=== PATIENT | male | born 1955 | race Caucasian/White ===

== ENCOUNTER 2020-12-15 20:08 | Emergency (ER) | payer BC, SELFPAY ==
[2020-12-15 20:13] VITALS: BP 179/89; PULSE 121; RESP 16; TEMP 36.8; O2SAT 97
--- NOTE | 2020-12-15 20:16 | ECG_ITS ---
Measurements Intervals [place] Rate: 120 P: 57 MD: 135 QRS: -11 QRSD: 93 T: 60 QT: 310 QTc: 440 Interpretive Statements SINUS TACHYCARDIA BORDERLINE ST ABNORMALITY- LATERAL LEADS BASELINE ARTIFACT- I, II, III, AVR, AVL,A VF, V1, V5-V6 ABNORMAL ECG Electronically Signed On 12-16-2020 8:20:40 [employer] by Nilson Jerez D.O.
--- NOTE | 2020-12-15 20:45 | ED.RECABL ---
HPI - Recheck/Abnormal Lab/Rx General Chief Complaint: Recheck/Abnormal Lab/Rx Stated Complaint: confusion and elevated BS Time Seen by Provider: 12/15/20 20:22 Source: patient Mode of arrival: ambulatory Limitations: no limitations History of Present Illness HPI narrative: A 65-year-old male was brought into the emergency department with his family member who expressed concern because they state that he has been acting odd and that his sugars have been high. Patient had an episode earlier today where he lost continence of his bowels and was somewhat altered. His sugars were checked and they were found to be high at that time. Ambulance was called. Patient states now laying in the bed he feels back to his normal self. Related Data Home Medications Medication Instructions Recorded Confirmed No Home Medications 12/16/20 12/16/20 Allergies Allergy/AdvReac Type Severity Reaction Status Date / Time No Known Allergies Allergy Verified 12/16/20 01:44 Review of Systems Review of Systems: Narrative: CONSTITUTIONAL: Denies fever, chills, or sweats. EYES: Denies visual changes, redness, or discharge. ENT: Denies rhinorrhea, congestion, sore throat, or otalgia. CARDIOVASCULAR: Denies chest pain, palpitations, or edema. RESPIRATORY: Denies cough or dyspnea. GASTROINTESTINAL: Denies abdominal pain, nausea, vomiting, or diarrhea. GENITOURINARY: Denies dysuria or hematuria. SKIN: Denies rash or itching. MUSCULOSKELETAL: Denies back pain, joint pain, or myalgia. NEUROLOGIC: Denies headache, numbness, dizziness, or weakness. PSYCHIATRIC: Denies anxiety or depression. Exam Narrative: Exam Narrative: GENERAL: Well-appearing, well-nourished, and in no acute distress. HEAD: Normocephalic, atraumatic. EYES: PERRLA and EOMI. ENT: Nares clear, no rhinorrhea or epistaxis. Mucous membranes moist. Oropharynx without tonsillar hypertrophy exudate or other lesions. Bilateral TMs pearly goldstein nonbulging NECK: Supple. No adenopathy or masses. No carotid bruits or JVD CHEST: Clear to auscultation. No respiratory distress. No wheezes rales or rhonchi HEART: Regular rate and rhythm. No murmur heard. Normal peripheral pulses. ABDOMEN: Soft, nontender, nondistended, normal active bowel sounds. EXTREMITIES: Normal range of motion. No edema. SKIN: Warm, dry, no rash. NEURO: No focal deficits. Alert and oriented x3. PSYCH: Normal mood and affect. Course Reevaluation(s) Reevaluation #1: Patient has been resting at this time. No further complaints. Patient's blood sugars have been on the decline. Time: 01:47 Vital Signs Vital signs: Vital Signs Temperature 36.8 C 12/15/20 20:13 Pulse Rate 121 H 12/15/20 20:13 Respiratory Rate 16 12/15/20 20:13 Blood Pressure 179/89 H 12/15/20 20:13 Pulse Oximetry 97 12/15/20 20:13 Temperature 36.8 C 12/15/20 20:13 Pulse Rate 101 H 12/16/20 01:30 Respiratory Rate 25 H 12/16/20 01:30 Blood Pressure 114/72 12/16/20 01:30 Pulse Oximetry 98 12/16/20 01:30 MDM - Recheck/Abnormal Lab/Rx MDM Narrative Medical decision making narrative: A 65-year-old male presents to the emergency department today with complaints of some confusion and elevated blood sugar. On my exam patient was alert appropriate and acting within reason. He was answering all questions correctly. Patient stated that he just felt unwell. Work-up ensued and showed that he had an elevated blood sugar, hyponatremia. When corrected his hyponatremia was only slightly below normal. Patient was given IV fluids and insulin. His sugars did decrease. Patient will need to follow-up with a primary care physician to get on a diabetic regimen. There is no signs of DKA at this time. Feel the patient may be discharged to follow-up with a PCP. Medical Records Attestation: I reviewed the patient's medical records. Lab Data Attestation: I reviewed the patient's lab results. Result diagrams: 12/15/20 21:16 12/15/20
[2020-12-15 21:00] VITALS: BP 103/58; PULSE 106; RESP 28; O2SAT 98
[2020-12-15 21:23] LABS: Basophils Absolute Auto 0.1 K/mm3 (0.0-0.1); Basophils Percent Auto 0.6 % (0.2-1.2); Eosinophils Percent Auto 0.1 % (0-4.4); Hematocrit 39.4 % (42.0-52.0); Hemoglobin 13.8 g/dL (14.0-18.0); Immature Granulocyte Absolute 0.11 K/mm3 (0.00-0.031); Immature Granulocyte Percent A 0.7 % (0-0.5); Lymphocytes Absolute Auto 0.98 K/mm3 (0.9-3.2); Lymphocytes Percent Auto 6.3 % (18.3-44.2); Mean Corpuscular Volume 88.5 fl (80-100); Mean Platelet Volume 8.4 fl (7.4-10.4); Monocytes Absolute Auto 1.1 K/mm3 (0.1-0.6); Monocytes Percent Auto 7.3 % (2.6-8.5); Neutrophils Absolute Auto 13.2 K/mm3 (1.3-6.7); Platelet Count Result 307 k/mm3 (150-375); Red Blood Count 4.45 M/mm3 (4.6-6.20); Red Cell Distribution Width 11.9 % (11.5-14.5); White Blood Count 15.6 K/mm3 (4.5-10.0)
[2020-12-15 21:28] LABS: Add Urine Microscopic? YES; Appearance Urine Clear (Clear); Bilirubin Urine Negative (Negative); Blood Urine 2+ (Negative); Color Urine Straw (Yellow); Glucose Urine UA 3+ mg/dL (Negative); Ketones Urine 2+ mg/dL (Negative); Leukocyte Esterase Ur Negative LEU/UL (Negative); Nitrate Urine Negative (Negative); Protein Urine 2+ mg/dL (Negative); Specific Grav Ur 1.028 (1.001-1.035); Urobilinogen Urine Negative mg/dL (<2.0); WBC Urine 0-3 /hpf
[2020-12-15 21:34] LABS: Alanine Aminotransferase 10 U/L (4-50); Albumin Level 3.5 g/dL (3.5-5.1); Alkaline Phosphatase 163 U/L (38-126); Anion Gap 9 mmol/L (8-16); Aspartate Amino Transferase 20 U/L (17-59); Bilirubin,Total 0.6 mg/dL (0.2-1.3); Blood Urea Nitrogen 10 mg/dL (9-20); Calcium 8.5 mg/dL (8.4-10.2); Carbon Dioxide 25 mmol/L (22-30); Chloride 92 mmol/L (98-107); Estimated CRCL calculation 80 ml/min; Estimated Glomerular Filt Rate > 60; Glucose 386 mg/dL (75-110); Lipase 23 U/L (23-300); Magnesium 1.8 mg/dL (1.6-2.3); Phosphorus 2.4 mg/dL (2.5-4.5); Potassium 3.6 mmol/L (3.4-5.0); Sodium 126 mmol/L (137-145)
[2020-12-15 21:38] LABS: Beta-Hydroxybutyrate/Acetoacetate 4.28 mmol/L (0.02-0.27)
[2020-12-15 21:41] LABS: Glucose Point of Care 387 (65-105)
[2020-12-15] MEDS: LACTATED RINGERS 1,000 ML 999 ML IV CONT (22:45)
[2020-12-15 23:00] VITALS: BP 123/76; PULSE 105; RESP 32; O2SAT 96
[2020-12-15 23:13] LABS: Fractional Inspired Oxygen 21 %; HCO3 VBG 21.4 mEq/l (24.0-30.0); PCO2 VBG 33.5 mmHg (42.0-48.0); pH VBG 7.424 (7.300-7.400)
[2020-12-15 23:15] LABS: Device ROOM AIR
[2020-12-15] MEDS: INSULIN HUMAN REGULAR (*BKC) 100 UNITS/ML SUB-Q (23:33)
[2020-12-16 00:15] LABS: Glucose Point of Care 359 (65-105)
[2020-12-16] MEDS: INSULIN HUMAN REGULAR (*BKC) 100 UNITS/ML IV PUSH (00:18)
[2020-12-16] MEDS: LACTATED RINGERS 1,000 ML 999 ML IV CONT (00:18)
[2020-12-16 01:30] VITALS: BP 114/72; PULSE 101; RESP 25; O2SAT 98
[2020-12-16 01:49] LABS: Glucose Point of Care 228 (65-105)
[2020-12-17 17:34] LABS: SARS-CoV-2 RNA PCR Negative
== END 2020-12-16 02:18 | disposition home or self-care (01) ==
PROVIDERS: Emergency Provider Emergency Medicine
DX: E11.65 Type 2 diabetes mellitus with hyperglycemia (principal); Z20.822 Contact with and (suspected) exposure to COVID-19
CPT/HCPCS: 36415; 80053; 81001; 82010; 82803; 82948; 83690; 83735; 83930; 84100; 85025; 93005; 96361; 96374; 99284; C9803; J1815; J7120; U0003; U0005

== ENCOUNTER → 2021-08-20 03:13 | Outpatient (CLI) | payer BC, MEDICAID, SELFPAY ==
[2021-08-20 19:13] LABS: SARS-CoV-2 RNA PCR Negative
== END ==
PROVIDERS: Visit Provider Internal Medicine Gastroenterology
DX: Z20.822 Contact with and (suspected) exposure to COVID-19 (principal)
CPT/HCPCS: C9803; U0003; U0005

== ENCOUNTER 2021-08-23 00:50 | Day surgery (SDC) | payer BC, MEDICAID, SELFPAY ==
[2021-08-08 12:59] VITALS: BMI 28.3
--- NOTE | 2021-08-22 13:56 | PM.HPGS ---
History of Present Illness History of Present Illness Consent: Risks, benefits, and alternatives have been discussed and questions answered. Patient agrees to proceed with procedure. Chief complaint: diarrhea Narrative: Sukhdev Lowery III is a 66 year old male was had a change in bowel habits. he has been suffering from diarrhea for the past couple of years. Stopping metformin did not help. Review of Systems Review of Systems: All systems reviewed & are unremarkable except as noted in HPI and below PMFSH Past Medical History Medical History Diabetes Diarrhea HTN (hypertension) IBS (irritable bowel syndrome) Social History Social History Smoking status: Never smoker Alcohol intake: never Substance use: never Living arrangements: with family Spiritual care concerns: No Meds Home Medications and Allergies Home Medications Medication Instructions Recorded Confirmed Type cyclobenzaprine 10 mg tablet 10 mg PO .as needed PRN tablet 08/05/21 08/23/21 History gabapentin 300 mg capsule 300 mg PO HS cap 08/05/21 08/23/21 History insulin aspart U-100 100 unit/mL 8 unit SUBCUT TID ml 08/05/21 08/23/21 History (3 mL) subcutaneous pen insulin detemir U-100 100 unit/mL 24 unit SUBCUT QPM ml 08/05/21 08/23/21 History (3 mL) subcutaneous pen lisinopril 20 mg tablet 20 mg PO DAILY 08/05/21 08/23/21 History metoprolol tartrate 50 mg tablet 25 mg PO BID tablet 08/05/21 08/23/21 History Allergies Allergy/AdvReac Type Severity Reaction Status Date / Time No Known Allergies Allergy Verified 08/23/21 10:18 Exam Resp: Auscultation: clear to auscultation bilaterally Cardio: Rate: regular rate Rhythm: regular rhythm GI: GI Palp: Yes Soft to palpation and No Tenderness to palpation present (GI) Assessment and Plan Assessment and plan (1) Diarrhea: Code(s): R19.7 - Diarrhea, unspecified Status: Acute Assessment and Plan: Colonoscopy with possible biopsy or polypectomy or cautery or injection of substances.
[2021-08-23 10:07] LABS: Glucose Point of Care 192 mg/dl (65-105)
[2021-08-23 10:20] VITALS: BP 102/64; PULSE 67; RESP 14; TEMP 35.7; O2SAT 97
[2021-08-23] MEDS: LACTATED RINGERS 1,000 ML 150 ML IV CONT (10:27)
--- NOTE | 2021-08-23 10:36 | WPDANESEPPF ---
Anes - Initial Pre Proc Eval Procedure: Operation Date: 08/23/21 11:00 Proposed Procedures p Colonoscopy - Cm Wilks MD Date/Time: 08/23/21 10:36 Surgeon: Cm Wilks MD Pre Op Diagnosis: diarrhea Patient Data Age: 66 Gender: M Height: 1.7 m Weight: 81.8 kg Last Vital Signs Temp 96.3 F L 08/23/21 10:20 Pulse 67 08/23/21 10:20 Resp 14 08/23/21 10:20 BP 102/64 08/23/21 10:20 Pulse Ox 97 08/23/21 10:20 Allergies Allergy/AdvReac Type Severity Reaction Status Date / Time No Known Allergies Allergy Verified 08/23/21 10:18 Home Medications Medication Instructions Recorded Confirmed Type cyclobenzaprine 10 mg tablet 10 mg PO .as needed PRN tablet 08/05/21 08/23/21 History gabapentin 300 mg capsule 300 mg PO HS cap 08/05/21 08/23/21 History insulin aspart U-100 100 unit/mL 8 unit SUBCUT TID ml 08/05/21 08/23/21 History (3 mL) subcutaneous pen insulin detemir U-100 100 unit/mL 24 unit SUBCUT QPM ml 08/05/21 08/23/21 History (3 mL) subcutaneous pen lisinopril 20 mg tablet 20 mg PO DAILY 08/05/21 08/23/21 History metoprolol tartrate 50 mg tablet 25 mg PO BID tablet 08/05/21 08/23/21 History Laboratory Tests 08/23/21 10:03 POC Capillary Glucose 192 mg/dl H mg/dl (65-105) Patient hx anesthesia problems: none Family hx anesthesia problems: none Results Review: All pre-operative results and documents have been reviewed as part of the pre-operative evaluation. [facility] Past Medical History Medical History (Updated 08/05/21 @ 12:11 by TESSA Brink) Diabetes Diarrhea HTN (hypertension) IBS (irritable bowel syndrome) Social History Social History Smoking status: Never smoker Alcohol intake: never Substance use: never Living arrangements: with family Spiritual care concerns: No Anes - Eval Final PreProcedure Day of Procedure 08/23/21 10:36 Patient weight: normal Heart: regular rate and rhythm Lungs: clear to auscultation Airway: Mallampati scale class II Neurological: alert and oriented Last oral intake: >/= 8 hours ASA classification: II Emergent: no Anesthetic plan: proceed Anesthesia type and monitoring: general GIVS and standard monitoring Results Review: All pre-operative results and documents have been reviewed as part of the pre-operative evaluation. Informed Consent: The patient's anesthetic plan and its attendant risks and benefits were discussed with the patient/family/POA. Questions were solicited and answers provided to the satisfaction of the patient/family/POA.
[2021-08-23 11:19] VITALS: BP 81/52; PULSE 75; RESP 21; O2SAT 98
[2021-08-23 11:29] VITALS: BP 82/53; PULSE 77; RESP 19; O2SAT 98
[2021-08-23 11:38] VITALS: BP 102/75; PULSE 80; RESP 26; O2SAT 80
== END 2021-08-23 11:53 | disposition home or self-care (01) ==
PROVIDERS: PCP Family Medicine; Visit Provider Internal Medicine Gastroenterology
PROC: 0DJD8ZZ Inspection of Lower Intestinal Tract, Via Natural or Artificial Opening Endoscopic (ICD-10-PCS; CPT 45378; principal; 2021-08-23 11:00)
DX: Z12.11 Encounter for screening for malignant neoplasm of colon (principal); D12.2 Benign neoplasm of ascending colon; D12.4 Benign neoplasm of descending colon; D12.5 Benign neoplasm of sigmoid colon; K63.5 Polyp of colon; R19.7 Diarrhea, unspecified; Z79.4 Long term (current) use of insulin; E11.9 Type 2 diabetes mellitus without complications; I10 Essential (primary) hypertension; K58.9 Irritable bowel syndrome, unspecified
CPT/HCPCS: 45380; 45385; 82948; 88305; J2704; J7120

== ENCOUNTER 2022-03-27 10:27 | Outpatient (CLI) | payer BC, MEDICAID, SELFPAY ==
--- NOTE | ~2022-03-27 | XR_ITS ---
EXAMINATION: XR chest 2V DATE: 03/27/2022 11:06 INDICATION: Dyspnea. Cough and congestion. Midsternal chest pain. TECHNIQUE: frontal and lateral views of the chest were obtained. COMPARISON: None FINDINGS: Opacities in the bilateral mid and lower lung zones which could represent pneumonia, mild pulmonary e alba, atelectasis or some combination thereof. Likely small bilateral pleural effusions with blunting at the bilateral posterior sulci and costophrenic angles. The cardiomediastinal silhouette is normal . Mild thoracic spondylosis. T12 compression fracture with 40% anterior vertebral body height loss. A dditional minimal anterior wedging at T8 and T9. IMPRESSION: 1. Opacities in the bilateral mid and lower lung zones which could represent pneumonia, pulmonary laura ma, atelectasis or some combination thereof. 2. Small bilateral pleural effusions. Reviewed, dictated and finalized at location A. IMPRESSION: 1. Opacities in the bilateral mid and lower lung zones which could represent pn eumonia, pulmonary edema, atelectasis or some combination thereof. 2. Small bilateral pleural effusions.
[2022-03-27 10:59] LABS: Basophils Absolute Auto 0.07 K/mm3 (0.00-0.10); Eosinophils Absolute Auto 0.05 K/mm3 (0.02-0.50); Eosinophils Percent Auto 0.7 % (1.0-6.0); Hematocrit 36.5 % (40.0-54.0); Hemoglobin 12.5 g/dL (14.0-18.0); Immature Granulocyte Absolute 0.01 K/mm3 (0.00-0.00); Immature Granulocyte Percent A 0.1 % (0.0-0.0); Lymphocytes Absolute Auto 1.48 K/mm3 (1.10-4.50); Lymphocytes Percent Auto 21.2 % (18.0-42.0); Mean Corpuscular HGB Conc 34.2 g/dL (32.0-36.0); Mean Corpuscular Hemoglobin 30.4 pg (27.0-31.0); Mean Corpuscular Volume 88.8 fL (78.0-102.0); Mean Platelet Volume 9.2 fl (8.7-11.0); Monocytes Absolute Auto 0.49 K/mm3 (0.10-0.90); Neutrophils Absolute Auto 4.9 K/mm3 (1.7-7.2); Platelet Count Result 196 K/mm3 (150-420); Red Blood Count 4.11 M/mm3 (4.70-6.10); Red Cell Distribution Width 13.3 % (11.6-14.4)
[2022-03-27 11:14] LABS: Hemoglobin A1C 4.8 % (<5.7)
[2022-03-27 11:27] LABS: Alanine Aminotransferase 19 U/L (16-63); Albumin Level 1.7 g/dL (3.4-5.0); Alkaline Phosphatase 76 U/L (46-116); Anion Gap 3 mmol/L (8-16); Aspartate Amino Transferase 45 U/L (15-37); Bilirubin,Total 0.3 mg/dL (0.00-1.00); Blood Urea Nitrogen 28 mg/dL (7-18); Carbon Dioxide 29 mmol/L (21-32); Chloride 108 mmol/L (98-108); Estimated Glomerular Filt Rate 58; Glucose 73 mg/dL (70-99); NT Pro B Type Natriuretic Pept 4802 pg/mL (0-125); Osmolality Calculated 294 mOsm/kg (285-295); Potassium 3.6 mmol/L (3.5-5.1); Sodium 140 mmol/L (136-145); Total Protein 5.6 g/dL (6.4-8.2)
[2022-03-27 13:06] LABS: Creatinine Urine 88.79 mg/dL (40-278); MALB Creatinine Ratio 450.5 mg/g (0-30); Microalbumin Urine Random > 400.0 mg/L
[2022-03-31 12:48] LABS: Vitamin D 25 Hydroxy 6 ng/mL (30-100)
== END 2022-03-27 10:28 | disposition home or self-care (01) ==
LOC: CHSLAB 10:36
PROVIDERS: PCP Family Medicine
DX: R06.00 Dyspnea, unspecified (principal); E11.8 Type 2 diabetes mellitus with unspecified complications; N18.9 Chronic kidney disease, unspecified; R80.9 Proteinuria, unspecified
CPT/HCPCS: 36415; 71046; 80053; 82043; 82306; 83036; 83880; 84550; 85025

== ENCOUNTER 2022-03-29 08:25 | Outpatient (CLI) | payer BC, MEDICAID, SELFPAY ==
[2022-03-29 08:41] LABS: Basophils Absolute Auto 0.06 K/mm3 (0.00-0.10); Basophils Percent Auto 1.1 % (0.0-1.0); Eosinophils Absolute Auto 0.16 K/mm3 (0.02-0.50); Eosinophils Percent Auto 3.1 % (1.0-6.0); Hematocrit 33.9 % (40.0-54.0); Hemoglobin 11.4 g/dL (14.0-18.0); Immature Granulocyte Absolute 0.01 K/mm3 (0.00-0.00); Immature Granulocyte Percent A 0.2 % (0.0-0.0); Lymphocytes Percent Auto 38.3 % (18.0-42.0); Mean Corpuscular HGB Conc 33.6 g/dL (32.0-36.0); Mean Corpuscular Hemoglobin 30.1 pg (27.0-31.0); Mean Corpuscular Volume 89.4 fL (78.0-102.0); Mean Platelet Volume 8.4 fl (8.7-11.0); Monocytes Absolute Auto 0.36 K/mm3 (0.10-0.90); Monocytes Percent Auto 6.9 % (2.0-11.0); Neutrophils Absolute Auto 2.6 K/mm3 (1.7-7.2); Neutrophils Percent Auto 50.4 % (50.0-70.0); Platelet Count Result 209 K/mm3 (150-420); Red Blood Count 3.79 M/mm3 (4.70-6.10); Red Cell Distribution Width 13.3 % (11.6-14.4); White Blood Count 5.2 K/mm3 (4.8-10.8)
[2022-03-29 09:06] LABS: Alanine Aminotransferase 25 U/L (16-63); Albumin Level 1.6 g/dL (3.4-5.0); Alkaline Phosphatase 71 U/L (46-116); Anion Gap 5 mmol/L (8-16); Aspartate Amino Transferase 50 U/L (15-37); Bilirubin,Total 0.1 mg/dL (0.00-1.00); Blood Urea Nitrogen 34 mg/dL (7-18); Calcium 7.8 mg/dL (8.5-10.1); Carbon Dioxide 29 mmol/L (21-32); Chloride 106 mmol/L (98-108); Estimated Glomerular Filt Rate 56; Glucose 67 mg/dL (70-99); NT Pro B Type Natriuretic Pept 2634 pg/mL (0-125); Osmolality Calculated 295 mOsm/kg (285-295); Potassium 3.5 mmol/L (3.5-5.1); Sodium 140 mmol/L (136-145); Total Protein 5.3 g/dL (6.4-8.2)
== END 2022-03-29 08:26 | disposition home or self-care (01) ==
LOC: CHSLAB 08:28
PROVIDERS: PCP Family Medicine; Visit Provider Family Medicine
DX: I50.9 Heart failure, unspecified (principal)
CPT/HCPCS: 36415; 80053; 83880; 85025

== ENCOUNTER 2022-03-31 13:30 | Outpatient (CLI) | payer BC, MEDICAID, SELFPAY ==
--- NOTE | 2022-03-31 14:24 | ECHO_ITS ---
Patient Info Name: Sukhdev Lowery Age: 66 years : 1955 Gender: Male Ht: 68 in Wt: 210 lbs BSA: 2.17 m2 HR: 72 bpm BP: 191 / 75 mmHg Technical Quality: Good Exam Date: 03/31/2022 1:30 PM Exam Location: [facility] Patient Status: Outpatient Admit Date: 03/31/2022 Staff Ordering Physician: Adryan Galarza MD Art Supervisor: Will Martin, MARIBELL, RT Attending Provider: Adryan Galarza MD Referring Physician: Geovanni GONZALES; Exam Type: CA echo doppler color flow Study Info Indications I50.9 - Heart failure, unspecified Complete two-dimensional, color flow and Doppler transthoracic echocardiogram is performed. Strain analysis performed. Summary 1. Complete two-dimensional, color flow and Doppler transthoracic echocardiogram is performed. 2. Left ventricular chamber dimension is normal. 3. Left ventricular systolic function is normal, estimated at 55-60%. 4. There is moderately increased left ventricular wall thickness. 5. The left ventricular diastolic function is grade I diastolic dysfunction. 6. E/e' 18 is elevated. 7. Global longitudinal strain is mildly abnormal at -16.8%. 8. Left atrial chamber dimension is mildly enlarged. 9. There is moderate aortic valve sclerosis. 10. There is mild aortic valve stenosis with a peak velocity of 146 cm/s, mean gradient of 4 mmHg, and aortic valve area of 1.9 cm2. 11. The mitral valve has mildly calcified annulus. 12. There is mild mitral valve regurgitation. 13. There is trace tricuspid valve regurgitation. 14. Moderate pulmonary hypertension, estimated pulmonary arterial systolic pressure is 53 mmHg. Left Ventricle E/e' 18 is elevated. Global longitudinal strain is mildly abnormal at -16.8%. Left ventricular chamber dimension is normal. Left ventricular systolic function is normal, estimated at 55-60%. There is moderately increased left ventricular wall thickness. The left ventricular diastolic function is grade I diastolic dysfunction. Right Ventricle Right ventricular systolic function is normal and with normal TAPSE 2.7 cm. Right ventricular chamber dimension is normal. Left Atria Left atrial chamber dimension is mildly enlarged. Right Atria Right atrial chamber dimension is normal. Aortic Valve The aortic valve is trileaflet. There is moderate aortic valve sclerosis. There is mild aortic valve stenosis with a peak velocity of 146 cm/s, mean gradient of 4 mmHg, and aortic valve area of 1.9 cm2. There is no aortic valve regurgitation. Pulmonic Valve There is no pulmonic regurgitation. Mitral Valve The mitral valve has mildly calcified annulus. There is no mitral valve stenosis. There is mild mitral valve regurgitation. Tricuspid Valve There is trace tricuspid valve regurgitation. Moderate pulmonary hypertension, estimated pulmonary arterial systolic pressure is 53 mmHg. Pericardium/Pleural There is no pericardial effusion. Inferior Vena Cava Normal inferior vena cava with >50% collapse upon inspiration consistent with normal right atrial pressure, 5 mmHg. Aorta The aortic root size at the sinus of Valsalva is normal. Left Ventricular Outflow Tract Name Value Normal LVOT 2D LVOT Diameter 2.0 cm
== END 2022-03-31 13:31 | disposition home or self-care (01) ==
LOC: CHSIMG 13:32
PROVIDERS: PCP Family Medicine; Visit Provider Family Medicine
DX: I50.9 Heart failure, unspecified (principal)
CPT/HCPCS: 93306

== ENCOUNTER 2022-10-29 13:15 | Outpatient (CLI) | payer BC, MEDICAID, SELFPAY ==
[2022-10-29 13:51] LABS: Alanine Aminotransferase 18 U/L (16-63); Albumin Level 3.1 g/dL (3.4-5.0); Alkaline Phosphatase 91 U/L (46-116); Anion Gap 9 mmol/L (8-16); Aspartate Amino Transferase 17 U/L (15-37); Bilirubin,Total 0.1 mg/dL (0.00-1.00); Blood Urea Nitrogen 74 mg/dL (7-18); Calcium 8.2 mg/dL (8.5-10.1); Carbon Dioxide 20 mmol/L (21-32); Chloride 108 mmol/L (98-108); Estimated Glomerular Filt Rate 25; Glucose 132 mg/dL (70-99); Osmolality Calculated 307 mOsm/kg (285-295); Potassium 5.9 mmol/L (3.5-5.1); Sodium 137 mmol/L (136-145); Total Protein 6.5 g/dL (6.4-8.2)
== END 2022-10-29 13:16 | disposition home or self-care (01) ==
LOC: CHSLAB 13:18
PROVIDERS: PCP Family Medicine; Visit Provider Family Medicine
DX: E11.8 Type 2 diabetes mellitus with unspecified complications (principal)
CPT/HCPCS: 36415; 80053

== ENCOUNTER 2022-11-01 09:10 | Outpatient (CLI) | payer MEDICARE, BC, MEDICAID, SELFPAY ==
[2022-11-01 09:48] LABS: Anion Gap 13 mmol/L (8-16); Blood Urea Nitrogen 59 mg/dL (7-18); Calcium 7.9 mg/dL (8.5-10.1); Carbon Dioxide 18 mmol/L (21-32); Chloride 111 mmol/L (98-108); Estimated Glomerular Filt Rate 23; Glucose 152 mg/dL (70-99); Osmolality Calculated 313 mOsm/kg (285-295); Potassium 4.6 mmol/L (3.5-5.1); Sodium 142 mmol/L (136-145)
== END 2022-11-01 09:11 | disposition home or self-care (01) ==
PROVIDERS: PCP Family Medicine
DX: E87.5 Hyperkalemia (principal)
CPT/HCPCS: 36415; 80048

== ENCOUNTER 2022-11-05 09:34 | Outpatient (CLI) | payer BC, MEDICAID, SELFPAY ==
[2022-11-05 10:31] LABS: Anion Gap 10 mmol/L (8-16); Blood Urea Nitrogen 85 mg/dL (7-18); Carbon Dioxide 24 mmol/L (21-32); Chloride 108 mmol/L (98-108); Estimated Glomerular Filt Rate 21; Glucose 172 mg/dL (70-99); Osmolality Calculated 323 mOsm/kg (285-295); Potassium 3.3 mmol/L (3.5-5.1); Sodium 142 mmol/L (136-145)
== END 2022-11-05 09:35 | disposition home or self-care (01) ==
PROVIDERS: PCP Family Medicine
DX: E87.5 Hyperkalemia (principal)
CPT/HCPCS: 36415; 80048

== ENCOUNTER 2022-11-27 08:59 | Outpatient (CLI) | payer BC, MEDICAID, SELFPAY ==
[2022-11-27 09:53] LABS: Creatinine Urine 35.64 mg/dL (40-278)
[2022-11-27 09:59] LABS: MALB Creatinine Ratio 1122.3 mg/g (0-30); Microalbumin Urine Random > 400.0 mg/L
[2022-11-27 10:32] LABS: Anion Gap 9 mmol/L (8-16); Blood Urea Nitrogen 79 mg/dL (7-18); Calcium 8.3 mg/dL (8.5-10.1); Carbon Dioxide 28 mmol/L (21-32); Chloride 101 mmol/L (98-108); Estimated Glomerular Filt Rate 27; Glucose 176 mg/dL (70-99); Osmolality Calculated 313 mOsm/kg (285-295); Potassium 2.8 mmol/L (3.5-5.1); Sodium 138 mmol/L (136-145); Uric Acid 8.5 mg/dL (3.5-7.2)
== END 2022-11-27 09:00 | disposition home or self-care (01) ==
LOC: CHSLAB 09:04
PROVIDERS: PCP Family Medicine
DX: N18.4 Chronic kidney disease, stage 4 (severe) (principal)
CPT/HCPCS: 36415; 80048; 82043; 84550

== ENCOUNTER 2022-12-15 09:09 | Outpatient (CLI) | payer BC, MEDICAID, SELFPAY ==
[2022-12-15 10:01] LABS: Anion Gap 9 mmol/L (8-16); Blood Urea Nitrogen 66 mg/dL (7-18); Carbon Dioxide 27 mmol/L (21-32); Chloride 105 mmol/L (98-108); Estimated Glomerular Filt Rate 36; Glucose 186 mg/dL (70-99); Magnesium 2.1 mg/dL (1.8-2.4); Osmolality Calculated 316 mOsm/kg (285-295); Potassium 3.2 mmol/L (3.5-5.1); Sodium 141 mmol/L (136-145)
[2022-12-18 21:00] LABS: Cortisol Random 22.8 mcg/dL (***)
== END 2022-12-15 09:10 | disposition home or self-care (01) ==
LOC: CHSLAB 09:15
PROVIDERS: PCP Family Medicine
DX: N18.4 Chronic kidney disease, stage 4 (severe) (principal)
CPT/HCPCS: 36415; 80048; 82533; 83735

== ENCOUNTER 2023-01-27 09:00 | Outpatient (CLI) | payer MEDICARE, MEDICAID, SELFPAY ==
[2023-01-27 09:38] LABS: Appearance Urine Clear (Clear); Bilirubin Urine Negative (Negative); Blood Urine 2+ (Negative); Color Urine Light Yellow (Yellow); Glucose Urine UA Trace (Negative); Ketones Urine Negative (Negative); Leukocyte Esterase Ur Negative (Negative); Nitrate Urine Negative (Negative); Protein Urine 3+ (Negative); Urobilinogen Urine 0.2 mg/dL (0.2-1.0)
[2023-01-27 09:55] LABS: Add Urine Microscopic? YES; Bacteria Urine Trace /hpf; WBC Urine None seen /hpf (0-3)
[2023-01-27 10:13] LABS: Creatinine Urine 33.58 mg/dL (40-278)
[2023-01-27 10:14] LABS: MALB Creatinine Ratio 1191.1 mg/g (0-30); Microalbumin Urine Random > 400.0 mg/L; Total Protein Urine Random > 250.0 mg/dL (0.0-11.9)
[2023-01-27 10:24] LABS: Anion Gap 9 mmol/L (8-16); Blood Urea Nitrogen 54 mg/dL (7-18); Carbon Dioxide 26 mmol/L (21-32); Chloride 111 mmol/L (98-108); Estimated Glomerular Filt Rate 35; Glucose 114 mg/dL (70-99); Magnesium 1.9 mg/dL (1.8-2.4); Osmolality Calculated 317 mOsm/kg (285-295); Potassium 3.4 mmol/L (3.5-5.1); Sodium 146 mmol/L (136-145); Uric Acid 6.3 mg/dL (3.5-7.2)
[2023-01-30 05:33] LABS: Anti Nuclear Antibody Pattern Nuclear, Speckled
[2023-01-30 21:05] LABS: Albumin 2.8 g/dL (3.8-4.8); Alpha 1 Globulin 0.3 g/dL (0.2-0.3); Alpha 2 Globulin 0.6 g/dL (0.5-0.9); Beta 1 Globulin 0.3 g/dL (0.4-0.6); Gamma Globulin 0.9 g/dL (0.8-1.7); Protein, Total 5.1 g/dL (6.1-8.1)
[2023-01-30 21:43] LABS: Kappa\\Lambda Light Chains 2.57 (0.26-1.65); Lambda Light Chain 46.8 mg/L (5.7-26.3)
== END 2023-01-27 09:01 | disposition home or self-care (01) ==
LOC: CHSLAB 09:04
PROVIDERS: PCP Family Medicine
DX: N18.4 Chronic kidney disease, stage 4 (severe) (principal); R80.9 Proteinuria, unspecified
CPT/HCPCS: 36415; 80048; 81001; 81050; 82043; 83735; 83883; 84155; 84156; 84165; 84550; 86038; 86039; 86334

== ENCOUNTER 2023-02-10 08:45 | Outpatient (CLI) | payer MEDICARE, SELFPAY ==
[2023-02-10 09:31] LABS: Anion Gap 7 mmol/L (8-16); Blood Urea Nitrogen 60 mg/dL (7-18); Carbon Dioxide 30 mmol/L (21-32); Chloride 112 mmol/L (98-108); Estimated Glomerular Filt Rate 32; Glucose 160 mg/dL (70-99); Magnesium 2.1 mg/dL (1.8-2.4); Osmolality Calculated 327 mOsm/kg (285-295); Potassium 3.3 mmol/L (3.5-5.1); Sodium 149 mmol/L (136-145)
[2023-02-13 04:16] LABS: Cortisol Random 19.2 mcg/dL (***)
== END 2023-02-10 08:46 | disposition home or self-care (01) ==
LOC: CHSLAB 08:49
PROVIDERS: PCP Family Medicine
DX: N18.4 Chronic kidney disease, stage 4 (severe) (principal)
CPT/HCPCS: 36415; 80048; 82533; 83735

== ENCOUNTER 2023-03-23 08:58 | Outpatient (CLI) | payer MEDICARE, SELFPAY ==
[2023-03-23 09:42] LABS: Creatinine Urine 62.38 mg/dL (40-278)
[2023-03-23 09:44] LABS: Anion Gap 9 mmol/L (8-16); Blood Urea Nitrogen 80 mg/dL (7-18); Carbon Dioxide 24 mmol/L (21-32); Chloride 111 mmol/L (98-108); Estimated Glomerular Filt Rate 23; Glucose 136 mg/dL (70-99); Magnesium 2.1 mg/dL (1.8-2.4); Osmolality Calculated 324 mOsm/kg (285-295); Potassium 4.1 mmol/L (3.5-5.1); Sodium 144 mmol/L (136-145)
[2023-03-23 10:13] LABS: MALB Creatinine Ratio 641.2 mg/g (0-30); Microalbumin Urine Random > 400.0 mg/L; Total Protein Urine Random > 250.0 mg/dL (0.0-11.9)
== END 2023-03-23 08:59 | disposition home or self-care (01) ==
LOC: CHSLAB 09:02
PROVIDERS: PCP Family Medicine
DX: N18.4 Chronic kidney disease, stage 4 (severe) (principal)
CPT/HCPCS: 36415; 80048; 81050; 82043; 83735; 84156

== ENCOUNTER 2023-05-21 08:45 | Outpatient (CLI) | payer MEDICARE, MEDICAID, SELFPAY ==
[2023-05-21 09:26] LABS: Hemoglobin 10.6 g/dL (12.4-15.3); Mean Corpuscular HGB Conc 34.2 g/dL (32.0-36.0); Mean Corpuscular Hemoglobin 30.5 pg (27.0-31.0); Mean Corpuscular Volume 89.3 fL (78.0-102.0); Mean Platelet Volume 9.3 fl (8.7-11.0); Platelet Count Result 159 K/mm3 (150-420); Red Blood Count 3.47 M/mm3 (4.70-6.10); Red Cell Distribution Width 13.1 % (11.6-14.4)
[2023-05-21 09:58] LABS: Creatinine Urine 35.92 mg/dL (40-278)
[2023-05-21 10:01] LABS: Anion Gap 8 mmol/L (8-16); Blood Urea Nitrogen 56 mg/dL (7-18); Calcium 8.1 mg/dL (8.5-10.1); Carbon Dioxide 23 mmol/L (21-32); Chloride 111 mmol/L (98-108); Estimated Glomerular Filt Rate 29; Glucose 116 mg/dL (70-99); Osmolality Calculated 310 mOsm/kg (285-295); Potassium 4.2 mmol/L (3.5-5.1); Sodium 142 mmol/L (136-145)
[2023-05-21 10:54] LABS: MALB Creatinine Ratio 1113.5 mg/g (0-30); Ur Ttl Prot Creatinine Ratio 6.96 mg/mg (0-0.20)
[2023-05-21 10:55] LABS: Microalbumin Urine Random > 400.0 mg/L; Total Protein Urine Random > 250.0 mg/dL (0.0-11.9)
[2023-05-23 17:22] LABS: Complement Total CH50 >60 U/mL (31-60)
[2023-05-23 21:34] LABS: Kappa\\Lambda Light Chains 2.51 (0.26-1.65); Lambda Light Chain 55.7 mg/L (5.7-26.3)
[2023-05-23 22:29] LABS: Albumin 2.4 g/dL (3.8-4.8); Alpha 1 Globulin 0.3 g/dL (0.2-0.3); Alpha 2 Globulin 0.7 g/dL (0.5-0.9); Beta 1 Globulin 0.3 g/dL (0.4-0.6); Protein, Total 4.9 g/dL (6.1-8.1)
[2023-05-24 07:50] LABS: Vitamin D 25 Hydroxy 42 ng/mL (30-100)
[2023-05-25 05:26] LABS: Anti Nuclear Antibody Pattern Nuclear, Speckled
[2023-05-27 21:47] LABS: ANCA Screen Negative (Negative)
== END 2023-05-21 08:46 | disposition home or self-care (01) ==
LOC: CHSLAB 08:51
PROVIDERS: PCP Family Medicine
DX: R80.9 Proteinuria, unspecified (principal); N18.4 Chronic kidney disease, stage 4 (severe)
CPT/HCPCS: 36415; 80048; 82043; 82306; 82570; 83883; 84155; 84156; 84165; 85027; 86036; 86038; 86039; 86162; 86225; 86334

== ENCOUNTER 2023-12-16 10:55 | Outpatient (CLI) | payer MEDICARE, MEDICAID, SELFPAY ==
[2023-12-16] MEDS: EPOETIN ALFA-EPBX 10,000 UNITS/ML VIAL 10000 UNITS SUB-Q (11:21)
[2023-12-16 12:43] VITALS: BP 168/69; PULSE 68; RESP 16; TEMP 36.4; O2SAT 97; BMI 25.2
--- NOTE | 2023-12-16 12:44 | PC.NURSE ---
Patient was here for Retacrit injection. Education given to patient and dtr. All concerns voiced answered. Retacrit injection administered. SEE MAR. Tolerated well. Will return 12/30/23 at 1100 for next injection. Safe exit of hospital per ambulatory with dtr.
== END 2023-12-16 10:56 | disposition home or self-care (01) ==
PROVIDERS: PCP Family Medicine
DX: N18.4 Chronic kidney disease, stage 4 (severe) (principal); D63.1 Anemia in chronic kidney disease
CPT/HCPCS: 96372; Q5106

== ENCOUNTER 2023-12-30 10:53 | Outpatient (CLI) | payer MEDICARE, MEDICAID, SELFPAY ==
[2023-12-30 11:07] VITALS: BP 161/74; PULSE 75; RESP 14; TEMP 36.6; O2SAT 100; BMI 25.2
[2023-12-30] MEDS: EPOETIN ALFA-EPBX 10,000 UNITS/ML VIAL 10000 UNITS SUB-Q (11:13)
--- NOTE | 2023-12-30 11:20 | PC.NURSE ---
Patient here for Retacrit injection. Education given 2 weeks ago- went over again. No concerns voiced. Retacrit injection administered. SEE MAR. Tolerated well. Will return 01/13/24 at 1100 for next injection. Safe exit of hospital with family member per ambulatory.
== END 2023-12-30 11:20 | disposition home or self-care (01) ==
LOC: CHSTREATRM 10:59
PROVIDERS: PCP Family Medicine
DX: N18.4 Chronic kidney disease, stage 4 (severe) (principal); D63.1 Anemia in chronic kidney disease
CPT/HCPCS: 96372; Q5106

== ENCOUNTER 2024-01-13 11:01 | Outpatient (CLI) | payer MEDICARE, MEDICAID, SELFPAY ==
--- NOTE | 2024-01-13 11:26 | PC.NURSE ---
Pt escorted to room with daughter. Voices no complaints at this time.
[2024-01-13 11:27] VITALS: BMI 25.5
[2024-01-13 11:29] VITALS: BP 159/71; PULSE 71; RESP 16; TEMP 36.2; O2SAT 100
[2024-01-13] MEDS: EPOETIN ALFA-EPBX 10,000 UNITS/ML VIAL 10000 UNITS IV PUSH (11:34)
--- NOTE | 2024-01-13 11:37 | PC.NURSE ---
Pt left at 1138 with daughter walking with cane without difficulty.
--- NOTE | 2024-01-21 09:32 | PC.NURSE ---
Patient had an SQ injection and left without difficulty
== END 2024-01-13 11:02 | disposition home or self-care (01) ==
LOC: CHSTREATRM 11:06
PROVIDERS: PCP Family Medicine
DX: N18.4 Chronic kidney disease, stage 4 (severe) (principal); D63.1 Anemia in chronic kidney disease
CPT/HCPCS: 96372; Q5106

== ENCOUNTER 2024-01-27 10:49 | Outpatient (CLI) | payer MEDICARE, SELFPAY ==
[2024-01-27] MEDS: EPOETIN ALFA-EPBX 10,000 UNITS/ML VIAL 10000 UNITS IV PUSH (11:21)
[2024-01-27 11:25] VITALS: PULSE 76; RESP 16; TEMP 35.9; O2SAT 98; BMI 25.2
== END 2024-01-27 10:50 | disposition home or self-care (01) ==
LOC: CHSTREATRM 10:56
PROVIDERS: PCP Family Medicine
DX: N18.4 Chronic kidney disease, stage 4 (severe) (principal); D63.1 Anemia in chronic kidney disease
CPT/HCPCS: 96372; Q5106

== ENCOUNTER 2024-02-10 19:12 | Emergency (ER) | payer MEDICARE, SELFPAY ==
[2024-02-10] VITALS (15 sets, daily range): BP systolic 103–132; BP diastolic 51–62; PULSE 66–76; RESP 16–25; TEMP 36.4; O2SAT 95–99
--- NOTE | ~2024-02-10 | XR_ITS ---
EXAMINATION: XR chest 1V portable Exam Date/Time: 02/10/2024 21:00 CDT HISTORY: shortness of breath Comparison: 03/27/2022. RESULT: Lines, tubes, and devices: None. Lungs and pleura: Clear. Cardiomediastinal silhouette: Stable. Calcified nodes. Other: No acute osseous or upper abdominal finding. IMPRESSION: No acute cardiopulmonary process. Reviewed, dictated and finalized at location K.
--- NOTE | ~2024-02-10 | CT_ITS ---
EXAMINATION: CT brain wo con DATE: 02/10/2024 21:28 INDICATION: altered mental status . TECHNIQUE: Computed tomography (CT) of the head was performed without intravenous contrast. The mA wa s adjusted according to patient size. Iterative reconstruction technique was employed. The dose-lengt h product was 605.33 mGy-cm. COMPARISON: None. FINDINGS: No acute intracranial hemorrhage or extra-axial fluid collection. No hydrocephalus, mass, or herniation. No acute ischemic infarct. Unremarkable dural venous sinus attenuation. No acute osseous abnormality. The aerated spaces are clear. Status post right mastoidectomy, with debris in the surgical bed. 1.7 cm calcified mass projecting of f the left aspect of the midline falx, possible meningioma. Mild atrophy and chronic white matter brielle nge. Atherosclerotic intracranial calcification. Bilateral lens replacements. IMPRESSION: No acute intracranial process. Status post right mastoidectomy with debris in the surgical bed which may represent impacted cerumen. Correlate for findings of ear drainage. 1.7 cm presumed meningioma at the midline falx. Reviewed, dictated and finalized at location K. IMPRESSION: No acute intracranial process. Status post right mastoidectomy with debris in the surgical bed which may repre sent impacted cerumen. Correlate for findings of ear drainage. 1.7 cm presumed meningioma at the midline falx.
--- NOTE | 2024-02-10 19:38 | ED.SEIZURE ---
HPI - Seizure General Chief Complaint: Seizure Stated Complaint: possible seizure Time Seen by Provider: 02/10/24 19:35 Source: patient Mode of arrival: ambulatory Limitations: no limitations History of Present Illness HPI Narrative: 68-year-old male with hypertension, diabetes mellitus, PVD status post right BKA, chronic diarrhea/ IBS, CKD, anemia requiring recurrent transfusions, is brought into the ER by EMS -- transient unresponsiveness. The patient has been sleeping all day. Today the patient was noted to have a blank stare with the eyeballs rolling backwards. no seizure activity was noted. No incontinence was noted. Subsequently the patient was noted to be disoriented. The patient denied any headache or focal neuro deficits. -- Decreased oral intake with 1 episode of vomiting. -- Decreasing urine output over the past few weeks. No fever or chills. Had nausea and 1 episode of vomiting. No abdominal pain. Chronic diarrhea. No chest pain or shortness of breath EMS noted blood sugar to be 112. MD complaint: possible seizure Onset (ago): hour(s) ( 2 hours ago) Trauma: No Seizure History: No Place: home Possible Precipitating Event: none Associated symptoms: denies other symptoms Treatments prior to arrival: none Related Data Home Medications Medication Instructions Recorded Confirmed ferrous sulfate 324 mg (65 mg 324 mg PO DAILY 12/16/23 02/10/24 iron) tablet,delayed release tamsulosin 0.4 mg capsule 0.4 mg PO DAILY 12/16/23 02/10/24 amlodipine 5 mg tablet 5 mg PO DAILY 02/10/24 02/10/24 ergocalciferol (vitamin D2) 1,250 1,250 mcg PO WEEKLY 02/10/24 02/10/24 mcg (50,000 unit) capsule Allergies Allergy/AdvReac Type Severity Reaction Status Date / Time No Known Allergies Allergy Verified 01/13/22 10:05 Review of Systems Review of Systems: All systems reviewed & are unremarkable except as noted in HPI and below Constitutional: Constitutional: Reports as per HPI, Reports no additional constitutional complaints and Reports weakness Eyes: Eyes: Reports as per HPI and Reports no additional eye complaints ENT: Reports system reviewed and no additional complaints, except as documented, Reports as per HPI and Reports nasal congestion Cardiovascular: Cardiovascular: Reports as per HPI and Reports no additional cardiovascular complaints Respiratory: Respiratory: Reports as per HPI and Reports no additional respiratory complaints Gastrointestinal: Gastrointestinal: Reports as per HPI, Reports no additional gastrointestinal complaints, Reports diarrhea and Reports vomiting Genitourinary: Genitourinary: Reports no additional male genitourinary complaints and Reports as per HPI Musculoskeletal: Musculoskeletal: Reports no additional musculoskeletal complaints and Reports as per HPI Integumentary/Breasts: Skin/Breast: Reports system reviewed and no additional complaints, except as docu and Reports as per HPI Neurologic: Reports system reviewed and no additional complaints, except as documented and Reports as per HPI Psychiatric: Psychiatric: Reports no additional psychiatric complaints and Reports as per HPI Endocrine: Endocrine: Reports no additional endocrine complaints and Reports as per HPI Hematologic/Lymphatic: Hematologic/Lymphatic: Reports no additional hematologic/lymphatic complaints and Reports as per HPI Allergic/Immunologic: Allergic/Immunologic: Reports no additional allergic/immunologic complaints and Reports as per HPI PMF Past Medical History Medical History (Updated 02/10/24 @ 22:17 by Dirk Olivares MD) CKD (chronic kidney disease) Diabetes Diarrhea HTN (hypertension) IBS (irritable bowel syndrome) Overweight (BMI 25.0-29.9) Social History Social History Alcohol intake: never Substance use: never Living arrangements: with family Spiritual care concerns: No Exam Narrative: patient is afebrile an
--- NOTE | 2024-02-10 20:12 | ECG_ITS ---
Measurements Intervals [place] Rate: 68 P: 50 [place]: 176 QRS: -13 QRSD: 102 T: 51 QT: 407 QTc: 434 Interpretive Statements SINUS RHYTHM BASELINE ARTIFACT- I, II, III, AVR, AVL NORMAL ECG COMPARED TO ECG 12/15/2020 20:15:05 SINUS RHYTHM NOW PRESENT Electronically Signed On 02-11-2024 6:33:14 CDT by Nilson Jerez D.O.
[2024-02-10 20:26] LABS: Basophils Absolute Auto 0.08 K/mm3 (0.00-0.10); Basophils Percent Auto 0.9 % (0.0-1.0); Eosinophils Absolute Auto 0.25 K/mm3 (0.02-0.50); Eosinophils Percent Auto 2.9 % (1.0-6.0); Hematocrit 33.1 % (37.0-46.0); Hemoglobin 10.6 g/dL (12.4-15.3); Immature Granulocyte Absolute 0.01 K/mm3 (0.00-0.00); Immature Granulocyte Percent A 0.1 % (0.0-0.0); Lymphocytes Absolute Auto 4.65 K/mm3 (1.10-4.50); Lymphocytes Percent Auto 54.2 % (18.0-42.0); Mean Corpuscular Hemoglobin 31.2 pg (27.0-31.0); Mean Corpuscular Volume 97.4 fL (78.0-102.0); Mean Platelet Volume 9.5 fl (8.7-11.0); Monocytes Percent Auto 3.5 % (2.0-11.0); Neutrophils Absolute Auto 3.29 K/mm3 (1.70-7.20); Neutrophils Percent Auto 38.4 % (50.0-70.0); Platelet Count Result 132 K/mm3 (150-420); Red Cell Distribution Width 15.4 % (11.6-14.4); White Blood Count 8.6 K/mm3 (4.8-10.8)
[2024-02-10 20:40] LABS: INR 0.9; Partial Thromboplastin Time 25.4 Sec (23.9-30.70); Prothrombin Time 9.9 Seconds (9.50-12.1)
[2024-02-10 20:46] LABS: Lactic Acid Reflex 0.4 mmol/L (0.4-2.0)
[2024-02-10 20:53] LABS: Alanine Aminotransferase 18 U/L (16-63); Albumin Level 2.4 g/dL (3.4-5.0); Alkaline Phosphatase 43 U/L (46-116); Anion Gap 18 mmol/L (4-12); Aspartate Amino Transferase 13 U/L (15-37); Bilirubin,Total 0.2 mg/dL (0.00-1.00); Blood Urea Nitrogen 129 mg/dL (7-18); Calcium 7.4 mg/dL (8.5-10.1); Carbon Dioxide 10 mmol/L (21-32); Chloride 112 mmol/L (98-108); Estimated CRCL calculation 11 ml/min; Estimated Glomerular Filt Rate 10; Glucose 91 mg/dL (70-99); Magnesium 2.5 mg/dL (1.8-2.4); Osmolality Calculated 331 mOsm/kg (285-295); Potassium 4.6 mmol/L (3.5-5.1); Sodium 140 mmol/L (136-145); Total Protein 5.2 g/dL (6.4-8.2)
[2024-02-10 20:58] LABS: Troponin I 27.7 ng/L (0.00-60.4); Uric Acid 5.7 mg/dL (3.5-7.2)
[2024-02-10 20:59] LABS: Thyroid Stimulating Hormone 3.42 uIU/mL (0.36-3.74)
[2024-02-10 21:03] LABS: Influenza A QL RT-PCR Negative (Negative); Influenza B QL RT-PCR Negative (Negative); RSV RNA, RT-PCR Negative (Negative); SARS-CoV-2 RNA PCR Negative (Negative)
--- NOTE | 2024-02-10 21:50 | PC.NURSE ---
Pt sitting upright in bed, POC for transfer to nephrology discussed c pt. Pt not wanting to be transferred and wanting to go home when ERP Dr Bose discussed transfer tx c pt. Dr Bose stated to pt he would have to sign AMA.
--- NOTE | 2024-02-10 22:10 | PC.NURSE ---
This RN explained to pt and family about signing AMA to nephrology tx. 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 After much explanation to pt and his family, they have decided to go ahead and transfer to a facility that has nephology for further care and tx. Pts. VSS and monitor shows NSR. Will try for transfer per pt and family wishes to [facility] in [place].
[2024-02-10] MEDS: SODIUM CHLORIDE 0.9% IV 500 ML 999 ML IV CONT ×2 (22:18→23:17)
--- NOTE | 2024-02-10 22:54 | PC.NURSE ---
Pt resting, family at bedside. Pt wanting food to eat, states he hasn't had anything all day. Meal tray given.
--- NOTE | 2024-02-10 23:13 | PC.NURSE ---
Pt given food tray and water to drink, pt ate 1005 of meal tray
[2024-02-11 00:01] VITALS: BP 127/59; PULSE 72; RESP 19; O2SAT 99
[2024-02-11] MEDS: SODIUM BICARBONATE 8.4% 50 MEQ/50 ML SYRINGE 100 MEQ IV PUSH (00:15)
[2024-02-11 00:38] VITALS: BP 152/79; PULSE 73; RESP 18; TEMP 36.5; O2SAT 100
--- NOTE | 2024-02-11 00:40 | PC.NURSE ---
Pt assisted by w/c to BR. Pt was able to urinate and had 650ml urine output. Sent to lab per order. Pt assisted back to bed, has no c/o. VSS, monitor shows NSR. Awaiting call back from [facility] for bed placement. Lights dimmed, call mendez at pt side, continuing to monitor.
[2024-02-11 00:44] LABS: Appearance Urine Sl Cloudy (Clear); Bilirubin Urine Negative (Negative); Blood Urine 1+ (Negative); Color Urine Light Yellow (Yellow); Glucose Urine UA Trace (Negative); Ketones Urine Negative (Negative); Leukocyte Esterase Ur Negative LEU/UL (Negative); Nitrate Urine Negative (Negative); Protein Urine 2+ (Negative); Urobilinogen Urine 0.2 mg/dL (0.2-1.0)
[2024-02-11 00:51] LABS: Add Urine Microscopic? YES; Amorphous Sediment Urine Moderate; Bacteria Urine 1+ /hpf; RBC Urine 0-2 /hpf (0-2); Squamous Epithelial Cell Urine Rare /hpf (Few); WBC Urine 0-3 /hpf (0-3)
[2024-02-11 01:48] VITALS: BP 151/77; PULSE 74; RESP 18; TEMP 36.6; O2SAT 99
[2024-02-11 02:16] VITALS: BP 136/72; PULSE 77; RESP 20; O2SAT 99
== END 2024-02-11 02:16 | disposition short-term general hospital (02) ==
PROVIDERS: Emergency Provider Internal Medicine Critical Care Medicine; PCP Family Medicine
DX: E87.20 Acidosis, unspecified (principal); I12.0 Hypertensive chronic kidney disease with stage 5 chronic kidney disease or end stage renal disease; E11.22 Type 2 diabetes mellitus with diabetic chronic kidney disease; N18.5 Chronic kidney disease, stage 5; R41.82 Altered mental status, unspecified; Z20.822 Contact with and (suspected) exposure to COVID-19
CPT/HCPCS: 36415; 70450; 71045; 80053; 81001; 83605; 83735; 84443; 84484; 84550; 85025; 85610; 85730; 87637; 93005; 96360; 96361; 99285; J7040

== ENCOUNTER 2024-03-22 12:18 | Outpatient (CLI) | payer MEDICARE, SELFPAY ==
--- NOTE | ~2024-03-22 | XR_ITS ---
Clinical Indication: Hypertension PA and lateral views of the chest: Comparison: 02/10/2024 Findings: Right-sided central venous line is unchanged. Stable calcified right hilar lymph nodes. The lungs are clear, without evidence of focal consolidation or pleural effusion. Cardiomediastinal esme houette is within normal limits. Bones and soft tissues are unremarkable. Impression: No acute abnormalities. Stable support line. Reviewed, dictated and finalized at location M. Impression: No acute abnormalities. Stable support line.
== END 2024-03-22 12:19 | disposition home or self-care (01) ==
LOC: CHSIMG 12:20
PROVIDERS: PCP Family Medicine; Visit Provider Family Medicine
DX: I10 Essential (primary) hypertension (principal)
CPT/HCPCS: 71046

== ENCOUNTER 2024-03-30 08:58 | Outpatient (CLI) | payer MEDICARE, SELFPAY ==
--- NOTE | ~2024-03-30 | NM_ITS ---
EXAMINATION: NM delma stress w perfusion DATE: 03/30/2024 11:02 INDICATION: Other forms of dyspnea TECHNIQUE: Rest images were obtained following intravenous administration of 10.3 mCi Tc99m tetrofosm in (Myoview). The patient was infused intravenously with Lexiscan (Regadenoson). Then, 33 mCi Tc99m t etrofosmin (Myoview) was administered intravenously, and stress images were obtained. Data was recons tructed into short axis and horizontal and vertical long axis SPECT images. Gated SPECT images were a lso obtained. COMPARISON: None. FINDINGS: There is no definite reversible or fixed perfusion abnormality to suggest ischemia or infar ction. There is normal left ventricular chamber size, wall motion and ejection fraction. Left ventr icular ejection fraction measures >70%. IMPRESSION: 1. Normal myocardial perfusion at rest and during stress. 2. Left ventricular ejection fraction measuring >70%. Reviewed, dictated and finalized at location A.
--- NOTE | 2024-03-30 09:12 | EST_ITS ---
Patient Info Name: Sukhdev Lowery Age: 68 years : 1955 Gender: Male Ht: 67 in Wt: 150 lbs BSA: 1.80 m2 HR: 79 bpm BP: 172 / 79 mmHg Heart Rhythm: Sinus Rhythm Exam Date: 03/30/2024 10:01 AM Exam Location: Echo Lab Patient Status: Outpatient Admit Date: 03/30/2024 Staff Ordering Physician: Nilson Jerez DO Attending Provider: Nilson Jerez DO Exercise Technologist: Arleen Lunsford CT Exercise Physician: Nilson Jerez DO Exam Type: CA stress delma w NM Study Info Indications Z01.810 - Encounter for preprocedural cardiovascular examination A regadenoson stress test was performed. Summary 1. 1. Negative lexiscan stress test for ischemic ST changes by ECG criteria. 2. 2. Baseline hypertension. 3. 3. Nuclear scan to follow and will be reported separately. Please correlate with it. 4. 4. Patient informed of the above results. Protocol: Lexiscan Stress ECG Details Stage: REST Duration (min): 2 min : 22 sec HR (bpm): 78 SBP (mmHg): --- DBP (mmHg): --- Stage: REST Duration (min): 11 min : 54 sec HR (bpm): 79 SBP (mmHg): --- DBP (mmHg): --- Stage: STAGE 1 Duration (min): 0 min : 59 sec HR (bpm): 83 SBP (mmHg): 169 DBP (mmHg): 75 Stage: RECOVERY Duration (min): 1 min : 0 sec HR (bpm): 84 SBP (mmHg): 169 DBP (mmHg): 75 Stage: RECOVERY Duration (min): 2 min : 0 sec HR (bpm): 83 SBP (mmHg): 169 DBP (mmHg): 75 Stage: RECOVERY Duration (min): 3 min : 0 sec HR (bpm): 81 SBP (mmHg): 169 DBP (mmHg): 75 Stage: RECOVERY Duration (min): 3 min : 13 sec HR (bpm): 80 SBP (mmHg): 120 DBP (mmHg): 45 Rest HR: 79 bpm Peak HR: 84 bpm Rest Sys BP: 169 mmHg Peak Sys BP: 120 mmHg Max Pred HR: 154 bpm % Max Pred HR: 55 % Target HR: 131 bpm Max RPP: 10,080 bpm*mmHg Termination Reason: Completed protocol Cardiac Symptoms: Shortness of breath Total Time: 1 min : 0 sec Rest Gonzales BP: 75 mmHg Peak Gonzales BP: 45 mmHg Total Dose: 0.4 mg Resting ECG Sinus rhythm, cannot r/o septal infarct, age indeterminate. Stress ECG No ST changes. Arrhythmias None. Report Signatures
== END 2024-03-30 08:59 | disposition home or self-care (01) ==
PROVIDERS: PCP Family Medicine; Visit Provider Internal Medicine Cardiovascular Disease
DX: R06.09 Other forms of dyspnea (principal)
CPT/HCPCS: 78452; 93017; A9502; J2785

== ENCOUNTER 2024-04-26 13:57 | Outpatient (CLI) | payer MEDICARE, SELFPAY ==
--- NOTE | 2024-04-26 14:09 | ECHO_ITS ---
Patient Info Name: Sukhdev Lowery Age: 68 years : 1955 Gender: Male Ht: 67 in Wt: 155 lbs BSA: 1.83 m2 HR: 79 bpm BP: 128 / 67 mmHg Technical Quality: Fair Exam Date: 04/26/2024 2:18 PM Exam Location: Echo Lab Patient Status: Outpatient Admit Date: 04/26/2024 Staff Ordering Physician: Nilson Jerez DO Industrial Technology Education Teacher: Sixto Modi RDCS Attending Provider: Nilson Jerez DO Referring Physician: Solitario IRWIN; Exam Type: CA echo doppler color flow Study Info Indications R06.09 - Other forms of dyspnea Complete two-dimensional, color flow and Doppler transthoracic echocardiogram is performed. Summary 1. Complete two-dimensional, color flow and Doppler transthoracic echocardiogram is performed. 2. Left ventricular chamber dimension is normal. 3. Left ventricular systolic function is normal, estimated at 65-70%. 4. There is mild concentric increased left ventricular wall thickness. 5. The left ventricular diastolic function is grade I diastolic dysfunction. 6. E/e' 20 is elevated. 7. Left atrial chamber dimension is mildly enlarged. 8. There is moderate aortic valve sclerosis. 9. The mitral valve has mildly calcified annulus. 10. There is trace mitral valve regurgitation. 11. There is mild tricuspid valve regurgitation. 12. No pulmonary hypertension, estimated pulmonary arterial systolic pressure is 32 mmHg. 13. There is trivial pericardial effusion. Left Ventricle E/e' 20 is elevated. Left ventricular chamber dimension is normal. Left ventricular systolic function is normal, estimated at 65-70%. There is mild concentric increased left ventricular wall thickness. The left ventricular diastolic function is grade I diastolic dysfunction. Right Ventricle Right ventricular systolic function is normal and with normal TAPSE 2.9 cm. Right ventricular chamber dimension is normal. Left Atria Left atrial chamber dimension is mildly enlarged. Right Atria Right atrial chamber dimension is normal. Aortic Valve The aortic valve is trileaflet. There is moderate aortic valve sclerosis. There is no aortic valve stenosis. There is no aortic valve regurgitation. Pulmonic Valve There is no pulmonic regurgitation. Mitral Valve The mitral valve has mildly calcified annulus. There is no mitral valve stenosis. There is trace mitral valve regurgitation. Tricuspid Valve There is mild tricuspid valve regurgitation. No pulmonary hypertension, estimated pulmonary arterial systolic pressure is 32 mmHg. Pericardium/Pleural There is trivial pericardial effusion. Inferior Vena Cava Normal inferior vena cava with >50% collapse upon inspiration consistent with normal right atrial pressure, 5 mmHg. Aorta The aortic root size at the sinus of Valsalva is normal. Left Ventricular Outflow Tract Name Value Normal LVOT 2D LVOT Diameter 2.0 cm LVOT Doppler LVOT Peak Gradient 6 mmHg LVOT Mean Gradient 2 mmHg LVOT VTI 20 cm LVOT VTI/AV VTI Ratio 0.6 LVOT Stroke Volume 63 ml LVOT CO 4.8 l/min LVOT CI
== END 2024-04-26 13:58 | disposition home or self-care (01) ==
PROVIDERS: PCP Family Medicine; Visit Provider Internal Medicine Cardiovascular Disease
DX: R06.09 Other forms of dyspnea (principal); I36.1 Nonrheumatic tricuspid (valve) insufficiency
CPT/HCPCS: 93306

== ENCOUNTER 2024-05-14 15:50 | Emergency (ER) | payer MEDICARE, SELFPAY ==
[2024-05-14] VITALS (15 sets, daily range): BP systolic 105–139; BP diastolic 54–75; PULSE 72–101; RESP 16–22; TEMP 37–37.9; O2SAT 87–98
--- NOTE | ~2024-05-14 | XR_ITS ---
EXAMINATION: XR chest 1V portable DATE: 05/14/2024 16:38 INDICATION: Shortness of breath. TECHNIQUE: A single frontal view of the chest was obtained. COMPARISON: Chest 2 views 03/22/2024 FINDINGS: There is a diffuse interstitial pattern in the lungs. There are airspace opacities in the p erihilar regions. There is a small right pleural effusion. No pneumothorax. The heart size is normal. Calcified right hilar lymph nodes are consistent with old granulomatous disease. A right internal ju gular central venous catheter is seen with tip in the right atrium. IMPRESSION: 1. Diffuse lung disease, likely moderate pulmonary edema. 2. Small right pleural effusion. Reviewed, dictated and finalized at location E.
--- NOTE | 2024-05-14 16:12 | ED.GENADULT ---
HPI - General Adult General Chief complaint: Nausea/Vomiting/Diarrhea Stated complaint: nausea and headache Time Seen by Provider: 05/14/24 16:05 History of Present Illness HPI narrative: 68-year-old male patient with known history of diabetes mellitus and currently on hemodialysis because of renal insufficiency is brought into the ER by the family with complaints of patient feeling fatigued and nausea and also generalized weakness. No vomiting is reported by the patient or the family. The patient states that he is a little short of breath as well. denies any chest pain. He also complains about sinus congestion which she has had off and on for a long time. He does complain about feeling cold but has denied any chills. He is not aware of any fever. Patient does have dry cough. He is complaining mostly about feeling sleepy. Per daughter the patient did not tolerate his dialysis fully yesterday and they had to give some saline to keep his blood pressure up. Patient also has right below-knee amputation with a prosthesis. Related Data Home Medications Medication Instructions Recorded Confirmed ferrous sulfate 324 mg (65 mg 324 mg PO DAILY 12/16/23 05/14/24 iron) tablet,delayed release tamsulosin 0.4 mg capsule 0.4 mg PO DAILY 12/16/23 05/14/24 amlodipine 5 mg tablet 10 mg PO DAILY 02/10/24 05/14/24 ergocalciferol (vitamin D2) 1,250 1,250 mcg PO WEEKLY 02/10/24 05/14/24 mcg (50,000 unit) capsule aspirin 81 mg tablet 81 mg PO DAILY 05/14/24 05/14/24 Allergies Allergy/AdvReac Type Severity Reaction Status Date / Time No Known Allergies Allergy Verified 05/14/24 16:01 Review of Systems Review of Systems: All systems reviewed & are unremarkable except as noted in HPI and below PMFSH Past Medical History Medical History CKD (chronic kidney disease) Diabetes Diarrhea HTN (hypertension) IBS (irritable bowel syndrome) Overweight (BMI 25.0-29.9) Social History Social History Smoking status: Never smoker Alcohol intake: never Substance use: never Living arrangements: with family Spiritual care concerns: No Exam Narrative: 68-year-old male patient appears chronically ill and older than his stated age. He is not in any acute distress. Vital signs are noted to be positive for a temperature of 37.9? with a heart rate of 101 beats per minute and 22 respirations per minute. Blood pressure is 139/75 and O2 sat on room air is 87-89%. HEENT: normocephalic. Pupils are midsize equal and reactive to light. Patient does have conjunctival pallor noted. No sinus tenderness. Ear nose throat appeared to be normal. Oral mucous membranes are pink and moist. Neck is supple and there is no JVD. Chest wall is nontender. Patient has a Vas-Cath in the right upper chest area. Breath sounds are audible bilaterally and is associated with some fine rales throughout the lung zendejas. No retractions are noted. Heart tones are regular and rapid. Abdomen is soft and nontender. Extremities are atraumatic and patient has AV fistula in the left upper arm near the elbow with good bruit on auscultation. Right lower extremity is prosthetic. Left lower extremity shows no evidence of pedal edema. Skin is warm and dry and skin turgor is normal. Neurologic exam is grossly normal. Patient has a very flat affect and appears somewhat depressed. He does however have a good eye contact. He engages in conversation without any difficulty. Course Course Emergency Course: patient's ER course has been benign. He has remained stable. His oxygen saturation did improve with supplemental oxygen. Patient and his family are all aware of the workup and the transfer to [facility]. Consultations Consultation #1: Dr Parada hydrometer tester Date: 05/14/24 Time: 19:03 Consultation #2: Dr Barry, Hospitalist Date:
--- NOTE | 2024-05-14 16:24 | ECG_ITS ---
Test Date: 2024-05-14 16:52:08 Measurements Intervals E[place] Rate: 96 P: 53 WI: 149 QRS: -28 QRSD: 106 T: 78 QT: 343 QTc: 434 Interpretive Statements SINUS RHYTHM POSSIBLE LEFT ATRIAL ENLARGEMENT CANNOT R/O SEPTAL INFARCT, AGE INDETERMINATE ABNORMAL ECG No previous ECG available for comparison Electronically Signed On 05-16-2024 06:11:16 CDT by Nilson Jerez D.O.
[2024-05-14] MEDS: ACETAMINOPHEN 500 MG TABLET 1000 MG PO (16:51)
[2024-05-14 17:30] LABS: Bilirubin Urine 1+ (Negative); Blood Urine 2+ (Negative); Color Urine Brown (Yellow); Glucose Urine UA 1+ (Negative); Ketones Urine Negative (Negative); Leukocyte Esterase Ur Trace LEU/UL (Negative); Nitrate Urine Negative (Negative); Protein Urine 3+ (Negative); Specific Grav Ur 1.025 (1.010-1.020); Urobilinogen Urine 0.2 mg/dL (0.2-1.0)
[2024-05-14 17:47] LABS: Add Urine Microscopic? YES; Appearance Urine Cloudy (Clear); Squamous Epithelial Cell Urine Few /hpf (Few)
[2024-05-14 17:48] LABS: Amorphous Sediment Urine Moderate; Bacteria Urine 4+ /hpf; SARS-CoV-2 RNA PCR Negative (Negative)
[2024-05-14 17:50] LABS: Influenza A QL RT-PCR Negative (Negative); Influenza B QL RT-PCR Negative (Negative); RSV RNA, RT-PCR Negative (Negative)
[2024-05-14] MEDS: FUROSEMIDE INJ 40 MG/4 ML VIAL IV PUSH (17:55)
[2024-05-14 18:10] LABS: Basophils Absolute Auto 0.04 K/mm3 (0.00-0.10); Basophils Percent Auto 0.6 % (0.0-1.0); Eosinophils Absolute Auto 0.05 K/mm3 (0.02-0.50); Eosinophils Percent Auto 0.7 % (1.0-6.0); Hematocrit 21.9 % (37.0-46.0); Hemoglobin 7.6 g/dL (12.4-15.3); Immature Granulocyte Absolute 0.03 K/mm3 (0.00-0.00); Immature Granulocyte Percent A 0.4 % (0.0-0.0); Lymphocytes Percent Auto 20.6 % (18.0-42.0); Mean Corpuscular HGB Conc 34.7 g/dL (32-36); Mean Corpuscular Hemoglobin 31.8 pg (27.0-31.0); Mean Corpuscular Volume 91.6 fL (78.0-102.0); Mean Platelet Volume 9.5 fl (8.7-11.0); Monocytes Absolute Auto 0.63 K/mm3 (0.10-0.90); Monocytes Percent Auto 8.7 % (2.0-11.0); Neutrophils Absolute Auto 5.02 K/mm3 (1.70-7.20); Platelet Count Result 110 K/mm3 (150-420); Red Blood Count 2.39 M/mm3 (4.70-6.10); Red Cell Distribution Width 13.5 % (11.6-14.4); White Blood Count 7.3 K/mm3 (4.8-10.8)
[2024-05-14 18:27] LABS: Lactic Acid Reflex 0.7 mmol/L (0.4-2.0)
[2024-05-14 18:37] LABS: Alanine Aminotransferase 6 U/L (16-63); Albumin Level 2.5 g/dL (3.4-5.0); Alkaline Phosphatase 65 U/L (46-116); Anion Gap 10 mmol/L (4-12); Aspartate Amino Transferase < 10 U/L (15-37); Bilirubin,Total 0.3 mg/dL (0.00-1.00); Blood Urea Nitrogen 67 mg/dL (7-18); CRP 9.5 mg/dL (0.0-0.9); Calcium 7.8 mg/dL (8.5-10.1); Carbon Dioxide 28 mmol/L (21-32); Chloride 98 mmol/L (98-108); Creatine Kinase 40 U/L (39-308); Estimated CRCL calculation 13 ml/min; Estimated Glomerular Filt Rate 12; Glucose 211 mg/dL (70-99); Osmolality Calculated 307 mOsm/kg (285-295); Potassium 3.2 mmol/L (3.5-5.1); Sodium 136 mmol/L (136-145); Total Protein 5.9 g/dL (6.4-8.2)
[2024-05-14 18:39] LABS: Creatine Kinase MB < 0.50 ng/mL (0.00-5.00)
[2024-05-14 18:40] LABS: Troponin I 330.7 ng/L (0.00-60.4)
[2024-05-14 19:34] LABS: NT Pro B Type Natriuretic Pept > 35000 pg/mL (0-125)
--- NOTE | 2024-05-14 19:46 | PC.NURSE ---
Pt sitting up bedside watching TV and eating sandwich given. Updated family on POC for transfer to [place]. Family phone # received to call pts daughter when he leaves for [place].
--- NOTE | 2024-05-14 20:13 | PC.NURSE ---
Pt resting and watching TV, VSS, paperword signed for transfer, awaiting call back from [place] for bed assignement.
--- NOTE | 2024-05-14 20:41 | PC.NURSE ---
Call back from Anitha hinton [place]. Pt will go to Rm [id number]
--- NOTE | 2024-05-14 21:19 | PC.NURSE ---
Pt ambulated to BR steadily w/ SBA and nurse to BR down hallway, Pt had small BM and ambulated back to bed, Report given to Anali hinton [place]. Call placed for transfer w/ [facility].
--- NOTE | 2024-05-17 12:29 | PC.NURSE ---
FINAL URINE CULTURE RESULTS: NO GROWTH
--- NOTE | 2024-05-21 13:27 | PC.NURSE ---
Final blood culture results, no growth after 5 days, no further action or treatment needed.
== END 2024-05-14 21:32 | disposition short-term general hospital (02) ==
PROVIDERS: Emergency Provider Emergency Medicine; PCP Family Medicine
DX: I12.0 Hypertensive chronic kidney disease with stage 5 chronic kidney disease or end stage renal disease (principal); N18.6 End stage renal disease; D63.1 Anemia in chronic kidney disease; E11.22 Type 2 diabetes mellitus with diabetic chronic kidney disease; J81.1 Chronic pulmonary edema; Z99.2 Dependence on renal dialysis; Z79.82 Long term (current) use of aspirin; Z79.899 Other long term (current) drug therapy; Z20.822 Contact with and (suspected) exposure to COVID-19
CPT/HCPCS: 36415; 71045; 80053; 81001; 82550; 82553; 83605; 83880; 84484; 85025; 86140; 87040; 87086; 87637; 93005; 96374; 99285; J1940

== ENCOUNTER 2024-05-14 23:20 | Inpatient (IN) | payer MEDICARE, MEDICAID, SELFPAY ==
--- NOTE | ~2024-05-14 | XR_ITS ---
EXAMINATION: XR chest 1V portable DATE: 05/16/2024 15:54 INDICATION: Congestive heart failure. TECHNIQUE: A single frontal view of the chest was obtained. COMPARISON: Chest single view 05/14/2024 FINDINGS: There are airspace opacities in the perihilar regions. No pleural effusion or pneumothorax. The heart size is normal. Calcified right hilar lymph nodes are consistent with old granulomatous di sease. A right internal jugular central venous catheter is seen with tip in the right atrium. IMPRESSION: 1. Airspace opacities in the perihilar regions with interval improvement, consistent with mild pulmon mally edema. Reviewed, dictated and finalized at location A. IMPRESSION: 1. Airspace opacities in the perihilar regions with interval improvement, consi stent with mild pulmonary edema.
[2024-05-14 22:10] VITALS: BP 127/62; PULSE 89; RESP 18; TEMP 36.3; O2SAT 95
[2024-05-14 22:24] VITALS: PULSE 87
[2024-05-14 22:38] VITALS: PULSE 89; RESP 18; O2SAT 95
[2024-05-14 22:40] VITALS: BMI 24.8
--- NOTE | 2024-05-14 23:18 | PM.IMHP ---
H&P: HPI History of Present Illness Date/Time: 05/14/24 23:18 Chief Complaint: sob Narrative: THIS IS A 68-YEAR-OLD MALE WITH PAST MEDICAL HISTORY SIGNIFICANT FOR END-STAGE RENAL DISEASE ON HEMODIALYSIS, HYPERTENSION, IRRITABLE BOWEL SYNDROME. PATIENT PRESENTS A DIRECT ADMISSION FROM A STONE DONE EMERGENCY ROOM DUE TO PULMONARY EDEMA, EARLIER AT HOME PATIENT WAS FOUND TO HAVE A LOW BLOOD PRESSURE AND LOW OXYGEN SATURATION ON HOME EQUIPMENT. PATIENT HAS HAD DIALYSIS DONE HOWEVER TREATMENT WAS CUT SHORT AFTER PATIENT HAD EPISODE OF HYPOTENSION. PATIENT STATES THAT HE IS NOT FEELING WELL HOWEVER DENIES ANY COMPLAINT STATES THAT IS AT THE HOSPITAL BECAUSE OF HIS FAMILY MEMBERS MADE HIM COME TO THE HOSPITAL. DENIES ANY SPUTUM PRODUCTION, DENIES FEVERS RIGORS OR CHILLS HOWEVER PATIENT WAS FOUND TO HAVE A TEMPERATURE OF 100? F .PRELIMINARY WORKUP WAS SIGNIFICANT FOR A CHEST X-RAY SHOWED DIFFUSE LUNG DISEASE WITH MODERATE PULMONARY EDEMA. PATIENT IS BEEN ADMITTED FOR FURTHER EVALUATION MANAGEMENT AND TREATMENT. EXAMINATION: XR chest 1V portable DATE: 05/14/2024 16:38 INDICATION: Shortness of breath. TECHNIQUE: A single frontal view of the chest was obtained. COMPARISON: Chest 2 views 03/22/2024 FINDINGS: There is a diffuse interstitial pattern in the lungs. There are airspace opacities in the perihilar regions. There is a small right pleural effusion. No pneumothorax. The heart size is normal. Calcified right hilar lymph nodes are consistent with old granulomatous disease. A right internal jugular central venous catheter is seen with tip in the right atrium. IMPRESSION: 1. Diffuse lung disease, likely moderate pulmonary edema. 2. Small right pleural effusion. Review of Systems Review of Systems: COUGH, OBVIOUSLY AM HERE AM NOT DOING WELL. [facility] Past Medical History Medical History CKD (chronic kidney disease) Diabetes Diarrhea HTN (hypertension) IBS (irritable bowel syndrome) Overweight (BMI 25.0-29.9) Social History Social History Smoking status: Never smoker Second hand tobacco smoke exposure: No Alcohol intake: never Substance use: never Substance use type: does not use Do You Feel Safe in your Home?: Yes Lack of Transportation: No Lack of Food: Never True Current Housing: I Have Housing Concerned About Future Housing: No Difficulty Paying Gas/Electric Bills: No Difficulty Paying for Meds: No Currently Unemployed: No Education: High School Diploma/GED Difficulty w/ Childcare or Family Care: No Living arrangements: with family Spiritual care concerns: No Meds Home Medications and Allergies Home Medications Medication Instructions Recorded Confirmed Type ferrous sulfate 324 mg (65 mg 324 mg PO DAILY 12/16/23 05/14/24 History iron) tablet,delayed release tamsulosin 0.4 mg capsule 0.4 mg PO DAILY 12/16/23 05/14/24 History amlodipine 5 mg tablet 10 mg PO DAILY 02/10/24 05/14/24 History ergocalciferol (vitamin D2) 1,250 1,250 mcg PO WEEKLY 02/10/24 05/14/24 History mcg (50,000 unit) capsule aspirin 81 mg tablet 81 mg PO DAILY 05/14/24 05/14/24 History Allergies Allergy/AdvReac Type Severity Reaction Status Date / Time No Known Allergies Allergy Verified 05/14/24 22:49 Vital Signs Vital Signs - 24 hr 05/14/24 22:40 Temperature 97.3 F L Pulse Rate 89 Respiratory Rate 18 Blood Pressure 127/62 Pulse Oximetry 95 Exam Narrative: laying in bed Const: General: cooperative, comfortable, no acute distress, well developed, alert, awake, ill appearing chronically and average body habitus Nutritional Appearance: average body habitus Orientation/consciousness: patient oriented x3 HENMT: Head: normal to inspection, normocephalic and atraumatic Ears: hearing grossly normal bilaterally Face/Nose/Sinus: normal facial exam Face and sinus: n
--- NOTE | 2024-05-14 23:28 | ADMGEN ---
This patient, Sukhdev Lowery III, was admitted to IMU Room 214-01 on 05/14/24 at 2208 as a direct admit from [facility]. Patient/family oriented to hospital policies and general routines including ID bracelet, bed and alarms, visiting hours, pain management, procedures, bathroom and other care routines, personal items, smoking policy, room service/diet, and visiting hours. Information on how to activate the Rapid Response Team has been discussed. Patient/Family are encouraged to report perceived risks to care and to ask questions if they do not understand what they are told or what they should do.
--- NOTE | 2024-05-14 23:43 | PC.NURSE ---
Spoke with Dr Reyes; clarified that patient is IMU status.
[2024-05-15] VITALS (37 sets, daily range): BP systolic 118–141; BP diastolic 54–70; PULSE 70–95; RESP 16–18; TEMP 0–37.2; O2SAT 84–100
[2024-05-15 01:34] LABS: MRSA (PCR) NOT DETECTED (NOT DETECTE)
[2024-05-15 04:36] LABS: Basophils Absolute Auto 0.1 K/mm3 (0.0-0.1); Basophils Percent Auto 0.8 % (0.2-1.2); Eosinophils Absolute Auto 0.2 K/mm3 (0-0.3); Eosinophils Percent Auto 2.1 % (0-4.4); Hematocrit 22.6 % (42.0-52.0); Hemoglobin 7.3 g/dL (14.0-18.0); Immature Granulocyte Absolute 0.03 K/mm3 (0.00-0.031); Immature Granulocyte Percent A 0.4 % (0-0.5); Lymphocytes Absolute Auto 1.81 K/mm3 (0.9-3.2); Lymphocytes Percent Auto 22.7 % (18.3-44.2); Mean Corpuscular HGB Conc 32.3 g/dl (32-36); Mean Corpuscular Hemoglobin 30.5 pg (26-34); Mean Corpuscular Volume 94.6 fl (80-100); Mean Platelet Volume 9.7 fl (7.4-10.4); Monocytes Absolute Auto 0.6 K/mm3 (0.1-0.6); Monocytes Percent Auto 7.4 % (2.6-8.5); Neutrophils Absolute Auto 5.3 K/mm3 (1.3-6.7); Neutrophils Percent Auto 66.6 % (45.5-73.1); Platelet Count Result 108 k/mm3 (150-375); Red Blood Count 2.39 M/mm3 (4.6-6.20); Red Cell Distribution Width 13.4 % (11.5-14.5)
[2024-05-15 04:48] LABS: Alanine Aminotransferase 12 U/L (6-50); Albumin Level 3.3 g/dL (3.5-5.1); Alkaline Phosphatase 73 U/L (38-126); Anion Gap 8 mmol/L (4-12); Aspartate Amino Transferase 18 U/L (17-59); Bilirubin,Total 0.5 mg/dL (0.2-1.3); Blood Urea Nitrogen 77 mg/dL (9-20); Calcium 8.2 mg/dL (8.4-10.2); Carbon Dioxide 28 mmol/L (22-30); Chloride 100 mmol/L (98-107); Estimated CRCL calculation 11 ml/min; Estimated Glomerular Filt Rate 10; Glucose 201 mg/dL (65-110); Magnesium 2.3 mg/dL (1.6-2.3); Phosphorus 3.5 mg/dL (2.5-4.5); Potassium 3.2 mmol/L (3.4-5.0); Sodium 136 mmol/L (137-145)
[2024-05-15 05:51] LABS: Hepatitis B Surface Antigen Negative (Negative)
[2024-05-15 05:54] LABS: Folic Acid 12.5 ng/mL (2.76->20)
[2024-05-15 06:07] LABS: Hepatitis B Surface Anti Res Positive
--- NOTE | 2024-05-15 07:10 | P.PNIM_ITS ---
Progress Note: A&P Assessment and Plan (1) Acute respiratory failure with hypoxia: Code(s): J96.01 - Acute respiratory failure with hypoxia Status: Acute Assessment and Plan: 05/15/24: * Initially meeting SIRS criteria with HR of 101 and RR 22. Temp 100.3, Lactate 0.7, SPO2 88% on room air, patient started on 2L NC * likely due to fluid overload, patient is ESRD on HD however he had an interrupted HD session Thursday due to hypotension * Chest x-ray shown diffuse lung disease, moderate pulmonary edema, small right pleural effusion. * Plan for HD today * Continue to wean O2 to keep sat greater than 92% (2) Elevated troponin: Code(s): R79.89 - Other specified abnormal findings of blood chemistry Status: Acute Assessment and Plan: 05/15/24: * Initial troponin 330.7, CK-MB less than 0.5 * Possible demand ischemia * Repeat troponin I was 0.823 * EKG shown sinus rhythm with borderline left axis deviation, rate 83, QTC 444 * Echo reviewed from 04/26/2024 which showed normal LV systolic function with an estimated EF of 65-70%, grade 1 diastolic dysfunction, moderate aortic valve sclerosis * Patient had nuclear med Lexiscan stress test on 03/30/2024 which showed normal myocardial perfusion at rest and during stress * Cardiology consulted (3) ESRD on hemodialysis: Code(s): N18.6 - End stage renal disease; Z99.2 - Dependence on renal dialysis Status: Acute Assessment and Plan: 05/15/24: * ESRD on HD, last session was Thursday which was interrupted due to hypotension and had to receive IVF. * Nephrology consult * Patient had dialysis today with 4 L removal * Plan for dialysis again tomorrow which is his regularly scheduled HD session * Patient has dialysis Thursday and is a patient of Dr. Christian damon * Anuric * Continue tamsulosin * Initial BUN 67, creatinine 5.0 * Today BUN 77, creatinine 5.9, EGFR 10, potassium 3.2 (4) Abnormal finding on urinalysis: Code(s): R82.90 - Unspecified abnormal findings in urine Status: Acute Assessment and Plan: 05/15/24: * UA showing when urine specific gravity of 1.025, 3+ urine protein, 1+ urine glucose, 2+ urine blood, 1+ urine bili, trace leukocyte, urine WBC 10-15, 4+ bacteria. * Blood and urine cultures were obtained and are pending (5) Anemia in ESRD (end-stage renal disease): Code(s): N18.6 - End stage renal disease; D63.1 - Anemia in chronic kidney disease Status: Acute Assessment and Plan: 05/15/24: * likely secondary to ESRD, anemia of chronic disease * Nephrology following * Hgb 7.3, Hct 22.6 * Continue ferrous sulfate * Vitamin B12 501, folate 12.5 ferritin 345 (6) HTN (hypertension): Code(s): I10 - Essential (primary) hypertension Status: Chronic Assessment and Plan: 05/15/24: * Blood pressure ranging 109/62 to 127/62 * Amlodipine on hold due to issues with hypotension (7) Diabetes: Code(s): E11.9 - Type 2 diabetes mellitus without complications Status: Acute Assessment and Plan: 05/15/24: * Blood sugars ranging 201-211 * Last hemoglobin A1c 4.8 on 03/27/22, will repeat today * currently on a renal dialysis diet * Accu-Cheks AC and HS * Low-dose sliding scale insulin ordered * Hypoglycemic protocol in place Time Spent With Patient Time with patient: Greater than 35 minutes Subjective Date/time seen: 05/15/24 07:10 Interval history: This is a 68 year old male who presented to the hospital on 05/14/24 with complaints of fatigue, shortness of breath, sinu
--- NOTE | 2024-05-15 07:10 | PM.IMPN ---
Progress Note: A&P Assessment and Plan (1) Acute respiratory failure with hypoxia: Code(s): J96.01 - Acute respiratory failure with hypoxia Status: Acute Assessment and Plan: 05/15/24: Initially meeting SIRS criteria with HR of 101 and RR 22. Temp 100.3, Lactate 0.7, SPO2 88% on room air, patient started on 2L NC likely due to fluid overload, patient is ESRD on HD however he had an interrupted HD session Thursday due to hypotension Chest x-ray shown diffuse lung disease, moderate pulmonary edema, small right pleural effusion. Plan for HD today Continue to wean O2 to keep sat greater than 92% (2) Elevated troponin: Code(s): R79.89 - Other specified abnormal findings of blood chemistry Status: Acute Assessment and Plan: 05/15/24: Initial troponin 330.7, CK-MB less than 0.5 Possible demand ischemia Repeat troponin I was 0.823 EKG shown sinus rhythm with borderline left axis deviation, rate 83, QTC 444 Echo reviewed from 04/26/2024 which showed normal LV systolic function with an estimated EF of 65-70%, grade 1 diastolic dysfunction, moderate aortic valve sclerosis Patient had nuclear med Lexiscan stress test on 03/30/2024 which showed normal myocardial perfusion at rest and during stress Cardiology consulted (3) ESRD on hemodialysis: Code(s): N18.6 - End stage renal disease; Z99.2 - Dependence on renal dialysis Status: Acute Assessment and Plan: 05/15/24: ESRD on HD, last session was Thursday which was interrupted due to hypotension and had to receive IVF. Nephrology consult Patient had dialysis today with 4 L removal Plan for dialysis again tomorrow which is his regularly scheduled HD session Patient has dialysis Thursday and is a patient of Dr. Ivis Buck Continue tamsulosin Initial BUN 67, creatinine 5.0 Today BUN 77, creatinine 5.9, EGFR 10, potassium 3.2 (4) Abnormal finding on urinalysis: Code(s): R82.90 - Unspecified abnormal findings in urine Status: Acute Assessment and Plan: 05/15/24: UA showing when urine specific gravity of 1.025, 3+ urine protein, 1+ urine glucose, 2+ urine blood, 1+ urine bili, trace leukocyte, urine WBC 10-15, 4+ bacteria. Blood and urine cultures were obtained and are pending (5) Anemia in ESRD (end-stage renal disease): Code(s): N18.6 - End stage renal disease; D63.1 - Anemia in chronic kidney disease Status: Acute Assessment and Plan: 05/15/24: likely secondary to ESRD, anemia of chronic disease Nephrology following Hgb 7.3, Hct 22.6 Continue ferrous sulfate Vitamin B12 501, folate 12.5 ferritin 345 (6) HTN (hypertension): Code(s): I10 - Essential (primary) hypertension Status: Chronic Assessment and Plan: 05/15/24: Blood pressure ranging 109/62 to 127/62 Amlodipine on hold due to issues with hypotension (7) Diabetes: Code(s): E11.9 - Type 2 diabetes mellitus without complications Status: Acute Assessment and Plan: 05/15/24: Blood sugars ranging 201-211 Last hemoglobin A1c 4.8 on 03/27/22, will repeat today currently on a renal dialysis diet Accu-Cheks AC and HS Low-dose sliding scale insulin ordered Hypoglycemic protocol in place Time Spent With Patient Time with patient: Greater than 35 minutes Subjective Date/time seen: 05/15/24 07:10 Interval history: This is a 68 year old male who presented to the hospital on 05/14/24 with complaints of fatigue, shortness of breath, sinus congestion nausea, and headache. Patient is on hemodialysis and most recent HD session was on Thursday however he did not tolerate it very well and they had to give him IVF to keep his blood pressure up. Work up in the hospital includes a chest x-ray that shown diffuse lung disease, moderate pulmonary edema and small right pleural effusion. Initial labs revealed hemoglobin of 7.6, platelet count 110, potassium 3.2, BUN 67, creatinine 5.0, EGF
--- NOTE | 2024-05-15 08:25 | ECG_ITS ---
Test Date: 2024-05-15 08:58:37 Measurements Intervals [place] Rate: 83 P: 65 TX: 155 QRS: -24 QRSD: 110 T: 63 QT: 377 QTc: 444 Interpretive Statements SINUS RHYTHM POSSIBLE LEFT ATRIAL ENLARGEMENT [-0.1mV P WAVE IN V1/V2] BORDERLINE LEFT AXIS DEVIATION [QRS AXIS < -20] Compared to ECG 05/14/2024 16:52:08 No significant changes Electronically Signed On 05-15-2024 16:16:06 CDT by Tomasz Limon M.D.
[2024-05-15 08:57] LABS: Iron < 10 ug/dL (49-181)
[2024-05-15 09:08] LABS: Percent Iron Saturation < 5 % (20-50)
--- NOTE | 2024-05-15 09:10 | PC.NURSE ---
pt taken up to dialysis, no s/sx of distress, pt c/o lack of sleep last night and general feeling of tiredness today
[2024-05-15 09:11] LABS: Troponin I 0.823 ng/mL (0.000-0.034)
[2024-05-15] MEDS: EPOETIN ALFA 20,000 UNITS/ML VIAL 20000 UNITS IV PUSH (09:59)
--- NOTE | 2024-05-15 12:20 | PM.CNNEP ---
Assessment and Plan Assessment and plan (1) End stage renal disease: Code(s): N18.6 - End stage renal disease Status: Chronic Assessment and Plan: currently in-training for home hemodialysis last treatment was on 05/13/24 that treatment was complicated by hypotension leading to diminished/decreased fluid removal further complicated by administration of IVFs/normal saline due to low BP DUF (dry ltrafiltration) for further fluid removal today plan HD tomorrow (2) Acute respiratory failure with hypoxia: Code(s): J96.01 - Acute respiratory failure with hypoxia Status: Acute Assessment and Plan: noted hypoxia on presentation to OSH emergency room presumed to be secondary to volume overload/pulmonary edema CXR with diffuse lung disease + moderated pulmonary edema and small right pleural effusion push fluid removal as tolerated by hemodynamics wean off oxygen as tolerated (3) Elevated troponin: Code(s): R79.89 - Other specified abnormal findings of blood chemistry Status: Acute Assessment and Plan: as noted in ER no EKG changes consistent with ischemia related to ESRD status (?) Cardiology consulted (4) Anemia: Code(s): D64.9 - Anemia, unspecified Status: Acute Assessment and Plan: low H/H noted on admission Epogen with HD iron studies demonstrate iron deficiency as well dose with IV iron with dialysis follow trend of H/H PRBC transfusion per protocol (5) Urinary tract infection: Code(s): N39.0 - Urinary tract infection, site not specified Status: Acute Assessment and Plan: admission UA highly suggestive follow culture data antibiotics on hold (6) HTN (hypertension): Code(s): I10 - Essential (primary) hypertension Status: Chronic Assessment and Plan: reasonable control at this time holding amlodipine given issues with hypotension with dialysis follow trend of hemodynamics (7) Diabetes: Code(s): E11.9 - Type 2 diabetes mellitus without complications Status: Acute Assessment and Plan: presumed etiology of ESRD status follow accu-checks glycemic control per hospitalists I will continue follow the patient with you while remains hospitalized and make further recommendations as deemed necessary. Thank you for allowing me to participate in the care of this patient. History of Present Illness Reason for Consult Consult date: 05/15/24 Reason for consult: end stage renal disease Chief Complaint Chief complaint: ESRD on HD, hypotension History of Present Illness Narrative: The patient is a 68-year-old male with a past medical history as outlined below who was directly admitted to [facility] from [facility] emergency room after presenting there for fatigue, nausea, and generalized weakness. Along with the above symptoms, he also reported some mild shortness of breath as well. He denies any overt chest pain and his major complaint in the emergency room was that of sinus congestion which she has had on and off for a protracted period of time. He did admit to some feelings of coldness but denied any overt chills. Other associated symptoms include a dry cough and feeling sleepy. His family did report that he did not tolerate his last dialysis treatment on Thursday very well with issues related to intermittent hypotension requiring IV fluid boluses to maintain his systolic BP. His dialysis treatment was ended early and even after this, he still felt somewhat dizzy and report just not feeling well in general. Workup and evaluation at [facility] ER demonstrated a low-grade temperature a 100.1? in association with hypoxia of 80% on room air. His oxygen saturations improved with application of supplemental oxygen. Routine blood test demonstrated a normal white blood cell count with associated anemia
--- NOTE | 2024-05-15 12:20 | P.CONNP_ITS ---
Assessment and Plan Assessment and plan (1) End stage renal disease: Code(s): N18.6 - End stage renal disease Status: Chronic Assessment and Plan: * currently in-training for home hemodialysis * last treatment was on 05/13/24 * that treatment was complicated by hypotension leading to diminished/decreased fluid removal * further complicated by administration of IVFs/normal saline due to low BP * DUF (dry ltrafiltration) for further fluid removal today * plan HD tomorrow (2) Acute respiratory failure with hypoxia: Code(s): J96.01 - Acute respiratory failure with hypoxia Status: Acute Assessment and Plan: * noted hypoxia on presentation to OSH emergency room * presumed to be secondary to volume overload/pulmonary edema * CXR with diffuse lung disease + moderated pulmonary edema and small right pleural effusion * push fluid removal as tolerated by hemodynamics * wean off oxygen as tolerated (3) Elevated troponin: Code(s): R79.89 - Other specified abnormal findings of blood chemistry Status: Acute Assessment and Plan: * as noted in ER * no EKG changes consistent with ischemia * related to ESRD status (?) * Cardiology consulted (4) Anemia: Code(s): D64.9 - Anemia, unspecified Status: Acute Assessment and Plan: * low H/H noted on admission * Epogen with HD * iron studies demonstrate iron deficiency as well * dose with IV iron with dialysis * follow trend of H/H * PRBC transfusion per protocol (5) Urinary tract infection: Code(s): N39.0 - Urinary tract infection, site not specified Status: Acute Assessment and Plan: * admission UA highly suggestive * follow culture data * antibiotics on hold (6) HTN (hypertension): Code(s): I10 - Essential (primary) hypertension Status: Chronic Assessment and Plan: * reasonable control at this time * holding amlodipine given issues with hypotension with dialysis * follow trend of hemodynamics (7) Diabetes: Code(s): E11.9 - Type 2 diabetes mellitus without complications Status: Acute Assessment and Plan: * presumed etiology of ESRD status * follow accu-checks * glycemic control per hospitalists I will continue follow the patient with you while remains hospitalized and make further recommendations as deemed necessary. Thank you for allowing me to participate in the care of this patient. History of Present Illness Reason for Consult Consult date: 05/15/24 Reason for consult: end stage renal disease Chief Complaint Chief complaint: ESRD on HD, hypotension History of Present Illness Narrative: The patient is a 68-year-old male with a past medical history as outlined below who was directly admitted to [facility] from [facility] emergency room after presenting there for fatigue, nausea, and generalized weakness. Along with the above symptoms, he also reported some mild shortness of breath as well. He denies any overt chest pain and his major complaint in the emergency room was that of sinus congestion which she has had on and off for a protracted period of time. He did admit to some feelings of coldness but denied any overt chills. Other associated symptoms include a dry cough and feeling sleepy. His family did report that he did not tolerate his last dialysis treatment on Thursday very well with issues related to intermittent hypotension requiring IV fluid boluses to maintain his systolic BP. His dialysis
[2024-05-15] MEDS: HEPARIN SODIUM 1,000 UNITS/ML VIAL 4000 UNITS (12:40)
--- NOTE | 2024-05-15 13:21 | PC.NURSE ---
1310 pt returned to floor from dialysis
[2024-05-15] MEDS: ASPIRIN 81 MG ENTERIC TABLET PO (13:29)
[2024-05-15] MEDS: TAMSULOSIN HCL 0.4 MG CAPSULE PO (13:29)
[2024-05-15] MEDS: FERROUS SULFATE 325 MG TABLET DR BY MOUTH (13:30)
--- NOTE | 2024-05-15 13:58 | PC.NURSE ---
pt sat up at bedside, had episode of dizzyness, bp checked while laying and sitting, o2 remains stable at 96 on room air, pt reports no further itching at dialysis cath site
--- NOTE | 2024-05-15 14:30 | PC.NURSE ---
pt 02 drops to 87% when sleeping, 02 reapplied at 2L per rn pacu
[2024-05-15 15:20] LABS: Glucose Point of Care 173 mg/dl (65-105)
--- NOTE | 2024-05-15 15:48 | PM.CNCAR ---
Assessment and Plan Assessment and plan (1) Elevated troponin: Code(s): R79.89 - Other specified abnormal findings of blood chemistry Status: Acute Plan Sepsis Intermittent Hypotension probably related to sepsis End-stage renal disease on hemodialysis Elevated troponin likely type 2 NSTEMI in the setting of end-stage renal disease and possible sepsis Hypertension control Plan Echocardiogram to evaluate cardiac function and rule out pericardial effusion Decrease blood pressure medicines accept mild degree of hypertension Decrease amlodipine to 5 mg daily History of Present Illness History of Present Illness Consult date/time: 05/15/24 15:48 Reason For Visit: ESRD on HD, hypotension Narrative: 68-year-old male patient with history of end-stage renal disease presents to the hospital because of symptoms of feeling dizzy fatigue shortness of breath inability to complete dialysis sessions because of intermittent hypertension. He has transient terms of losing consciousness specially when standing up or sitting up. Patient also complaining of headache moderate to severe diffuse across the scalp. He is feeling very weak and has been using wheelchair recently. He was found to have low-grade fever on presentation Review of Systems Review of Systems: All systems reviewed & are unremarkable except as noted in HPI and below PMFSH Past Medical History Medical History (Updated 05/15/24 @ 14:21 by Alexis Langston MD) Anemia Diabetes Diarrhea End stage renal disease HTN (hypertension) IBS (irritable bowel syndrome) Overweight (BMI 25.0-29.9) PVD (peripheral vascular disease) Urinary retention Surgical History Surgical History (Updated 05/15/24 @ 14:05 by Alexis Langston MD) S/P arteriovenous (AV) fistula creation S/P dialysis catheter insertion Status post below knee amputation of right lower extremity Family History Family History Father Congestive heart failure Mother Cancer Social History Social History Smoking status: Never smoker Second hand tobacco smoke exposure: No Alcohol intake: never Substance use: never Substance use type: does not use Do You Feel Safe in your Home?: Yes Lack of Transportation: No Lack of Food: Never True Current Housing: I Have Housing Concerned About Future Housing: No Difficulty Paying Gas/Electric Bills: No Difficulty Paying for Meds: No Currently Unemployed: No Education: High School Diploma/GED Difficulty w/ Childcare or Family Care: No Living arrangements: with family Spiritual care concerns: No Meds Home Medications and Allergies Home Medications Medication Instructions Recorded Confirmed Type ferrous sulfate 324 mg (65 mg 324 mg PO DAILY 12/16/23 05/14/24 History iron) tablet,delayed release tamsulosin 0.4 mg capsule 0.4 mg PO DAILY 12/16/23 05/14/24 History amlodipine 5 mg tablet 10 mg PO DAILY 02/10/24 05/14/24 History ergocalciferol (vitamin D2) 1,250 1,250 mcg PO WEEKLY 02/10/24 05/14/24 History mcg (50,000 unit) capsule aspirin 81 mg tablet 81 mg PO DAILY 05/14/24 05/14/24 History Allergies Allergy/AdvReac Type Severity Reaction Status Date / Time No Known Allergies Allergy Verified 05/14/24 22:49 Vital Signs Vital Signs - 24 hr 05/14/24 22:10 05/15/24 00:24 05/15/24 05:21 Temperature 36.3 C L 36.3 C L 36.3 C L Pulse Rate 89 89 83 Respiratory Rate 18 18 18 Blood Pressure 127/62 130/60 125/68 Pulse Oximetry 95 92 95 Oxygen Delivery Oxygen Flow Rate 05/15/24 08:00 05/14/24 22:38 05/15/24 00:00 Temperature 37.2 C Pulse Rate 82 89 89 Respiratory Rate 18 18 18 Blood Pressure 127/62 Pulse Oximetry 95 95 91 Oxygen Delivery Room Air Room Air Oxygen Flow Rate 05/15/24 00:30 05/15/24 02:00 05/15/24 02:30 Temperature Pulse Rate 91 90 84 Respirato
[2024-05-15 16:43] LABS: Glucose Point of Care 249 mg/dl (65-105)
[2024-05-15] MEDS: INSULIN ASPART (*BKC) 100 UNITS/ML SUB-Q ×2 (16:51→21:06)
--- NOTE | 2024-05-15 18:44 | PC.NURSE ---
Educational packet on Heart Failure given to pt
[2024-05-15 20:54] LABS: Glucose Point of Care 259 mg/dl (65-105)
[2024-05-16] VITALS (30 sets, daily range): BP systolic 122–145; BP diastolic 59–83; PULSE 65–80; RESP 16–22; TEMP 36–37.1; O2SAT 10–100
--- NOTE | 2024-05-16 | ECHO_ITS ---
Patient Info Name: Sukhdev Lowery Age: 68 years : 1955 Gender: Male Ht: 68 in Wt: 163 lbs BSA: 1.89 m2 HR: 73 bpm BP: 130 / 70 mmHg Heart Rhythm: Sinus Rhythm Technical Quality: Good Exam Date: 05/16/2024 2:50 PM Exam Location: Echo Lab Patient Status: Outpatient Admit Date: 05/14/2024 Staff Ordering Physician: Nilson Jerez DO Natural Resource Economist: Ruth Salvador RDCS Attending Provider: Marilou Sena APRN Referring Physician: Solitario IRWIN; Exam Type: CA echo limited w contrast Study Info Indications - elevated troponin Limited two-dimensional transthoracic echocardiogram is performed with contrast. Summary 1. Limited echocardiogram. 2. Definity contrast administered improved wall motion interpretation. 3. Left ventricular chamber dimension is normal. 4. Left ventricular systolic function is normal, estimated at 65-70%. 5. There is mild concentric increased left ventricular wall thickness. 6. The left ventricular diastolic function is grade II diastolic dysfunction. 7. E/e' 18 is elevated. Left Ventricle E/e' 18 is elevated. Definity contrast administered improved wall motion interpretation. Left ventricular chamber dimension is normal. Left ventricular systolic function is normal, estimated at 65-70%. There is mild concentric increased left ventricular wall thickness. The left ventricular diastolic function is grade II diastolic dysfunction. Limited echocardiogram. Mitral Valve Name Value Normal MV Doppler MV Decel Caroline 532 cm/s2 MV PHT 65 ms MV Area (PHT) 3.4 cm2 4.0-5.0 MV Diastolic Function MV E Peak Velocity 119 cm/s MV A Peak Velocity 120 cm/s MV E/A 1.0 MV Decel Time 225 ms MV Annular TDI MV E/e' (Septal) 17.6 <=8.0 MV E/e' (Lateral) 20.2 <=8.0 MV E/e' (Average) 18.9 Ventricles Name Value Normal LV Fractional Shortening/Ejection Fraction 2D/MM LV Diastolic Volume (4C MOD) 108 ml LV EF (4C MOD) 65 % LV Diastolic Volume (2C MOD) 105 ml LV EF (2C MOD) 67 % LV Diastolic Volume (BP MOD) 106 ml 62-150 LV Diastolic Volume Index (BP MOD) 56 ml/m2 34-74 LV Systolic Volume (BP MOD) 38 ml 21-61 LV Systolic Volume Index (BP MOD) 20 ml/m2 11-31 LV EF (BP MOD) 64 % 52-72 LV Diastolic Length (4C) 8.5 cm LV Systolic Length (4C) 6.7 cm LV Stroke Volume (4C MOD) 70 ml Report Signatures 1
[2024-05-16 06:32] LABS: Basophils Absolute Auto 0.1 K/mm3 (0.0-0.1); Basophils Percent Auto 1.3 % (0.2-1.2); Eosinophils Absolute Auto 0.4 K/mm3 (0-0.3); Eosinophils Percent Auto 6.1 % (0-4.4); Hemoglobin 7.9 g/dL (14.0-18.0); Immature Granulocyte Absolute 0.01 K/mm3 (0.00-0.031); Immature Granulocyte Percent A 0.1 % (0-0.5); Lymphocytes Absolute Auto 2.29 K/mm3 (0.9-3.2); Lymphocytes Percent Auto 31.9 % (18.3-44.2); Mean Corpuscular HGB Conc 32.9 g/dl (32-36); Mean Corpuscular Volume 94.1 fl (80-100); Mean Platelet Volume 10.5 fl (7.4-10.4); Monocytes Absolute Auto 0.4 K/mm3 (0.1-0.6); Neutrophils Absolute Auto 3.9 K/mm3 (1.3-6.7); Neutrophils Percent Auto 54.6 % (45.5-73.1); Platelet Count Result 139 k/mm3 (150-375); Red Blood Count 2.55 M/mm3 (4.6-6.20); Red Cell Distribution Width 13.4 % (11.5-14.5); White Blood Count 7.2 K/mm3 (4.5-10.0)
[2024-05-16 06:55] LABS: Alanine Aminotransferase 10 U/L (6-50); Albumin Level 3.3 g/dL (3.5-5.1); Alkaline Phosphatase 72 U/L (38-126); Anion Gap 10 mmol/L (4-12); Aspartate Amino Transferase 14 U/L (17-59); Bilirubin,Total 0.5 mg/dL (0.2-1.3); Blood Urea Nitrogen 89 mg/dL (9-20); Calcium 8.1 mg/dL (8.4-10.2); Carbon Dioxide 26 mmol/L (22-30); Chloride 100 mmol/L (98-107); Estimated CRCL calculation 8 ml/min; Estimated Glomerular Filt Rate 7; Glucose 148 mg/dL (65-110); Phosphorus 5.5 mg/dL (2.5-4.5); Potassium 3.2 mmol/L (3.4-5.0); Sodium 136 mmol/L (137-145)
--- NOTE | 2024-05-16 07:49 | PM.CNCAR ---
Assessment and Plan Assessment and plan (1) Elevated troponin: Code(s): R79.89 - Other specified abnormal findings of blood chemistry Status: Acute Assessment and Plan: Check troponin. If downtrending, likely due to volume overload from missing HD. 03/30/24 Lexiscan myoview: Negative. (2) ESRD on hemodialysis: Code(s): N18.6 - End stage renal disease; Z99.2 - Dependence on renal dialysis Status: Acute (3) HTN (hypertension): Code(s): I10 - Essential (primary) hypertension Status: Chronic Assessment and Plan: Stable. Stop Amlodipine and restart at lower dose if needed. Monitor BP. (4) Diastolic dysfunction: Code(s): I51.89 - Other ill-defined heart diseases Status: Acute Assessment and Plan: 04/26/24 Echo: EFF 65-70%, mild LVH, grade I diastolic dysfunction (E/e' 20), trace MR, mild TR. Volume status regulared by HD. History of Present Illness History of Present Illness Consult date/time: 05/16/24 07:49 Reason For Visit: ESRD on HD, hypotension Narrative: 68 yr old man who is my regular cardiology patient and a patient of Dr. Galarza presents to hospital with sob. He has a history of DM, hypertension, ESRD on HD, right BKA from DM. He went to dialysis last week but could not complete it as his BP got too low. Subsequently he felt more sob. No chest pains. Denies chest pain, orthopnea, PND, edema, dizziness, palpitations. Two months ago he became unresponsive and sent to [facility]. He was there for a couple of weeks as he needed dialysis from acute renal failure. He has no energy, feels weak and only walks around the house. Cardiovascular Procedures Echo/MUGA:: 03/31/22 Echo: EF 55-60%, mod LVH, grade I diastolic dysfunction (E/e' 18), mild LAE, mild (BUBBA 1.9 cm2), mild MR, trace TR, RVSP 53 mmHg. Electrophysiology:: 02/10/24 EKG: Sinus rhythm. Review of Systems Review of Systems: All systems reviewed & are unremarkable except as noted in HPI and below Constitutional: Constitutional: Reports as per HPI, Denies chills, Reports fatigue and Reports fever(s) Cardiovascular: Cardiovascular: Reports as per HPI, Denies chest pain and Denies irregular heart rhythm Respiratory: Respiratory: Reports as per HPI and Reports dyspnea Gastrointestinal: Gastrointestinal: Reports as per HPI and Denies abdominal pain Genitourinary: Genitourinary: Reports as per HPI and Denies dysuria Musculoskeletal: Musculoskeletal: Reports as per HPI Neurologic: Reports as per HPI, Reports dizziness and Denies syncope [facility] Past Medical History Medical History (Updated 05/16/24 @ 07:52 by Nilson Jerez DO) Anemia Diabetes Diarrhea End stage renal disease HTN (hypertension) IBS (irritable bowel syndrome) Overweight (BMI 25.0-29.9) PVD (peripheral vascular disease) Urinary retention Surgical History Surgical History (Updated 05/15/24 @ 14:05 by Alexis Langston MD) S/P arteriovenous (AV) fistula creation S/P dialysis catheter insertion Status post below knee amputation of right lower extremity Family History Family History Father Congestive heart failure Mother Cancer Social History Social History Smoking status: Never smoker Second hand tobacco smoke exposure: No Alcohol intake: never Substance use: never Substance use type: does not use Do You Feel Safe in your Home?: Yes Lack of Transportation: No Lack of Food: Never True Current Housing: I Have Housing Concerned About Future Housing: No Difficulty Paying Gas/Electric Bills: No Difficulty Paying for Meds: No Currently Unemployed: No Education: High School Diploma/GED Difficulty w/ Childcare or Family Care: No Living arrangements: with family Spiritual care concerns: No Meds Home Medications and Allergies Home Medications Medication
[2024-05-16 08:48] LABS: Glucose Point of Care 153 mg/dl (65-105)
[2024-05-16] MEDS: ALBUMIN HUMAN 25% 12.5 GM/50ML 50 ML IVPB ×2 (09:04→09:31)
[2024-05-16 09:16] LABS: Troponin I 0.685 ng/mL (0.000-0.034)
[2024-05-16] MEDS: EPOETIN ALFA-EPBX 10,000 UNITS/ML VIAL 10000 UNITS IV PUSH (09:32)
--- NOTE | 2024-05-16 09:55 | P.PNNP_ITS ---
Progress Note: A&P Assessment and Plan (1) End stage renal disease: Code(s): N18.6 - End stage renal disease Status: Chronic Assessment and Plan: * currently in-training for home hemodialysis * last outpatient treatment was on 05/13/24 * that treatment was complicated by hypotension leading to diminished /decreased fluid removal * further complicated by administration of IVFs/normal saline due to low BP * DUF (dry ltrafiltration) on 05/15/24 * HD today * follow electrolytes, volume status, and clearance (2) Acute respiratory failure with hypoxia: Code(s): J96.01 - Acute respiratory failure with hypoxia Status: Acute Assessment and Plan: * noted hypoxia on presentation to OSH emergency room * presumed to be secondary to volume overload/pulmonary edema * CXR with diffuse lung disease + moderated pulmonary edema and small right pleural effusion * push fluid removal as tolerated via HD/DUF by hemodynamics * wean off oxygen as tolerated (3) Elevated troponin: Code(s): R79.89 - Other specified abnormal findings of blood chemistry Status: Acute Assessment and Plan: * as noted in ER * no EKG changes consistent with ischemia * Cardiology following * recent Echo results noted (4) Anemia: Code(s): D64.9 - Anemia, unspecified Status: Acute Assessment and Plan: * low H/H noted on admission * Epogen with HD * iron studies demonstrate iron deficiency as well * dose with IV iron with dialysis * follow trend of H/H * PRBC transfusion per protocol (5) Urinary tract infection: Code(s): N39.0 - Urinary tract infection, site not specified Status: Acute Assessment and Plan: * admission UA highly suggestive * follow culture data * antibiotics on hold (6) HTN (hypertension): Code(s): I10 - Essential (primary) hypertension Status: Chronic Assessment and Plan: * reasonable control at this time * holding amlodipine given issues with hypotension with dialysis * follow trend of hemodynamics (7) Diabetes: Code(s): E11.9 - Type 2 diabetes mellitus without complications Status: Acute Assessment and Plan: * presumed etiology of ESRD status * follow accu-checks * glycemic control per hospitalists Will continue to follow. Subjective Date/time seen: 05/16/24 09:55 Interval history: Follow-up for end stage renal disease on hemodialysis. Tolerated DUF treatment yesterday with about 3L fluid removal and tolerating dialysis treatment at the time of my visit (seen on HD at 9:45AM); stable hemodynamics noted but no apparent respiratory distress voiced; still on supplemental oxygen by nasal cannula; no issues/events overnight or earlier this morning. Exam Narrative: General: WD/WN male in NAD Heart: normal S1 and S2; no rub Lungs: coarse and decreased at bases Abdomen: soft, nontender, nondistended, positive bowel sounds Extremities: no cyanosis or clubbing; no edema; s/p right BKA Skin: warm and dry Objective Data Vital Signs Vital Signs: Vital Signs Temp Pulse Resp BP Pulse Ox O2 Del Method O2 Flow Rate 05/16/24 09:45 74 127/66 05/16/24 09:30 77 132/66 05/16/24 09:15 75 122/63 05/16/24 09:00 76 125/63 05/16/24 08:48 80 132/67
--- NOTE | 2024-05-16 09:55 | PM.PNNEP ---
Progress Note: A&P Assessment and Plan (1) End stage renal disease: Code(s): N18.6 - End stage renal disease Status: Chronic Assessment and Plan: currently in-training for home hemodialysis last outpatient treatment was on 05/13/24 that treatment was complicated by hypotension leading to diminished/decreased fluid removal further complicated by administration of IVFs/normal saline due to low BP DUF (dry ltrafiltration) on 05/15/24 HD today follow electrolytes, volume status, and clearance (2) Acute respiratory failure with hypoxia: Code(s): J96.01 - Acute respiratory failure with hypoxia Status: Acute Assessment and Plan: noted hypoxia on presentation to OSH emergency room presumed to be secondary to volume overload/pulmonary edema CXR with diffuse lung disease + moderated pulmonary edema and small right pleural effusion push fluid removal as tolerated via HD/DUF by hemodynamics wean off oxygen as tolerated (3) Elevated troponin: Code(s): R79.89 - Other specified abnormal findings of blood chemistry Status: Acute Assessment and Plan: as noted in ER no EKG changes consistent with ischemia Cardiology following recent Echo results noted (4) Anemia: Code(s): D64.9 - Anemia, unspecified Status: Acute Assessment and Plan: low H/H noted on admission Epogen with HD iron studies demonstrate iron deficiency as well dose with IV iron with dialysis follow trend of H/H PRBC transfusion per protocol (5) Urinary tract infection: Code(s): N39.0 - Urinary tract infection, site not specified Status: Acute Assessment and Plan: admission UA highly suggestive follow culture data antibiotics on hold (6) HTN (hypertension): Code(s): I10 - Essential (primary) hypertension Status: Chronic Assessment and Plan: reasonable control at this time holding amlodipine given issues with hypotension with dialysis follow trend of hemodynamics (7) Diabetes: Code(s): E11.9 - Type 2 diabetes mellitus without complications Status: Acute Assessment and Plan: presumed etiology of ESRD status follow accu-checks glycemic control per hospitalists Will continue to follow. Subjective Date/time seen: 05/16/24 09:55 Interval history: Follow-up for end stage renal disease on hemodialysis. Tolerated DUF treatment yesterday with about 3L fluid removal and tolerating dialysis treatment at the time of my visit (seen on HD at 9:45AM); stable hemodynamics noted but no apparent respiratory distress voiced; still on supplemental oxygen by nasal cannula; no issues/events overnight or earlier this morning. Exam Narrative: General: WD/WN male in NAD Heart: normal S1 and S2; no rub Lungs: coarse and decreased at bases Abdomen: soft, nontender, nondistended, positive bowel sounds Extremities: no cyanosis or clubbing; no edema; s/p right BKA Skin: warm and dry Objective Data Vital Signs Vital Signs: Vital Signs Temp Pulse Resp BP Pulse Ox O2 Del Method O2 Flow Rate 05/16/24 09:45 74 127/66 05/16/24 09:30 77 132/66 05/16/24 09:15 75 122/63 05/16/24 09:00 76 125/63 05/16/24 08:48 80 132/67 05/16/24 08:34 97.7 F 79 17 128/62 97 05/16/24 08:34 2 05/16/24 08:00 96.8 F L 79 18 132/59 L 93 05/16/24 06:00 75 05/16/24 04:00 72 05/16/24 05:00 98.2 F 70 20 132/64 95 05/16/24 04:00 93 Nasal Cannula 2 05/16/24 02:00 77 05/16/24 00:00 79 05/16/24 00:00 91 Nasal Cannula 1 05/15/24 23:51 98.2 F 79 18 118/58 L 94 05/15/24 22:00 80 05/15/24 20:00 90 Nasal Cannula 1 05/15/24 20:00 80 05/15/24 20:59 98.2 F 78 18 122/54 L 92 05/15/24 18:00 80 05/15/24 16:00 79 05/15/24 16:00 98.4 F 80 18 131
[2024-05-16] MEDS: IRON SUCROSE COMPLEX 200 MG in SODIUM CHLORIDE 0.9% IV 100 ML 220 MG IVPB (10:11)
[2024-05-16] MEDS: TAMSULOSIN HCL 0.4 MG CAPSULE PO (12:53)
[2024-05-16] MEDS: FERROUS SULFATE 325 MG TABLET DR BY MOUTH (12:53)
[2024-05-16] MEDS: ASPIRIN 81 MG ENTERIC TABLET PO (12:53)
[2024-05-16] MEDS: ACETAMINOPHEN 325 MG TABLET 650 MG PO ×3 (12:53→21:25)
[2024-05-16 14:18] LABS: Glucose Point of Care 183 mg/dl (65-105)
[2024-05-16] MEDS: PERFLUTREN LIPID MICROSPHERES 1.5 ML VIAL DILUTED TO 10 ML TOTAL VOLUME IV PUSH (15:02)
--- NOTE | 2024-05-16 16:05 | P.PNIM_ITS ---
Progress Note: A&P Assessment and Plan (1) Acute respiratory failure with hypoxia: Code(s): J96.01 - Acute respiratory failure with hypoxia Status: Acute Assessment and Plan: 05/15/24: * Initially meeting SIRS criteria with HR of 101 and RR 22. Temp 100.3, Lactate 0.7, SPO2 88% on room air, patient started on 2L NC * likely due to fluid overload, patient is ESRD on HD however he had an interrupted HD session Thursday due to hypotension * Chest x-ray shown diffuse lung disease, moderate pulmonary edema, small right pleural effusion. * Plan for HD today * Continue to wean O2 to keep sat greater than 92% 05/16/24: * Currently on 3 L nasal cannula * Continue to wean O2 to keep the sat greater than 92% * Plan for the DUF again today per Nephrology (2) Elevated troponin: Code(s): R79.89 - Other specified abnormal findings of blood chemistry Status: Acute Assessment and Plan: 05/15/24: * Initial troponin 330.7, CK-MB less than 0.5 * Possible demand ischemia * Repeat troponin I was 0.823 * EKG shown sinus rhythm with borderline left axis deviation, rate 83, QTC 444 * Echo reviewed from 04/26/2024 which showed normal LV systolic function with an estimated EF of 65-70%, grade 1 diastolic dysfunction, moderate aortic valve sclerosis * Patient had nuclear med Lexiscan stress test on 03/30/2024 which showed normal myocardial perfusion at rest and during stress * Cardiology consulted 05/16/24: * Plan for echo today * Cardiology following (3) ESRD on hemodialysis: Code(s): N18.6 - End stage renal disease; Z99.2 - Dependence on renal dialysis Status: Acute Assessment and Plan: 05/15/24: * ESRD on HD, last session was Thursday which was interrupted due to hypotension and had to receive IVF. * Nephrology consult * Patient had dialysis today with 4 L removal * Plan for dialysis again tomorrow which is his regularly scheduled HD session * Patient has dialysis Thursday and is a patient of Dr. Langston * Anuric * Continue tamsulosin * Initial BUN 67, creatinine 5.0 * Today BUN 77, creatinine 5.9, EGFR 10, potassium 3.2 05/16/24: * DUF again today with 2 L fluid removal * Nephrology following * Creatinine 7.8, EGFR 7 (4) Abnormal finding on urinalysis: Code(s): R82.90 - Unspecified abnormal findings in urine Status: Acute Assessment and Plan: 05/15/24: * UA showing when urine specific gravity of 1.025, 3+ urine protein, 1+ urine glucose, 2+ urine blood, 1+ urine bili, trace leukocyte, urine WBC 10-15, 4+ bacteria. * Blood and urine cultures were obtained and are pending 05/16/24: * Blood cultures are showing no growth to date on preliminary reads (5) Anemia in ESRD (end-stage renal disease): Code(s): N18.6 - End stage renal disease; D63.1 - Anemia in chronic kidney disease Status: Inactive Assessment and Plan: 05/15/24: * likely secondary to ESRD, anemia of chronic disease * Nephrology following * Hgb 7.3, Hct 22.6 * Continue ferrous sulfate * Vitamin B12 501, folate 12.5 ferritin 345 05/16/24: * Hemoglobin 7.9 (6) HTN (hypertension): Code(s): I10 - Essential (primary) hypertension Status: Chronic Assessment and Plan: 05/15/24: * Blood pressure ranging 109/62 to 127/62 * Amlodipine on hold due to issues with hypotension 05/16/24: * Blood pressures ranging 131/59 to 143/83 * Will await results of echo before restarting his home meds (7) Diabetes: Code(s): E11.9 - Type 2 diabetes mellitus without compl
--- NOTE | 2024-05-16 16:05 | PM.IMPN ---
Progress Note: A&P Assessment and Plan (1) Acute respiratory failure with hypoxia: Code(s): J96.01 - Acute respiratory failure with hypoxia Status: Acute Assessment and Plan: 05/15/24: Initially meeting SIRS criteria with HR of 101 and RR 22. Temp 100.3, Lactate 0.7, SPO2 88% on room air, patient started on 2L NC likely due to fluid overload, patient is ESRD on HD however he had an interrupted HD session Thursday due to hypotension Chest x-ray shown diffuse lung disease, moderate pulmonary edema, small right pleural effusion. Plan for HD today Continue to wean O2 to keep sat greater than 92% 05/16/24: Currently on 3 L nasal cannula Continue to wean O2 to keep the sat greater than 92% Plan for the DUF again today per Nephrology (2) Elevated troponin: Code(s): R79.89 - Other specified abnormal findings of blood chemistry Status: Acute Assessment and Plan: 05/15/24: Initial troponin 330.7, CK-MB less than 0.5 Possible demand ischemia Repeat troponin I was 0.823 EKG shown sinus rhythm with borderline left axis deviation, rate 83, QTC 444 Echo reviewed from 04/26/2024 which showed normal LV systolic function with an estimated EF of 65-70%, grade 1 diastolic dysfunction, moderate aortic valve sclerosis Patient had nuclear med Lexiscan stress test on 03/30/2024 which showed normal myocardial perfusion at rest and during stress Cardiology consulted 05/16/24: Plan for echo today Cardiology following (3) ESRD on hemodialysis: Code(s): N18.6 - End stage renal disease; Z99.2 - Dependence on renal dialysis Status: Acute Assessment and Plan: 05/15/24: ESRD on HD, last session was Thursday which was interrupted due to hypotension and had to receive IVF. Nephrology consult Patient had dialysis today with 4 L removal Plan for dialysis again tomorrow which is his regularly scheduled HD session Patient has dialysis Thursday and is a patient of Dr. Ivis Buck Continue tamsulosin Initial BUN 67, creatinine 5.0 Today BUN 77, creatinine 5.9, EGFR 10, potassium 3.2 05/16/24: DUF again today with 2 L fluid removal Nephrology following Creatinine 7.8, EGFR 7 (4) Abnormal finding on urinalysis: Code(s): R82.90 - Unspecified abnormal findings in urine Status: Acute Assessment and Plan: 05/15/24: UA showing when urine specific gravity of 1.025, 3+ urine protein, 1+ urine glucose, 2+ urine blood, 1+ urine bili, trace leukocyte, urine WBC 10-15, 4+ bacteria. Blood and urine cultures were obtained and are pending 05/16/24: Blood cultures are showing no growth to date on preliminary reads (5) Anemia in ESRD (end-stage renal disease): Code(s): N18.6 - End stage renal disease; D63.1 - Anemia in chronic kidney disease Status: Inactive Assessment and Plan: 05/15/24: likely secondary to ESRD, anemia of chronic disease Nephrology following Hgb 7.3, Hct 22.6 Continue ferrous sulfate Vitamin B12 501, folate 12.5 ferritin 345 05/16/24: Hemoglobin 7.9 (6) HTN (hypertension): Code(s): I10 - Essential (primary) hypertension Status: Chronic Assessment and Plan: 05/15/24: Blood pressure ranging 109/62 to 127/62 Amlodipine on hold due to issues with hypotension 05/16/24: Blood pressures ranging 131/59 to 143/83 Will await results of echo before restarting his home meds (7) Diabetes: Code(s): E11.9 - Type 2 diabetes mellitus without complications Status: Acute Assessment and Plan: 05/15/24: Blood sugars ranging 201-211 Last hemoglobin A1c 4.8 on 03/27/22, will repeat today currently on a renal dialysis diet Accu-Cheks AC and HS Low-dose sliding scale insulin ordered Hypoglycemic protocol in place 05/16/24: No change to current treatment plan Time Spent With Patient Time with patient: 25 - 35 minutes Subjective Date/time seen: 05/16/24 16:05 Interval history: 05/15
--- NOTE | 2024-05-16 16:24 | IVDEFINITY ---
Prior to administration of IV Definity the patient was educated on the risks and benefits of the imaging enhancing agent including potential adverse side effects. The patient verbalized understanding. Allergies were verified. No exclusion criteria were identified and at least one of the following inclusion criteria were met: 1) physician request, 2) patient technically difficult to image (per the [place] [employer] guidelines of two or more segments not discernable within the apical view), or 3) questionable left ventricular function. ?
[2024-05-16 16:28] LABS: Glucose Point of Care 208 mg/dl (65-105)
[2024-05-16] MEDS: INSULIN ASPART (*BKC) 100 UNITS/ML SUB-Q (17:04)
[2024-05-16 19:58] LABS: Glucose Point of Care 206 mg/dl (65-105)
[2024-05-17] VITALS (11 sets, daily range): BP systolic 124–148; BP diastolic 54–73; PULSE 64–82; RESP 17–18; TEMP 36.3–36.8; O2SAT 98–100
[2024-05-17 07:44] LABS: Glucose Point of Care 148 mg/dl (65-105)
--- NOTE | 2024-05-17 07:47 | PM.PNCARD ---
Progress Note: A&P Assessment and Plan (1) Elevated troponin: Code(s): R79.89 - Other specified abnormal findings of blood chemistry Status: Acute Assessment and Plan: Troponin is downtrending, likely due to volume overload from missing HD. 03/30/24 Lexiscan myoview: Negative. 05/16/24 Limited echo: EF 65-70%, mild LVH, grade II diastolic dysfunction (E/e' 18). No further cardiac workup is needed. Have him f/u with me in 2 weeks. (2) ESRD on hemodialysis: Code(s): N18.6 - End stage renal disease; Z99.2 - Dependence on renal dialysis Status: Acute (3) HTN (hypertension): Code(s): I10 - Essential (primary) hypertension Status: Chronic Assessment and Plan: Stable. Stopped Amlodipine and restart at lower dose if needed. Monitor BP. (4) Diastolic dysfunction: Code(s): I51.89 - Other ill-defined heart diseases Status: Acute Assessment and Plan: 04/26/24 Echo: EFF 65-70%, mild LVH, grade I diastolic dysfunction (E/e' 20), trace MR, mild TR. Volume status regulated by HD. Subjective Date/time seen: 05/17/24 07:47 Interval history: Denies chest pain or sob. Exam Const: General: cooperative, healthy appearing and comfortable Orientation/consciousness: oriented to person, oriented to place and oriented to time Resp: Auscultation: clear to auscultation bilaterally, no crackles, no rales, no rhonchi and no wheezes Other: Coarse breath sounds bilaterally Cardio: Rate: regular rate Rhythm: regular rhythm Heart sounds: no murmurs Neuro: General: oriented to person, oriented to place and oriented to time Extrem: Left lower extremity: no edema Other: Right BKA Objective Data Vital Signs Vital Signs: Vital Signs - 24 hr 05/16/24 08:00 05/16/24 08:34 05/16/24 08:34 Temperature 96.8 F L 97.7 F Pulse Rate 79 79 Respiratory Rate 18 17 Blood Pressure 132/59 L 128/62 Pulse Oximetry 93 97 Oxygen Delivery Oxygen Flow Rate 2 Fraction of Inspired Oxygen 0 05/16/24 08:48 05/16/24 09:00 05/16/24 09:15 Temperature Pulse Rate 80 76 75 Respiratory Rate Blood Pressure 132/67 125/63 122/63 Pulse Oximetry Oxygen Delivery Oxygen Flow Rate Fraction of Inspired Oxygen 05/16/24 09:30 05/16/24 09:45 05/16/24 10:00 Temperature Pulse Rate 77 74 74 Respiratory Rate Blood Pressure 132/66 127/66 130/65 Pulse Oximetry Oxygen Delivery Oxygen Flow Rate Fraction of Inspired Oxygen 05/16/24 10:15 05/16/24 10:30 05/16/24 08:00 Temperature Pulse Rate 75 75 78 Respiratory Rate Blood Pressure 134/71 136/68 Pulse Oximetry Oxygen Delivery Oxygen Flow Rate Fraction of Inspired Oxygen 05/16/24 10:00 05/16/24 08:00 05/16/24 10:48 Temperature Pulse Rate 75 75 Respiratory Rate Blood Pressure 131/67 Pulse Oximetry 97 Oxygen Delivery Nasal Cannula Oxygen Flow Rate 2 Fraction of Inspired Oxygen 05/16/24 11:00 05/16/24 11:15 05/16/24 12:00 Temperature Pulse Rate 74 73 Respiratory Rate Blood Pressure 139/74 130/70 Pulse Oximetry 97 Oxygen Delivery Nasal Cannula Oxygen Flow Rate 2 Fraction of Inspired Oxygen 05/16/24 12:00 05/16/24 11:30 05/16/24 12:29 Temperature 98.2 F Pulse Rate 75 73 76 Respiratory Rate 16 Blood Pressure 130/68 143/69 H Pulse Oximetry 98 Oxygen Delivery Oxygen Flow Rate Fraction of Inspired Oxygen 05/16/24 11:45 05/16/24 12:00 05/16/24 12:18 Temperature Pulse Rate 73 73 73 Respiratory Rate Blood Pressure 141/73 H 143/83 H 145/73 H Pulse Oximetry Oxygen Delivery Oxygen Flow Rate Fraction of Inspired Oxygen 05/16/24 13:30 05/16/24 14:00 05/16/24 16:00 Temperature 97.9 F 97.7 F Pulse Rate 76 70 72 Respiratory Rate 18 22 H Blood Pressure 131/59 L 140/65 Pulse Oximetry 10 L 95 Oxygen Delivery Oxygen Flow Rate Fraction of Inspired Oxygen
[2024-05-17 08:16] LABS: Basophils Absolute Auto 0.1 K/mm3 (0.0-0.1); Basophils Percent Auto 1.9 % (0.2-1.2); Eosinophils Absolute Auto 0.4 K/mm3 (0-0.3); Hematocrit 24.6 % (42.0-52.0); Hemoglobin 8.3 g/dL (14.0-18.0); Immature Granulocyte Absolute 0.01 K/mm3 (0.00-0.031); Immature Granulocyte Percent A 0.2 % (0-0.5); Lymphocytes Absolute Auto 1.67 K/mm3 (0.9-3.2); Lymphocytes Percent Auto 31.1 % (18.3-44.2); Mean Corpuscular HGB Conc 33.7 g/dl (32-36); Mean Corpuscular Hemoglobin 31.3 pg (26-34); Mean Corpuscular Volume 92.8 fl (80-100); Mean Platelet Volume 10.1 fl (7.4-10.4); Monocytes Absolute Auto 0.4 K/mm3 (0.1-0.6); Monocytes Percent Auto 7.8 % (2.6-8.5); Neutrophils Absolute Auto 2.7 K/mm3 (1.3-6.7); Platelet Count Result 153 k/mm3 (150-375); Red Blood Count 2.65 M/mm3 (4.6-6.20); Red Cell Distribution Width 13.5 % (11.5-14.5); White Blood Count 5.4 K/mm3 (4.5-10.0)
[2024-05-17] MEDS: TAMSULOSIN HCL 0.4 MG CAPSULE PO (08:25)
[2024-05-17] MEDS: ASPIRIN 81 MG ENTERIC TABLET PO (08:25)
[2024-05-17] MEDS: FERROUS SULFATE 325 MG TABLET DR BY MOUTH (08:26)
[2024-05-17 08:32] LABS: Albumin Level 3.6 g/dL (3.5-5.1); Anion Gap 11 mmol/L (4-12); Blood Urea Nitrogen 42 mg/dL (9-20); Calcium 8.6 mg/dL (8.4-10.2); Carbon Dioxide 22 mmol/L (22-30); Chloride 104 mmol/L (98-107); Estimated CRCL calculation 15 ml/min; Estimated Glomerular Filt Rate 14; Glucose 213 mg/dL (65-110); Phosphorus 3.9 mg/dL (2.5-4.5); Potassium 3.7 mmol/L (3.4-5.0); Sodium 137 mmol/L (137-145)
--- NOTE | 2024-05-17 10:05 | P.PNNP_ITS ---
Progress Note: A&P Assessment and Plan (1) End stage renal disease: Code(s): N18.6 - End stage renal disease Status: Chronic Assessment and Plan: * currently in-training for home hemodialysis * last outpatient treatment was on 05/13/24 * that treatment was complicated by hypotension leading to diminished /decreased fluid removal * further complicated by administration of IVFs/normal saline due to low BP * DUF (dry ltrafiltration) on 05/15/24 * HD yesterday - plan next HD treatment tomorrow (here versus as an outpatient) * follow electrolytes, volume status, and clearance (2) Acute respiratory failure with hypoxia: Code(s): J96.01 - Acute respiratory failure with hypoxia Status: Acute Assessment and Plan: * clinically better * noted hypoxia on presentation to OSH emergency room * presumed to be secondary to volume overload/pulmonary edema * admission CXR with diffuse lung disease + moderated pulmonary edema and small right pleural effusion * continue to push fluid removal as tolerated via HD/DUF by hemodynamics * wean off oxygen as tolerated (3) Elevated troponin: Code(s): R79.89 - Other specified abnormal findings of blood chemistry Status: Acute Assessment and Plan: * as noted in ER * no EKG changes consistent with ischemia * Cardiology following * recent Echo results noted (4) Anemia: Code(s): D64.9 - Anemia, unspecified Status: Acute Assessment and Plan: * low H/H noted on admission * Epogen with HD * iron studies demonstrate iron deficiency as well * dose with IV iron with dialysis * follow trend of H/H * PRBC transfusion per protocol (5) Urinary tract infection: Code(s): N39.0 - Urinary tract infection, site not specified Status: Acute Assessment and Plan: * admission UA highly suggestive * follow culture data * antibiotics on hold (6) HTN (hypertension): Code(s): I10 - Essential (primary) hypertension Status: Chronic Assessment and Plan: * reasonable control at this time * holding amlodipine given issues with hypotension with dialysis * follow trend of hemodynamics (7) Diabetes: Code(s): E11.9 - Type 2 diabetes mellitus without complications Status: Acute Assessment and Plan: * presumed etiology of ESRD status * follow accu-checks * glycemic control per hospitalists Not opposed to discharge from renal perspective if otherwise medically stable. Will continue to follow. Subjective Date/time seen: 05/17/24 10:05 Interval history: Follow-up for end stage renal disease on hemodialysis. Tolerated dialysis treatment yesterday without any issues or problems; breathing/respiratory status better (although still on supplemental oxygen at the time of my visit); no apparent distress noted; no issues/events overnight or earlier this morning; asking about discharge today. Exam Narrative: General: WD/WN male in NAD Heart: normal S1 and S2; no rub Lungs: clear anteriolry but decreased at bases Abdomen: soft, nontender, nondistended, positive bowel sounds Extremities: no cyanosis or clubbing; no edema; s/p right BKA Skin: warm and intact Objective Data Vital Signs Vital Signs: Vital Signs Temp Pulse Resp BP Pulse Ox O2 Del Method O2 Flow Rate 05/17/24 10:00 81 0
--- NOTE | 2024-05-17 10:05 | PM.PNNEP ---
Progress Note: A&P Assessment and Plan (1) End stage renal disease: Code(s): N18.6 - End stage renal disease Status: Chronic Assessment and Plan: currently in-training for home hemodialysis last outpatient treatment was on 05/13/24 that treatment was complicated by hypotension leading to diminished/decreased fluid removal further complicated by administration of IVFs/normal saline due to low BP DUF (dry ltrafiltration) on 05/15/24 HD yesterday - plan next HD treatment tomorrow (here versus as an outpatient) follow electrolytes, volume status, and clearance (2) Acute respiratory failure with hypoxia: Code(s): J96.01 - Acute respiratory failure with hypoxia Status: Acute Assessment and Plan: clinically better noted hypoxia on presentation to OSH emergency room presumed to be secondary to volume overload/pulmonary edema admission CXR with diffuse lung disease + moderated pulmonary edema and small right pleural effusion continue to push fluid removal as tolerated via HD/DUF by hemodynamics wean off oxygen as tolerated (3) Elevated troponin: Code(s): R79.89 - Other specified abnormal findings of blood chemistry Status: Acute Assessment and Plan: as noted in ER no EKG changes consistent with ischemia Cardiology following recent Echo results noted (4) Anemia: Code(s): D64.9 - Anemia, unspecified Status: Acute Assessment and Plan: low H/H noted on admission Epogen with HD iron studies demonstrate iron deficiency as well dose with IV iron with dialysis follow trend of H/H PRBC transfusion per protocol (5) Urinary tract infection: Code(s): N39.0 - Urinary tract infection, site not specified Status: Acute Assessment and Plan: admission UA highly suggestive follow culture data antibiotics on hold (6) HTN (hypertension): Code(s): I10 - Essential (primary) hypertension Status: Chronic Assessment and Plan: reasonable control at this time holding amlodipine given issues with hypotension with dialysis follow trend of hemodynamics (7) Diabetes: Code(s): E11.9 - Type 2 diabetes mellitus without complications Status: Acute Assessment and Plan: presumed etiology of ESRD status follow accu-checks glycemic control per hospitalists Not opposed to discharge from renal perspective if otherwise medically stable. Will continue to follow. Subjective Date/time seen: 05/17/24 10:05 Interval history: Follow-up for end stage renal disease on hemodialysis. Tolerated dialysis treatment yesterday without any issues or problems; breathing/respiratory status better (although still on supplemental oxygen at the time of my visit); no apparent distress noted; no issues/events overnight or earlier this morning; asking about discharge today. Exam Narrative: General: WD/WN male in NAD Heart: normal S1 and S2; no rub Lungs: clear anteriolry but decreased at bases Abdomen: soft, nontender, nondistended, positive bowel sounds Extremities: no cyanosis or clubbing; no edema; s/p right BKA Skin: warm and intact Objective Data Vital Signs Vital Signs: Vital Signs Temp Pulse Resp BP Pulse Ox O2 Del Method O2 Flow Rate 05/17/24 10:00 81 05/17/24 08:00 78 05/17/24 07:41 97.4 F L 72 18 148/54 H 100 05/17/24 06:00 64 05/17/24 04:00 65 05/17/24 05:07 98.2 F 65 18 128/59 L 99 05/17/24 04:00 98 Nasal Cannula 2 05/17/24 02:00 66 05/17/24 00:00 64 05/17/24 00:25 98.2 F 70 18 124/62 100 05/17/24 00:00 99 Nasal Cannula 2 05/16/24 22:00 65 05/16/24 20:00 69 05/16/24 20:00 99 Nasal Cannula 2 05/16/24 20:22 98.2 F 70 18 124/62 100 05/16/24 18:00 72 05/16/24 16:00 71 05/16/24 16:00 95 Nasal Cannula 2
[2024-05-17 11:28] LABS: Glucose Point of Care 277 mg/dl (65-105)
--- NOTE | 2024-05-17 12:17 | PM.DS ---
DS: Admitting Diagnosis Discharge Date 05/17/24 Admitting Diagnosis Pulmonary edema End-stage renal disease on hemodialysis Anemia in end-stage renal disease Hypertension DS: Discharge Diagnosis Discharge Diagnosis (1) Acute respiratory failure with hypoxia: Code(s): J96.01 - Acute respiratory failure with hypoxia Status: Acute (2) Elevated troponin: Code(s): R79.89 - Other specified abnormal findings of blood chemistry Status: Acute (3) ESRD on hemodialysis: Code(s): N18.6 - End stage renal disease; Z99.2 - Dependence on renal dialysis Status: Acute (4) Abnormal finding on urinalysis: Code(s): R82.90 - Unspecified abnormal findings in urine Status: Acute (5) Anemia in ESRD (end-stage renal disease): Code(s): N18.6 - End stage renal disease; D63.1 - Anemia in chronic kidney disease Status: Inactive (6) HTN (hypertension): Code(s): I10 - Essential (primary) hypertension Status: Chronic (7) Diabetes: Code(s): E11.9 - Type 2 diabetes mellitus without complications Status: Acute DS: Summary Hospital Course Reason for hospitalization: Pulmonary edema End-stage renal disease on hemodialysis Anemia in end-stage renal disease Hypertension Hospital Course: This is a 68 year old male who presented to the hospital on 05/14/24 with complaints of fatigue, shortness of breath, sinus congestion nausea, and headache. Patient is on hemodialysis and most recent HD session was on Thursday however he did not tolerate it very well and they had to give him IVF to keep his blood pressure up. Work up in the hospital includes a chest x-ray that shown diffuse lung disease, moderate pulmonary edema and small right pleural effusion. Initial labs revealed hemoglobin of 7.6, platelet count 110, potassium 3.2, BUN 67, creatinine 5.0, EGFR 12, troponin 334.7, C reactive protein 9.5, proBNP 35,000. UA was obtained which shown 1.025 urine specific gravity, 3+ urine protein, 1+ urine glucose, 2+ urine blood, 1+ urine bili, trace leukocytes, 10-15 urine wbc's, 4+ bacteria. MRSA was negative. Respiratory panel was negative for influenza a and B, RSV, COVID. Hepatitis be antigen negative, hepatitis-B antibody positive. Blood and urine cultures were obtained and pending. Nephrology consulted. Patient had hemodialysis session on 05/15/2024 with 4 L fluid removal. He had a repeat session on 05/16/2024 and had 2 L fluid removal. He was weaned off of his oxygen and is now stable for discharge home. He will need to follow up with Cardiology in 2 weeks and resume his normal hemodialysis session per Dr. robbins. Final diagnosis: Acute respiratory failure with hypoxia, Pulmonary edema, end-stage renal disease, congestive heart failure with preserved ejection fraction Status at Discharge Cognitive/behavioral status at discharge: Alert oriented x3 Functional status at discharge: wheelchair bound Overall status at discharge: patient is progressing back to baseline Time Spent with Patient Time attestation: Total time spent providing and/or coordinating discharge services: Time spent: Greater than 30 minutes Exam Narrative: General: Chronically ill appearing Cardiac: Normal S1 and S2. No murmur, gallops or friction rubs Respiratory: Lungs clear to auscultation, no adventitious lung sounds, currently on 3 L nasal cannula Gastrointestinal: soft, non-distended, non-tender, normoactive bowel sounds. : voiding without difficulty. Extremities: right BKA Neuro: Alert and oriented x4 DS: Data Data Completed and Pending Completed studies during hospitalization: Chest x-ray Ultrasound echo with contrast Pending studies at discharge: Blood cultures Labs on day of discharge: Labs from last 24 hours 05/17/24 05/17/24 05/17/24 11:25 08:05 07:37 WBC 5.4 RBC 2.65 L Hgb 8.3 L Hct 24.6 L MCV 92.8 MCH 31.3 MCHC 33.7 RDW 13.5 Plt Count 153 MPV
[2024-05-17] MEDS: INSULIN ASPART (*BKC) 100 UNITS/ML SUB-Q (12:43)
== END 2024-05-17 14:00 | disposition home or self-care (01) | DRG 291 ==
PROVIDERS: Internal Medicine Cardiovascular Disease; Internal Medicine Nephrology; Admitting Provider Internal Medicine; PCP Family Medicine; Visit Provider Nurse Practitioner Acute Care
DX: I13.2 Hypertensive heart and chronic kidney disease with heart failure and with stage 5 chronic kidney disease, or end stage renal disease (principal); J96.01 Acute respiratory failure with hypoxia; N18.6 End stage renal disease; J81.1 Chronic pulmonary edema; N39.0 Urinary tract infection, site not specified; I50.30 Unspecified diastolic (congestive) heart failure; D63.1 Anemia in chronic kidney disease; E11.51 Type 2 diabetes mellitus with diabetic peripheral angiopathy without gangrene; E11.22 Type 2 diabetes mellitus with diabetic chronic kidney disease; K58.9 Irritable bowel syndrome, unspecified; R79.89 Other specified abnormal findings of blood chemistry; Z99.2 Dependence on renal dialysis; Z79.82 Long term (current) use of aspirin; Z89.511 Acquired absence of right leg below knee
CPT/HCPCS: 36415; 71045; 80053; 80069; 82607; 82728; 82746; 82948; 83036; 83540; 83550; 83735; 84100; 84484; 85025; 86706; 87040; 87340; 87641; 93005; 93308; 96374; 96375; 96376; A9270; C8924; G0257; G0378; G0379; J1644; J1756; J1815; J7030; P9047; Q4081; Q5105; Q9957

== ENCOUNTER 2024-05-23 14:27 | Emergency (ER) | payer MEDICARE, MEDICAID, SELFPAY ==
[2024-05-23] VITALS (9 sets, daily range): BP systolic 173–203; BP diastolic 61–148; PULSE 73–79; RESP 11–28; TEMP 36.6–36.7; O2SAT 97–100
--- NOTE | ~2024-05-23 | CT_ITS ---
EXAMINATION: CT brain wo con DATE: 05/23/2024 21:29 INDICATION: Headache. TECHNIQUE: Computed tomography (CT) of the head was performed without intravenous contrast. The mA wa s adjusted according to patient size. Iterative reconstruction technique was employed. The dose-lengt h product was 605.33 mGy-cm. COMPARISON: Head CT 02/10/2024 FINDINGS: There is a 1.6 x 0.9 x 2.0 cm calcified extra-axial mass medial to the left parietal lobe, consistent with a meningioma. There is no acute ischemic infarct or intracranial hemorrhage. The vent ricles are normal in size. There is mild mucosal thickening in the ethmoid sinuses. There are changes of right mastoidectomy. IMPRESSION: 1. 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 Reviewed, dictated and finalized at location E.
--- NOTE | ~2024-05-23 | XR_ITS ---
EXAMINATION: XR chest 1V portable DATE: 05/23/2024 19:55 INDICATION: Infection. TECHNIQUE: A single frontal view of the chest was obtained. COMPARISON: Chest single view 05/16/2024 FINDINGS: There is no pneumonia, pleural effusion, or pneumothorax. The heart size is normal. Calcifi ed right hilar lymph nodes are consistent with old granulomatous disease. A right internal jugular ce ntral venous catheter is seen with tip in the right atrium. IMPRESSION: 1. No acute cardiopulmonary disease. Reviewed, dictated and finalized at location E.
[2024-05-23 19:27] LABS: Glucose Point of Care 137 mg/dl (65-105)
--- NOTE | 2024-05-23 19:41 | ED.EYEPROB ---
HPI - Eye Problem General Chief complaint: Eye Problems Stated complaint: R eye pain Time Seen by Provider: 05/23/24 19:32 History of Present Illness HPI Narrative: Patient is a 68-year-old male who presents to the emergency department this evening complaining of a red right eye and an elevated blood pressure. Family was bedside states the patient was at dialysis today and then started to complain that his right eye was hurting and his blood pressure was found to be really high 200 systolic. Family members stated that the patient is no longer on blood pressure medications and that he was taking a problem because he was doing well and his blood pressure was actually dropping during dialysis. Patient's blood pressure is usually around 120 systolic and today for some reason it has been ranging between 170-200 systolic. Patient states that he took some Tylenol for his right eye pain and states that it helped. He denies any chest pain or shortness of breath. Denies any fevers or chills. Denies any additional symptoms or concerns. Related Data Home Medications Medication Instructions Recorded Confirmed ferrous sulfate 324 mg (65 mg 324 mg PO DAILY 12/16/23 05/14/24 iron) tablet,delayed release tamsulosin 0.4 mg capsule 0.4 mg PO DAILY 12/16/23 05/14/24 amlodipine 5 mg tablet 10 mg PO DAILY 02/10/24 05/14/24 ergocalciferol (vitamin D2) 1,250 1,250 mcg PO WEEKLY 02/10/24 05/14/24 mcg (50,000 unit) capsule aspirin 81 mg tablet 81 mg PO DAILY 05/14/24 05/14/24 Allergies Allergy/AdvReac Type Severity Reaction Status Date / Time No Known Allergies Allergy Verified 05/23/24 19:25 Review of Systems Review of Systems: All systems are reviewed and are negative unless stated otherwise in the HPI. [facility] Past Medical History Medical History Anemia Diabetes Diarrhea End stage renal disease HTN (hypertension) IBS (irritable bowel syndrome) Overweight (BMI 25.0-29.9) PVD (peripheral vascular disease) Urinary retention Surgical History Surgical History S/P arteriovenous (AV) fistula creation S/P dialysis catheter insertion Status post below knee amputation of right lower extremity Family History Family History Father Congestive heart failure Mother Cancer Social History Social History Smoking status: Never smoker Second hand tobacco smoke exposure: No Alcohol intake: never Substance use: never Substance use type: does not use Do You Feel Safe in your Home?: Yes Lack of Transportation: No Lack of Food: Never True Current Housing: I Have Housing Concerned About Future Housing: No Difficulty Paying Gas/Electric Bills: No Difficulty Paying for Meds: No Currently Unemployed: No Education: High School Diploma/GED Difficulty w/ Childcare or Family Care: No Living arrangements: with family Spiritual care concerns: No Exam Narrative: General: Alert, awake, afebrile, in no acute distress. HEENT: PERRL, no rhinorrhea, no post nasal drip, oropharynx clear, conjunctival injection the right eye. Cardiovascular: Regular rate and rhythm, no murmurs, rubs or gallops, no peripheral edema. Respiratory: Clear to auscultation bilaterally, no tachypnea, no wheezing, no rhonchi, no rubs, no respiratory distress. Abdomen: Soft, nontender, nondistended, no rebound, no guarding, no peritoneal signs. Musculoskeletal: No joint swelling or deformity, normal muscle tone. Skin: No rashes or petechia, no signs of infection. Neurological: Alert and oriented to person, place, and time. Follows all commands. No focal deficits, speech is clear and fluent. Course Vital Signs Vital signs: Vital Signs Temperature 97.8 F 05/23/24 14:48 Pulse Rate 73 05/23/24 14:48 Respirat
[2024-05-23 20:37] LABS: Basophils Absolute Auto 0.1 K/mm3 (0.0-0.1); Basophils Percent Auto 1.3 % (0.2-1.2); Eosinophils Absolute Auto 0.3 K/mm3 (0-0.3); Hematocrit 25.9 % (42.0-52.0); Hemoglobin 8.6 g/dL (14.0-18.0); Immature Granulocyte Absolute 0.02 K/mm3 (0.00-0.031); Immature Granulocyte Percent A 0.3 % (0-0.5); Lymphocytes Absolute Auto 2.54 K/mm3 (0.9-3.2); Lymphocytes Percent Auto 36.7 % (18.3-44.2); Mean Corpuscular HGB Conc 33.2 g/dl (32-36); Mean Corpuscular Hemoglobin 30.7 pg (26-34); Mean Corpuscular Volume 92.5 fl (80-100); Mean Platelet Volume 8.7 fl (7.4-10.4); Monocytes Absolute Auto 0.4 K/mm3 (0.1-0.6); Monocytes Percent Auto 5.5 % (2.6-8.5); Neutrophils Absolute Auto 3.6 K/mm3 (1.3-6.7); Neutrophils Percent Auto 52.2 % (45.5-73.1); Platelet Count Result 211 k/mm3 (150-375); Red Cell Distribution Width 13.9 % (11.5-14.5); White Blood Count 6.9 K/mm3 (4.5-10.0)
[2024-05-23 20:55] LABS: Magnesium 2.2 mg/dL (1.6-2.3)
[2024-05-23 20:56] LABS: Alanine Aminotransferase 10 U/L (6-50); Albumin Level 3.7 g/dL (3.5-5.1); Alkaline Phosphatase 85 U/L (38-126); Anion Gap 10 mmol/L (4-12); Aspartate Amino Transferase 18 U/L (17-59); Bilirubin,Total 0.5 mg/dL (0.2-1.3); Blood Urea Nitrogen 63 mg/dL (9-20); Calcium 8.5 mg/dL (8.4-10.2); Carbon Dioxide 30 mmol/L (22-30); Chloride 100 mmol/L (98-107); Estimated CRCL calculation 17 ml/min; Estimated Glomerular Filt Rate 16; Glucose 124 mg/dL (65-110); Potassium 3.5 mmol/L (3.4-5.0); Sodium 140 mmol/L (137-145)
[2024-05-23 21:18] LABS: Appearance Urine Clear (Clear); Bacteria Urine None Seen /hpf; Bilirubin Urine Negative (Negative); Blood Urine 1+ (Negative); Color Urine Yellow (Yellow); Glucose Urine UA 1+ mg/dL (Negative); Ketones Urine Negative (Negative); Leukocyte Esterase Ur Negative LEU/UL (Negative); Nitrate Urine Negative (Negative); Non Pathogenic Casts 0-2; Protein Urine 4+ mg/dL (Negative); Specific Grav Ur 1.018 (1.001-1.035); Squamous Epithelial Cell Urine None Seen /hpf (Few); Urobilinogen Urine 0.2 mg/dL (<2.0)
[2024-05-23 21:20] LABS: Add Urine Microscopic? YES
[2024-05-23] MEDS: LABETALOL HCL INJ 100 MG/20 ML VIAL 20 MG IV PUSH (21:42)
[2024-05-23] MEDS: LABETALOL HCL INJ 100 MG/20 ML VIAL 40 MG IV PUSH (22:31)
[2024-05-23] MEDS: ACETAMINOPHEN 325 MG TABLET 650 MG PO (22:45)
[2024-05-23] MEDS: OFLOXACIN 0.3% OPHTH SOLN 5 ML BTL 2 DROP RIGHT EYE (22:49)
== END 2024-05-23 23:20 | disposition home or self-care (01) ==
PROVIDERS: Emergency Provider Emergency Medicine; PCP Family Medicine
DX: R51.9 Headache, unspecified (principal); S05.01XA Injury of conjunctiva and corneal abrasion without foreign body, right eye, initial encounter; D32.9 Benign neoplasm of meninges, unspecified; I16.0 Hypertensive urgency; I12.0 Hypertensive chronic kidney disease with stage 5 chronic kidney disease or end stage renal disease; N18.6 End stage renal disease; Z99.2 Dependence on renal dialysis; E11.9 Type 2 diabetes mellitus without complications; X58.XXXA Exposure to other specified factors, initial encounter
CPT/HCPCS: 36415; 70450; 71045; 80053; 81001; 82948; 83735; 85025; 87086; 87088; 96374; 96376; 99284; A9270

== ENCOUNTER 2025-03-03 15:20 | Inpatient (IN) | payer MEDICARE, MEDICAID, SELFPAY ==
[2025-03-03] VITALS (8 sets, daily range): BP systolic 111–135; BP diastolic 63–92; PULSE 65–140; RESP 16; TEMP 36.2–36.3; O2SAT 98–100
--- NOTE | ~2025-03-03 | XR_ITS ---
XR chest 1V portable Ordering provider: Alexis Langston MD History: 69 years Male with . new onset Afib . Comparison: May 23, 2024 FINDINGS: MEDIASTINUM: The cardiac silhouette is not enlarged. Right hilar calcified lymph nodes. LUNGS: No infiltrates, effusions or pneumothorax. Focal opacity seen in the right upper lobe most lik toribio scarring. 3 months follow-up advised to exclude evolving nodule. OTHER: No free air under the diaphragm. IMPRESSION: No acute cardiopulmonary pathology. Reviewed, dictated and finalized at location A.
--- OUTSIDE RECORDS SUMMARY | 2025-03-03 15:23 | XMS_ITS | Encounter Summary ---
Author Organization [facility] Address [facility] [place] [address] Care Team Providers Care Hat Cleaner Name Role Phone Adryan Galarza MD Primary Care Provider [phone] Encounter Details Date Type Department Care Team (Late st Contact Info) Description 02/18/2024 Hospital Follow-up Call [facility] Unit [address] [place] [address] Mica Null RN Social History Tobacco Use Types Packs/Day Years Used Date Smoking Tobacco: Never Smokeless Tobacco: Never Alcohol Use Standard Drinks/Week Comments Not Currently 0 (1 standard drink = 0.6 oz pur e alcohol) [facility] Utilities Answer Date Recorded In the past 12 months has e [employer], gas, oil, or water [employer] threatened to shut off services in your home? No 02/11/2024 Humiliation, Afraid, Rape, and Kick questionnair e Answer Date Recorded Within the last year, have y ou been afraid of your partner or ex-partner? No 02/11/2024 Within the last year, have y ou been humiliated or emotionally abused in other ways by your partner or ex-partner? No Within the last year, have y ou been kicked, hit, slapped, or otherwise physically hurt by your partner or ex-partner? No 02/11/2024 Within the last year, have y ou been raped or forced to have any kind of sexual activity by your partner or ex-partner? No 02/11/2024 Social Connection and Isolation Panel [NHANES] A nswer Date Recorded In a typical week, how many times do you talk on the phone with family, friends, or neighbors? Once a week 02/11/2024 How often do you get togethe r with friends or relatives? Once a week 02/11/2024 How often do you attend orthodox or quaker serv ices? Patient declined 02/11/2024 Do you belong to any clubs o r organizations such as orthodox groups, unions, fraternal or athletic groups, or school groups? Patient declined 02/11/2024 How often do you attend meet ings of the clubs or organizations you belong to? Patient declined 02/11/2024 Are you , , di vorced, , never , or living with a partner? 02/11/2024 AUDIT-C Answer Date Recorded Q1: How often do you have a drink containing alcohol? Never 02/11/2024 Q2: How many drinks containi ng alcohol do you have on a typical day when you are drinking? Patient does not drink Q3: How often do you have si x or more drinks on one occasion? Never 02/11/2024 Overall Financial Resource Strain (CARDIA) Answe r Date Recorded How hard is it for you to pa y for the very basics like food, housing, medical care, and heating? Not very hard 02/11/2024 PHQ-2 Answer Date Recorded Patient Health Questionnaire-2 Score 0 02/02/2024 [facility] - Occupational Stress Questionnaire Answer Date Recorded Do you feel stress - tense, restless, nervous, or anxious, or unable to sleep at night because your mind is troubled all the time - these days? Only a little 02/11/2024 Exercise Vital Sign Answer Date Recorde d On average, how many days pe r week do you engage in moderate to strenuous exercise (like a brisk walk)? 0 days 02/11/2024 On average, how many minutes do you engage in exercise at this level? 0 min 02/11/2024 Hunger Vital Sign Answer Date Recorded Within the past 12 months, y ou worried that your food would run out before you got the money to buy more. Never true 02/11/20 24 Within the past 12 months, t he food you bought just didn't last and you didn't have money to get more. Never true 02/11/2024 PRAPARE - Transportation Answer Date Re corded In the past 12 months, has l ack of transportation kept you from medical appointments or from getting medications? No 01/15 In the past 12 months, has l ack of transportation kept you from meetings, work, or from getting things needed for daily living? No 02/11/2024 Housing Stability Vital Sign Answer Seth e Recorded In the last 12 months, was t here a time when you were not able to pay the mortgage or rent on time? No 02/11/2024 In the last 12 months, how many places have you lived? 1 02/11/2024 In the last 12 months, was t here a time when you did not have a steady place to sleep or slept in a halfway (including now)? No 02/11/2024 Sex and Gender Information Value Date Recorded Sex Assigned at Not on file Legal Sex Male 10:46 PM PHYSICAL THER Gender Identity Not on file Sexual Orientation Not on file documented as of this encounter Functional Status * Are you deaf or do you have serious difficulty hearing Answer Date of Assessment Author Status Yes 02/11/2024 4:00 AM Carmelita Centeno RN Active * Are you blind or do you have serious difficulty seeing, even when wearing glasses? Answer Date of Assessment Author Status No 02/11/2024 4:00 AM Carmelita Centeno RN Active * Do you have serious difficulty walking or climbing stairs? Answer Date of Assessment Author Status Yes 02/11/2024 4:00 AM Carmelita Centeno RN Active * Do you have difficulty dressing or bathing? Answer Date of Assessment Author Status No 02/11/2024 4:00 AM Carmelita Centeno RN Active * Because of a physical, mental, or emotional condition, do you have difficulty doing errands alone such as visiting a doctor's office or shopping? Answer Date of Assessment Author Status Yes 02/11/2024 4:00 AM Carmelita Centeno RN Active documented as of this encounter Mental Status * Because of a physical, mental, or emotional condition, do you have serious difficulty concentrating, remembering, or making decisions? Answer Entry Date Author Status Yes 02/11/2024 4:00 AM CDT Pabiona, Inessa, RN Active documented in this encounter Plan of Treatment Not on file documented as of this encounter Goals Goal Patient Goal Type Associated Problems Recent Progress Patient-Stated? Author Safety Patient/family will have appropriate support at home upon discharge Lifestyle Zenaida Berrios RN documented as of this encounter Visit Diagnoses Not on filedocumented in this encounter Additional Health Concerns Assessment Noted Time PHQ-9 Depression Total Score: 0 12/02/19 23 10:36 AM PHYSICAL THER documented as of this encounter Care Teams Hat Cleaner Relationship Specialty Start Date End Date Adryan Galarza MD PCP - General FAMILY PRACTICE 12/02/21 documented as of this encounter
--- OUTSIDE RECORDS SUMMARY | 2025-03-03 15:23 | XMS_ITS | Clinical Summary ---
Author Organization [place] [address] [facility] Address [address] [place] [address] Care Team Providers Care Legal Billing Clerk Name Role Phone No, Physician Primary Care Provider [phone] Allergies No known active allergies Medications blood glucose strip-disp meter kit Use as directed. 1 kit 12/21/19 21 Active blood glucose diagnostic (glucose blood) strip Use as directed up to four times a day. 100 each 1 12/21/19 21 Active lancets misc Use as directed up to 4 times a day. 100 each 1 12/21/19 21 Active mupirocin (BACTROBAN) 2 % ointment Apply topically daily 22 g 01/09/20 21 Active Additional Information Patient not taking.Reported on 12/16/2022 acetaminophen 500 mg capsule Take 2 capsules (1,000 mg total) by mouth every 6 (six) hours as needed for pain 30 tablet 01/09/20 21 Active cyclobenzaprin e (FLEXERIL) 10 mg tablet Take 1 tablet (10 mg total) by mouth 3 (three) times a day 01/09/20 21 Active Additional Information Patient taking differently:10 mg oralAs needed, Informant: Self, Reported on 04/07/2023 gabapentin (NEURONTIN) 300 mg capsule Take 1 capsule (300 mg total) by mouth nightly 30 capsule 11 01/09/20 21 Active ibuprofen (ADVIL,MOTRIN) 600 mg tablet Take 1 tablet (600 mg total) by mouth 3 (three) times a day as needed for pain 01/09/20 21 Active insulin glargine (LANTUS) 100 unit/mL injectionIndic ations:Diabete s Mellitus Inject 19 Units under the skin nightly 10 mL 01/09/20 21 Active insulin lispro (HumaLOG, ADMELOG) 100 unit/mL injectionIndic ations:Diabete s Mellitus Inject 6 Units under the skin 3 (three) times a day with meals 10 mL 01/09/20 21 Active Additional Information Patient taking differently: 8 Unitssubcutaneous 3 times daily with meals,8 during the day and 24 units during the night pt stated changes were made by primary physician 02/15/2021, Indications: Diabetes Mellitus, Reported on 03/04/2022 multivit minerals-iron- FA-calcium (THERA-M) 9 mg iron-400 mcg tablet Take 1 tablet by mouth daily 01/09/20 21 Active Additional Information Patient not taking.Reported on 12/16/2022 lisinopriL (PRINIVIL,ZEST RIL) 20 mg tablet 04/26/20 21 Active metoprolol tartrate (LOPRESSOR) 50 mg immediate release tablet 1 tablet (50 mg total) 2 (two) times a day Take 1/2 tab BID 04/26/20 21 Active insulin aspart (NovoLOG) 100 unit/mL (3 mL) pen for injection ADMINISTER 8 UNITS UNDER THE SKIN THREE TIMES DAILY BEFORE MEALS 04/22/20 21 Active loperamide (IMODIUM) 2 mg capsule Take 1 capsule (2 mg total) by mouth daily 02/06/20 22 Active Active Problems Problem Noted Date Diagnosed Date Type 2 diabetes mellitus with right diabetic ervin t infection 12/20/2020 Overview (12/20/2020): Added automatically from request for surgery [id number] Non-pressure chronic ulcer o f other part of right foot with other specified severity 12/20/2020 Overview (12/20/2020): Added automatically from request for surgery [id number] Type 2 diabetes mellitus with foot ulcer (CODE) 12/20/2020 Overview (12/20/2020): Added automatically from request for surgery [id number] Diabetic polyneuropathy asso ciated with type 2 diabetes mellitus 12/20/2020 Overview (12/20/2020): Added automatically from request for surgery [id number] Gangrene of foot 12/20/2020 Overview (12/26/2020): Added automatically from request for surgery [id number] Assessment & Plan (01/16/2021 8:31 AM ALUM OPERATOR): - Pt has completed 2 weeks of Ceftriaxone IV from date of R BKA surgery (12/27/20), wounds healing well, no indication of ongoing infection or need for further abx at this time. - Discussed with patient the rational for treatment, culture results, risk of recurrent infection, signs/symptoms of recurrent infection, and to contact ID clinic with any questions or concerns. - Reiterated importance of keeping follow-up with other members of the treatment team and following their recommendations. 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 (CMS/HCC) Impaired functional mobility, balance, gait, and endurance Phantom limb syndrome (CMS/HCC) Amputation stump pain Diabetic foot Surgical History Surgery Date Site/Laterality Comments WRIST SURGERY Left TOE AMPUTATION 12/21/2020 Right Medical History Medical History Date Comments Diabetes mellitus (HCC) Type 2 diabetes mellitus (HCC) Neuropathy Incontinence of urine Incontinence of bowel Social History Tobacco Use Types Packs/Day Years Used Date Smoking Tobacco: Never Smokeless Tobacco: Never Tobacco Cessation:Counseling Given: Not Answered Alcohol Use Standard Drinks/Week Comments Never 0 (1 standard drink = 0.6 oz pur e alcohol) AUDIT-C Answer Date Recorded Q1: How often do you have a drink containing alc ohol? Never 12/21/2020 Average Number of Drinks Not on file 021 Frequency of Binge Drinking Not on file 03/2021 Sex and Gender Information Value Date Recorded Sex Assigned at Not on file Legal Sex Male 5:28 PM ALUM OPERATOR Gender Identity Not on file Sexual Orientation Not on file Obstetrics History Last Filed Vital Signs Vital Sign Reading Time Taken Comments Blood Pressure 145/73 04/07/2023 2:54 PM CDT Pulse 80 04/07/2023 2:54 PM CDT Temperature 36.7 C (98.1 F) 03/04/2022 3:14 PM CDT Respiratory Rate 18 04/07/2023 2:54 PM CDT Oxygen Saturation 97% 01/09/2021 6:05 AM ALUM OPERATOR Inhaled Oxygen Concentration - - Weight 70.5 kg (155 lb 6.4 oz) 04/07/2023 2:54 P M CDT Height 170.2 cm (5' 7 ) 01/09/2023 2:26 PM ALUM OPERATOR Body Mass Index 24.34 01/09/2023 2:26 PM ALUM OPERATOR Plan of Treatment Health Maintenance Due Date Last Done Comments Albumin Creatinine Ratio, Urine 1955 Colon Cancer Screening-Colonoscopy 1957 Depression Screening 1957 Hepatitis C Screening 1957 Prostate Cancer Screening-PSA 1957 eGFR 1957 Dilated Eye Exam 1957 Foot Exam 1957 Hepatitis B Screening 1975 Zoster Vaccine (1 of 2) 2007 Pneumococcal vaccine 65+ (2 of 2 - PCV) 02/14/2015 0 02/14/2014 DTaP/Tdap/Td Vaccine (2 - Td or Tdap) 11/16/201811/2008 Hemoglobin A1C 06/19/2021 12/20/2020, 12/20/2020 Lipid Panel 12/20/2021 12/20/2020, 12/20/2020 Abdominal Aortic Aneurysm (AAA) Screen 2022 Well Visit 65+ 2022 Fall Risk Assessment 04/07/2024 04/07/2023, 01/09/20 21 Influenza Vaccine (Season Ended) 2025 Medical Devices Implanted Type Area Lab Specialist Device Identifier Shelf Expiration Date Model / Serial / Lot Hardware Left: Wrist Procedures Procedure Name Priority Date/Time Associated Diagnosis Comments HEMOGLOBIN A1C STAT 12/20/2020 2:29 PM ALUM OPERATOR LIPID PANEL STAT 12/20/2020 2:[address] ABDOMEN PELVIS WO CONTRAST Routine 08/11/2013 12:00 AM CDT from Last 3 Months or Most Recently Relevant to Health Maintenance Results * (ABNORMAL) Hemoglobin A1c (12/20/2020 2:29 PM ALUM OPERATOR) Hgb A1C 11.9(H) 4.0 - 5.6 % [facility] Estimated Average Glucose 295 mg/dL [facility] Comment: The ADA recommends reporting an estimated Average Glucose (eAG) with all Hemoglobin A1c results using the equation derived from a study of 507 normal and diabetic adults. Minority populations were underrepresented and children were not included. (Diabetes Care 31:5479-5596, 2008). The eAG is not equivalent to a fasting glucose. Blood specimen (specimen) 12/20/2020 2:29 PM ALUM OPERATOR 12/20/2020 2:52 PM ALUM OPERATOR us Gabino Rodriguez MD LAB BLOOD ORDERABLES Final Re sult [facility] [place] [address] * (ABNORMAL) Lipid panel (12/20/2020 2:29 PM ALUM OPERATOR) Cholesterol 73 30 - 199 mg/dL [facility] Comment: Interpretive Data Ages < or = 19 years Acceptable: <170 mg/dL Borderline high: 170-199 mg/dL High: >or= 200 mg/dL Ages > or = 20 years Desirable: <200 mg/dL Borderline high: 200-239 mg/dL High: >or= 240 mg/dL Literature References: 1. Expert Panel on Integrated Guidelines for Cardiovascular Health and Risk Reduction in Children and Adolescents. Pediatrics 2011;128:S213 2. NCEP Expert Panel. Circulation 2004;110:227 Current Interpretive Data was last revised on 2018. Triglycerides 72 <=149 mg/dL [facility] Comment: Interpretive Data Ages < or = 9 years Acceptable: <75 mg/dL Borderline high: 75-99 mg/dL High: >or= 100 mg/dL Ages 10 to 20 years Acceptable: <90 mg/dL Borderline high: 90-129 mg/dL High: >or= 130 mg/dL Ages > or = 20 years Desirable: <150 mg/dL Borderline high: 150-199 mg/dL High: 200-499 mg/dL Very high: >or= 499 mg/dL Literature References: 1. Expert Panel on Integrated Guidelines for Cardiovascular Health and Risk Reduction in Children and Adolescents. Pediatrics 2011;128:S213 2. NCEP Expert Panel. Circulation 2004;110:227 Current Interpretive Data was last revised on 2018. HDL 25(L) >=40 mg/dL [facility] Comment: Interpretive Data Ages < or = 19 years Acceptable: >45 mg/dL Borderline low: 40-45 mg/dL Low: <40 mg/dL Ages > or = 20 years Desirable: >or= 60 mg/dL Low: <40 mg/dL Literature References: 1. Expert Panel on Integrated Guidelines for Cardiovascular Health and Risk Reduction in Children and Adolescents. Pediatrics 2011;128:S213 2. NCEP Expert Panel. Circulation 2004;110:227 Current Interpretive Data was last revised on 2018. LDL, calculated 34 <=129 mg/dL [facility] Comment: Interpretive Data Ages < or = 19 years Acceptable: <110 mg/dL Borderline high: 110-129 mg/dL High: >or= 130 mg/dL Ages > or = 20 years Optimal: <100 mg/dL Near optimal: 100-129 mg/dL Borderline high: 130-159 mg/dL High: >160 mg/dL Literature References: 1. Expert Panel on Integrated Guidelines for Cardiovascular Health and Risk Reduction in Children and Adolescents. Pediatrics 2011;128:S213 2. NCEP Expert Panel. Circulation 2004;110:227 Current Interpretive Data was last revised on 2018. Non-HDL Cholesterol 48 mg/dL [facility] Comment: Interpretive Data Ages < or = 19 years Acceptable: <120 mg/dL Borderline high: 120-144 mg/dL High: >145 mg/dL Ages > or = 20 years When triglycerides are >200 mg/dL, Non-HDL cholesterol is a secondary target of therapy with treatment goals that are 30 mg/dL greater than the LDL cholesterol target. Literature References: 1. Expert Panel on Integrated Guidelines for Cardiovascular Health and Risk Reduction in Children and Adolescents. Pediatrics 2011;128:S213 2. NCEP Expert Panel. Circulation 2004;110:227 Current Interpretive Data was last revised on 2018. Chol/HDL ratio 3 [facility] Blood specimen (specimen) 12/20/2020 2:29 PM ALUM OPERATOR 12/20/2020 2:49 PM ALUM OPERATOR us Gabino Rodriguez MD LAB BLOOD ORDERABLES Edited R esult - Final [facility] Department [place] [address] * CT Abdomen Pelvis WO Contrast (08/11/2013 12:00 AM CDT) Anatomical Region Laterality Modality Body N/A Computed Tomogra phy 08/11/2013 Impressions 08/11/2013 8:05 PM CDT 1. No acute inflammatory change of the abdomen or pelvis. No bowel obstruction or inflammatory change of bowel. 2. No nephrolithiasis or hydronephrosis. 3. Diverticuli are seen in the sigmoid colon and descending colon. No acute diverticulitis. 4. Small fat containing inguinal hernia defect on the right. 5. Again seen is wedging of the T12 vertebral body and moderate multilevel degenerative change of the lower thoracic spine and L5-S1 minimally more prominent than the older exam. 6. No definite etiology of left flank pain by CT. THIS IS AN ELECTRONICALLY VERIFIED REPORT 08/11/2013 8:01 PM: Jose Antonio Cody M.D. Jose Antonio Cody M.D. MJ:yoshi 08:01 PM 08:01 PM [facility] [EOD] Narrative 08/11/2013 8:05 PM CDT EXAMINATION: CT abdomen and pelvis without IV contrast HISTORY: Left flank pain COMPARISON: 08/04/2005 TECHNIQUE: CT images of the abdomen and pelvis were obtained without IV contrast. FINDINGS: Limited view through the base of lungs demonstrates no infiltrate or effusion. Given limitations without IV contrast, the liver demonstrates no suspicious lesion. Gallbladder, pancreas, adrenal glands and kidneys are unremarkable. No nephrolithiasis, hydronephrosis or ureteral stone. Granulomas change of the spleen is seen. Abdominal aorta demonstrates no aneurysmal dilatation. No adenopathy by size criteria. There is no inflammatory change of bowel. No obstruction. Diverticuli are seen in the descending colon and more prominently of the sigmoid colon. No diverticulitis. Pelvic structures demonstrate no free fluid or inflammatory change. Bladder appears normal. Fat extends through the right inguinal hernia defect. No herniation of bowel. Mild thickening of the rectum unchanged from the 2005 exam. This may reflect nondistention with contrast or more chronic inflammatory change. Again, no change from 2005 implies benign finding. Osseous structures demonstrate wedging of 80 12 vertebral body. This is minimally more prominent on the older exam. Moderate degenerate endplate changes seen in the visualized lower thoracic spine. Moderate degenerative change L5-S1. Procedure Note Provider, MD Doc - 04/02/2021 EXAMINATION: CT abdomen and pelvis without IV contrast HISTORY: Left flank pain COMPARISON: 08/04/2005 TECHNIQUE: CT images of the abdomen and pelvis were obtained without IV contrast. FINDINGS: Limited view through the base of lungs demonstrates noinfiltrate or effusion. Given limitations without IV contrast, the liverdemonstrates no suspicious lesion. Gallbladder, pancreas, adrenal glands and kidneys are unremarkable. No nephrolithiasis, hydronephrosis or ureteral stone. Granulomas change of the spleen is seen. Abdominal aorta demonstrates no aneurysmal dilatation. No adenopathy by size criteria. There is no inflammatory change of bowel. No obstruction. Diverticuli are seen in the descending colon and more prominently of the sigmoid colon. No diverticulitis. Pelvic structures demonstrate no free fluid or inflammatory change.Bladder appears normal. Fat extends through the right inguinal hernia defect. No herniation of bowel. Mild thickening of the rectum unchanged from [id number] exam. This may reflect nondistention with contrast or more chronic inflammatory change. Again, no change from 2005 implies benign finding. Osseous structures demonstrate wedging of 80 12 vertebral body. This is minimally more prominent on the older exam. Moderate degenerate endplate changes seen in the visualized lower thoracic spine. Moderatedegenerative change L5-S1. IMPRESSION: 1. No acute inflammatory change of the abdomen or pelvis. No bowel obstruction or inflammatory change of bowel. 2. No nephrolithiasis or hydronephrosis. 3. Diverticuli are seen in the sigmoid colon and descending colon. Noacute diverticulitis. 4. Small fat containing inguinal hernia defect on the right. 5. Again seen is wedging of the T12 vertebral body and moderate multilevel degenerative change of the lower thoracic spine and L5-S1 minimally more prominent than the older exam. 6. No definite etiology of left flank pain by CT. THIS IS AN ELECTRONICALLY VERIFIED REPORT 08/11/2013 8:01 PM: Jose Antonio Cody M.D. Jose Antonio Cody M.D. MJ:yoshi 08:01 PM 08:01 PM [facility] [EOD] us Historical Provider MD PALM CT PROCEDURES Final R esult from Last 3 Months or Most Recently Relevant to Health Maintenance Insurance [facility] MEDICARE [facility] MEDICARE CHOICE PRF PPO PR [place] ACCESS CHOICE PR MEDICARE IDPA BL CHOICE PRF PPO PR Advance Directives For more information, please contact: [phone] Documents on File Type Date Recorded Patient Measurement Technician Expl anation ADVANCE DIRECTIVE 02/17/2021 8:14 PM Power of Steel Molder-Medical ADVANCE DIRECTIVE 01/08/2021 1:22 AM Power of Steel Molder-Medical ADVANCE DIRECTIVE 01/08/2021 1:21 AM Power of Steel Molder-Financial/Medical * Full Code (Latest Code Status on File) Date Activated Date Inactivated Comments 12/20/2020 11:43 PM 01/09/2021 3:30 PM Care Teams Legal Billing Clerk Relationship Specialty Start Date End Date No, Physician PCP - General 01/09/21
--- OUTSIDE RECORDS SUMMARY | 2025-03-03 15:23 | XMS_ITS | Clinical Summary ---
Author Organization [facility] Address [address] [place] [address] Care Team Providers Care Labor Representative Name Role Phone Adryan Galarza MD Primary Care Provider [phone] Allergies No known active allergies Medications Blood Gluc Meter Disp-Strips (SIDEKICK) Device see administration instructions. 1 Active cyclobenzaprin e 10 MG tablet Take 1 tablet (10 mg total) by mouth 3 (three) times daily as needed. 1 Active Glucose Blood ([employer] BLOOD GLUCOSE TEST) test strip 1 Active metoprolol tartrate (LOPRESSOR) 50 MG tablet Take 1 tablet (50 mg total) by mouth once. Now taking a whole tab mg 2 Active tamsulosin (FLOMAX) 0.4 MG Cap Take 1 capsule (0.4 mg total) by mouth daily. 30 capsule 1 2 Active ferrous sulfate EC 324 (65 Fe) MG tabletIndicati ons:Anemia TAKE 1 TABLET BY MOUTH WITH BREAKFAST 30 tablet 6 3 Active aspirin EC (ECOTRIN) 81 MG tabletIndicati ons:CKD (chronic kidney disease) stage 5, GFR less than 15 ml/min ([facility]/HCC HHS/HCC) Take 1 tablet (81 mg total) by mouth daily. 4 Active epoetin charlie-epbx (RETACRIT) 31462 Units/mL injectionIndic ations:Anemia in stage 4 chronic kidney disease (CMS/HCC HHS/HCC) Inject 1 mL (10,000 Units total) into the skin every 28 days. 4 mL 4 4 Active vitamin D2, ergocalciferol , (DRISDOL) 1.25 mg capsuleIndicat ions:Vitamin D deficiency take 1 capsule by mouth once weekly 12 capsule 3 4 Active Active Problems Problem Noted Date Diagnosed Date Acute on chronic renal failure 02/11/2024 Urinary retention 12/02/2022 Hyperkalemia 10/30/2022 Acute renal failure (ARF) 10/17/2022 Albuminuria 02/17/2022 CKD (chronic kidney disease) stage 4, GFR 15-29 ml/min ([facility]) 12/02/2021 Primary hypertension 12/02/2021 Type 2 diabetes mellitus wit h diabetic nephropathy, with long-term current use of insulin ([facility]) 12/02/2021 Family History Medical History Relation Comments Diabetes Maternal Grandmother Cancer Mother Diabetes Paternal Grandmother Relation Status Comments Maternal Grandmother Mother Paternal Grandmother Social History Tobacco Use Types Packs/Day Years Used Date Smoking Tobacco: Never Smokeless Tobacco: Never Tobacco Cessation:Counseling Given: No Alcohol Use Standard Drinks/Week Comments Not Currently 0 (1 standard drink = 0.6 oz pur e alcohol) [facility] [employer] Answer Date Recorded In the past 12 months has e [employer], gas, oil, or water [employer] threatened to shut off services in your [...] week 02/11/2024 How often do you attend uatsdin or baptist serv ices? Patient declined 02/11/2024 Do you belong to any clubs o r organizations such as uatsdin groups, unions, fraternal or athletic groups, or [...] Recorded Patient Health Questionnaire-2 Score 0 02/02/2024 [facility] of Occupat ional [facility] - Occupational Stress Questionnaire Answer Date Recorded [...] place to sleep or slept in a intermediate (including now)? No 02/11/2024 Sex and Gender Information Value Date Recorded Sex Assigned at Not on file Legal Sex Male 10:46 PM PLANE CAPTAIN Gender Identity Not on file Sexual Orientation Not on file Last Filed Vital Signs Vital Sign Reading Time Taken Comments Blood Pressure 185/64 02/16/2024 12:06 PM CDT Pulse 76 02/16/2024 12:06 PM CDT Temperature 36.9 C (98.4 F) 02/16/2024 12:06 PM CDT Respiratory Rate 19 02/16/2024 12:06 PM CDT Oxygen Saturation 98% 02/16/2024 12:06 PM CDT Inhaled Oxygen Concentration - - Weight 71.7 kg (158 lb 1.1 oz) 02/15/2024 6:20 A M CDT Height 170 cm (5' 6.93 ) 02/11/2024 3:39 AM CDT Body Mass Index 24.81 02/11/2024 3:39 AM CDT Plan of Treatment Health Maintenance Due Date Last Done Comments Colorectal Cancer Screening Colonoscopy (10 Years) 1957 Lipid Panel 1957 Pneumococcal Vaccine: 50+ Years (1 of 2 - PCV) 1963 Diabetes: Retinopathy Eye Exam 1975 Hepatitis C 1975 DTaP, Tdap and Td Vaccines (1 - Tdap) 1976 Zoster Vaccines (1 of 2) 2007 RSV Immunization or 60+ Years (1 - Risk 60-74 years 1-dose series) 2017 Annual Medicare Wellness Visit 2022 Hemoglobin A1C 05/23/2024 11/23/2023, 03/16, 11/02/2021, Additional history exists COVID-19 Vaccine ( season) 2024 PHQ-2 (Physician [place]) 11/16/2024 02/02/2024 Meningococcal B Vaccine Aged Out No l onger eligible based on patient's age to complete this topic Meningococcal Vaccine Aged Out No jerry audra eligible based on patient's age to complete this topic RSV Immunizations Under 20 Months Aged Out No longer eligible based on patient's age to complete this topic Goals Goal Patient Goal Type Associated Problems Recent Progress Patient-Stated? Author Safety Patient/family will have appropriate support at home upon discharge Lifestyle Zenaida Berrios RN Procedures Procedure Name Priority Date/Time Associated Diagnosis Comments HEMOGLOBIN, GLYCOSYLATED Routine 11/23/2023 8:[address] CAPTAIN from Last 3 Months or Most Recently Relevant to Health Maintenance Results * HEMOGLOBIN, GLYCOSYLATED (11/23/2023 8:[address] CAPTAIN) HGB A1C 5.5 <5.7 % of total Hgb [facility] Comment: For the purpose of screening for the presence of diabetes: <5.7% Consistent with the absence of diabetes 5.7-6.4% Consistent with increased risk for diabetes (prediabetes) > or =6.5% Consistent with diabetes This assay result is consistent with a decreased risk of diabetes. Currently, no consensus exists regarding use of hemoglobin A1c for diagnosis of diabetes in children. According to [place] Diabetes Association (ADA) guidelines, hemoglobin A1c <7.0% represents optimal control in non- diabetic patients. Different metrics may apply to specific patient populations. Standards of Medical Care in Diabetes(ADA). HbA1c performed on [employer] platform. 11/23/2023 8:[address] CAPTAIN 11/23/2023 8:[address] CAPTAIN Narrative Resulting Agency Comment Performing Organization Information: Site ID: BI Name: [facility] Address: [address] [place] [address] [id number] Director: Azeb Ortiz MD us Radhames Cardenas MD LABORATORY Final Result [facility] [address] [place] [address], from Last 3 Months or Most Recently Relevant to Health Maintenance Insurance MEDICAID MEDICARE MEDICAID Advance Directives * Full Code (Latest Code Status on File) Date Activated Date Inactivated Comments 02/11/2024 4:45 AM 02/16/2024 3:45 PM * Full Code Date Activated Date Inactivated Comments 10/17/2022 4:39 PM 10/22/2022 6:32 PM Care Teams Labor Representative Relationship Specialty Start Date End Date Adryan Galarza MD PCP - General FAMILY PRACTICE 12/02/21
--- OUTSIDE RECORDS SUMMARY | 2025-03-03 15:23 | XMS_ITS ---
Author Organization [facility] Care Team Providers Care Hospital Insurance Representative Name Role Phone Adryan Galarza Unavailable Unavailable Allergies and adverse reactions No Known Allergies Care Team Name Role Address Phone Organization Dates Adryan Galarza PCP [address] [place], [address], [place] (Office): : : : [facility] 01/09/2021 - 01/15/2021 Immunizations Immunization Status Vaccine Details Vaccine Code CodeSystem Date Notes Influenza cancelled Influenza, high-dose, split virus, quadrivalent, injectable, preservative free 197 CVX created date: 01/11/2021 consent date: 01/11/2021 Hepatitis B cancelled hepatitis B vaccine, adult dosage 43 CVX created date: 01/11/2021 consent date: 01/11/2021 TB 1 Step Mantoux (PPD) completed tuberculin skin test; unspecified formulation lotNumber: [id number] expiry: 06/12/2022 Mfg: [email or web address] Given Left Forearm 98 CVX created date: 01/10/2021 consent date: 01/09/2021 administer ed date: 01/09/2021 Prevnar 13 cancelled pneumococcal conjugate vaccine, 13 valent 133 CVX created date: 01/11/2021 consent date: 01/11/2021 Pneumococcal polysaccharide vaccine (PPSV23) cancelled pneumococcal polysaccharide vaccine, 23 valent 33 CVX created date: 01/11/2021 consent date: 01/11/2021 Shingrix 1 cancelled zoster vaccine recombinant 187 CVX created date: 01/11/2021 consent date: 01/11/2021 Shingrix 2 cancelled zoster vaccine recombinant 187 CVX created date: 01/11/2021 consent date: 01/11/2021 COVID Pre-Vaccine Consent cancelled created date: 01/11/2021 consent date: 01/11/2021 Mental Status Section Date Assessment Total Score Description 01/14/2021 CAM 0 No delirium ind icated 01/14/2021 BIMS 12 moderate cognit britney impairment CAM 0 No delirium ind icated PHQ-9 06 mild depression Problems Problem # Description Date of onset Resolved Date Code CodeSystem Concern Status 1 ACQUIRED ABSENCE OF RIGHT LEG BELOW KNEE 01/10/[address] active 2 DIFFICULTY IN WALKING, NOT ELSEWHERE CLASSIFIED 01/10/[address] active 3 MUSCLE WASTING AND ATROPHY, NOT ELSEWHERE CLASSIFIED, UNSPECIFIED SITE 01/09/[address] active 4 NEED FOR ASSISTANCE WITH PERSONAL CARE 01/09/[address] active 5 NON-PRESSURE CHRONIC ULCER OF LEFT ANKLE WITH UNSPECIFIED SEVERITY 01/09/[address] active 6 SPINAL STENOSIS, THORACIC REGION 01/09/[address] active 7 TYPE 2 DIABETES MELLITUS WITH DIABETIC POLYNEUROPATHY 01/09/[address] active 8 TYPE 2 DIABETES MELLITUS WITH FOOT ULCER 01/09/[address] active Reason for Referral No Reasons for Referral Entered Social History Social History Observation Description Start Date End Date Code Code System Current Smoking Status Tobacco smoking consumption unknown 582442272 SNOMED CT Sex Assigned At Male 1955 32468-4 [facility] Vital Signs Code Code System Vitals Name Values and Units Timing Information 8310-5 [facility] Body Temperature Value=97.7 Units= F 01/15/2021 12555-4 [facility] O2 % BldC Oximetry Value=95.0 Units= % 01/15/2021 8462-4 [facility] Blood Pressure-Diastolic Value=75 Un its=mmHg 01/14/2021 8480-6 [facility] Blood Pressure-Systolic Pgmwk=887 Un its=mmHg 01/14/2021 8867-4 [facility] Heart rate Value=66.0 Units=/min 11/2020 9279-1 [facility] Respiratory Rate Value=18.0 Units=/m in 01/14/2021 2339-0 [facility] Blood Sugar Lvmzr=201.0 Units=mg/dL 01/14/2021 38772-6 [facility] Weight Yqwfo=043.0 Units=Lbs 8302-2 [facility] Height Value=67.0 Units=Inches 01/09/2021
--- OUTSIDE RECORDS SUMMARY | 2025-03-03 15:23 | XMS_ITS | Referral Summary ---
Author Organization [facility] [address] [facility] Address [address] [place] [address] Care Team Providers Care Medical Imaging Technologist Name Role Phone No, Physician Primary Care Provider [phone] Allergies No known active allergies Medications blood [...] (12/20/2020): Added automatically from request for surgery [id number] Non-pressure chronic ulcer o f other part of right foot with other specified severity 12/20/2020 Overview (12/20/2020): Added automatically from request for surgery [id number] Type 2 diabetes mellitus with foot ulcer (CODE) 12/20/2020 Overview (12/20/2020): Added automatically from request for surgery [id number] Diabetic polyneuropathy asso ciated with type 2 diabetes mellitus 12/20/2020 Overview (12/20/2020): Added automatically from request for surgery [id number] Gangrene of foot 12/20/2020 Overview (12/26/2020): Added automatically from request for surgery [id number] Assessment & Plan (01/16/2021 8:31 AM FOOD CLERK): - Pt has completed 2 weeks of [...] syndrome (CMS/HCC) Amputation stump pain Diabetic foot Social History Tobacco Use Types Packs/Day Years [...] on file Legal Sex Male 5:28 PM FOOD CLERK Gender Identity Not on file Sexual Orientation Not on file Last Filed Vital Signs Vital Sign Reading Time Taken Comments Blood Pressure 145/73 04/07/2023 2:54 PM CDT Pulse 80 04/07/2023 2:54 PM CDT Temperature 36.7 C (98.1 F) 03/04/2022 3:14 PM CDT Respiratory Rate 18 04/07/2023 2:54 PM CDT Oxygen Saturation 97% 01/09/2021 6:05 AM FOOD CLERK Inhaled Oxygen Concentration - - Weight 70.5 kg (155 lb 6.4 oz) 04/07/2023 2:54 P M CDT Height 170.2 cm (5' 7 ) 01/09/2023 2:26 PM FOOD CLERK Body Mass Index 24.34 01/09/2023 2:26 PM FOOD CLERK Plan of Treatment Not on file Medical Devices Implanted Type Area Recruiting Assistant Device Identifier Shelf Expiration Date Model / Serial / Lot Hardware Left: Wrist Procedures Procedure Name Priority Date/Time Associated Diagnosis Comments HEMOGLOBIN A1C STAT 12/20/2020 2:29 PM FOOD CLERK LIPID PANEL STAT 12/20/2020 2:[address] ABDOMEN PELVIS WO CONTRAST Routine 08/11/2013 12:00 AM CDT from Last 3 Months or Most Recently Relevant to Health Maintenance Results * (ABNORMAL) Hemoglobin A1c (12/20/2020 2:29 PM FOOD CLERK) Hgb A1C 11.9(H) 4.0 - 5.6 % [facility] Estimated Average Glucose 295 mg/dL [facility] Comment: The ADA recommends reporting an estimated Average Glucose (eAG) with all Hemoglobin A1c results using the equation derived from a study of 507 normal and diabetic adults. Minority populations were underrepresented and children were not included. (Diabetes Care 31:4530-4006, 2008). The eAG is not equivalent to a fasting glucose. Blood specimen (specimen) 12/20/2020 2:29 PM FOOD CLERK 12/20/2020 2:52 PM FOOD CLERK us Gabino Rodriguez MD LAB BLOOD ORDERABLES Final Re sult [facility] [place] [address] * (ABNORMAL) Lipid panel (12/20/2020 2:29 PM FOOD CLERK) Cholesterol 73 30 - 199 mg/dL [facility] Comment: Interpretive Data Ages < or = [...] revised on 2018. Triglycerides 72 <=149 mg/dL [facility] Comment: Interpretive Data Ages < or = [...] revised on 2018. HDL 25(L) >=40 mg/dL [facility] Comment: Interpretive Data Ages < or = 19 years Acceptable: >45 mg/dL Borderline low: 40-45 mg/dL Low: <40 mg/dL Ages > or = 20 years Desirable: >or= 60 mg/dL Low: <40 mg/dL Literature References: 1. Expert Panel on Integrated Guidelines for Cardiovascular Health and Risk Reduction in Children and Adolescents. Pediatrics 2011;128:S213 2. NCEP Expert Panel. Circulation 2003;110:227 Current Interpretive Data was last revised on 2018. LDL, calculated 34 <=129 mg/dL [facility] Comment: Interpretive Data Ages < or = [...] revised on 2018. Non-HDL Cholesterol 48 mg/dL [facility] Comment: Interpretive Data Ages < or = [...] last revised on 2018. Chol/HDL ratio 3 [facility] Blood specimen (specimen) 12/20/2020 2:29 PM FOOD CLERK 12/20/2020 2:49 PM FOOD CLERK us Gabino Rodriguez MD LAB BLOOD ORDERABLES Edited R esult - Final [facility] [place] [address] * CT Abdomen Pelvis WO Contrast (08/11/2013 [...] Cody M.D. MJ:yoshi 08:01 PM 08:01 PM [facility] [EOD] Narrative 08/11/2013 8:05 PM CDT EXAMINATION: [...] Mild thickening of the rectum unchanged from [id number] exam. This may reflect nondistention with contrast [...] Cody M.D. MJ:yoshi 08:01 PM 08:01 PM [facility] [EOD] us Historical Provider MD PALM CT PROCEDURES Final R esult from Last 3 Months or Most Recently Relevant to Health Maintenance Insurance IDPA MEDICARE [facility] MEDICARE BL CHOICE PRF PPO [place] BLUE ACCESS CHOICE [place] MEDICARE IDPA BL CHOICE PRF PPO [place] Advance Directives For more information, please contact: [phone] Documents on File Type Date Recorded Patient Director Of Customer Service Expl anation ADVANCE DIRECTIVE 02/17/2021 8:14 PM Power of Wet Sander-Medical ADVANCE DIRECTIVE 01/08/2021 1:22 AM Power of Wet Sander-Medical ADVANCE DIRECTIVE 01/08/2021 1:21 AM Power of Wet Sander-Financial/Medical * Full Code (Latest Code Status on File) Date Activated Date Inactivated Comments 12/20/2020 11:43 PM 01/09/2021 3:30 PM Care Teams Medical Imaging Technologist Relationship Specialty Start Date End Date No, Physician PCP - General 01/09/21
--- OUTSIDE RECORDS SUMMARY | 2025-03-03 15:23 | XMS_ITS | Encounter Summary ---
Author Organization [facility] Address [address] [place] [address] Care Team Providers Care Windsurfing Instructor Name Role Phone Adryan Galarza MD Primary Care Provider [phone] Encounter Details Date Type Department Care Team (Late st Contact Info) Description 04/23/2019 Abstract [facility] CONVERSION [address] [place] [address] , Generic Conversion, Social History Tobacco Use Types Packs/Day Years Used Date Smoking Tobacco: Never Assessed Sex and Gender Information Value Date Recorded Sex Assigned at Not on file Legal Sex Male 10:46 PM TDP DISPLAYS ANALYST Gender Identity Not on file Sexual Orientation Not on file documented as of this encounter Plan of Treatment Not on file documented as of this encounter Visit Diagnoses Not on filedocumented in this encounter Care Teams Windsurfing Instructor Relationship Specialty Start Date End Date Adryan Galarza MD PCP - General FAMILY PRACTICE 12/02/21 documented as of this encounter
--- NOTE | 2025-03-03 15:30 | ECG_ITS ---
Test Date: 2025-03-03 15:36:03 Measurements Intervals [place] Rate: 157 P: 0 [place]: 0 QRS: -19 QRSD: 97 T: 75 QT: 280 QTc: 454 Interpretive Statements ATRIAL FIBRILLATION WITH RAPID VENTRICULAR RESPONSE DELAYED PRECORDIAL R/S TRANSITION BASELINE ARTIFACT- I, III, AVR, AVL, AVF ABNORMAL ECG Compared to ECG 05/15/2024 08:58:37 Sinus rhythm no longer present Electronically Signed On 03-03-2025 15:51:03 CDT by Nilson Jerez D.O.
[2025-03-03] MEDS: dilTIAZem HCl INJ 25 MG/5 ML VIAL 10 MG IV PUSH ×2 (16:00→16:32)
[2025-03-03 16:05] LABS: Basophils Percent Auto 0.5 % (0.2-1.2); Eosinophils Percent Auto 0.4 % (0-4.4); Hematocrit 31.5 % (42.0-52.0); Hemoglobin 10.6 g/dL (14.0-18.0); Immature Granulocyte Absolute 0.02 K/mm3 (0.00-0.031); Immature Granulocyte Percent A 0.2 % (0-0.5); Lymphocytes Absolute Auto 3.44 K/mm3 (0.9-3.2); Lymphocytes Percent Auto 41.2 % (18.3-44.2); Mean Corpuscular HGB Conc 33.7 g/dl (32-36); Mean Corpuscular Hemoglobin 31.5 pg (26-34); Mean Corpuscular Volume 93.8 fl (80-100); Mean Platelet Volume 9.3 fl (7.4-10.4); Monocytes Absolute Auto 0.5 K/mm3 (0.1-0.6); Monocytes Percent Auto 5.8 % (2.6-8.5); Neutrophils Absolute Auto 4.3 K/mm3 (1.3-6.7); Neutrophils Percent Auto 51.9 % (45.5-73.1); Platelet Count Result 138 k/mm3 (150-375); Red Blood Count 3.36 M/mm3 (4.6-6.20); Red Cell Distribution Width 13.6 % (11.5-14.5); White Blood Count 8.3 K/mm3 (4.5-10.0)
--- OUTSIDE RECORDS SUMMARY | 2025-03-03 16:19 | XMS_ITS | Encounter Summary ---
Author Organization [facility] Address [address] [place] [address] Care Team Providers Care Spinner Concrete Pipe Name Role Phone Adryan Galarza MD Primary Care Provider Encounter Details Date Type Department Care Team (Late st Contact Info) Description 04/23/2019 Abstract [facility] CONVERSION [address] [place] [address] , Generic Conversion, Social History Tobacco Use Types Packs/Day Years Used Date Smoking Tobacco: Never Assessed Sex and Gender Information Value Date Recorded Sex Assigned at Not on file Legal Sex Male 10:46 PM HOSPICE REGISTERED NURSE Gender Identity Not on file Sexual Orientation Not on file documented as of this encounter Plan of Treatment Not on file documented as of this encounter Visit Diagnoses Not on filedocumented in this encounter Care Teams Spinner Concrete Pipe Relationship Specialty Start Date End Date Adryan Galarza MD PCP - General FAMILY PRACTICE 12/02/21 documented as of this encounter
--- OUTSIDE RECORDS SUMMARY | 2025-03-03 16:19 | XMS_ITS ---
Author Organization [facility] Care Team Providers Care Information Services Vice President Name Role Phone Adryan Galarza Unavailable Unavailable Allergies and adverse reactions No Known Allergies Care Team Name Role Address Phone Organization Dates Adryan Galarza PCP [address] [place], [address], [place] (Office[place] : : : [facility] 01/09/2021 - 01/15/2021 Immunizations Immunization Status Vaccine Details Vaccine Code CodeSystem Date Notes Influenza cancelled Influenza, high-dose, split virus, quadrivalent, injectable, preservative free 197 CVX created date: 01/11/2021 consent date: 01/11/2021 Hepatitis B cancelled hepatitis B vaccine, adult dosage 43 CVX created date: 01/11/2021 consent date: 01/11/2021 TB 1 Step Mantoux (PPD) completed tuberculin skin test; unspecified formulation lotNumber: [id number] expiry: 06/12/2022 Mfg: [email or web address] Given Left Forearm [...] OF RIGHT LEG BELOW KNEE 01/10/[address] active 2 DIFFICULTY IN WALKING, NOT ELSEWHERE CLASSIFIED 01/10/[address] active 3 MUSCLE WASTING AND ATROPHY, NOT ELSEWHERE CLASSIFIED, UNSPECIFIED SITE 01/09/[address] active 4 NEED FOR ASSISTANCE WITH PERSONAL CARE 01/09/[address] active 5 NON-PRESSURE CHRONIC ULCER OF LEFT ANKLE WITH UNSPECIFIED SEVERITY 01/09/[address] active 6 SPINAL STENOSIS, THORACIC REGION 01/09/[address] active 7 TYPE 2 DIABETES MELLITUS WITH DIABETIC POLYNEUROPATHY 01/09/[address] active 8 TYPE 2 DIABETES MELLITUS WITH FOOT ULCER 01/09/[address] active Reason for Referral No Reasons for Referral Entered Social History Social History Observation Description Start Date End Date Code Code System Current Smoking Status Tobacco smoking consumption unknown 795506946 SNOMED CT Sex Assigned At Male 1955 34355-9 [facility] Vital Signs Code Code System Vitals Name Values and Units Timing Information 8310-5 [facility] Body Temperature Value=97.7 Units= F 01/15/2021 04747-6 [facility] O2 % BldC Oximetry Value=95.0 Units= % 01/15/2021 8462-4 [facility] Blood Pressure-Diastolic Value=75 Un its=mmHg 01/14/2021 8480-6 [facility] Blood Pressure-Systolic Kjxbw=457 Un its=mmHg 01/14/2021 8867-4 [facility] Heart rate Value=66.0 Units=/min 11/2020 9279-1 [facility] Respiratory Rate Value=18.0 Units=/m in 01/14/2021 2339-0 [facility] Blood Sugar Tcxct=869.0 Units=mg/dL 01/14/2021 55513-4 [facility] Weight Zqhqx=785.0 Units=Lbs 8302-2 [facility] Height Value=67.0 Units=Inches 01/09/2021
--- OUTSIDE RECORDS SUMMARY | 2025-03-03 16:19 | XMS_ITS | Referral Summary ---
Author Organization [facility] [address] [facility] Address [address] [place] [address] Care Team Providers Care Diet Aid Name Role Phone No, Physician Primary Care Provider [phone] Allergies No known active allergies Medications blood [...] (12/20/2020): Added automatically from request for surgery [id number] Non-pressure chronic ulcer o f other part of right foot with other specified severity 12/20/2020 Overview (12/20/2020): Added automatically from request for surgery [id number] Type 2 diabetes mellitus with foot ulcer (CODE) 12/20/2020 Overview (12/20/2020): Added automatically from request for surgery [id number] Diabetic polyneuropathy asso ciated with type 2 diabetes mellitus 12/20/2020 Overview (12/20/2020): Added automatically from request for surgery [id number] Gangrene of foot 12/20/2020 Overview (12/26/2020): Added automatically from request for surgery [id number] Assessment & Plan (01/16/2021 8:31 AM SIMPLEX PRINTER INSTALLER): - Pt has completed 2 weeks of [...] on file Legal Sex Male 5:28 PM SIMPLEX PRINTER INSTALLER Gender Identity Not on file Sexual Orientation Not on file Last Filed Vital Signs Vital Sign Reading Time Taken Comments Blood Pressure 145/73 04/07/2023 2:54 PM CDT Pulse 80 04/07/2023 2:54 PM CDT Temperature 36.7 C (98.1 F) 03/04/2022 3:14 PM CDT Respiratory Rate 18 04/07/2023 2:54 PM CDT Oxygen Saturation 97% 01/09/2021 6:05 AM SIMPLEX PRINTER INSTALLER Inhaled Oxygen Concentration - - Weight 70.5 kg (155 lb 6.4 oz) 04/07/2023 2:54 P M CDT Height 170.2 cm (5' 7 ) 01/09/2023 2:26 PM SIMPLEX PRINTER INSTALLER Body Mass Index 24.34 01/09/2023 2:26 PM SIMPLEX PRINTER INSTALLER Plan of Treatment Not on file Medical Devices Implanted Type Area Stopper Maker Device Identifier Shelf Expiration Date Model / Serial / Lot Hardware Left: Wrist Procedures Procedure Name Priority Date/Time Associated Diagnosis Comments HEMOGLOBIN A1C STAT 12/20/2020 2:29 PM SIMPLEX PRINTER INSTALLER LIPID PANEL STAT 12/20/2020 2:[address] ABDOMEN PELVIS WO CONTRAST Routine 08/11/2013 12:00 AM CDT from Last 3 Months or Most Recently Relevant to Health Maintenance Results * (ABNORMAL) Hemoglobin A1c (12/20/2020 2:29 PM SIMPLEX PRINTER INSTALLER) Hgb A1C 11.9(H) 4.0 - 5.6 % [facility] Estimated Average Glucose 295 mg/dL [facility] Comment: The ADA recommends reporting an estimated Average Glucose (eAG) with all Hemoglobin A1c results using the equation derived from a study of 507 normal and diabetic adults. Minority populations were underrepresented and children were not included. (Diabetes Care 31:4766-8614, 2008). The eAG is not equivalent to a fasting glucose. Blood specimen (specimen) 12/20/2020 2:29 PM SIMPLEX PRINTER INSTALLER 12/20/2020 2:52 PM SIMPLEX PRINTER INSTALLER us Gabino Rodriguez MD LAB BLOOD ORDERABLES Final Re sult [facility] Department [place] [address] * (ABNORMAL) Lipid panel (12/20/2020 2:29 PM SIMPLEX PRINTER INSTALLER) Cholesterol 73 30 - 199 mg/dL [facility] Comment: Interpretive Data Ages < or [...] revised on 2018. Triglycerides 72 <=149 mg/dL [facility] Comment: Interpretive Data Ages < [...] revised on 2018. HDL 25(L) >=40 mg/dL [facility] Comment: Interpretive Data Ages < [...] on 2018. LDL, calculated 34 <=129 mg/dL [facility] Comment: Interpretive Data Ages < [...] revised on 2018. Non-HDL Cholesterol 48 mg/dL [facility] Comment: Interpretive Data Ages < [...] last revised on 2018. Chol/HDL ratio 3 [facility] Blood specimen (specimen) 12/20/2020 2:29 PM SIMPLEX PRINTER INSTALLER 12/20/2020 2:49 PM SIMPLEX PRINTER INSTALLER us Gabino Rodriguez MD LAB BLOOD ORDERABLES Edited R esult - Final [facility] Department [place] [address] * CT Abdomen Pelvis WO Contrast (08/11/2013 [...] Cody M.D. MJ:yoshi 08:01 PM 08:01 PM [facility] [EOD] Narrative 08/11/2013 8:05 PM CDT [...] Mild thickening of the rectum unchanged from [id number] exam. This may reflect nondistention with contrast [...] Relevant to Health Maintenance Insurance IDPA MEDICARE [facility] MEDICARE BL CHOICE PRF PPO [place] BLUE ACCESS CHOICE [place] MEDICARE ID[place] BL CHOICE PRF PPO [place] Advance Directives For more information, please contact: [phone] Documents on File Type Date Recorded Patient Fulling Mill Operator Expl anation ADVANCE DIRECTIVE 02/17/2021 8:14 PM Power of Supervisory Aide-Medical ADVANCE DIRECTIVE 01/08/2021 1:22 AM Power of Supervisory Aide-Medical ADVANCE DIRECTIVE 01/08/2021 1:21 AM Power of Supervisory Aide-Financial/Medical * Full Code (Latest Code Status on File) Date Activated Date Inactivated Comments 12/20/2020 11:43 PM 01/09/2021 3:30 PM Care Teams Diet Aid Relationship Specialty Start Date End Date No, Physician PCP - General 01/09/21
--- OUTSIDE RECORDS SUMMARY | 2025-03-03 16:19 | XMS_ITS | Clinical Summary ---
Author Organization [facility] Address [address] [place] [address] Care Team Providers Care Nylon Mender Name Role Phone Adryan Galarza MD Primary Care Provider [phone] Allergies No known active allergies Medications Blood [...] stage 5, GFR less than 15 ml/min ([facility]/HCC HHS/HCC) Take 1 tablet (81 mg total) by mouth daily. 4 Active epoetin charlie-epbx (RETACRIT) 87910 Units/mL injectionIndic ations:Anemia in stage 4 chronic [...] kidney disease) stage 4, GFR 15-29 ml/min ([facility]) 12/02/2021 Primary hypertension 12/02/2021 Type 2 diabetes mellitus wit h diabetic nephropathy, with long-term current use of insulin ([facility]) 12/02/2021 Family History Medical History Relation Comments Diabetes Maternal Grandmother Cancer Mother Diabetes Paternal Grandmother Relation Status Comments Maternal Grandmother Mother Paternal Grandmother Social History Tobacco Use Types Packs/Day Years Used Date Smoking Tobacco: Never Smokeless Tobacco: Never Tobacco Cessation:Counseling Given: No Alcohol Use Standard Drinks/Week Comments Not Currently 0 (1 standard drink = 0.6 oz pur e alcohol) [facility] [employer] TV[employer] Answer Date Recorded In the past 12 months has e [employer], gas, oil, or water [employer] threatened to shut off services in your [...] week 02/11/2024 How often do you attend holiness or muslim serv ices? Patient declined 02/11/2024 Do you belong to any clubs o r organizations such as holiness groups, unions, fraternal or athletic groups, or [...] Recorded Patient Health Questionnaire-2 Score 0 02/02/2024 [facility] - Occupational Stress Questionnaire Answer Date [...] place to sleep or slept in a snf (including now)? No 02/11/2024 Sex and Gender Information Value Date Recorded Sex Assigned at Not on file Legal Sex Male 10:46 PM BRINE PURIFIER Gender Identity Not on file Sexual Orientation [...] COVID-19 Vaccine ( season) 2024 PHQ-2 (Physician [place]) 11/16/2024 02/02/2024 Meningococcal B Vaccine Aged Out [...] Comments HEMOGLOBIN, GLYCOSYLATED Routine 11/23/2023 8:59 AM BRINE PURIFIER from Last 3 Months or Most Recently Relevant to Health Maintenance Results * HEMOGLOBIN, GLYCOSYLATED (11/23/2023 8:59 AM BRINE PURIFIER) HGB A1C 5.5 <5.7 % of total Hgb [facility] Comment: For the purpose of screening for the presence of diabetes: <5.7% Consistent with the absence of diabetes 5.7-6.4% Consistent with increased risk for diabetes (prediabetes) > or =6.5% Consistent with diabetes This assay result is consistent with a decreased risk of diabetes. Currently, no consensus exists regarding use of hemoglobin A1c for diagnosis of diabetes in children. According to [place] Diabetes Association (ADA) guidelines, hemoglobin A1c <7.0% represents optimal control in non- diabetic patients. Different metrics may apply to specific patient populations. Standards of Medical Care in Diabetes(ADA). HbA1c performed on Infin[employer] platform. 11/23/2023 8:59 AM BRINE PURIFIER 11/23/2023 8:59 AM BRINE PURIFIER Narrative Resulting Agency Comment Performing Organization Information: Site ID: BI Name: [facility] Address: [address] [address] [id number] Director: Azeb Ortiz MD us Radhames Cardenas MD LABORATORY Final Result [facility] [id number] [place] [address], from Last 3 Months or Most Recently Relevant to Health Maintenance Insurance MEDICAID MEDICARE MEDICAID Advance Directives * Full Code (Latest Code Status on File) Date Activated Date Inactivated Comments 02/11/2024 4:45 AM 02/16/2024 3:45 PM * Full Code Date Activated Date Inactivated Comments 10/17/2022 4:39 PM 10/22/2022 6:32 PM Care Teams Nylon Mender Relationship Specialty Start Date End Date Adryan Galarza MD PCP - General FAMILY PRACTICE 12/02/21
--- OUTSIDE RECORDS SUMMARY | 2025-03-03 16:19 | XMS_ITS | Clinical Summary ---
Author Organization [place] [id number] [facility] Address [address] [place] [address] Care Team Providers Care Promotions Intern Name Role Phone No, Physician Primary Care Provider [phone] Allergies No known active allergies Medications blood [...] (12/20/2020): Added automatically from request for surgery [id number] Non-pressure chronic ulcer o f other part of right foot with other specified severity 12/20/2020 Overview (12/20/2020): Added automatically from request for surgery [id number] Type 2 diabetes mellitus with foot ulcer (CODE) 12/20/2020 Overview (12/20/2020): Added automatically from request for surgery [id number] Diabetic polyneuropathy asso ciated with type 2 diabetes mellitus 12/20/2020 Overview (12/20/2020): Added automatically from request for surgery [id number] Gangrene of foot 12/20/2020 Overview (12/26/2020): Added automatically from request for surgery [id number] Assessment & Plan (01/16/2021 8:31 AM PRIZE COORDINATOR): - Pt has completed 2 weeks of [...] on file Legal Sex Male 5:28 PM PRIZE COORDINATOR Gender Identity Not on file Sexual Orientation Not on file Obstetrics History Last Filed Vital Signs Vital Sign Reading Time Taken Comments Blood Pressure 145/73 04/07/2023 2:54 PM CDT Pulse 80 04/07/2023 2:54 PM CDT Temperature 36.7 C (98.1 F) 03/04/2022 3:14 PM CDT Respiratory Rate 18 04/07/2023 2:54 PM CDT Oxygen Saturation 97% 01/09/2021 6:05 AM PRIZE COORDINATOR Inhaled Oxygen Concentration - - Weight 70.5 kg (155 lb 6.4 oz) 04/07/2023 2:54 P M CDT Height 170.2 cm (5' 7 ) 01/09/2023 2:26 PM PRIZE COORDINATOR Body Mass Index 24.34 01/09/2023 2:26 PM PRIZE COORDINATOR Plan of Treatment Health Maintenance Due Date [...] Ended) 2025 Medical Devices Implanted Type Area Training Program Manager Device Identifier Shelf Expiration Date Model / Serial / Lot Hardware Left: Wrist Procedures Procedure Name Priority Date/Time Associated Diagnosis Comments HEMOGLOBIN A1C STAT 12/20/2020 2:29 PM PRIZE COORDINATOR LIPID PANEL STAT 12/20/2020 2:[address] ABDOMEN PELVIS WO CONTRAST Routine 08/11/2013 12:00 AM CDT from Last 3 Months or Most Recently Relevant to Health Maintenance Results * (ABNORMAL) Hemoglobin A1c (12/20/2020 2:29 PM PRIZE COORDINATOR) Hgb A1C 11.9(H) 4.0 - 5.6 % [facility] Estimated Average Glucose 295 mg/dL [facility] Comment: The ADA recommends reporting an estimated Average Glucose (eAG) with all Hemoglobin A1c results using the equation derived from a study of 507 normal and diabetic adults. Minority populations were underrepresented and children were not included. (Diabetes Care 31:4236-7352, 2008). The eAG is not equivalent to a fasting glucose. Blood specimen (specimen) 12/20/2020 2:29 PM PRIZE COORDINATOR 12/20/2020 2:52 PM PRIZE COORDINATOR us Gabino Rodriguez MD LAB BLOOD ORDERABLES Final Re sult [facility] [place] [address] * (ABNORMAL) Lipid panel (12/20/2020 2:29 PM PRIZE COORDINATOR) Cholesterol 73 30 - 199 mg/dL [facility] Comment: Interpretive Data Ages < or = [...] revised on 2018. Triglycerides 72 <=149 mg/dL [facility] Comment: Interpretive Data Ages < or = [...] revised on 2018. HDL 25(L) >=40 mg/dL [facility] Comment: Interpretive Data Ages < or = [...] on 2018. LDL, calculated 34 <=129 mg/dL [facility] Comment: Interpretive Data Ages < or = [...] revised on 2018. Non-HDL Cholesterol 48 mg/dL [facility] Comment: Interpretive Data Ages < or = [...] last revised on 2018. Chol/HDL ratio 3 [facility] Blood specimen (specimen) 12/20/2020 2:29 PM PRIZE COORDINATOR 12/20/2020 2:49 PM PRIZE COORDINATOR us Gabino Rodriguez MD LAB BLOOD ORDERABLES Edited R esult - Final [facility] [place] [address] * CT Abdomen Pelvis WO Contrast (08/11/2013 [...] PM: Jose Antonio Cody M.D. Jose Antonio Cdoy M.D. MJ:yoshi 08:01 PM 08:01 PM [facility] [EOD] Narrative 08/11/2013 8:05 PM CDT EXAMINATION: [...] Mild thickening of the rectum unchanged from [id number] exam. This may reflect nondistention with contrast [...] Cody M.D. MJ:yoshi 08:01 PM 08:01 PM [facility] [EOD] us Historical Provider MD PALM CT PROCEDURES Final R esult from Last 3 Months or Most Recently Relevant to Health Maintenance Insurance [facility] MEDICARE [facility] MEDICARE CHOICE [place] * Guarantor: Sukhdev Lowery Account Type Relation to Patient Date of Phone Billing Address Personal/Family Self 1955 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
--- OUTSIDE RECORDS SUMMARY | 2025-03-03 16:19 | XMS_ITS | Encounter Summary ---
Author Organization [facility] Address [facility] [place] [address] Care Team Providers Care Quality Improvement Coordinator Name Role Phone Adryan Galarza MD Primary Care Provider [phone] Encounter Details Date Type Department Care Team (Late st Contact Info) Description 02/18/2024 Hospital Follow-up Call [facility] Cardiovascular Care Unit [address] [place] [address] Mica Null RN Social History Tobacco Use Types Packs/Day Years Used Date Smoking Tobacco: Never Smokeless Tobacco: Never Alcohol Use Standard Drinks/Week Comments Not Currently 0 (1 standard drink = 0.6 oz pur e alcohol) [facility] Utilities Answer Date Recorded In the past 12 months has e [employer], gas, oil, or water [employer] threatened to shut off services in your [...] week 02/11/2024 How often do you attend advent or uatsdin serv ices? Patient declined 02/11/2024 Do you belong to any clubs o r organizations such as advent groups, unions, fraternal or athletic groups, or [...] Recorded Patient Health Questionnaire-2 Score 0 02/02/2024 [facility] - Occupational [...] place to sleep or slept in a fpc (including now)? No 02/11/2024 Sex and Gender Information Value Date Recorded Sex Assigned at Not on file Legal Sex Male 10:46 PM EVALUATION MANAGER Gender Identity Not on file Sexual Orientation [...] Total Score: 0 12/02/19 23 10:36 AM EVALUATION MANAGER documented as of this encounter Care Teams Quality Improvement Coordinator Relationship Specialty Start Date End Date Adryan Galarza MD PCP - General FAMILY PRACTICE 12/02/21 documented as of this encounter
[2025-03-03 16:20] LABS: Alanine Aminotransferase 14 U/L (6-50); Albumin Level 3.8 g/dL (3.5-5.1); Alkaline Phosphatase 83 U/L (38-126); Anion Gap 8 mmol/L (4-12); Aspartate Amino Transferase 19 U/L (17-59); Bilirubin,Total 0.3 mg/dL (0.2-1.3); Blood Urea Nitrogen 40 mg/dL (9-20); Calcium 8.4 mg/dL (8.4-10.2); Carbon Dioxide 32 mmol/L (22-30); Chloride 90 mmol/L (98-107); Estimated CRCL calculation 18 ml/min; Estimated Glomerular Filt Rate 18; Glucose 305 mg/dL (65-110); Potassium 3.6 mmol/L (3.4-5.0); Prothrombin Time 13.1 Seconds (11.1-14.7); Sodium 130 mmol/L (137-145)
[2025-03-03] MEDS: dilTIAZem 100 MG/100 ML 100 MG/100 ML BAG IV CONT (16:53)
--- NOTE | 2025-03-03 17:25 | ED_ITS ---
HPI - General Adult General Chief complaint: Recheck/Abnormal Lab/Rx Stated complaint: tachycardia, hypotension Time Seen by Provider: 03/03/25 15:52 Source: patient and family Mode of arrival: ambulatory Limitations: no limitations History of Present Illness HPI narrative: 69-year-old with a history of hypertension, ESRD on hemodialysis here with a complaint of having fast heartbeat for past few hours. Patient states that he had dialysis earlier this afternoon. He denies any chest pain or chest discomfort. He denies any fever or chills no history of nausea vomiting Onset (ago): hour(s) (3) Radiation: non-radiation Severity: moderate Pain Consistency: constant Relieving factors: none Exacerbating factors: none Associated symptoms: denies other symptoms Related Data Home Medications ?Medication ?Instructions ?Recorded ?Confirmed ?Last Taken ?Type ferrous sulfate 324 mg (65 mg 324 mg PO DAILY 12/16/23 01/05/25 05/14/24 09:00 History iron) tablet,delayed release tamsulosin 0.4 mg capsule 0.4 mg PO DAILY 12/16/23 01/05/25 05/14/24 09:00 History amlodipine 5 mg tablet 10 mg PO DAILY 02/10/24 01/05/25 05/14/24 09:00 History ergocalciferol (vitamin D2) 1,250 1,250 mcg PO WEEKLY 02/10/24 01/05/25 05/14/24 09:00 History mcg (50,000 unit) capsule Allergies Allergy/AdvReac Type Severity Reaction Status Date / Time No Known Allergies Allergy Verified 03/03/25 15:21 Review of Systems 2 Review of Systems: All systems reviewed & are unremarkable except as noted in HPI and below Constitutional: Constitutional: Reports no additional constitutional complaints Eyes: Eyes: Reports no additional eye complaints ENT: Reports system reviewed and no additional complaints, except as documented Cardiovascular: Cardiovascular: Reports as per HPI Respiratory: Respiratory: Reports no additional respiratory complaints Gastrointestinal: Gastrointestinal: Reports no additional gastrointestinal complaints Musculoskeletal: Musculoskeletal: Reports no additional musculoskeletal complaints [facility] Past Medical History Medical History PVD (peripheral vascular disease) Anemia End stage renal disease Urinary retention Overweight (BMI 25.0-29.9) Diarrhea HTN (hypertension) IBS (irritable bowel syndrome) Diabetes Surgical History Surgical History Status post below knee amputation of right lower extremity S/P dialysis catheter insertion S/P arteriovenous (AV) fistula creation Family History Family History Father Congestive heart failure Mother Cancer Social History Social History Smoking status: Never smoker Second hand tobacco smoke exposure: No Alcohol intake: never Substance use: never Substance use type: does not use Do You Feel Safe in your Home?: Yes Lack of Transportation: No Lack of Food: Never True Current Housing: I Have Housing Concerned About Future Housing: No Difficulty Paying Gas/Electric Bills: No Difficulty Paying for Meds: No Currently Unemployed: No Education: High School Diploma/GED Difficulty w/ Childcare or Family Care: No Living arrangements: with family Spiritual care concerns: No Exam 2 Narrative: GENERAL: Well-appearing, well-nourished, and in no acute distress. HEAD: Normocephalic, atraumatic. EYES: PERRLA and EOMI. ENT: Nares clear, no rhinorrhea or epistaxis. Mucous membranes moist. NECK: Supple. CHEST: Clear to auscultation. No respiratory distress. HEART: Tachycardic ABDOMEN: Soft, nontender, nondistended, normal active bowel sounds. EXTREMITIES: Normal range of motion. No edema. SKIN: Warm, dry, no rash. NEURO: No focal deficits. Alert and oriented x3. PSYCH: Normal mood and affect. Course Course Emergency Course: Notified patient and the family about his EKG findings. His heart rate is variable between 160-130 he was given 20 mg of IV Cardizem and was started on the drip. I did review the lab work with the healthcare risk control consultant and the hospitalist and healthcare risk control consultant patient agreeable with admission. Vital Signs Vital signs: Vital Signs Temperature 36.2 C L 03/03/25 15:26 Pulse Rate 140 H 03/03/25 15:26 Respiratory Rate 16 03/03/25 15:26 Blood Pressure 128/82 03/03/25 15:26 Pulse Oximetry 98 03/03/25 15:26 Temperature 36.2 C L 03/03/25 15:26 Pulse Rate 116 H 03/03/25 16:53 Respiratory Rate 16 03/03/25 15:26 Blood Pressure 111/68 03/03/25 16:53 Pulse Oximetry 98 03/03/25 15:26 Medical Decision Making Differential Diagnosis Differential Diagnosis: Electrolyte imbalance, sinus tachycardia, atrial fibrillation, SVT Vital Signs Vital Signs: Vital Signs Temperature 36.2 C L 03/03/25 15:26 Pulse Rate 140 H 03/03/25 15:26 Respiratory Rate 16 03/03/25 15:26 Blood Pressure 128/82 03/03/25 15:26 Pulse Oximetry 98 03/03/25 15:26 Temperature 36.2 C L 03/03/25 15:26 Pulse Rate 116 H 03/03/25 16:53 Respiratory Rate 16 03/03/25 15:26 Blood Pressure 111/68 03/03/25 16:53 Pulse Oximetry 98 03/03/25 15:26 Lab Data Lab results reviewed: Yes I reviewed the patient's lab results. 03/03/25 16:01 03/03/25 16:01 Labs: Lab Results 03/03/25 Range/Units 16:01 WBC 8.3 (4.5-10.0) K/mm3 RBC 3.36 L (4.6-6.20) M/mm3 Hgb 10.6 L (14.0-18.0) g/dL Hct 31.5 L (42.0-52.0) % MCV 93.8 (80-100) fl MCH 31.5 (26-34) pg MCHC 33.7 (32-36) g/dl RDW 13.6 (11.5-14.5) % Plt Count 138 L (150-375) k/mm3 MPV 9.3 (7.4-10.4) fl Immature Gran % (Auto) 0.2 (0-0.5) % Neut % (Auto) 51.9 (45.5-73.1) % Lymph % (Auto) 41.2 (18.3-44.2) % Tyrrell % (Auto) 5.8 (2.6-8.5) % Eos % (Auto) 0.4 (0-4.4) % Baso % (Auto) 0.5 (0.2-1.2) % Lymph # (Auto) 3.44 H (0.9-3.2) K/mm3 Tyrrell # (Auto) 0.5 (0.1-0.6) K/mm3 Eos # (Auto) 0.0 (0-0.3) K/mm3 Baso # (Auto) 0.0 (0.0-0.1) K/mm3 Abs Immat Gran (auto) 0.02 (0.00-0.031) K/mm3 Absolute Neuts (auto) 4.3 (1.3-6.7) K/mm3 Absolute Nucleated RBC 0.000 (0.0-0.012) K/mm3 Nucleated RBC % 0.0 (0.0-0.2) % PT 13.1 (11.1-14.7) Seconds INR 1.0 Sodium 130 L (137-145) mmol/L Potassium 3.6 (3.4-5.0) mmol/L Chloride 90 L (98-107) mmol/L Carbon Dioxide 32 H (22-30) mmol/L Anion Gap 8 (4-12) mmol/L BUN 40 H D (9-20) mg/dL Creatinine 3.39 H (0.7-1.3) mg/dL Estim Creat Clear Calc 18 ml/min Estimated GFR 18 L (59 - ) Glucose 305 H (65-110) mg/dL Calcium 8.4 (8.4-10.2) mg/dL Total Bilirubin 0.3 (0.2-1.3) mg/dL AST 19 (17-59) U/L ALT 14 (6-50) U/L Alkaline Phosphatase 83 (38-126) U/L Troponin I 0.130 H* (0.000-0.034) ng/mL Total Protein 7.0 (6.3-8.2) g/dL Albumin 3.8 (3.5-5.1) g/dL ECG Data EKG #1: ECG completion date: 03/03/25 ECG completion time: 15:36 EKG Interpretation: tachycardia (157), atrial fibrillation, no ectopy, no ST changes, other and no acute changes Critical Care Time Critical Care Time Critical Care Time: Yes Total Critical Care Time: 45 Discharge Plan Discharge Clinical Impression: Atrial fibrillation with RVR Patient Disposition: Still a Patient Condition: Stable Patient Language: Khmer Prescriptions: No Action tamsulosin 0.4 mg Capsule 0.4 mg PO DAILY ferrous sulfate 324 mg (65 mg iron) Tablet,Delayed Release (Dr/Ec) 324 mg PO DAILY amlodipine 5 mg tablet 10 mg PO DAILY ergocalciferol (vitamin D2) 1,250 mcg (50,000 unit) capsule 1,250 mcg PO WEEKLY Rx Instructions: Pt takes on Saturdays. Follow-up/Referrals: Adryan Galarza MD [Primary Care Provider] - Time of Disposition: 17:25
--- NOTE | 2025-03-03 18:35 | P.HP_ITS ---
H&P: HPI History of Present Illness Date/Time: 03/03/25 18:35 Chief Complaint: Tachycardia Narrative: 69-year-old past medical history of PVD, end-stage renal disease with dialysis, hypertension diabetes and IBS presents the hospital with tachycardia. He was at dialysis today and felt fine afterwards he had tachycardia and hypertension presented to the emergency room. Patient states that he is fine and judgment see dinner. HPI gathered from family members. Patient does home hemodialysis with family member that has been trained. Per family members the patient was recently started on binders about 2 days ago and has had copious diarrhea since then. Today after his hemodialysis session he was hypotensive and tachycardic so family brought him in. Patient's AV fistula is free of erythema positive bru it and thrill. Patient has a right [id number]-czg-hdee amputation, no wounds present. Patient denies fever chills, nausea or vomiting. In the ED patient has hemoglobin of 10.6 baseline being around 8.6, sodium of 130, chloride of 90, BUN of 40, creatinine of 3.39 which is around baseline, glucose at 3:05 a.m., troponin of 0.130 which is above baseline. Patient's EKG showed atrial fibrillation with RVR rate of 157 he was given diltiazem x2 and started on a drip. Review of Systems Review of Systems: 12 systems were reviewed and are negativ e except for as per HPI. FOR[facility]LY [facility], [facility] Past Medical History Medical History PVD (peripheral vascular disease) Anemia End stage renal disease Urinary retention Overweight (BMI 25.0-29.9) Diarrhea HTN (hypertension) IBS (irritable bowel syndrome) Diabetes Surgical History Surgical History Status post below knee amputation of right lower extremity S/P dialysis catheter insertion S/P arteriovenous (AV) fistula creation Family History Family History Father Congestive heart failure Mother Cancer Social History Social History Smoking status: Never smoker Second hand tobacco smoke exposure: No Alcohol intake: never Substance use: never Substance use type: does not use Do You Feel Safe in your Home?: Yes Lack of Transportation: No Lack of Food: Never True Current Housing: I Have Housing Concerned About Future Housing: No Difficulty Paying Gas/Electric Bills: No Difficulty Paying for Meds: No Currently Unemployed: No Education: Decline to Answer Difficulty w/ Childcare or Family Care: No Living arrangements: with family Spiritual care concerns: No Meds Home Medications and Allergies Home Medications ?Medication ?Instructions ?Recorded ?Confirmed ?Type ferrous sulfate 324 mg (65 mg 324 mg PO DAILY 12/16/23 03/03/25 History iron) tablet,delayed release tamsulosin 0.4 mg capsule 0.4 mg PO DAILY 12/16/23 03/03/25 History amlodipine 5 mg tablet 10 mg PO DAILY 02/10/24 03/03/25 History ergocalciferol (vitamin D2) 1,250 1,250 mcg PO WEEKLY 02/10/24 03/03/25 History mcg (50,000 unit) capsule Allergies Allergy/AdvReac Type Severity Reaction Status Date / Time No Known Allergies Allergy Verified 03/03/25 15:21 Vital Signs Vital Signs - 24 hr 03/03/25 15:26 03/03/25 16:53 03/03/25 18:26 Temperature 97.1 F L Pulse Rate 140 H 116 H 119 H Respiratory Rate 16 Blood Pressure 128/82 111/68 135/92 H Pulse Oximetry 98 Exam Narrative: General: well appearing, appears stated age. HEENT: normocephalic, atraumatic. Mucous membranes moist. EOMI, PERRLA, bilateral sclera anicteric, no conjunctival injection. Neck supple without JVD, lymphadenopathy, or bruit. Respiratory: clear to ascultation bilaterally. No rales/rhonic/wheezes. Cardiovascular: Regular rate and rhythm, normal S1-S2 upon ascultation. No murmurs, rubs, or clicks. PMI is nondisplaced, capillary refill less than 3 second. Abdomen: Soft, round, no pulsatile masses, nondistended and nontender. No rebound, no guarding. No CVA tenderness, no hepatosplenomegaly. Bowel sounds present to all four quadrants. No high pitch or tinkling sounds, resonant to percussion. Extremities: No cyanosis, clubbing, or edema present. Pulses are palpable 2/2. Active ROM to all four extremities. Left upper arm AV fistula positive bruit and thrill no erythema or induration, right gevuo-lcr-ibph amputation no wounds present Neuro: Alert and orientated x 4. PERRLA. Cranial nerves 2-12 intact without focal deficit. Skin: Warm, dry, and intact, without rash, erythema, or lesion. Psych: pleasant, cooperative, normal speech, normal affect, no hallucinations, no dysarthia H&P: Results Labs Labs: Short CBC 03/03/25 Range/Units 16:01 WBC 8.3 (4.5-10.0) K/mm3 Hgb 10.6 L (14.0-18.0) g/dL Hct 31.5 L (42.0-52.0) % Plt Count 138 L (150-375) k/mm3 BMP 03/03/25 16:01 Sodium 130 L Potassium 3.6 Chloride 90 L Carbon Dioxide 32 H BUN 40 H D Creatinine 3.39 H Glucose 305 H Calcium 8.4 Cardiac Enzymes 03/03/25 Range/Units 16:01 Troponin I 0.130 H* (0.000-0.034) ng/mL Liver Function 03/03/25 Range/Units 16:01 Total Bilirubin 0.3 (0.2-1.3) mg/dL AST 19 (17-59) U/L ALT 14 (6-50) U/L Alkaline Phosphatase 83 (38-126) U/L Albumin 3.8 (3.5-5.1) g/dL Assessment and Plan Assessment and plan (1) Atrial fibrillation with RVR: Code(s): I48.91 - Unspecified atrial fibrillation Status: Acute Assessment and Plan: Could be due to severe dehydration after diarrhea and dialysis Cardiology consult Admit to IMU Diltiazem drip converted to p.o. metoprolol per Cardiology (2) ESRD on hemodialysis: Code(s): N18.6 - End stage renal disease; Z99.2 - Dependence on renal dialysis Status: Acute Assessment and Plan: Nephrology consulted Received dialysis on Thursday Patient was recently started on binders, family states that it is causing severe diarrhea and they do not want to take them. 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 truck driver (5) HTN (hypertension): Code(s): I10 - Essential (primary) hypertension Status: Chronic Assessment and Plan: Holding antihypertensive secondary to diarrhea and hypotension Plan C diff sample ordered Quality VTE Prophylaxis VTE prophylaxis: mechanical ordered Hospitalist MIPS Advance Care Plan I have confirmed that the patient's Advanced Care Plan is present, code status is documented, or surrogate decision maker is listed in patient medical record.: Yes Medication Reconciliation I have utilized all available resources to obtain, update and review the patients current medications (includes all prescriptions, OTC, herbals, cannabis, and nutritional supplements).: Yes
[2025-03-03 19:52] LABS: Glucose Point of Care 188 mg/dl (65-105)
--- NOTE | 2025-03-03 19:56 | ECG_ITS ---
Test Date: 2025-03-03 21:12:10 Measurements Intervals Pana Rate: 64 P: 52 MI: 193 QRS: -25 QRSD: 94 T: 22 QT: 419 QTc: 435 Interpretive Statements SINUS RHYTHM POSSIBLE LEFT ATRIAL ENLARGEMENT DELAYED PRECORDIAL R/S TRANSITION BASELINE ARTIFACT- I, II, III, AVR, AVL, AVF, V1-V6 BORDERLINE ECG Compared to ECG 03/03/2025 15:36:03 Atrial fibrillation no longer present Electronically Signed On 03-04-2025 07:08:02 CDT by Nilson Jerez D.O.
--- NOTE | 2025-03-03 20:05 | PM.CNCAR ---
Assessment and Plan Assessment and plan (1) PAF (paroxysmal atrial fibrillation): Code(s): I48.0 - Paroxysmal atrial fibrillation Status: Acute Assessment and Plan: He is back in sinus rhythm. [id number] 3. Start Metoprolol Tartate 25 mg BID to maintain sinus rhythm. If recurrences then consider Amiodarone. Discuss anticoagulation but given ESRD cannot go with DOAC, and given significant anemia, concern for bleeding and worsening anemia. Will discuss going on aspirin 325 mg daily instead. Obtain echo. (2) HTN (hypertension): Code(s): I10 - Essential (primary) hypertension Status: Chronic Assessment and Plan: Stable. (3) Diabetes: Code(s): E11.9 - Type 2 diabetes mellitus without complications Status: Acute (4) ESRD on hemodialysis: Code(s): N18.6 - End stage renal disease; Z99.2 - Dependence on renal dialysis Status: Acute History of Present Illness History of Present Illness Consult date/time: 03/03/25 20:05 Reason For Visit: Atrial Fib With RVR Narrative: 69 yr old man who is my regular cardiology patient and a patient of Dr. Galarza presents to ER with sob. 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 His and daughter are at bedside. His daughter helps him with doing dialysis at home when she noted irregular fast HR up to 145 bpm and some sob. Patient reports having headaches at that time and mild headache now. No longer having sob. He has no energy, feels weak and only walks around the house. He does not sleep well, sleeps all the time but did not want a sleep study. Denies chest pain, orthopnea, PND, edema, dizziness, palpitations. Cardiovascular Procedures Echo/MUGA:: 04/26/24 Echo: EF 65-70%, mild LVH, grade I diastolic dysfunction (E/e' 20), trace MR, mild TR. 03/31/22 Echo: EF 55-60%, mod LVH, grade I diastolic dysfunction (E/e' 18), mild LAE, mild (BUBBA 1.9 cm2), mild MR, trace TR, RVSP 53 mmHg. Electrophysiology:: 02/10/24 EKG: Sinus rhythm. Stress Tests:: 03/30/24 Lexiscan myoview: Negative. Review of Systems Constitutional: Constitutional: Reports as per HPI, Denies chills, Reports fatigue and Denies fever(s) Cardiovascular: Cardiovascular: Reports as per HPI and Denies chest pain Respiratory: Respiratory: Reports as per HPI and Reports dyspnea Gastrointestinal: Gastrointestinal: Reports as per HPI and Denies abdominal pain Genitourinary: Genitourinary: Reports as per HPI and Denies dysuria Musculoskeletal: Musculoskeletal: Reports as per HPI Neurologic: Reports as per HPI, Denies dizziness and Denies syncope [facility] Past Medical History Medical History PVD (peripheral vascular disease) Anemia End stage renal disease Urinary retention Overweight (BMI 25.0-29.9) Diarrhea HTN (hypertension) IBS (irritable bowel syndrome) Diabetes Surgical History Surgical History Status post below knee amputation of right lower extremity S/P dialysis catheter insertion S/P arteriovenous (AV) fistula creation Family History Family History Father Congestive heart failure Mother Cancer Social History Social History Smoking status: Never smoker Second hand tobacco smoke exposure: No Alcohol intake: never Substance use: never Substance use type: does not use Do You Feel Safe in your Home?: Yes Lack of Transportation: No Lack of Food: Never True Current Housing: I Have Housing Concerned About Future Housing: No Difficulty Paying Gas/Electric Bills: No Difficulty Paying for Meds: No Currently Unemployed: No Education: High School Diploma/GED Difficulty w/ Childcare or Family Care: No Living arrangements: with family Spiritual care concerns: No Meds Home Medications and Allergies Home Medications ?Medication ?Instructions ?Recorded ?Confirmed ?Type ferrous sulfate 324 mg (65 mg 324 mg PO DAILY 12/16/23 01/05/25 History iron) tablet,delayed release tamsulosin 0.4 mg capsule 0.4 mg PO DAILY 12/16/23 01/05/25 History amlodipine 5 mg tablet 10 mg PO DAILY 02/10/24 01/05/25 History ergocalciferol (vitamin D2) 1,250 1,250 mcg PO WEEKLY 02/10/24 01/05/25 History mcg (50,000 unit) capsule Allergies Allergy/AdvReac Type Severity Reaction Status Date / Time No Known Allergies Allergy Verified 03/03/25 15:21 Vital Signs Vital Signs - 24 hr 03/03/25 15:26 03/03/25 16:53 03/03/25 18:26 Temperature 97.1 F L Pulse Rate 140 H 116 H 119 H Respiratory Rate 16 Blood Pressure 128/82 111/68 135/92 H Pulse Oximetry 98 03/03/25 19:53 03/03/25 20:01 Temperature 97.3 F L Pulse Rate 67 65 Respiratory Rate 16 Blood Pressure 129/63 Pulse Oximetry 100 Exam Const: General: cooperative, healthy appearing and comfortable Resp: Auscultation: clear to auscultation bilaterally, no crackles, no rales, no rhonchi and no wheezes Cardio: Rate: regular rate Rhythm: regular rhythm Heart sounds: no murmurs Peripheral pulses: dorsalis pedis present Other: right BKA GI: GI Palp: No abdominal tenderness and Yes Soft to palpation Neuro: General: oriented to person, oriented to place and oriented to time Extrem: Left lower extremity: no edema Results Labs and Meds 03/03/25 16:01 03/03/25 16:01 Lab results: Cardiac Enzymes 03/03/25 Range/Units 16:01 AST 19 (17-59) U/L Troponin I 0.130 H* (0.000-0.034) ng/mL Coagulation 03/03/25 Range/Units 16:01 PT 13.1 (11.1-14.7) Seconds CBC 03/03/25 Range/Units 16:01 WBC 8.3 (4.5-10.0) K/mm3 RBC 3.36 L (4.6-6.20) M/mm3 Hgb 10.6 L (14.0-18.0) g/dL Hct 31.5 L (42.0-52.0) % Plt Count 138 L (150-375) k/mm3 Lymph # (Auto) 3.44 H (0.9-3.2) K/mm3 [place] # (Auto) 0.5 (0.1-0.6) K/mm3 Eos # (Auto) 0.0 (0-0.3) K/mm3 Baso # (Auto) 0.0 (0.0-0.1) K/mm3 Comprehensive Metabolic Panel 03/03/25 Range/Units 16:01 Sodium 130 L (137-145) mmol/L Potassium 3.6 (3.4-5.0) mmol/L Chloride 90 L (98-107) mmol/L Carbon Dioxide 32 H (22-30) mmol/L BUN 40 H D (9-20) mg/dL Creatinine 3.39 H (0.7-1.3) mg/dL Glucose 305 H (65-110) mg/dL Calcium 8.4 (8.4-10.2) mg/dL AST 19 (17-59) U/L ALT 14 (6-50) U/L Alkaline Phosphatase 83 (38-126) U/L Total Protein 7.0 (6.3-8.2) g/dL Albumin 3.8 (3.5-5.1) g/dL Intake and Output 03/03/25 03/03/25 03/03/25 07:59 15:59 23:59 Intake Total 23.6 Balance 23.6 Intake: IV 23.6 dilTIAZem 100 MG/100 ML 100 mg 23.6 In 100 ml @ 5 MG/HR 5 mls/hr IV CONT .Q20H STA Rx#:[id number] Patient Weight 03/03/25 23:59 Weight 76 kg
[2025-03-03] MEDS: METOPROLOL TARTRATE 25 MG TABLET PO (20:48)
[2025-03-03 20:56] LABS: Troponin I 0.248 ng/mL (0.000-0.034)
[2025-03-04] VITALS (16 sets, daily range): BP systolic 121–173; BP diastolic 51–75; PULSE 65–86; RESP 16–18; TEMP 36.3–37.1; O2SAT 97–100
[2025-03-04 00:04] LABS: Troponin I 0.295 ng/mL (0.000-0.034)
[2025-03-04 04:24] LABS: Basophils Absolute Auto 0.1 K/mm3 (0.0-0.1); Basophils Percent Auto 0.5 % (0.2-1.2); Eosinophils Absolute Auto 0.1 K/mm3 (0-0.3); Eosinophils Percent Auto 1.3 % (0-4.4); Hematocrit 27.7 % (42.0-52.0); Hemoglobin 9.3 g/dL (14.0-18.0); Immature Granulocyte Absolute 0.01 K/mm3 (0.00-0.031); Immature Granulocyte Percent A 0.1 % (0-0.5); Lymphocytes Absolute Auto 6.47 K/mm3 (0.9-3.2); Lymphocytes Percent Auto 64.5 % (18.3-44.2); Mean Corpuscular HGB Conc 33.6 g/dl (32-36); Mean Corpuscular Hemoglobin 31.8 pg (26-34); Mean Corpuscular Volume 94.9 fl (80-100); Mean Platelet Volume 9.5 fl (7.4-10.4); Monocytes Absolute Auto 0.7 K/mm3 (0.1-0.6); Monocytes Percent Auto 6.5 % (2.6-8.5); Neutrophils Absolute Auto 2.7 K/mm3 (1.3-6.7); Neutrophils Percent Auto 27.1 % (45.5-73.1); Platelet Count Result 130 k/mm3 (150-375); Red Blood Count 2.92 M/mm3 (4.6-6.20); Red Cell Distribution Width 13.6 % (11.5-14.5)
[2025-03-04 04:32] LABS: Anion Gap 10 mmol/L (4-12); Blood Urea Nitrogen 55 mg/dL (9-20); Calcium 8.3 mg/dL (8.4-10.2); Carbon Dioxide 30 mmol/L (22-30); Chloride 93 mmol/L (98-107); Estimated CRCL calculation 13 ml/min; Estimated Glomerular Filt Rate 12; Glucose 106 mg/dL (65-110); Potassium 3.5 mmol/L (3.4-5.0); Sodium 133 mmol/L (137-145)
[2025-03-04 04:43] LABS: Hemoglobin A1C 5.9 % (<5.7)
[2025-03-04 05:01] LABS: Hepatitis B Surface Antigen Negative (Negative)
[2025-03-04 05:25] LABS: Hepatitis B Surface Anti Res Positive
--- NOTE | 2025-03-04 06:00 | ECHO_ITS ---
Patient Info Name: Sukhdev Lowery Age: 69 years : 1955 Gender: Male Ht: 67 in Wt: 167 lbs BSA: 1.91 m2 HR: 75 bpm BP: 136 / 56 mmHg Heart Rhythm: Sinus Rhythm Technical Quality: Fair Exam Date: 03/04/2025 11:17 AM Exam Location: Echo Lab Patient Status: Inpatient Admit Date: 03/03/2025 Staff Ordering Physician: Hever Putnam MD Cell[employer]ane Bath Mixer: Anjana Lantigua RDCS Attending Provider: Kinjal Ledesma MD Exam Type: CA echo doppler color flow Study Info Indications - Afib Complete two-dimensional, color flow and Doppler transthoracic echocardiogram is performed. Summary 1. Complete two-dimensional, color flow and Doppler transthoracic echocardiogram is performed. 2. Left ventricular chamber dimension is normal. 3. Left ventricular systolic function is normal, estimated at 60-65%. 4. There is mild concentric increased left ventricular wall thickness. 5. The left ventricular diastolic function is grade I diastolic dysfunction. 6. E/e' 26 is elevated. 7. Left atrial chamber dimension is severely enlarged. 8. Right atrial chamber dimension is mildly enlarged. 9. There is moderate aortic valve sclerosis. 10. There is mild aortic valve stenosis with a peak velocity of 199 cm/s, mean gradient of 7 mmHg, and aortic valve area of 1.9 cm2. 11. The mitral valve has moderately calcified annulus. 12. There is mild mitral valve regurgitation. 13. No pulmonary hypertension, estimated pulmonary arterial systolic pressure is 26 mmHg. Left Ventricle E/e' 26 is elevated. Left ventricular chamber dimension is normal. Left ventricular systolic function is normal, estimated at 60-65%. There is mild concentric increased left ventricular wall thickness. The left ventricular diastolic function is grade I diastolic dysfunction. Right Ventricle Right ventricular systolic function is normal and with normal TAPSE 2.4 cm. Right ventricular chamber dimension is normal. Left Atria Left atrial chamber dimension is severely enlarged. Right Atria Right atrial chamber dimension is mildly enlarged. Aortic Valve The aortic valve is trileaflet. There is moderate aortic valve sclerosis. There is mild aortic valve stenosis with a peak velocity of 199 cm/s, mean gradient of 7 mmHg, and aortic valve area of 1.9 cm2. There is no aortic valve regurgitation. Pulmonic Valve There is no pulmonic regurgitation. Mitral Valve The mitral valve has moderately calcified annulus. There is no mitral valve stenosis. There is mild mitral valve regurgitation. Tricuspid Valve There is no tricuspid valve regurgitation. No pulmonary hypertension, estimated pulmonary arterial systolic pressure is 26 mmHg. Pericardium/Pleural There is no pericardial effusion. Inferior Vena Cava Normal inferior vena cava with >50% collapse upon inspiration consistent with normal right atrial pressure, 5 mmHg. Aorta The aortic root size at the sinus of Valsalva is normal. Left Ventricular Outflow Tract Name Value Normal LVOT 2D LVOT Diameter 2.0 cm LVOT Doppler LVOT Peak Gradient 5 mmHg LVOT Mean Gradient 3 mmHg LVOT VTI 29 cm LVOT VTI/AV VTI Ratio 0.6 LVOT Stroke Volume 91 ml LVOT CO 6.2 l/min LVOT CI 3.3 l/min/m2 Pulmonic Valve Name Value Normal RVOT Doppler RVOT Peak Gradient 2 mmHg PV Doppler PV Peak Gradient 3 mmHg Mitral Valve Name Value Normal MV Doppler MV Decel [place] 425 cm/s2 MV PHT 81 ms MV Area (PHT) 2.7 cm2 4.0-5.0 MV Diastolic Function MV E Peak Velocity 119 cm/s MV A Peak Velocity 127 cm/s MV E/A 0.9 MV Decel Time 280 ms MV Annular TDI MV E/e' (Septal) 27.9 <=8.0 MV E/e' (Lateral) 24.8 <=8.0 MV E/e' (Average) 26.4 Tricuspid Valve Name Value Normal TV Regurgitation Doppler TR Peak Velocity 230 cm/s TR Peak Gradient 21 mmHg Estimated PAP/RSVP RA Pressure 5 mmHg <=5 PA Systolic Pressure 26 mmHg <36 RV Systolic Pressure 26 mmHg <36 Aortic Valve Name Value Normal AV Doppler AV Peak Velocity 199 cm/s AV Peak Gradient 16 mmHg AV Mean Gradient 7 mmHg AV VTI 48 cm AV Area (Cont Eq VTI) 1.9 cm2 >=3.0 AV Area (Cont Eq Farhad) 1.8 cm2 AV Regurgitation 2D LVOT Area 3.1 cm2 Ventricles Name Value Normal LV Dimensions 2D/MM IVS Diastolic Thickness (2D) 1.3 cm 0.6-1.0 LVID Diastole (2D) 4.2 cm 4.2-5.8 LVIW Diastolic Thickness (2D) 1.3 cm 0.6-1.0 LVID Systole (2D) 2.6 cm 2.5-4.0 LVOT Diameter 2.0 cm LV Mass (2D Cubed) 195.52 g 88.00-224.00 LV Mass Index (2D Cubed) 103 g/m2 49-115 Relative Wall Thickness (2D) 0.61 LV Fractional Shortening/Ejection Fraction 2D/MM LV Fractional Shortening (2D) 39 % 25-43 LV EF (2D Teichmonroez) 70 % 52-72 LV Diastolic Volume (4C MOD) 138 ml LV EF (4C MOD) 61 % LV Diastolic Volume (2C MOD) 142 ml LV EF (2C MOD) 67 % LV Diastolic Volume (BP MOD) 144 ml 62-150 LV Diastolic Volume Index (BP MOD) 76 ml/m2 34-74 LV Systolic Volume (BP MOD) 54 ml 21-61 LV Systolic Volume Index (BP MOD) 28 ml/m2 11-31 LV EF (BP MOD) 62 % 52-72 LV Diastolic Length (4C) 8.4 cm LV Systolic Length (4C) 7.2 cm LV Stroke Volume (4C MOD) 84 ml Atria Name Value Normal LA Dimensions LA Volume (4C A-L) 108 ml LA Volume (BP A-L) 103 ml RA Dimensions RA Area (4C) 19.7 cm2 <=18.0 Report Signatures
--- NOTE | 2025-03-04 07:56 | P.PNCA_ITS ---
Progress Note: A&P Assessment and Plan (1) PAF (paroxysmal atrial fibrillation): Code(s): I48.0 - Paroxysmal atrial fibrillation Status: Acute Assessment and Plan: He is back in sinus rhythm. [id number] 3. Started Metoprolol Tartate 25 mg BID to maintain sinus rhythm. If recurrences then consider Amiodarone. Discuss anticoagulation but given ESRD cannot go with DOAC, and given significant anemia, concern for bleeding and worsening anemia. Discussed going on aspirin 325 mg daily instead. Obtain echo. (2) HTN (hypertension): Code(s): I10 - Essential (primary) hypertension Status: Chronic Assessment and Plan: Stable. (3) Diabetes: Code(s): E11.9 - Type 2 diabetes mellitus without complications Status: Acute (4) ESRD on hemodialysis: Code(s): N18.6 - End stage renal disease; Z99.2 - Dependence on renal dialysis Status: Acute (5) Elevated troponin: Code(s): R79.89 - Other specified abnormal findings of blood chemistry Status: Acute Assessment and Plan: Probably related to rapid atrial fib in setting of CKD on HD. Check echo for wall motion abnormalities. Subjective Date/time seen: 03/04/25 07:56 Interval history: Denies chest pain or sob or headaches this morning. Exam Const: General: cooperative, healthy appearing and comfortable Orientation/consciousness: oriented to person, oriented to place and oriented to time Resp: Auscultation: clear to auscultation bilaterally, no crackles, no rales, no rhonchi and no wheezes Cardio: Rate: regular rate Rhythm: regular rhythm Heart sounds: no murmurs Peripheral pulses: dorsalis pedis present Other: right BKA Neuro: General: oriented to person, oriented to place and oriented to time Extrem: Left lower extremity: no edema Objective Data Vital Signs Vital Signs: Vital Signs - 24 hr 03/03/25 15:26 03/03/25 16:53 03/03/25 18:26 Temperature 97.1 F L Pulse Rate 140 H 116 H 119 H Respiratory Rate 16 Blood Pressure 128/82 111/68 135/92 H Pulse Oximetry 98 Oxygen Delivery 03/03/25 19:53 03/03/25 20:00 03/03/25 20:00 Temperature 97.3 F L Pulse Rate 67 65 Respiratory Rate 16 Blood Pressure 129/63 Pulse Oximetry 100 Oxygen Delivery Room Air 03/03/25 20:01 03/03/25 20:48 03/03/25 22:00 Temperature Pulse Rate 65 69 65 Respiratory Rate Blood Pressure Pulse Oximetry Oxygen Delivery 03/04/25 00:00 03/04/25 00:00 03/04/25 00:00 Temperature 98.5 F Pulse Rate 73 73 Respiratory Rate 16 Blood Pressure 121/51 L Pulse Oximetry 99 Oxygen Delivery Room Air 03/04/25 02:00 03/04/25 04:00 03/04/25 04:00 Temperature Pulse Rate 70 69 Respiratory Rate Blood Pressure Pulse Oximetry Oxygen Delivery Room Air 03/04/25 04:00 03/04/25 05:47 Temperature 97.3 F L Pulse Rate 73 73 Respiratory Rate 16 Blood Pressure 135/56 L Pulse Oximetry 100 Oxygen Delivery Intake/Output Intake/Output: Intake & Output 03/01/25 03/02/25 03/03/25 03/04/25 23:59 23:59 23:59 23:59 Intake Total 383.6 450 Balance 383.6 450 Meds/Results Medications: Active Medications Generic Name Dose Route Start Last Admin Trade Name Freq PRN Reason Stop Dose Admin Acetaminophen 650 mg 03/03/25 17:33 Acetaminophen 325 Mg Tablet PO Q4H PRN Mild Pain (1-3) or Fever Aspirin 325 mg 03/04/25 09:00 Aspirin 325 Mg Enteric Tablet PO QAM [facility] Dextrose 12.5 gm 03/03/25 19:01 Dextrose 50% 25 Gm/50 Ml Syringe IV PUSH PRN PRN Hypoglycemia Protocol Glucagon 1 mg 03/03/25 19:01 Glucagon For Inj 1 Mg Vial IM PRN PRN Hypoglycemia Protocol Glucose 15 gm 03/03/25 19:01 Glucose Oral Gel 15 Gm Of Glucse In 37.5 Gm Tube PO PRN PRN Hypoglycemia Protocol Dextrose 1,000 mls @ 100 mls/hr 03/03/25 19:01 Dextrose 5% 1,000 Ml IVPB PRN PRN Hypoglycemia Protocol Insulin Aspart 2 - 5 units 03/04/25 08:00 Insulin Aspart (*Bkc) 100 Units/Ml SUB-Q TIDWM [facility] Protocol Insulin Aspart 1 - 2 units 03/03/25 21:00 03/03/25 19:51 Insulin Aspart (*Bkc) 100 Units/Ml SUB-Q Not Given HS [facility] Protocol Metoprolol Tartrate 25 mg 04/18/25 21:00 03/03/25 20:48 Metoprolol Tartrate 25 Mg Tablet PO 25 mg Q12HR [facility] Administration Ondansetron HCl 4 mg 03/03/25 17:33 Ondansetron Inj 4 Mg/2 Ml Vial IV PUSH Q4H PRN Nausea Perflutren Lipid Microsphere 0 ml 03/03/25 17:33 Perflutren Lipid Microspheres 1.5 Ml Vial Diluted To 10 Ml Total Volume IV PUSH 03/06/25 17:36 ONCE PRN adequate visualization Protocol Tamsulosin HCl 0.4 mg 03/04/25 09:00 Tamsulosin Hcl 0.4 Mg Capsule PO DAILY [facility] Radiology Results: ITS Impressions Chest X-Ray 03/03/25 22:41 IMPRESSION: No acute cardiopulmonary pathology. Labs Labs: Laboratory Results - last 24 hr 03/03/25 03/03/25 03/03/25 16:01 19:49 20:24 WBC 8.3 RBC 3.36 L Hgb 10.6 L Hct 31.5 L MCV 93.8 MCH 31.5 MCHC 33.7 RDW 13.6 Plt Count 138 L MPV 9.3 Immature Gran % (Auto) 0.2 Neut % (Auto) 51.9 Lymph % (Auto) 41.2 [place] % (Auto) 5.8 Eos % (Auto) 0.4 Baso % (Auto) 0.5 Lymph # (Auto) 3.44 H [place] # (Auto) 0.5 Eos # (Auto) 0.0 Baso # (Auto) 0.0 Abs Immat Gran (auto) 0.02 Absolute Neuts (auto) 4.3 Absolute Nucleated RBC 0.000 Nucleated RBC % 0.0 PT 13.1 INR 1.0 Sodium 130 L Potassium 3.6 Chloride 90 L Carbon Dioxide 32 H Anion Gap 8 BUN 40 H D Creatinine 3.39 H Estim Creat Clear Calc 18 Estimated GFR 18 L Glucose 305 H POC Capillary Glucose 188 H Hemoglobin A1c Calcium 8.4 Total Bilirubin 0.3 AST 19 ALT 14 Alkaline Phosphatase 83 Troponin I 0.130 H* 0.248 H* D Total Protein 7.0 Albumin 3.8 Hep Bs Antigen Hep Bs Antibody 03/03/25 03/04/25 23:30 03:41 WBC 10.0 RBC 2.92 L Hgb 9.3 L Hct 27.7 L MCV 94.9 MCH 31.8 MCHC 33.6 RDW 13.6 Plt Count 130 L MPV 9.5 Immature Gran % (Auto) 0.1 Neut % (Auto) 27.1 L Lymph % (Auto) 64.5 H [place] % (Auto) 6.5 Eos % (Auto) 1.3 Baso % (Auto) 0.5 Lymph # (Auto) 6.47 H [place] # (Auto) 0.7 H Eos # (Auto) 0.1 Baso # (Auto) 0.1 Abs Immat Gran (auto) 0.01 Absolute Neuts (auto) 2.7 Absolute Nucleated RBC 0.000 Nucleated RBC % 0.0 PT INR Sodium 133 L Potassium 3.5 Chloride 93 L Carbon Dioxide 30 Anion Gap 10 BUN 55 H D Creatinine 5.02 H Estim Creat Clear Calc 13 Estimated GFR 12 L Glucose 106 POC Capillary Glucose Hemoglobin A1c 5.9 H Calcium 8.3 L Total Bilirubin AST ALT Alkaline Phosphatase Troponin I 0.295 H* Total Protein Albumin Hep Bs Antigen Negative Hep Bs Antibody Positive
[2025-03-04 07:57] LABS: Glucose Point of Care 147 mg/dl (65-105)
[2025-03-04] MEDS: ACETAMINOPHEN 325 MG TABLET 650 MG PO ×2 (09:01→17:00)
[2025-03-04] MEDS: METOPROLOL TARTRATE 25 MG TABLET PO ×2 (09:01→20:13)
[2025-03-04] MEDS: ASPIRIN 325 MG ENTERIC TABLET PO (09:01)
[2025-03-04] MEDS: TAMSULOSIN HCL 0.4 MG CAPSULE PO (09:01)
--- NOTE | 2025-03-04 11:15 | P.CONNP_ITS ---
Assessment and Plan Assessment and plan (1) End stage renal disease: Code(s): N18.6 - End stage renal disease Status: Chronic Assessment and Plan: * normally does home hemodialysis 4x/week * last treatment was on 03/03/25 * electrolytes, volume status, and clearance acceptable * plan next HD treatment on Thursday if he remains hospitalized (2) Atrial fibrillation with RVR: Code(s): I48.91 - Unspecified atrial fibrillation Status: Acute Assessment and Plan: * back in normal sinus rhythm * transitioned to oral metoprolol for rate control strategy * anticoagulation(?) - on aspirin * follow-up on Echo * Cardiology following (3) Anemia: Code(s): D64.9 - Anemia, unspecified Status: Acute Assessment and Plan: * due to ESRD * getting ALEX with HD * follow trend of H/H (4) HTN (hypertension): Code(s): I10 - Essential (primary) hypertension Status: Chronic Assessment and Plan: * reasonable control at this time * use of metoprolol likely assisting with better control * may not need amlodipine anymore... * follow trend of hemodynamics (5) Diabetes: Code(s): E11.9 - Type 2 diabetes mellitus without complications Status: Acute Assessment and Plan: * follow accu-checks * appears diet control as an outpatinet * glycemic control per hospitalists I will continue follow the patient with you while remains hospitalized and make further recommendations as deemed necessary. Thank you for allowing me to participate in the care of this patient. L History of Present Illness Reason for Consult Consult date: 03/04/25 Reason for consult: end stage renal disease Chief Complaint Chief complaint: Atrial Fib With RVR History of Present Illness Narrative: The patient is a 68-year-old male with a past medical history as outlined below who presented to [facility] ER due to tachycardia. The patient completed his home hemodialysis treatment earlier on the day of admission but it was noted towards the end of his treatment and following the treatment, that he had persistent tachycardia with heart rates as high as 130 to 140s per his daughter, who assists him with his home hemodialysis treatments. His tachycardia was associated with relative hypotension in the systolic 80s to 90s as well. At the end of his home hemodialysis treatment, he did receive a fluid bolus as there was concerns that volume depletion/ dehydration may be the cause of his low blood pressure and associated tachycardia. His blood pressure improved following the IV fluid bolus but his tachycardia persisted. The only other new symptom the patient reports is some diarrhea which started about 1-2 days ago after initiation of binder therapy for his hyperphosphatemia. He otherwise denies any other acute complaints with regard to chest pain, nausea, vomiting, abdominal pain, fevers, chills, or abdominal pain although he does report some on and off issues with headaches as well as the aforementioned diarrhea. Given the persistence of his tachycardia, his family brought him into the emergency room for further assessment. Workup and evaluation emergency room demonstrated the patient to be hemodynamically stable but tachycardic with heart rate in the 150s to 160s. Routine blood test demonstrated a CBC that was unremarkable aside from chronic anemia with a hemoglobin 10.6 and a chemistry panel that was consistent with his known history of end-stage renal disease without any critical electrolyte abnormalities. His initial troponin was mildly elevated but his EKG demonstrated evidence of atrial fibrillation with RVR. He was initiated on diltiazem IV push and then initiated on a drip and he apparently converted to normal sinus rhythm with these interventions. However, given this appears to be new onset atrial fibrillation, he was admitted to the hospital for further evaluation therapy. Since his admission, he has maintained his normal sinus rhythm and he was seen by Cardiology yesterday afternoon who transitioned him from the initial diltiazem drip to oral metoprolol for rate control with ongoing discussion regarding the possibility of anticoagulation in the context of his known chronic anemia. Renal consultation was requested due to his end-stage renal disease. The patient was previously dialyzing at [facility] 3 times a week. However, about a year ago, he and his family decided they would like to try home hemodialysis as a treatment modality for his end-stage renal disease. He was successfully trained and with the assistance of his daughter, he has been doing fairly well with his home hemodialysis treatments. He performed his last home hemodialysis treatment yesterday it was noted throughout the treatment that he was quite tachycardic. As far as the patient is aware, he did not feel palpitations, dizziness, or lightheadedness but he did have some issues and problems with hypotension that appeared to resolve after his treatment ended and after receiving fluid bolus at the end of his home hemodialysis treatment. Nevertheless, his tachycardia persisted and was recommended by home hemodialysis nurse who his daughter contacted to take him to the ER for further evaluation given its persistence. It was unclear at that time if his tachycardia was a manifestation of relative dehydration versus anemia verses some other arrhythmia issue in general. However, as noted by evaluation in the ER, it would seem that his tachycardia was a manifestation of his atrial fibrillation. Currently, at the time of my visit, he appears to be in no acute distress. Review of Systems 2 Review of Systems: As per HPI. [facility] Past Medical History Medical History PVD (peripheral vascular disease) Anemia End stage renal disease Urinary retention Overweight (BMI 25.0-29.9) Diarrhea HTN (hypertension) IBS (irritable bowel syndrome) Diabetes Surgical History Surgical History Status post below knee amputation of right lower extremity S/P dialysis catheter insertion S/P arteriovenous (AV) fistula creation Family History Family History Father Congestive heart failure Mother Cancer Social History Social History Smoking status: Never smoker Second hand tobacco smoke exposure: No Alcohol intake: never Substance use: never Substance use type: does not use Do You Feel Safe in your Home?: Yes Lack of Transportation: No Lack of Food: Never True Current Housing: I Have Housing Concerned About Future Housing: No Difficulty Paying Gas/Electric Bills: No Difficulty Paying for Meds: No Currently Unemployed: No Education: Decline to Answer Difficulty w/ Childcare or Family Care: No Living arrangements: with family Spiritual care concerns: No Meds Home Medications and Allergies Home Medications ?Medication ?Instructions ?Recorded ?Confirmed ?Type ferrous sulfate 324 mg (65 mg 324 mg PO DAILY 12/16/23 03/03/25 History iron) tablet,delayed release tamsulosin 0.4 mg capsule 0.4 mg PO DAILY 12/16/23 03/03/25 History amlodipine 5 mg tablet 10 mg PO DAILY 02/10/24 03/03/25 History ergocalciferol (vitamin D2) 1,250 1,250 mcg PO WEEKLY 02/10/24 03/03/25 History mcg (50,000 unit) capsule Allergies Allergy/AdvReac Type Severity Reaction Status Date / Time No Known Allergies Allergy Verified 03/03/25 15:21 Vital Signs Vital Signs Temp Pulse Resp BP Pulse Ox O2 Del Method 03/04/25 11:15 98 F 72 18 142/51 H 99 03/04/25 10:00 86 03/04/25 09:01 78 03/04/25 08:00 76 03/04/25 08:00 Room Air 03/04/25 07:54 98.8 F 74 18 153/75 H 97 03/04/25 05:47 73 03/04/25 04:00 97.3 F L 73 16 135/56 L 100 03/04/25 04:00 69 03/04/25 04:00 Room Air 03/04/25 02:00 70 03/04/25 00:00 73 03/04/25 00:00 98.5 F 73 16 121/51 L 99 03/04/25 00:00 Room Air 03/03/25 22:00 65 03/03/25 20:48 69 03/03/25 20:01 65 03/03/25 20:00 65 03/03/25 20:00 Room Air 03/03/25 19:53 97.3 F L 67 16 129/63 100 03/03/25 18:26 119 H 135/92 H 03/03/25 16:53 116 H 111/68 Exam 2 Narrative: GENERAL APPEARANCE: elderly but well developed well nourished male in no acute distress HEENT: normocephalic, atraumatic, pallor to conjunctiva and sclera, nares patient NECK: no lymphadenopathy, thyromegaly, or JVD MOUTH: normal lips, teeth, and gums CARDIOVASCULAR: normal S1 and S2, no rub RESPIRATORY: clear anteriorly ABDOMEN: soft, nontender, nondistended, positive bowel sounds present EXTREMITIES: no evidence of cyanosis, clubbing, or edema; s/p right BKA NEUROLOGICAL: alert and oriented x 3; CN II - XII intact bilaterally; no focal deficits noted Results Lab Results 03/04/25 03:41 03/04/25 03:41 Lab results: Most recent lab results Calcium 8.3 mg/dL (8.4-10.2) L 03/04/25 03:41
[2025-03-04 11:50] LABS: Glucose Point of Care 231 mg/dl (65-105)
--- NOTE | 2025-03-04 11:56 | P.PNIM_ITS ---
Progress Note: A&P Assessment and Plan (1) Atrial fibrillation with RVR: Code(s): I48.91 - Unspecified atrial fibrillation Status: Acute Assessment and Plan: Now in NSR ECHO pending Continue Metoprolol and Aspirin per cardiology Cardiology following (2) ESRD on hemodialysis: Code(s): N18.6 - End stage renal disease; Z99.2 - Dependence on renal dialysis Status: Acute Assessment and Plan: COntineu dialysis per Nephrology Nephrology following (3) Diastolic dysfunction: Code(s): I51.89 - Other ill-defined heart diseases Status: Acute Assessment and Plan: Managed by dialysis Appears euvolemic (4) Diabetes: Code(s): E11.9 - Type 2 diabetes mellitus without complications Status: Acute Assessment and Plan: Renal diet [place]-Jennifer [email or web address] HS SSI and Tonny Hemoglobin A1c pending Does not appear to be on home medications, he was taken 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 Exam Narrative: General: well appearing, appears stated age. HEENT: normocephalic, atraumatic. Mucous membranes moist. EOMI, PERRLA, bilateral sclera anicteric, no conjunctival injection. Neck supple without JVD, lymphadenopathy, or bruit. Respiratory: clear to ascultation bilaterally. No rales/rhonic/wheezes. Cardiovascular: Regular rate and rhythm, normal S1-S2 upon ascultation. No murmurs, rubs, or clicks. PMI is nondisplaced, capillary refill less than 3 second. Abdomen: Soft, round, no pulsatile masses, nondistended and nontender. No rebound, no guarding. No CVA tenderness, no hepatosplenomegaly. Bowel sounds present to all four quadrants. No high pitch or tinkling sounds, resonant to percussion. Extremities: No cyanosis, clubbing, or edema present. Pulses are palpable 2/2. Active ROM to all four extremities. Left upper arm AV fistula positive bruit and thrill no erythema or induration, right [id number] amputation no wounds present Neuro: Alert and orientated x 4. PERRLA. Cranial nerves 2-12 intact without focal deficit. Skin: Warm, dry, and intact, without rash, erythema, or lesion. Psych: pleasant, cooperative, normal speech, normal affect, no hallucinations, no dysarthia Objective Data Vital Signs Vital Signs: Vital Signs - 24 hr 03/03/25 15:26 03/03/25 16:53 03/03/25 18:26 Temperature 97.1 F L Pulse Rate 140 H 116 H 119 H Respiratory Rate 16 Blood Pressure 128/82 111/68 135/92 H Pulse Oximetry 98 Oxygen Delivery 03/03/25 19:53 03/03/25 20:00 03/03/25 20:00 Temperature 97.3 F L Pulse Rate 67 65 Respiratory Rate 16 Blood Pressure 129/63 Pulse Oximetry 100 Oxygen Delivery Room Air 03/03/25 20:01 03/03/25 20:48 03/03/25 22:00 Temperature Pulse Rate 65 69 65 Respiratory Rate Blood Pressure Pulse Oximetry Oxygen Delivery 03/04/25 00:00 03/04/25 00:00 03/04/25 00:00 Temperature 98.5 F Pulse Rate 73 73 Respiratory Rate 16 Blood Pressure 121/51 L Pulse Oximetry 99 Oxygen Delivery Room Air 03/04/25 02:00 03/04/25 04:00 03/04/25 04:00 Temperature Pulse Rate 70 69 Respiratory Rate Blood Pressure Pulse Oximetry Oxygen Delivery Room Air 03/04/25 04:00 03/04/25 05:47 03/04/25 07:54 Temperature 97.3 F L 98.8 F Pulse Rate 73 73 74 Respiratory Rate 16 18 Blood Pressure 135/56 L 153/75 H Pulse Oximetry 100 97 Oxygen Delivery 03/04/25 08:00 03/04/25 08:00 03/04/25 09:01 Temperature Pulse Rate 76 78 Respiratory Rate Blood Pressure Pulse Oximetry Oxygen Delivery Room Air 03/04/25 10:00 03/04/25 11:45 Temperature 98 F Pulse Rate 86 72 Respiratory Rate 18 Blood Pressure 142/51 H Pulse Oximetry 99 Oxygen Delivery Intake/Output Intake/Output: Intake & Output 03/01/25 03/02/25 03/03/25 03/04/25 23:59 23:59 23:59 23:59 Intake Total 383.6 690 Output Total 0 Balance 383.6 690 Meds/Results Medications: Active Medications Generic Name Dose Route Start Last Admin Trade Name Freq PRN Reason Stop Dose Admin Acetaminophen 650 mg 03/03/25 17:33 03/04/25 09:01 Acetaminophen 325 Mg Tablet PO 650 mg Q4H PRN Administration Mild Pain (1-3) or Fever Aspirin 325 mg 03/04/25 09:00 03/04/25 09:01 Aspirin 325 Mg Enteric Tablet PO 325 mg QAM [facility] Administration Dextrose 12.5 gm 03/03/25 19:01 Dextrose 50% 25 Gm/50 Ml Syringe IV PUSH PRN PRN Hypoglycemia Protocol Glucagon 1 mg 03/03/25 19:01 Glucagon For Inj 1 Mg Vial IM PRN PRN Hypoglycemia Protocol Glucose 15 gm 03/03/25 19:01 Glucose Oral Gel 15 Gm Of Glucse In 37.5 Gm Tube PO PRN PRN Hypoglycemia Protocol Dextrose 1,000 mls @ 100 mls/hr 03/03/25 19:01 Dextrose 5% 1,000 Ml IVPB PRN PRN Hypoglycemia Protocol Insulin Aspart 2 - 5 units 03/04/25 08:00 03/04/25 09:00 Insulin Aspart (*Bkc) 100 Units/Ml SUB-Q Not Given TIDWM [facility] Protocol Insulin Aspart 1 - 2 units 03/03/25 21:00 03/03/25 19:51 Insulin Aspart (*Bkc) 100 Units/Ml SUB-Q Not Given HS [facility] Protocol Metoprolol Tartrate 25 mg 03/03/25 21:00 03/04/25 09:01 Metoprolol Tartrate 25 Mg Tablet PO 25 mg Q12HR [facility] Administration Ondansetron HCl 4 mg 03/03/25 17:33 Ondansetron Inj 4 Mg/2 Ml Vial IV PUSH Q4H PRN Nausea Perflutren Lipid Microsphere 0 ml 03/03/25 17:33 Perflutren Lipid Microspheres 1.5 Ml Vial Diluted To 10 Ml Total Volume IV PUSH 03/06/25 17:36 ONCE PRN adequate visualization Protocol Tamsulosin HCl 0.4 mg 03/04/25 09:00 03/04/25 09:01 Tamsulosin Hcl 0.4 Mg Capsule PO 0.4 mg DAILY [facility] Administration Radiology Results: ITS Impressions Chest X-Ray 03/03/25 22:41 IMPRESSION: No acute cardiopulmonary pathology. Labs Labs: Laboratory Results - last 24 hr 03/03/25 03/03/25 03/03/25 16:01 19:49 20:24 WBC 8.3 RBC 3.36 L Hgb 10.6 L Hct 31.5 L MCV 93.8 MCH 31.5 MCHC 33.7 RDW 13.6 Plt Count 138 L MPV 9.3 Immature Gran % (Auto) 0.2 Neut % (Auto) 51.9 Lymph % (Auto) 41.2 [place] % (Auto) 5.8 Eos % (Auto) 0.4 Baso % (Auto) 0.5 Lymph # (Auto) 3.44 H [place] # (Auto) 0.5 Eos # (Auto) 0.0 Baso # (Auto) 0.0 Abs Immat Gran (auto) 0.02 Absolute Neuts (auto) 4.3 Absolute Nucleated RBC 0.000 Nucleated RBC % 0.0 PT 13.1 INR 1.0 Sodium 130 L Potassium 3.6 Chloride 90 L Carbon Dioxide 32 H Anion Gap 8 BUN 40 H D Creatinine 3.39 H Estim Creat Clear Calc 18 Estimated GFR 18 L Glucose 305 H POC Capillary Glucose 188 H Hemoglobin A1c Calcium 8.4 Total Bilirubin 0.3 AST 19 ALT 14 Alkaline Phosphatase 83 Troponin I 0.130 H* 0.248 H* D Total Protein 7.0 Albumin 3.8 Hep Bs Antigen Hep Bs Antibody 03/03/25 03/04/25 03/04/25 23:30 03:41 07:51 WBC 10.0 RBC 2.92 L Hgb 9.3 L Hct 27.7 L MCV 94.9 MCH 31.8 MCHC 33.6 RDW 13.6 Plt Count 130 L MPV 9.5 Immature Gran % (Auto) 0.1 Neut % (Auto) 27.1 L Lymph % (Auto) 64.5 H [place] % (Auto) 6.5 Eos % (Auto) 1.3 Baso % (Auto) 0.5 Lymph # (Auto) 6.47 H [place] # (Auto) 0.7 H Eos # (Auto) 0.1 Baso # (Auto) 0.1 Abs Immat Gran (auto) 0.01 Absolute Neuts (auto) 2.7 Absolute Nucleated RBC 0.000 Nucleated RBC % 0.0 PT INR Sodium 133 L Potassium 3.5 Chloride 93 L Carbon Dioxide 30 Anion Gap 10 BUN 55 H D Creatinine 5.02 H Estim Creat Clear Calc 13 Estimated GFR 12 L Glucose 106 POC Capillary Glucose 147 H Hemoglobin A1c 5.9 H Calcium 8.3 L Total Bilirubin AST ALT Alkaline Phosphatase Troponin I 0.295 H* Total Protein Albumin Hep Bs Antigen Negative Hep Bs Antibody Positive 03/04/25 11:41 WBC RBC Hgb Hct MCV MCH MCHC RDW Plt Count MPV Immature Gran % (Auto) Neut % (Auto) Lymph % (Auto) [place] % (Auto) Eos % (Auto) Baso % (Auto) Lymph # (Auto) [place] # (Auto) Eos # (Auto) Baso # (Auto) Abs Immat Gran (auto) Absolute Neuts (auto) Absolute Nucleated RBC Nucleated RBC % PT INR Sodium Potassium Chloride Carbon Dioxide Anion Gap BUN Creatinine Estim Creat Clear Calc Estimated GFR Glucose POC Capillary Glucose 231 H Hemoglobin A1c Calcium Total Bilirubin AST ALT Alkaline Phosphatase Troponin I Total Protein Albumin Hep Bs Antigen Hep Bs Antibody Quality VTE Prophylaxis VTE prophylaxis: mechanical ordered
[2025-03-04 16:18] LABS: Glucose Point of Care 218 mg/dl (65-105)
[2025-03-04] MEDS: INSULIN ASPART (*BKC) 100 UNITS/ML SUB-Q (16:59)
[2025-03-04] MEDS: HEPARIN SODIUM 5,000 UNITS/ML VIAL 5000 UNITS SUB-Q (16:59)
[2025-03-04 19:52] LABS: Glucose Point of Care 160 mg/dl (65-105)
[2025-03-05] VITALS: BP 155/64; PULSE 67; RESP 18; TEMP 36.4; O2SAT 97
[2025-03-05 04:00] VITALS: PULSE 67
[2025-03-05 04:31] LABS: Basophils Absolute Auto 0.1 K/mm3 (0.0-0.1); Basophils Percent Auto 0.5 % (0.2-1.2); Eosinophils Absolute Auto 0.2 K/mm3 (0-0.3); Eosinophils Percent Auto 1.8 % (0-4.4); Hematocrit 27.2 % (42.0-52.0); Hemoglobin 9.3 g/dL (14.0-18.0); Immature Granulocyte Absolute 0.02 K/mm3 (0.00-0.031); Immature Granulocyte Percent A 0.2 % (0-0.5); Lymphocytes Absolute Auto 6.31 K/mm3 (0.9-3.2); Lymphocytes Percent Auto 63.8 % (18.3-44.2); Mean Corpuscular HGB Conc 34.2 g/dl (32-36); Mean Corpuscular Hemoglobin 32.1 pg (26-34); Mean Corpuscular Volume 93.8 fl (80-100); Mean Platelet Volume 9.7 fl (7.4-10.4); Monocytes Absolute Auto 0.6 K/mm3 (0.1-0.6); Monocytes Percent Auto 6.3 % (2.6-8.5); Neutrophils Absolute Auto 2.7 K/mm3 (1.3-6.7); Neutrophils Percent Auto 27.4 % (45.5-73.1); Platelet Count Result 126 k/mm3 (150-375); Red Cell Distribution Width 13.3 % (11.5-14.5); White Blood Count 9.9 K/mm3 (4.5-10.0)
[2025-03-05 04:37] LABS: Iron 71 ug/dL (49-181)
[2025-03-05 04:47] LABS: Percent Iron Saturation 30 % (20-50)
[2025-03-05 07:39] VITALS: BP 164/60; PULSE 69; RESP 18; TEMP 36.6; O2SAT 96
[2025-03-05 07:54] LABS: Glucose Point of Care 145 mg/dl (65-105)
[2025-03-05 08:00] VITALS: PULSE 68
--- NOTE | 2025-03-05 08:33 | P.PNCA_ITS ---
Progress Note: A&P Assessment and Plan (1) PAF (paroxysmal atrial fibrillation): Code(s): I48.0 - Paroxysmal atrial fibrillation Status: Acute Assessment and Plan: He is back in sinus rhythm. [id number] 3. Started Metoprolol Tartate 25 mg BID to maintain sinus rhythm. If recurrences then consider Amiodarone. Discuss anticoagulation but given ESRD cannot go with DOAC, and given significant anemia, concern for bleeding and worsening anemia. Discussed going on aspirin 325 mg daily instead and patient and family are agreeable. As outpatient consider referral for Watchman Device to prevent left atrial appen dage thrombus and precludes needs for anticoagulation for PAF. May d/c home from cardiology standpoint and f/uwith ga in 1 week. (2) HTN (hypertension): Code(s): I10 - Essential (primary) hypertension Status: Chronic Assessment and Plan: High. Restart home Amlodipine 10 mg daily. (3) Diabetes: Code(s): E11.9 - Type 2 diabetes mellitus without complications Status: Acute (4) ESRD on hemodialysis: Code(s): N18.6 - End stage renal disease; Z99.2 - Dependence on renal dialysis Status: Acute (5) Elevated troponin: Code(s): R79.89 - Other specified abnormal findings of blood chemistry Status: Acute Assessment and Plan: Probably related to rapid atrial fib in setting of CKD on HD. No symptoms to suggest ACS. Subjective Date/time seen: 03/05/25 08:33 Interval history: Denies chest pain or sob. Has headache this morning. Exam Const: General: cooperative, healthy appearing and comfortable Orientation/consciousness: oriented to person, oriented to place and oriented to time Resp: Auscultation: clear to auscultation bilaterally, no crackles, no rales, no rhonchi and no wheezes Cardio: Rate: regular rate Rhythm: regular rhythm Heart sounds: no murmurs Peripheral pulses: dorsalis pedis present Other: right BKA Neuro: General: oriented to person, oriented to place and oriented to time Extrem: Left lower extremity: no edema Objective Data Vital Signs Vital Signs: Vital Signs - 24 hr 03/04/25 09:01 03/04/25 10:00 03/04/25 11:45 Temperature 98 F Pulse Rate 78 86 72 Respiratory Rate 18 Blood Pressure 142/51 H Pulse Oximetry 99 Oxygen Delivery 03/04/25 12:00 03/04/25 12:00 03/04/25 14:00 Temperature Pulse Rate 72 71 Respiratory Rate Blood Pressure Pulse Oximetry 99 Oxygen Delivery Room Air 03/04/25 15:58 03/04/25 16:00 03/04/25 19:52 Temperature 98.5 F 98.4 F Pulse Rate 73 75 65 Respiratory Rate 18 18 Blood Pressure 173/66 H 173/67 H Pulse Oximetry 98 99 Oxygen Delivery 03/04/25 20:00 03/04/25 20:00 03/04/25 20:13 Temperature Pulse Rate 68 70 Respiratory Rate Blood Pressure Pulse Oximetry Oxygen Delivery Room Air 03/05/25 00:00 03/05/25 00:00 03/05/25 04:00 Temperature 97.5 F L Pulse Rate 67 67 67 Respiratory Rate 18 Blood Pressure 155/64 H Pulse Oximetry 97 Oxygen Delivery 03/05/25 07:39 Temperature 98 F Pulse Rate 69 Respiratory Rate 18 Blood Pressure 164/60 H Pulse Oximetry 96 Oxygen Delivery Intake/Output Intake/Output: Intake & Output 03/02/25 03/03/25 03/04/25 03/05/25 23:59 23:59 23:59 23:59 Intake Total 383.6 1130 350 Output Total 0 Balance 383.6 1130 350 Meds/Results Medications: Active Medications Generic Name Dose Route Start Last Admin Trade Name Freq PRN Reason Stop Dose Admin Acetaminophen 650 mg 03/03/25 17:33 03/04/25 17:00 Acetaminophen 325 Mg Tablet PO 650 mg Q4H PRN Administration Mild Pain (1-3) or Fever Amlodipine Besylate 10 mg 03/05/25 09:00 Amlodipine Besylate 10 Mg Tablet PO DAILY SUPA Aspirin 325 mg 03/04/25 09:00 03/04/25 09:01 Aspirin 325 Mg Enteric Tablet PO 325 mg QAM SUPA Administration Dextrose 12.5 gm 03/03/25 19:01 Dextrose 50% 25 Gm/50 Ml Syringe IV PUSH PRN PRN Hypoglycemia Protocol Glucagon 1 mg 03/03/25 19:01 Glucagon For Inj 1 Mg Vial IM PRN PRN Hypoglycemia Protocol Glucose 15 gm 03/03/25 19:01 Glucose Oral Gel 15 Gm Of Glucse In 37.5 Gm Tube PO PRN PRN Hypoglycemia Protocol Heparin Sodium (Porcine) 5,000 units 03/04/25 12:10 03/04/25 20:12 Heparin Sodium 5,000 Units/Ml Vial SUB-Q Not Given Q12HR SUPA Dextrose 1,000 mls @ 100 mls/hr 03/03/25 19:01 Dextrose 5% 1,000 Ml IVPB PRN PRN Hypoglycemia Protocol Insulin Aspart 2 - 5 units 03/04/25 08:00 03/05/25 08:05 Insulin Aspart (*Bkc) 100 Units/Ml SUB-Q Not Given TIDWM SUPA Protocol Insulin Aspart 1 - 2 units 03/03/25 21:00 03/04/25 20:11 Insulin Aspart (*Bkc) 100 Units/Ml SUB-Q Not Given HS SUPA Protocol Metoprolol Tartrate 25 mg 03/03/25 21:00 03/04/25 20:13 Metoprolol Tartrate 25 Mg Tablet PO 25 mg Q12HR SUPA Administration Ondansetron HCl 4 mg 03/03/25 17:33 Ondansetron Inj 4 Mg/2 Ml Vial IV PUSH Q4H PRN Nausea Perflutren Lipid Microsphere 0 ml 03/03/25 17:33 Perflutren Lipid Microspheres 1.5 Ml Vial Diluted To 10 Ml Total Volume IV PUSH 03/06/25 17:36 ONCE PRN adequate visualization Protocol Tamsulosin HCl 0.4 mg 03/04/25 09:00 03/04/25 09:01 Tamsulosin Hcl 0.4 Mg Capsule PO 0.4 mg DAILY SUPA Administration Radiology Results: ITS Impressions Chest X-Ray 03/03/25 22:41 IMPRESSION: No acute cardiopulmonary pathology. Labs Labs: Laboratory Results - last 24 hr 03/04/25 03/04/25 03/04/25 11:41 16:00 19:49 WBC RBC Hgb Hct MCV MCH MCHC RDW Plt Count MPV Immature Gran % (Auto) Neut % (Auto) Lymph % (Auto) [place] % (Auto) Eos % (Auto) Baso % (Auto) Lymph # (Auto) [place] # (Auto) Eos # (Auto) Baso # (Auto) Abs Immat Gran (auto) Absolute Neuts (auto) Absolute Nucleated RBC Nucleated RBC % POC Capillary Glucose 231 H 218 H 160 H Iron TIBC % Saturation Ferritin 03/05/25 03/05/25 03:41 07:51 WBC 9.9 RBC 2.90 L Hgb 9.3 L Hct 27.2 L MCV 93.8 MCH 32.1 MCHC 34.2 RDW 13.3 Plt Count 126 L MPV 9.7 Immature Gran % (Auto) 0.2 Neut % (Auto) 27.4 L Lymph % (Auto) 63.8 H [place] % (Auto) 6.3 Eos % (Auto) 1.8 Baso % (Auto) 0.5 Lymph # (Auto) 6.31 H [place] # (Auto) 0.6 Eos # (Auto) 0.2 Baso # (Auto) 0.1 Abs Immat Gran (auto) 0.02 Absolute Neuts (auto) 2.7 Absolute Nucleated RBC 0.000 Nucleated RBC % 0.0 POC Capillary Glucose 145 H Iron 71 TIBC 237 L % Saturation 30 Ferritin 411.00 H
[2025-03-05] MEDS: HEPARIN SODIUM 5,000 UNITS/ML VIAL 5000 UNITS SUB-Q (08:52)
[2025-03-05] MEDS: METOPROLOL TARTRATE 25 MG TABLET PO (08:52)
[2025-03-05] MEDS: ASPIRIN 325 MG ENTERIC TABLET PO (08:52)
[2025-03-05] MEDS: TAMSULOSIN HCL 0.4 MG CAPSULE PO (08:52)
[2025-03-05] MEDS: amLODIPine BESYLATE 10 MG TABLET PO (08:52)
[2025-03-05] MEDS: ACETAMINOPHEN 325 MG TABLET 650 MG PO (09:02)
--- NOTE | 2025-03-05 10:58 | P.DS_ITS ---
DS: Admitting Diagnosis Discharge Date 03/05/25 Admitting Diagnosis Tachycardia DS: Discharge Diagnosis Discharge Diagnosis (1) Atrial fibrillation with RVR: Code(s): I48.91 - Unspecified atrial fibrillation Status: Acute DS: Summary Hospital Course Hospital Course: 69-year-old past medical history of PVD, end-stage renal disease with dialysis, hypertension diabetes and IBS presents the hospital with tachycardia. He was at dialysis today and felt fine afterwards he had tachycardia and hypertension presented to the emergency room. Patient states that he is fine and judgment see dinner. HPI gathered from family members. Patient does home hemodialysis with family member that has been trained. Per family members the patient was recently started on binders about 2 days ago and has had copious diarrhea since then. Today after his hemodialysis session he was hypotensive and tachycardic so family brought him in. Patient's AV fistula is free of erythema positive bruit and thrill. Patient has a right [id number] amputation, no wounds pre sent. Patient denies fever chills, nausea or vomiting. In the ED patient has hemoglobin of 10.6 baseline being around 8.6, sodium of 130, chloride of 90, BUN of 40, creatinine of 3.39 which is around baseline, glucose at 3:05 a.m., troponin of 0.130 which is above baseline. Patient's EKG showed atrial fibrillation with RVR rate of 157 he was given diltiazem x2 and started on a drip. Patient was started on Diltiazem infusion and cardiology was consulted. ECHO showed EF 60-65% with grade I diastolic dysfunction. Cardiology eventually transitioned patient to MEtoprolol. Patient converted to NSR. cardiology recommended Aspirin 325 mg for stroke prevention rather than DOAC due to concern for Bleeding. Blood pressure was 160/64, and since patient was started on Metoprolol will have patient follow up with PCP for further adjustment. Continue Amlosipine 10mg daily and Tamsulosin. Nephrology was consulted and he continued his dialysis F/u with PCP in 3-5 days. F/u with cards and Nephrology as instructed Time Spent with Patient Time attestation: Total time spent providing and/or coordinating discharge services: DS: Data Data Completed and Pending Labs on day of discharge: Labs from last 24 hours 03/05/25 03/05/25 03/04/25 07:51 03:41 19:49 WBC 9.9 RBC 2.90 L Hgb 9.3 L Hct 27.2 L MCV 93.8 MCH 32.1 MCHC 34.2 RDW 13.3 Plt Count 126 L MPV 9.7 Immature Gran % (Auto) 0.2 Neut % (Auto) 27.4 L Lymph % (Auto) 63.8 H [place] % (Auto) 6.3 Eos % (Auto) 1.8 Baso % (Auto) 0.5 Lymph # (Auto) 6.31 H [place] # (Auto) 0.6 Eos # (Auto) 0.2 Baso # (Auto) 0.1 Abs Immat Gran (auto) 0.02 Absolute Neuts (auto) 2.7 Absolute Nucleated RBC 0.000 Nucleated RBC % 0.0 POC Capillary Glucose 145 H 160 H Iron 71 TIBC 237 L % Saturation 30 Ferritin 411.00 H 03/04/25 03/04/25 16:00 11:41 WBC RBC Hgb Hct MCV MCH MCHC RDW Plt Count MPV Immature Gran % (Auto) Neut % (Auto) Lymph % (Auto) [place] % (Auto) Eos % (Auto) Baso % (Auto) Lymph # (Auto) [place] # (Auto) Eos # (Auto) Baso # (Auto) Abs Immat Gran (auto) Absolute Neuts (auto) Absolute Nucleated RBC Nucleated RBC % POC Capillary Glucose 218 H 231 H Iron TIBC % Saturation Ferritin Discharge Plan Discharge Attending physician on discharge: Kinjal Ledesma Consulting providers: Nilson Jerez; Alexis Langston Discharging Clinician: Kinjal Ledesma Anticipated Discharge Date/Time: 03/05/25 10:46 Patient Disposition: Home Activity: as tolerated Diet: as tolerated, heart healthy and diabetic Patient Instructions: Antibiotic Form, Metoprolol (By mouth), Aspirin (By mouth), Heart Failure (DC), A-fib (Atrial Fibrillation) (DC) Patient Language: [place] Stand Alone Forms: General Discharge Information Follow-up/Referrals: Nilson Jerez DO [Physician] - (F/u with cardiology as instructed ) Alexis Langston MD [Physician] - (F/u with Nephrology as instructed ) Adryan Galarza MD [Primary Care Provider] - (F/u with PCP in 3-5 days ) Discharge Medications: New metoprolol tartrate 25 mg Tablet 25 mg PO Q12HR 30 Days Qty: 60 1RF aspirin 325 mg Tablet,Delayed Release (Dr/Ec) 325 mg PO QAM 30 Days Qty: 30 1RF Continued tamsulosin 0.4 mg Capsule 0.4 mg PO DAILY ferrous sulfate 324 mg (65 mg iron) Tablet,Delayed Release (Dr/Ec) 324 mg PO DAILY amlodipine 5 mg tablet 10 mg PO DAILY ergocalciferol (vitamin D2) 1,250 mcg (50,000 unit) capsule 1,250 mcg PO WEEKLY Patient Comments: Thursday Rx Instructions: Pt takes on Saturdays. Date of admission: 03/03/25 17:33 Primary Care Provider: Adryan Galarza Admitting Provider: Kinjal Ledesma Attending physician on admission: Kinjal Ledesma Condition: Stable
[2025-03-05 11:57] LABS: Glucose Point of Care 174 mg/dl (65-105)
== END 2025-03-05 12:45 | disposition home or self-care (01) | DRG 308 ==
LOC: ANHED 17:32 → ANHIMU 18:04
PROVIDERS: Internal Medicine Nephrology; Nurse Practitioner Gerontology; Admitting Provider Internal Medicine; Emergency Provider Family Medicine; PCP Family Medicine; Visit Provider Internal Medicine
DX: I48.91 Unspecified atrial fibrillation (principal); N18.6 End stage renal disease; I12.0 Hypertensive chronic kidney disease with stage 5 chronic kidney disease or end stage renal disease; K52.1 Toxic gastroenteritis and colitis; Z99.2 Dependence on renal dialysis; E11.22 Type 2 diabetes mellitus with diabetic chronic kidney disease; E11.51 Type 2 diabetes mellitus with diabetic peripheral angiopathy without gangrene; D63.1 Anemia in chronic kidney disease; K58.9 Irritable bowel syndrome, unspecified; Z89.511 Acquired absence of right leg below knee
CPT/HCPCS: 36415; 71045; 80048; 80053; 82728; 82948; 83036; 83540; 83550; 84484; 85025; 85610; 86706; 87340; 93005; 93306; 96374; 96375; 96376; 99285; A9270; J1644; J1815

== ENCOUNTER 2025-04-27 10:28 | Inpatient (IN) | payer MEDICARE, MEDICAID, SELFPAY ==
[2025-04-27] VITALS (17 sets, daily range): BP systolic 100–130; BP diastolic 55–91; PULSE 61–136; RESP 18–24; TEMP 36.5–36.7; O2SAT 97–100; BMI 26.9
--- NOTE | 2025-04-27 | ECHO_ITS ---
Patient Info Name: Sukhdev Loweyr Age: 69 years : 1955 Gender: Male Ht: 66 in Wt: 172 lbs BSA: 1.92 m2 BP: 100 / 63 mmHg Heart Rhythm: Atrial Fibrillation Technical Quality: Good Exam Date: 04/27/2025 3:47 PM Patient Status: I Admit Date: 04/27/2025 Exam Type: CA echo doppler w bubble study Complete two-dimensional, color flow and Doppler transthoracic echocardiogram is performed with agitated saline. Staff Referring Physician: Chase Katz Cattle Tester: Eveline Hodges Attending Provider: Harper Esposito MD Contrast/Agitated Saline Contrast/Ag. Saline: Agitated Saline Amount: 20.00 ml Existing IV Access: Yes IV Access Condition: patent with no signs of infiltration Summary 1. Left ventricular chamber dimension is normal. 2. Left ventricular systolic function is normal, estimated at 65-70. 3. There is mild concentric increased left ventricular wall thickness. 4. The left ventricular diastolic function is abnormal. 5. E/e' 12 is mildly elevated. 6. Atrial fibrillation. 7. Left atrial chamber dimension is moderately enlarged. 8. There is moderate aortic valve sclerosis. 9. There is mild to moderate aortic valve stenosis with a peak velocity of 240 cm/s, mean gradient of 11 mmHg, and aortic valve area of 1.2 cm2. 10. There is trace aortic valve regurgitation. 11. The mitral valve has a moderately calcified annulus. 12. There is trace mitral valve regurgitation. 13. There is trace tricuspid valve regurgitation. 14. No pulmonary hypertension, estimated pulmonary arterial systolic pressure is 26 mmHg. Left Ventricle E/e' 12 is mildly elevated. Left ventricular chamber dimension is normal. Left ventricular systolic function is normal, estimated at 65-70. There is mild concentric increased left ventricular wall thickness. The left ventricular diastolic function is abnormal. Atrial fibrillation. Right Ventricle Right ventricular chamber dimension is normal. Right ventricular systolic function is normal and with normal TAPSE 1.8 cm. Left Atria Left atrial chamber dimension is moderately enlarged. Right Atria Right atrial chamber dimension is normal. Atrial Septum Intact interatrial septum visualized by 2D and agitated saline imaging. Agitated saline injection with and without valsalva maneuver opacified right side cardiac chambers without shunt to left side cardiac chambers. Aortic Valve The aortic valve is trileaflet. There is moderate aortic valve sclerosis. There is mild to moderate aortic valve stenosis with a peak velocity of 240 cm/s, mean gradient of 11 mmHg, and aortic valve area of 1.2 cm2. There is trace aortic valve regurgitation. Pulmonic Valve There is no pulmonic regurgitation. Mitral Valve The mitral valve has a moderately calcified annulus. There is no mitral valve stenosis. There is trace mitral valve regurgitation. Tricuspid Valve There is trace tricuspid valve regurgitation. No pulmonary hypertension, estimated pulmonary arterial systolic pressure is 26 mmHg. Pericardium/Pleural There is no pericardial effusion. Inferior Vena Cava Normal inferior vena cava with >50% collapse upon inspiration consistent with normal right atrial pressure, 5 mmHg. Aorta The aortic root size at the sinus of Valsalva is normal. Left Ventricular Outflow Tract Name Value Normal LVOT 2D LVOT Diameter 2.0 cm LVOT Doppler LVOT Peak Velocity 123 cm/s LVOT Peak Gradient 6 mmHg LVOT Mean Gradient 4 mmHg LVOT VTI 26 cm LVOT VTI/AV VTI Ratio 0.6 LVOT Stroke Volume 53 ml LVOT CO 7.2 l/min LVOT CI 3.7 l/min/m2 Pulmonic Valve Name Value Normal PV 2D RVOT Diameter (2D) 2.0 cm 1.7-2.7 RVOT Doppler RVOT Peak Velocity 70 cm/s RVOT Peak Gradient 2 mmHg PV Doppler PV Peak Velocity 100 cm/s PV Peak Gradient 4 mmHg PV Area (Cont Eq Farhda) 2.3 cm2 PV Area Index (Cont Eq Farhad) 1.19 cm2/m2 Mitral Valve Name Value Normal MV Diastolic Function MV E Peak Velocity 130 cm/s MV A Peak Velocity 49 cm/s MV E/A 2.7 MV Decel Time (PW) 215 ms MV Annular TDI MV E/e' (Septal) 17.8 MV E/e' (Lateral) 10.1 MV E/e' (Average) 13.9 Tricuspid Valve Name Value Normal TV Regurgitation Doppler TR Peak Velocity 229 cm/s TR Peak Gradient 21 mmHg Estimated PAP/RSVP RA Pressure 5 mmHg <=5 PA Systolic Pressure 26 mmHg <36 RV Systolic Pressure 26 mmHg <36 Septae/Shunt/Generic Name Value Normal Qp/Qs Qp/Qs 0.66 Aortic Valve Name Value Normal AV Doppler AV Peak Velocity 240 cm/s AV Peak Gradient 20 mmHg AV Mean Gradient 11 mmHg AV VTI 45 cm AV Area (Cont Eq VTI) 1.2 cm2 >=3.0 AV Area (Cont Eq Farhad) 1.1 cm2 AV DI (Farhad) 0.51 AV Regurgitation 2D LVOT Area 3.2 cm2 Ventricles Name Value Normal LV Dimensions 2D/MM IVS Diastolic Thickness (2D) 1.0 cm 0.6-1.0 LVID Diastole (2D) 4.0 cm 4.2-5.8 LVIW Diastolic Thickness (2D) 1.2 cm 0.6-1.0 LVID Systole (2D) 2.5 cm 2.5-4.0 LVOT Diameter 2.0 cm LV Mass (2D Cubed) 143.74 g 88.00-224.00 LV Mass Index (2D Cubed) 75 g/m2 49-115 Relative Wall Thickness (2D) 0.59 <=0.42 LV Fractional Shortening/Ejection Fraction 2D/MM LV Fractional Shortening (2D) 36 % 25-43 LV EF (2D Teichholz) 66 % LV Diastolic Volume (4C MOD) 105 ml LV EF (4C MOD) 62 % LV Diastolic Volume (2C MOD) 100 ml LV EF (2C MOD) 54 % LV Diastolic Volume (BP MOD) 104 ml 62-150 LV Diastolic Volume Index (BP MOD) 54 ml/m2 34-74 LV Systolic Volume (BP MOD) 43 ml 21-61 LV Systolic Volume Index (BP MOD) 23 ml/m2 11-31 LV EF (BP MOD) 58 % 52-72 LV Diastolic Length (4C) 7.6 cm LV Systolic Length (4C) 6.8 cm LV Stroke Volume (4C MOD) 65 ml Atria Name Value Normal LA Dimensions LA Volume (4C A-L) 65 ml LA Volume (BP A-L) 75 ml RA Dimensions RA Systolic Major [place] Length (4C) 5.8 cm 2.1-2.7 RA Area (4C) 17.6 cm2 <=18.0 Report Signatures
--- NOTE | ~2025-04-27 | XR_ITS ---
XR chest 1V portable Ordering provider: Alexis Langston MD History: 69 years Male with . SOB . Comparison: May 01, 2025 FINDINGS: MEDIASTINUM: The cardiac silhouette is slightly enlarged. Congestive clarissa. LUNGS: No effusions or pneumothorax. Persistent opacification in the right mid and lower zone is agai n demonstrated. OTHER: No free air under the diaphragm. IMPRESSION: No significant change from previous examination. Reviewed, dictated and finalized at location A.
--- NOTE | ~2025-04-27 | MR_ITS ---
MR brain/brain stem wo/w con Ordering provider: Shad Coronado MD History: 69 years Male with . Meningioma . Comparison: CT head performed May 02, 2025 Technique: MRI brain was performed with and without contrast. 16 mL MultiHance is given IV. FINDINGS: BONES: Normal. Calcified meningioma is seen in the left parafalcine area measuring 1.1 x 1.6 cm.. CRANIOCERVICAL JUNCTION: normal. PITUITARY: Normal. MAJOR INTRACRANIAL VESSELS: Normal flow void. OPTIC NERVES AND CRANIAL NERVES VII AND VIII COMPLEXES: Grossly normal. BRAIN PARENCHYMA AND CSF SPACES: Mild diffuse cortical atrophy. The brainstem and cerebellum are nor mal. No acute or chronic intracranial hemorrhage. No extra axial fluid collections. Diffusion weighte d and ADC mapping images reveal no recent ischemia. No midline shift or mass effect. No abnormal cont rast enhancement. PARANASAL SINUSES: Bilateral ethmoid and sphenoid sinus disease. Bilateral frontal sinus disease. FLAIR slightly hyperintense signal is seen in the right eye globe clinical evaluation advised. MASTOIDS: Normal SUPERFICIAL/SURROUNDING SOFT TISSUES: Normal. IMPRESSION: 1. Calcified meningioma in the left parafalcine area. 2. Mild brain atrophy. 3. Mild FLAIR hyperintense signal in the right eye. Clinical evaluation advised. 4. Frontal, ethmoid and sphenoid sinus disease. 5. No abnormal enhancement. Reviewed, dictated and finalized at location A. IMPRESSION: 1. Calcified meningioma in the left parafalcine area. 2. Mild brain atrophy. 3. Mild FLAIR hyperintense signal in the right eye. Clinical evaluation advise d. 4. Frontal, ethmoid and sphenoid sinus disease. 5. No abnormal enhancement.
--- NOTE | ~2025-04-27 | CT_ITS ---
EXAMINATION: CT brain wo con DATE: 04/28/2025 13:56 INDICATION: Syncope TECHNIQUE: Computed tomography (CT) of the head was performed without intravenous contrast. Sagittal and coronal reconstructions were performed. The mA was adjusted according to patient size. Iterative reconstruction technique was employed. The dose-length product was 605.30 mGy-cm. COMPARISON: head CT dated 05/23/24 FINDINGS: No acute intracranial hemorrhage, acute infarction or abnormal extra axial fluid collection. 2.1 x 1. 7 x 1.2 cm calcified extra-axial mass positioned along the left side of the falx in the frontoparieta l region consistent with a meningioma. Ventricles are normal and symmetric. Changes of bilateral intr aocular lens replacement. Postoperative change of prior right mastoidectomy. The paranasal sinuses an d left mastoid air cells are normal. IMPRESSION: 1. 2.1 cm left parafalcine meningioma. No acute intracranial process. Reviewed, dictated and finalized at location A.
--- NOTE | ~2025-04-27 | US_ITS ---
EXAMINATION: US carotid duplex BI DATE: 04/28/2025 14:27 INDICATION: Syncope TECHNIQUE: Grayscale, color Doppler, and pulsed Doppler images of the cervical carotid arteries were obtained. The degree of vessel stenosis is placed in one of the following categories: normal, <50%, 5 0-69%, >=70% but less than near-occlusion, near-occlusion, or total occlusion. Note that percent sten osis relative to normal distal artery lumen diameter is indirectly measured from velocity measurement s as described by Mega, et al. Radiology 2003; 229:340-346. COMPARISON: None. FINDINGS: RIGHT: The right common carotid artery (CCA) peak systolic velocity (PSV) is 89 cm/s. The right internal car otid artery (ICA) PSV is 95 cm/s. The right ICA end-diastolic velocity (EDV) is 18 cm/s. The right IC A/CCA PSV ratio is 1.1. Grayscale and color Doppler images yield an estimate of <50% diameter reducti on from plaque in the ICA. The external carotid artery (ECA) PSV is 118 cm/s. There is antegrade flow in the right vertebral artery. LEFT: The left CCA PSV is 89 cm/s. The left ICA PSV is 89 cm/s. The left ICA EDV is 25 cm/s. The left ICA/C CA PSV ratio is 1.0. Grayscale and color Doppler images yield an estimate of <50% diameter reduction from plaque in the ICA. The ECA PSV is 88 cm/s. There is antegrade flow in the left vertebral artery. IMPRESSION: 1. <50% stenosis in the right internal carotid artery. 2. <50% stenosis in the left internal carotid artery. Reviewed, dictated and finalized at location A.
--- NOTE | ~2025-04-27 | XR_ITS ---
XR chest 1V portable Ordering provider: Ajay Grant MD History: 69 years Male with . shortness of breath . Comparison: April 30, 2025 FINDINGS: MEDIASTINUM: The cardiac silhouette is not enlarged. Congestive clarissa. LUNGS: No effusions or pneumothorax. Opacification in the right mid and lower zones suggestive of pne umonia. No change from previous examination. OTHER: No free air under the diaphragm. IMPRESSION: Pneumonia in the right mid and lower lung zones. Reviewed, dictated and finalized at location A.
--- NOTE | ~2025-04-27 | XR_ITS ---
CHEST RADIOGRAPH CLINICAL HISTORY: dyspnea . COMPARISON: 04/27/2025 TECHNIQUE: Single portable view of the chest. FINDINGS The cardiomediastinal silhouette is enlarged, unchanged. Increased interstitial markings are identified bilaterally, findings suggesting moderate pulmonary va scular congestion, right greater than left. Hazy opacification of the right hemidiaphragm consistent with a small to moderate right-sided pleural effusion. The remainder of the lungs are clear. IMPRESSION: Moderate pulmonary vascular congestion with a right-sided pleural effusion Reviewed, dictated and finalized at location A.
--- NOTE | ~2025-04-27 | XR_ITS ---
EXAMINATION: XR chest 2V 04/27/2025 11:22 INDICATION: Syncope PROCEDURE: 2 view chest COMPARISON: Comparison to multiple prior studies sequentially, with oldest reviewed study dated 05/14. FINDINGS: The lungs are clear. The cardiomediastinal silhouette is within normal limits. There are no pleural effusions. There is no pneumothorax suspected. There are calcified right hilar lymph nod es, consistent with chronic granulomatous disease. IMPRESSION: 1: NO ACUTE CARDIOPULMONARY DISEASE. Reviewed, dictated and finalized at location B.
--- NOTE | 2025-04-27 10:42 | ECG_ITS ---
Test Date: 2025-04-27 10:36:18 Measurements Intervals [place] Rate: 125 P: 0 ID: 0 QRS: -39 QRSD: 102 T: 42 QT: 307 QTc: 444 Interpretive Statements ATRIAL FIBRILLATION WITH RAPID VENTRICULAR RESPONSE LEFT AXIS DEVIATION DELAYED PRECORDIAL R/S TRANSITION BASELINE ARTIFACT- I, II, III, AVR, AVL, AVF, V1 ABNORMAL ECG Compared to ECG 03/03/2025 21:12:10 Left-axis deviation now present Sinus rhythm no longer present Electronically Signed On 04-27-2025 11:19:39 CDT by Nilson Jerez D.O.
[2025-04-27 10:57] LABS: Basophils Absolute Auto 0.1 K/mm3 (0.0-0.1); Basophils Percent Auto 0.7 % (0.2-1.2); Eosinophils Absolute Auto 0.2 K/mm3 (0-0.3); Eosinophils Percent Auto 1.7 % (0-4.4); Hematocrit 33.5 % (42.0-52.0); Hemoglobin 11.5 g/dL (14.0-18.0); Immature Granulocyte Absolute 0.02 K/mm3 (0.00-0.031); Immature Granulocyte Percent A 0.2 % (0-0.5); Lymphocytes Absolute Auto 5.47 K/mm3 (0.9-3.2); Mean Corpuscular HGB Conc 34.3 g/dl (32-36); Mean Corpuscular Hemoglobin 31.6 pg (26-34); Mean Platelet Volume 8.9 fl (7.4-10.4); Monocytes Absolute Auto 0.6 K/mm3 (0.1-0.6); Monocytes Percent Auto 5.9 % (2.6-8.5); Neutrophils Absolute Auto 3.8 K/mm3 (1.3-6.7); Neutrophils Percent Auto 37.5 % (45.5-73.1); Platelet Count Result 115 k/mm3 (150-375); Red Blood Count 3.64 M/mm3 (4.6-6.20); Red Cell Distribution Width 13.4 % (11.5-14.5); White Blood Count 10.1 K/mm3 (4.5-10.0)
[2025-04-27] MEDS: SODIUM CHLORIDE 0.9% IV 250 ML 999 ML IV CONT (11:02)
[2025-04-27 11:04] LABS: Alanine Aminotransferase 17 U/L (6-50); Albumin Level 3.8 g/dL (3.5-5.1); Alkaline Phosphatase 72 U/L (38-126); Anion Gap 12 mmol/L (4-12); Aspartate Amino Transferase 21 U/L (17-59); Bilirubin,Total 0.2 mg/dL (0.2-1.3); Blood Urea Nitrogen 53 mg/dL (9-20); Calcium 8.9 mg/dL (8.4-10.2); Carbon Dioxide 25 mmol/L (22-30); Chloride 96 mmol/L (98-107); Estimated CRCL calculation 13 ml/min; Estimated Glomerular Filt Rate 13; Glucose 213 mg/dL (65-110); Potassium 3.7 mmol/L (3.4-5.0); Sodium 133 mmol/L (137-145); Total Protein 6.6 g/dL (6.3-8.2)
--- NOTE | 2025-04-27 11:05 | ED.SYNCOPE ---
HPI - Syncope General Chief Complaint: Syncope Stated Complaint: syncopal event GLF Time Seen by Provider: 04/27/25 10:29 Source: patient and EMS Mode of arrival: EMS Limitations: no limitations History of Present Illness HPI narrative: This is a 69-year-old male, with history of end-stage renal disease on dialysis Thursday and AFib, who is brought in by EMS after a syncopal episode at home. The patient states he was wanting to use the bathroom, when he felt lightheaded and fell. He does not believe and does not recall losing consciousness. Patient's ex spouse at bedside states he appeared to pass out for 10-30 seconds. He states he feels somewhat lightheaded. EMS reports on response, the patient was somewhat hypotensive at 90/60. He was given a 250 mL bolus with improvement of blood pressure to 110/70. Fingerstick blood glucose was 263. The patient denies any recent changes in health or recent illness. He has no other complaints at this time. Related Data Home Medications ?Medication ?Instructions ?Recorded ?Confirmed ?Last Taken ?Type ferrous sulfate 324 mg (65 mg 324 mg PO DAILY 12/16/23 03/13/25 03/03/25 History iron) tablet,delayed release tamsulosin 0.4 mg capsule 0.4 mg PO DAILY 12/16/23 03/13/25 03/03/25 History amlodipine 5 mg tablet 10 mg PO DAILY 02/10/24 03/13/25 03/03/25 History ergocalciferol (vitamin D2) 1,250 1,250 mcg PO WEEKLY 02/10/24 03/13/25 05/14/24 09:00 History mcg (50,000 unit) capsule Allergies Allergy/AdvReac Type Severity Reaction Status Date / Time No Known Allergies Allergy Verified 04/27/25 10:42 Review of Systems Review of Systems: All systems reviewed & are unremarkable except as noted in HPI and below PMFSH Past Medical History Medical History PVD (peripheral vascular disease) Anemia End stage renal disease Urinary retention Overweight (BMI 25.0-29.9) Diarrhea HTN (hypertension) IBS (irritable bowel syndrome) Diabetes Surgical History Surgical History Status post below knee amputation of right lower extremity S/P dialysis catheter insertion S/P arteriovenous (AV) fistula creation Family History Family History Father Congestive heart failure Mother Cancer Social History Social History Smoking status: Never smoker Second hand tobacco smoke exposure: No Alcohol intake: never Substance use: never Substance use type: does not use Do You Feel Safe in your Home?: Yes Lack of Transportation: No Lack of Food: Never True Current Housing: I Have Housing Concerned About Future Housing: No Difficulty Paying Gas/Electric Bills: No Difficulty Paying for Meds: No Currently Unemployed: No Education: Decline to Answer Difficulty w/ Childcare or Family Care: No Living arrangements: with family Spiritual care concerns: No Exam Narrative: GENERAL: Well-developed, well-nourished, and in no acute distress. HEAD: Normocephalic, atraumatic. EYES: PERRLA and EOMI. ENT: Nares clear, no rhinorrhea or epistaxis. Mucous membranes moist. Oropharynx without tonsillar hypertrophy exudate or other lesions. CHEST: Clear to auscultation. No respiratory distress. No wheezes rales or rhonchi HEART: Irregularly irregular rhythm. No murmur heard. Normal peripheral pulses. ABDOMEN: Soft, nontender, nondistended, normal active bowel sounds. EXTREMITIES: Right BKA with a well-healed stump with out erythema, swelling or induration. Normal range of motion. No edema. SKIN: Warm, dry, no rash. NEURO: Alert and oriented x3. No focal deficit. Moving all 4 limbs spontaneously PSYCH: Normal mood and affect. Course Course Emergency Course: 10:42 - The patient's history is concerning for syncope, cause current young clear. Will obtain labs, EKG, imaging and reassess. 11:45 - EKG shows AFib RVR. This has not improved despite IV fluids. White blood cell count slightly elevated at 0.1 with hemoglobin of 11.5. This appears stable compared to patient's previous labs. Chemistries demonstrate mild hyponatremia with sodium 133 creatinine of 4.5 a BUN of 53. Anion gap within normal limits. Potassium 3.7 calcium 8.9 with magnesium slightly elevated at 2.4. Will give a 5 mg IV dose of metoprolol for rate control. I suspect the patient's syncopal episode may be related to arrhythmia. 12:16 - The patient's blood pressure decreased from the 12/05 systolic to the 80s. Will give IV fluids. 13:05 - Chest x-ray not concerning for acute cardiopulmonary process. D-dimer negative. Urinalysis positive for yeast. Despite IV fluids and improvement of the patient's blood pressure, his AFib RVR persist. Will start diltiazem drip. 13:17 - I discussed the patient with hospitalist, ELAINE Best who accepts admission. A page was sent out to Cardiology for consultation. 14:36 - I discussed the patient with employee benefits insurance agent, Dr. Jerez who agrees to consult. Vital Signs Vital signs: Vital Signs Temperature 97.7 F 04/27/25 10:21 Pulse Rate 133 H 04/27/25 10:21 Respiratory Rate 22 H 04/27/25 10:21 Blood Pressure 121/91 H 04/27/25 10:21 Pulse Oximetry 98 04/27/25 10:21 Oxygen Delivery Room Air 04/27/25 10:21 Temperature 97.7 F 04/27/25 10:21 Pulse Rate 121 H 04/27/25 13:44 Respiratory Rate 24 H 04/27/25 13:39 Blood Pressure 102/79 04/27/25 13:44 Pulse Oximetry 100 04/27/25 13:39 Oxygen Delivery Room Air 04/27/25 10:47 MDM - Syncope MDM Narrative Medical decision making narrative: Plan: Labs, EKG, on gentle IV fluids, imaging, cardiac monitoring, reassess Differential Diagnosis Differential diagnosis: Likely syncope due to orthostatic hypotension and other (Metabolic abnormality, arrhythmia, other) Lab Data 04/27/25 10:48 04/27/25 10:48 Labs: Lab Results 04/27/25 04/27/25 04/27/25 Range/Units 10:48 10:48 11:48 WBC 10.1 H (4.5-10.0) K/mm3 RBC 3.64 L (4.6-6.20) M/mm3 Hgb 11.5 L (14.0-18.0) g/dL Hct 33.5 L (42.0-52.0) % MCV 92.0 (80-100) fl MCH 31.6 (26-34) pg MCHC 34.3 (32-36) g/dl RDW 13.4 (11.5-14.5) % Plt Count 115 L (150-375) k/mm3 MPV 8.9 (7.4-10.4) fl Immature Gran % (Auto) 0.2 (0-0.5) % Neut % (Auto) 37.5 L (45.5-73.1) % Lymph % (Auto) 54.0 H (18.3-44.2) % [place] % (Auto) 5.9 (2.6-8.5) % Eos % (Auto) 1.7 (0-4.4) % Baso % (Auto) 0.7 (0.2-1.2) % Lymph # (Auto) 5.47 H (0.9-3.2) K/mm3 [place] # (Auto) 0.6 (0.1-0.6) K/mm3 Eos # (Auto) 0.2 (0-0.3) K/mm3 Baso # (Auto) 0.1 (0.0-0.1) K/mm3 Abs Immat Gran (auto) 0.02 (0.00-0.031) K/mm3 Absolute Neuts (auto) 3.8 (1.3-6.7) K/mm3 Absolute Nucleated RBC 0.000 (0.0-0.012) K/mm3 Nucleated RBC % 0.0 (0.0-0.2) % D-Dimer 0.32 (<0.48) ug/mL Sodium 133 L (137-145) mmol/L Potassium 3.7 (3.4-5.0) mmol/L Chloride 96 L (98-107) mmol/L Carbon Dioxide 25 (22-30) mmol/L Anion Gap 12 (4-12) mmol/L BUN 53 H (9-20) mg/dL Creatinine 4.58 H (0.7-1.3) mg/dL Estim Creat Clear Calc 13 ml/min Estimated GFR 13 L (59 - ) Glucose 213 H (65-110) mg/dL Calcium 8.9 (8.4-10.2) mg/dL Magnesium 2.4 H Cancelled (1.6-2.3) mg/dL Total Bilirubin 0.2 (0.2-1.3) mg/dL AST 21 (17-59) U/L ALT 17 (6-50) U/L Alkaline Phosphatase 72 (38-126) U/L Total Protein 6.6 (6.3-8.2) g/dL Albumin 3.8 (3.5-5.1) g/dL Urine Color Yellow (Yellow) Urine Appearance Cloudy H (Clear) Urine pH 5.0 (5.0-9.0) Ur Specific [place] 1.021 (1.001-1.035) Urine Protein 4+ H (Negative) mg/dL Urine Glucose (UA) 2+ H (Negative) mg/dL Urine Ketones Trace H (Negative) mg/dL Ur Blood (Man) Negative (Negative) Urine Nitrate Negative (Negative) Urine Bilirubin Negative (Negative) Urine Urobilinogen 0.2 (<2.0) mg/dL Add Ur Microanalysis Reviewed Leukocyte Esterase Rfl Trace H (Negative) TRISTA/UL Urine RBC 0-2 (0-2) /hpf Urine WBC 6-10 H (0-3) /hpf Ur Squamous Epith Cells Occasional (Few) /hpf Urine Bacteria None seen /hpf Urine Casts 6-10 Urine Yeast (Budding) Present H (None) /hpf ECG Data EKG #1: Attestation: I personally reviewed and interpreted this ECG as follows: ECG completion date: 04/27/25 ECG completion time: 10:36 Interpretation: AFib RVR, rate 125, left axis deviation, no ST segment elevations or T-wave inversions concerning for ischemia, otherwise normal intervals with QTC of 444 1. Prior EKGs done in February 2025 demonstrate both sinus rhythm and AFib RVR, consistent with paroxysmal AFib Critical Care Time Critical Care Time Critical Care Time: Yes Total Critical Care Time: 35 Discharge Plan Discharge Clinical Impression: Atrial fibrillation with RVR, Acute UTI Syncope Qualifiers: Syncope type: unspecified Qualified Code(s): R55 - Syncope and collapse Patient Disposition: Still a Patient Condition: Serious Patient Language: Maltese Prescriptions: No Action tamsulosin 0.4 mg Capsule 0.4 mg PO DAILY ferrous sulfate 324 mg (65 mg iron) Tablet,Delayed Release (Dr/Ec) 324 mg PO DAILY amlodipine 5 mg tablet 10 mg PO DAILY ergocalciferol (vitamin D2) 1,250 mcg (50,000 unit) capsule 1,250 mcg PO WEEKLY Patient Comments: Thursday Rx Instructions: Pt takes on Saturdays. aspirin 325 mg Tablet,Delayed Release (Dr/Ec) 325 mg PO QAM 30 Days Qty: 30 1RF metoprolol tartrate 25 mg Tablet 25 mg PO Q12HR 30 Days Qty: 60 1RF Follow-up/Referrals: Adryan Galarza MD [Primary Care Provider] - Time of Disposition: 13:20
[2025-04-27 11:13] LABS: Magnesium 2.4 mg/dL (1.6-2.3)
[2025-04-27 11:47] LABS: D Dimer 0.32 ug/mL (<0.48)
[2025-04-27] MEDS: METOPROLOL TARTRATE INJ 5 MG/5 ML VIAL IV PUSH (11:50)
[2025-04-27] MEDS: SODIUM CHLORIDE 0.9% IV 1,000 ML 999 ML IV CONT (12:19)
--- OUTSIDE RECORDS SUMMARY | 2025-04-27 12:19 | XMS_ITS | Referral Summary ---
Author Organization [facility] [address] Address [address] [place] [address] Care Team Providers Care Gear Shaver Set Up Operator Name Role Phone No, Physician Primary Care Provider [phone] Allergies No known active allergies Medications blood [...] (12/20/2020): Added automatically from request for surgery [id number] Non-pressure chronic ulcer o f other part of right foot with other specified severity 12/20/2020 Overview (12/20/2020): Added automatically from request for surgery [id number] Type 2 diabetes mellitus with foot ulcer (CODE) 12/20/2020 Overview (12/20/2020): Added automatically from request for surgery [id number] Diabetic polyneuropathy asso ciated with type 2 diabetes mellitus 12/20/2020 Overview (12/20/2020): Added automatically from request for surgery [id number] Gangrene of foot 12/20/2020 Overview (12/26/2020): Added automatically from request for surgery [id number] Assessment & Plan (01/16/2021 8:31 AM SEWING MACHINE OPERATOR): - Pt has completed 2 weeks [...] on file Legal Sex Male 5:28 PM SEWING MACHINE OPERATOR Gender Identity Not on file Sexual Orientation Not on file Last Filed Vital Signs Vital Sign Reading Time Taken Comments Blood Pressure 145/73 04/07/2023 2:54 PM CDT Pulse 80 04/07/2023 2:54 PM CDT Temperature 36.7 C (98.1 F) 03/04/2022 3:14 PM CDT Respiratory Rate 18 04/07/2023 2:54 PM CDT Oxygen Saturation 97% 01/09/2021 6:05 AM SEWING MACHINE OPERATOR Inhaled Oxygen Concentration - - Weight 70.5 kg (155 lb 6.4 oz) 04/07/2023 2:54 P M CDT Height 170.2 cm (5' 7) 01/09/2023 2:26 PM SEWING MACHINE OPERATOR Body Mass Index 24.34 01/09/2023 2:26 PM SEWING MACHINE OPERATOR Plan of Treatment Not on file Medical Devices Implanted Type Area Multifocal Button Generator Device Identifier Shelf Expiration Date Model / Serial / Lot Hardware Left: Wrist Procedures Procedure Name Priority Date/Time Associated Diagnosis Comments HEMOGLOBIN A1C STAT 12/20/2020 2:29 PM SEWING MACHINE OPERATOR LIPID PANEL STAT 12/20/2020 2:29 PM SEWING MACHINE OPERATOR CT ABDOMEN PELVIS WO CONTRAST Routine 08/11/2013 12:00 AM CDT from Last 3 Months or Most Recently Relevant to Health Maintenance Results * (ABNORMAL) Hemoglobin A1c (12/20/2020 2:29 PM SEWING MACHINE OPERATOR) Hgb A1C 11.9(H) 4.0 - 5.6 % [facility] Estimated Average Glucose 295 mg/dL [facility] Comment: The ADA recommends reporting an estimated Average Glucose (eAG) with all Hemoglobin A1c results using the equation derived from a study of 507 normal and diabetic adults. Minority populations were underrepresented and children were not included. (Diabetes Care 31:6270-2013, 2008). The eAG is not equivalent to a fasting glucose. Blood specimen (specimen) 12/20/2020 2:29 PM SEWING MACHINE OPERATOR 12/20/2020 2:52 PM SEWING MACHINE OPERATOR us Gabino Rodriguez MD LAB BLOOD ORDERABLES Final Re sult [facility] Department [place] [address] * (ABNORMAL) Lipid panel (12/20/2020 2:29 PM SEWING MACHINE OPERATOR) Cholesterol 73 30 - 199 mg/dL [facility] Comment: Interpretive Data Ages < or [...] revised on 2018. Triglycerides 72 <=149 mg/dL [facility] Comment: Interpretive Data Ages < or = [...] revised on 2018. HDL 25(L) >=40 mg/dL [facility] Comment: Interpretive Data Ages < or = [...] on 2018. LDL, calculated 34 <=129 mg/dL [facility] Comment: Interpretive Data Ages < or = [...] revised on 2018. Non-HDL Cholesterol 48 mg/dL [facility] Comment: Interpretive Data Ages < or = [...] last revised on 2018. Chol/HDL ratio 3 [facility] Blood specimen (specimen) 12/20/2020 2:29 PM SEWING MACHINE OPERATOR 12/20/2020 2:49 PM SEWING MACHINE OPERATOR us Gabino Rodriguez MD LAB BLOOD ORDERABLES Edited R esult - Final [facility] Department [place] [address] * CT Abdomen Pelvis WO Contrast (08/11/2013 [...] Cody M.D. MJ:yoshi 08:01 PM 08:01 PM [facility] [EOD] Narrative 08/11/2013 8:05 PM CDT [...] Mild thickening of the rectum unchanged from [id number] exam. This may reflect nondistention with contrast [...] Relevant to Health Maintenance Insurance [employer] MEDICARE [facility] MEDICARE [place] CHO[place] P[place] BLUE [place] CHOICE [place] P[place] Advance Directives For more information, please contact: [phone] Documents on File Type Date Recorded Patient Workforce Consultant Expl anation ADVANCE DIRECTIVE 02/17/2021 8:14 PM Power of Air Lift Operator-Medical ADVANCE DIRECTIVE 01/08/2021 1:22 AM Power of Air Lift Operator-Medical ADVANCE DIRECTIVE 01/08/2021 1:21 AM Power of Air Lift Operator-Financial/Medical * Full Code (Latest Code Status on File) Date Activated Date Inactivated Comments 12/20/2020 11:43 PM 01/09/2021 3:30 PM Care Teams Gear Shaver Set Up Operator Relationship Specialty Start Date End Date No, Physician PCP - General 01/09/21
--- OUTSIDE RECORDS SUMMARY | 2025-04-27 12:19 | XMS_ITS | Clinical Summary ---
Author Organization [place] [id number] [facility] Address [address] [place] [address] Care Team Providers Care Neurology Epilepsy Physician Name Role Phone No, Physician Primary Care Provider [phone] Allergies No known active allergies Medications blood [...] (12/20/2020): Added automatically from request for surgery [id number] Non-pressure chronic ulcer o f other part of right foot with other specified severity 12/20/2020 Overview (12/20/2020): Added automatically from request for surgery [id number] Type 2 diabetes mellitus with foot ulcer (CODE) 12/20/2020 Overview (12/20/2020): Added automatically from request for surgery [id number] Diabetic polyneuropathy asso ciated with type 2 diabetes mellitus 12/20/2020 Overview (12/20/2020): Added automatically from request for surgery [id number] Gangrene of foot 12/20/2020 Overview (12/26/2020): Added automatically from request for surgery [id number] Assessment & Plan (01/16/2021 8:31 AM COLOR SPECIALIST): - Pt has completed 2 weeks of [...] on file Legal Sex Male 5:28 PM COLOR SPECIALIST Gender Identity Not on file Sexual Orientation Not on file Obstetrics History Last Filed Vital Signs Vital Sign Reading Time Taken Comments Blood Pressure 145/73 04/07/2023 2:54 PM CDT Pulse 80 04/07/2023 2:54 PM CDT Temperature 36.7 C (98.1 F) 03/04/2022 3:14 PM CDT Respiratory Rate 18 04/07/2023 2:54 PM CDT Oxygen Saturation 97% 01/09/2021 6:05 AM COLOR SPECIALIST Inhaled Oxygen Concentration - - Weight 70.5 kg (155 lb 6.4 oz) 04/07/2023 2:54 P M CDT Height 170.2 cm (5' 7) 01/09/2023 2:26 PM COLOR SPECIALIST Body Mass Index 24.34 01/09/2023 2:26 PM COLOR SPECIALIST Plan of Treatment Health Maintenance Due Date [...] Ended) 2025 Medical Devices Implanted Type Area Financial Underwriter Device Identifier Shelf Expiration Date Model / Serial / Lot Hardware Left: Wrist Procedures Procedure Name Priority Date/Time Associated Diagnosis Comments HEMOGLOBIN A1C STAT 12/20/2020 2:29 PM COLOR SPECIALIST LIPID PANEL STAT 12/20/2020 2:[address] ABDOMEN PELVIS WO CONTRAST Routine 08/11/2013 12:00 AM CDT from Last 3 Months or Most Recently Relevant to Health Maintenance Results * (ABNORMAL) Hemoglobin A1c (12/20/2020 2:29 PM COLOR SPECIALIST) Hgb A1C 11.9(H) 4.0 - 5.6 % [facility] Estimated Average Glucose 295 mg/dL [facility] Comment: The ADA recommends reporting an estimated Average Glucose (eAG) with all Hemoglobin A1c results using the equation derived from a study of 507 normal and diabetic adults. Minority populations were underrepresented and children were not included. (Diabetes Care 31:8651-3188, 2008). The eAG is not equivalent to a fasting glucose. Blood specimen (specimen) 12/20/2020 2:29 PM COLOR SPECIALIST 12/20/2020 2:52 PM COLOR SPECIALIST us Gabino Rodriguez MD LAB BLOOD ORDERABLES Final Re sult [facility] Department [place] [address] * (ABNORMAL) Lipid panel (12/20/2020 2:29 PM COLOR SPECIALIST) Cholesterol 73 30 - 199 mg/dL [facility] Comment: Interpretive Data Ages < or [...] revised on 2018. Triglycerides 72 <=149 mg/dL [facility] Comment: Interpretive Data Ages < or [...] revised on 2018. HDL 25(L) >=40 mg/dL [facility] Comment: Interpretive Data Ages < or [...] on 2018. LDL, calculated 34 <=129 mg/dL [facility] Comment: Interpretive Data Ages < or [...] revised on 2018. Non-HDL Cholesterol 48 mg/dL [facility] Comment: Interpretive Data Ages < or [...] last revised on 2018. Chol/HDL ratio [address] [facility] Blood specimen (specimen) 12/20/2020 2:29 PM COLOR SPECIALIST 12/20/2020 2:49 PM COLOR SPECIALIST us Gabino Rodriguez MD LAB BLOOD ORDERABLES Edited R esult - Final [facility] Department [place] [address] * CT Abdomen Pelvis WO Contrast (08/11/2013 [...] Cody M.D. MJ:yoshi 08:01 PM 08:01 PM [facility] [EOD] Narrative 08/11/2013 8:05 PM CDT [...] Mild thickening of the rectum unchanged from [id number] exam. This may reflect nondistention with contrast [...] Cody M.D. MJ:yoshi 08:01 PM 08:01 PM [facility] [EOD] us Historical Provider MD PALM CT PROCEDURES Final R esult from Last 3 Months or Most Recently Relevant to Health Maintenance Insurance [facility] MEDICARE [facility] MEDICARE CHO[place] Advance Directives For more information, please contact: [phone] Documents on File Type Date Recorded Patient Regional Company Truck Driver Expl anation ADVANCE DIRECTIVE 02/17/2021 8:14 PM Power of Licensed Insurance Sales Agent-Medical ADVANCE DIRECTIVE 01/08/2021 1:22 AM Power of Licensed Insurance Sales Agent-Medical ADVANCE DIRECTIVE 01/08/2021 1:21 AM Power of Licensed Insurance Sales Agent-Financial/Medical * Full Code (Latest Code Status on File) Date Activated Date Inactivated Comments 12/20/2020 11:43 PM 01/09/2021 3:30 PM Care Teams Neurology Epilepsy Physician Relationship Specialty Start Date End Date No, Physician PCP - General 01/09/21
[2025-04-27 13:00] LABS: Add Urine Microscopic? YES; Appearance Urine Cloudy (Clear); Bacteria Urine None Seen /hpf; Bilirubin Urine Negative (Negative); Blood Urine Negative (Negative); Budding Yeast Urine Present /hpf; Color Urine Yellow (Yellow); Glucose Urine UA 2+ mg/dL (Negative); Ketones Urine Trace mg/dL (Negative); Leukocyte Esterase Ur Trace LEU/UL (Negative); Need Manual Microscopic Reviewed; Nitrate Urine Negative (Negative); Protein Urine 4+ mg/dL (Negative); RBC Urine 0-2 /hpf (0-2); Specific Grav Ur 1.021 (1.001-1.035); Squamous Epithelial Cell Urine Occasional /hpf (Few); Urobilinogen Urine 0.2 mg/dL (<2.0)
--- NOTE | 2025-04-27 13:24 | P.HP_ITS ---
H&P: HPI History of Present Illness Date/Time: 04/27/25 13:24 Chief Complaint: Syncope Narrative: 69-year-old male with past medical history of end-stage renal disease on hemodialysis Thursday, hypertension, diabetes, anemia PVD presents the hospital after syncopal event. Patient was walking to the bathroom whenever he felt lightheaded and fell. Patient does not know if he lost consciousness. Patient's ex- believes that he passed out for 10 the 30 seconds. For EMS the patient was hypotensive at 90/60 and was given a 250 mls with improvement blood pressure. Lab work showed leukocytosis at 10.1 anemia at 11.5, sodium of 133, creatinine of 4.58 which is around baseline, UA is cloudy with trace leukocytes and 6-10 wbc's with yeast present. Chest x-ray shows no acute pulmonary process. EKG shows atrial fibrillation with RVR rate of 125 QTC of 440. In the ED they gave him 5 IV metoprolol for AFib with RVR which dropped his pressure again and he received another 250 of IV fluids. Due to patient still being hypotensive he received a total of 1 L fluid while in the emergency room. And was started on diltiazem and Cardiology was consulted. Review of Systems Review of Systems: 12 systems were reviewed and are negativ e except for as per HPI. [facility] [place] Past Medical History Medical History PVD (peripheral vascular disease) Anemia End stage renal disease Urinary retention Overweight (BMI 25.0-29.9) Diarrhea HTN (hypertension) IBS (irritable bowel syndrome) Diabetes Surgical History Surgical History Status post below knee amputation of right lower extremity S/P dialysis catheter insertion S/P arteriovenous (AV) fistula creation Family History Family History Father Congestive heart failure Mother Cancer Social History Social History Smoking status: Never smoker Second hand tobacco smoke exposure: Yes Alcohol intake: former Drinks per week: 0 Substance use: never Substance use type: does not use Do You Feel Safe in your Home?: Yes Lack of Transportation: No Lack of Food: Never True Current Housing: I Have Housing Concerned About Future Housing: No Difficulty Paying Gas/Electric Bills: No Difficulty Paying for Meds: No Currently Unemployed: No Education: High School Diploma/GED Difficulty w/ Childcare or Family Care: No Living arrangements: with family Spiritual care concerns: No Meds Home Medications and Allergies Home Medications ?Medication ?Instructions ?Recorded ?Confirmed ?Type ferrous sulfate 324 mg (65 mg 324 mg PO DAILY 12/16/23 04/27/25 History iron) tablet,delayed release tamsulosin 0.4 mg capsule 0.4 mg PO DAILY 12/16/23 04/27/25 History amlodipine 5 mg tablet 5 mg PO DAILY 02/10/24 04/27/25 History ergocalciferol (vitamin D2) 1,250 1,250 mcg PO WEEKLY 02/10/24 04/27/25 History mcg (50,000 unit) capsule aspirin 325 mg tablet,delayed 325 mg PO QAM 30 days #30 tabs 03/05/25 04/27/25 Rx release metoprolol tartrate 25 mg tablet 25 mg PO DAILY 04/27/25 04/27/25 History Allergies Allergy/AdvReac Type Severity Reaction Status Date / Time No Known Allergies Allergy Verified 04/27/25 10:42 Vital Signs Vital Signs - 24 hr 04/27/25 10:21 04/27/25 10:45 04/27/25 10:47 Temperature 97.7 F Pulse Rate 133 H 124 H 126 H Respiratory Rate 22 H 19 Blood Pressure 121/91 H 130/75 Pulse Oximetry 98 100 Oxygen Delivery Room Air 04/27/25 10:47 04/27/25 11:50 04/27/25 12:57 Temperature Pulse Rate 136 H 112 H Respiratory Rate 20 Blood Pressure 107/72 Pulse Oximetry 100 97 Oxygen Delivery Room Air Exam Narrative: General: well appearing, appears stated age. HEENT: normocephalic, atraumatic. Mucous membranes moist. EOMI, PERRLA, bilateral sclera anicteric, no conjunctival injection. Neck supple without JVD, lymphadenopathy, or bruit. Respiratory: clear to ascultation bilaterally. No rales/rhonic/wheezes. Cardiovascular: Regular rate and rhythm, normal S1-S2 upon ascultation. No murmurs, rubs, or clicks. PMI is nondisplaced, capillary refill less than 3 second. Abdomen: Soft, round, no pulsatile masses, nondistended and nontender. No rebound, no guarding. No CVA tenderness, no hepatosplenomegaly. Bowel sounds present to all four quadrants. No high pitch or tinkling sounds, resonant to percussion. Extremities: No cyanosis, clubbing, or edema present. Pulses are palpable 2/2. Right lower extremity BKA Neuro: Alert and orientated x 4. PERRLA. Cranial nerves 2-12 intact without focal deficit. Skin: Warm, dry, and intact, without rash, erythema, or lesion. Psych: pleasant, cooperative, normal speech, normal affect, no hallucinations, no dysarthia H&P: Results Labs Labs: Short CBC 04/27/25 Range/Units 10:48 WBC 10.1 H (4.5-10.0) K/mm3 Hgb 11.5 L (14.0-18.0) g/dL Hct 33.5 L (42.0-52.0) % Plt Count 115 L (150-375) k/mm3 BMP 04/27/25 10:48 Sodium 133 L Potassium 3.7 Chloride 96 L Carbon Dioxide 25 BUN 53 H Creatinine 4.58 H Glucose 213 H Calcium 8.9 Liver Function 04/27/25 Range/Units 10:48 Total Bilirubin 0.2 (0.2-1.3) mg/dL AST 21 (17-59) U/L ALT 17 (6-50) U/L Alkaline Phosphatase 72 (38-126) U/L Albumin 3.8 (3.5-5.1) g/dL Urine 04/27/25 Range/Units 11:48 Urine Color Yellow (Yellow) Urine Appearance Cloudy H (Clear) Urine pH 5.0 (5.0-9.0) Ur Specific [place] 1.021 (1.001-1.035) Urine Protein 4+ H (Negative) mg/dL Urine Glucose (UA) 2+ H (Negative) mg/dL Assessment and Plan Assessment and plan (1) Syncope: Qualifiers: Syncope type: unspecified Qualified Code(s): R55 - Syncope and collapse Code(s): R55 - Syncope and collapse Status: Acute Assessment and Plan: Likely from UTI and hypotension Syncopal workup Telemetry monitoring Orthostatic vital signs Echocardiogram with bubble study (2) Atrial fibrillation with RVR: Code(s): I48.91 - Unspecified atrial fibrillation Status: Acute Assessment and Plan: Cardiology consulted Diltiazem drip (3) Acute UTI: Code(s): N39.0 - Urinary tract infection, site not specified Status: Acute Assessment and Plan: UA with leukocyte esterase and yeast Culture and sensitivity pending IV Rocephin (4) Diabetes: Code(s): E11.9 - Type 2 diabetes mellitus without complications Status: Acute Assessment and Plan: Hemoglobin A1c 5.9 on 03/04/2025 Diabetic diet Ros[place]-Jennifer [email or web address] HS SSI (5) ESRD on hemodialysis: Code(s): N18.6 - End stage renal disease; Z99.2 - Dependence on renal dialysis Status: Acute Assessment and Plan: Nephrology consulted Patient does dialysis normally on Thursday He states that this week because he had appointment on Thursday he did dialysis on Thursday and Thursday (6) Hypotension: Code(s): I95.9 - Hypotension, unspecified Status: Acute Assessment and Plan: Appears to be euvolemic Improved with a total of 1 L fluid bolus Monitor for fluid overload (7) HTN (hypertension): Code(s): I10 - Essential (primary) hypertension Status: Chronic Assessment and Plan: Currently holding home medications due to hypotension (8) Hypermagnesemia: Code(s): E83.41 - Hypermagnesemia Status: Acute Assessment and Plan: Managed through dialysis Quality VTE Prophylaxis VTE prophylaxis: mechanical ordered Hospitalist MIPS Advance Care Plan I have confirmed that the patient's Advanced Care Plan is present, code status is documented, or surrogate decision maker is listed in patient medical record.: Yes Medication Reconciliation I have utilized all available resources to obtain, update and review the patients current medications (includes all prescriptions, OTC, herbals, cannabis, and nutritional supplements).: Yes
[2025-04-27] MEDS: dilTIAZem 100 MG/100 ML 100 MG/100 ML BAG IV CONT (13:44)
--- NOTE | 2025-04-27 14:46 | PC.NURSE ---
Lunch tray ordered
[2025-04-27 15:16] LABS: Glucose Point of Care 134 mg/dl (65-105)
--- NOTE | 2025-04-27 15:58 | PM.CNCAR ---
Assessment and Plan Assessment and plan (1) PAF (paroxysmal atrial fibrillation): Code(s): I48.0 - Paroxysmal atrial fibrillation Status: Acute Assessment and Plan: Back in atrial fibrillation with RVR. [id number] 3. On Metoprolol. On aspirin. Discuss anticoagulation but given ESRD cannot go with DOAC, and given significant anemia, concern for bleeding and worsening anemia. Discuss referral for Watchman device, but he is not interested at this time. Currently on Diltiazem drip for rate control. Start Flecainide 50 mg BID to restore sinus rhythm. Decrease Metoprolol Succinate 12.5 mg daily. Start Eliquis 2.5 mg BID for anticoagulation. Check echo. (2) HTN (hypertension): Code(s): I10 - Essential (primary) hypertension Status: Chronic Assessment and Plan: Relative hypotension. Stop Amlodipine. (3) Syncope: Qualifiers: Syncope type: unspecified Qualified Code(s): R55 - Syncope and collapse Code(s): R55 - Syncope and collapse Status: Acute Assessment and Plan: Could be due to volume depletion as he was hypotensive. History of Present Illness History of Present Illness Consult date/time: 04/27/25 15:58 Reason For Visit: syncopal event GLF Narrative: 69 yr old man who is my regular cardiology patient and a patient of Dr. Galarza presents to ER with syncope. He has a history of PAF, , diastolic dysfunction, DM, hypertension, ESRD on HD, right BKA from DM. His ex- and daughter are at bedside. Reports he was walking in his house to restroom when he fell back and passed out for a second. He does not recall feeling dizzy. He was confused for a minute afterwards as per his family who were present. He was hospitalized on 03/03/25 with new onset PAF, rate controlled and converted to sinus rhythm. He has no energy, feels weak and only walks around the house. He does not sleep well, and sleeps all the time. Denies chest pain, sob, orthopnea, PND, edema, dizziness, palpitations. Cardiovascular Procedures Echo/MUGA:: 03/04/25 Echo: EF 60-65%, mild LVH, grade I diastolic dysfunction (E/e' 26), severe LAE, mild DAMIAN, mild (BUBBA 1.9 cm2), mild MR. 04/26/24 Echo: EF 65-70%, mild LVH, grade I diastolic dysfunction (E/e' 20), trace MR, mild TR. 03/31/22 Echo: EF 55-60%, mod LVH, grade I diastolic dysfunction (E/e' 18), mild LAE, mild (BUBBA 1.9 cm2), mild MR, trace TR, RVSP 53 mmHg. Electrophysiology:: 02/10/24 EKG: Sinus rhythm. Stress Tests:: 03/30/24 Lexiscan myoview: Negative. Review of Systems Review of Systems: All systems reviewed & are unremarkable except as noted in HPI and below Constitutional: Constitutional: Reports as per HPI, Denies chills and Denies fever(s) Cardiovascular: Cardiovascular: Reports as per HPI, Denies chest pain and Denies irregular heart rhythm Respiratory: Respiratory: Reports as per HPI and Reports dyspnea Gastrointestinal: Gastrointestinal: Reports as per HPI and Denies abdominal pain Genitourinary: Genitourinary: Reports as per HPI and Denies dysuria Musculoskeletal: Musculoskeletal: Reports as per HPI Neurologic: Reports as per HPI, Denies dizziness and Reports syncope COUNTS INCLUDE 234 BEDS AT THE [facility] Past Medical History Medical History PVD (peripheral vascular disease) Anemia End stage renal disease Urinary retention Overweight (BMI 25.0-29.9) Diarrhea HTN (hypertension) IBS (irritable bowel syndrome) Diabetes Surgical History Surgical History Status post below knee amputation of right lower extremity S/P dialysis catheter insertion S/P arteriovenous (AV) fistula creation Family History Family History Father Congestive heart failure Mother Cancer Social History Social History Smoking status: Never smoker Second hand tobacco smoke exposure: No Alcohol intake: never Substance use: never Substance use type: does not use Do You Feel Safe in your Home?: Yes Lack of Transportation: No Lack of Food: Never True Current Housing: I Have Housing Concerned About Future Housing: No Difficulty Paying Gas/Electric Bills: No Difficulty Paying for Meds: No Currently Unemployed: No Education: Decline to Answer Difficulty w/ Childcare or Family Care: No Living arrangements: with family Spiritual care concerns: No Meds Home Medications and Allergies Home Medications ?Medication ?Instructions ?Recorded ?Confirmed ?Type ferrous sulfate 324 mg (65 mg 324 mg PO DAILY 12/16/23 03/13/25 History iron) tablet,delayed release tamsulosin 0.4 mg capsule 0.4 mg PO DAILY 12/16/23 03/13/25 History amlodipine 5 mg tablet 10 mg PO DAILY 02/10/24 03/13/25 History ergocalciferol (vitamin D2) 1,250 1,250 mcg PO WEEKLY 02/10/24 03/13/25 History mcg (50,000 unit) capsule aspirin 325 mg tablet,delayed 325 mg PO QAM 30 days #30 tabs 03/05/25 03/13/25 Rx release metoprolol tartrate 25 mg tablet 25 mg PO Q12HR 30 days #60 tabs 03/05/25 03/13/25 Rx Allergies Allergy/AdvReac Type Severity Reaction Status Date / Time No Known Allergies Allergy Verified 04/27/25 10:42 Vital Signs Vital Signs - 24 hr 04/27/25 10:21 04/27/25 10:45 04/27/25 10:47 Temperature 97.7 F Pulse Rate 133 H 124 H 126 H Respiratory Rate 22 H 19 Blood Pressure 121/91 H 130/75 Pulse Oximetry 98 100 Oxygen Delivery Room Air 04/27/25 10:47 04/27/25 11:50 04/27/25 12:57 Temperature Pulse Rate 136 H 112 H Respiratory Rate 20 Blood Pressure 107/72 Pulse Oximetry 100 97 Oxygen Delivery Room Air 04/27/25 13:39 04/27/25 13:44 04/27/25 14:51 Temperature Pulse Rate 116 H 121 H 125 H Respiratory Rate 24 H 20 Blood Pressure 107/72 102/79 100/63 Pulse Oximetry 100 98 Oxygen Delivery Exam Const: General: cooperative, healthy appearing and comfortable Resp: Auscultation: clear to auscultation bilaterally, no crackles, no rales, no rhonchi and no wheezes Cardio: Rate: tachycardic Rhythm: abnormal rhythm Heart sounds: Murmur heart sound present (I/ systolic murmur RICS) Peripheral pulses: dorsalis pedis present GI: GI Palp: No abdominal tenderness and Yes Soft to palpation Neuro: General: oriented to person, oriented to place and oriented to time Extrem: Right lower extremity: no edema Other: Right leg prosthesis Results Labs and Meds 04/27/25 10:48 04/27/25 10:48 Lab results: Cardiac Enzymes 04/27/25 Range/Units 10:48 AST 21 (17-59) U/L CBC 04/27/25 Range/Units 10:48 WBC 10.1 H (4.5-10.0) K/mm3 RBC 3.64 L (4.6-6.20) M/mm3 Hgb 11.5 L (14.0-18.0) g/dL Hct 33.5 L (42.0-52.0) % Plt Count 115 L (150-375) k/mm3 Lymph # (Auto) 5.47 H (0.9-3.2) K/mm3 [place] # (Auto) 0.6 (0.1-0.6) K/mm3 Eos # (Auto) 0.2 (0-0.3) K/mm3 Baso # (Auto) 0.1 (0.0-0.1) K/mm3 Comprehensive Metabolic Panel 04/27/25 Range/Units 10:48 Sodium 133 L (137-145) mmol/L Potassium 3.7 (3.4-5.0) mmol/L Chloride 96 L (98-107) mmol/L Carbon Dioxide 25 (22-30) mmol/L BUN 53 H (9-20) mg/dL Creatinine 4.58 H (0.7-1.3) mg/dL Glucose 213 H (65-110) mg/dL Calcium 8.9 (8.4-10.2) mg/dL AST 21 (17-59) U/L ALT 17 (6-50) U/L Alkaline Phosphatase 72 (38-126) U/L Total Protein 6.6 (6.3-8.2) g/dL Albumin 3.8 (3.5-5.1) g/dL Intake and Output 04/26/25 04/27/25 04/27/25 23:59 07:59 15:59 Intake Total 1250 Balance 1250 Intake: IV 1250 Sodium Chloride 0.9% IV 1,000 1000 ml @ 999 mls/hr IV CONT .Q1H1M STA Rx#:[id number] Sodium Chloride 0.9% IV 250 ml 250 @ 999 mls/hr IV CONT .Q16M STA Rx#:[id number] Patient Weight 04/27/25 23:59 Weight 78.4 kg
[2025-04-27 17:51] LABS: Glucose Point of Care 204 mg/dl (65-105)
--- NOTE | 2025-04-27 18:12 | ADMGEN ---
This patient, Sukhdev Lowery III, was admitted to IMU Room 201-01 at 1724. Patient/family oriented to hospital policies and general routines including ID bracelet, bed and alarms, visiting hours, pain management, procedures, bathroom and other care routines, personal items, smoking policy, room service/diet, and visiting hours. Information on how to activate the Rapid Response Team has been discussed. Patient/Family are encouraged to report perceived risks to care and to ask questions if they do not understand what they are told or what they should do.
[2025-04-27] MEDS: INSULIN ASPART (*BKC) 100 UNITS/ML SUB-Q (18:36)
[2025-04-27 20:14] LABS: Glucose Point of Care 172 mg/dl (65-105)
[2025-04-27 20:16] LABS: MRSA (PCR) NOT DETECTED (NOT DETECTE)
[2025-04-27] MEDS: FLECAINIDE ACETATE 50 MG TABLET PO (20:44)
[2025-04-27] MEDS: APIXABAN 2.5 MG TABLET PO (20:44)
[2025-04-28] VITALS (29 sets, daily range): BP systolic 123–163; BP diastolic 52–98; PULSE 56–79; RESP 16–20; TEMP 35.6–37; O2SAT 96–100
[2025-04-28 05:04] LABS: Basophils Absolute Auto 0.1 K/mm3 (0.0-0.1); Basophils Percent Auto 0.6 % (0.2-1.2); Eosinophils Absolute Auto 0.2 K/mm3 (0-0.3); Eosinophils Percent Auto 1.8 % (0-4.4); Hematocrit 29.4 % (42.0-52.0); Hemoglobin 9.8 g/dL (14.0-18.0); Immature Granulocyte Absolute 0.02 K/mm3 (0.00-0.031); Immature Granulocyte Percent A 0.2 % (0-0.5); Lymphocytes Absolute Auto 6.85 K/mm3 (0.9-3.2); Lymphocytes Percent Auto 63.1 % (18.3-44.2); Mean Corpuscular HGB Conc 33.3 g/dl (32-36); Mean Corpuscular Hemoglobin 31.5 pg (26-34); Mean Corpuscular Volume 94.5 fl (80-100); Monocytes Absolute Auto 0.6 K/mm3 (0.1-0.6); Monocytes Percent Auto 5.2 % (2.6-8.5); Neutrophils Absolute Auto 3.2 K/mm3 (1.3-6.7); Neutrophils Percent Auto 29.1 % (45.5-73.1); Platelet Count Result 110 k/mm3 (150-375); Red Blood Count 3.11 M/mm3 (4.6-6.20); Red Cell Distribution Width 13.6 % (11.5-14.5); White Blood Count 10.9 K/mm3 (4.5-10.0)
--- NOTE | 2025-04-28 05:19 | ECG_ITS ---
Test Date: 2025-04-28 06:06:55 Measurements Intervals [place] Rate: 61 P: 50 MI: 184 QRS: -35 QRSD: 113 T: 21 QT: 456 QTc: 461 Interpretive Statements SINUS RHYTHM LEFT AXIS DEVIATION INTRAVENTRICULAR CONDUCTION DELAY BASELINE ARTIFACT- II, III, AVL, AVF, V1 BORDERLINE ECG Compared to ECG 04/27/2025 10:36:18 ATRIAL FIBRILLATION NO LONGER PRESENT Electronically Signed On 04-28-2025 06:31:11 CDT by Nilson Jerez D.O.
[2025-04-28 05:24] LABS: Anion Gap 12 mmol/L (4-12); Blood Urea Nitrogen 70 mg/dL (9-20); Calcium 8.3 mg/dL (8.4-10.2); Carbon Dioxide 22 mmol/L (22-30); Chloride 100 mmol/L (98-107); Estimated CRCL calculation 11 ml/min; Estimated Glomerular Filt Rate 10; Glucose 120 mg/dL (65-110); Potassium 3.6 mmol/L (3.4-5.0); Sodium 134 mmol/L (137-145)
--- NOTE | 2025-04-28 06:47 | ECG_ITS ---
Test Date: 2025-04-28 11:58:49 Measurements Intervals [place] Rate: 74 P: 35 CT: 166 QRS: -31 QRSD: 120 T: 29 QT: 400 QTc: 444 Interpretive Statements SINUS RHYTHM LEFT AXIS DEVIATION POSSIBLE LEFT ATRIAL ENLARGEMENT INTRAVENTRICULAR CONDUCTION DELAY BASELINE ARTIFACT- I, II, III, AVR, AVL, AVF, V1-V6 BORDERLINE ECG Compared to ECG 04/28/2025 06:06:55 No significant changes Electronically Signed On 04-28-2025 12:02:50 CDT by Nilson Jerez D.O.
[2025-04-28 07:22] LABS: Glucose Point of Care 138 mg/dl (65-105)
--- NOTE | 2025-04-28 07:47 | P.PNIM_ITS ---
Progress Note: A&P Assessment and Plan (1) Syncope: Qualifiers: Syncope type: unspecified Qualified Code(s): R55 - Syncope and collapse Code(s): R55 - Syncope and collapse Status: Acute Assessment and Plan: Likely from UTI and hypotension Syncopal workup Telemetry monitoring Orthostatic vital signs Echocardiogram with bubble study (2) Atrial fibrillation with RVR: Code(s): I48.91 - Unspecified atrial fibrillation Status: Acute Assessment and Plan: Cardiology consulted Diltiazem drip (3) Acute UTI: Code(s): N39.0 - Urinary tract infection, site not specified Status: Acute Assessment and Plan: UA with leukocyte esterase and yeast Culture and sensitivity pending IV Rocephin (4) Diabetes: Code(s): E11.9 - Type 2 diabetes mellitus without complications Status: Acute Assessment and Plan: Hemoglobin A1c 5.9 on 03/04/2025 Diabetic diet Khushi-Jennifer sims HS SSI (5) ESRD on hemodialysis: Code(s): N18.6 - End stage renal disease; Z99.2 - Dependence on renal dialysis Status: Acute Assessment and Plan: Nephrology consulted Patient does dialysis normally on Thursday He states that this week because he had appointment on Thursday he did dialysis on Thursday and Thursday (6) Hypotension: Code(s): I95.9 - Hypotension, unspecified Status: Acute Assessment and Plan: Appears to be euvolemic Improved with a total of 1 L fluid bolus Monitor for fluid overload (7) HTN (hypertension): Code(s): I10 - Essential (primary) hypertension Status: Chronic Assessment and Plan: Currently holding home medications due to hypotension (8) Hypermagnesemia: Code(s): E83.41 - Hypermagnesemia Status: Acute Assessment and Plan: Managed through dialysis Subjective Date/time seen: 04/28/25 07:47 Interval history: 69-year-old male with past medical history of end-stage renal disease on hemodialysis Thursday, hypertension, diabetes, anemia PVD presents the hospital after syncopal event. Patient was evaluated along with the bedside his daughter. Patient has a past medical history of lupus, AFib and CHF. Patient uses cane due to prosthetic leg on his right. 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 Patient recently had syncopal episodes. Review of Systems Review of Systems: 12 systems were reviewed and are negativ e except for as per HPI. Exam Narrative: General: well appearing, appears stated age. HEENT: normocephalic, atraumatic. Mucous membranes moist. EOMI, PERRLA, bilateral sclera anicteric, no conjunctival injection. Neck supple without JVD, lymphadenopathy, or bruit. Respiratory: clear to ascultation bilaterally. No rales/rhonic/wheezes. Cardiovascular: Regular rate and rhythm, normal S1-S2 upon ascultation. No murmurs, rubs, or clicks. PMI is nondisplaced, capillary refill less than 3 second. Abdomen: Soft, round, no pulsatile masses, nondistended and nontender. No rebound, no guarding. No CVA tenderness, no hepatosplenomegaly. Bowel sounds present to all four quadrants. No high pitch or tinkling sounds, resonant to percussion. Extremities: No cyanosis, clubbing, or edema present. Pulses are palpable 2/2. Right lower extremity BKA Neuro: Alert and orientated x 4. PERRLA. Cranial nerves 2-12 intact without focal deficit. Skin: Warm, dry, and intact, without rash, erythema, or lesion. Psych: pleasant, cooperative, normal speech, normal affect, no hallucinations, no dysarthia Objective Data Vital Signs Vital Signs: Vital Signs - 24 hr 04/27/25 10:21 04/27/25 10:45 04/27/25 10:47 Temperature 97.7 F Pulse Rate 133 H 124 H 126 H Respiratory Rate 22 H 19 Blood Pressure 121/91 H 130/75 Pulse Oximetry 98 100 Oxygen Delivery Room Air 04/27/25 10:47 04/27/25 11:50 04/27/25 12:57 Temperature Pulse Rate 136 H 112 H Respiratory Rate 20 Blood Pressure 107/72 Pulse Oximetry 100 97 Oxygen Delivery Room Air 04/27/25 13:39 04/27/25 13:44 04/27/25 14:51 Temperature Pulse Rate 116 H 121 H 125 H Respiratory Rate 24 H 20 Blood Pressure 107/72 102/79 100/63 Pulse Oximetry 100 98 Oxygen Delivery 04/27/25 16:32 04/27/25 17:44 04/27/25 18:00 Temperature 98.1 F Pulse Rate 105 H 94 114 H Respiratory Rate 22 H 20 Blood Pressure 115/55 L 114/63 Pulse Oximetry 99 99 Oxygen Delivery 04/27/25 19:57 04/27/25 19:57 04/27/25 19:58 Temperature 98.1 F Pulse Rate 114 H 64 64 Respiratory Rate 20 20 Blood Pressure 114/63 Pulse Oximetry 99 99 Oxygen Delivery Room Air 04/27/25 20:00 04/27/25 20:00 04/27/25 20:44 Temperature 98.1 F Pulse Rate 62 65 65 Respiratory Rate 18 Blood Pressure 122/58 L Pulse Oximetry 100 Oxygen Delivery 04/27/25 22:00 04/27/25 23:00 04/28/25 00:00 Temperature 98.2 F Pulse Rate 62 61 63 Respiratory Rate 16 Blood Pressure 123/55 L Pulse Oximetry 96 Oxygen Delivery 04/28/25 00:00 04/28/25 00:00 04/28/25 00:00 Temperature Pulse Rate 61 61 61 Respiratory Rate 16 Blood Pressure Pulse Oximetry 96 Oxygen Delivery Room Air 04/28/25 02:00 04/28/25 04:00 04/28/25 04:00 Temperature 97.9 F Pulse Rate 56 L 63 56 L Respiratory Rate 16 Blood Pressure 129/67 Pulse Oximetry 98 Oxygen Delivery 04/28/25 04:00 04/28/25 06:11 Temperature Pulse Rate 56 L 61 Respiratory Rate 16 Blood Pressure Pulse Oximetry 98 Oxygen Delivery Room Air Intake/Output Intake/Output: Intake & Output 04/25/25 04/26/25 04/27/25 04/28/25 23:59 23:59 23:59 23:59 Intake Total 1581.3 320 Output Total 350 Balance 1581.3 -30 Meds/Results Medications: Active Medications Generic Name Dose Route Start Last Admin Trade Name Freq PRN Reason Stop Dose Admin Acetaminophen 650 mg 04/27/25 14:32 Acetaminophen 325 Mg Tablet PO Q4H PRN Mild Pain (1-3) or Fever Apixaban 2.5 mg 04/27/25 21:00 04/27/25 20:44 Apixaban 2.5 Mg Tablet PO 2.5 mg Q12HR SUPA Administration Aspirin 325 mg 04/28/25 09:00 Aspirin 325 Mg Enteric Tablet PO QAM SUPA Dextrose 12.5 gm 04/27/25 14:32 Dextrose 50% 25 Gm/50 Ml Syringe IV PUSH PRN PRN Hypoglycemia Protocol Epoetin Christian-epbx 10,000 units 04/28/25 18:12 Epoetin Christian-Epbx 10,000 Units/Ml Vial IV PUSH 04/28/25 18:13 ONCE ONE Ergocalciferol 1,250 mcg 04/29/25 09:00 Ergocalciferol (Vitamin D2) 1,250 Mcg (50,000 Units) Capsule PO Sa@0900 SUPA Flecainide Acetate 50 mg 04/27/25 21:00 04/27/25 20:44 Flecainide Acetate 50 Mg Tablet PO 50 mg Q12HR SUPA Administration Glucagon 1 mg 04/27/25 14:32 Glucagon For Inj 1 Mg Vial IM PRN PRN Hypoglycemia Protocol Glucose 15 gm 04/27/25 14:32 Glucose Oral Gel 15 Gm Of Glucse In 37.5 Gm Tube PO PRN PRN Hypoglycemia Protocol Dextrose 1,000 mls @ 100 mls/hr 04/27/25 14:32 Dextrose 5% 1,000 Ml IVPB PRN PRN Hypoglycemia Protocol Ceftriaxone Sodium 1 gm in 50 mls @ 100 mls/hr 04/27/25 15:00 04/27/25 16:55 Rocephin 1 Gm/Ns 50 Ml IVPB Infused Q24H SUPA Infusion Albumin Human 50 mls @ 999 mls/hr 04/28/25 06:11 Albutein IVPB 05/28/25 06:10 Q10M PRN HYPOTENSION Insulin Aspart 3 - 6 units 04/27/25 17:00 04/27/25 18:36 Insulin Aspart (*Bkc) 100 Units/Ml SUB-Q 3 units TIDWM SUPA Administration Protocol Insulin Aspart 1 - 3 units 04/27/25 21:00 04/27/25 23:45 Insulin Aspart (*Bkc) 100 Units/Ml SUB-Q Not Given HS [facility] Protocol Metoprolol Succinate 25 mg 04/28/25 09:00 Metoprolol Succinate Ext Rel 25 Mg Tabcr PO QAM [facility] Perflutren Lipid Microsphere 0 ml 04/27/25 14:35 Perflutren Lipid Microspheres 1.5 Ml Vial Diluted To 10 Ml Total Volume IV PUSH 04/30/25 14:36 ONCE PRN adequate visualization Protocol Tamsulosin HCl 0.4 mg 04/28/25 09:00 Tamsulosin Hcl 0.4 Mg Capsule PO DAILY [facility] Radiology Results: ITS Impressions Chest X-Ray 04/27/25 11:24 IMPRESSION: 1: NO ACUTE CARDIOPULMONARY DISEASE. Labs Labs: Laboratory Results - last 24 hr 04/27/25 04/27/25 04/27/25 10:48 10:48 11:48 WBC 10.1 H RBC 3.64 L Hgb 11.5 L Hct 33.5 L MCV 92.0 MCH 31.6 MCHC 34.3 RDW 13.4 Plt Count 115 L MPV 8.9 Immature Gran % (Auto) 0.2 Neut % (Auto) 37.5 L Lymph % (Auto) 54.0 H [place] % (Auto) 5.9 Eos % (Auto) 1.7 Baso % (Auto) 0.7 Lymph # (Auto) 5.47 H [place] # (Auto) 0.6 Eos # (Auto) 0.2 Baso # (Auto) 0.1 Abs Immat Gran (auto) 0.02 Absolute Neuts (auto) 3.8 Absolute Nucleated RBC 0.000 Nucleated RBC % 0.0 D-Dimer 0.32 Sodium 133 L Potassium 3.7 Chloride 96 L Carbon Dioxide 25 Anion Gap 12 BUN 53 H Creatinine 4.58 H Estim Creat Clear Calc 13 Estimated GFR 13 L Glucose 213 H POC Capillary Glucose Calcium 8.9 Magnesium 2.4 H Cancelled Total Bilirubin 0.2 AST 21 ALT 17 Alkaline Phosphatase 72 Total Protein 6.6 Albumin 3.8 Urine Color Yellow Urine Appearance Cloudy H Urine pH 5.0 Ur Specific [place] 1.021 Urine Protein 4+ H Urine Glucose (UA) 2+ H Urine Ketones Trace H Ur Blood (Man) Negative Urine Nitrate Negative Urine Bilirubin Negative Urine Urobilinogen 0.2 Add Ur Microanalysis Reviewed Leukocyte Esterase Rfl Trace H Urine RBC 0-2 Urine WBC 6-10 H Ur Squamous Epith Cells Occasional Urine Bacteria None seen Urine Casts 6-10 Urine Yeast (Budding) Present H Nasal MRSA (PCR) 04/27/25 04/27/25 04/27/25 15:12 17:49 18:59 WBC RBC Hgb Hct MCV MCH MCHC RDW Plt Count MPV Immature Gran % (Auto) Neut % (Auto) Lymph % (Auto) Cross % (Auto) Eos % (Auto) Baso % (Auto) Lymph # (Auto) Cross # (Auto) Eos # (Auto) Baso # (Auto) Abs Immat Gran (auto) Absolute Neuts (auto) Absolute Nucleated RBC Nucleated RBC % D-Dimer Sodium Potassium Chloride Carbon Dioxide Anion Gap BUN Creatinine Estim Creat Clear Calc Estimated GFR Glucose POC Capillary Glucose 134 H 204 H Calcium Magnesium Total Bilirubin AST ALT Alkaline Phosphatase Total Protein Albumin Urine Color Urine Appearance Urine pH Ur Specific [place] Urine Protein Urine Glucose (UA) Urine Ketones Ur Blood (Man) Urine Nitrate Urine Bilirubin Urine Urobilinogen Add Ur Microanalysis Leukocyte Esterase Rfl Urine RBC Urine WBC Ur Squamous Epith Cells Urine Bacteria Urine Casts Urine Yeast (Budding) Nasal MRSA (PCR) Not detected 04/27/25 04/28/25 04/28/25 20:11 04:17 07:16 WBC 10.9 H RBC 3.11 L Hgb 9.8 L Hct 29.4 L MCV 94.5 MCH 31.5 MCHC 33.3 RDW 13.6 Plt Count 110 L MPV 10.0 Immature Gran % (Auto) 0.2 Neut % (Auto) 29.1 L Lymph % (Auto) 63.1 H Cross % (Auto) 5.2 Eos % (Auto) 1.8 Baso % (Auto) 0.6 Lymph # (Auto) 6.85 H Cross # (Auto) 0.6 Eos # (Auto) 0.2 Baso # (Auto) 0.1 Abs Immat Gran (auto) 0.02 Absolute Neuts (auto) 3.2 Absolute Nucleated RBC 0.000 Nucleated RBC % 0.0 D-Dimer Sodium 134 L Potassium 3.6 Chloride 100 Carbon Dioxide 22 Anion Gap 12 BUN 70 H D Creatinine 5.92 H Estim Creat Clear Calc 11 Estimated GFR 10 L Glucose 120 H POC Capillary Glucose 172 H 138 H Calcium 8.3 L Magnesium Total Bilirubin AST ALT Alkaline Phosphatase Total Protein Albumin Urine Color Urine Appearance Urine pH Ur Specific [place] Urine Protein Urine Glucose (UA) Urine Ketones Ur Blood (Man) Urine Nitrate Urine Bilirubin Urine Urobilinogen Add Ur Microanalysis Leukocyte Esterase Rfl Urine RBC Urine WBC Ur Squamous Epith Cells Urine Bacteria Urine Casts Urine Yeast (Budding) Nasal MRSA (PCR) Quality VTE Prophylaxis VTE prophylaxis: mechanical ordered Hospitalist MIPS Advance Care Plan I have confirmed that the patient's Advanced Care Plan is present, code status is documented, or surrogate decision maker is listed in patient medical record.: Yes Medication Reconciliation I have utilized all available resources to obtain, update and review the patients current medications (includes all prescriptions, OTC, herbals, cannabis, and nutritional supplements).: Yes
--- NOTE | 2025-04-28 07:56 | PM.PNCARD ---
Progress Note: A&P Assessment and Plan (1) PAF (paroxysmal atrial fibrillation): Code(s): I48.0 - Paroxysmal atrial fibrillation Status: Acute Assessment and Plan: Back in sinus rhythm. [id number] 3. On Metoprolol. On aspirin. Discuss anticoagulation but given ESRD cannot go with DOAC, and given significant anemia, concern for bleeding and worsening anemia. Discuss referral for Watchman device, but he is not interested at this time. Started 04/27/25 Flecainide 50 mg BID to restore sinus rhythm. Change Metoprolol Succinate 25 mg daily. Start 04/27/25 Eliquis 2.5 mg BID for anticoagulation. 04/27/25 Echo: EF 65-70%, mild LVH, diastolic dysfunction (E/e' 12), mod LAE, mild-mod (BUBBA 1.2 cm2, mean 11 Hg), trace AI/MR/TR. Stopped Diltiazem drip. Will sign off, please call with any questions. F/U with me in 1-2 weeks. (2) HTN (hypertension): Code(s): I10 - Essential (primary) hypertension Status: Chronic Assessment and Plan: Stable. Was relative hypotension. Stopped Amlodipine. (3) Syncope: Qualifiers: Syncope type: unspecified Qualified Code(s): R55 - Syncope and collapse Code(s): R55 - Syncope and collapse Status: Acute Assessment and Plan: Could be due to volume depletion as he was hypotensive. Subjective Date/time seen: 04/28/25 07:56 Interval history: Denies chest pain or sob. Exam Const: General: cooperative, healthy appearing and comfortable Orientation/consciousness: oriented to person, oriented to place and oriented to time Resp: Auscultation: clear to auscultation bilaterally, no crackles, no rales, no rhonchi and no wheezes Cardio: Rate: regular rate Rhythm: regular rhythm Heart sounds: Murmur heart sound present (I/ systolic murmur RICS) Peripheral pulses: dorsalis pedis present Neuro: General: oriented to person, oriented to place and oriented to time Extrem: Right lower extremity: no edema Other: Right leg prosthesis Objective Data Vital Signs Vital Signs: Vital Signs - 24 hr 04/27/25 10:21 04/27/25 10:45 04/27/25 10:47 Temperature 97.7 F Pulse Rate 133 H 124 H 126 H Respiratory Rate 22 H 19 Blood Pressure 121/91 H 130/75 Pulse Oximetry 98 100 Oxygen Delivery Room Air 04/27/25 10:47 04/27/25 11:50 04/27/25 12:57 Temperature Pulse Rate 136 H 112 H Respiratory Rate 20 Blood Pressure 107/72 Pulse Oximetry 100 97 Oxygen Delivery Room Air 04/27/25 13:39 04/27/25 13:44 04/27/25 14:51 Temperature Pulse Rate 116 H 121 H 125 H Respiratory Rate 24 H 20 Blood Pressure 107/72 102/79 100/63 Pulse Oximetry 100 98 Oxygen Delivery 04/27/25 16:32 04/27/25 17:44 04/27/25 18:00 Temperature 98.1 F Pulse Rate 105 H 94 114 H Respiratory Rate 22 H 20 Blood Pressure 115/55 L 114/63 Pulse Oximetry 99 99 Oxygen Delivery 04/27/25 19:57 04/27/25 19:57 04/27/25 19:58 Temperature 98.1 F Pulse Rate 114 H 64 64 Respiratory Rate 20 20 Blood Pressure 114/63 Pulse Oximetry 99 99 Oxygen Delivery Room Air 04/27/25 20:00 04/27/25 20:00 04/27/25 20:44 Temperature 98.1 F Pulse Rate 62 65 65 Respiratory Rate 18 Blood Pressure 122/58 L Pulse Oximetry 100 Oxygen Delivery 04/27/25 22:00 04/27/25 23:00 04/28/25 00:00 Temperature 98.2 F Pulse Rate 62 61 63 Respiratory Rate 16 Blood Pressure 123/55 L Pulse Oximetry 96 Oxygen Delivery 04/28/25 00:00 04/28/25 00:00 04/28/25 00:00 Temperature Pulse Rate 61 61 61 Respiratory Rate 16 Blood Pressure Pulse Oximetry 96 Oxygen Delivery Room Air 04/28/25 02:00 04/28/25 04:00 04/28/25 04:00 Temperature 97.9 F Pulse Rate 56 L 63 56 L Respiratory Rate 16 Blood Pressure 129/67 Pulse Oximetry 98 Oxygen Delivery 04/28/25 04:00 04/28/25 06:11 04/28/25 07:46 Temperature 97.4 F L Pulse Rate 56 L 61 62 Respiratory Rate 16 20 Blood Pressure 141/54 H Pulse Oximetry 98 98 Oxygen Delivery Room Air Intake/Output Intake/Output: Intake & Output 04/25/25 04/26/25 04/27/25 04/28/25 23:59 23:59 23:59 23:59 Intake Total 1581.3 320 Output Total 350 Balance 1581.3 -30 Meds/Results Medications: Active Medications Generic Name Dose Route Start Last Admin Trade Name Freq PRN Reason Stop Dose Admin Acetaminophen 650 mg 04/27/25 14:32 Acetaminophen 325 Mg Tablet PO Q4H PRN Mild Pain (1-3) or Fever Apixaban 2.5 mg 04/27/25 21:00 04/27/25 20:44 Apixaban 2.5 Mg Tablet PO 2.5 mg Q12HR SUPA Administration Aspirin 325 mg 04/28/25 09:00 Aspirin 325 Mg Enteric Tablet PO QAM SUPA Dextrose 12.5 gm 04/27/25 14:32 Dextrose 50% 25 Gm/50 Ml Syringe IV PUSH PRN PRN Hypoglycemia Protocol Epoetin Christian-epbx 10,000 units 04/28/25 18:12 Epoetin Christian-Epbx 10,000 Units/Ml Vial IV PUSH 04/28/25 18:13 ONCE ONE Ergocalciferol 1,250 mcg 04/29/25 09:00 Ergocalciferol (Vitamin D2) 1,250 Mcg (50,000 Units) Capsule PO Sa@0900 SUPA Flecainide Acetate 50 mg 04/27/25 21:00 04/27/25 20:44 Flecainide Acetate 50 Mg Tablet PO 50 mg Q12HR SUPA Administration Glucagon 1 mg 04/27/25 14:32 Glucagon For Inj 1 Mg Vial IM PRN PRN Hypoglycemia Protocol Glucose 15 gm 04/27/25 14:32 Glucose Oral Gel 15 Gm Of Glucse In 37.5 Gm Tube PO PRN PRN Hypoglycemia Protocol Dextrose 1,000 mls @ 100 mls/hr 04/27/25 14:32 Dextrose 5% 1,000 Ml IVPB PRN PRN Hypoglycemia Protocol Ceftriaxone Sodium 1 gm in 50 mls @ 100 mls/hr 04/27/25 15:00 04/27/25 16:55 Rocephin 1 Gm/Ns 50 Ml IVPB Infused Q24H SUPA Infusion Albumin Human 50 mls @ 999 mls/hr 04/28/25 06:11 Albutein IVPB 05/28/25 06:10 Q10M PRN HYPOTENSION Insulin Aspart 3 - 6 units 04/27/25 17:00 04/27/25 18:36 Insulin Aspart (*Bkc) 100 Units/Ml SUB-Q 3 units TIDWM [facility] Administration Protocol Insulin Aspart 1 - 3 units 04/27/25 21:00 04/27/25 23:45 Insulin Aspart (*Bkc) 100 Units/Ml SUB-Q Not Given HS SUPA Protocol Metoprolol Succinate 25 mg 04/28/25 09:00 Metoprolol Succinate Ext Rel 25 Mg Tabcr PO QAM [facility] Perflutren Lipid Microsphere 0 ml 04/27/25 14:35 Perflutren Lipid Microspheres 1.5 Ml Vial Diluted To 10 Ml Total Volume IV PUSH 04/30/25 14:36 ONCE PRN adequate visualization Protocol Tamsulosin HCl 0.4 mg 04/28/25 09:00 Tamsulosin Hcl 0.4 Mg Capsule PO DAILY [facility] Radiology Results: ITS Impressions Chest X-Ray 04/27/25 11:24 IMPRESSION: 1: NO ACUTE CARDIOPULMONARY DISEASE. Labs Labs: Laboratory Results - last 24 hr 04/27/25 04/27/25 04/27/25 10:48 10:48 11:48 WBC 10.1 H RBC 3.64 L Hgb 11.5 L Hct 33.5 L MCV 92.0 MCH 31.6 MCHC 34.3 RDW 13.4 Plt Count 115 L MPV 8.9 Immature Gran % (Auto) 0.2 Neut % (Auto) 37.5 L Lymph % (Auto) 54.[address] [place] % (Auto) 5.9 Eos % (Auto) 1.7 Baso % (Auto) 0.7 Lymph # (Auto) 5.[address] [place] # (Auto) 0.6 Eos # (Auto) 0.2 Baso # (Auto) 0.1 Abs Immat Gran (auto) 0.02 Absolute Neuts (auto) 3.8 Absolute Nucleated RBC 0.000 Nucleated RBC % 0.0 D-Dimer 0.32 Sodium 133 L Potassium 3.7 Chloride 96 L Carbon Dioxide 25 Anion Gap 12 BUN 53 H Creatinine 4.58 H Estim Creat Clear Calc 13 Estimated GFR 13 L Glucose 213 H POC Capillary Glucose Calcium 8.9 Magnesium 2.4 H Cancelled Total Bilirubin 0.2 AST 21 ALT 17 Alkaline Phosphatase 72 Total Protein 6.6 Albumin 3.8 Urine Color Yellow Urine Appearance Cloudy H Urine pH 5.0 Ur Specific [place] 1.021 Urine Protein 4+ H Urine Glucose (UA) 2+ H Urine Ketones Trace H Ur Blood (Man) Negative Urine Nitrate Negative Urine Bilirubin Negative Urine Urobilinogen 0.2 Add Ur Microanalysis Reviewed Leukocyte Esterase Rfl Trace H Urine RBC 0-2 Urine WBC 6-10 H Ur Squamous Epith Cells Occasional Urine Bacteria None seen Urine Casts 6-10 Urine Yeast (Budding) Present H Nasal MRSA (PCR) 04/27/25 04/27/25 04/27/25 15:12 17:49 18:59 WBC RBC Hgb Hct MCV MCH MCHC RDW Plt Count MPV Immature Gran % (Auto) Neut % (Auto) Lymph % (Auto) [place] % (Auto) Eos % (Auto) Baso % (Auto) Lymph # (Auto) [place] # (Auto) Eos # (Auto) Baso # (Auto) Abs Immat Gran (auto) Absolute Neuts (auto) Absolute Nucleated RBC Nucleated RBC % D-Dimer Sodium Potassium Chloride Carbon Dioxide Anion Gap BUN Creatinine Estim Creat Clear Calc Estimated GFR Glucose POC Capillary Glucose 134 H 204 H Calcium Magnesium Total Bilirubin AST ALT Alkaline Phosphatase Total Protein Albumin Urine Color Urine Appearance Urine pH Ur Specific [place] Urine Protein Urine Glucose (UA) Urine Ketones Ur Blood (Man) Urine Nitrate Urine Bilirubin Urine Urobilinogen Add Ur Microanalysis Leukocyte Esterase Rfl Urine RBC Urine WBC Ur Squamous Epith Cells Urine Bacteria Urine Casts Urine Yeast (Budding) Nasal MRSA (PCR) Not detected 04/27/25 04/28/25 04/28/25 20:11 04:17 07:16 WBC 10.9 H RBC 3.11 L Hgb 9.8 L Hct 29.4 L MCV 94.5 MCH 31.5 MCHC 33.3 RDW 13.6 Plt Count 110 L MPV 10.0 Immature Gran % (Auto) 0.2 Neut % (Auto) 29.1 L Lymph % (Auto) 63.[address] [place] % (Auto) 5.2 Eos % (Auto) 1.8 Baso % (Auto) 0.6 Lymph # (Auto) 6.[address] [place] # (Auto) 0.6 Eos # (Auto) 0.2 Baso # (Auto) 0.1 Abs Immat Gran (auto) 0.02 Absolute Neuts (auto) 3.2 Absolute Nucleated RBC 0.000 Nucleated RBC % 0.0 D-Dimer Sodium 134 L Potassium 3.6 Chloride 100 Carbon Dioxide 22 Anion Gap 12 BUN 70 H D Creatinine 5.92 H Estim Creat Clear Calc 11 Estimated GFR 10 L Glucose 120 H POC Capillary Glucose 172 H 138 H Calcium 8.3 L Magnesium Total Bilirubin AST ALT Alkaline Phosphatase Total Protein Albumin Urine Color Urine Appearance Urine pH Ur Specific [place] Urine Protein Urine Glucose (UA) Urine Ketones Ur Blood (Man) Urine Nitrate Urine Bilirubin Urine Urobilinogen Add Ur Microanalysis Leukocyte Esterase Rfl Urine RBC Urine WBC Ur Squamous Epith Cells Urine Bacteria Urine Casts Urine Yeast (Budding) Nasal MRSA (PCR)
--- NOTE | 2025-04-28 09:15 | P.CONNP_ITS ---
Assessment and Plan Assessment and plan (1) End stage renal disease: Code(s): N18.6 - End stage renal disease Status: Chronic Assessment and Plan: * normally does home hemodialysis 4x/week * HD today * electrolytes, volume status, and clearance acceptable * plan next HD treatment on Thursday if he remains hospitalized (2) Syncope: Qualifiers: Syncope type: unspecified Qualified Code(s): R55 - Syncope and collapse Code(s): R55 - Syncope and collapse Status: Acute Assessment and Plan: * presumably from UTI and hypotension * follow telemetry * Cardiology recommendations noted * Echo results reviewed (3) Atrial fibrillation with RVR: Code(s): I48.91 - Unspecified atrial fibrillation Status: Acute Assessment and Plan: * back in normal sinus rhythm * continue rate control strategy * anticoagulation(?) * Echo results noted * Cardiology following (4) Acute UTI: Code(s): N39.0 - Urinary tract infection, site not specified Status: Acute Assessment and Plan: * admission UA highly suggestive * follow urine culture results * on antibiotics (5) Anemia: Code(s): D64.9 - Anemia, unspecified Status: Acute Assessment and Plan: * due to ESRD * getting ALEX with HD * follow trend of H/H (6) HTN (hypertension): Code(s): I10 - Essential (primary) hypertension Status: Chronic Assessment and Plan: * reasonable control at this time * use of metoprolol likely assisting with better control * initially hypotensive on admission * s/p IVF boluses * follow trend of hemodynamics (7) Diabetes: Code(s): E11.9 - Type 2 diabetes mellitus without complications Status: Acute Assessment and Plan: * follow accu-checks * appears diet control as an outpatinet * glycemic control per hospitalists I will continue follow the patient with you while remains hospitalized and make further recommendations as deemed necessary. Thank you for allowing me to participate in the care of this patient. L History of Present Illness Reason for Consult Consult date: 04/28/25 Reason for consult: end stage renal disease Chief Complaint Chief complaint: Syncope History of Present Illness Narrative: The patient is a 69-year-old male with a past medical history as outlined below who presented to [facility] ER due to syncope. The patient was apparently walking to the bathroom when he suddnetly felt lightheaded and fell. He is not clear if he lost consciousness or not. However, his family thinks he passed out for 10 - 30 seconds. Following this event, 911 was called and EMS arrived for further assessment. According to EMS, the patient was hypotensive with a BP of 90/60 and was given a 250 mls with improvement blood pressure. He was subsequently transferred to the ER for further evaluation. By the time of his arrival to the ER, he was hemodynamically stable and in no acute distress. Routine labs demonstrated a leukocytosis at 10.1 anemia at 11.5, sodium of 133, creatinine of 4.58 and no critical electrolyte abnormalities. His UA was cloudy with trace leukocytes and 6-10 wbc's with yeast present. Chest x-ray showed no acute pulmonary process. His EKG showed atrial fibrillation with RVR rate of 125. He was given IV metoprolol for AFib with RVR which dropped his pressure again and he had to receive another 250 of IV fluids. Due to patient still being hypotensive, he received a total of 1 L fluid while in the emergency room. He was subsequetly started on diltiazem and Cardiology was consulted. He was admitted for further treatment. Since admission, he has been seen by Cardiology with adjustment in his medications for his atrial fibrillation for better rate control. Renal consultation was requested due to his end-stage renal disease. The patient normally does home hemodialysis 4x/week through [facility] under my care. He performed his last home hemodialysis treatment on Thursday and it was apparently uneventful. From a dialysis perspective, he has been doing well with home hemodialysis with ongoing support from his family. His daughter performs his dialysis treatments at home. He usually has stable monthly labs with regard to his ESRD paramenters. Currently, at the time of my visit, he appears to be in no acute distress and tolerating dialysis at this time (seen on HD at 9:05am). Review of Systems 2 Review of Systems: As per HPI. [facility] Past Medical History Medical History PVD (peripheral vascular disease) Anemia End stage renal disease Urinary retention Overweight (BMI 25.0-29.9) Diarrhea HTN (hypertension) IBS (irritable bowel syndrome) Diabetes Surgical History Surgical History Status post below knee amputation of right lower extremity S/P dialysis catheter insertion S/P arteriovenous (AV) fistula creation Family History Family History Father Congestive heart failure Mother Cancer Social History Social History Smoking status: Never smoker Second hand tobacco smoke exposure: Yes Alcohol intake: former Drinks per week: 0 Substance use: never Substance use type: does not use Do You Feel Safe in your Home?: Yes Lack of Transportation: No Lack of Food: Never True Current Housing: I Have Housing Concerned About Future Housing: No Difficulty Paying Gas/Electric Bills: No Difficulty Paying for Meds: No Currently Unemployed: No Education: High School Diploma/GED Difficulty w/ Childcare or Family Care: No Living arrangements: with family Spiritual care concerns: No Meds Home Medications and Allergies Home Medications ?Medication ?Instructions ?Recorded ?Confirmed ?Type ferrous sulfate 324 mg (65 mg 324 mg PO DAILY 12/16/23 04/27/25 History iron) tablet,delayed release tamsulosin 0.4 mg capsule 0.4 mg PO DAILY 12/16/23 04/27/25 History amlodipine 5 mg tablet 5 mg PO DAILY 02/10/24 04/27/25 History ergocalciferol (vitamin D2) 1,250 1,250 mcg PO WEEKLY 02/10/24 04/27/25 History mcg (50,000 unit) capsule aspirin 325 mg tablet,delayed 325 mg PO QAM 30 days #30 tabs 03/05/25 04/27/25 Rx release amoxicillin 500 mg-potassium 1 tablet PO Q12HR 4 days #8 tabs 05/03/25 Rx clavulanate 125 mg tablet (Augmentin) apixaban 2.5 mg tablet (Eliquis) 2.5 mg PO Q12HR 30 days #60 tabs 05/03/25 Rx doxycycline hyclate 100 mg tablet 100 mg PO Q12HR 4 days #8 tabs 05/03/25 Rx flecainide 50 mg tablet 50 mg PO Q12HR 30 days #60 tabs 05/03/25 Rx metoprolol succinate 25 mg 25 mg PO QAM 30 days #30 tabs 05/03/25 Rx tablet,extended release 24 hr (Toprol XL) midodrine 2.5 mg tablet 2.5 mg PO BID 10 days #20 tabs 05/03/25 Rx Allergies Allergy/AdvReac Type Severity Reaction Status Date / Time No Known Allergies Allergy Verified 04/27/25 10:42 Vital Signs Vital Signs Temp Pulse Resp BP Pulse Ox O2 Del Method 04/28/25 09:15 67 150/59 H 04/28/25 09:00 69 141/63 H 04/28/25 08:45 67 151/66 H 04/28/25 08:30 67 156/68 H 04/28/25 08:15 69 148/62 H 04/28/25 08:01 68 149/69 H 04/28/25 08:00 67 04/28/25 07:52 97.7 F 67 16 146/67 H 100 04/28/25 07:46 97.4 F L 62 20 141/54 H 98 04/28/25 06:11 61 04/28/25 04:00 56 L 16 98 Room Air 04/28/25 04:00 56 L 04/28/25 04:00 97.9 F 63 16 129/67 98 04/28/25 02:00 56 L 04/28/25 00:00 61 04/28/25 00:00 61 04/28/25 00:00 61 16 96 Room Air 04/28/25 00:00 98.2 F 63 16 123/55 L 96 04/27/25 23:00 61 04/27/25 22:00 62 04/27/25 20:44 65 04/27/25 20:00 65 04/27/25 20:00 98.1 F 62 18 122/58 L 100 04/27/25 19:58 64 04/27/25 19:57 64 20 99 Room Air 04/27/25 19:57 98.1 F 114 H 20 114/63 99 04/27/25 18:00 114 H 04/27/25 17:44 98.1 F 94 20 114/63 99 04/27/25 16:32 105 H 22 H 115/55 L 99 04/27/25 14:51 125 H 20 100/63 98 04/27/25 13:44 121 H 102/79 04/27/25 13:39 116 H 24 H 107/72 100 04/27/25 12:57 112 H 20 107/72 97 Exam 2 Narrative: GENERAL APPEARANCE: elderly but well developed well nourished male in no acute distress HEENT: normocephalic, atraumatic, pallor to conjunctiva and sclera, nares patient NECK: no lymphadenopathy, thyromegaly, or JVD MOUTH: normal lips, teeth, and gums CARDIOVASCULAR: normal S1 and S2, no rub RESPIRATORY: clear anteriorly ABDOMEN: soft, nontender, nondistended, positive bowel sounds present EXTREMITIES: no evidence of cyanosis, clubbing, or edema; s/p right BKA NEUROLOGICAL: alert and oriented x 3; CN II - XII intact bilaterally; no focal deficits noted Results Lab Results 05/02/25 04:39 05/02/25 04:39 Lab results: Most recent lab results Calcium 8.3 mg/dL (8.4-10.2) L 04/28/25 04:17 Magnesium 2.4 mg/dL (1.6-2.3) H 04/27/25 10:48 Magnesium Cancelled 04/27/25 10:48
[2025-04-28] MEDS: TAMSULOSIN HCL 0.4 MG CAPSULE PO (12:02)
[2025-04-28] MEDS: ASPIRIN 325 MG ENTERIC TABLET PO (12:02)
[2025-04-28] MEDS: APIXABAN 2.5 MG TABLET PO ×2 (12:02→20:49)
[2025-04-28] MEDS: METOPROLOL SUCCINATE EXT REL 25 MG TABCR PO (12:02)
[2025-04-28] MEDS: FLECAINIDE ACETATE 50 MG TABLET PO ×2 (12:03→20:49)
[2025-04-28 12:11] LABS: Glucose Point of Care 151 mg/dl (65-105)
--- NOTE | 2025-04-28 13:27 | PC.NURSE ---
Pt moved to room 244 at 1323. Report given to MONIQUE Marie.
[2025-04-28] MEDS: EPOETIN ALFA-EPBX 10,000 UNITS/ML VIAL 10000 UNITS SUB-Q (14:36)
[2025-04-28] MEDS: amLODIPine BESYLATE 5 MG TABLET PO (17:26)
[2025-04-28 17:35] LABS: Glucose Point of Care 165 mg/dl (65-105)
[2025-04-28 20:31] LABS: Glucose Point of Care 180 mg/dl (65-105)
[2025-04-29] VITALS (14 sets, daily range): BP systolic 132–157; BP diastolic 55–88; PULSE 64–78; RESP 16–20; TEMP 36.6–36.8; O2SAT 98
[2025-04-29 05:48] LABS: Hematocrit 28.6 % (42.0-52.0); Hemoglobin 9.7 g/dL (14.0-18.0); Mean Corpuscular HGB Conc 33.9 g/dl (32-36); Mean Corpuscular Hemoglobin 32.1 pg (26-34); Mean Corpuscular Volume 94.7 fl (80-100); Mean Platelet Volume 9.7 fl (7.4-10.4); Platelet Count Result 114 k/mm3 (150-375); Red Blood Count 3.02 M/mm3 (4.6-6.20); Red Cell Distribution Width 13.5 % (11.5-14.5); White Blood Count 9.6 K/mm3 (4.5-10.0)
[2025-04-29 06:07] LABS: Alanine Aminotransferase 12 U/L (6-50); Albumin Level 3.5 g/dL (3.5-5.1); Alkaline Phosphatase 62 U/L (38-126); Anion Gap 9 mmol/L (4-12); Aspartate Amino Transferase 19 U/L (17-59); Bilirubin,Total 0.1 mg/dL (0.2-1.3); Blood Urea Nitrogen 39 mg/dL (9-20); Calcium 8.2 mg/dL (8.4-10.2); Carbon Dioxide 26 mmol/L (22-30); Chloride 103 mmol/L (98-107); Estimated CRCL calculation 15 ml/min; Estimated Glomerular Filt Rate 14; Glucose 121 mg/dL (65-110); Potassium 3.7 mmol/L (3.4-5.0); Sodium 138 mmol/L (137-145); Total Protein 6.1 g/dL (6.3-8.2)
[2025-04-29 08:09] LABS: Glucose Point of Care 139 mg/dl (65-105)
[2025-04-29] MEDS: TAMSULOSIN HCL 0.4 MG CAPSULE PO (08:47)
[2025-04-29] MEDS: METOPROLOL SUCCINATE EXT REL 25 MG TABCR PO (08:47)
[2025-04-29] MEDS: amLODIPine BESYLATE 5 MG TABLET PO (08:48)
[2025-04-29] MEDS: APIXABAN 2.5 MG TABLET PO ×2 (08:48→22:01)
[2025-04-29] MEDS: FLECAINIDE ACETATE 50 MG TABLET PO ×2 (08:48→22:01)
[2025-04-29] MEDS: ERGOCALCIFEROL (VITAMIN D2) 1,250 MCG (50,000 UNITS) CAPSULE 1250 MCG PO (08:52)
--- NOTE | 2025-04-29 11:35 | P.PNNP_ITS ---
Progress Note: A&P Assessment and Plan (1) End stage renal disease: Code(s): N18.6 - End stage renal disease Status: Chronic Assessment and Plan: * HD yesterday * normally does home hemodialysis 4x/week * electrolytes, volume status, and clearance acceptable * plan next HD treatment on Thursday if he remains hospitalized (2) Syncope: Qualifiers: Syncope type: unspecified Qualified Code(s): R55 - Syncope and collapse Code(s): R55 - Syncope and collapse Status: Acute Assessment and Plan: * presumably from UTI and hypotension * follow telemetry * CT of Brain noted * Neurology consulted for opinion * Cardiology recommendations noted * Echo results reviewed (3) Atrial fibrillation with RVR: Code(s): I48.91 - Unspecified atrial fibrillation Status: Acute Assessment and Plan: * back in normal sinus rhythm * continue rate control strategy * anticoagulation(?) * Echo results noted * Cardiology following (4) Acute UTI: Code(s): N39.0 - Urinary tract infection, site not specified Status: Acute Assessment and Plan: * admission UA highly suggestive * follow urine culture results * on antibiotics (5) Anemia: Code(s): D64.9 - Anemia, unspecified Status: Acute Assessment and Plan: * due to ESRD * getting ALEX with HD * follow trend of H/H (6) HTN (hypertension): Code(s): I10 - Essential (primary) hypertension Status: Chronic Assessment and Plan: * reasonable control at this time * use of metoprolol likely assisting with better control * initially hypotensive on admission * s/p IVF boluses * follow trend of hemodynamics (7) Diabetes: Code(s): E11.9 - Type 2 diabetes mellitus without complications Status: Acute Assessment and Plan: * follow accu-checks * appears diet control as an outpatinet * glycemic control per hospitalist Will continue to follow. Subjective Date/time seen: 04/29/25 11:35 Interval history: Follow-up for end stage renal disease on hemodialysis. Tolerated dialysis treatment yesterday without any issues or problems; overall, feels reasonably well; no acute issues/events overnight or earlier this morning; asking me when he can go home. Exam Narrative: General: elderly but WD/WN male in NAD Heart: normal S1 and S2; no rub Lungs: coarse at baseses Abdomen: soft, nontender, nondistended, positive bowel sounds Extremities: no cyanosis or clubbing; no edema Skin: warm and dry Objective Data Vital Signs Vital Signs: Vital Signs Temp Pulse Resp BP Pulse Ox O2 Del Method 04/29/25 09:05 132/55 L 04/29/25 09:05 143/61 H 04/29/25 09:00 145/67 H 04/29/25 08:48 18 98 Room Air 04/29/25 08:48 97.8 F 73 18 98 04/29/25 08:48 73 04/29/25 08:47 73 04/29/25 08:02 69 04/29/25 05:50 97.8 F 66 18 151/88 H 98 04/29/25 04:00 70 04/29/25 00:00 66 04/28/25 21:28 97.6 F 69 18 157/98 H 100 04/28/25 20:49 74 04/28/25 20:00 73 Intake/Output Intake/Output: Intake & Output 04/26/25 04/27/25 04/28/25 04/29/25 23:59 23:59 23:59 23:59 Intake Total 1581.3 2430 1170 Output Total 2300 Balance 1581.3 130 1170 Meds/Results Medications: Active Medications Generic Name Dose Route Start Last Admin Trade Name Freq PRN Reason Stop Dose Admin Acetaminophen 650 mg 04/27/25 14:32 Acetaminophen 325 Mg Tablet PO Q4H PRN Mild Pain (1-3) or Fever Amlodipine Besylate 5 mg 04/28/25 17:00 04/29/25 08:48 Amlodipine Besylate 5 Mg Tablet PO 5 mg DAILY SUPA Administration Apixaban 2.5 mg 04/27/25 21:00 04/29/25 08:48 Apixaban 2.5 Mg Tablet PO 2.5 mg Q12HR SUPA Administration Dextrose 12.5 gm 04/27/25 14:32 Dextrose 50% 25 Gm/50 Ml Syringe IV PUSH PRN PRN Hypoglycemia Protocol Ergocalciferol 1,250 mcg 04/29/25 09:00 04/29/25 08:52 Ergocalciferol (Vitamin D2) 1,250 Mcg (50,000 Units) Capsule PO 1,250 mcg Sa@0900 SUPA Administration Flecainide Acetate 50 mg 04/27/25 21:00 04/29/25 08:48 Flecainide Acetate 50 Mg Tablet PO 50 mg Q12HR SUPA Administration Glucagon 1 mg 04/27/25 14:32 Glucagon For Inj 1 Mg Vial IM PRN PRN Hypoglycemia Protocol Glucose 15 gm 04/27/25 14:32 Glucose Oral Gel 15 Gm Of Glucse In 37.5 Gm Tube PO PRN PRN Hypoglycemia Protocol Dextrose 1,000 mls @ 100 mls/hr 04/27/25 14:32 Dextrose 5% 1,000 Ml IVPB PRN PRN Hypoglycemia Protocol Ceftriaxone Sodium 1 gm in 50 mls @ 100 mls/hr 04/27/25 15:00 04/29/25 14:45 Rocephin 1 Gm/Ns 50 Ml IVPB Infused Q24H SUPA Infusion Albumin Human 50 mls @ 999 mls/hr 04/28/25 06:11 Albutein IVPB 05/28/25 06:10 Q10M PRN HYPOTENSION Insulin Aspart 3 - 6 units 04/27/25 17:00 04/29/25 12:11 Insulin Aspart (*Bkc) 100 Units/Ml SUB-Q Not Given TIDWM SUPA Protocol Insulin Aspart 1 - 3 units 04/27/25 21:00 04/29/25 00:34 Insulin Aspart (*Bkc) 100 Units/Ml SUB-Q Not Given HS SUPA Protocol Metoprolol Succinate 25 mg 04/28/25 09:00 04/29/25 08:47 Metoprolol Succinate Ext Rel 25 Mg Tabcr PO 25 mg QAM SUPA Administration Perflutren Lipid Microsphere 0 ml 04/27/25 14:35 Perflutren Lipid Microspheres 1.5 Ml Vial Diluted To 10 Ml Total Volume IV PUSH 04/30/25 14:36 ONCE PRN adequate visualization Protocol Tamsulosin HCl 0.4 mg 04/28/25 09:00 04/29/25 08:47 Tamsulosin Hcl 0.4 Mg Capsule PO 0.4 mg DAILY SUPA Administration Radiology Results: ITS Impressions Chest X-Ray 04/27/25 11:24 IMPRESSION: 1: NO ACUTE CARDIOPULMONARY DISEASE. Carotid Doppler Study 04/28/25 15:08 IMPRESSION: 1. <50% stenosis in the right internal carotid artery. 2. <50% stenosis in the left internal carotid artery. Head CT 04/28/25 15:10 IMPRESSION: 1. 2.1 cm left parafalcine meningioma. No acute intracranial process. Labs Labs: Laboratory Results - last 24 hr 04/29/25 05:01 WBC 9.6 Hgb 9.7 L Hct 28.6 L Plt Count 114 L Sodium 138 Potassium 3.7 Chloride 103 Carbon Dioxide 26 Anion Gap 9 BUN 39 H D Creatinine 4.16 H Estim Creat Clear Calc 15 Estimated GFR 14 L Glucose 121 H POC Capillary Glucose Calcium 8.2 L Total Bilirubin 0.1 L AST 19 ALT 12 Alkaline Phosphatase 62 Total Protein 6.1 L Albumin 3.5
[2025-04-29 12:08] LABS: Glucose Point of Care 142 mg/dl (65-105)
--- NOTE | 2025-04-29 13:26 | P.HP_ITS ---
H&P: HPI History of Present Illness Date/Time: 04/29/25 13:26 [facility] Past Medical History Medical History PVD (peripheral vascular disease) Anemia End stage renal disease Urinary retention Overweight (BMI 25.0-29.9) Diarrhea HTN (hypertension) IBS (irritable bowel syndrome) Diabetes Surgical History Surgical History Status post below knee amputation of right lower extremity S/P dialysis catheter insertion S/P arteriovenous (AV) fistula creation Family History Family History Father Congestive heart failure Mother Cancer Social History Social History Smoking status: Never smoker Second hand tobacco smoke exposure: Yes Alcohol intake: former Drinks per week: 0 Substance use: never Substance use type: does not use Do You Feel Safe in your Home?: Yes Lack of Transportation: No Lack of Food: Never True Current Housing: I Have Housing Concerned About Future Housing: No Difficulty Paying Gas/Electric Bills: No Difficulty Paying for Meds: No Currently Unemployed: No Education: High School Diploma/GED Difficulty w/ Childcare or Family Care: No Living arrangements: with family Spiritual care concerns: No Meds Home Medications and Allergies Home Medications ?Medication ?Instructions ?Recorded ?Confirmed ?Type ferrous sulfate 324 mg (65 mg 324 mg PO DAILY 12/16/23 04/27/25 History iron) tablet,delayed release tamsulosin 0.4 mg capsule 0.4 mg PO DAILY 12/16/23 04/27/25 History amlodipine 5 mg tablet 5 mg PO DAILY 02/10/24 04/27/25 History ergocalciferol (vitamin D2) 1,250 1,250 mcg PO WEEKLY 02/10/24 04/27/25 History mcg (50,000 unit) capsule aspirin 325 mg tablet,delayed 325 mg PO QAM 30 days #30 tabs 03/05/25 04/27/25 Rx release metoprolol tartrate 25 mg tablet 25 mg PO DAILY 04/27/25 04/27/25 History Allergies Allergy/AdvReac Type Severity Reaction Status Date / Time No Known Allergies Allergy Verified 04/27/25 10:42 Vital Signs Vital Signs - 24 hr 04/28/25 16:00 04/28/25 16:00 04/28/25 20:00 Temperature 97.9 F Pulse Rate 69 74 73 Respiratory Rate 16 Blood Pressure 146/88 H Pulse Oximetry 99 Oxygen Delivery 04/28/25 20:49 04/28/25 21:28 04/29/25 00:00 Temperature 97.6 F Pulse Rate 74 69 66 Respiratory Rate 18 Blood Pressure 157/98 H Pulse Oximetry 100 Oxygen Delivery 04/29/25 04:00 04/29/25 05:50 04/29/25 08:02 Temperature 97.8 F Pulse Rate 70 66 69 Respiratory Rate 18 Blood Pressure 151/88 H Pulse Oximetry 98 Oxygen Delivery 04/29/25 08:47 04/29/25 08:48 04/29/25 08:48 Temperature 97.8 F Pulse Rate 73 73 73 Respiratory Rate 18 Blood Pressure Pulse Oximetry 98 Oxygen Delivery 04/29/25 08:48 04/29/25 12:02 Temperature Pulse Rate 67 Respiratory Rate 18 Blood Pressure Pulse Oximetry 98 Oxygen Delivery Room Air H&P: Results Labs Labs: Short CBC 04/29/25 Range/Units 05:01 WBC 9.6 (4.5-10.0) K/mm3 Hgb 9.7 L (14.0-18.0) g/dL Hct 28.6 L (42.0-52.0) % Plt Count 114 L (150-375) k/mm3 BMP 04/29/25 05:01 Sodium 138 Potassium 3.7 Chloride 103 Carbon Dioxide 26 BUN 39 H D Creatinine 4.16 H Glucose 121 H Calcium 8.2 L Liver Function 04/29/25 Range/Units 05:01 Total Bilirubin 0.1 L (0.2-1.3) mg/dL AST 19 (17-59) U/L ALT 12 (6-50) U/L Alkaline Phosphatase 62 (38-126) U/L Albumin 3.5 (3.5-5.1) g/dL Assessment and Plan Assessment and plan (1) HTN (hypertension): Code(s): I10 - Essential (primary) hypertension Status: Chronic Assessment and Plan: bp
--- NOTE | 2025-04-29 14:32 | P.PNIM_ITS ---
Progress Note: A&P Assessment and Plan (1) Syncope: Qualifiers: Syncope type: unspecified Qualified Code(s): R55 - Syncope and collapse Code(s): R55 - Syncope and collapse Status: Acute Assessment and Plan: Likely from meningioma, UTI, mild to moderate aortic valve stenosis, and hypotension Syncopal workup Head CT:2.1 cm left parafalcine meningioma. No acute intracranial process. Carotid Doppler:1. <50% stenosis in the right internal carotid artery. 2. <50% stenosis in the left internal carotid artery. Telemetry monitoring Orthostatic vital signs Echocardiogram with bubble study shows Left ventricular systolic function is normal, estimated at 65-70. left ventricular diastolic function is abnormal.mild to moderate aortic valve stenosis with a peak velocity of 240 cm/s, mean gradient of 11 mmHg, and aortic valve area of 1.2 cm2. Following Neurology and Neurosurgery recommendation (2) Atrial fibrillation with RVR: Code(s): I48.91 - Unspecified atrial fibrillation Status: Acute Assessment and Plan: Back in sinus rhythm. [id number] 3. Discuss anticoagulation but given ESRD cannot go with DOAC, and given significant anemia, concern for bleeding and worsening anemia. Discuss referral for Watchman device, but he is not interested at this time. Cardiology started Flecainide 50 mg BID to restore sinus rhythm. Change Metoprolol Succinate 25 mg daily. Start Eliquis 2.5 mg BID for anticoagulation. (3) Acute UTI: Code(s): N39.0 - Urinary tract infection, site not specified Status: Acute Assessment and Plan: UA with leukocyte esterase and yeast Culture and sensitivity pending IV Rocephin (4) Diabetes: Code(s): E11.9 - Type 2 diabetes mellitus without complications Status: Acute Assessment and Plan: Hemoglobin A1c 5.9 on 03/04/2025 Diabetic diet Accu-Cheks a.c. HS SSI (5) ESRD on hemodialysis: Code(s): N18.6 - End stage renal disease; Z99.2 - Dependence on renal dialysis Status: Acute Assessment and Plan: Nephrology consulted Patient does dialysis normally on Thursday He states that this week because he had appointment on Thursday he did dialysis on Thursday and Thursday (6) Hypotension: Code(s): I95.9 - Hypotension, unspecified Status: Acute Assessment and Plan: Appears to be euvolemic Improved with a total of 1 L fluid bolus Monitor for fluid overload Subjective Date/time seen: 04/29/25 14:32 Interval history: The CT scan shows a meningioma. The CT scan was performed last year shows a meningioma 1.[address] scan shows it has been increased to 2.1. Ashly ent is not aware of meningioma although her daughter says maybe previous provider would have informed to him and he would have forgotten. Discussed with Neurology and reported meningioma can cause imbalance and requested recommendation from Neurosurgery. His syncopal episode can be possibly due to likely from meningioma, UTI, mild to moderate aortic valve stenosis, and hypotension. Review of Systems Review of Systems: 12 systems were reviewed and are negativ e except for as per HPI. Exam Narrative: General: well appearing, appears stated age. HEENT: normocephalic, atraumatic. Mucous membranes moist. EOMI, PERRLA, bilateral sclera anicteric, no conjunctival injection. Neck supple without JVD, lymphadenopathy, or bruit. Respiratory: clear to ascultation bilaterally. No rales/rhonic/wheezes. Cardiovascular: Regular rate and rhythm, normal S1-S2 upon ascultation. No murmurs, rubs, or clicks. PMI is nondisplaced, capillary refill less than 3 second. Abdomen: Soft, round, no pulsatile masses, nondistended and nontender. No rebound, no guarding. No CVA tenderness, no hepatosplenomegaly. Bowel sounds present to all four quadrants. No high pitch or tinkling sounds, resonant to percussion. Extremities: No cyanosis, clubbing, or edema present. Pulses are palpable 2/2. Right lower extremity BKA Neuro: Alert and orientated x 4. PERRLA. Cranial nerves 2-12 intact without focal deficit. Skin: Warm, dry, and intact, without rash, erythema, or lesion. Psych: pleasant, cooperative, normal speech, normal affect, no hallucinations, no dysarthia Objective Data Vital Signs Vital Signs: Vital Signs - 24 hr 04/28/25 16:00 04/28/25 16:00 04/28/25 20:00 Temperature 97.9 F Pulse Rate 69 74 73 Respiratory Rate 16 Blood Pressure 146/88 H Pulse Oximetry 99 Oxygen Delivery 04/28/25 20:49 04/28/25 21:28 04/29/25 00:00 Temperature 97.6 F Pulse Rate 74 69 66 Respiratory Rate 18 Blood Pressure 157/98 H Pulse Oximetry 100 Oxygen Delivery 04/29/25 04:00 04/29/25 05:50 04/29/25 08:02 Temperature 97.8 F Pulse Rate 70 66 69 Respiratory Rate 18 Blood Pressure 151/88 H Pulse Oximetry 98 Oxygen Delivery 04/29/25 08:47 04/29/25 08:48 04/29/25 08:48 Temperature 97.8 F Pulse Rate 73 73 73 Respiratory Rate 18 Blood Pressure Pulse Oximetry 98 Oxygen Delivery 04/29/25 08:48 04/29/25 12:02 Temperature Pulse Rate 67 Respiratory Rate 18 Blood Pressure Pulse Oximetry 98 Oxygen Delivery Room Air Intake/Output Intake/Output: Intake & Output 04/26/25 04/27/25 04/28/25 04/29/25 23:59 23:59 23:59 23:59 Intake Total 1581.3 2430 1120 Output Total 2300 Balance 1581.3 130 1120 Meds/Results Medications: Active Medications Generic Name Dose Route Start Last Admin Trade Name Freq PRN Reason Stop Dose Admin Acetaminophen 650 mg 04/27/25 14:32 Acetaminophen 325 Mg Tablet PO Q4H PRN Mild Pain (1-3) or Fever Amlodipine Besylate 5 mg 04/28/25 17:00 04/29/25 08:48 Amlodipine Besylate 5 Mg Tablet PO 5 mg DAILY SUPA Administration Apixaban 2.5 mg 04/27/25 21:00 04/29/25 08:48 Apixaban 2.5 Mg Tablet PO 2.5 mg Q12HR SUPA Administration Dextrose 12.5 gm 04/27/25 14:32 Dextrose 50% 25 Gm/50 Ml Syringe IV PUSH PRN PRN Hypoglycemia Protocol Ergocalciferol 1,250 mcg 04/29/25 09:00 04/29/25 08:52 Ergocalciferol (Vitamin D2) 1,250 Mcg (50,000 Units) Capsule PO 1,250 mcg Sa@0900 SUPA Administration Flecainide Acetate 50 mg 04/27/25 21:00 04/29/25 08:48 Flecainide Acetate 50 Mg Tablet PO 50 mg Q12HR SUPA Administration Glucagon 1 mg 04/27/25 14:32 Glucagon For Inj 1 Mg Vial IM PRN PRN Hypoglycemia Protocol Glucose 15 gm 04/27/25 14:32 Glucose Oral Gel 15 Gm Of Glucse In 37.5 Gm Tube PO PRN PRN Hypoglycemia Protocol Dextrose 1,000 mls @ 100 mls/hr 04/27/25 14:32 Dextrose 5% 1,000 Ml IVPB PRN PRN Hypoglycemia Protocol Ceftriaxone Sodium 1 gm in 50 mls @ 100 mls/hr 04/27/25 15:00 04/29/25 14:17 Rocephin 1 Gm/Ns 50 Ml IVPB 100 mls/hr Q24H SUPA Administration Albumin Human 50 mls @ 999 mls/hr 04/28/25 06:11 Albutein IVPB 05/28/25 06:10 Q10M PRN HYPOTENSION Insulin Aspart 3 - 6 units 04/27/25 17:00 04/29/25 12:11 Insulin Aspart (*Bkc) 100 Units/Ml SUB-Q Not Given TIDWM SUPA Protocol Insulin Aspart 1 - 3 units 04/27/25 21:00 04/29/25 00:34 Insulin Aspart (*Bkc) 100 Units/Ml SUB-Q Not Given HS SUPA Protocol Metoprolol Succinate 25 mg 04/28/25 09:00 04/29/25 08:47 Metoprolol Succinate Ext Rel 25 Mg Tabcr PO 25 mg QAM SUPA Administration Perflutren Lipid Microsphere 0 ml 04/27/25 14:35 Perflutren Lipid Microspheres 1.5 Ml Vial Diluted To 10 Ml Total Volume IV PUSH 04/30/25 14:36 ONCE PRN adequate visualization Protocol Tamsulosin HCl 0.4 mg 04/28/25 09:00 04/29/25 08:47 Tamsulosin Hcl 0.4 Mg Capsule PO 0.4 mg DAILY SUPA Administration Radiology Results: ITS Impressions Chest X-Ray 04/27/25 11:24 IMPRESSION: 1: NO ACUTE CARDIOPULMONARY DISEASE. Carotid Doppler Study 04/28/25 15:08 IMPRESSION: 1. <50% stenosis in the right internal carotid artery. 2. <50% stenosis in the left internal carotid artery. Head CT 04/28/25 15:10 IMPRESSION: 1. 2.1 cm left parafalcine meningioma. No acute intracranial process. Labs Labs: Laboratory Results - last 24 hr 04/28/25 04/28/25 04/29/25 17:29 20:22 05:01 WBC 9.6 RBC 3.02 L Hgb 9.7 L Hct 28.6 L MCV 94.7 MCH 32.1 MCHC 33.9 RDW 13.5 Plt Count 114 L MPV 9.7 Sodium 138 Potassium 3.7 Chloride 103 Carbon Dioxide 26 Anion Gap 9 BUN 39 H D Creatinine 4.16 H Estim Creat Clear Calc 15 Estimated GFR 14 L Glucose 121 H POC Capillary Glucose 165 H 180 H Calcium 8.2 L Total Bilirubin 0.1 L AST 19 ALT 12 Alkaline Phosphatase 62 Total Protein 6.1 L Albumin 3.5 04/29/25 04/29/25 08:04 12:01 WBC RBC Hgb Hct MCV MCH MCHC RDW Plt Count MPV Sodium Potassium Chloride Carbon Dioxide Anion Gap BUN Creatinine Estim Creat Clear Calc Estimated GFR Glucose POC Capillary Glucose 139 H 142 H Calcium Total Bilirubin AST ALT Alkaline Phosphatase Total Protein Albumin Quality VTE Prophylaxis VTE prophylaxis: mechanical ordered Hospitalist MIPS Advance Care Plan I have confirmed that the patient's Advanced Care Plan is present, code status is documented, or surrogate decision maker is listed in patient medical record.: Yes Medication Reconciliation I have utilized all available resources to obtain, update and review the patients current medications (includes all prescriptions, OTC, herbals, cannabis, and nutritional supplements).: Yes
--- NOTE | 2025-04-29 17:05 | P.CONNEU_ITS ---
Assessment and Plan Assessment and plan (1) Syncope: Qualifiers: Syncope type: unspecified Qualified Code(s): R55 - Syncope and collapse Code(s): R55 - Syncope and collapse Status: Acute (2) PAF (paroxysmal atrial fibrillation): Code(s): I48.0 - Paroxysmal atrial fibrillation Status: Acute (3) Diabetes: Code(s): E11.9 - Type 2 diabetes mellitus without complications Status: Acute (4) ESRD on hemodialysis: Code(s): N18.6 - End stage renal disease; Z99.2 - Dependence on renal dialysis Status: Acute Plan The patient has had syncopal episode on this occasion as well as another 1 in January of 2024. In addition according to the daughter he has a many spells where he feels lightheaded. There has not been any description of a seizure-like event according to the family members. He does have a meningioma which is a measured as 2.1 cm on this admission and was measured at 1.7 cm in January 2024 and 2 cm and May 2024. However these were read by 3 radiologist. On my evaluation I do not see any significant difference in the size of these. I would suggest a neurosurgical evaluation however this can be done an outpatient also. I did discuss this with the family members. The diagnosis of seizure would be difficult given his multiple medical problems and history of atrial fibrillation and fast heart rate. He certainly has other medical reasons to have passing-out spells and whether empirically put him on antiseizure medication based upon the finding of a meningioma was discussed. Generally if the meningioma enlarges or invades into the brain substance or if there is edema constitute to be the cause for the seizures nevertheless the possibility cannot be ruled out. Hence, if the consensus is in favor of putting him on some medication we could use Keppra 750 mg twice a day and have him see a neurosurgeon as an outpatient with regard to meningioma. Consult date: 04/29/25 HPI: Sukhdev Lowery III is a 69 year old maleWith history of diabetes mellitus, chronic kidney disease on hemodialysis presented to the hospital with spell of unresponsiveness. According to the history the patient was wanting to use the bathroom when he felt lightheaded and fell. He does not believe or remember losing consciousness. Patient is ex spouse was at bedside and a has a described that he passed out for 10-30 seconds. His blood pressure was 90 by 60 according to EMS. He was given 250 male so of loss of fluid and blood pressure came up to 110/70. His fingerstick blood glucose was 263. I noted that he was admitted in January 2024 with a spell of unresponsiveness and was suspected of possible seizure-like spell. According to the daughter he has many times that he feels lightheaded however this has been attributed to changes in the blood pressure or atrial fibrillation diabetes mellitus and his multiple medical problems. On this admission he was suspected of urinary tract infection however urine culture did not grow any bacteria of significance. Blood cultures are so far negative. The patient is you feeling in his usual self. He also has a below-knee amputation of the right leg and has the artificial limb in place. He states that he cannot see very well because the loss of vision on the right eye and also partial loss in the left eye and he also has difficulty with hearing. It was noted that he was found to have a meningioma CT scan of brain which has been observed in the previous 2 CT scan of brain. Review of Systems 2 Review of Systems: All systems reviewed & are unremarkable except as noted in HPI and below PMFSH Past Medical History Medical History PVD (peripheral vascular disease) Anemia End stage renal disease Urinary retention Overweight (BMI 25.0-29.9) Diarrhea HTN (hypertension) IBS (irritable bowel syndrome) Diabetes Surgical History Surgical History Status post below knee amputation of right lower extremity S/P dialysis catheter insertion S/P arteriovenous (AV) fistula creation Family History Family History Father Congestive heart failure Mother Cancer Social History Social History Smoking status: Never smoker Second hand tobacco smoke exposure: Yes Alcohol intake: former Drinks per week: 0 Substance use: never Substance use type: does not use Do You Feel Safe in your Home?: Yes Lack of Transportation: No Lack of Food: Never True Current Housing: I Have Housing Concerned About Future Housing: No Difficulty Paying Gas/Electric Bills: No Difficulty Paying for Meds: No Currently Unemployed: No Education: High School Diploma/GED Difficulty w/ Childcare or Family Care: No Living arrangements: with family Spiritual care concerns: No Meds Home Medications and Allergies Home Medications ?Medication ?Instructions ?Recorded ?Confirmed ?Type ferrous sulfate 324 mg (65 mg 324 mg PO DAILY 12/16/23 04/27/25 History iron) tablet,delayed release tamsulosin 0.4 mg capsule 0.4 mg PO DAILY 12/16/23 04/27/25 History amlodipine 5 mg tablet 5 mg PO DAILY 02/10/24 04/27/25 History ergocalciferol (vitamin D2) 1,250 1,250 mcg PO WEEKLY 02/10/24 04/27/25 History mcg (50,000 unit) capsule aspirin 325 mg tablet,delayed 325 mg PO QAM 30 days #30 tabs 03/05/25 04/27/25 Rx release metoprolol tartrate 25 mg tablet 25 mg PO DAILY 04/27/25 04/27/25 History Allergies Allergy/AdvReac Type Severity Reaction Status Date / Time No Known Allergies Allergy Verified 04/27/25 10:42 Vital Signs Vital Signs - 24 hr 04/28/25 20:00 04/28/25 20:49 04/28/25 21:28 Temperature 97.6 F Pulse Rate 73 74 69 Respiratory Rate 18 Blood Pressure 157/98 H Pulse Oximetry 100 Oxygen Delivery 04/29/25 00:00 04/29/25 04:00 04/29/25 05:50 Temperature 97.8 F Pulse Rate 66 70 66 Respiratory Rate 18 Blood Pressure 151/88 H Pulse Oximetry 98 Oxygen Delivery 04/29/25 08:02 04/29/25 08:47 04/29/25 08:48 Temperature Pulse Rate 69 73 73 Respiratory Rate Blood Pressure Pulse Oximetry Oxygen Delivery 04/29/25 08:48 04/29/25 08:48 04/29/25 09:00 Temperature 97.8 F Pulse Rate 73 Respiratory Rate 18 18 Blood Pressure 145/67 H Pulse Oximetry 98 98 Oxygen Delivery Room Air 04/29/25 09:05 04/29/25 09:05 04/29/25 12:02 Temperature Pulse Rate 67 Respiratory Rate Blood Pressure 143/61 H 132/55 L Pulse Oximetry Oxygen Delivery 04/29/25 14:00 Temperature 98.2 F Pulse Rate 64 Respiratory Rate 20 Blood Pressure 138/64 Pulse Oximetry 98 Oxygen Delivery Exam 2 Const: General: cooperative and alert Orientation/consciousness: patient oriented x3 HENMT: Head: atraumatic Mouth: Yes oropharynx normal Eyes: Alignment and Position: position normal EOM: EOMs intact bilaterally Other: Right pupil is larger than the left side and also has decreased response to light. Visual zendejas by confrontation were essentially normal. However he has difficulty with peripheral vision. Neck: Neck: supple Other: No carotid bruit Resp: Effort & Inspection: normal respiratory effort Cardio: Other: a soft ejection systolic murmur noted Skin: General skin exam: normal color Neuro: General: patient oriented x3 Cranial nerves: Yes facial sensation intact/muscles of mastication intact, Yes facial symmetry and Yes Midline tongue present Cognition (Neuro): normal cognition Speech: normal speech Motor exam (neuro): 5/5 motor strength present throughout Coordination: f [id number] test normal and Normal rapid alternating movements of the distal upper extremity present (Neuro) Other: patient has been amputation the right side. Right pupil is larger than left side. Afferent pupillary defect noted on the right side the cranial nerves appeared within acceptable normal limits. No involuntary movements are seen. Results Labs 04/29/25 05:01 04/29/25 05:01 Labs: Short CBC 04/29/25 Range/Units 05:01 WBC 9.6 (4.5-10.0) K/mm3 Hgb 9.7 L (14.0-18.0) g/dL Hct 28.6 L (42.0-52.0) % Plt Count 114 L (150-375) k/mm3 BMP 04/29/25 05:01 Sodium 138 Potassium 3.7 Chloride 103 Carbon Dioxide 26 BUN 39 H D Creatinine 4.16 H Glucose 121 H Calcium 8.2 L Liver Function 04/29/25 Range/Units 05:01 Total Bilirubin 0.1 L (0.2-1.3) mg/dL AST 19 (17-59) U/L ALT 12 (6-50) U/L Alkaline Phosphatase 62 (38-126) U/L Albumin 3.5 (3.5-5.1) g/dL EXAMINATION: CT brain wo con DATE: 04/28/2025 13:56 INDICATION: Syncope TECHNIQUE: Computed tomography (CT) of the head was performed without intravenous contrast. Sagittal and coronal reconstructions were performed. The mA was adjusted according to patient size. Iterative reconstruction technique was employed. The dose-length product was 605.30 mGy-cm. COMPARISON: head CT dated 05/23/24 FINDINGS: No acute intracranial hemorrhage, acute infarction or abnormal extra axial fluid collection. 2.1 x 1.7 x 1.2 cm calcified extra-axial mass positioned along the left side of the falx in the frontoparietal region consistent with a meningioma. Ventricles are normal and symmetric. Changes of bilateral intraocular lens replacement. Postoperative change of prior right mastoidectomy. The paranasal sinuses and left mastoid air cells are normal. IMPRESSION: 1. 2.1 cm left parafalcine meningioma. No acute intracranial process. Reviewed, dictated and finalized at location A. Imaging Attestation: I personally reviewed and interpreted this imaging study as follows: ( CT scan of the brain done on this admission as well as 2 previous admissions once in May 2024 another 1 in January 2024 and noted a para sagittal meningioma close to Falx which appears heavily calcified consistent meningioma.)
[2025-04-29 17:22] LABS: Glucose Point of Care 128 mg/dl (65-105)
[2025-04-29 21:43] LABS: Glucose Point of Care 168 mg/dl (65-105)
[2025-04-30] VITALS (14 sets, daily range): BP systolic 138–149; BP diastolic 60–81; PULSE 68–82; RESP 16–22; TEMP 36.6–37.1; O2SAT 92–100
[2025-04-30 04:52] LABS: Hematocrit 27.2 % (42.0-52.0); Hemoglobin 9.2 g/dL (14.0-18.0); Mean Corpuscular HGB Conc 33.8 g/dl (32-36); Mean Corpuscular Hemoglobin 31.7 pg (26-34); Mean Corpuscular Volume 93.8 fl (80-100); Platelet Count Result 101 k/mm3 (150-375); Red Cell Distribution Width 13.5 % (11.5-14.5); White Blood Count 11.3 K/mm3 (4.5-10.0)
[2025-04-30 05:10] LABS: Alanine Aminotransferase 13 U/L (6-50); Albumin Level 3.6 g/dL (3.5-5.1); Alkaline Phosphatase 64 U/L (38-126); Anion Gap 11 mmol/L (4-12); Aspartate Amino Transferase 21 U/L (17-59); Bilirubin,Total 0.2 mg/dL (0.2-1.3); Blood Urea Nitrogen 60 mg/dL (9-20); Calcium 8.1 mg/dL (8.4-10.2); Carbon Dioxide 22 mmol/L (22-30); Chloride 102 mmol/L (98-107); Estimated CRCL calculation 11 ml/min; Estimated Glomerular Filt Rate 10; Glucose 133 mg/dL (65-110); Potassium 3.8 mmol/L (3.4-5.0); Sodium 135 mmol/L (137-145); Total Protein 6.3 g/dL (6.3-8.2)
[2025-04-30 08:49] LABS: Glucose Point of Care 156 mg/dl (65-105)
--- NOTE | 2025-04-30 09:45 | P.CONNS_ITS ---
Assessment and Plan Assessment and plan (1) Syncope: Qualifiers: Syncope type: unspecified Qualified Code(s): R55 - Syncope and collapse Code(s): R55 - Syncope and collapse Status: Acute Plan I do not think this meningioma that has been present for likely several years now has anything to do with his current symptoms. I do not recommend acute neurosurgical intervention for this chronic finding of meningioma. The meningioma can better be evaluated with an MRI of the brain with and without contrast. Considering this is been there for many years now is only grown slightly and can likely be monitored with serial MRI scans. Will sign off. Consult date: 04/30/25 Reason for consult: Meningioma HPI: Sukhdev Lowery III is a 69 year old male with a history of diabetes, chronic kidney disease on hemodialysis who presents with possible seizure. Patient fell lightheaded and fell. He does not recall the incident very well. He also has history of feeling lightheaded in the past related to his atrial fibrillation. He has been worked up from a medical perspective. As well as a neurology perspective. Is currently appears to be at his baseline. Was worked up with a CT scan that showed an incidental finding of meningioma that has also been observed on previous 2 CT scans of his brain. I was consulted for evaluation of the meningioma. [facility] Past Medical History Medical History PVD (peripheral vascular disease) Anemia End stage renal disease Urinary retention Overweight (BMI 25.0-29.9) Diarrhea HTN (hypertension) IBS (irritable bowel syndrome) Diabetes Surgical History Surgical History Status post below knee amputation of right lower extremity S/P dialysis catheter insertion S/P arteriovenous (AV) fistula creation Family History Family History Father Congestive heart failure Mother Cancer Social History Social History Smoking status: Never smoker Second hand tobacco smoke exposure: Yes Alcohol intake: former Drinks per week: 0 Substance use: never Substance use type: does not use Do You Feel Safe in your Home?: Yes Lack of Transportation: No Lack of Food: Never True Current Housing: I Have Housing Concerned About Future Housing: No Difficulty Paying Gas/Electric Bills: No Difficulty Paying for Meds: No Currently Unemployed: No Education: High School Diploma/GED Difficulty w/ Childcare or Family Care: No Living arrangements: with family Spiritual care concerns: No Meds Home Medications and Allergies Home Medications ?Medication ?Instructions ?Recorded ?Confirmed ?Type ferrous sulfate 324 mg (65 mg 324 mg PO DAILY 12/16/23 04/27/25 History iron) tablet,delayed release tamsulosin 0.4 mg capsule 0.4 mg PO DAILY 12/16/23 04/27/25 History amlodipine 5 mg tablet 5 mg PO DAILY 02/10/24 04/27/25 History ergocalciferol (vitamin D2) 1,250 1,250 mcg PO WEEKLY 02/10/24 04/27/25 History mcg (50,000 unit) capsule aspirin 325 mg tablet,delayed 325 mg PO QAM 30 days #30 tabs 03/05/25 04/27/25 Rx release metoprolol tartrate 25 mg tablet 25 mg PO DAILY 04/27/25 04/27/25 History Allergies Allergy/AdvReac Type Severity Reaction Status Date / Time No Known Allergies Allergy Verified 04/27/25 10:42 Vital Signs Vital Signs - 24 hr 04/29/25 12:02 04/29/25 14:00 04/29/25 16:02 Temperature 98.2 F Pulse Rate 67 64 68 Respiratory Rate 20 Blood Pressure 138/64 Pulse Oximetry 98 Oxygen Delivery 04/29/25 20:00 04/29/25 20:00 04/29/25 21:25 Temperature 98.3 F Pulse Rate 77 73 Respiratory Rate 16 Blood Pressure 157/69 H Pulse Oximetry 98 Oxygen Delivery Room Air 04/29/25 22:01 04/30/25 00:00 04/30/25 04:00 Temperature Pulse Rate 78 74 73 Respiratory Rate Blood Pressure Pulse Oximetry Oxygen Delivery 04/30/25 05:52 Temperature 98.4 F Pulse Rate 74 Respiratory Rate 16 Blood Pressure 140/60 Pulse Oximetry 94 Oxygen Delivery Exam 2 Narrative: The patient is awake alert in no acute distress He is oriented to person place and time His pupils appear equal round reactive to light his extraocular movements appear intact his face appears symmetric his tongue appears midline He moves all his extremities spontaneously without any focal neurologic deficit. He has no pronator drift. I reviewed his CT scan which shows a parafalcine meningioma on the left side that is roughly 2 cm in size. Results Labs 04/30/25 04:40 04/30/25 04:40 Labs: Short CBC 04/30/25 Range/Units 04:40 WBC 11.3 H (4.5-10.0) K/mm3 Hgb 9.2 L (14.0-18.0) g/dL Hct 27.2 L (42.0-52.0) % Plt Count 101 L (150-375) k/mm3 BMP 04/30/25 04:40 Sodium 135 L Potassium 3.8 Chloride 102 Carbon Dioxide 22 BUN 60 H D Creatinine 5.52 H Glucose 133 H Calcium 8.1 L Liver Function 04/30/25 Range/Units 04:40 Total Bilirubin 0.2 (0.2-1.3) mg/dL AST 21 (17-59) U/L ALT 13 (6-50) U/L Alkaline Phosphatase 64 (38-126) U/L Albumin 3.6 (3.5-5.1) g/dL
[2025-04-30] MEDS: TAMSULOSIN HCL 0.4 MG CAPSULE PO (09:48)
[2025-04-30] MEDS: FLECAINIDE ACETATE 50 MG TABLET PO ×2 (09:49→20:50)
[2025-04-30] MEDS: APIXABAN 2.5 MG TABLET PO ×2 (09:50→20:50)
[2025-04-30] MEDS: amLODIPine BESYLATE 5 MG TABLET PO (09:50)
[2025-04-30] MEDS: METOPROLOL SUCCINATE EXT REL 25 MG TABCR PO (09:50)
--- NOTE | 2025-04-30 11:20 | P.PNNP_ITS ---
Progress Note: A&P Assessment and Plan (1) End stage renal disease: Code(s): N18.6 - End stage renal disease Status: Chronic Assessment and Plan: * HD tomorrow * normally does home hemodialysis 4x/week * electrolytes, volume status, and clearance acceptable (2) Syncope: Qualifiers: Syncope type: unspecified Qualified Code(s): R55 - Syncope and collapse Code(s): R55 - Syncope and collapse Status: Acute Assessment and Plan: * presumably from UTI and hypotension * follow telemetry * CT of Brain noted * Neurology & Neurosurgery recommendations noted * Cardiology recommendations noted as well * Echo results reviewed (3) Atrial fibrillation with RVR: Code(s): I48.91 - Unspecified atrial fibrillation Status: Acute Assessment and Plan: * back in normal sinus rhythm * continue rate control strategy * anticoagulation(?) * Echo results noted * Cardiology following (4) Acute UTI: Code(s): N39.0 - Urinary tract infection, site not specified Status: Acute Assessment and Plan: * admission UA highly suggestive * follow urine culture results - no growth to date * on antibiotics (5) Anemia: Code(s): D64.9 - Anemia, unspecified Status: Acute Assessment and Plan: * due to ESRD * getting ALEX with HD * follow trend of H/H (6) HTN (hypertension): Code(s): I10 - Essential (primary) hypertension Status: Chronic Assessment and Plan: * reasonable control at this time * use of metoprolol likely assisting with better control * initially hypotensive on admission * s/p IVF boluses * follow trend of hemodynamics (7) Diabetes: Code(s): E11.9 - Type 2 diabetes mellitus without complications Status: Acute Assessment and Plan: * follow accu-checks * appears diet control as an outpatinet * glycemic control per hospitalist Will continue to follow. L Subjective Date/time seen: 04/30/25 11:20 Interval history: Follow-up for end stage renal disease on hemodialysis (home HD). Continues to do well in general without any acute issues or complaints; no further episodes of syncope noted following hospital admission; seen by Neurology and Neurosurgery regarding menigioma seen of CT of head; no apparent distress noted at the time of my visit. Exam 2 Narrative: General: elderly but WD/WN male in NAD Heart: normal S1 and S2; no rub Lungs: coarse at baseses Abdomen: soft, nontender, nondistended, positive bowel sounds Extremities: no cyanosis or clubbing; no edema Skin: warm and intact Objective Data Vital Signs Vital Signs: Vital Signs Temp Pulse Resp BP Pulse Ox O2 Del Method 04/30/25 09:50 78 04/30/25 09:49 78 04/30/25 05:52 98.4 F 74 16 140/60 94 04/30/25 04:00 73 04/30/25 00:00 74 04/29/25 22:01 78 04/29/25 21:25 98.3 F 73 16 157/69 H 98 04/29/25 20:00 Room Air 04/29/25 20:00 77 04/29/25 16:02 68 04/29/25 14:00 98.2 F 64 20 138/64 98 Intake/Output Intake/Output: Intake & Output 04/27/25 04/28/25 04/29/25 04/30/25 23:59 23:59 23:59 23:59 Intake Total 1581.3 2430 2850 680 Output Total 2300 Balance 1581.3 130 2850 680 Meds/Results Medications: Active Medications Generic Name Dose Route Start Last Admin Trade Name Freq PRN Reason Stop Dose Admin Acetaminophen 650 mg 04/27/25 14:32 Acetaminophen 325 Mg Tablet PO Q4H PRN Mild Pain (1-3) or Fever Amlodipine Besylate 5 mg 04/28/25 17:00 04/30/25 09:50 Amlodipine Besylate 5 Mg Tablet PO 5 mg DAILY SUPA Administration Apixaban 2.5 mg 04/27/25 21:00 04/30/25 09:50 Apixaban 2.5 Mg Tablet PO 2.5 mg Q12HR SUPA Administration Dextrose 12.5 gm 04/27/25 14:32 Dextrose 50% 25 Gm/50 Ml Syringe IV PUSH PRN PRN Hypoglycemia Protocol Ergocalciferol 1,250 mcg 04/29/25 09:00 04/29/25 08:52 Ergocalciferol (Vitamin D2) 1,250 Mcg (50,000 Units) Capsule PO 1,250 mcg Sa@0900 SUPA Administration Flecainide Acetate 50 mg 04/27/25 21:00 04/30/25 09:49 Flecainide Acetate 50 Mg Tablet PO 50 mg Q12HR SUPA Administration Glucagon 1 mg 04/27/25 14:32 Glucagon For Inj 1 Mg Vial IM PRN PRN Hypoglycemia Protocol Glucose 15 gm 04/27/25 14:32 Glucose Oral Gel 15 Gm Of Glucse In 37.5 Gm Tube PO PRN PRN Hypoglycemia Protocol Dextrose 1,000 mls @ 100 mls/hr 04/27/25 14:32 Dextrose 5% 1,000 Ml IVPB PRN PRN Hypoglycemia Protocol Ceftriaxone Sodium 1 gm in 50 mls @ 100 mls/hr 04/27/25 15:00 04/29/25 14:45 Rocephin 1 Gm/Ns 50 Ml IVPB Infused Q24H SUPA Infusion Albumin Human 50 mls @ 999 mls/hr 04/28/25 06:11 Albutein IVPB 05/28/25 06:10 Q10M PRN HYPOTENSION Insulin Aspart 3 - 6 units 04/27/25 17:00 04/30/25 09:45 Insulin Aspart (*Bkc) 100 Units/Ml SUB-Q Not Given TIDWM SUPA Protocol Insulin Aspart 1 - 3 units 04/27/25 21:00 04/29/25 22:00 Insulin Aspart (*Bkc) 100 Units/Ml SUB-Q Not Given HS SUPA Protocol Metoprolol Succinate 25 mg 04/28/25 09:00 04/30/25 09:50 Metoprolol Succinate Ext Rel 25 Mg Tabcr PO 25 mg QAM SUPA Administration Perflutren Lipid Microsphere 0 ml 04/27/25 14:35 Perflutren Lipid Microspheres 1.5 Ml Vial Diluted To 10 Ml Total Volume IV PUSH 04/30/25 14:36 ONCE PRN adequate visualization Protocol Tamsulosin HCl 0.4 mg 04/28/25 09:00 04/30/25 09:48 Tamsulosin Hcl 0.4 Mg Capsule PO 0.4 mg DAILY SUPA Administration Radiology Results: ITS Impressions Chest X-Ray 04/27/25 11:24 IMPRESSION: 1: NO ACUTE CARDIOPULMONARY DISEASE. Carotid Doppler Study 04/28/25 15:08 IMPRESSION: 1. <50% stenosis in the right internal carotid artery. 2. <50% stenosis in the left internal carotid artery. Head CT 04/28/25 15:10 IMPRESSION: 1. 2.1 cm left parafalcine meningioma. No acute intracranial process. Labs Labs: Laboratory Tests 04/30/25 04:40 04/30/25 04:40 Calcium 8.1 L Phosphorus 5.0 H Total Bilirubin 0.2 AST 21 ALT 13 Alkaline Phosphatase 64 Total Protein 6.3 Albumin 3.6
--- NOTE | 2025-04-30 15:02 | P.PNIM_ITS ---
Progress Note: A&P Assessment and Plan (1) Syncope: Qualifiers: Syncope type: unspecified Qualified Code(s): R55 - Syncope and collapse Code(s): R55 - Syncope and collapse Status: Acute Assessment and Plan: Likely from meningioma, UTI, mild to moderate aortic valve stenosis, and hypotension Syncopal workup Head CT:2.1 cm left parafalcine meningioma. No acute intracranial process. Carotid Doppler:1. <50% stenosis in the right internal carotid artery. 2. <50% stenosis in the left internal carotid artery. Telemetry monitoring Orthostatic vital signs Echocardiogram with bubble study shows Left ventricular systolic function is normal, estimated at 65-70. left ventricular diastolic function is abnormal.mild to moderate aortic valve stenosis with a peak velocity of 240 cm/s, mean gradient of 11 mmHg, and aortic valve area of 1.2 cm2. Pending MRI. Neurosurgery evaluated the patient and reported no acute surgical intervention but serial MRI follow up 30 day media monitor upon discharge Following Neurology and Neurosurgery recommendation (2) Atrial fibrillation with RVR: Code(s): I48.91 - Unspecified atrial fibrillation Status: Acute Assessment and Plan: Back in sinus rhythm. [id number] 3. Discuss anticoagulation but given ESRD cannot go with DOAC, and given significant anemia, concern for bleeding and worsening anemia. Discuss referral for Watchman device, but he is not interested at this time. Cardiology started Flecainide 50 mg BID to restore sinus rhythm. Change Metoprolol Succinate 25 mg daily. Start Eliquis 2.5 mg BID for anticoagulation. (3) Acute UTI: Code(s): N39.0 - Urinary tract infection, site not specified Status: Acute Assessment and Plan: UA with leukocyte esterase and yeast Culture and sensitivity pending IV Rocephin (4) Diabetes: Code(s): E11.9 - Type 2 diabetes mellitus without complications Status: Acute Assessment and Plan: Hemoglobin A1c 5.9 on 03/04/2025 Diabetic diet Accu-Cheks a.c. HS SSI (5) ESRD on hemodialysis: Code(s): N18.6 - End stage renal disease; Z99.2 - Dependence on renal dialysis Status: Acute Assessment and Plan: Nephrology consulted Patient does dialysis normally on Thursday He states that this week because he had appointment on Thursday he did dialysis on Thursday and Thursday (6) Hypotension: Code(s): I95.9 - Hypotension, unspecified Status: Acute Assessment and Plan: Appears to be euvolemic Improved with a total of 1 L fluid bolus Monitor for fluid overload Subjective Date/time seen: 04/30/25 15:02 Interval history: Pending MRI. Neurosurgery evaluated the patient and reported no acute surgical intervention but serial MRI follow up. Patient needs a 30 day event monitor during discharge Review of Systems Review of Systems: 12 systems were reviewed and are negativ e except for as per HPI. Exam Narrative: General: well appearing, appears stated age. HEENT: normocephalic, atraumatic. Mucous membranes moist. EOMI, PERRLA, bilateral sclera anicteric, no conjunctival injection. Neck supple without JVD, lymphadenopathy, or bruit. Respiratory: clear to ascultation bilaterally. No rales/rhonic/wheezes. Cardiovascular: Regular rate and rhythm, normal S1-S2 upon ascultation. No murmurs, rubs, or clicks. PMI is nondisplaced, capillary refill less than 3 second. Abdomen: Soft, round, no pulsatile masses, nondistended and nontender. No rebound, no guarding. No CVA tenderness, no hepatosplenomegaly. Bowel sounds present to all four quadrants. No high pitch or tinkling sounds, resonant to percussion. Extremities: No cyanosis, clubbing, or edema present. Pulses are palpable 2/2. Right lower extremity BKA Neuro: Alert and orientated x 4. PERRLA. Cranial nerves 2-12 intact without focal deficit. Skin: Warm, dry, and intact, without rash, erythema, or lesion. Psych: pleasant, cooperative, normal speech, normal affect, no hallucinations, no dysarthia Objective Data Vital Signs Vital Signs: Vital Signs - 24 hr 04/29/25 16:02 04/29/25 20:00 04/29/25 20:00 Temperature Pulse Rate 68 77 Respiratory Rate Blood Pressure Pulse Oximetry Oxygen Delivery Room Air 04/29/25 21:25 04/29/25 22:01 04/30/25 00:00 Temperature 98.3 F Pulse Rate 73 78 74 Respiratory Rate 16 Blood Pressure 157/69 H Pulse Oximetry 98 Oxygen Delivery 04/30/25 04:00 04/30/25 05:52 04/30/25 09:49 Temperature 98.4 F Pulse Rate 73 74 78 Respiratory Rate 16 Blood Pressure 140/60 Pulse Oximetry 94 Oxygen Delivery 04/30/25 09:50 Temperature Pulse Rate 78 Respiratory Rate Blood Pressure Pulse Oximetry Oxygen Delivery Intake/Output Intake/Output: Intake & Output 04/27/25 04/28/25 04/29/25 04/30/25 23:59 23:59 23:59 23:59 Intake Total 1581.3 2430 2850 1160 Output Total 2300 Balance 1581.3 130 2850 1160 Meds/Results Medications: Active Medications Generic Name Dose Route Start Last Admin Trade Name Freq PRN Reason Stop Dose Admin Acetaminophen 650 mg 04/27/25 14:32 Acetaminophen 325 Mg Tablet PO Q4H PRN Mild Pain (1-3) or Fever Amlodipine Besylate 5 mg 04/28/25 17:00 04/30/25 09:50 Amlodipine Besylate 5 Mg Tablet PO 5 mg DAILY SUPA Administration Apixaban 2.5 mg 04/27/25 21:00 04/30/25 09:50 Apixaban 2.5 Mg Tablet PO 2.5 mg Q12HR SUPA Administration Dextrose 12.5 gm 04/27/25 14:32 Dextrose 50% 25 Gm/50 Ml Syringe IV PUSH PRN PRN Hypoglycemia Protocol Ergocalciferol 1,250 mcg 04/29/25 09:00 04/29/25 08:52 Ergocalciferol (Vitamin D2) 1,250 Mcg (50,000 Units) Capsule PO 1,250 mcg Sa@0900 SUPA Administration Flecainide Acetate 50 mg 04/27/25 21:00 04/30/25 09:49 Flecainide Acetate 50 Mg Tablet PO 50 mg Q12HR SUPA Administration Glucagon 1 mg 04/27/25 14:32 Glucagon For Inj 1 Mg Vial IM PRN PRN Hypoglycemia Protocol Glucose 15 gm 04/27/25 14:32 Glucose Oral Gel 15 Gm Of Glucse In 37.5 Gm Tube PO PRN PRN Hypoglycemia Protocol Dextrose 1,000 mls @ 100 mls/hr 04/27/25 14:32 Dextrose 5% 1,000 Ml IVPB PRN PRN Hypoglycemia Protocol Ceftriaxone Sodium 1 gm in 50 mls @ 100 mls/hr 04/27/25 15:00 04/29/25 14:45 Rocephin 1 Gm/Ns 50 Ml IVPB Infused Q24H SUPA Infusion Albumin Human 50 mls @ 999 mls/hr 04/28/25 06:11 Albutein IVPB 05/28/25 06:10 Q10M PRN HYPOTENSION Insulin Aspart 3 - 6 units 04/27/25 17:00 04/30/25 13:04 Insulin Aspart (*Bkc) 100 Units/Ml SUB-Q Not Given TIDWM [facility] Protocol Insulin Aspart 1 - 3 units 04/27/25 21:00 04/29/25 22:00 Insulin Aspart (*Bkc) 100 Units/Ml SUB-Q Not Given HS [facility] Protocol Metoprolol Succinate 25 mg 04/28/25 09:00 04/30/25 09:50 Metoprolol Succinate Ext Rel 25 Mg Tabcr PO 25 mg QAM SUPA Administration Tamsulosin HCl 0.4 mg 04/28/25 09:00 04/30/25 09:48 Tamsulosin Hcl 0.4 Mg Capsule PO 0.4 mg DAILY SUPA Administration Radiology Results: ITS Impressions Chest X-Ray 04/27/25 11:24 IMPRESSION: 1: NO ACUTE CARDIOPULMONARY DISEASE. Carotid Doppler Study 04/28/25 15:08 IMPRESSION: 1. <50% stenosis in the right internal carotid artery. 2. <50% stenosis in the left internal carotid artery. Head CT 04/28/25 15:10 IMPRESSION: 1. 2.1 cm left parafalcine meningioma. No acute intracranial process. Labs Labs: Laboratory Results - last 24 hr 04/29/25 04/29/25 04/30/25 17:12 21:28 04:40 WBC 11.3 H RBC 2.90 L Hgb 9.2 L Hct 27.2 L MCV 93.8 MCH 31.7 MCHC 33.8 RDW 13.5 Plt Count 101 L MPV 9.0 Sodium 135 L Potassium 3.8 Chloride 102 Carbon Dioxide 22 Anion Gap 11 BUN 60 H D Creatinine 5.52 H Estim Creat Clear Calc 11 Estimated GFR 10 L Glucose 133 H POC Capillary Glucose 128 H 168 H Calcium 8.1 L Phosphorus 5.0 H Total Bilirubin 0.2 AST 21 ALT 13 Alkaline Phosphatase 64 Total Protein 6.3 Albumin 3.6 04/30/25 07:44 WBC RBC Hgb Hct MCV MCH MCHC RDW Plt Count MPV Sodium Potassium Chloride Carbon Dioxide Anion Gap BUN Creatinine Estim Creat Clear Calc Estimated GFR Glucose POC Capillary Glucose 156 H Calcium Phosphorus Total Bilirubin AST ALT Alkaline Phosphatase Total Protein Albumin Quality VTE Prophylaxis VTE prophylaxis: mechanical ordered Hospitalist MIPS Advance Care Plan I have confirmed that the patient's Advanced Care Plan is present, code status is documented, or surrogate decision maker is listed in patient medical record.: Yes Medication Reconciliation I have utilized all available resources to obtain, update and review the patients current medications (includes all prescriptions, OTC, herbals, cannabis, and nutritional supplements).: Yes
[2025-04-30 16:15] LABS: Toxigenic C. Diff NEGATIVE (NEGATIVE)
[2025-04-30 17:09] LABS: Glucose Point of Care 151 mg/dl (65-105)
[2025-04-30 20:54] LABS: Glucose Point of Care 186 mg/dl (65-105)
[2025-04-30] MEDS: FUROSEMIDE INJ 40 MG/4 ML VIAL IV PUSH (21:23)
[2025-04-30 21:36] LABS: Alveolar/Arterial O2 Gradient 62.8 mmHg; Base Excess ABG -4.7 mEq/l (+/-2.0); Fractional Inspired Oxygen 21 %; HCO3 ABG 19.8 mEq/l (22.0-26.0); Oxygen Content ABG 10.4 %vol (16.0-22.0); PCO2 ABG 33.7 mmHg (35.0-45.0); PO2 FiO2 Ratio Arterial Blood 2.22 %; pH ABG 7.386 (7.350-7.450)
[2025-04-30 21:40] LABS: Oxygen Saturation ABG 82.5 % (95.0-100.0); PO2 ABG 46.6 mmHg (80.0-100.0)
[2025-04-30 21:41] LABS: Device ROOM AIR; Modified Allen's Test Pass; Oxyhemoglobin 81.6 % THb (90.0-100.0); Site Drawn RIGHT RADIAL
[2025-04-30] MEDS: NITROGLYCERIN OINTMENT 1 INCH DOSE TRANSDERM (21:52)
--- NOTE | 2025-04-30 23:40 | P.PNCROSS_ITS ---
Event Note Event Note Event Note: I was called because patient was complaining of difficulty breathing that has w orsened throughout the day today. RN stated that patient was very wet sounding. I ordered ABG and CXR STAT. Reviewed chart and saw that patient is on home HD Thu///Thu. I saw on I&O that patient was nearly 4 liters fluid positive today and about 8 liters fluid positive throughout stay. 1 view portable CXR obtained and compared to CXR on 04/27. Per my independent interpretation, new findings of right sided pulmonary edema and pleural effusion noted along with the chronic granulomas that were previously present. Less pulmonary vascular congestion/pulmonary edema seen on left side. ABG resulted with significant hypoxemia. RT started patient on high flow nasal cannula at 8 liters per minute oxygen. I ordered IV Lasix 40 mg and 1 inch nitro paste x1. When I went to see patient he was sleeping comfortably. When awakened he stated that the oxygen and medications he got really helped his breathing. We began to wean oxygen down. I notified Dr. Langston about patient condition so he can guide fluid removal with HD in the morning. Also placed patient on a 2 liter fluid restriction for now. I updated patient that I anticipate he will have to get dialysis here on Thursday and Thursday before he can be discharged home but he would get reevaluated tomorrow to see how he is doing after dialysis.
[2025-05-01] VITALS (28 sets, daily range): BP systolic 131–173; BP diastolic 51–86; PULSE 73–89; RESP 16–20; TEMP 36.9–37.2; O2SAT 92–98
[2025-05-01 05:17] LABS: Hematocrit 25.6 % (42.0-52.0); Hemoglobin 8.5 g/dL (14.0-18.0); Mean Corpuscular HGB Conc 33.2 g/dl (32-36); Mean Corpuscular Hemoglobin 31.5 pg (26-34); Mean Corpuscular Volume 94.8 fl (80-100); Mean Platelet Volume 9.8 fl (7.4-10.4); Platelet Count Result 103 k/mm3 (150-375); Red Cell Distribution Width 13.6 % (11.5-14.5); White Blood Count 12.5 K/mm3 (4.5-10.0)
[2025-05-01 05:23] LABS: Alanine Aminotransferase 11 U/L (6-50); Albumin Level 3.6 g/dL (3.5-5.1); Alkaline Phosphatase 63 U/L (38-126); Anion Gap 14 mmol/L (4-12); Aspartate Amino Transferase 20 U/L (17-59); Bilirubin,Total 0.3 mg/dL (0.2-1.3); Blood Urea Nitrogen 73 mg/dL (9-20); Calcium 8.3 mg/dL (8.4-10.2); Carbon Dioxide 21 mmol/L (22-30); Chloride 102 mmol/L (98-107); Estimated CRCL calculation 9 ml/min; Estimated Glomerular Filt Rate 8; Glucose 149 mg/dL (65-110); Potassium 3.8 mmol/L (3.4-5.0); Sodium 137 mmol/L (137-145); Total Protein 6.4 g/dL (6.3-8.2)
--- NOTE | 2025-05-01 08:00 | PM.DS ---
DS: Admitting Diagnosis Discharge Date 0 05/01/2025 Admitting Diagnosis Syncope DS: Discharge Diagnosis Discharge Diagnosis (1) Syncope: Qualifiers: Syncope type: unspecified Qualified Code(s): R55 - Syncope and collapse Code(s): R55 - Syncope and collapse Status: Acute Assessment and Plan: Likely from meningioma, UTI, mild to moderate aortic valve stenosis, and hypotension Syncopal workup Head CT:2.1 cm left parafalcine meningioma. No acute intracranial process. Carotid Doppler:1. <50% stenosis in the right internal carotid artery. 2. <50% stenosis in the left internal carotid artery. Telemetry monitoring Orthostatic vital signs Echocardiogram with bubble study shows Left ventricular systolic function is normal, estimated at 65-70. left ventricular diastolic function is abnormal.mild to moderate aortic valve stenosis with a peak velocity of 240 cm/s, mean gradient of 11 mmHg, and aortic valve area of 1.2 cm2. Pending MRI. Neurosurgery evaluated the patient and reported no acute surgical intervention but serial MRI follow up 30 day residential monitor upon discharge Following Neurology and Neurosurgery recommendation (2) Atrial fibrillation with RVR: Code(s): I48.91 - Unspecified atrial fibrillation Status: Acute Assessment and Plan: Back in sinus rhythm. [id number] 3. Discuss anticoagulation but given ESRD cannot go with DOAC, and given significant anemia, concern for bleeding and worsening anemia. Discuss referral for Watchman device, but he is not interested at this time. Cardiology started Flecainide 50 mg BID to restore sinus rhythm. Change Metoprolol Succinate 25 mg daily. Start Eliquis 2.5 mg BID for anticoagulation. (3) Acute UTI: Code(s): N39.0 - Urinary tract infection, site not specified Status: Acute Assessment and Plan: UA with leukocyte esterase and yeast Culture and sensitivity pending IV Rocephin (4) Diabetes: Code(s): E11.9 - Type 2 diabetes mellitus without complications Status: Acute Assessment and Plan: Hemoglobin A1c 5.9 on 03/04/2025 Diabetic diet Accu-Cheks a.c. HS SSI (5) ESRD on hemodialysis: Code(s): N18.6 - End stage renal disease; Z99.2 - Dependence on renal dialysis Status: Acute Assessment and Plan: Nephrology consulted Patient does dialysis normally on Thursday He states that this week because he had appointment on Thursday he did dialysis on Thursday and Thursday (6) Hypotension: Code(s): I95.9 - Hypotension, unspecified Status: Acute Assessment and Plan: Appears to be euvolemic Improved with a total of 1 L fluid bolus Monitor for fluid overload DS: Summary Time Spent with Patient Time attestation: Total time spent providing and/or coordinating discharge services: Exam Narrative: General: well appearing, appears stated age. HEENT: normocephalic, atraumatic. Mucous membranes moist. EOMI, PERRLA, bilateral sclera anicteric, no conjunctival injection. Neck supple without JVD, lymphadenopathy, or bruit. Respiratory: clear to ascultation bilaterally. No rales/rhonic/wheezes. Cardiovascular: Regular rate and rhythm, normal S1-S2 upon ascultation. No murmurs, rubs, or clicks. PMI is nondisplaced, capillary refill less than 3 second. Abdomen: Soft, round, no pulsatile masses, nondistended and nontender. No rebound, no guarding. No CVA tenderness, no hepatosplenomegaly. Bowel sounds present to all four quadrants. No high pitch or tinkling sounds, resonant to percussion. Extremities: No cyanosis, clubbing, or edema present. Pulses are palpable 2/2. Right lower extremity BKA Neuro: Alert and orientated x 4. PERRLA. Cranial nerves 2-12 intact without focal deficit. Skin: Warm, dry, and intact, without rash, erythema, or lesion. Psych: pleasant, cooperative, normal speech, normal affect, no hallucinations, no dysarthia DS: Data Data Completed and Pending Labs on day of discharge: Labs from last 24 hours 05/01/25 04/30/25 04/30/25 04:30 21:27 20:31 WBC 12.5 H RBC 2.70 L Hgb 8.5 L Hct 25.6 L MCV 94.8 MCH 31.5 MCHC 33.2 RDW 13.6 Plt Count 103 L MPV 9.8 Puncture Site Right radial ABG pH 7.386 ABG pCO2 33.7 L ABG pO2 46.6 L* ABG PO2/FiO2 Ratio 2.22 ABG HCO3 19.8 L ABG O2 Saturation 82.5 L* ABG O2 Content 10.4 L ABG Base Excess -4.7 A-a Gradient 62.8 Oxyhemoglobin 81.6 L* Total Hemoglobin 9.0 L O2 Delivery Device Room air O2 Liters/Min Not Reportable FiO2 21 Sodium 137 Potassium 3.8 Chloride 102 Carbon Dioxide 21 L Anion Gap 14 H BUN 73 H D Creatinine 7.24 H Estim Creat Clear Calc 9 Estimated GFR 8 L Glucose 149 H POC Capillary Glucose 186 H Calcium 8.3 L Total Bilirubin 0.3 AST 20 ALT 11 Alkaline Phosphatase 63 Total Protein 6.4 Albumin 3.6 C. difficile (PCR) 04/30/25 04/30/25 04/30/25 17:03 15:22 07:44 WBC RBC Hgb Hct MCV MCH MCHC RDW Plt Count MPV Puncture Site ABG pH ABG pCO2 ABG pO2 ABG PO2/FiO2 Ratio ABG HCO3 ABG O2 Saturation ABG O2 Content ABG Base Excess A-a Gradient Oxyhemoglobin Total Hemoglobin O2 Delivery Device O2 Liters/Min FiO2 Sodium Potassium Chloride Carbon Dioxide Anion Gap BUN Creatinine Estim Creat Clear Calc Estimated GFR Glucose POC Capillary Glucose 151 H 156 H Calcium Total Bilirubin AST ALT Alkaline Phosphatase Total Protein Albumin C. difficile (PCR) Negative Preliminary micro results at discharge 04/27/25 18:50 Blood Culture - Preliminary Blood 04/27/25 18:50 Blood Culture - Preliminary Blood Discharge Plan Discharge Consulting providers: Alexis Langston; Nilson Jerez; Jj Cotter; Abelino Duque Patient Instructions: Apixaban (By mouth) Patient Language: Serbian Discharge Medications: No Action tamsulosin 0.4 mg Capsule 0.4 mg PO DAILY ferrous sulfate 324 mg (65 mg iron) Tablet,Delayed Release (Dr/Ec) 324 mg PO DAILY amlodipine 5 mg tablet 5 mg PO DAILY ergocalciferol (vitamin D2) 1,250 mcg (50,000 unit) capsule 1,250 mcg PO WEEKLY Patient Comments: Thursday Rx Instructions: Pt takes on Saturdays. aspirin 325 mg Tablet,Delayed Release (Dr/Ec) 325 mg PO QAM 30 Days Qty: 30 1RF metoprolol tartrate 25 mg Tablet 25 mg PO DAILY Date of admission: 04/28/25 08:16 Primary Care Provider: Adryan Galarza Admitting Provider: Harper Esposito Attending physician on admission: Harper Esposito Condition: Serious
[2025-05-01 08:29] LABS: Glucose Point of Care 143 mg/dl (65-105)
[2025-05-01] MEDS: HEPARIN SODIUM 1,000 UNITS/ML VIAL 2000 UNITS (08:45)
--- NOTE | 2025-05-01 10:35 | P.PNNP_ITS ---
Progress Note: A&P Assessment and Plan (1) End stage renal disease: Code(s): N18.6 - End stage renal disease Status: Chronic Assessment and Plan: * HD today * normally does home hemodialysis 4x/week * electrolytes, volume status, and clearance acceptable (2) Syncope: Qualifiers: Syncope type: unspecified Qualified Code(s): R55 - Syncope and collapse Code(s): R55 - Syncope and collapse Status: Acute Assessment and Plan: * presumably from UTI and hypotension * follow telemetry * CT of Brain noted * Neurology & Neurosurgery recommendations noted * Cardiology recommendations noted as well * Echo results reviewed (3) Atrial fibrillation with RVR: Code(s): I48.91 - Unspecified atrial fibrillation Status: Acute Assessment and Plan: * back in normal sinus rhythm * continue rate control strategy * anticoagulation(?) * Echo results noted * Cardiology following (4) Acute UTI: Code(s): N39.0 - Urinary tract infection, site not specified Status: Acute Assessment and Plan: * admission UA highly suggestive * follow urine culture results - no growth to date * on antibiotics (5) Anemia: Code(s): D64.9 - Anemia, unspecified Status: Acute Assessment and Plan: * due to ESRD * getting ALEX with HD * follow trend of H/H (6) HTN (hypertension): Code(s): I10 - Essential (primary) hypertension Status: Chronic Assessment and Plan: * reasonable control at this time * use of metoprolol likely assisting with better control * initially hypotensive on admission * s/p IVF boluses * follow trend of hemodynamics (7) Diabetes: Code(s): E11.9 - Type 2 diabetes mellitus without complications Status: Acute Assessment and Plan: * follow accu-checks * appears diet control as an outpatinet * glycemic control per hospitalist Will continue to follow. L Subjective Date/time seen: 05/01/25 10:35 Interval history: Follow-up for end stage renal disease on hemodialysis (home HD). Tolerating dialysis treatment at the time of my visit (seen on HD at 10:25am); no new issues or problems to report; no events overnight or earlier this morning; no apparent distress voiced. Exam 2 Narrative: General: elderly but WD/WN male in NAD Heart: normal S1 and S2; no rub Lungs: coarse at baseses Abdomen: soft, nontender, nondistended, positive bowel sounds Extremities: no cyanosis or clubbing; no edema Skin: no rash Objective Data Vital Signs Vital Signs: Vital Signs Temp Pulse Resp BP Pulse Ox O2 Del Method O2 Flow Rate 05/01/25 10:30 81 158/64 H 05/01/25 10:15 80 173/86 H 05/01/25 10:00 78 166/78 H 05/01/25 09:45 79 158/77 H 05/01/25 09:30 79 157/75 H 05/01/25 09:15 78 157/80 H 05/01/25 09:01 76 151/73 H 05/01/25 08:55 77 153/77 H 05/01/25 08:45 98.6 F 76 18 163/81 H 05/01/25 08:00 Room Air 05/01/25 04:34 98.9 F 77 18 133/51 L 98 05/01/25 04:00 76 05/01/25 00:00 97 High Flow Nasal Cannula 2 05/01/25 00:00 97 Nasal Cannula 2 05/01/25 00:00 82 05/01/25 00:00 98.5 F 79 18 131/55 L 97 04/30/25 23:34 100 Nasal Cannula 4 04/30/25 21:50 82 22 H 93 High Flow Nasal Cannula 8 04/30/25 21:00 Room Air 04/30/25 20:50 82 04/30/25 20:29 98.8 F 82 16 138/81 92 04/30/25 20:00 80 Intake/Output Intake/Output: Intake & Output 04/28/25 04/29/25 04/30/25 05/01/25 23:59 23:59 23:59 23:59 Intake Total 2430 2850 3890 910 Output Total 2300 2800 Balance 130 2850 3890 -1890 Meds/Results Medications: Active Medications Generic Name Dose Route Start Last Admin Trade Name Freq PRN Reason Stop Dose Admin Acetaminophen 650 mg 04/27/25 14:32 Acetaminophen 325 Mg Tablet PO Q4H PRN Mild Pain (1-3) or Fever Albuterol/Ipratropium 3 ml 05/01/25 20:00 Ipratropium 0.5 Mg/Albuterol Sulfate 2.5 Mg Ampul.Neb 3 Ml INHALATION Q6HRT SUPA Amlodipine Besylate 5 mg 04/28/25 17:00 05/01/25 13:12 Amlodipine Besylate 5 Mg Tablet PO 5 mg DAILY SUPA Administration Amoxicillin/Clavulanate Potassium 1 tablet 05/01/25 15:00 05/01/25 17:00 Amoxicillin/Clavulanate K 500-125 Mg Tab PO 05/03/25 21:01 1 tablet Q12HR SUPA Administration Apixaban 2.5 mg 04/27/25 21:00 05/01/25 13:12 Apixaban 2.5 Mg Tablet PO 2.5 mg Q12HR SUPA Administration Dextrose 12.5 gm 04/27/25 14:32 Dextrose 50% 25 Gm/50 Ml Syringe IV PUSH PRN PRN Hypoglycemia Protocol Doxycycline Hyclate 100 mg 05/01/25 21:00 Doxycycline Hyclate 100 Mg Tablet PO 05/08/25 20:59 Q12HR SUPA Ergocalciferol 1,250 mcg 04/29/25 09:00 04/29/25 08:52 Ergocalciferol (Vitamin D2) 1,250 Mcg (50,000 Units) Capsule PO 1,250 mcg Sa@0900 SUPA Administration Flecainide Acetate 50 mg 04/27/25 21:00 05/01/25 13:12 Flecainide Acetate 50 Mg Tablet PO 50 mg Q12HR SUPA Administration Glucagon 1 mg 04/27/25 14:32 Glucagon For Inj 1 Mg Vial IM PRN PRN Hypoglycemia Protocol Glucose 15 gm 04/27/25 14:32 Glucose Oral Gel 15 Gm Of Glucse In 37.5 Gm Tube PO PRN PRN Hypoglycemia Protocol Guaifenesin 600 mg 05/01/25 21:00 Guaifenesin 12 Hr 600 Mg Tabcr PO Q12HR SUPA Dextrose 1,000 mls @ 100 mls/hr 04/27/25 14:32 Dextrose 5% 1,000 Ml IVPB PRN PRN Hypoglycemia Protocol Albumin Human 50 mls @ 999 mls/hr 04/28/25 06:11 Albutein IVPB 05/28/25 06:10 Q10M PRN HYPOTENSION Insulin Aspart 3 - 6 units 04/27/25 17:00 05/01/25 17:56 Insulin Aspart (*Bkc) 100 Units/Ml SUB-Q Not Given TIDWM [facility] Protocol Insulin Aspart 1 - 3 units 04/27/25 21:00 04/30/25 20:49 Insulin Aspart (*Bkc) 100 Units/Ml SUB-Q Not Given HS [facility] Protocol Metoprolol Succinate 25 mg 04/28/25 09:00 05/01/25 13:11 Metoprolol Succinate Ext Rel 25 Mg Tabcr PO 25 mg QAM SUPA Administration Tamsulosin HCl 0.4 mg 04/28/25 09:00 05/01/25 13:12 Tamsulosin Hcl 0.4 Mg Capsule PO 0.4 mg DAILY SUPA Administration Radiology Results: ITS Impressions Carotid Doppler Study 04/28/25 15:08 IMPRESSION: 1. <50% stenosis in the right internal carotid artery. 2. <50% stenosis in the left internal carotid artery. Head CT 04/28/25 15:10 IMPRESSION: 1. 2.1 cm left parafalcine meningioma. No acute intracranial process. Brain MRI 05/01/25 08:13 IMPRESSION: 1. Calcified meningioma in the left parafalcine area. 2. Mild brain atrophy. 3. Mild FLAIR hyperintense signal in the right eye. Clinical evaluation advised. 4. Frontal, ethmoid and sphenoid sinus disease. 5. No abnormal enhancement. Chest X-Ray 05/01/25 14:33 IMPRESSION: Pneumonia in the right mid and lower lung zones. Labs Labs: Laboratory Tests 05/01/25 04:30 05/01/25 04:30 Calcium 8.3 L Total Bilirubin 0.3 AST 20 ALT 11 Alkaline Phosphatase 63 Total Protein 6.4 Albumin 3.6
[2025-05-01] MEDS: EPOETIN ALFA-EPBX 10,000 UNITS/ML VIAL 10000 UNITS IV PUSH (11:40)
[2025-05-01] MEDS: METOPROLOL SUCCINATE EXT REL 25 MG TABCR PO (13:11)
[2025-05-01] MEDS: APIXABAN 2.5 MG TABLET PO ×2 (13:12→20:33)
[2025-05-01] MEDS: FLECAINIDE ACETATE 50 MG TABLET PO ×2 (13:12→20:33)
[2025-05-01] MEDS: TAMSULOSIN HCL 0.4 MG CAPSULE PO (13:12)
[2025-05-01] MEDS: amLODIPine BESYLATE 5 MG TABLET PO (13:12)
[2025-05-01 13:22] LABS: Glucose Point of Care 99 mg/dl (65-105)
--- NOTE | 2025-05-01 15:22 | PM.IMPN ---
Progress Note: A&P Assessment and Plan (1) Syncope: Qualifiers: Syncope type: unspecified Qualified Code(s): R55 - Syncope and collapse Code(s): R55 - Syncope and collapse Status: Acute Assessment and Plan: Likely from meningioma, UTI, mild to moderate aortic valve stenosis, and hypotension Syncopal workup Head CT:2.1 cm left parafalcine meningioma. No acute intracranial process. Carotid Doppler:1. <50% stenosis in the right internal carotid artery. 2. <50% stenosis in the left internal carotid artery. Telemetry monitoring Orthostatic vital signs Echocardiogram with bubble study shows Left ventricular systolic function is normal, estimated at 65-70. left ventricular diastolic function is abnormal.mild to moderate aortic valve stenosis with a peak velocity of 240 cm/s, mean gradient of 11 mmHg, and aortic valve area of 1.2 cm2. MRI brain reveals calcified meningioma in the left para falcine 3 area. Frontal ethmoid and sphenoid sinus disease. Mild brain atrophy. Neurosurgery evaluated the patient and reported no acute surgical intervention but serial MRI follow up 30 day cardiac rehabilitation program director upon discharge Following Neurology and Neurosurgery recommendation (2) Atrial fibrillation with RVR: Code(s): I48.91 - Unspecified atrial fibrillation Status: Acute Assessment and Plan: Back in sinus rhythm. [id number] 3. Discuss anticoagulation but given ESRD cannot go with DOAC, and given significant anemia, concern for bleeding and worsening anemia. Discuss referral for Watchman device, but he is not interested at this time. Cardiology started Flecainide 50 mg BID to restore sinus rhythm. Change Metoprolol Succinate 25 mg daily. Start Eliquis 2.5 mg BID for anticoagulation. (3) Acute UTI: Code(s): N39.0 - Urinary tract infection, site not specified Status: Acute Assessment and Plan: UA with leukocyte esterase and yeast Culture and sensitivity no growth IV Rocephin Change to oral antibiotics (4) Diabetes: Code(s): E11.9 - Type 2 diabetes mellitus without complications Status: Acute Assessment and Plan: Hemoglobin A1c 5.9 on 03/04/2025 Diabetic diet Accu-Cheks a.c. HS SSI (5) ESRD on hemodialysis: Code(s): N18.6 - End stage renal disease; Z99.2 - Dependence on renal dialysis Status: Acute Assessment and Plan: Nephrology consulted Patient does dialysis normally on Thursday He states that this week because he had appointment on Thursday he did dialysis on Thursday and Thursday (6) Hypotension: Code(s): I95.9 - Hypotension, unspecified Status: Acute Assessment and Plan: Appears to be euvolemic Improved with a total of 1 L fluid bolus Monitor for fluid overload Plan Hypoxia/respiratory distress chest x-ray with pulmonary edema. Received a dose of Lasix. Improved with it. Got dialyzed today. Repeat chest x-ray with right pneumonia. Will add doxycycline and Augmentin. Will continue to monitor. Will check procalcitonin. Add DuoNeb. Subjective Date/time seen: 05/01/25 15:22 Interval history: Overnight events noted. Was hypoxic requiring 8 L now down to room air. Seen during dialysis. Review of Systems Review of Systems: All systems reviewed & are unremarkable except as noted in HPI and below Exam Narrative: General: well appearing, appears stated age. Not in acute distress HEENT: normocephalic, atraumatic. Mucous membranes moist. EOMI, PERRLA, bilateral sclera anicteric, no conjunctival injection. Neck supple without JVD, lymphadenopathy, or bruit. Respiratory: Coarse breath sounds bilaterally No rales/rhonic/wheezes. Cardiovascular: Regular rate and rhythm, normal S1-S2 upon ascultation. No murmurs, rubs, or clicks. Abdomen: Soft, round, no pulsatile masses, nondistended and nontender. No rebound, no guarding. Extremities: No cyanosis, clubbing, or edema present. Pulses are palpable 2/2. Right lower extremity BKA Neuro: Alert and orientated x 4. PERRLA. Cranial nerves 2-12 intact without focal deficit. Skin: Warm, dry, and intact, without rash, erythema, or lesion. Psych: pleasant, cooperative, normal speech, normal affect, no hallucinations, no dysarthia Objective Data Vital Signs Vital Signs: Vital Signs - 24 hr 04/30/25 16:00 04/30/25 20:00 04/30/25 20:29 Temperature 98.8 F Pulse Rate 74 80 82 Respiratory Rate 16 Blood Pressure 138/81 Pulse Oximetry 92 Oxygen Delivery Oxygen Flow Rate 04/30/25 20:50 04/30/25 21:00 04/30/25 21:50 Temperature Pulse Rate 82 82 Respiratory Rate 22 H Blood Pressure Pulse Oximetry 93 Oxygen Delivery Room Air High Flow Nasal Cannula Oxygen Flow Rate 8 04/30/25 23:34 05/01/25 00:00 05/01/25 00:00 Temperature 98.5 F Pulse Rate 79 82 Respiratory Rate 18 Blood Pressure 131/55 L Pulse Oximetry 100 97 Oxygen Delivery Nasal Cannula Oxygen Flow Rate 4 05/01/25 00:00 05/01/25 00:00 05/01/25 04:00 Temperature Pulse Rate 76 Respiratory Rate Blood Pressure Pulse Oximetry 97 97 Oxygen Delivery Nasal Cannula High Flow Nasal Cannula Oxygen Flow Rate 2 2 05/01/25 04:34 05/01/25 08:00 05/01/25 08:45 Temperature 98.9 F 98.6 F Pulse Rate 77 76 Respiratory Rate 18 18 Blood Pressure 133/51 L 163/81 H Pulse Oximetry 98 Oxygen Delivery Room Air Oxygen Flow Rate 05/01/25 08:55 05/01/25 09:01 05/01/25 09:15 Temperature Pulse Rate 77 76 78 Respiratory Rate Blood Pressure 153/77 H 151/73 H 157/80 H Pulse Oximetry Oxygen Delivery Oxygen Flow Rate 05/01/25 09:30 05/01/25 09:45 05/01/25 10:00 Temperature Pulse Rate 79 79 78 Respiratory Rate Blood Pressure 157/75 H 158/77 H 166/78 H Pulse Oximetry Oxygen Delivery Oxygen Flow Rate 05/01/25 10:15 05/01/25 10:30 05/01/25 10:45 Temperature Pulse Rate 80 81 73 Respiratory Rate Blood Pressure 173/86 H 158/64 H 171/83 H Pulse Oximetry Oxygen Delivery Oxygen Flow Rate 05/01/25 11:00 05/01/25 11:15 05/01/25 11:30 Temperature Pulse Rate 79 81 81 Respiratory Rate Blood Pressure 168/80 H 171/79 H 167/79 H Pulse Oximetry Oxygen Delivery Oxygen Flow Rate 05/01/25 11:45 05/01/25 12:00 05/01/25 12:15 Temperature Pulse Rate 81 81 82 Respiratory Rate Blood Pressure 167/83 H 165/79 H 166/80 H Pulse Oximetry Oxygen Delivery Oxygen Flow Rate 05/01/25 12:28 05/01/25 12:45 05/01/25 13:11 Temperature 98.4 F Pulse Rate 83 85 89 Respiratory Rate 18 Blood Pressure 164/74 H 162/75 H Pulse Oximetry Oxygen Delivery Oxygen Flow Rate 05/01/25 13:12 Temperature Pulse Rate 89 Respiratory Rate Blood Pressure Pulse Oximetry Oxygen Delivery Oxygen Flow Rate Intake/Output Intake/Output: Intake & Output 04/28/25 04/29/25 04/30/25 05/01/25 23:59 23:59 23:59 23:59 Intake Total 2430 2850 3890 420 Output Total 2300 2800 Balance 130 2850 3890 -2380 Meds/Results Medications: Active Medications Generic Name Dose Route Start Last Admin Trade Name Freq PRN Reason Stop Dose Admin Acetaminophen 650 mg 04/27/25 14:32 Acetaminophen 325 Mg Tablet PO Q4H PRN Mild Pain (1-3) or Fever Albuterol/Ipratropium 3 ml 05/01/25 20:00 Ipratropium 0.5 Mg/Albuterol Sulfate 2.5 Mg Ampul.Neb 3 Ml INHALATION Q6HRT [facility] Amlodipine Besylate 5 mg 04/28/25 17:00 05/01/25 13:12 Amlodipine Besylate 5 Mg Tablet PO 5 mg DAILY SUPA Administration Amoxicillin/Clavulanate Potassium 1 tablet 05/01/25 15:00 Amoxicillin/Clavulanate K 500-125 Mg Tab PO 05/03/25 21:01 Q12HR SUPA Apixaban 2.5 mg 04/27/25 21:00 05/01/25 13:12 Apixaban 2.5 Mg Tablet PO 2.5 mg Q12HR SUPA Administration Dextrose 12.5 gm 04/27/25 14:32 Dextrose 50% 25 Gm/50 Ml Syringe IV PUSH PRN PRN Hypoglycemia Protocol Doxycycline Hyclate 100 mg 05/01/25 21:00 Doxycycline Hyclate 100 Mg Tablet PO 05/08/25 20:59 Q12HR SUPA Epoetin Christian-epbx 10,000 units 05/01/25 18:10 05/01/25 11:40 Epoetin Christian-Epbx 10,000 Units/Ml Vial IV PUSH 05/01/25 18:11 10,000 units ONCE ONE Administration Ergocalciferol 1,250 mcg 04/29/25 09:00 04/29/25 08:52 Ergocalciferol (Vitamin D2) 1,250 Mcg (50,000 Units) Capsule PO 1,250 mcg Sa@0900 SUPA Administration Flecainide Acetate 50 mg 04/27/25 21:00 05/01/25 13:12 Flecainide Acetate 50 Mg Tablet PO 50 mg Q12HR SUPA Administration Glucagon 1 mg 04/27/25 14:32 Glucagon For Inj 1 Mg Vial IM PRN PRN Hypoglycemia Protocol Glucose 15 gm 04/27/25 14:32 Glucose Oral Gel 15 Gm Of Glucse In 37.5 Gm Tube PO PRN PRN Hypoglycemia Protocol Guaifenesin 600 mg 05/01/25 21:00 Guaifenesin 12 Hr 600 Mg Tabcr PO Q12HR SUPA Dextrose 1,000 mls @ 100 mls/hr 04/27/25 14:32 Dextrose 5% 1,000 Ml IVPB PRN PRN Hypoglycemia Protocol Albumin Human 50 mls @ 999 mls/hr 04/28/25 06:11 Albutein IVPB 05/28/25 06:10 Q10M PRN HYPOTENSION Insulin Aspart 3 - 6 units 04/27/25 17:00 05/01/25 15:21 Insulin Aspart (*Bkc) 100 Units/Ml SUB-Q Not Given TIDWM [facility] Protocol Insulin Aspart 1 - 3 units 04/27/25 21:00 04/30/25 20:49 Insulin Aspart (*Bkc) 100 Units/Ml SUB-Q Not Given HS [facility] Protocol Metoprolol Succinate 25 mg 04/28/25 09:00 05/01/25 13:11 Metoprolol Succinate Ext Rel 25 Mg Tabcr PO 25 mg QAM SUPA Administration Tamsulosin HCl 0.4 mg 04/28/25 09:00 05/01/25 13:12 Tamsulosin Hcl 0.4 Mg Capsule PO 0.4 mg DAILY SUPA Administration Radiology Results: ITS Impressions Carotid Doppler Study 04/28/25 15:08 IMPRESSION: 1. <50% stenosis in the right internal carotid artery. 2. <50% stenosis in the left internal carotid artery. Head CT 04/28/25 15:10 IMPRESSION: 1. 2.1 cm left parafalcine meningioma. No acute intracranial process. Brain MRI 05/01/25 08:13 IMPRESSION: 1. Calcified meningioma in the left parafalcine area. 2. Mild brain atrophy. 3. Mild FLAIR hyperintense signal in the right eye. Clinical evaluation advised. 4. Frontal, ethmoid and sphenoid sinus disease. 5. No abnormal enhancement. Chest X-Ray 05/01/25 14:33 IMPRESSION: Pneumonia in the right mid and lower lung zones. Labs Labs: Laboratory Results - last 24 hr 04/30/25 04/30/25 04/30/25 15:22 17:03 20:31 WBC RBC Hgb Hct MCV MCH MCHC RDW Plt Count MPV Puncture Site ABG pH ABG pCO2 ABG pO2 ABG PO2/FiO2 Ratio ABG HCO3 ABG O2 Saturation ABG O2 Content ABG Base Excess A-a Gradient Oxyhemoglobin Total Hemoglobin O2 Delivery Device O2 Liters/Min FiO2 Sodium Potassium Chloride Carbon Dioxide Anion Gap BUN Creatinine Estim Creat Clear Calc Estimated GFR Glucose POC Capillary Glucose 151 H 186 H Calcium Total Bilirubin AST ALT Alkaline Phosphatase Total Protein Albumin C. difficile (PCR) Negative 04/30/25 05/01/25 05/01/25 21:27 04:30 08:27 WBC 12.5 H RBC 2.70 L Hgb 8.5 L Hct 25.6 L MCV 94.8 MCH 31.5 MCHC 33.2 RDW 13.6 Plt Count 103 L MPV 9.8 Puncture Site Right radial ABG pH 7.386 ABG pCO2 33.7 L ABG pO2 46.6 L* ABG PO2/FiO2 Ratio 2.22 ABG HCO3 19.8 L ABG O2 Saturation 82.5 L* ABG O2 Content 10.4 L ABG Base Excess -4.7 A-a Gradient 62.8 Oxyhemoglobin 81.6 L* Total Hemoglobin 9.0 L O2 Delivery Device Room air O2 Liters/Min Not Reportable FiO2 21 Sodium 137 Potassium 3.8 Chloride 102 Carbon Dioxide 21 L Anion Gap 14 H BUN 73 H D Creatinine 7.24 H Estim Creat Clear Calc 9 Estimated GFR 8 L Glucose 149 H POC Capillary Glucose 143 H Calcium 8.3 L Total Bilirubin 0.3 AST 20 ALT 11 Alkaline Phosphatase 63 Total Protein 6.4 Albumin 3.6 C. difficile (PCR) 05/01/25 13:16 WBC RBC Hgb Hct MCV MCH MCHC RDW Plt Count MPV Puncture Site ABG pH ABG pCO2 ABG pO2 ABG PO2/FiO2 Ratio ABG HCO3 ABG O2 Saturation ABG O2 Content ABG Base Excess A-a Gradient Oxyhemoglobin Total Hemoglobin O2 Delivery Device O2 Liters/Min FiO2 Sodium Potassium Chloride Carbon Dioxide Anion Gap BUN Creatinine Estim Creat Clear Calc Estimated GFR Glucose POC Capillary Glucose 99 Calcium Total Bilirubin AST ALT Alkaline Phosphatase Total Protein Albumin C. difficile (PCR)
[2025-05-01 16:47] LABS: Procalcitonin 0.2 ng/mL
[2025-05-01] MEDS: AMOXICILLIN/CLAVULANATE K 500-125 MG TAB 1 TABLET PO ×2 (17:00→20:33)
[2025-05-01 17:25] LABS: Glucose Point of Care 169 mg/dl (65-105)
[2025-05-01] MEDS: IPRATROPIUM 0.5 MG/ALBUTEROL SULFATE 2.5 MG AMPUL.NEB 3 ML INHALATION (19:54)
[2025-05-01] MEDS: guaiFENesin 12 HR 600 MG TABCR PO (20:33)
[2025-05-01] MEDS: DOXYCYCLINE HYCLATE 100 MG TABLET PO (20:33)
[2025-05-01 22:05] LABS: Glucose Point of Care 173 mg/dl (65-105)
[2025-05-02] VITALS (31 sets, daily range): BP systolic 127–156; BP diastolic 56–89; PULSE 56–86; RESP 16–20; TEMP 36.4–37; O2SAT 93–100
[2025-05-02 05:21] LABS: Basophils Absolute Auto 0.1 K/mm3 (0.0-0.1); Basophils Percent Auto 0.4 % (0.2-1.2); Eosinophils Absolute Auto 0.1 K/mm3 (0-0.3); Eosinophils Percent Auto 0.7 % (0-4.4); Hematocrit 27.7 % (42.0-52.0); Immature Granulocyte Absolute 0.04 K/mm3 (0.00-0.031); Immature Granulocyte Percent A 0.4 % (0-0.5); Lymphocytes Absolute Auto 4.78 K/mm3 (0.9-3.2); Lymphocytes Percent Auto 42.7 % (18.3-44.2); Mean Corpuscular HGB Conc 32.5 g/dl (32-36); Mean Corpuscular Hemoglobin 31.3 pg (26-34); Mean Corpuscular Volume 96.2 fl (80-100); Mean Platelet Volume 9.5 fl (7.4-10.4); Monocytes Absolute Auto 0.6 K/mm3 (0.1-0.6); Monocytes Percent Auto 4.9 % (2.6-8.5); Neutrophils Absolute Auto 5.7 K/mm3 (1.3-6.7); Neutrophils Percent Auto 50.9 % (45.5-73.1); Platelet Count Result 108 k/mm3 (150-375); Red Blood Count 2.88 M/mm3 (4.6-6.20); Red Cell Distribution Width 13.9 % (11.5-14.5); White Blood Count 11.2 K/mm3 (4.5-10.0)
[2025-05-02 05:40] LABS: Alanine Aminotransferase 11 U/L (6-50); Albumin Level 3.5 g/dL (3.5-5.1); Alkaline Phosphatase 66 U/L (38-126); Anion Gap 10 mmol/L (4-12); Aspartate Amino Transferase 20 U/L (17-59); Bilirubin,Total 0.6 mg/dL (0.2-1.3); Blood Urea Nitrogen 37 mg/dL (9-20); Calcium 8.8 mg/dL (8.4-10.2); Carbon Dioxide 27 mmol/L (22-30); Chloride 100 mmol/L (98-107); Estimated CRCL calculation 12 ml/min; Estimated Glomerular Filt Rate 11; Glucose 158 mg/dL (65-110); Magnesium 2.1 mg/dL (1.6-2.3); Potassium 3.9 mmol/L (3.4-5.0); Sodium 137 mmol/L (137-145); Total Protein 6.6 g/dL (6.3-8.2)
[2025-05-02] MEDS: IPRATROPIUM 0.5 MG/ALBUTEROL SULFATE 2.5 MG AMPUL.NEB 3 ML INHALATION ×3 (07:41→21:06)
[2025-05-02 08:00] LABS: Glucose Point of Care 131 mg/dl (65-105)
--- NOTE | 2025-05-02 10:25 | P.PNNP_ITS ---
Progress Note: A&P Assessment and Plan (1) End stage renal disease: Code(s): N18.6 - End stage renal disease Status: Chronic Assessment and Plan: * HD today (attempting to maintain Thu///Thursday schedule) * normally does home hemodialysis 4x/week * electrolytes, volume status, and clearance acceptable (2) Syncope: Qualifiers: Syncope type: unspecified Qualified Code(s): R55 - Syncope and collapse Code(s): R55 - Syncope and collapse Status: Acute Assessment and Plan: * presumably from UTI and hypotension * follow telemetry * CT of Brain noted * Neurology & Neurosurgery recommendations noted * Cardiology recommendations noted as well * Echo results reviewed (3) Atrial fibrillation with RVR: Code(s): I48.91 - Unspecified atrial fibrillation Status: Acute Assessment and Plan: * back in normal sinus rhythm * continue rate control strategy * anticoagulation(?) * Echo results noted * Cardiology following (4) Acute UTI: Code(s): N39.0 - Urinary tract infection, site not specified Status: Acute Assessment and Plan: * admission UA highly suggestive * follow urine culture results - no growth to date * on antibiotics (5) Anemia: Code(s): D64.9 - Anemia, unspecified Status: Acute Assessment and Plan: * due to ESRD * getting ALEX with HD * follow trend of H/H (6) HTN (hypertension): Code(s): I10 - Essential (primary) hypertension Status: Chronic Assessment and Plan: * reasonable control at this time * use of metoprolol likely assisting with better control * initially hypotensive on admission * s/p IVF boluses * follow trend of hemodynamics (7) Diabetes: Code(s): E11.9 - Type 2 diabetes mellitus without complications Status: Acute Assessment and Plan: * follow accu-checks * appears diet control as an outpatinet * glycemic control per hospitalist Will continue to follow. L Subjective Date/time seen: 05/02/25 10:25 Interval history: Follow-up for end stage renal disease on hemodialysis (home HD). Tolerating dialysis treatment at the time of my visit (seen on HD at 10:15AM); tolerated dialysis treatment yesterday as well; overall, feels reasonably well; no distress noted; no issues/events overnight or earlier today. Exam 2 Narrative: General: elderly but WD/WN male in NAD Heart: normal S1 and S2; no rub Lungs: coarse at baseses Abdomen: soft, nontender, nondistended, positive bowel sounds Extremities: no cyanosis or clubbing; no edema Skin: no rash Objective Data Vital Signs Vital Signs: Vital Signs Temp Pulse Resp BP Pulse Ox O2 Del Method O2 Flow Rate 05/02/25 10:15 75 144/64 H 05/02/25 10:00 76 138/89 05/02/25 09:45 79 153/66 H 05/02/25 09:38 82 143/62 H 05/02/25 09:20 2 05/02/25 09:20 97.7 F 56 L 16 127/56 L 05/02/25 08:00 76 05/02/25 08:00 98 Nasal Cannula 2 05/02/25 08:00 98.2 F 86 16 133/67 98 05/02/25 08:00 76 20 05/02/25 07:43 75 20 05/02/25 07:43 93 Nasal Cannula 2 05/02/25 04:00 98.1 F 70 20 129/56 L 95 05/02/25 04:00 74 05/02/25 00:00 71 05/02/25 00:00 97.8 F 73 20 128/56 L 96 05/01/25 20:33 86 05/01/25 20:05 78 20 95 Nasal Cannula 2 05/01/25 20:05 78 20 05/01/25 20:00 79 05/01/25 20:00 95 Nasal Cannula 2 05/01/25 20:00 98.5 F 78 16 152/66 H 95 05/01/25 16:00 82 05/01/25 14:07 98.5 F 86 20 146/72 H 92 05/01/25 14:07 98.5 F 86 20 146/72 H 92 Intake/Output Intake/Output: Intake & Output 04/29/25 04/30/25 05/01/25 05/02/25 23:59 23:59 23:59 23:59 Intake Total 2850 3890 1150 240 Output Total 2800 0 Balance 2850 3890 -1650 240 Meds/Results Medications: Active Medications Generic Name Dose Route Start Last Admin Trade Name Freq PRN Reason Stop Dose Admin Acetaminophen 650 mg 04/27/25 14:32 Acetaminophen 325 Mg Tablet PO Q4H PRN Mild Pain (1-3) or Fever Albuterol/Ipratropium 3 ml 05/01/25 20:00 05/02/25 07:41 Ipratropium 0.5 Mg/Albuterol Sulfate 2.5 Mg Ampul.Neb 3 Ml INHALATION 3 ml Q6HRT SUPA Administration Amlodipine Besylate 5 mg 04/28/25 17:00 05/01/25 13:12 Amlodipine Besylate 5 Mg Tablet PO 5 mg DAILY SUPA Administration Amoxicillin/Clavulanate Potassium 1 tablet 05/01/25 15:00 05/01/25 20:33 Amoxicillin/Clavulanate K 500-125 Mg Tab PO 05/03/25 21:01 1 tablet Q12HR SUPA Administration Apixaban 2.5 mg 04/27/25 21:00 05/01/25 20:33 Apixaban 2.5 Mg Tablet PO 2.5 mg Q12HR SUPA Administration Dextrose 12.5 gm 04/27/25 14:32 Dextrose 50% 25 Gm/50 Ml Syringe IV PUSH PRN PRN Hypoglycemia Protocol Doxycycline Hyclate 100 mg 05/01/25 21:00 05/01/25 20:33 Doxycycline Hyclate 100 Mg Tablet PO 05/08/25 20:59 100 mg Q12HR SUPA Administration Epoetin Christian-epbx 10,000 units 05/02/25 18:57 05/02/25 11:49 Epoetin Christian-Epbx 10,000 Units/Ml Vial IV PUSH 05/02/25 18:58 10,000 units ONCE ONE Administration Ergocalciferol 1,250 mcg 04/29/25 09:00 04/29/25 08:52 Ergocalciferol (Vitamin D2) 1,250 Mcg (50,000 Units) Capsule PO 1,250 mcg Sa@0900 SUPA Administration Flecainide Acetate 50 mg 04/27/25 21:00 05/01/25 20:33 Flecainide Acetate 50 Mg Tablet PO 50 mg Q12HR SUPA Administration Glucagon 1 mg 04/27/25 14:32 Glucagon For Inj 1 Mg Vial IM PRN PRN Hypoglycemia Protocol Glucose 15 gm 04/27/25 14:32 Glucose Oral Gel 15 Gm Of Glucse In 37.5 Gm Tube PO PRN PRN Hypoglycemia Protocol Guaifenesin 600 mg 05/01/25 21:00 05/01/25 20:33 Guaifenesin 12 Hr 600 Mg Tabcr PO 600 mg Q12HR SUPA Administration Dextrose 1,000 mls @ 100 mls/hr 04/27/25 14:32 Dextrose 5% 1,000 Ml IVPB PRN PRN Hypoglycemia Protocol Albumin Human 50 mls @ 999 mls/hr 04/28/25 06:11 Albutein IVPB 05/28/25 06:10 Q10M PRN HYPOTENSION Insulin Aspart 3 - 6 units 04/27/25 17:00 05/02/25 12:36 Insulin Aspart (*Bkc) 100 Units/Ml SUB-Q Not Given TIDWM SUPA Protocol Insulin Aspart 1 - 3 units 04/27/25 21:00 05/01/25 20:34 Insulin Aspart (*Bkc) 100 Units/Ml SUB-Q Not Given HS SUPA Protocol Metoprolol Succinate 25 mg 04/28/25 09:00 05/01/25 13:11 Metoprolol Succinate Ext Rel 25 Mg Tabcr PO 25 mg QAM SUPA Administration Tamsulosin HCl 0.4 mg 04/28/25 09:00 05/01/25 13:12 Tamsulosin Hcl 0.4 Mg Capsule PO 0.4 mg DAILY SUPA Administration Radiology Results: ITS Impressions Carotid Doppler Study 04/28/25 15:08 IMPRESSION: 1. <50% stenosis in the right internal carotid artery. 2. <50% stenosis in the left internal carotid artery. Head CT 04/28/25 15:10 IMPRESSION: 1. 2.1 cm left parafalcine meningioma. No acute intracranial process. Brain MRI 05/01/25 08:13 IMPRESSION: 1. Calcified meningioma in the left parafalcine area. 2. Mild brain atrophy. 3. Mild FLAIR hyperintense signal in the right eye. Clinical evaluation advised. 4. Frontal, ethmoid and sphenoid sinus disease. 5. No abnormal enhancement. Chest X-Ray 05/02/25 08:14 IMPRESSION: No significant change from previous examination. Labs Labs: Laboratory Tests 05/02/25 04:39 05/02/25 04:39 Calcium 8.8 Magnesium 2.1 Total Bilirubin 0.6 AST 20 ALT 11 Alkaline Phosphatase 66 Total Protein 6.6 Albumin 3.5 Procalcitonin
[2025-05-02] MEDS: EPOETIN ALFA-EPBX 10,000 UNITS/ML VIAL 10000 UNITS IV PUSH (11:49)
[2025-05-02 12:25] LABS: Glucose Point of Care 112 mg/dl (65-105)
[2025-05-02] MEDS: guaiFENesin 12 HR 600 MG TABCR PO ×2 (13:53→21:32)
[2025-05-02] MEDS: METOPROLOL SUCCINATE EXT REL 25 MG TABCR PO (13:54)
[2025-05-02] MEDS: APIXABAN 2.5 MG TABLET PO ×2 (13:54→21:33)
[2025-05-02] MEDS: amLODIPine BESYLATE 5 MG TABLET PO (13:54)
[2025-05-02] MEDS: FLECAINIDE ACETATE 50 MG TABLET PO ×2 (13:54→21:33)
[2025-05-02] MEDS: DOXYCYCLINE HYCLATE 100 MG TABLET PO ×2 (13:54→21:32)
[2025-05-02] MEDS: TAMSULOSIN HCL 0.4 MG CAPSULE PO (13:54)
[2025-05-02] MEDS: AMOXICILLIN/CLAVULANATE K 500-125 MG TAB 1 TABLET PO ×2 (13:54→21:32)
--- NOTE | 2025-05-02 14:57 | PM.IMPN ---
Progress Note: A&P Assessment and Plan (1) Syncope: Qualifiers: Syncope type: unspecified Qualified Code(s): R55 - Syncope and collapse Code(s): R55 - Syncope and collapse Status: Acute Assessment and Plan: Likely from meningioma, UTI, mild to moderate aortic valve stenosis, and hypotension Syncopal workup Head CT:2.1 cm left parafalcine meningioma. No acute intracranial process. Carotid Doppler:1. <50% stenosis in the right internal carotid artery. 2. <50% stenosis in the left internal carotid artery. Telemetry monitoring Orthostatic vital signs Echocardiogram with bubble study shows Left ventricular systolic function is normal, estimated at 65-70. left ventricular diastolic function is abnormal.mild to moderate aortic valve stenosis with a peak velocity of 240 cm/s, mean gradient of 11 mmHg, and aortic valve area of 1.2 cm2. MRI brain reveals calcified meningioma in the left para falcine 3 area. Frontal ethmoid and sphenoid sinus disease. Mild brain atrophy. Neurosurgery evaluated the patient and reported no acute surgical intervention but serial MRI follow up 30 day monitoring specialist upon discharge Following Neurology and Neurosurgery recommendation (2) Atrial fibrillation with RVR: Code(s): I48.91 - Unspecified atrial fibrillation Status: Acute Assessment and Plan: Back in sinus rhythm. [id number] 3. Discuss anticoagulation but given ESRD cannot go with DOAC, and given significant anemia, concern for bleeding and worsening anemia. Discuss referral for Watchman device, but he is not interested at this time. Cardiology started Flecainide 50 mg BID to restore sinus rhythm. Change Metoprolol Succinate 25 mg daily. Started on Eliquis 2.5 mg BID for anticoagulation. (3) Acute UTI: Code(s): N39.0 - Urinary tract infection, site not specified Status: Acute Assessment and Plan: UA with leukocyte esterase and yeast Culture and sensitivity no growth IV Rocephin Change to oral antibiotics and completed the course (4) Diabetes: Code(s): E11.9 - Type 2 diabetes mellitus without complications Status: Acute Assessment and Plan: Hemoglobin A1c 5.9 on 03/04/2025 Diabetic diet Accu-Cheks a.c. HS SSI (5) ESRD on hemodialysis: Code(s): N18.6 - End stage renal disease; Z99.2 - Dependence on renal dialysis Status: Acute Assessment and Plan: Nephrology consulted Patient does dialysis normally on Thursday He states that this week because he had appointment on Thursday he did dialysis on Thursday and Thursday (6) Hypotension: Code(s): I95.9 - Hypotension, unspecified Status: Acute Assessment and Plan: Appears to be euvolemic Improved with a total of 1 L fluid bolus Monitor for fluid overload Plan Hypoxia/respiratory distress chest x-ray with pulmonary edema. Received a dose of Lasix. Improved with it. Got dialyzed 05/01/2025 Repeat chest x-ray with right pneumonia. Added doxycycline along with Augmentin. Will continue to monitor. Procalcitonin was 0.2. Added DuoNeb. Improving. Another round of dialysis again on 05/02/2025. Still mildly hypoxic. Will wean as tolerated Subjective Date/time seen: 05/02/25 14:57 Interval history: Underwent dialysis again today. Seen during dialysis. Breathing better. Cough is less. Still on 2 L oxygen. Review of Systems Review of Systems: All systems reviewed & are unremarkable except as noted in HPI and below Exam Narrative: General: well appearing, appears stated age. Not in acute distress HEENT: normocephalic, atraumatic. Mucous membranes moist. EOMI, PERRLA, bilateral sclera anicteric, no conjunctival injection. Neck supple without JVD, lymphadenopathy, or bruit. Respiratory: Coarse breath sounds bilaterally No rales/rhonic/wheezes. Cardiovascular: Regular rate and rhythm, normal S1-S2 upon ascultation. No murmurs, rubs, or clicks. Abdomen: Soft, round, no pulsatile masses, nondistended and nontender. No rebound, no guarding. Extremities: No cyanosis, clubbing, or edema present. Pulses are palpable 2/2. Right lower extremity BKA Neuro: Alert and orientated x 4. PERRLA. Cranial nerves 2-12 intact without focal deficit. Skin: Warm, dry, and intact, without rash, erythema, or lesion. Psych: pleasant, cooperative, normal speech, normal affect, no hallucinations, no dysarthia Objective Data Vital Signs Vital Signs: Vital Signs - 24 hr 05/01/25 16:00 05/01/25 20:00 05/01/25 20:00 Temperature 98.5 F Pulse Rate 82 78 Respiratory Rate 16 Blood Pressure 152/66 H Pulse Oximetry 95 95 Oxygen Delivery Nasal Cannula Oxygen Flow Rate 2 05/01/25 20:00 05/01/25 20:05 05/01/25 20:05 Temperature Pulse Rate 79 78 78 Respiratory Rate 20 20 Blood Pressure Pulse Oximetry 95 Oxygen Delivery Nasal Cannula Oxygen Flow Rate 2 05/01/25 20:33 05/02/25 00:00 05/02/25 00:00 Temperature 97.8 F Pulse Rate 86 73 71 Respiratory Rate 20 Blood Pressure 128/56 L Pulse Oximetry 96 Oxygen Delivery Oxygen Flow Rate 05/02/25 04:00 05/02/25 04:00 05/02/25 07:43 Temperature 98.1 F Pulse Rate 74 70 Respiratory Rate 20 Blood Pressure 129/56 L Pulse Oximetry 95 93 Oxygen Delivery Nasal Cannula Oxygen Flow Rate 2 05/02/25 07:43 05/02/25 08:00 05/02/25 08:00 Temperature 98.2 F Pulse Rate 75 76 86 Respiratory Rate 20 20 16 Blood Pressure 133/67 Pulse Oximetry 98 Oxygen Delivery Oxygen Flow Rate 05/02/25 08:00 05/02/25 08:00 05/02/25 09:20 Temperature 97.7 F Pulse Rate 76 56 L Respiratory Rate 16 Blood Pressure 127/56 L Pulse Oximetry 98 Oxygen Delivery Nasal Cannula Oxygen Flow Rate 2 05/02/25 09:20 05/02/25 09:38 05/02/25 09:45 Temperature Pulse Rate 82 79 Respiratory Rate Blood Pressure 143/62 H 153/66 H Pulse Oximetry Oxygen Delivery Oxygen Flow Rate 2 05/02/25 10:00 05/02/25 10:15 05/02/25 10:30 Temperature Pulse Rate 76 75 74 Respiratory Rate Blood Pressure 138/89 144/64 H 150/66 H Pulse Oximetry Oxygen Delivery Oxygen Flow Rate 05/02/25 10:45 05/02/25 11:00 05/02/25 11:15 Temperature Pulse Rate 76 73 74 Respiratory Rate Blood Pressure 153/60 H 151/65 H 143/62 H Pulse Oximetry Oxygen Delivery Oxygen Flow Rate 05/02/25 11:30 05/02/25 11:45 05/02/25 12:00 Temperature Pulse Rate 73 73 70 Respiratory Rate Blood Pressure 142/66 H 148/66 H 150/66 H Pulse Oximetry Oxygen Delivery Oxygen Flow Rate 05/02/25 12:00 05/02/25 12:15 05/02/25 12:30 Temperature Pulse Rate 70 72 72 Respiratory Rate Blood Pressure 152/66 H 148/66 H Pulse Oximetry Oxygen Delivery Oxygen Flow Rate 05/02/25 12:45 05/02/25 13:00 05/02/25 13:15 Temperature Pulse Rate 72 74 76 Respiratory Rate Blood Pressure 153/67 H 139/66 151/71 H Pulse Oximetry Oxygen Delivery Oxygen Flow Rate 05/02/25 13:19 05/02/25 13:31 05/02/25 13:54 Temperature 97.7 F Pulse Rate 77 79 79 Respiratory Rate 16 Blood Pressure 156/67 H 150/67 H Pulse Oximetry Oxygen Delivery Oxygen Flow Rate 05/02/25 13:54 05/02/25 14:10 05/02/25 14:21 Temperature Pulse Rate 79 80 81 Respiratory Rate 20 18 Blood Pressure Pulse Oximetry Oxygen Delivery Oxygen Flow Rate Intake/Output Intake/Output: Intake & Output 04/29/25 04/30/25 05/01/25 05/02/25 23:59 23:59 23:59 23:59 Intake Total 2850 3890 1150 240 Output Total 2800 2800 Balance 2850 3890 -1650 -2560 Meds/Results Medications: Active Medications Generic Name Dose Route Start Last Admin Trade Name Freq PRN Reason Stop Dose Admin Acetaminophen 650 mg 04/27/25 14:32 Acetaminophen 325 Mg Tablet PO Q4H PRN Mild Pain (1-3) or Fever Albuterol/Ipratropium 3 ml 05/01/25 20:00 05/02/25 14:08 Ipratropium 0.5 Mg/Albuterol Sulfate 2.5 Mg Ampul.Neb 3 Ml INHALATION 3 ml Q6HRT SUPA Administration Amlodipine Besylate 5 mg 04/28/25 17:00 05/02/25 13:54 Amlodipine Besylate 5 Mg Tablet PO 5 mg DAILY SUPA Administration Amoxicillin/Clavulanate Potassium 1 tablet 05/01/25 15:00 05/02/25 13:54 Amoxicillin/Clavulanate K 500-125 Mg Tab PO 05/03/25 21:01 1 tablet Q12HR SUPA Administration Apixaban 2.5 mg 04/27/25 21:00 05/02/25 13:54 Apixaban 2.5 Mg Tablet PO 2.5 mg Q12HR SUPA Administration Dextrose 12.5 gm 04/27/25 14:32 Dextrose 50% 25 Gm/50 Ml Syringe IV PUSH PRN PRN Hypoglycemia Protocol Doxycycline Hyclate 100 mg 05/01/25 21:00 05/02/25 13:54 Doxycycline Hyclate 100 Mg Tablet PO 05/08/25 20:59 100 mg Q12HR SUPA Administration Epoetin Christian-epbx 10,000 units 05/02/25 18:57 05/02/25 11:49 Epoetin Christian-Epbx 10,000 Units/Ml Vial IV PUSH 05/02/25 18:58 10,000 units ONCE ONE Administration Ergocalciferol 1,250 mcg 04/29/25 09:00 04/29/25 08:52 Ergocalciferol (Vitamin D2) 1,250 Mcg (50,000 Units) Capsule PO 1,250 mcg Sa@0900 SUPA Administration Flecainide Acetate 50 mg 04/27/25 21:00 05/02/25 13:54 Flecainide Acetate 50 Mg Tablet PO 50 mg Q12HR SUPA Administration Glucagon 1 mg 04/27/25 14:32 Glucagon For Inj 1 Mg Vial IM PRN PRN Hypoglycemia Protocol Glucose 15 gm 04/27/25 14:32 Glucose Oral Gel 15 Gm Of Glucse In 37.5 Gm Tube PO PRN PRN Hypoglycemia Protocol Guaifenesin 600 mg 05/01/25 21:00 05/02/25 13:53 Guaifenesin 12 Hr 600 Mg Tabcr PO 600 mg Q12HR SUPA Administration Dextrose 1,000 mls @ 100 mls/hr 04/27/25 14:32 Dextrose 5% 1,000 Ml IVPB PRN PRN Hypoglycemia Protocol Albumin Human 50 mls @ 999 mls/hr 04/28/25 06:11 Albutein IVPB 05/28/25 06:10 Q10M PRN HYPOTENSION Insulin Aspart 3 - 6 units 04/27/25 17:00 05/02/25 12:36 Insulin Aspart (*Bkc) 100 Units/Ml SUB-Q Not Given TIDWM SUPA Protocol Insulin Aspart 1 - 3 units 04/27/25 21:00 05/01/25 20:34 Insulin Aspart (*Bkc) 100 Units/Ml SUB-Q Not Given HS SUPA Protocol Metoprolol Succinate 25 mg 04/28/25 09:00 05/02/25 13:54 Metoprolol Succinate Ext Rel 25 Mg Tabcr PO 25 mg QAM SUPA Administration Tamsulosin HCl 0.4 mg 04/28/25 09:00 05/02/25 13:54 Tamsulosin Hcl 0.4 Mg Capsule PO 0.4 mg DAILY SUPA Administration Radiology Results: ITS Impressions Carotid Doppler Study 04/28/25 15:08 IMPRESSION: 1. <50% stenosis in the right internal carotid artery. 2. <50% stenosis in the left internal carotid artery. Head CT 04/28/25 15:10 IMPRESSION: 1. 2.1 cm left parafalcine meningioma. No acute intracranial process. Brain MRI 05/01/25 08:13 IMPRESSION: 1. Calcified meningioma in the left parafalcine area. 2. Mild brain atrophy. 3. Mild FLAIR hyperintense signal in the right eye. Clinical evaluation advised. 4. Frontal, ethmoid and sphenoid sinus disease. 5. No abnormal enhancement. Chest X-Ray 05/02/25 08:14 IMPRESSION: No significant change from previous examination. Labs Labs: Laboratory Results - last 24 hr 05/01/25 05/01/25 05/01/25 04:28 17:22 20:11 WBC RBC Hgb Hct MCV MCH MCHC RDW Plt Count MPV Immature Gran % (Auto) Neut % (Auto) Lymph % (Auto) [place] % (Auto) Eos % (Auto) Baso % (Auto) Lymph # (Auto) [place] # (Auto) Eos # (Auto) Baso # (Auto) Abs Immat Gran (auto) Absolute Neuts (auto) Absolute Nucleated RBC Nucleated RBC % Sodium Potassium Chloride Carbon Dioxide Anion Gap BUN Creatinine Estim Creat Clear Calc Estimated GFR Glucose POC Capillary Glucose 169 H 173 H Calcium Magnesium Total Bilirubin AST ALT Alkaline Phosphatase Total Protein Albumin Procalcitonin 0.2 05/02/25 05/02/25 05/02/25 04:39 07:54 12:19 WBC 11.2 H RBC 2.88 L Hgb 9.0 L Hct 27.7 L MCV 96.2 MCH 31.3 MCHC 32.5 RDW 13.9 Plt Count 108 L MPV 9.5 Immature Gran % (Auto) 0.4 Neut % (Auto) 50.9 Lymph % (Auto) 42.7 [place] % (Auto) 4.9 Eos % (Auto) 0.7 Baso % (Auto) 0.4 Lymph # (Auto) 4.78 H [place] # (Auto) 0.6 Eos # (Auto) 0.1 Baso # (Auto) 0.1 Abs Immat Gran (auto) 0.04 H Absolute Neuts (auto) 5.7 Absolute Nucleated RBC 0.000 Nucleated RBC % 0.0 Sodium 137 Potassium 3.9 Chloride 100 Carbon Dioxide 27 Anion Gap 10 BUN 37 H D Creatinine 5.14 H Estim Creat Clear Calc 12 Estimated GFR 11 L Glucose 158 H POC Capillary Glucose 131 H 112 H Calcium 8.8 Magnesium 2.1 Total Bilirubin 0.6 AST 20 ALT 11 Alkaline Phosphatase 66 Total Protein 6.6 Albumin 3.5 Procalcitonin
[2025-05-02 17:31] LABS: Glucose Point of Care 179 mg/dl (65-105)
[2025-05-02 21:44] LABS: Glucose Point of Care 170 mg/dl (65-105)
[2025-05-03] VITALS (16 sets, daily range): BP systolic 113–150; BP diastolic 44–64; PULSE 67–93; RESP 16–20; TEMP 36.2–37.2; O2SAT 93–100
[2025-05-03] MEDS: IPRATROPIUM 0.5 MG/ALBUTEROL SULFATE 2.5 MG AMPUL.NEB 3 ML INHALATION (08:01)
[2025-05-03 08:12] LABS: Glucose Point of Care 134 mg/dl (65-105)
[2025-05-03] MEDS: METOPROLOL SUCCINATE EXT REL 25 MG TABCR PO (08:39)
[2025-05-03] MEDS: DOXYCYCLINE HYCLATE 100 MG TABLET PO (08:39)
[2025-05-03] MEDS: APIXABAN 2.5 MG TABLET PO (08:39)
[2025-05-03] MEDS: AMOXICILLIN/CLAVULANATE K 500-125 MG TAB 1 TABLET PO (08:39)
[2025-05-03] MEDS: guaiFENesin 12 HR 600 MG TABCR PO (08:39)
[2025-05-03] MEDS: TAMSULOSIN HCL 0.4 MG CAPSULE PO (08:39)
[2025-05-03] MEDS: FLECAINIDE ACETATE 50 MG TABLET PO (08:39)
[2025-05-03] MEDS: amLODIPine BESYLATE 5 MG TABLET PO (08:39)
--- NOTE | 2025-05-03 11:59 | HOMEO2EVAL ---
Evaluation was performed at [facility] Home Oxygen Evaluation RC: Home Oxygen (O2) Evaluation Start: 05/03/25 11:13 Freq: ONCE Status: Active Protocol: RPE Activity Type Activity Date Activity User E-sign Co-sign Detail Recorded Client Recorded Date Recorded By Document 05/03/25 11:30 DJO [email or web address] 05/03/25 11:59 DJO Document 05/03/25 11:35 [email or web address] [email or web address] 05/03/25 11:59 DJO Document 05/03/25 11:45 [email or web address] [email or web address] 05/03/25 11:59 DJO 05/03/25 05/03/25 05/03/25 11:30 11:35 11:45 Home O2 Evaluation [Oxygen] -Test Phase Resting Resting -Oxygen Delivery Room Air Room Air Room Air [Pulse Oximetry] -Pulse Oximetry (90-100 %) 99 93 97 [Pulse Rate] -Pulse Rate (60-100 beats/min) 69 73 75 [Evaluation] -Activity Tolerance Fair [Exercise] -Ambulation Distance (feet) 100 -Ambulation Distance (meters) 30.47 [Charges] -Evaluation Charges O2 Evaluation by Pulmonary
--- NOTE | 2025-05-03 11:59 | PCRCNOTE ---
HOME O2 EVAL COMPLETE, NO REQUIREMENTS
[2025-05-03 12:43] LABS: Glucose Point of Care 206 mg/dl (65-105)
--- NOTE | 2025-05-03 12:43 | P.DS_ITS ---
DS: Admitting Diagnosis Discharge Date 05/03/25 Admitting Diagnosis Syncope DS: Discharge Diagnosis Discharge Diagnosis (1) Atrial fibrillation with RVR: Code(s): I48.91 - Unspecified atrial fibrillation Status: Acute (2) Syncope: Qualifiers: Syncope type: unspecified Qualified Code(s): R55 - Syncope and collapse Code(s): R55 - Syncope and collapse Status: Acute DS: Summary Hospital Course Hospital Course: 69-year-old male with past medical history of end-stage renal disease on hemodialysis Thursday, hypertension, diabetes, anemia PVD presents the hospital after syncopal event. Patient was walking to the bathroom whenever he felt lightheaded and fell. Patient does not know if he lost consciousness. Patient's ex- believes that he passed out for 10 the 30 seconds. For EMS the patient was hypotensive at 90/60 and was given a 250 mls with improvement blood pressure. Lab work showed leukocytosis at 10.1 anemia at 11.5, sodium of 133, creatinine of 4.58 which is around baseline, UA is cloudy with trace leukocytes and 6-10 wbc's with yeast present. Chest x-ray shows no acute pulmonary process. EKG shows atrial fibrillation with RVR rate of 125 QTC of 440. In the ED they gave him 5 IV metoprolol for AFib with RVR which dropped his pressure again and he received another 250 of IV fluids. Due to patient still being hypotensive he received a total of 1 L fluid while in the emergency room. And was started on diltiazem and Cardiology was consulted. * Patient was managed for AFib with RVR and was evantually transitioned to Flicainide, and metoprolol and Started on eliquis. showed normal left ventricular function. Discharged on the above meds and patietn will follow up with cardiology in one week for event monitor and further adjustments. orthostatic vital signs showed mild positive thus patient was discharged on Midodrine 2.5mg tid x 10 days * Also managed for Pneumonia discharged on Augmentin and Doxycycline to complete 4 more days of antibiotics. * CT head showed meneingioma, Carotid duplex shwoed no significant carotid stenosis. neurosurgery was consulted for meningioma, evaluated and noted no significant change needing surgical intervention. * Hb continu to stable at 9.0. * Nephrology was involved and patient underwent dialysis while hre * * F/u with PCP in 3-5 days, continue Nephrology, Neurosurgery, cardiology as instructed * Time Spent with Patient Time attestation: Total time spent providing and/or coordinating discharge services: DS: Data Data Completed and Pending Labs on day of discharge: Labs from last 24 hours 05/03/25 05/03/25 05/02/25 12:16 08:02 20:21 POC Capillary Glucose Pending 134 H 170 H 05/02/25 17:12 POC Capillary Glucose 179 H Discharge Plan Discharge Attending physician on discharge: Kinjal Ledesma Consulting providers: Alexis Langston; Nilson Jerez; Jj Cotter; Abelino Duque Discharging Clinician: Kinjal Ledesma Anticipated Discharge Date/Time: 05/03/25 12:25 Patient Disposition: Home Activity: as tolerated Diet: as tolerated and heart healthy Patient Instructions: Antibiotic Form, Apixaban (By mouth) Patient Language: Chilean Stand Alone Forms: General Discharge Information Follow-up/Referrals: Abelino Duque MD [Physician] - (F/u with neurosurgery as instructed ) Nilson Jerez DO [Physician] - (F/u with cardiology as instructed ) Alexis Langston MD [Physician] - (F/u with Nephrology as instructed ) Jj Cotter MD [Physician] - (F/u with Neurology as instructed ) Adryan Galarza MD [Primary Care Provider] - (F/u with PCP in 3-5 days) Discharge Medications: New Eliquis 2.5 mg Tablet 2.5 mg PO Q12HR 30 Days Qty: 60 1RF doxycycline hyclate 100 mg Tablet 100 mg PO Q12HR 4 Days Qty: 8 0RF midodrine 2.5 mg tablet 2.5 mg PO BID 10 Days Qty: 20 0RF Rx Instructions: do not give last dose of day after 6PM or within 4 hrs of bedtime flecainide 50 mg Tablet 50 mg PO Q12HR 30 Days Qty: 60 1RF metoprolol succinate [Toprol XL] 25 mg Tablet Extended Release 24 Hr 25 mg PO QAM 30 Days Qty: 30 0RF amoxicillin-pot clavulanate [Augmentin] 500-125 mg Tablet 1 tablet PO Q12HR 4 Days Qty: 8 0RF Continued tamsulosin 0.4 mg Capsule 0.4 mg PO DAILY ferrous sulfate 324 mg (65 mg iron) Tablet,Delayed Release (Dr/Ec) 324 mg PO DAILY amlodipine 5 mg tablet 5 mg PO DAILY ergocalciferol (vitamin D2) 1,250 mcg (50,000 unit) capsule 1,250 mcg PO WEEKLY Patient Comments: Thursday Rx Instructions: Pt takes on Saturdays. aspirin 325 mg Tablet,Delayed Release (Dr/Ec) 325 mg PO QAM 30 Days Qty: 30 1RF Discontinued metoprolol tartrate 25 mg Tablet 25 mg PO DAILY Date of admission: 04/28/25 08:16 Primary Care Provider: Adryan Galarza Admitting Provider: Harper Esposito Attending physician on admission: Harper Esposito Condition: Serious
[2025-05-03] MEDS: INSULIN ASPART (*BKC) 100 UNITS/ML SUB-Q (12:48)
--- NOTE | 2025-05-04 07:56 | WPDCDIQUERY2 ---
CDI Query Clarification Request Please clarify if UTI was ruled in or ruled out The medical chart reflects the following: Lab work showed leukocytosis at 10.1 anemia at 11.5, sodium of 133, creatinine of 4.58 which is around baseline, UA is cloudy with trace leukocytes and 6-10 wbc's with yeast present. Chest x-ray shows no acute pulmonary process. EKG shows atrial fibrillation with RVR rate of 125 QTC of 440. In the ED they gave him 5 IV metoprolol for AFib with RVR which dropped his pressure again and he received another 250 of IV fluids. Due to patient still being hypotensive he received a total of 1 L fluid while in the emergency room. And was started on diltiazem and Cardiology was consulted. (3) Acute UTI: Code(s): N39.0 - Urinary tract infection, site not specified Status: Acute Assessment and Plan: UA with leukocyte esterase and yeast Culture and sensitivity no growth IV Rocephin RLX UR CX DUE TO ABN UA R82.90 Final 04/28/25-2003 Q Urine Color Yellow Yellow ML Urine Appearance Cloudy H Clear ML Urine pH 5.0 5.0-9.0 ML Specific [place] Ur 1.021 1.001-1.035 ML Urine Protein 4+ H Negative mg/dL ML Urine Glucose 2+ H Negative mg/dL ML Urine Ketones Trace H Negative mg/dL ML Blood Urine Negative Negative ML Urine Nitrate Negative Negative ML Urine Bilirubin Negative Negative ML Urine Urobilinogen 0.2 <2.0 mg/dL ML Leukocyte Esterase Ur Trace H Negative TRISTA/UL ML Urine RBC 0-2 0-2 /hpf ML Urine WBC 6-10 H 0-3 /hpf ML Squamous Epi Ur Occasional Few /hpf ML Urine Bacteria None Seen /hpf ML Urine Budding Yeast Present H None /hpf ML Non Pathogenic Casts 6-10 ML Need Manual Microscopic <Nicole Robles RN - Last Filed: 05/04/25 07:59> Clarified Diagnosis Clarified Diagnosis: UTI ruled out <Kinjal Ledesma MD - Last Filed: 05/04/25 10:30>
== END 2025-05-03 13:45 | disposition home or self-care (01) | DRG 314 ==
LOC: ANHED 13:20 → ANHIMU 16:09 → ANH2MED 04-28 13:25
PROVIDERS: General Practice; Internal Medicine; Internal Medicine Nephrology; Nurse Practitioner; Nurse Practitioner Gerontology; Admitting Provider Family Medicine; Emergency Provider Preventive Medicine Aerospace Medicine; PCP Family Medicine; Visit Provider Internal Medicine
DX: I95.9 Hypotension, unspecified (principal); J18.9 Pneumonia, unspecified organism; N18.6 End stage renal disease; I12.0 Hypertensive chronic kidney disease with stage 5 chronic kidney disease or end stage renal disease; R55 Syncope and collapse; I48.0 Paroxysmal atrial fibrillation; D32.9 Benign neoplasm of meninges, unspecified; I35.0 Nonrheumatic aortic (valve) stenosis; R09.02 Hypoxemia; I73.9 Peripheral vascular disease, unspecified; D64.9 Anemia, unspecified; E11.22 Type 2 diabetes mellitus with diabetic chronic kidney disease; K58.9 Irritable bowel syndrome, unspecified; E83.41 Hypermagnesemia; Z89.511 Acquired absence of right leg below knee; Z99.2 Dependence on renal dialysis
CPT/HCPCS: 36415; 36600; 70450; 70553; 71045; 71046; 80048; 80053; 81001; 82805; 82948; 83735; 84100; 84145; 85018; 85025; 85027; 85380; 87040; 87086; 87493; 87641; 93005; 93306; 93880; 94618; 94640; 96361; 96365; 96375; 99285; A9270; A9577; G0257; G0378; J0696; J1644; J1815; J1938; J7030; J7040; Q5105

== ENCOUNTER 2025-06-28 08:38 | Emergency (ER) | payer MEDICARE, MEDICAID, SELFPAY ==
--- NOTE | ~2025-06-28 | CT_ITS ---
EXAMINATION: CT abdomen pelvis wo con DATE: 06/28/2025 10:06 INDICATION: Left lower quadrant pain TECHNIQUE: Computed tomography (CT) of the abdomen and pelvis was performed without intravenous contr ast. The dose-length product was 738.88 mGy-cm. COMPARISON: None. FINDINGS: There is a 4 mm pulmonary nodule in the right lower lobe. A chest CT is recommended. There are few calcified granulomas in the spleen. The spleen is otherwise unremarkable. Small hiatal hernia. Liver, adrenal glands, and pancreas unremarkable. Gallbladder is unremarkable. No renal calculi. Nonc ontrast images of the kidneys are unremarkable. Mild left-sided hydronephrosis and mild left-sided hy droureter. No ureteral calculi. Moderate concentric thickening of the ramey of the bladder. No bladder calculi. Small to moderate-sized fat-containing right inguinal hernia. Small fat-containing left inguinal butch ia. No abdominal aortic aneurysm. No enlarged lymph nodes in the abdomen or pelvis. Moderate amount of stool. Appendix is not visualized. Short segment focal thickening of the ramey of the distal descending colon and proximal sigmoid colon . Differential includes incomplete bowel wall distention, diverticulitis or mass. Recommend follow-up to resolution. Moderate size compression fracture of the T12 vertebral body which may be old. Correlate clinically. IMPRESSION: 1.Short segment focal thickening of the ramey of the distal descending colon and proximal sigmoid col on. Differential includes incomplete bowel wall distention, diverticulitis or mass. Recommend follow- up to resolution. 2.Mild left-sided hydronephrosis and mild left-sided hydroureter. No ureteral calculi. 3. Moderate concentric thickening of the ramey of the bladder. Differential includes incomplete bladd er wall distention versus cystitis. 4. No bladder calculi. 5.Moderate sized compression fracture of the T12 vertebral body which may be old. Correlate clinicall y. Reviewed, dictated and finalized at location A. IMPRESSION: 1.Short segment focal thickening of the ramey of the distal descending colon an d proximal sigmoid colon. Differential includes incomplete bowel wall distentio n, diverticulitis or mass. Recommend follow-up to resolution. 2.Mild left-sided hydronephrosis and mild left-sided hydroureter. No ureteral c alculi. 3. Moderate concentric thickening of the ramey of the bladder. Differential inc ludes incomplete bladder wall distention versus cystitis. 4. No bladder calculi. 5.Moderate sized compression fracture of the T12 vertebral body which may be ol d. Correlate clinically.
--- NOTE | ~2025-06-28 | XR_ITS ---
EXAMINATION: XR chest 1V portable 06/28/2025 13:26 INDICATION: Oxygen desaturation PROCEDURE: AP portable chest COMPARISON: 05/02/2025 FINDINGS: There is right upper lobe scarring. No focal pneumonia, edema, pleural effusion or pneumoth orax. There is a stent in the left axillary region. The cardiomediastinal silhouette is within normal limits. There are no pleural effusions. There is no pneumothorax suspected. IMPRESSION: 1: NO ACUTE CARDIOPULMONARY DISEASE. Reviewed, dictated and finalized at location A.
--- OUTSIDE RECORDS SUMMARY | 2025-06-28 08:40 | XMS_ITS | Encounter Summary ---
Author Organization 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. [address] [place] [address] documented as of this encounter Visit Diagnoses Not on filedocumented in this encounter Care Teams Fan Engine Engineer Relationship Specialty Start Date End Date Adryan Galarza MD PCP - General FAMILY PRACTICE 12/02/21 documented as of this encounter
--- OUTSIDE RECORDS SUMMARY | 2025-06-28 08:40 | XMS_ITS | Clinical Summary ---
Author Organization [place] [id number] [facility] Address [address] [place] [address] Care Team Providers Care Drop Hammer Pile Driver Operator Name Role Phone No, Physician Primary Care Provider [phone] Allergies No known active allergies Medications blood [...] (12/20/2020): Added automatically from request for surgery [id number] Non-pressure chronic ulcer o f other part of right foot with other specified severity 12/20/2020 Overview (12/20/2020): Added automatically from request for surgery [id number] Type 2 diabetes mellitus with foot ulcer (CODE) 12/20/2020 Overview (12/20/2020): Added automatically from request for surgery [id number] Diabetic polyneuropathy asso ciated with type 2 diabetes mellitus 12/20/2020 Overview (12/20/2020): Added automatically from request for surgery [id number] Gangrene of foot 12/20/2020 Overview (12/26/2020): Added automatically from request for surgery [id number] Assessment & Plan (01/16/2021 8:31 AM ACCOUNT DEVELOPMENT ASSOCIATE): - Pt has completed 2 weeks of [...] Diabetes mellitus (HCC) Type 2 diabetes mellitus Neuropathy Incontinence of urine Incontinence of bowel [...] on file Legal Sex Male 5:28 PM ACCOUNT DEVELOPMENT ASSOCIATE Gender Identity Not on file Sexual Orientation Not on file Obstetrics History Last Filed Vital Signs Vital Sign Reading Time Taken Comments Blood Pressure 145/73 04/07/2023 2:54 PM CDT Pulse 80 04/07/2023 2:54 PM CDT Temperature 36.7 C (98.1 F) 03/04/2022 3:14 PM CDT Respiratory Rate 18 04/07/2023 2:54 PM CDT Oxygen Saturation 97% 01/09/2021 6:05 AM ACCOUNT DEVELOPMENT ASSOCIATE Inhaled Oxygen Concentration - - Weight 70.5 kg (155 lb 6.4 oz) 04/07/2023 2:54 P M CDT Height 170.2 cm (5' 7) 01/09/2023 2:26 PM ACCOUNT DEVELOPMENT ASSOCIATE Body Mass Index 24.34 01/09/2023 2:26 PM ACCOUNT DEVELOPMENT ASSOCIATE Plan of Treatment Health Maintenance Due Date [...] Assessment 04/07/2024 04/07/2023, 01/09/20 21 Influenza Vaccine (#1) 2025 Medical Devices Implanted Type Area Public Speaking Instructor Device Identifier Shelf Expiration Date Model / Serial / Lot Hardware Left: Wrist Procedures Procedure Name Priority Date/Time Associated Diagnosis Comments HEMOGLOBIN A1C STAT 12/20/2020 2:29 PM ACCOUNT DEVELOPMENT ASSOCIATE LIPID PANEL STAT 12/20/2020 2:29 [address] ACCOUNT DEVELOPMENT ASSOCIATE CT ABDOMEN PELVIS WO CONTRAST Routine 08/11/2013 12:00 AM CDT from Last 3 Months or Most Recently Relevant to Health Maintenance Results * (ABNORMAL) Hemoglobin A1c (12/20/2020 2:29 PM ACCOUNT DEVELOPMENT ASSOCIATE) Hgb A1C 11.9(H) 4.0 - 5.6 % [facility] Estimated Average Glucose 295 mg/dL [facility] Comment: The ADA recommends reporting an estimated Average Glucose (eAG) with all Hemoglobin A1c results using the equation derived from a study of 507 normal and diabetic adults. Minority populations were underrepresented and children were not included. (Diabetes Care 31:7834-3016, 2008). The eAG is not equivalent to a fasting glucose. Blood specimen (specimen) 12/20/2020 2:29 PM ACCOUNT DEVELOPMENT ASSOCIATE 12/20/2020 2:52 PM ACCOUNT DEVELOPMENT ASSOCIATE us Gabino Rodriguez MD LAB BLOOD ORDERABLES Final Re sult [facility] Department [place] [address] * (ABNORMAL) Lipid panel (12/20/2020 2:29 PM ACCOUNT DEVELOPMENT ASSOCIATE) Cholesterol 73 30 - 199 mg/dL [facility] Comment: Interpretive Data Ages < [...] revised on 2018. Triglycerides 72 <=149 mg/dL [facility] Comment: Interpretive Data Ages < [...] revised on 2018. HDL 25(L) >=40 mg/dL [facility] Comment: Interpretive Data Ages < [...] on 2018. LDL, calculated 34 <=129 mg/dL [facility] Comment: Interpretive Data Ages < [...] revised on 2018. Non-HDL Cholesterol 48 mg/dL [facility] Comment: Interpretive Data Ages < [...] last revised on 2018. Chol/HDL ratio 3 [facility] Blood specimen (specimen) 12/20/2020 2:29 PM ACCOUNT DEVELOPMENT ASSOCIATE 12/20/2020 2:49 PM ACCOUNT DEVELOPMENT ASSOCIATE us Gabino Rodriguez MD LAB BLOOD ORDERABLES Edited R esult - Final [facility] Department [place] [address] * CT Abdomen Pelvis WO Contrast (08/11/2013 [...] Cody M.D. MJ:yoshi 08:01 PM 08:01 PM [facility] [EOD] Narrative 08/11/2013 8:05 PM CDT [...] Mild thickening of the rectum unchanged from [id number] exam. This may reflect nondistention with contrast [...] Cody M.D. MJ:yoshi 08:01 PM 08:01 PM [facility] [EOD] us Historical Provider MD PALM CT PROCEDURES Final R esult from Last 3 Months or Most Recently Relevant to Health Maintenance Insurance [facility] MEDICARE [facility] MEDICARE [place] Advance Directives For more information, please contact: [phone] Documents on File Type Date Recorded Patient Manager Of Applications Development Expl anation ADVANCE DIRECTIVE 02/17/2021 8:14 PM Power of Career Development Specialist-Medical ADVANCE DIRECTIVE 01/08/2021 1:22 AM Power of Career Development Specialist-Medical ADVANCE DIRECTIVE 01/08/2021 1:21 AM Power of Career Development Specialist-Financial/Medical * Full Code (Latest Code Status on File) Date Activated Date Inactivated Comments 12/20/2020 11:43 PM 01/09/2021 3:30 PM Care Teams Drop Hammer Pile Driver Operator Relationship Specialty Start Date End Date No, Physician PCP - General 01/09/21
--- OUTSIDE RECORDS SUMMARY | 2025-06-28 08:41 | XMS_ITS | Clinical Summary ---
Author Organization [facility] Address [address] [place] [address] Care Team Providers Care Travel Money Advisor Name Role Phone Adryan Galarza MD Primary Care Provider [phone] Allergies No known active allergies Medications Blood [...] stage 5, GFR less than 15 ml/min ([facility]/HCC HHS/HCC) Take 1 tablet (81 mg total) by mouth daily. 4 Active epoetin charlie-epbx (RETACRIT) 00954 Units/mL injectionIndic ations:Anemia in stage 4 chronic [...] kidney disease) stage 4, GFR 15-29 ml/min ([facility]) 12/02/2021 Primary hypertension 12/02/2021 Type 2 diabetes mellitus wit h diabetic nephropathy, with long-term current use of insulin ([facility]) 12/02/2021 Family History Medical History Relation Comments Diabetes Maternal Grandmother Cancer Mother Diabetes Paternal Grandmother Relation Status Comments Maternal Grandmother Mother Paternal Grandmother Social History Tobacco Use Types Packs/Day Years Used Date Smoking Tobacco: Never Smokeless Tobacco: Never Tobacco Cessation:Counseling Given: No Alcohol Use Standard Drinks/Week Comments Not Currently 0 (1 standard drink = 0.6 oz pur e alcohol) [facility] [employer] Answer Date Recorded In the past 12 months has e [employer], gas, oil, or water [employer] threatened to shut off services in your [...] week 02/11/2024 How often do you attend tenriism or scientologist serv ices? Patient declined 02/11/2024 Do you belong to any clubs o r organizations such as tenriism groups, unions, fraternal or athletic groups, or [...] Recorded Patient Health Questionnaire-2 Score 0 02/02/2024 [facility] - Occupational Stress Questionnaire Answer Date [...] place to sleep or slept in a penitentiary (including now)? 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 [address] [place], [place] [id number] Health Maintenance Due Date Last Done Comments Colorectal Cancer Screening Colonoscopy (10 Years) 1957 Kidney Health Evaluation 1957 Lipid Panel 1957 Diabetes: Retinopathy Eye Exam 1975 Hepatitis C 1975 DTaP, Tdap and Td Vaccines (1 - Tdap) 1976 Pneumococcal Vaccine: 50+ Years (1 of 2 - PCV) 1976 Zoster Vaccines (1 of 2) 2007 RSV Immunization or 60+ Years (1 - Risk 60-74 years 1-dose series) 2017 Annual Medicare Wellness Visit 2022 Hemoglobin A1C 05/23/2024 11/23/2023, 03/16, 11/02/2021, Additional history exists COVID-19 Vaccine ( season) 2024 PHQ-2 (Physician [place]) 11/16/2024 02/02/2024 Meningococcal B Vaccine Aged Out [...] Comments HEMOGLOBIN, GLYCOSYLATED Routine 11/23/2023 8:59 AM DESIGN PROJECT MANAGER from Last 3 Months or Most Recently Relevant to Health Maintenance Results * HEMOGLOBIN, GLYCOSYLATED (11/23/2023 8:59 AM DESIGN PROJECT MANAGER) HGB A1C 5.5 <5.7 % of total Hgb [employer] [facility] Comment: For the purpose of screening for the presence of diabetes: <5.7% Consistent with the absence of diabetes 5.7-6.4% Consistent with increased risk for diabetes (prediabetes) > or =6.5% Consistent with diabetes This assay result is consistent with a decreased risk of diabetes. Currently, no consensus exists regarding use of hemoglobin A1c for diagnosis of diabetes in children. According to [place] Diabetes Association (ADA) guidelines, hemoglobin A1c <7.0% represents optimal control in non- diabetic patients. Different metrics may apply to specific patient populations. Standards of Medical Care in Diabetes(ADA). HbA1c performed on [employer]. 11/23/2023 8:59 AM DESIGN PROJECT MANAGER 11/23/2023 8:59 AM DESIGN PROJECT MANAGER Narrative Resulting Agency Comment Performing Organization Information: Site ID: [id number] Name: [facility] [place] Address: [address] [place] [id number] Director: Azeb Ortiz MD Radhames Cardenas MD LABORATORY Final Result [facility] [employer] [facility] [address] [place] [address], from Last 3 Months or Most Recently Relevant to Health Maintenance Insurance MEDICAID MEDICARE MEDICARE MEDICAID Advance Directives * Full Code (Latest Code Status on File) Date Activated Date Inactivated Comments 02/11/2024 4:45 AM 02/16/2024 3:45 PM * Full Code Date Activated Date Inactivated Comments 10/17/2022 4:39 PM 10/22/2022 6:32 PM Care Teams Travel Money Advisor Relationship Specialty Start Date End Date Adryan Galarza MD PCP - General FAMILY PRACTICE 12/02/21
--- OUTSIDE RECORDS SUMMARY | 2025-06-28 08:41 | XMS_ITS | Encounter Summary ---
Author Organization [facility] Address [address] [place] [address] Care Team Providers Care Compliance Officer Name Role Phone Adryan Galarza MD Primary Care Provider Encounter Details Date Type Department Care Team (Late st Contact Info) Description 02/18/2024 Hospital Follow-up Call [facility] Unit [address] [place] [address] Mica Null RN Social History Tobacco Use Types Packs/Day Years Used Date Smoking Tobacco: Never Smokeless Tobacco: Never Alcohol Use Standard Drinks/Week Comments Not Currently 0 (1 standard drink = 0.6 oz pur e alcohol) [facility] Utilities Answer Date Recorded In the past 12 months has [facility] [email or web address], gas, oil, or water [employer] threatened to shut off services in your [...] week 02/11/2024 How often do you attend spiritism or pentecostalism serv ices? Patient declined 02/11/2024 Do you belong to any clubs o r organizations such as spiritism groups, unions, fraternal or athletic groups, or [...] Recorded Patient Health Questionnaire-2 Score 0 02/02/2024 [facility] - Occupational [...] place to sleep or slept in a detention (including now)? No 02/11/2024 Sex and Gender Information Value Date Recorded Sex Assigned at Not on file Legal Sex Male 10:46 PM HAND HEEL SEAT FITTER Gender Identity Not on file Sexual Orientation [...] documented in this encounter Plan of Treatment Upcoming Encounters Date Type Department Care Team (Late st Contact Info) Description 08/04/2025 9:30 AM CDT Office Visit [facility] [place] [place] [address] Jose Antonio Grajeda MD [facility]. [address] [place], [place] [id number] documented as of this encounter Goals Goal Patient Goal Type Associated Problems Recent Progress Patient-Stated? Author Safety Patient/family will have appropriate support at home upon discharge Lifestyle Zenaida Berrios RN documented as of this encounter Visit Diagnoses Not on filedocumented in this encounter Additional Health Concerns Assessment Noted Time PHQ-9 Depression Total Score: 0 12/02/19 23 10:36 AM HAND HEEL SEAT FITTER documented as of this encounter Care Teams Compliance Officer Relationship Specialty Start Date End Date Adryan Galarza MD PCP - General FAMILY PRACTICE 12/02/21 documented as of this encounter
[2025-06-28 08:45] VITALS: BP 193/75; PULSE 89; RESP 20; TEMP 36.5; O2SAT 100
--- NOTE | 2025-06-28 09:00 | ECG_ITS ---
Test Date: 2025-06-28 09:43:06 Measurements Intervals [place] Rate: 83 P: 62 [place]: 156 QRS: -40 QRSD: 111 T: 53 QT: 439 QTc: 517 Interpretive Statements SINUS RHYTHM LEFT AXIS DEVIATION BASELINE ARTIFACT- I, II, III, AVR, AVL, AVF, V1-V6 BORDERLINE ECG Compared to ECG 04/28/2025 11:58:49 NO SIGNIFICANT CHANGE Electronically Signed On 06-28-2025 10:17:30 CDT by Nilson Jerez D.O.
--- NOTE | 2025-06-28 09:02 | ED.ABDPAIN ---
HPI - Abdominal Pain General Chief Complaint: Abdominal Pain Stated Complaint: abd pain/vomiting Time Seen by Provider: 06/28/25 08:49 History of Present Illness HPI narrative: Patient is a 70-year-old male who presents to the ER with significant left lower quadrant abdominal pain. He reports the pain started approximately 2-3 days ago. Patient reports the pain got significantly worse this morning. He has never experienced anything like this before. Patient reports he does peritoneal dialysis 4 days a week. His daughter reports yesterday she took 2.8 L off. Patient also endorses a history of diabetes, high blood pressure and right lower leg BKA. He denies any back pain, shortness of breath, or recent fevers. Related Data Home Medications ?Medication ?Instructions ?Recorded ?Confirmed ?Last Taken ?Type ferrous sulfate 324 mg (65 mg 324 mg PO DAILY 12/16/23 04/27/25 04/27/25 History iron) tablet,delayed release tamsulosin 0.4 mg capsule 0.4 mg PO DAILY 12/16/23 04/27/25 04/27/25 History amlodipine 5 mg tablet 5 mg PO DAILY 02/10/24 04/27/25 04/27/25 History Allergies Allergy/AdvReac Type Severity Reaction Status Date / Time No Known Allergies Allergy Verified 06/28/25 09:31 Review of Systems Review of Systems: All systems reviewed & are unremarkable except as noted in HPI and below PMFSH Past Medical History Medical History PVD (peripheral vascular disease) Anemia End stage renal disease Urinary retention Overweight (BMI 25.0-29.9) Diarrhea HTN (hypertension) IBS (irritable bowel syndrome) Diabetes Surgical History Surgical History Status post below knee amputation of right lower extremity S/P dialysis catheter insertion S/P arteriovenous (AV) fistula creation Family History Family History Father Congestive heart failure Mother Cancer Social History Social History Smoking status: Never smoker Second hand tobacco smoke exposure: Yes Alcohol intake: former Drinks per week: 0 Substance use: never Substance use type: does not use Do You Feel Safe in your Home?: Yes Lack of Transportation: No Lack of Food: Never True Current Housing: I Have Housing Concerned About Future Housing: No Difficulty Paying Gas/Electric Bills: No Difficulty Paying for Meds: No Currently Unemployed: No Education: High School Diploma/GED Difficulty w/ Childcare or Family Care: No Living arrangements: with family Spiritual care concerns: No Exam Narrative: GENERAL: Ill appearing, obese, non-toxic, in acute distress d/t pain. HEAD: Normocephalic, atraumatic. NECK: Supple. No adenopathy, no masses. RESPIRATORY: Airway patent, respirations nonlabored. Clear to auscultation bilaterally, no rales, rhonchi, wheezing. CARDIOVASCULAR: Regular rate and rhythm without murmurs, rubs, or gallops. Peripheral pulses 2+ and equal bilaterally. ABDOMINAL: Soft, all four quadrants + tenderness, + distended. Normoactive BS. Negative Psoas MUSCULOSKELETAL: Moves all extremities. Strength/ROM intact without gross deformities. SKIN: Warm, dry, normal color. No rashes. NEURO: A&O X3. Speech clear. Cranial nerves II-XII intact. No ataxic movements. PSYCHIATRIC: Appropriate mood and affect. Normal interaction. Course Vital Signs Vital signs: Vital Signs Temperature 36.5 C 06/28/25 08:45 Pulse Rate 89 06/28/25 08:45 Respiratory Rate 20 06/28/25 08:45 Blood Pressure 193/75 H 06/28/25 08:45 Pulse Oximetry 100 06/28/25 08:45 Oxygen Delivery Room Air 06/28/25 08:45 Temperature 36.5 C 06/28/25 08:45 Pulse Rate 90 06/28/25 13:42 Respiratory Rate 16 06/28/25 13:42 Blood Pressure 155/101 H 06/28/25 13:42 Pulse Oximetry 100 06/28/25 13:42 Oxygen Delivery Nasal Cannula 06/28/25 11:57 Oxygen Flow Rate 2 06/28/25 11:57 MDM - Abdominal Pain MDM Narrative Medical decision making narrative: Patient is a 70-year-old male who presents to the ER with significant left lower quadrant abdominal pain. He reports the pain started approximately 2-3 days ago. Patient reports the pain got significantly worse this morning. He has never experienced anything like this before. Patient reports he does peritoneal dialysis 4 days a week. His daughter reports yesterday she took 2.8 L off. Patient also endorses a history of diabetes, high blood pressure and right lower leg BKA. He denies any back pain, shortness of breath, or recent fevers. Labs Ordered: CBC, CMP, lipase, PTT, INR, UA, CRP, lactic acid Imaging Ordered: CT abdomen pelvis Medications Ordered: 1 L normal saline IV bolus, 1 mg Dilaudid IV Results: Diagnosis: Risks: SIRS, Sepsis, and Septic Shock Criteria from [employer] on 06/28/2025 All calculations should be rechecked by clinician prior to use RESULT SUMMARY: This patient meets SIRS criteria. INPUTS: Temp >38?C (100.4?F) or <36?C (96.8?F) ?> 0 = No Heart rate >90 ?> 0 = No Respiratory rate >20 or [place]? <32 mm Hg ?> 1 = Yes WBC >12,000/mm?, <4,000/mm?, or >10% bands ?> 1 = Yes Suspected or present source of infection ?> 0 = No Lactic acidosis, SBP <90 or SBP drop >=0 mm Hg of normal ?> 0 = No Severe sepsis with hypotension, despite adequate fluid resuscitation ?> 0 = No Evidence of >= organs failing ?> 0 = No Less than 30ml/kg crystalloid bolus was ordered because it would be detrimental or harmful for the patient The patient has the following condition [Renal failure, Blood Pressure responded to Lesser Volume]. In place of the 30ml/kg crystalloid bolus, the patient is to receive NS 20ml/kg bolus (76.9kg) Consults: gastroenterology 1100-spoke with GI, Dr. Hutchinson, who reports patient can be discharged home on oral antibiotics. He should follow-up with GI outpatient. Dr. Hutchinson reports patient needs a colonoscopy. CRITICAL CARE ADDENDUM: Indication: resp failure, COPD exacerbation requiring NIPPV Time type: intermittent I provided a total of 36 minutes of critical care excluding separately billable procedures. This includes time w/ EMS, initial bedside evaluation, reviewing old records, review of testing done while under my care, discussion w/ the family, nurses, senior safety management consultant and guiding the patient?s care while in the emergency department. Approximate time distribution: 15 minutes ? Initial evaluation, d/w involved parties, attempting to gather old records. 10 minutes ? Review of results (EKGs, labs, imaging), Documenting medical record 11 minutes ? Serial repeat bedside evaluation 10 minutes ? Discussing case with multiple providers Excludes separately billable procedures. Patient Education/Shared MDM: Results of lab work and imaging shared with patient. He endorses improvement of symptoms following medication administration. Patient strongly advised to maintain hydration status upon discharge and follow-up with Gastroenterology as soon as possible. He will be discharged home with a prescription for ciprofloxacin, Flagyl, and Bentyl. Strict return precautions provided. Patient verbalized understanding and is in agreement with plan. Vital signs stable at time of discharge. All questions answered. 1200-Patient was up for discharge when the nurse reported to GOLF COURSE PATROLLER that pt's oxygen saturation had dropped while he was sleeping. Upon further discussion with family, it was noted that pt does not have any history of sleep apnea, COPD, or asthma. His significant other reports pt has had to go on oxygen in the past when he has gone into atrial fibrillation. Pt is not in atrial fibrillation at this time. He does endorses nausea at time of re-examination. Pt will receive Zofran and will continue to be monitored. Patient was on room air for approximately 1 hour and his oxygen saturations stayed up above 95%. He reports his left lower quadrant abdominal pain has returned. Patient will be given a dose of Larned p.o. here in the ER. He will be discharged home with a prescription for Zofran p.o. It was explained to patient that he does not meet criteria for admission, but he needs to push fluids and follow-up with gastroenterology as previously advised. Patient reports he has an appointment with his marketing database analyst tomorrow. He was strongly advised to keep this appointment. PT was able to tolerate his PO challenge. Differential Diagnosis Differential diagnosis: Likely abdominal pain, calculus of kidney, constipation, diverticulitis, gastroenteritis and small bowel obstruction Lab Data Attestation: I reviewed the patient's lab results. 06/28/25 08:58 06/28/25 08:58 Labs: Lab Results 06/28/25 06/28/25 06/28/25 Range/Units 08:58 10:56 12:56 WBC 11.6 H (4.5-10.0) K/mm3 RBC 3.71 L (4.6-6.20) M/mm3 Hgb 12.0 L D (14.0-18.0) g/dL Hct 33.0 L (42.0-52.0) % MCV 88.9 (80-100) fl MCH 32.3 (26-34) pg MCHC 36.4 H (32-36) g/dl RDW 13.4 (11.5-14.5) % Plt Count 132 L (150-375) k/mm3 MPV 8.5 (7.4-10.4) fl Immature Gran % (Auto) 0.1 (0-0.5) % Neut % (Auto) 31.1 L (45.5-73.1) % Lymph % (Auto) 64.3 H (18.3-44.2) % Wilson % (Auto) 3.6 (2.6-8.5) % Eos % (Auto) 0.6 (0-4.4) % Baso % (Auto) 0.3 (0.2-1.2) % Lymph # (Auto) 7.44 H (0.9-3.2) K/mm3 Wilson # (Auto) 0.4 (0.1-0.6) K/mm3 Eos # (Auto) 0.1 (0-0.3) K/mm3 Baso # (Auto) 0.0 (0.0-0.1) K/mm3 Abs Immat Gran (auto) 0.01 (0.00-0.031) K/mm3 Absolute Neuts (auto) 3.6 (1.3-6.7) K/mm3 Absolute Nucleated RBC 0.000 (0.0-0.012) K/mm3 Band Neutrophils % Not Reportable Nucleated RBC % 0.0 (0.0-0.2) % Atypical Lymphocytes Present Smudge Cells Present Platelet Estimate Slightly decreased (Adequate) Schistocytes None seen PT 13.1 (11.1-14.7) Seconds INR 1.0 APTT 37.6 H (22.3-36.8) Seconds Sodium 131 L (137-145) mmol/L Potassium 3.6 (3.4-5.0) mmol/L Chloride 94 L (98-107) mmol/L Carbon Dioxide 21 L (22-30) mmol/L Anion Gap 16 H (4-12) mmol/L BUN 49 H D (9-20) mg/dL Creatinine 5.01 H (0.7-1.3) mg/dL Estim Creat Clear Calc 12 ml/min Estimated GFR 12 L (59 - ) Glucose 229 H (65-110) mg/dL Lactic Acid 1.3 (0.7-2.0) mmol/L Calcium 9.4 (8.4-10.2) mg/dL Total Bilirubin 0.4 (0.2-1.3) mg/dL AST 23 (17-59) U/L ALT 18 (6-50) U/L Alkaline Phosphatase 94 (38-126) U/L Troponin I 0.020 (0.000-0.034) ng/mL C-Reactive Protein < 0.5 (<1.0) mg/dL Total Protein 7.5 (6.3-8.2) g/dL Albumin 4.3 (3.5-5.1) g/dL Lipase 276 (23-300) U/L Urine Color Yellow (Yellow) Urine Appearance Clear (Clear) Urine pH 6.5 (5.0-9.0) Ur Specific Haynes 1.016 (1.001-1.035) Urine Protein 3+ H (Negative) mg/dL Urine Glucose (UA) 2+ H (Negative) mg/dL Urine Ketones Trace H (Negative) mg/dL Ur Blood (Man) 1+ H (Negative) Urine Nitrate Negative (Negative) Urine Bilirubin Negative (Negative) Urine Urobilinogen 0.2 (<2.0) mg/dL Add Ur Microanalysis Reviewed Leukocyte Esterase Rfl Trace H (Negative) TRISTA/UL Urine RBC 6-10 H (0-2) /hpf Urine WBC 0-5 (0-3) /hpf Ur Squamous Epith Cells None seen (Few) /hpf Urine Bacteria None seen /hpf Urine Casts 0-2 Imaging Data Attestation: I personally reviewed and interpreted this imaging study as follows: Radiologist's impression: ITS Impressions Abdomen/Pelvis CT 06/28/25 10:07 IMPRESSION: 1.Short segment focal thickening of the ramey of the distal descending colon and proximal sigmoid colon. Differential includes incomplete bowel wall distention, diverticulitis or mass. Recommend follow-up to resolution. 2.Mild left-sided hydronephrosis and mild left-sided hydroureter. No ureteral calculi. 3. Moderate concentric thickening of the ramey of the bladder. Differential includes incomplete bladder wall distention versus cystitis. 4. No bladder calculi. 5.Moderate sized compression fracture of the T12 vertebral body which may be old. Correlate clinically. Chest X-Ray 06/28/25 13:28 IMPRESSION: 1: NO ACUTE CARDIOPULMONARY DISEASE. Critical Care Time Critical Care Time Critical Care Time: Yes Total Critical Care Time: 36 Discharge Plan Discharge Clinical Impression: Diverticulitis, Abdominal pain, acute, left lower quadrant, History of peritoneal dialysis Patient Disposition: Home Condition: Stable Instructions: Antibiotic Form, Diverticulitis (ED) Additional Instructions: Please return to the ER with any worsening symptoms. Follow-up with Gastroenterology as soon as possible. Take all medications as prescribed, including regularly scheduled medications. Please complete your full dose of oral antibiotics. You may use Bentyl as needed for pain control. Patient Language: Estonian Prescriptions: New ciprofloxacin HCl 500 mg tablet 500 mg PO Q12H Qty: 20 0RF metronidazole 500 mg tablet 500 mg PO BID Qty: 20 0RF dicyclomine 20 mg tablet 20 mg PO TID Qty: 30 0RF ondansetron 4 mg tablet,disintegrating 4 mg PO Q8H Qty: 14 0RF No Action tamsulosin 0.4 mg Capsule 0.4 mg PO DAILY ferrous sulfate 324 mg (65 mg iron) Tablet,Delayed Release (Dr/Ec) 324 mg PO DAILY amlodipine 5 mg tablet 5 mg PO DAILY flecainide 100 mg tablet 100 mg PO Q12H Qty: 60 5RF aspirin 325 mg Tablet,Delayed Release (Dr/Ec) 325 mg PO QAM 30 Days Qty: 30 1RF metoprolol succinate [Toprol XL] 25 mg Tablet Extended Release 24 Hr 25 mg PO QAM 30 Days Qty: 30 0RF Follow-up/Referrals: Adryan Galarza MD [Primary Care Provider] - Time of Disposition: 11:38
[2025-06-28 09:06] LABS: Hematocrit 33.0 % (42.0-52.0); Hemoglobin 12.0 g/dL (14.0-18.0); Immature Granulocyte Percent A 0.1 % (0-0.5); Lymphocytes Absolute Auto 7.44 K/mm3 (0.9-3.2); Mean Corpuscular HGB Conc 36.4 g/dl (32-36); Mean Corpuscular Hemoglobin 32.3 pg (26-34); Mean Corpuscular Volume 88.9 fl (80-100); Nucleated Red Blood Cells Absolute Auto 0.000 K/mm3 (0.0-0.012); Nucleated Red Blood Cells Perc 0.0 % (0.0-0.2); Platelet Count Result 132 k/mm3 (150-375); Red Blood Count 3.71 M/mm3 (4.6-6.20); White Blood Count 11.6 K/mm3 (4.5-10.0)
[2025-06-28 09:17] LABS: INR 1.0; Prothrombin Time 13.1 Seconds (11.1-14.7)
[2025-06-28 09:18] LABS: Partial Thromboplastin Time 37.6 Seconds (22.3-36.8)
[2025-06-28 09:23] LABS: Alanine Aminotransferase 18 U/L (6-50); Albumin Level 4.3 g/dL (3.5-5.1); Alkaline Phosphatase 94 U/L (38-126); Anion Gap 16 mmol/L (4-12); Aspartate Amino Transferase 23 U/L (17-59); Bilirubin,Total 0.4 mg/dL (0.2-1.3); Blood Urea Nitrogen 49 mg/dL (9-20); CRP < 0.5 mg/dL (<1.0); Calcium 9.4 mg/dL (8.4-10.2); Carbon Dioxide 21 mmol/L (22-30); Chloride 94 mmol/L (98-107); Estimated CRCL calculation 12 ml/min; Estimated Glomerular Filt Rate 12; Glucose 229 mg/dL (65-110); Lipase 276 U/L (23-300); Potassium 3.6 mmol/L (3.4-5.0); Sodium 131 mmol/L (137-145); Total Protein 7.5 g/dL (6.3-8.2)
[2025-06-28 09:27] LABS: Schistocytes None Seen; Smudge Cells PRESENT
[2025-06-28 09:31] LABS: Troponin I 0.020 ng/mL (0.000-0.034)
[2025-06-28] MEDS: HYDROmorphone HCL INJ (*CRX) 2 MG/ML VIAL 1 MG IV PUSH (09:39)
[2025-06-28] MEDS: SODIUM CHLORIDE 0.9% IV 1,000 ML 999 ML IV CONT ×2 (09:39→11:35)
[2025-06-28] MEDS: ONDANSETRON INJ 4 MG/2 ML VIAL IV PUSH ×2 (09:39→12:28)
--- NOTE | 2025-06-28 11:14 | PC.NURSE ---
pt did not want to take his pants off when he got into the room but he did have his shirt off and in a hospital gown. pt was in a lot of pain and did not want to move. pt then wanted to take his R prostatic leg off to attempt to get more comfortable and did. after this RN took the pt to the bathroom he did want to take his pants off.
[2025-06-28] MEDS: DICYCLOMINE HCL 10 MG CAPSULE 20 MG PO (11:33)
[2025-06-28] MEDS: cefTRIAXone 1 GM in SODIUM CHLORIDE 0.9% IV 50 ML 100 ML IVPB (11:35)
[2025-06-28 11:57] VITALS: O2SAT 83; O2SAT 98
[2025-06-28] MEDS: metroNIDAZOLE 500 MG/ISO 100ML 500 MG/100 ML BAG 100 MG IVPB (12:28)
--- NOTE | 2025-06-28 12:30 | PC.NURSE ---
Bladder scan revealed 91mL in bladder. Pt. attempted to urinate and was unable to. lead cytogenetic technologist at bedside setting up for straight cath.
[2025-06-28 12:31] VITALS: BP 146/61; PULSE 84; RESP 14; O2SAT 98
[2025-06-28 13:11] LABS: Add Urine Microscopic? YES; Appearance Urine Clear (Clear); Glucose Urine UA 2+ mg/dL (Negative); Leukocyte Esterase Ur Trace LEU/UL (Negative); Need Manual Microscopic Reviewed; Nitrate Urine Negative (Negative); Non Pathogenic Casts 0-2; Specific Grav Ur 1.016 (1.001-1.035)
[2025-06-28 13:42] VITALS: BP 155/101; PULSE 90; RESP 16; O2SAT 100
--- NOTE | 2025-06-28 13:42 | PC.NURSE ---
PA Strueble at bedside talking with pt. and pt. visitor.
[2025-06-28] MEDS: HYDROcodone/acetaminophen (*CRX) 5-325 MG TABLET 1 TAB PO (14:11)
--- NOTE | 2025-06-28 14:22 | PC.NURSE ---
Pt. dry heaving after administering norco. CAKE ICER Fabiano notified and medication order placed.
[2025-06-28] MEDS: METOCLOPRAMIDE HCL INJ 10 MG/2 ML VIAL IV PUSH (14:30)
== END 2025-06-28 15:39 | disposition home or self-care (01) ==
PROVIDERS: Emergency Provider Registered Nurse; PCP Family Medicine
DX: K57.32 Diverticulitis of large intestine without perforation or abscess without bleeding (principal); E11.22 Type 2 diabetes mellitus with diabetic chronic kidney disease; I12.0 Hypertensive chronic kidney disease with stage 5 chronic kidney disease or end stage renal disease; N18.6 End stage renal disease; Z89.511 Acquired absence of right leg below knee; Z99.2 Dependence on renal dialysis
CPT/HCPCS: 36415; 71045; 74176; 80053; 81001; 83605; 83690; 84484; 85025; 85610; 85730; 86140; 93005; 96365; 96368; 96375; 96376; 99284; A9270; J0696; J1171; J1200; J1836; J2405; J2765; J7030

== ENCOUNTER 2025-06-29 08:31 | Inpatient (IN) | payer MEDICARE, MEDICAID, SELFPAY ==
[2025-06-29] VITALS (32 sets, daily range): BP systolic 153–184; BP diastolic 58–78; PULSE 76–88; RESP 13–22; TEMP 36.3–37.1; O2SAT 85–100; BMI 27.6
--- NOTE | ~2025-06-29 | XR_ITS ---
CHEST RADIOGRAPH CLINICAL HISTORY: cardiac arrest . COMPARISON: 06/29/2025 TECHNIQUE: Single portable view of the chest. FINDINGS Endotracheal tube is identified with its tip projecting approximately 4.5cm above the base of the car paola. Abnormal splaying of the right and left mainstem bronchus, possibly secondary to positioning (patient 's right arm is elevated comparison to the left). This is an interval change from previous examination approximately 24 hours earlier. The remainder of the cardiomediastinal silhouette is enlarged. Significant patient rotation is also noted (towards the patient's right) demonstrating an abnormally widened superior mediastinum. Of note, the superior mediastinum is significantly widened so that the aortic knob appears to the right of midline. Multiple calcified lymph nodes within the mediastinum. Interval development of large bilateral pleural effusions, layering posteriorly, giving the impressio n of increased opacification of the bilateral lung zendejas. Increased interstitial markings are identified bilaterally, findings suggesting mild pulmonary vascul ar congestion. The remainder of the lungs are clear. Redemonstration of a left subclavian vein vascular stent. IMPRESSION: Endotracheal tube in good position. Abnormal appearance of the right and left mainstem bronchus, likely secondary to significant patient rotation towards the right side in addition to the right upper extremity elevated comparison to the l eft. This also alters the appearance of the superior mediastinum, as detailed above. Large bilateral pleural effusions with pulmonary vascular congestion, as detailed above. Reviewed, dictated and finalized at location A. IMPRESSION: Endotracheal tube in good position. Abnormal appearance of the right and left mainstem bronchus, likely secondary t o significant patient rotation towards the right side in addition to the right upper extremity elevated comparison to the left. This also alters the appearance of the superior mediastinum, as detailed above. Large bilateral pleural effusions with pulmonary vascular congestion, as detail ed above.
--- NOTE | ~2025-06-29 | CT_ITS ---
EXAMINATION: CT diagnostic chest wo con DATE: 07/04/2025 09:42 INDICATION: Pneumonia. Effusions TECHNIQUE: Computed tomography (CT) of the chest was performed without intravenous contrast. The dose-length product was 340.19 mGy-cm. COMPARISON: CTA chest 06/30/2025 FINDINGS: Endotracheal tube is present, its tip is 2.5 cm above the socorro. Nasogastric tube is present, its tip is in the distal stomach. No enlarged mediastinal or hilar lymph nodes. Heart is mildly enlarged. There are coronary artery calcifications. Small amount of hyperdense material within the gallbladder which may represent hyperdense sludge or tiny gallstones. Calcified granulomas are noted in the spleen. Thoracic aorta is not aneurysmal. Small to moderate-sized bilateral pleural effusions with adjacent moderate-sized consolidations with air bronchograms in the lower lobes, worse on the right. Calcified right hilar lymph nodes, unchanged. There are a few small groundglass opacities in the mid and lower lungs. Redemonstration of the left-sided rib fractures. Overall, osseous structures are similar to the study from 06/30/2025 Interval development of a large amount of subcutaneous air along the left anterior chest wall. Interval development of a tiny left anteromedial pneumothorax. IMPRESSION: 1. Interval development of a tiny left anteromedial pneumothorax. 2. Interval development of a large amount of subcutaneous air along the left anterior chest wall. 3. Small to moderate-sized bilateral pleural effusions with adjacent moderate- sized consolidations with air bronchograms in the lower lobes, worse on the right. The findings have slightly worsened as compared to the chest CT study from 06/30/2025 Recommend follow-up to resolution. 4. There are a few small groundglass opacities in the mid and lower lungs. The findings were relayed to the patient's nurse in the ICU, Adi Brewer, on 07/04/2025 at 11:[address] Ng Reviewed, dictated and finalized at location A. IMPRESSION: 1. Interval development of a tiny left anteromedial pneumothorax. 2. Interval development of a large amount of subcutaneous air along the left an terior chest wall. 3. Small to moderate-sized bilateral pleural effusions with adjacent moderate-s ized consolidations with air bronchograms in the lower lobes, worse on the righ t. The findings have slightly worsened as compared to the chest CT study from Recommend follow-up to resolution. 4. There are a few small groundglass opacities in the mid and lower lungs. The findings were relayed to the patient's nurse in the ICU, Adi Brewer, on 07/04/2025 at 11:[address] Ng
--- NOTE | ~2025-06-29 | CT_ITS ---
EXAMINATION: CTA chest DATE: 06/30/2025 22:43 CDT INDICATION: Widened mediastinum on supine chest x-ray following cardiac arrest TECHNIQUE: Computed tomographic angiography (CTA) of the chest was performed with 100 mL Omnipaque-35 0 intravenous contrast. The dose-length product was 861.44 mGy-cm. Maximum intensity projection 3D-re constructions of the aorta and other arteries were constructed by the technologist on a separate work station. COMPARISON: Reference is made to a plain film evaluation of the chest performed approximately 90 chelly narendra earlier FINDINGS/OBSERVATIONS: PULMONARY ARTERIES: No filling defect is identified within the main or proximal pulmonary artery. The main pulmonary artery is not enlarged. THORACIC AORTA: No aneurysmal dilatation or dissection is present. The great vessels are intact LUNGS: Large bilateral pleural effusions, right greater than left with adjacent compressive atelectas is bilaterally. MEDIASTINUM: Calcified lymph nodes within the mediastinum. No morphologically suspicious or pathologi mariana enlarged lymph nodes are identified within the mediastinum or bilateral axilla. BONES OF THE CHEST: Acute minimally displaced fractures of the anterior margins of the left third and fifth ribs, likely from recent CPR. There are bridging endplate osteophytes at multiple levels in the thoracic spine, consistent with dif fuse idiopathic skeletal hyperostosis (DISH). No lytic or blastic lesions. HEART: The heart is enlarged, without pericardial effusion. IMPRESSION: No pulmonary embolus. No thoracic aortic dissection or dilatation. Large bilateral pleural effusions, right greater than left Reviewed, dictated and finalized at location A.
--- NOTE | ~2025-06-29 | XR_ITS ---
Portable chest x-ray Comparison: 07/01/2025 Clinical History: Respiratory failure Findings: Endotracheal tube and NG tube are in place. Small to moderate right pleural effusion prese nt. There is mild pulmonary edema and probable left basilar atelectatic change. Cardiomediastinal si lhouette is stable. Bones appear intact. There is extensive left-sided subcutaneous emphysema. Impression: Suvbh-rj-wowekory pleural effusion with moderate pulmonary edema pattern and probable left basilar at electasis. Support tubes, as above. Extensive left-sided subcutaneous emphysema. Reviewed, dictated and finalized at location . Impression: Taldv-uu-gmeiusvg pleural effusion with moderate pulmonary edema pattern and pr obable left basilar atelectasis. Support tubes, as above. Extensive left-sided subcutaneous emphysema.
--- NOTE | ~2025-06-29 | CT_ITS ---
EXAMINATION: CT brain wo con DATE: 07/04/2025 09:41 INDICATION: Altered mental status TECHNIQUE: Computed tomography (CT) of the head was performed without intravenous contrast. The dose-length product was 605.33 mGy-cm. COMPARISON: CT head 07/01/2025, 04/28/2025; brain MRI 05/05/2025 and 02/10/2024 FINDINGS: No acute intrarenal hemorrhage. No mass effect. No midline shift. No hydrocephalus. No skull fracture. Minimal opacification of the paranasal sinuses. Partial opacification of the right mastoid air cells. Grossly stable 2.1 x 1.0 cm left parafalcine partially ossified probable meningioma. IMPRESSION: 1. No acute intracranial hemorrhage. No mass effect. 2. Grossly stable 2.1 x 1.0 cm left parafalcine partially ossified probable meningioma. Reviewed, dictated and finalized at location A. IMPRESSION: 1. No acute intracranial hemorrhage. No mass effect. 2. Grossly stable 2.1 x 1.0 cm left parafalcine partially ossified probable men ingioma.
--- NOTE | ~2025-06-29 | CT_ITS ---
EXAMINATION: CT abdomen pelvis wo con DATE: 06/30/2025 11:08 INDICATION: Rule out abscess or perforation. TECHNIQUE: Computed tomography (CT) of the abdomen and pelvis was performed without intravenous contr ast. The dose-length product was 700.70 mGy-cm. COMPARISON: 06/28/2025 FINDINGS: New small right-sided pleural effusion. New tiny left-sided pleural effusion. There are 2 new moderate-sized bandlike opacities in the right lower lung and a new small bandlike op acity in the left lower lung. The liver, adrenal glands and pancreas are unremarkable. Gallbladder is unremarkable. Spleen is gross ly stable. Redemonstration of the mild left-sided hydronephrosis and mild left-sided hydroureter. No CT evidence for renal, ureteral or bladder calculi. Abdominal aorta is not enlarged. No right-sided hydronephrosis. Slight improvement in the concentric thickening of the ramey of the bladder. Correlate clinically. No free intraperineal air identified. Appendix is not visualized. Small amount of new nonspecific amount of fat stranding and fluid in the abdomen and pelvis. Redemonstration of the bilateral inguinal hernias. Osseous structures are grossly unchanged. IMPRESSION: 1. No abscess identified. No free intraperitoneal air identified. 2. Small amount of new nonspecific amount of fat stranding and fluid in the abdomen and pelvis. 3. New small right-sided pleural effusion. 4. New tiny left-sided pleural effusion. 5.There are two new moderate-sized bandlike opacities in the right lower lung and a new small bandlik e opacity in the left lower lung. Differential includes atelectasis or pneumonia. Correlate clinicall y. Recommend follow-up to resolution. 6. Redemonstration of the mild left-sided hydronephrosis and mild left-sided hydroureter. No CT evide nce for renal, ureteral or bladder calculi. 7. Slight improvement in the concentric thickening of the ramey of the bladder. Correlate clinically. 8. Redemonstration of the short segment focal thickening of the ramey of the distal descending colon and proximal sigmoid colon. Differential includes incomplete bowel wall distention, diverticulitis or mass. Reviewed, dictated and finalized at location A. IMPRESSION: 1. No abscess identified. No free intraperitoneal air identified. 2. Small amount of new nonspecific amount of fat stranding and fluid in the abd omen and pelvis. 3. New small right-sided pleural effusion. 4. New tiny left-sided pleural effusion. 5.There are two new moderate-sized bandlike opacities in the right lower lung a nd a new small bandlike opacity in the left lower lung. Differential includes a telectasis or pneumonia. Correlate clinically. Recommend follow-up to resolutio n. 6. Redemonstration of the mild left-sided hydronephrosis and mild left-sided hy droureter. No CT evidence for renal, ureteral or bladder calculi. 7. Slight improvement in the concentric thickening of the ramey of the bladder. Correlate clinically. 8. Redemonstration of the short segment focal thickening of the ramey of the di stal descending colon and proximal sigmoid colon. Differential includes incompl ete bowel wall distention, diverticulitis or mass.
--- NOTE | ~2025-06-29 | XR_ITS ---
EXAMINATION: XR abdomen gastric tube insert DATE: 07/01/2025 06:41 INDICATION: Orogastric tube placement TECHNIQUE: A supine view of the abdomen and lower chest was obtained for evaluation of feeding tube placement. COMPARISON: None. FINDINGS: Orogastric tube tip in proximal side port in the body the stomach. Moderate amount of gas and stool w ithin the visualized colon. No dilated loops of gas-filled bowel in the upper abdomen to suggest obst ruction. Opacities in the bilateral lower lung zones. Small right pleural effusion with blunting at t he costophrenic angle. IMPRESSION: 1. Orogastric tube in stomach. 2. Small right pleural effusion with atelectasis and/or pneumonia in the bilateral lower lung zones. Reviewed, dictated and finalized at location A. IMPRESSION: 1. Orogastric tube in stomach. 2. Small right pleural effusion with atelectasis and/or pneumonia in the bilate ral lower lung zones.
--- NOTE | ~2025-06-29 | CT_ITS ---
EXAMINATION: CT brain wo con DATE: 07/01/2025 00:27 INDICATION: Seizure like activity TECHNIQUE: Computed tomography (CT) of the head was performed without intravenous contrast. Sagittal and coronal reconstructions were performed. The mA was adjusted according to patient size. Iterative reconstruction technique was employed. The dose-length product was 681.00 mGy-cm. COMPARISON: head CT dated 04/28/2025 and brain MR dated 04/30/2025 and 02/10/2024 FINDINGS: There is increased density in the both pleural likely reflecting residual contrast from a recent prio r contrast-enhanced chest CT. Again seen is a chronic 2.1 x 1.9 x 1.1 cm left parafalcine enhancing m ass with internal heterotopic ossification most consistent with a meningioma. No acute intracranial h emorrhage, acute infarction or abnormal extra axial fluid collection. Ventricles are normal and symme tric. Changes of bilateral intraocular lens replacement. Status post right mastoidectomy. Mild mucosa l thickening the right ethmoid and sphenoid sinuses. IMPRESSION: 1. 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 No acute intracranial process. Reviewed, dictated and finalized at location A.
--- NOTE | ~2025-06-29 | XR_ITS ---
CHEST RADIOGRAPH CLINICAL HISTORY: re-evaluate mediastinum . COMPARISON: 06/30/2025 TECHNIQUE: Single portable view of the chest. FINDINGS Endotracheal tube is identified with its tip projecting approximately 3.5 cm above the base of the ca tomas. Redemonstration of calcified lymph nodes within the mediastinum. The remainder of the cardiomediastinal silhouette is otherwise unremarkable. Large right and small left-sided pleural effusions, consistent with recent CTA of the chest performed 30 minutes earlier. Increased interstitial markings are identified bilaterally, findings suggesting mild pulmonary vascul ar congestion. The lungs are otherwise clear. IMPRESSION: Mild pulmonary vascular congestion with a large right and small left-sided pleural effusions. Endotracheal tube in good radiographic position. Reviewed, dictated and finalized at location A. IMPRESSION: Mild pulmonary vascular congestion with a large right and small left-sided pleu ral effusions. Endotracheal tube in good radiographic position.
--- NOTE | ~2025-06-29 | XR_ITS ---
Portable chest x-ray Comparison: 07/03/2025 Clinical History: Respiratory failure Findings: Endotracheal tube and NG tube are in satisfactory positions. Suben-iv-ttsjinar bilateral pleural effusions are present with bibasilar pulmonary edema/atelectasis. Cardiomediastinal silhouette is stable. Bones and soft tissues are unremarkable. Impression: Tznvf-nb-pgecypst bilateral pleural effusions with bibasilar pulmonary edema/atelectasis. Support tubes, as above. Reviewed, dictated and finalized at location M. Impression: Xujgh-mh-lxotrzke bilateral pleural effusions with bibasilar pulmonary edema/at electasis. Support tubes, as above.
--- NOTE | ~2025-06-29 | XR_ITS ---
EXAMINATION: XR chest 1V portable DATE: 07/03/2025 05:42 INDICATION: Cardiac arrest. Acute respiratory failure. TECHNIQUE: frontal view of the chest was obtained. COMPARISON: Chest radiograph dated 07/02/2025 FINDINGS: Endotracheal tube tip 4.8 cm above the socorro. Nasogastric tube extends below the left hemidiaphragm with distal tip collimated off the study. No improvement in the gradient of basilar predominant hazy opacities in the right mid to lower lung c onsistent with decrease in now small right pleural effusion with associated basilar atelectasis and/o r pneumonia. There is also been some improvement in opacities in the left lower lung zone with simila r differential including likely very small left pleural effusion. There is prominent left pectoral ramirez bcutaneous emphysema. Likely tiny left apical pneumothorax. The cardiomediastinal silhouette is laura l. Outside right hilar lymph nodes consistent with old granulomatous disease. IMPRESSION: 1. Likely tiny left apical pneumothorax and left chest wall subcutaneous gas. Potential sequela of re ported recent cardiac arrest. Correlate for associated CPR with chest compressions which could accoun t for the pneumothorax. Findings were discussed with Araseli Payan, the nurse caring for t he patient, at 8:40 AM. 2. Decreasing now small to moderate right and very small left pleural effusions with associated bibas ilar atelectasis and/or pneumonia. Reviewed, dictated and finalized at location A. IMPRESSION: 1. Likely tiny left apical pneumothorax and left chest wall subcutaneous gas. P otential sequela of reported recent cardiac arrest. Correlate for associated CP R with chest compressions which could account for the pneumothorax. Findings we re discussed with Araseli Payan, the nurse caring for the patient, a t 8:40 AM. 2. Decreasing now small to moderate right and very small left pleural effusions with associated bibasilar atelectasis and/or pneumonia.
--- NOTE | ~2025-06-29 | XR_ITS ---
EXAMINATION: XR chest 1V portable DATE: 06/29/2025 12:11 INDICATION: Shortness of breath TECHNIQUE: frontal view of the chest was obtained. COMPARISON: Chest radiograph dated 06/28/2025 FINDINGS: No airspace opacity extending laterally from the right hilum which could represent atelectasis or pne umonia. No other new airspace opacities, pulmonary edema, pleural effusion or pneumothorax. Arch size is normal. Calcite right hilar lymph nodes consistent with old granulomatous disease. IMPRESSION: 1. New opacities in the right midlung zone which could represent atelectasis or pneumonia. Reviewed, dictated and finalized at location A.
--- NOTE | ~2025-06-29 | XR_ITS ---
EXAMINATION: XR chest 1V portable DATE: 07/01/2025 06:16 INDICATION: Intubation TECHNIQUE: frontal view of the chest was obtained. COMPARISON: Chest radiograph dated 06/30/25 FINDINGS: Endotracheal tube tip 3.7 cm above the socorro. Diffuse basilar predominant hazy airspace opacities in the right lung with blunting at the right ostiomeatal consistent with small pleural effusion. There are additional airspace opacities in bilateral lower lung zones which could represent atelectasis or pneumonia. Calcified right hilar lymph nodes consistent with old granulomatous disease. Heart size is normal. IMPRESSION: 1. Endotracheal tube tip 3.7 cm above the socorro. 2. Small right pleural effusion with opacities in bilateral lower lung zones which could represent at electasis or pneumonia. Reviewed, dictated and finalized at location A. IMPRESSION: 1. Endotracheal tube tip 3.7 cm above the socorro. 2. Small right pleural effusion with opacities in bilateral lower lung zones wh ich could represent atelectasis or pneumonia.
--- NOTE | ~2025-06-29 | US_ITS ---
EXAMINATION: US abdomen limited DATE: 07/01/2025 13:27 INDICATION: Transaminitis TECHNIQUE: Multiple grayscale and Doppler ultrasound images of the abdomen were obtained. COMPARISON: None FINDINGS: The pancreatic head and body are normal in appearance. The pancreatic tail is not visualized. The vi sualized cephalad to mid aorta and inferior vena cava are normal. Liver has normal echogenicity and c ontour, with a smooth surface. No liver lesion identified. No intrahepatic biliary duct dilation susp ected. Portal venous flow was seen in the hepatopetal, normal direction and has normal Doppler wavefo rm. The gallbladder is normal in appearance. There is no cholelithiasis. The common bile duct measur es 7 mm, which is at the upper limits of normal for age. Sonographic Martin sign was reported as nega tive by the fire lieutenant.Right kidney measures 8.7 x 5.5 x 5.0 cm with normal contour and echogenicity and no hydronephrosis. Right pleural effusion. IMPRESSION: 1. Common bile duct diameter of 7 mm at the upper limits of normal for age with no evident cholelithi asis, gallbladder dilation or intrahepatic biliary ductal dilation. 2. Right pleural effusion. Reviewed, dictated and finalized at location A. IMPRESSION: 1. Common bile duct diameter of 7 mm at the upper limits of normal for age with no evident cholelithiasis, gallbladder dilation or intrahepatic biliary ductal dilation. 2. Right pleural effusion.
--- OUTSIDE RECORDS SUMMARY | 2025-06-29 08:38 | XMS_ITS | Encounter Summary ---
Author Organization [facility] Address [address] [place] [address] Care Team Providers Care Paunch Trimmer Name Role Phone Adryan Galarza MD Primary Care Provider [phone] Encounter Details Date Type Department Care Team (Late st Contact Info) Description 02/18/2024 Hospital Follow-up Call [facility] Unit [address] [place] [address] Mica Null RN Social History Tobacco Use Types Packs/Day Years Used Date Smoking Tobacco: Never Smokeless Tobacco: Never Alcohol Use Standard Drinks/Week Comments Not Currently 0 (1 standard drink = 0.6 oz pur e alcohol) [facility] Utilities Answer Date Recorded In the past 12 months has [employer], gas, oil, or water [employer] threatened to shut off services in your [...] week 02/11/2024 How often do you attend pentecostal or sikhism serv ices? Patient declined 02/11/2024 Do you belong to any clubs o r organizations such as pentecostal groups, unions, fraternal or athletic groups, or [...] place to sleep or slept in a senior care (including now)? 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 [address] [place], [place] [id number] documented as of this encounter Goals Goal Patient Goal Type Associated Problems Recent Progress Patient-Stated? Author Safety Patient/family will have appropriate support at home upon discharge Lifestyle Zenaida Berrios RN documented as of this encounter Visit Diagnoses Not on filedocumented in this encounter Additional Health Concerns Assessment Noted Time PHQ-9 Depression Total Score: 0 12/02/19 23 10:36 AM FISCAL ANALYST documented as of this encounter Care Teams Paunch Trimmer Relationship Specialty Start Date End Date Adryan Galarza MD PCP - General FAMILY PRACTICE 12/02/21 documented as of this encounter
--- OUTSIDE RECORDS SUMMARY | 2025-06-29 08:38 | XMS_ITS | Encounter Summary ---
Author Organization [facility] Address [facility] [place] [address] Care Team Providers Care Livestock Farmers Name Role Phone Adryan Galarza MD Primary Care Provider [phone] Encounter Details Date Type Department Care Team (Late st Contact Info) Description 04/23/2019 Abstract [facility] [address] [address] , Generic ConversionMD Social History Tobacco Use Types Packs/Day Years Used Date Smoking Tobacco: Never Assessed Sex and Gender Information Value Date Recorded Sex Assigned at Not on file Legal 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 [address] [place] [address] Jose Antonio Grajeda MD [facility]. [address] [place] [address] documented as of this encounter Visit Diagnoses Not on filedocumented in this encounter Care Teams Livestock Farmers Relationship Specialty Start Date End Date Adryan Galarza MD PCP - General FAMILY PRACTICE 12/02/21 documented as of this encounter
--- OUTSIDE RECORDS SUMMARY | 2025-06-29 08:38 | XMS_ITS | Clinical Summary ---
Author Organization [place] [id number] [facility] Address [address] [place] [address] Care Team Providers Care Forklift Picker Name Role Phone No, Physician Primary Care Provider [phone] Allergies No known active allergies Medications blood [...] (12/20/2020): Added automatically from request for surgery [id number] Non-pressure chronic ulcer o f other part of right foot with other specified severity 12/20/2020 Overview (12/20/2020): Added automatically from request for surgery [id number] Type 2 diabetes mellitus with foot ulcer (CODE) 12/20/2020 Overview (12/20/2020): Added automatically from request for surgery [id number] Diabetic polyneuropathy asso ciated with type 2 diabetes mellitus 12/20/2020 Overview (12/20/2020): Added automatically from request for surgery [id number] Gangrene of foot 12/20/2020 Overview (12/26/2020): Added automatically from request for surgery [id number] Assessment & Plan (01/16/2021 8:31 AM SCOUT EXECUTIVE): - Pt has completed 2 weeks of [...] on file Legal Sex Male 5:28 PM SCOUT EXECUTIVE Gender Identity Not on file Sexual Orientation Not on file Obstetrics History Last Filed Vital Signs Vital Sign Reading Time Taken Comments Blood Pressure 145/73 04/07/2023 2:54 PM CDT Pulse 80 04/07/2023 2:54 PM CDT Temperature 36.7 C (98.1 F) 03/04/2022 3:14 PM CDT Respiratory Rate 18 04/07/2023 2:54 PM CDT Oxygen Saturation 97% 01/09/2021 6:05 AM SCOUT EXECUTIVE Inhaled Oxygen Concentration - - Weight 70.5 kg (155 lb 6.4 oz) 04/07/2023 2:54 P M CDT Height 170.2 cm (5' 7) 01/09/2023 2:26 PM SCOUT EXECUTIVE Body Mass Index 24.34 01/09/2023 2:26 PM SCOUT EXECUTIVE Plan of Treatment Health Maintenance Due Date [...] (#1) 2025 Medical Devices Implanted Type Area Director Machine Device Identifier Shelf Expiration Date Model / Serial / Lot Hardware Left: Wrist Procedures Procedure Name Priority Date/Time Associated Diagnosis Comments HEMOGLOBIN A1C STAT 12/20/2020 2:29 PM SCOUT EXECUTIVE LIPID PANEL STAT 12/20/2020 2:[address] ABDOMEN PELVIS WO CONTRAST Routine 08/11/2013 12:00 AM CDT from Last 3 Months or Most Recently Relevant to Health Maintenance Results * (ABNORMAL) Hemoglobin A1c (12/20/2020 2:29 PM SCOUT EXECUTIVE) Hgb A1C 11.9(H) 4.0 - 5.6 % [facility] Estimated Average Glucose 295 mg/dL [facility] Comment: The ADA recommends reporting an estimated Average Glucose (eAG) with all Hemoglobin A1c results using the equation derived from a study of 507 normal and diabetic adults. Minority populations were underrepresented and children were not included. (Diabetes Care 31:2358-0320, 2008). The eAG is not equivalent to a fasting glucose. Blood specimen (specimen) 12/20/2020 2:29 PM SCOUT EXECUTIVE 12/20/2020 2:52 PM SCOUT EXECUTIVE us Gabino Rodriguez MD LAB BLOOD ORDERABLES Final Re sult [facility] One [facility] Department [place] [address] * (ABNORMAL) Lipid panel (12/20/2020 2:29 PM SCOUT EXECUTIVE) Cholesterol 73 30 - 199 mg/dL [facility] Comment: Interpretive Data Ages < [...] revised on 2018. Triglycerides 72 <=149 mg/dL [facility] Comment: Interpretive Data Ages < [...] revised on 2018. HDL 25(L) >=40 mg/dL [facility] Comment: Interpretive Data Ages < [...] on 2018. LDL, calculated 34 <=129 mg/dL [facility] Comment: Interpretive Data Ages < [...] revised on 2018. Non-HDL Cholesterol 48 mg/dL [facility] Comment: Interpretive Data Ages < [...] last revised on 2018. Chol/HDL ratio 3 [facility] Blood specimen (specimen) 12/20/2020 2:29 PM SCOUT EXECUTIVE 12/20/2020 2:49 PM SCOUT EXECUTIVE us Gabino Rodriguez MD LAB BLOOD ORDERABLES Edited R esult - Final [facility] Department [place] [address] * CT Abdomen Pelvis WO Contrast (08/11/2013 [...] Cody M.D. MJ:yoshi 08:01 PM 08:01 PM [facility] [EOD] Narrative 08/11/2013 8:05 PM [...] Mild thickening of the rectum unchanged from [id number] exam. This may reflect nondistention with contrast [...] Cody M.D. MJ:yoshi 08:01 PM 08:01 PM [facility] [EOD] us Historical Provider MD PALM CT PROCEDURES Final R esult from Last 3 Months or Most Recently Relevant to Health Maintenance Insurance [facility] MEDICARE [facility] MEDICARE [place] CHO[place] MEDIC[place] CHO[place]F [place] Advance Directives For more information, please contact: [phone] Documents on File Type Date Recorded Patient Scheduling Analyst Expl anation ADVANCE DIRECTIVE 02/17/2021 8:14 PM Power of Weight Caller-Medical ADVANCE DIRECTIVE 01/08/2021 1:22 AM Power of Weight Caller-Medical ADVANCE DIRECTIVE 01/08/2021 1:21 AM Power of Weight Caller-Financial/Medical * Full Code (Latest Code Status on File) Date Activated Date Inactivated Comments 12/20/2020 11:43 PM 01/09/2021 3:30 PM Care Teams Forklift Picker Relationship Specialty Start Date End Date No, Physician PCP - General 01/09/21
--- OUTSIDE RECORDS SUMMARY | 2025-06-29 08:38 | XMS_ITS | Clinical Summary ---
Author Organization [facility] Address [address] [place] [address] Care Team Providers Care Relocation Specialist Name Role Phone Adryan Galarza MD Primary Care Provider [phone] Allergies No known active allergies Medications Blood [...] stage 5, GFR less than 15 ml/min ([facility]/HCC HHS/HCC) Take 1 tablet (81 mg total) by mouth daily. 4 Active epoetin charlie-epbx (RETACRIT) 53456 Units/mL injectionIndic ations:Anemia in stage 4 chronic [...] kidney disease) stage 4, GFR 15-29 ml/min ([facility]) 12/02/2021 Primary hypertension 12/02/2021 Type 2 diabetes mellitus wit h diabetic nephropathy, with long-term current use of insulin ([facility]) 12/02/2021 Family History Medical History Relation Comments Diabetes Maternal Grandmother Cancer Mother Diabetes Paternal Grandmother Relation Status Comments Maternal Grandmother Mother Paternal Grandmother Social History Tobacco Use Types Packs/Day Years Used Date Smoking Tobacco: Never Smokeless Tobacco: Never Tobacco Cessation:Counseling Given: No Alcohol Use Standard Drinks/Week Comments Not Currently 0 (1 standard drink = 0.6 oz pur e alcohol) [facility] [employer] Answer Date Recorded In the past 12 months has e [place], gas, oil, or water [place] threatened to shut off services in your [...] week 02/11/2024 How often do you attend temple or yazdanism serv ices? Patient declined 02/11/2024 Do you belong to any clubs o r organizations such as temple groups, unions, fraternal or athletic groups, or [...] Recorded Patient Health Questionnaire-2 Score 0 02/02/2024 [facility] - Occupational Stress Questionnaire Answer Date Recorded [...] place to sleep or slept in a mcfp (including now)? No 02/11/2024 Sex and Gender Information Value Date Recorded Sex Assigned at Not on file Legal Sex Male 10:46 PM [employer] Gender Identity Not on file Sexual Orientation [...] CDT Office Visit [facility], [address] [place], [place] [id number] Jose Antonio Grajeda MD [facility]. [address], [place] [id number] Health Maintenance Due Date Last Done Comments [...] COVID-19 Vaccine ( season) 2024 PHQ-2 (Physician [place]) 11/16/2024 02/02/2024 Meningococcal B Vaccine Aged Out [...] Comments HEMOGLOBIN, GLYCOSYLATED Routine 11/23/2023 8:59 AM [employer]IDENT [employer] from Last 3 Months or Most Recently Relevant to Health Maintenance Results * HEMOGLOBIN, GLYCOSYLATED (11/23/2023 8:59 AM [employer]) HGB A1C 5.5 <5.7 % of total Hgb [employer] [facility] Comment: For the purpose of screening for the presence of diabetes: <5.7% Consistent with the absence of diabetes 5.7-6.4% Consistent with increased risk for diabetes (prediabetes) > or =6.5% Consistent with diabetes This assay result is consistent with a decreased risk of diabetes. Currently, no consensus exists regarding use of hemoglobin A1c for diagnosis of diabetes in children. According to [place] Diabetes Association (ADA) guidelines, hemoglobin A1c <7.0% represents optimal control in non- diabetic patients. Different metrics may apply to specific patient populations. Standards of Medical Care in Diabetes(ADA). HbA1c performed on [employer]. 11/23/2023 8:59 AM [employer]IDENT [employer] 11/23/2023 8:59 AM [employer]IDENT [employer] Narrative Resulting Agency Comment Performing Organization Information: Site ID: BI Name: [facility] Address: [address] [id number] Director: Azeb Ortiz MD Radhames Cardenas MD LABORATORY Final Result [facility] [employer] [facility] [address] [place] [address], from Last 3 Months or Most Recently Relevant to Health Maintenance Insurance MEDICAID MEDICARE MEDICARE MEDICAID Advance Directives * Full Code (Latest Code Status on File) Date Activated Date Inactivated Comments 02/11/2024 4:45 AM 02/16/2024 3:45 PM * Full Code Date Activated Date Inactivated Comments 10/17/2022 4:39 PM 10/22/2022 6:32 PM Care Teams Relocation Specialist Relationship Specialty Start Date End Date Adryan Galarza MD PCP - General FAMILY PRACTICE 12/02/21
--- NOTE | 2025-06-29 08:59 | ECG_ITS ---
Test Date: 2025-06-29 09:32:16 Measurements Intervals [place] Rate: 79 P: 66 [place]: 194 QRS: -36 QRSD: 115 T: 40 QT: 448 QTc: 514 Interpretive Statements SINUS RHYTHM LEFT AXIS DEVIATION INTRAVENTRICULAR CONDUCTION DELAY BORDERLINE ECG Compared to ECG 06/28/2025 09:43:06 NO SIGNIFICANT CHANGE Electronically Signed On 06-29-2025 09:34:28 CDT by Nilson Jerez D.O.
--- NOTE | 2025-06-29 08:59 | ED_ITS ---
HPI - Abdominal Pain General Chief Complaint: Abdominal Pain Stated Complaint: vomiting, abd pain Time Seen by Provider: 06/29/25 08:56 History of Present Illness HPI narrative: Patient is a 70-year-old male who presents to the ER with left lower quadrant abdominal pain that radiates to his whole abdomen. He was seen in this ER yesterday for the same symptoms. Pt was sent home with oral antibiotics and pain medication. He has been unable to keep any of his antibiotics or pain medication down without vomiting. He reports the pain started approximately 3-4 days ago. Patient reports the pain got significantly worse yesterday morning. He reports he does peritoneal dialysis 4 days a week and his home health nurse was unable to perform it this morning d/t pain. Patient also endorses a history of diabetes, high blood pressure and right lower leg BKA. He denies any back pain, shortness of breath, or recent fevers. Related Data Home Medications ?Medication ?Instructions ?Recorded ?Confirmed ?Last Taken ?Type ferrous sulfate 324 mg (65 mg 324 mg PO DAILY 12/16/23 04/27/25 04/27/25 History iron) tablet,delayed release tamsulosin 0.4 mg capsule 0.4 mg PO DAILY 12/16/23 04/27/25 04/27/25 History amlodipine 5 mg tablet 5 mg PO DAILY 02/10/24 04/27/25 04/27/25 History Allergies Allergy/AdvReac Type Severity Reaction Status Date / Time No Known Allergies Allergy Verified 06/28/25 09:31 Review of Systems 2 Review of Systems: All systems reviewed & are unremarkable except as noted in HPI and below PMFSH Past Medical History Medical History PVD (peripheral vascular disease) Anemia End stage renal disease Urinary retention Overweight (BMI 25.0-29.9) Diarrhea HTN (hypertension) IBS (irritable bowel syndrome) Diabetes Surgical History Surgical History Status post below knee amputation of right lower extremity S/P dialysis catheter insertion S/P arteriovenous (AV) fistula creation Family History Family History Father Congestive heart failure Mother Cancer Social History Social History Smoking status: Never smoker Second hand tobacco smoke exposure: Yes Alcohol intake: former Drinks per week: 0 Substance use: never Substance use type: does not use Do You Feel Safe in your Home?: Yes Lack of Transportation: No Lack of Food: Never True Current Housing: I Have Housing Concerned About Future Housing: No Difficulty Paying Gas/Electric Bills: No Difficulty Paying for Meds: No Currently Unemployed: No Education: High School Diploma/GED Difficulty w/ Childcare or Family Care: No Living arrangements: with family Spiritual care concerns: No Exam 2 Narrative: GENERAL: Ill appearing, well-nourished, non-toxic, in acute distress d/t pain. HEAD: Normocephalic, atraumatic. NECK: Supple. No adenopathy, no masses. RESPIRATORY: Airway patent, respirations nonlabored. Clear to auscultation bilaterally, no rales, rhonchi, wheezing. CARDIOVASCULAR: Regular rate and rhythm without murmurs, rubs, or gallops. Peripheral pulses 2+ and equal bilaterally. ABDOMINAL: Soft, LLQ tenderness with generalized abdominal pain, + distended, no hepatosplenomegaly. Normoactive BS. MUSCULOSKELETAL: Moves all extremities. Strength/ROM intact without gross deformities. SKIN: Warm, dry, normal color. No rashes. NEURO: A&O X3. Speech clear. Cranial nerves II-XII intact. No ataxic movements. PSYCHIATRIC: Appropriate mood and affect. Normal interaction. Course Vital Signs Vital signs: Vital Signs Temperature 36.6 C 06/29/25 08:49 Pulse Rate 88 06/29/25 08:49 Respiratory Rate 22 H 06/29/25 08:49 Blood Pressure 184/73 H 06/29/25 08:49 Pulse Oximetry 98 06/29/25 08:49 Oxygen Delivery Room Air 06/29/25 08:49 Temperature 36.6 C 06/29/25 08:49 Pulse Rate 80 06/29/25 10:13 Respiratory Rate 20 06/29/25 10:13 Blood Pressure 165/58 H 06/29/25 10:13 Pulse Oximetry 95 06/29/25 10:13 Oxygen Delivery Room Air 06/29/25 08:49 MDM - Abdominal Pain MDM Narrative Medical decision making narrative: Patient is a 70-year-old male who presents to the ER with left lower quadrant abdominal pain that radiates to his whole abdomen. He was seen in this ER yesterday for the same symptoms. Pt was sent home with oral antibiotics and pain medication. He has been unable to keep any of his antibiotics or pain medication down without vomiting. He reports the pain started approximately 3-4 days ago. Patient reports the pain got significantly worse yesterday morning. He reports he does peritoneal dialysis 4 days a week and his home health nurse was unable to perform it this morning d/t pain. Patient also endorses a history of diabetes, high blood pressure and right lower leg BKA. He denies any back pain, shortness of breath, or recent fevers. Labs Ordered: CBC, CMP, lactic acid, UA, lipase, (blood cultures not redrawn, as they were drawn yesterday) Imaging Ordered: CT performed yesterday Medications Ordered: 2.7 L NS IV bolus, ceftriaxone IV, Zofran 4 mg IV, Dilaudid 1 mg IV, Flagyl IV Results: Patient's CBC indicates a white blood cell count of 13.8, red blood cell count of 3.21, hemoglobin of 10.4, and hematocrit of 29.3%. His CMP indicates a sodium of 132, chloride of 96, carbon dioxide 19, anion gap of 17, BUN of 59, creatinine of 6.53, GFR of 9, glucose of 287. Diagnosis: diverticulitis, failed outpatient treatment, chronic kidney disease on peritoneal dialysis Consults: 1030- Spoke with hospitalist, Dr. Esposito, who was in agreement with plan for pt's admission. He will be admitted to the med/surg floor. 1040- Spoke with nephrology, Dr. Langston Results of imaging and lab work shared with patient and his family. It was advised patient be admitted to the hospital for further evaluation and treatment. Patient and his family verbalized understanding and are in agreement with plan. Differential Diagnosis Differential diagnosis: Likely abdominal pain, diverticulitis, gastroenteritis, pancreatitis, small bowel obstruction and other (sepsis) Lab Data Attestation: I reviewed the patient's lab results. 06/29/25 08:56 06/29/25 08:56 Labs: Lab Results 06/29/25 06/29/25 06/29/25 Range/Units 08:56 08:56 09:56 WBC 13.8 H (4.5-10.0) K/mm3 RBC 3.21 L (4.6-6.20) M/mm3 Hgb 10.4 L (14.0-18.0) g/dL Hct 29.3 L (42.0-52.0) % MCV 91.3 (80-100) fl MCH 32.4 (26-34) pg MCHC 35.5 (32-36) g/dl RDW 13.5 (11.5-14.5) % Plt Count 144 L (150-375) k/mm3 MPV 9.1 (7.4-10.4) fl Immature Gran % (Auto) 0.2 (0-0.5) % Neut % (Auto) 41.9 L (45.5-73.1) % Lymph % (Auto) 55.4 H (18.3-44.2) % [place] % (Auto) 2.4 L (2.6-8.5) % Eos % (Auto) 0.0 (0-4.4) % Baso % (Auto) 0.1 L (0.2-1.2) % Lymph # (Auto) 7.63 H (0.9-3.2) K/mm3 [place] # (Auto) 0.3 (0.1-0.6) K/mm3 Eos # (Auto) 0.0 (0-0.3) K/mm3 Baso # (Auto) 0.0 (0.0-0.1) K/mm3 Abs Immat Gran (auto) 0.03 (0.00-0.031) K/mm3 Absolute Neuts (auto) 5.8 (1.3-6.7) K/mm3 Absolute Nucleated RBC 0.000 (0.0-0.012) K/mm3 Nucleated RBC % 0.0 (0.0-0.2) % Sodium 132 L (137-145) mmol/L Potassium 3.6 (3.4-5.0) mmol/L Chloride 96 L (98-107) mmol/L Carbon Dioxide 19 L (22-30) mmol/L Anion Gap 17 H (4-12) mmol/L BUN 59 H D (9-20) mg/dL Creatinine 6.53 H (0.7-1.3) mg/dL Estim Creat Clear Calc 9 ml/min Estimated GFR 9 L (59 - ) Glucose 287 H (65-110) mg/dL Lactic Acid 1.4 (0.7-2.0) mmol/L Calcium 9.4 (8.4-10.2) mg/dL Total Bilirubin 0.3 (0.2-1.3) mg/dL AST 25 (17-59) U/L ALT 20 (6-50) U/L Alkaline Phosphatase 81 (38-126) U/L C-Reactive Protein 0.6 Cancelled (<1.0) mg/dL Total Protein 6.9 (6.3-8.2) g/dL Albumin 4.0 (3.5-5.1) g/dL Lipase 66 (23-300) U/L Discharge Plan Discharge Clinical Impression: Diverticulitis, ESRD on hemodialysis Patient Disposition: Still a Patient Condition: Stable Instructions: Antibiotic Form Patient Language: Yoruba Prescriptions: No Action tamsulosin 0.4 mg Capsule 0.4 mg PO DAILY ferrous sulfate 324 mg (65 mg iron) Tablet,Delayed Release (Dr/Ec) 324 mg PO DAILY amlodipine 5 mg tablet 5 mg PO DAILY flecainide 100 mg tablet 100 mg PO Q12H Qty: 60 5RF aspirin 325 mg Tablet,Delayed Release (Dr/Ec) 325 mg PO QAM 30 Days Qty: 30 1RF metoprolol succinate [Toprol XL] 25 mg Tablet Extended Release 24 Hr 25 mg PO QAM 30 Days Qty: 30 0RF ciprofloxacin HCl 500 mg tablet 500 mg PO Q12H Qty: 20 0RF metronidazole 500 mg tablet 500 mg PO BID Qty: 20 0RF dicyclomine 20 mg tablet 20 mg PO TID Qty: 30 0RF ondansetron 4 mg tablet,disintegrating 4 mg PO Q8H Qty: 14 0RF hydrocodone-acetaminophen 5-325 mg tablet 1 tablet PO Q6H PRN (Reason: pain) Qty: 10 0RF Follow-up/Referrals: Adryan Galarza MD [Primary Care Provider] -
[2025-06-29 09:02] LABS: Hematocrit 29.3 % (42.0-52.0); Hemoglobin 10.4 g/dL (14.0-18.0); Immature Granulocyte Percent A 0.2 % (0-0.5); Lymphocytes Absolute Auto 7.63 K/mm3 (0.9-3.2); Mean Corpuscular HGB Conc 35.5 g/dl (32-36); Mean Corpuscular Hemoglobin 32.4 pg (26-34); Mean Corpuscular Volume 91.3 fl (80-100); Nucleated Red Blood Cells Absolute Auto 0.000 K/mm3 (0.0-0.012); Nucleated Red Blood Cells Perc 0.0 % (0.0-0.2); Platelet Count Result 144 k/mm3 (150-375); Red Blood Count 3.21 M/mm3 (4.6-6.20); White Blood Count 13.8 K/mm3 (4.5-10.0)
--- OUTSIDE RECORDS SUMMARY | 2025-06-29 09:10 | XMS_ITS | Clinical Summary ---
Author Organization [place] [id number] [facility] Address [address] [place] [address] Care Team Providers Care Roofing Foreman Name Role Phone No, Physician Primary Care Provider [phone] Allergies No known active allergies Medications blood [...] (12/20/2020): Added automatically from request for surgery [id number] Non-pressure chronic ulcer o f other part of right foot with other specified severity 12/20/2020 Overview (12/20/2020): Added automatically from request for surgery [id number] Type 2 diabetes mellitus with foot ulcer (CODE) 12/20/2020 Overview (12/20/2020): Added automatically from request for surgery [id number] Diabetic polyneuropathy asso ciated with type 2 diabetes mellitus 12/20/2020 Overview (12/20/2020): Added automatically from request for surgery [id number] Gangrene of foot 12/20/2020 Overview (12/26/2020): Added automatically from request for surgery [id number] Assessment & Plan (01/16/2021 8:31 AM TARPER): - Pt has completed 2 weeks of [...] on file Legal Sex Male 5:28 PM TARPER Gender Identity Not on file Sexual Orientation Not on file Obstetrics History Last Filed Vital Signs Vital Sign Reading Time Taken Comments Blood Pressure 145/73 04/07/2023 2:54 PM CDT Pulse 80 04/07/2023 2:54 PM CDT Temperature 36.7 C (98.1 F) 03/04/2022 3:14 PM CDT Respiratory Rate 18 04/07/2023 2:54 PM CDT Oxygen Saturation 97% 01/09/2021 6:05 AM TARPER Inhaled Oxygen Concentration - - Weight 70.5 kg (155 lb 6.4 oz) 04/07/2023 2:54 P M CDT Height 170.2 cm (5' 7) 01/09/2023 2:26 PM TARPER Body Mass Index 24.34 01/09/2023 2:26 PM TARPER Plan of Treatment Health Maintenance Due Date [...] (#1) 2025 Medical Devices Implanted Type Area Seat Cover Cutter Device Identifier Shelf Expiration Date Model / Serial / Lot Hardware Left: Wrist Procedures Procedure Name Priority Date/Time Associated Diagnosis Comments HEMOGLOBIN A1C STAT 12/20/2020 2:29 PM TARPER LIPID PANEL STAT 12/20/2020 2:[address] ABDOMEN PELVIS WO CONTRAST Routine 08/11/2013 12:00 AM CDT from Last 3 Months or Most Recently Relevant to Health Maintenance Results * (ABNORMAL) Hemoglobin A1c (12/20/2020 2:29 PM TARPER) Hgb A1C 11.9(H) 4.0 - 5.6 % [facility] Estimated Average Glucose 295 mg/dL [facility] Comment: The ADA recommends reporting an estimated Average Glucose (eAG) with all Hemoglobin A1c results using the equation derived from a study of 507 normal and diabetic adults. Minority populations were underrepresented and children were not included. (Diabetes Care 31:7533-1780, 2008). The eAG is not equivalent to a fasting glucose. Blood specimen (specimen) 12/20/2020 2:29 PM TARPER 12/20/2020 2:52 PM TARPER us Gabino Rodriguez MD LAB BLOOD ORDERABLES Final Re sult [facility] One [facility] [place] [address] * (ABNORMAL) Lipid panel (12/20/2020 2:29 PM TARPER) Cholesterol 73 30 - 199 mg/dL [facility] Comment: Interpretive Data Ages < [...] revised on 2018. Triglycerides 72 <=149 mg/dL [facility] Comment: Interpretive Data Ages < [...] revised on 2018. HDL 25(L) >=40 mg/dL [facility] Comment: Interpretive Data Ages < [...] on 2018. LDL, calculated 34 <=129 mg/dL [facility] Comment: Interpretive Data Ages < [...] revised on 2018. Non-HDL Cholesterol 48 mg/dL [facility] Comment: Interpretive Data Ages < [...] last revised on 2018. Chol/HDL ratio 3 [facility] Blood specimen (specimen) 12/20/2020 2:29 PM TARPER 12/20/2020 2:49 PM TARPER us Gabino Rodriguez MD LAB BLOOD ORDERABLES Edited R esult - Final [facility] [place] [address] * CT Abdomen Pelvis WO Contrast (08/11/2013 [...] Cody M.D. MJ:yoshi 08:01 PM 08:01 PM [facility] [EOD] Narrative 08/11/2013 8:05 PM CDT [...] Mild thickening of the rectum unchanged from [id number] exam. This may reflect nondistention with contrast [...] Cody M.D. MJ:yoshi 08:01 PM 08:01 PM [facility] [EOD] us Historical Provider MD PALM CT PROCEDURES Final R esult from Last 3 Months or Most Recently Relevant to Health Maintenance Insurance [facility] MEDICARE [facility] MEDICARE BL CHO[place] Advance Directives For more information, please contact: [phone] Documents on File Type Date Recorded Patient School Of Nursing Director Expl anation ADVANCE DIRECTIVE 02/17/2021 8:14 PM Power of Ticket Machine Operator-Medical ADVANCE DIRECTIVE 01/08/2021 1:22 AM Power of Ticket Machine Operator-Medical ADVANCE DIRECTIVE 01/08/2021 1:21 AM Power of Ticket Machine Operator-Financial/Medical * Full Code (Latest Code Status on File) Date Activated Date Inactivated Comments 12/20/2020 11:43 PM 01/09/2021 3:30 PM Care Teams Roofing Foreman Relationship Specialty Start Date End Date No, Physician PCP - General 01/09/21
[2025-06-29] MEDS: HYDROmorphone HCL INJ (*CRX) 1 MG/ML SYR IV PUSH (09:12)
[2025-06-29] MEDS: SODIUM CHLORIDE 0.9% IV 1,000 ML 999 ML IV CONT ×2 (09:13→10:07)
[2025-06-29] MEDS: cefTRIAXone 1 GM in SODIUM CHLORIDE 0.9% IV 50 ML 100 ML IVPB (09:13)
[2025-06-29] MEDS: ONDANSETRON INJ 4 MG/2 ML VIAL IV PUSH ×3 (09:13→17:32)
[2025-06-29 09:28] LABS: Alanine Aminotransferase 20 U/L (6-50); Albumin Level 4.0 g/dL (3.5-5.1); Alkaline Phosphatase 81 U/L (38-126); Anion Gap 17 mmol/L (4-12); Aspartate Amino Transferase 25 U/L (17-59); Bilirubin,Total 0.3 mg/dL (0.2-1.3); Blood Urea Nitrogen 59 mg/dL (9-20); Calcium 9.4 mg/dL (8.4-10.2); Carbon Dioxide 19 mmol/L (22-30); Chloride 96 mmol/L (98-107); Estimated CRCL calculation 9 ml/min; Estimated Glomerular Filt Rate 9; Glucose 287 mg/dL (65-110); Lipase 66 U/L (23-300); Potassium 3.6 mmol/L (3.4-5.0); Sodium 132 mmol/L (137-145); Total Protein 6.9 g/dL (6.3-8.2)
[2025-06-29] MEDS: metroNIDAZOLE 500 MG/ISO 100ML 500 MG/100 ML BAG 100 MG IVPB ×2 (10:07→17:34)
[2025-06-29 10:12] LABS: CRP 0.6 mg/dL (<1.0)
[2025-06-29] MEDS: SODIUM CHLORIDE 0.9% IV 400 ML 999 ML IV CONT (11:25)
--- NOTE | 2025-06-29 12:21 | ADMGEN ---
This patient, Sukhdev Lowery III, was admitted to [facility] Surg Room 321-02. Patient/family oriented to hospital policies and general routines including ID bracelet, bed and alarms, visiting hours, pain management, procedures, bathroom and other care routines, personal items, smoking policy, room service/diet, and visiting hours. Information on how to activate the Rapid Response Team has been discussed. Patient/Family are encouraged to report perceived risks to care and to ask questions if they do not understand what they are told or what they should do.
--- NOTE | 2025-06-29 12:26 | P.HP_ITS ---
H&P: HPI History of Present Illness Date/Time: 06/29/25 12:26 Chief Complaint: N/V, Abdominal Pain Narrative: 70 y/o M with PMH of peripheral vascular disease, anemia of chronic disease, ESRD on HD, hypertension, IBS, and diabetes presents here with nausea, vomiting, and abdominal pain. The patient presents here from home for further evaluation of ongoing nausea, vomiting, and abdominal pain. He was initially seen yesterday on 06/28 for same symptoms. At that time he was diagnosed with diverticulitis and discharged home with antibiotics. Pain has been ongoing for the past 3-4 days. However, after discharge he reports the pain got significantly worse and he was unable to complete his peritoneal dialysis. He does PD 4 days per week with a home health nurse. He denies fever, chills, body aches. He is unsure when his last colonoscopy was, however on file shows last completed in 2020. Multiple polyps found which were biopsied and showed tubular adenomas x5, benign polyps consistent with hyperplastic/sessile polyp x3. Initial VS at presentation: 97.9? F, HR 80, RR 22, 184/73, and 98% on room air. ED workup showed: WBC 13.8, hemoglobin 10.4, sodium 132, creatinine 6.53 and GFR 9, glucose 287, lactic 1.4, CRP 0.6. CXR showed no opacities in the right mid lung zone which could represent atelectasis or pneumonia. CT of the abdomen/pelvis from 06/28 showed a short-segment focal thickening of the ramey of the distal descending colon and proximal sigmoid colon, mild left hydronephrosis and mild left hydroureter with no ureteral calculi, moderate concentric thickening of the ramey of the bladder, no bladder calculi, moderate size compression fracture of the T12 which may be old. Review of Systems Review of Systems: All systems reviewed & are unremarkable except as noted in HPI and below PMFSH Past Medical History Medical History Depression Anxiety Shingles PAF (paroxysmal atrial fibrillation) PVD (peripheral vascular disease) Anemia End stage renal disease Urinary retention Overweight (BMI 25.0-29.9) Diarrhea HTN (hypertension) IBS (irritable bowel syndrome) Diabetes Surgical History Surgical History History of tonsillectomy History of hemorrhoidectomy Status post below knee amputation of right lower extremity S/P dialysis catheter insertion S/P arteriovenous (AV) fistula creation Family History Family History Father Congestive heart failure Mother Cancer Social History Social History Smoking status: Never smoker Second hand tobacco smoke exposure: Yes Alcohol intake: never Drinks per week: 0 Substance use: never Substance use type: does not use Do You Feel Safe in your Home?: Yes Lack of Transportation: No Lack of Food: Never True Current Housing: I Have Housing Concerned About Future Housing: No Difficulty Paying Gas/Electric Bills: No Difficulty Paying for Meds: No Currently Unemployed: No Education: High School Diploma/GED Difficulty w/ Childcare or Family Care: No Living arrangements: with family Spiritual care concerns: No Meds Home Medications and Allergies Home Medications ?Medication ?Instructions ?Recorded ?Confirmed ?Type ferrous sulfate 324 mg (65 mg 324 mg PO DAILY 12/16/23 06/29/25 History iron) tablet,delayed release tamsulosin 0.4 mg capsule 0.4 mg PO DAILY 12/16/23 06/29/25 History amlodipine 5 mg tablet 5 mg PO DAILY 02/10/24 06/29/25 History aspirin 325 mg tablet,delayed 325 mg PO QAM 30 days #30 tabs 03/05/25 06/29/25 Rx release metoprolol succinate 25 mg 25 mg PO QAM 30 days #30 tabs 05/03/25 06/29/25 Rx tablet,extended release 24 hr (Toprol XL) flecainide 100 mg tablet 100 mg PO Q12H #60 tabs 05/25/25 06/29/25 Rx ciprofloxacin HCl 500 mg tablet 500 mg PO Q12H #20 tabs 06/28/25 06/29/25 Rx dicyclomine 20 mg tablet 20 mg PO TID #30 tabs 06/28/25 06/29/25 Rx hydrocodone 5 mg-acetaminophen 325 1 tablet PO Q6H PRN pain #10 tabs 06/28/25 06/29/25 Rx mg tablet metronidazole 500 mg tablet 500 mg PO BID #20 tabs 06/28/25 06/29/25 Rx ondansetron 4 mg disintegrating 4 mg PO Q8H #14 tabs 06/28/25 06/29/25 Rx tablet escitalopram oxalate 5 mg tablet 5 mg PO DAILY 06/29/25 06/29/25 History Allergies Allergy/AdvReac Type Severity Reaction Status Date / Time No Known Allergies Allergy Verified 06/28/25 09:31 Vital Signs Vital Signs - 24 hr 06/29/25 08:49 06/29/25 08:50 06/29/25 09:01 Temperature 97.9 F Pulse Rate 88 88 87 Respiratory Rate 22 H 22 H 22 H Blood Pressure 184/73 H 184/73 H 174/72 H Pulse Oximetry 98 100 100 Oxygen Delivery Room Air Oxygen Flow Rate 06/29/25 09:57 06/29/25 10:13 06/29/25 10:43 Temperature Pulse Rate 81 80 Respiratory Rate 13 20 Blood Pressure 165/58 H Pulse Oximetry 98 95 85 L Oxygen Delivery Room Air Oxygen Flow Rate 06/29/25 10:44 06/29/25 11:15 06/29/25 11:47 Temperature 98.0 F Pulse Rate 77 78 Respiratory Rate 20 20 Blood Pressure 165/73 H 156/70 H Pulse Oximetry 99 100 97 Oxygen Delivery Nasal Cannula Oxygen Flow Rate 2 Exam Const: General: comfortable and no acute distress Other: , male, elderly appearance, nontoxic HENMT: Face/Nose/Sinus: Normal nares present Mouth: Yes moist mucous membranes Eyes: General: appearance normal, both eyes and all related structures Sclera: sclerae normal Pupils: Equal, round and reactive pupils present EOM: EOMs intact bilaterally Resp: Effort & Inspection: normal respiratory effort Auscultation: clear to auscultation bilaterally Cardio: Rate: regular rate Rhythm: regular rhythm Other: S1-S2 present without murmur, rub, ectopy GI: Other: Abdomen has diffuse tenderness, worse in the lower quadrants (left greater than right), normoactive bowel sounds in all quadrants, and nondistended. Skin: General skin exam: normal color and no rashes or lesions noted Wounds: no wounds Neuro: Speech: normal speech Motor exam (neuro): 5/5 motor strength present throughout Sensory Exam: normal sensation Other: A&O x4 Extrem: General: normal to inspection Psych: Mental Status: mental status grossly normal Affect: normal affect Other: Fair insight and judgment, pleasant H&P: Results Labs Labs: Short CBC 06/29/25 Range/Units 08:56 WBC 13.8 H (4.5-10.0) K/mm3 Hgb 10.4 L (14.0-18.0) g/dL Hct 29.3 L (42.0-52.0) % Plt Count 144 L (150-375) k/mm3 BMP 06/29/25 08:56 Sodium 132 L Potassium 3.6 Chloride 96 L Carbon Dioxide 19 L BUN 59 H D Creatinine 6.53 H Glucose 287 H Calcium 9.4 Liver Function 06/29/25 Range/Units 08:56 Total Bilirubin 0.3 (0.2-1.3) mg/dL AST 25 (17-59) U/L ALT 20 (6-50) U/L Alkaline Phosphatase 81 (38-126) U/L Albumin 4.0 (3.5-5.1) g/dL Assessment and Plan Assessment and plan (1) Diverticulitis: Code(s): K57.92 - Diverticulitis of intestine, part unspecified, without perforation or abscess without bleeding Status: Acute Assessment and Plan: - CT abd/pelvis, 06/28: 1.Short segment focal thickening of the ramey of the distal descending colon and proximal sigmoid colon. Differential includes incomplete bowel wall distention, diverticulitis or mass. Recommend follow-up to resolution. 2.Mild left-sided hydronephrosis and mild left-sided hydroureter. No ureteral calculi. 3. Moderate concentric thickening of the ramey of the bladder. Differential includes incomplete bladder wall distention versus cystitis. 4. No bladder calculi. 5.Moderate sized compression fracture of the T12 vertebral body which may be old. Correlate clinically. - last colonoscopy on file in 2020: Sigmoid colon polyps, ascending colon polyps, descending colon polyps ->> consider GI consultation if pain not improving - started on Ceftriaxone + Metronidazole - IV fluids: 1L bolus, now on 125 mL/hr - clear liquid diet - pain medication prn - daily clinical reassessment for improvement (2) End stage renal disease: Code(s): N18.6 - End stage renal disease Status: Chronic Assessment and Plan: - history of ESRD on HD, NIA muñiz - creatinine 6.53, BUN 59, GFR 9 upon admission - nephrology consulted for inpatient PD - dialysis: 4d per week with HH RN - trend renal function - trend electrolytes, correct as needed (3) Diabetes: Qualifiers: Diabetes mellitus complication status: with hyperglycemia Diabetes mellitus assisted insulin use: without salvage determiner use Diabetes mellitus type: type 2 Qualified Code(s): E11.65 - Type 2 diabetes mellitus with hyperglycemia Code(s): E11.9 - Type 2 diabetes mellitus without complications Status: Chronic Assessment and Plan: - previous hx of and no longer on medications, most recent A1C on 03/04/25 was 5.9%. initial glucose 287. will update A1C. - hypoglycemia protocol - POC blood glucose ACHS - correct regimen ordered - moderate dose TIDWM, based off BMI (4) PAF (paroxysmal atrial fibrillation): Code(s): I48.0 - Paroxysmal atrial fibrillation Status: Chronic Assessment and Plan: - continue home medications: Metoprolol - sinus rhythm on initial EKG in the ED (5) HTN (hypertension): Qualifiers: Hypertension type: unspecified Qualified Code(s): I10 - Essential (primary) hypertension Code(s): I10 - Essential (primary) hypertension Status: Chronic Assessment and Plan: - chronic, currently 170/74 - continue home medications: amlodipine, flecainide, metoprolol - monitor Plan Diet: Clear liquid GI Prophylaxis: n/a DVT Prophylaxis: SCD IV fluids: None Lines/Tubes: Peripheral IV Code Status: Full code Quality VTE Prophylaxis VTE prophylaxis: mechanical ordered Hospitalist [facility] Advance Care Plan I have confirmed that the patient's Advanced Care Plan is present, code status is documented, or surrogate decision maker is listed in patient medical record.: Yes Medication Reconciliation I have utilized all available resources to obtain, update and review the patients current medications (includes all prescriptions, OTC, herbals, cannabis, and nutritional supplements).: Yes
[2025-06-29] MEDS: LIDOCAINE/PRILOCAINE CREAM 2.5-2.5% TUBE 1 EACH TOPICAL (12:57)
[2025-06-29] MEDS: HYDROmorphone HCL INJ (*CRX) 1 MG/ML SYR 0.5 MG IV PUSH ×2 (12:59→20:21)
--- NOTE | 2025-06-29 14:12 | P.CONNP_ITS ---
Assessment and Plan Assessment and plan (1) End stage renal disease: Code(s): N18.6 - End stage renal disease Status: Chronic Assessment and Plan: * normally does home hemodialysis 4x/week * HD today * mild acidosis noted -- likely due to missed dialysis treatment yesterday * follow electrolytes, volume status, and clearance acceptable (2) Diverticulitis: Code(s): K57.92 - Diverticulitis of intestine, part unspecified, without perforation or abscess without bleeding Status: Acute Assessment and Plan: * as suspected from recent CT of A/P: * short segment focal thickening of the ramey of the distal descending colon and proximal sigmoid colon. Differential includes incomplete bowel wall distention, diverticulitis or mass...recommend follow-up to resolution. * on IV antibiotics * IV anti-emetics * pain medications * follow cultures * continue supportive therapy (3) PAF (paroxysmal atrial fibrillation): Code(s): I48.0 - Paroxysmal atrial fibrillation Status: Chronic Assessment and Plan: * continue rate control strategy * on anticoagulation (4) Anemia: Code(s): D64.9 - Anemia, unspecified Status: Acute Assessment and Plan: * due to ESRD * getting ALEX with HD * follow trend of H/H (5) HTN (hypertension): Qualifiers: Hypertension type: unspecified Qualified Code(s): I10 - Essential (primary) hypertension Code(s): I10 - Essential (primary) hypertension Status: Chronic Assessment and Plan: * elevated at this time * however, suspect abdominal pain/discomfort contributing... * follow trend of hemodynamics (6) Diabetes: Qualifiers: Diabetes mellitus type: type 2 Diabetes mellitus correction insulin use: without correction use Diabetes mellitus complication status: with hyperglycemia Qualified Code(s): E11.65 - Type 2 diabetes mellitus with hyperglycemia Code(s): E11.9 - Type 2 diabetes mellitus without complications Status: Chronic Assessment and Plan: * follow accu-checks * appears diet control as an outpatinet * glycemic control per hospitalist I will continue follow the patient with you while remains hospitalized and make further recommendations as deemed necessary. Thank you for allowing me to participate in the care of this patient. L History of Present Illness Reason for Consult Consult date: 06/29/25 Reason for consult: end stage renal disease Chief Complaint Chief complaint: Diverticulitis/Chronic Kidney Disease on Peritonea History of Present Illness Narrative: The patient is a 70-year-old male with a past medical history as outlined below who presented to [facility] ER due nausea, vomiting, and abdominal pain. The patient was initially seen yesterday (06/28) in the ER for similar symptoms that have been going on for the last 3 - 4 days if not longer with subsequent evaluation led to the diagnosis of diverticulitis. He was then discharged home with oral anti-emetics and antibiotics. However, his abdominal pain has persisted and has significantly worsened since discharge for the ER. Due to his ongoing nausea and vomiting, he has been unable to take his nausea medications or antibiotic either. Apparently, his abdominal was so severe that he was unable to do his home hemodialysis treatment yesterday. No reported fevers, chills, or body aches. Due to these constellation of symptoms, he presented back to the ER for further assessment. On presentation to the ER, he was afebrile and hemodynamically stable (if not a bit hypertensive). Testing demonstrated a WBC 13.8, hemoglobin 10.4, sodium 132, creatinine 6.53, glucose 287, lactic 1.4, CRP 0.6. His CXR showed opacities in the right mid lung zone which could represent atelectasis or pneumonia. CT of the abdomen/pelvis from 06/28 showed a short-segment focal thickening of the ramey of the distal descending colon and proximal sigmoid colon, mild left hydronephrosis and mild left hydroureter with no ureteral calculi, moderate concentric thickening of the ramey of the bladder, no bladder calculi, moderate size compression fracture of the T12 which may be old. Given his recurrent symptoms and failure with regard to outpatient therapy, he was admitted tot hospital for IV antibiotics and further evaluation/therapy. Renal consultation was requested due to his end-stage renal disease. The patient normally does home hemodialysis 4x/week through [facility] under my care. He performed his last home hemodialysis treatment on Thursday and it was apparently uneventful. From a dialysis perspective, he has been doing well with home hemodialysis with ongoing support from his family. His daughter performs his dialysis treatments at home. He usually has stable monthly labs with regard to his ESRD parameters. Currently, at the time of my visit, he appears to be in mild/moderate distress seconadry to abdominal pain but is tolerating dialysis at this time (seen on HD at 2:00pm). Review of Systems 2 Review of Systems: As per HPI. [facility] Past Medical History Medical History Depression Anxiety Shingles PAF (paroxysmal atrial fibrillation) PVD (peripheral vascular disease) Anemia End stage renal disease Urinary retention Overweight (BMI 25.0-29.9) Diarrhea HTN (hypertension) IBS (irritable bowel syndrome) Diabetes Surgical History Surgical History History of tonsillectomy History of hemorrhoidectomy Status post below knee amputation of right lower extremity S/P dialysis catheter insertion S/P arteriovenous (AV) fistula creation Family History Family History Father Congestive heart failure Mother Cancer Social History Social History Smoking status: Never smoker Second hand tobacco smoke exposure: Yes Alcohol intake: never Drinks per week: 0 Substance use: never Substance use type: does not use Do You Feel Safe in your Home?: Yes Lack of Transportation: No Lack of Food: Never True Current Housing: I Have Housing Concerned About Future Housing: No Difficulty Paying Gas/Electric Bills: No Difficulty Paying for Meds: No Currently Unemployed: No Education: High School Diploma/GED Difficulty w/ Childcare or Family Care: No Living arrangements: with family Spiritual care concerns: No Meds Home Medications and Allergies Home Medications ?Medication ?Instructions ?Recorded ?Confirmed ?Type ferrous sulfate 324 mg (65 mg 324 mg PO DAILY 12/16/23 06/29/25 History iron) tablet,delayed release tamsulosin 0.4 mg capsule 0.4 mg PO DAILY 12/16/23 06/29/25 History amlodipine 5 mg tablet 5 mg PO DAILY 02/10/24 06/29/25 History aspirin 325 mg tablet,delayed 325 mg PO QAM 30 days #30 tabs 03/05/25 06/29/25 Rx release metoprolol succinate 25 mg 25 mg PO QAM 30 days #30 tabs 05/03/25 06/29/25 Rx tablet,extended release 24 hr (Toprol XL) flecainide 100 mg tablet 100 mg PO Q12H #60 tabs 07/10/25 08/14/25 Rx ciprofloxacin HCl 500 mg tablet 500 mg PO Q12H #20 tabs 06/28/25 06/29/25 Rx dicyclomine 20 mg tablet 20 mg PO TID #30 tabs 06/28/25 06/29/25 Rx hydrocodone 5 mg-acetaminophen 325 1 tablet PO Q6H PRN pain #10 tabs 06/28/25 06/29/25 Rx mg tablet metronidazole 500 mg tablet 500 mg PO BID #20 tabs 06/28/25 06/29/25 Rx ondansetron 4 mg disintegrating 4 mg PO Q8H #14 tabs 06/28/25 06/29/25 Rx tablet escitalopram oxalate 5 mg tablet 5 mg PO DAILY 06/29/25 06/29/25 History Allergies Allergy/AdvReac Type Severity Reaction Status Date / Time No Known Allergies Allergy Verified 06/28/25 09:31 Vital Signs Vital Signs Temp Pulse Resp BP Pulse Ox O2 Del Method O2 Flow Rate 06/29/25 14:00 76 153/64 H 06/29/25 13:45 77 164/65 H 06/29/25 13:29 79 161/73 H 06/29/25 13:13 98.6 F 79 18 165/70 H 06/29/25 13:13 2 06/29/25 12:25 97.4 F L 83 16 170/74 H 98 06/29/25 12:20 98 Nasal Cannula 2 06/29/25 11:47 98.0 F 78 20 156/70 H 97 06/29/25 11:15 77 20 165/73 H 100 06/29/25 10:44 99 Nasal Cannula 2 06/29/25 10:43 85 L Room Air 06/29/25 10:13 80 20 165/58 H 95 06/29/25 09:57 81 13 98 06/29/25 09:01 87 22 H 174/72 H 100 06/29/25 08:50 88 22 H 184/73 H 100 06/29/25 08:49 97.9 F 88 22 H 184/73 H 98 Room Air Exam 2 Narrative: GENERAL APPEARANCE: elderly but well developed well nourished male in mild distress (secondary to abdominal pain) HEENT: normocephalic, atraumatic, no conjunctiva and sclera, nares patient NECK: no lymphadenopathy, thyromegaly, or JVD MOUTH: normal lips, teeth, and gums CARDIOVASCULAR: normal S1 and S2, no rub RESPIRATORY: clear anteriorly ABDOMEN: soft but with TTP in lower abdomen (L>R); diminished bowel sounds EXTREMITIES: no evidence of cyanosis, clubbing, or edema; s/p right BKA NEUROLOGICAL: alert and oriented x 3; CN II - XII intact bilaterally; no focal deficits noted Results Lab Results 06/29/25 08:56 06/29/25 08:56 Lab results: Most recent lab results Calcium 9.4 mg/dL (8.4-10.2) 06/29/25 08:56
[2025-06-29] MEDS: MORPHINE SULFATE (*CRX) 2 MG/ML INJ IV PUSH (17:32)
[2025-06-29] MEDS: SODIUM CHLORIDE 0.9% IV 1,000 ML 125 ML IV CONT (17:33)
[2025-06-29] MEDS: FLECAINIDE ACETATE 100 MG TABLET PO (20:13)
[2025-06-30] VITALS (12 sets, daily range): BP systolic 112–159; BP diastolic 63–71; PULSE 60–75; RESP 16–22; TEMP 36.7–36.9; O2SAT 91–100
[2025-06-30] MEDS: metroNIDAZOLE 500 MG/ISO 100ML 500 MG/100 ML BAG 100 MG IVPB ×3 (02:10→17:16)
[2025-06-30] MEDS: HYDROmorphone HCL INJ (*CRX) 1 MG/ML SYR 0.5 MG IV PUSH (04:48)
--- NOTE | 2025-06-30 05:11 | PC.NURSE ---
On 06/29/25-06/30/25, MONIQUE Sanchez, provided care and completed [facility] documentation on this patient. I have reviewed her documentation and agree with the findings.
[2025-06-30 06:56] LABS: Hematocrit 28.6 % (42.0-52.0); Hemoglobin 9.3 g/dL (14.0-18.0); Immature Granulocyte Percent A 0.2 % (0-0.5); Lymphocytes Absolute Auto 6.06 K/mm3 (0.9-3.2); Mean Corpuscular HGB Conc 32.5 g/dl (32-36); Mean Corpuscular Hemoglobin 32.2 pg (26-34); Mean Corpuscular Volume 99.0 fl (80-100); Nucleated Red Blood Cells Absolute Auto 0.000 K/mm3 (0.0-0.012); Nucleated Red Blood Cells Perc 0.0 % (0.0-0.2); Platelet Count Result 164 k/mm3 (150-375); Red Blood Count 2.89 M/mm3 (4.6-6.20); White Blood Count 13.7 K/mm3 (4.5-10.0)
--- NOTE | 2025-06-30 07:23 | P.PNIM_ITS ---
Progress Note: A&P Assessment and Plan (1) Diverticulitis: Code(s): K57.92 - Diverticulitis of intestine, part unspecified, without perforation or abscess without bleeding Status: Acute Assessment and Plan: * CT abd/pelvis, 06/28: * Short segment focal thickening of the ramey of the distal descending colon and proximal sigmoid colon. Differential includes incomplete bowel wall distention, diverticulitis or mass. Recommend follow-up to resolution. * Mild left-sided hydronephrosis and mild left-sided hydroureter. No ureteral calculi. * Moderate concentric thickening of the ramey of the bladder. Differential includes incomplete bladder wall distention versus cystitis. * No bladder calculi. * Moderate sized compression fracture of the T12 vertebral body which may be old. Correlate clinically. * last colonoscopy on file in 2020: Sigmoid colon polyps, ascending colon polyps, descending colon polyps ->> consider GI consultation if pain not improving * started on Ceftriaxone + Metronidazole * IV fluids: 1L bolus, now on 125 mL/hr * clear liquid diet * pain medication prn * daily clinical reassessment for improvement * GI consult * Stool studies * Repeat CT to assess for perforation, abscess, fistula * Continue prn pain meds, antiemetics * Arrange outpt colonscopy (2) End stage renal disease: Code(s): N18.6 - End stage renal disease Status: Chronic Assessment and Plan: * history of ESRD on HDNIA * creatinine 6.53, BUN 59, GFR 9 upon admission * dialysis: 4d per week with HH RN * trend renal function * trend electrolytes, correct as needed * Nephrology Consult * HD yesterday * Mild acidosis likely 2/2 missed dialysis (3) Diabetes: Qualifiers: Diabetes mellitus complication status: with hyperglycemia Diabetes mellitus salvage determiner insulin use: without salvage determiner use Diabetes mellitus type: type 2 Qualified Code(s): E11.65 - Type 2 diabetes mellitus with hyperglycemia Code(s): E11.9 - Type 2 diabetes mellitus without complications Status: Chronic Assessment and Plan: * previous hx of and no longer on medications, most recent A1C on 03/04/25 was 5.9%. initial glucose 287. will update A1C. * hypoglycemia protocol * POC blood glucose ACHS * correct regimen ordered - moderate dose TIDWM, based off BMI (4) PAF (paroxysmal atrial fibrillation): Code(s): I48.0 - Paroxysmal atrial fibrillation Status: Chronic Assessment and Plan: * continue home medications: Metoprolol * sinus rhythm on initial EKG in the ED (5) HTN (hypertension): Qualifiers: Hypertension type: unspecified Qualified Code(s): I10 - Essential (primary) hypertension Code(s): I10 - Essential (primary) hypertension Status: Chronic Assessment and Plan: * chronic, currently 170/74 * continue home medications: amlodipine, flecainide, metoprolol * monitor Plan Diet: Clear liquid GI Prophylaxis: n/a DVT Prophylaxis: SCD IV fluids: None Lines/Tubes: Peripheral IV Code Status: Full code Subjective Date/time seen: 06/30/25 07:23 Interval history: 70 y/o M with PMH of peripheral vascular disease, anemia of chronic disease, ESRD on HD, hypertension, IBS, and diabetes presents here with nausea, vomiting, and abdominal pain. 06/30/2025 Patient sitting comfortably in bed at time of exam. Endorsing intermittent LLQ abdominal tenderness and nausea but none at this time. Given worsening abdominal pain, GI consulted and will order repeat CT of the abd/pelvis to assess for possible abscess/perforation/fistula. Continue supportive management with prn pain meds and antiemetics. Plan for follow up colonoscopy in outpt setting. Pt otherwise has no complaints, afebrile, WBC down from 13.8 ->13.7. Review of Systems Review of Systems: All systems reviewed & are unremarkable except as noted in HPI and below Exam Const: General: comfortable and no acute distress Other: , male, elderly appearance, nontoxic HENMT: Face/Nose/Sinus: Normal nares present Mouth: Yes moist mucous membranes Eyes: General: appearance normal, both eyes and all related structures Sclera: sclerae normal Pupils: Equal, round and reactive pupils present EOM: EOMs intact bilaterally Resp: Effort & Inspection: normal respiratory effort Auscultation: clear to auscultation bilaterally Cardio: Rate: regular rate Rhythm: regular rhythm Other: S1-S2 present without murmur, rub, ectopy GI: Other: Abdomen has diffuse tenderness, worse in the lower quadrants (left greater than right), normoactive bowel sounds in all quadrants, and nondistended. Skin: General skin exam: normal color and no rashes or lesions noted Wounds: no wounds Neuro: Cranial nerves: Yes Equal, round and reactive pupils present Speech: normal speech Motor exam (neuro): 5/5 motor strength present throughout Sensory Exam: normal sensation Other: A&O x4 Extrem: General: normal to inspection Psych: Mental Status: mental status grossly normal Affect: normal affect Other: Fair insight and judgment, pleasant Objective Data Vital Signs Vital Signs: Vital Signs - 24 hr 06/29/25 08:49 06/29/25 08:50 06/29/25 09:01 Temperature 97.9 F Pulse Rate 88 88 87 Respiratory Rate 22 H 22 H 22 H Blood Pressure 184/73 H 184/73 H 174/72 H Pulse Oximetry 98 100 100 Oxygen Delivery Room Air Oxygen Flow Rate 06/29/25 09:57 06/29/25 10:13 06/29/25 10:43 Temperature Pulse Rate 81 80 Respiratory Rate 13 20 Blood Pressure 165/58 H Pulse Oximetry 98 95 85 L Oxygen Delivery Room Air Oxygen Flow Rate 06/29/25 10:44 06/29/25 11:15 06/29/25 11:47 Temperature 98.0 F Pulse Rate 77 78 Respiratory Rate 20 20 Blood Pressure 165/73 H 156/70 H Pulse Oximetry 99 100 97 Oxygen Delivery Nasal Cannula Oxygen Flow Rate 2 06/29/25 12:20 06/29/25 12:25 06/29/25 13:13 Temperature 97.4 F L Pulse Rate 83 Respiratory Rate 16 Blood Pressure 170/74 H Pulse Oximetry 98 98 Oxygen Delivery Nasal Cannula Oxygen Flow Rate 2 2 06/29/25 13:13 06/29/25 13:29 06/29/25 13:45 Temperature 98.6 F Pulse Rate 79 79 77 Respiratory Rate 18 Blood Pressure 165/70 H 161/73 H 164/65 H Pulse Oximetry Oxygen Delivery Oxygen Flow Rate 06/29/25 14:00 06/29/25 14:15 06/29/25 14:30 Temperature Pulse Rate 76 76 76 Respiratory Rate Blood Pressure 153/64 H 158/71 H 164/71 H Pulse Oximetry Oxygen Delivery Oxygen Flow Rate 06/29/25 14:45 06/29/25 15:00 06/29/25 15:15 Temperature Pulse Rate 77 76 76 Respiratory Rate Blood Pressure 161/74 H 161/74 H 161/74 H Pulse Oximetry Oxygen Delivery Oxygen Flow Rate 06/29/25 15:30 06/29/25 15:45 06/29/25 16:00 Temperature Pulse Rate 78 79 79 Respiratory Rate Blood Pressure 171/78 H 166/74 H 153/64 H Pulse Oximetry Oxygen Delivery Oxygen Flow Rate 06/29/25 16:15 06/29/25 16:30 06/29/25 16:45 Temperature Pulse Rate 79 80 81 Respiratory Rate Blood Pressure 176/76 H 172/72 H 178/77 H Pulse Oximetry Oxygen Delivery Oxygen Flow Rate 06/29/25 17:00 06/29/25 17:02 06/29/25 17:10 Temperature 97.6 F 98.7 F Pulse Rate 80 82 84 Respiratory Rate 18 18 Blood Pressure 162/72 H 167/77 H 164/73 H Pulse Oximetry 97 Oxygen Delivery Oxygen Flow Rate 06/29/25 20:00 06/29/25 20:13 06/29/25 21:37 Temperature 98.2 F Pulse Rate 80 76 Respiratory Rate 20 Blood Pressure 154/68 H Pulse Oximetry 100 100 Oxygen Delivery Nasal Cannula Oxygen Flow Rate 2 06/30/25 06:00 Temperature 98.5 F Pulse Rate 75 Respiratory Rate 16 Blood Pressure 159/68 H Pulse Oximetry 96 Oxygen Delivery Oxygen Flow Rate Intake/Output Intake/Output: Intake & Output 06/27/25 06/28/25 06/29/25 06/30/25 23:59 23:59 23:59 23:59 Intake Total 2650 650 Output Total 0 Balance 2650 650 Meds/Results Medications: Active Medications Generic Name Dose Route Start Last Admin Trade Name Freq PRN Reason Stop Dose Admin Acetaminophen 650 mg 06/29/25 12:42 Acetaminophen 325 Mg Tablet PO Q6H PRN Mild Pain (1-3) or Fever Hydrocodone Bitart/Acetaminophen 1 tab 06/29/25 12:42 Hydrocodone/Acetaminophen (*Crx) 5-325 Mg Tablet PO Q6H PRN Pain Rated 4-6 Amlodipine Besylate 5 mg 06/30/25 09:00 Amlodipine Besylate 5 Mg Tablet PO DAILY [facility] Aspirin 325 mg 06/30/25 09:00 Aspirin 325 Mg Enteric Tablet PO QAM [facility] Dextrose 12.5 gm 06/29/25 12:50 Dextrose 50% 25 Gm/50 Ml Syringe IV PUSH PRN PRN Hypoglycemia Protocol Dicyclomine HCl 20 mg 06/29/25 12:42 Dicyclomine Hcl 10 Mg Capsule PO QID PRN Abdominal Cramping Escitalopram Oxalate 5 mg 06/30/25 09:00 Escitalopram Oxalate 5 Mg Tablet PO DAILY [facility] Ferrous Sulfate 324 mg 06/30/25 09:00 Ferrous Sulfate [address] BY MOUTH DAILY [facility] Flecainide Acetate 100 mg 06/29/25 21:00 06/29/25 20:13 Flecainide Acetate 100 Mg Tablet PO 100 mg Q12H [facility] Administration Glucagon 1 mg 06/29/25 12:50 Glucagon For Inj 1 Mg Vial IM PRN PRN Hypoglycemia Protocol Glucose 15 gm 06/29/25 12:50 Glucose Oral Gel 15 Gm Of Glucse In 37.5 Gm Tube PO PRN PRN Hypoglycemia Protocol Hydromorphone HCl 0.5 mg 06/29/25 10:42 06/30/25 04:48 Hydromorphone Hcl Inj (*Crx) 1 Mg/Ml Syr IV PUSH 0.5 mg Q4H PRN Administration Pain Rated 7-10 Albumin Human 50 mls @ 999 mls/hr 06/29/25 11:31 Albutein IVPB 07/29/25 11:30 Q10M PRN HYPOTENSION Ceftriaxone Sodium 1 gm/ 50 mls @ 100 mls/hr 06/30/25 09:00 Sodium Chloride IVPB Q24H [facility] Metronidazole 500 mg in 100 mls @ 100 mls/hr 06/29/25 18:00 06/30/25 03:10 Flagyl 500 Mg/Iso Soln 100 Ml IVPB Infused Q8H [facility] Infusion Dextrose 1,000 mls @ 100 mls/hr 06/29/25 12:50 Dextrose 5% 1,000 Ml IVPB PRN PRN Hypoglycemia Protocol Insulin Aspart 3 - 6 units 06/29/25 17:00 06/29/25 18:06 Insulin Aspart (*Bkc) 100 Units/Ml SUB-Q Not Given TIDWM [facility] Protocol Lidocaine/Prilocaine 1 each 06/29/25 11:33 06/29/25 12:57 Lidocaine/Prilocaine Cream 2.5-2.5% Tube TOPICAL 1 each WITH DIALYSIS PRN Administration for dialysis Protocol Metoprolol Succinate 25 mg 06/30/25 09:00 Metoprolol Succinate Ext Rel 25 Mg Tabcr PO QAM [facility] Morphine Sulfate 2 mg 06/29/25 12:42 06/29/25 17:32 Morphine Sulfate (*Crx) 2 Mg/Ml Inj IV PUSH 2 mg Q4H PRN Administration Pain Rated 7-10 Ondansetron HCl 4 mg 06/29/25 10:42 06/29/25 17:32 Ondansetron Inj 4 Mg/2 Ml Vial IV PUSH 4 mg Q4H PRN Administration Nausea Polyethylene Glycol 17 gm 06/29/25 12:42 Polyethylene Glycol 3350 17 Gm Powd.Pack PO QAM PRN Constipation Tamsulosin HCl 0.4 mg 06/30/25 09:00 Tamsulosin Hcl 0.4 Mg Capsule PO DAILY [facility] Radiology Results: ITS Impressions Chest X-Ray 06/29/25 12:15 IMPRESSION: 1. New opacities in the right midlung zone which could represent atelectasis or pneumonia. Labs Labs: Laboratory Results - last 24 hr 06/29/25 06/29/25 06/29/25 08:56 08:56 09:56 WBC 13.8 H RBC 3.21 L Hgb 10.4 L Hct 29.3 L MCV 91.3 MCH 32.4 MCHC 35.5 RDW 13.5 Plt Count 144 L MPV 9.1 Immature Gran % (Auto) 0.2 Neut % (Auto) 41.9 L Lymph % (Auto) 55.4 H Anson % (Auto) 2.4 L Eos % (Auto) 0.0 Baso % (Auto) 0.1 L Lymph # (Auto) 7.63 H Anson # (Auto) 0.3 Eos # (Auto) 0.0 Baso # (Auto) 0.0 Abs Immat Gran (auto) 0.03 Absolute Neuts (auto) 5.8 Absolute Nucleated RBC 0.000 Nucleated RBC % 0.0 Sodium 132 L Potassium 3.6 Chloride 96 L Carbon Dioxide 19 L Anion Gap 17 H BUN 59 H D Creatinine 6.53 H Estim Creat Clear Calc 9 Estimated GFR 9 L Glucose 287 H POC Capillary Glucose Lactic Acid 1.4 Calcium 9.4 Total Bilirubin 0.3 AST 25 ALT 20 Alkaline Phosphatase 81 C-Reactive Protein 0.6 Cancelled Total Protein 6.9 Albumin 4.0 Lipase 66 06/29/25 06/29/25 17:52 20:58 WBC RBC Hgb Hct MCV MCH MCHC RDW Plt Count MPV Immature Gran % (Auto) Neut % (Auto) Lymph % (Auto) Anson % (Auto) Eos % (Auto) Baso % (Auto) Lymph # (Auto) Anson # (Auto) Eos # (Auto) Baso # (Auto) Abs Immat Gran (auto) Absolute Neuts (auto) Absolute Nucleated RBC Nucleated RBC % Sodium Potassium Chloride Carbon Dioxide Anion Gap BUN Creatinine Estim Creat Clear Calc Estimated GFR Glucose POC Capillary Glucose 126 H 144 H Lactic Acid Calcium Total Bilirubin AST ALT Alkaline Phosphatase C-Reactive Protein Total Protein Albumin Lipase Quality VTE Prophylaxis VTE prophylaxis: mechanical ordered
[2025-06-30 07:27] LABS: Alanine Aminotransferase 15 U/L (6-50); Albumin Level 3.7 g/dL (3.5-5.1); Alkaline Phosphatase 64 U/L (38-126); Anion Gap 11 mmol/L (4-12); Aspartate Amino Transferase 30 U/L (17-59); Bilirubin,Total 0.5 mg/dL (0.2-1.3); Blood Urea Nitrogen 26 mg/dL (9-20); Calcium 8.4 mg/dL (8.4-10.2); Carbon Dioxide 22 mmol/L (22-30); Chloride 103 mmol/L (98-107); Estimated CRCL calculation 17 ml/min; Estimated Glomerular Filt Rate 17; Glucose 162 mg/dL (65-110); Magnesium 2.0 mg/dL (1.6-2.3); Potassium 4.1 mmol/L (3.4-5.0); Sodium 136 mmol/L (137-145); Total Protein 6.6 g/dL (6.3-8.2)
[2025-06-30 08:11] LABS: MRSA (PCR) NOT DETECTED (NOT DETECTE)
[2025-06-30 08:35] LABS: Hemoglobin A1C 5.9 % (<5.7)
--- NOTE | 2025-06-30 09:05 | P.CONGI_ITS ---
Assessment and Plan Assessment and plan (1) Diverticulitis: Code(s): K57.92 - Diverticulitis of intestine, part unspecified, without perforation or abscess without bleeding Status: Acute (2) Diarrhea: Qualifiers: Diarrhea type: presumed infectious Qualified Code(s): R19.7 - Diarrhea, unspecified Code(s): R19.7 - Diarrhea, unspecified Status: Acute (3) Fecal incontinence: Qualifiers: Fecal incontinence type: full incontinence of feces Qualified Code(s): R15.9 - Full incontinence of feces Code(s): R15.9 - Full incontinence of feces Status: Acute (4) Generalized abdominal pain: Code(s): R10.84 - Generalized abdominal pain Status: Acute (5) Nausea: Code(s): R11.0 - Nausea Status: Acute (6) Leukocytosis: Qualifiers: Leukocytosis type: unspecified Qualified Code(s): D72.829 - Elevated white blood cell count, unspecified Code(s): D72.829 - Elevated white blood cell count, unspecified Status: Acute (7) End stage renal disease: Code(s): N18.6 - End stage renal disease Status: Chronic (8) Normocytic anemia: Code(s): D64.9 - Anemia, unspecified Status: Acute (9) Adenomatous colon polyp: Qualifiers: Colon location: ascending Qualified Code(s): D12.2 - Benign neoplasm of ascending colon Code(s): D12.6 - Benign neoplasm of colon, unspecified Status: Acute Plan 1. Diverticulitis/generalized abdominal pain/leukocytosis/personal history of colon polyps/chronic diarrhea/nausea: Last colonoscopy 08/23/2021 at which time he had multiple colon polyps removed most of which were tubular adenomas and was advised at that time to have a repeat colonoscopy in 3 years. Patient states that on Thursday he started having abdominal pain that started in his left lower quadrant and radiated throughout his abdomen. At time of today's exam he was having right lower quadrant tenderness with palpation he was seen at [facility] 06/28/2025 for these complaints of abdominal pain and was diagnosed with diverticulitis and started on a course of Cipro and Flagyl. Due to worsening of abdominal pain and inability to perform peritoneal dialysis the patient returned to the emergency room yesterday. CT 06/28/2025 showed short-segment focal thickening of the ramey of the distal descending colon and proximal sigmoid colon. He was also noted to have mild left-sided hydronephrosis and mild left- sided hydroureter and moderate concentric thickening of the wall of the bladder. He is currently on Rocephin and Flagyl and has had minimal change in his abdominal pain. He admits to chronic diarrhea and fecal incontinence which has been occurring since his diagnosis of ESRD. Patient states that he typically has multiple bowel movements daily but occasionally will have formed stools. He states that he has not had a bowel movement since Thursday. Patient has had no elevated temps prior to admission and his daughter states that she checks in at least 4 times weekly prior to peritoneal dialysis. He denied any increased abdominal pain with dialysis other than the day prior to his admission. DDX: Acute diverticulitis vs abscess vs perf vs peritoneal dialysis complication * stool studies ordered * repeat CT ordered to evaluate for possible abscess, perforation or fistula not noted on for CT. This will also allow us to evaluate for possible non GI related causes including peritoneal dialysis complications * Continue supportive care with pain management and antiemetics * patient overdue for repeat colonoscopy which was due in Aug 2024, can discuss scheduling this outpatient at least 6-8 weeks after acute diverticulitis episode. Patient will need to be seen in the office prior to arranging colonoscopy 2. ESRD on peritoneal dialysis: Monitored by primary care team. 3. Normocytic anemia: Patient with chronic anemia. Etiology likely multifactorial given multiple comorbidities including ESRD. No signs of active GI bleeding. * patient due for colonoscopy which can be arranged outpatient * primary care team to continue monitoring H/H and transfuse as needed to kepp Hgb >7 Thank you very much for allowing me to share in the care of this very nice patient. This report may have been done utilizing a voice recognition system. Attempts have been made to correct errors. However, there may be uncorrected grammatical, spelling, and recognition errors present. GI Consult Note Consult date/time: 06/30/25 09:05 HPI: Sukhdev Lowery III is a 70 year old male with PMSH of PVD, anemia, end-stage renal disease on peritoneal dialysis, HTN, IBS, diabetes, right [id number] amputation. He presented to the emergency room yesterday with complaints of worsening abdominal pain. GI has been consulted for diverticulitis. Patient was seen at [facility] 06/28/2025 at which time he was diagnosed with diverticulitis and started on a course of Cipro and Flagyl. Patient presented to the emergency room with worsening abdominal pain, nausea and vomiting and was unable to complete his peritoneal dialysis due to symptoms. Patient states that his abdominal pain has only mildly decreased since admission. He states that the pain starts in the LLQ on Thursday and then radiates throughout the abdomen. During his exam he complained of RLQ pain with palpation. Admits to nausea without vomiting and decreased appetite since Thursday. Admits to chronic diarrhea and fecal incontinence since his diagnoses of ESRD but states that he occasionally has formed stools. Denies swallowing difficulty, reflux, regurgitation, early satiety, weight loss, constipation, hematochezia or melena. He is a non drinker, non smoker and denies marijuana use. Family Hx negative for GI cancers or IBD. 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 ENDOSCOPY HISTORY: EGD: No prior Hx of EGD COLONOSCOPY: 08/23/[address] Wilks for CRC screening Findings: There were three 7 mm to 15 mm polyps observed in the sigmoid colon. The appearance seemed adenomatous in nature. Multiple hot snare polypectomies were performed polyps were completely excised and retrieved. One resolution clip placed successfully to prevent bleeding There were two 7 mm to 10 mm sessile polyps observed in the ascending colon. The appearance seemed benign in nature. Multiple hot snare polypectomies were performed polyps were completely excised and retrieved There were two 6 mm to 8 mm polyps observed in the descending colon. The appearance seemed benign in nature. Multiple hot snare polypectomies were performed polyps were completely excised and retrieved Biopsies taken rule out microscopic 3 year repeat recommended Bx results: A. ASCENDING COLON POLYPS x2, ENDOSCOPIC REMOVAL: - TUBULAR ADENOMAS x2. B. DESCENDING COLON POLYPS x2, ENDOSCOPIC REMOVAL: - TUBULAR ADENOMA. - BENIGN POLYP CONSISTENT WITH HYPERPLASTIC/ SESSILE SERRATED POLYP. C. SIGMOID COLON POLYPS x3, ENDOSCOPIC REMOVAL: - TUBULAR ADENOMAS x3. D. RANDOM COLON, ENDOSCOPIC BIOPSY: - COLONIC MUCOSA WITHOUT PATHOLOGIC ABNORMALITY. LABS AND STOOL STUDIES: Labs 06/30/2025: Sodium 136, potassium 4.1, BUN 26, creatinine 3.56, GFR 17, calcium 8.4, phosphorus 4.6, magnesium 2.0 WBC 14, Hgb 9, Hct 29, MCV 99, platelets 164 Total bilirubin 0.5, AST 30, ALT 15, Alkaline Phos 64, albumin 3.7 Labs 06/28/2025: WBC 12, Hgb 12, Hct 33, MCV 89, platelets 132, INR 1.0 Sodium 131, potassium 3.6, BUN 49, creatinine 5.01, GFR 12, calcium 9.4 Total bilirubin 0.4, AST 23, ALT 18, Alkaline Phos 94, albumin 4.3, lipase 276 IMAGING: CT abd/pelvis w/contrast 06/28/2025: IMPRESSION: 1.Short segment focal thickening of the ramey of the distal descending colon and proximal sigmoid colon. Differential includes incomplete bowel wall distention, diverticulitis or mass. Recommend follow-up to resolution. 2.Mild left-sided hydronephrosis and mild left-sided hydroureter. No ureteral calculi. 3. Moderate concentric thickening of the ramey of the bladder. Differential includes incomplete bladder wall distention versus cystitis. 4. No bladder calculi. 5.Moderate sized compression fracture of the T12 vertebral body which may be old. Correlate clinically. Review of Systems 2 Constitutional: Constitutional: Reports as per HPI ENT: Reports as per HPI Cardiovascular: Cardiovascular: Reports as per HPI, Denies chest pain and Denies dyspnea Respiratory: Respiratory: Denies cough, Denies hemoptysis and Denies dyspnea Gastrointestinal: Gastrointestinal: Reports as per HPI Musculoskeletal: Musculoskeletal: Reports as per HPI Integumentary/Breasts: Skin/Breast: Reports as per HPI Psychiatric: Psychiatric: Reports as per HPI Endocrine: Endocrine: Reports no additional endocrine complaints Hematologic/Lymphatic: Hematologic/Lymphatic: Reports no additional hematologic/lymphatic complaints ON LICENSE OF [facility] Past Medical History Medical History Depression Anxiety Shingles PAF (paroxysmal atrial fibrillation) PVD (peripheral vascular disease) Anemia End stage renal disease Urinary retention Overweight (BMI 25.0-29.9) Diarrhea HTN (hypertension) IBS (irritable bowel syndrome) Diabetes Surgical History Surgical History History of tonsillectomy History of hemorrhoidectomy Status post below knee amputation of right lower extremity S/P dialysis catheter insertion S/P arteriovenous (AV) fistula creation Family History Family History Father Congestive heart failure Mother Cancer Social History Social History Smoking status: Never smoker Second hand tobacco smoke exposure: Yes Alcohol intake: never Drinks per week: 0 Substance use: never Substance use type: does not use Do You Feel Safe in your Home?: Yes Lack of Transportation: No Lack of Food: Never True Current Housing: I Have Housing Concerned About Future Housing: No Difficulty Paying Gas/Electric Bills: No Difficulty Paying for Meds: No Currently Unemployed: No Education: High School Diploma/GED Difficulty w/ Childcare or Family Care: No Living arrangements: with family Spiritual care concerns: No Meds Home Medications and Allergies Home Medications ?Medication ?Instructions ?Recorded ?Confirmed ?Type ferrous sulfate 324 mg (65 mg 324 mg PO DAILY 12/16/23 06/29/25 History iron) tablet,delayed release tamsulosin 0.4 mg capsule 0.4 mg PO DAILY 12/16/23 06/29/25 History amlodipine 5 mg tablet 5 mg PO DAILY 02/10/24 06/29/25 History aspirin 325 mg tablet,delayed 325 mg PO QAM 30 days #30 tabs 03/05/25 06/29/25 Rx release metoprolol succinate 25 mg 25 mg PO QAM 30 days #30 tabs 05/03/25 06/29/25 Rx tablet,extended release 24 hr (Toprol XL) flecainide 100 mg tablet 100 mg PO Q12H #60 tabs 05/25/25 06/29/25 Rx ciprofloxacin HCl 500 mg tablet 500 mg PO Q12H #20 tabs 06/28/25 06/29/25 Rx dicyclomine 20 mg tablet 20 mg PO TID #30 tabs 06/28/25 06/29/25 Rx hydrocodone 5 mg-acetaminophen 325 1 tablet PO Q6H PRN pain #10 tabs 06/28/25 06/29/25 Rx mg tablet metronidazole 500 mg tablet 500 mg PO BID #20 tabs 06/28/25 06/29/25 Rx ondansetron 4 mg disintegrating 4 mg PO Q8H #14 tabs 06/28/25 06/29/25 Rx tablet escitalopram oxalate 5 mg tablet 5 mg PO DAILY 06/29/25 06/29/25 History Allergies Allergy/AdvReac Type Severity Reaction Status Date / Time No Known Allergies Allergy Verified 06/28/25 09:31 Vital Signs Vital Signs - 24 hr 06/29/25 09:57 06/29/25 10:13 06/29/25 10:43 Temperature Pulse Rate 81 80 Respiratory Rate 13 20 Blood Pressure 165/58 H Pulse Oximetry 98 95 85 L Oxygen Delivery Room Air Oxygen Flow Rate 06/29/25 10:44 06/29/25 11:15 06/29/25 11:47 Temperature 98.0 F Pulse Rate 77 78 Respiratory Rate 20 20 Blood Pressure 165/73 H 156/70 H Pulse Oximetry 99 100 97 Oxygen Delivery Nasal Cannula Oxygen Flow Rate 2 06/29/25 12:20 06/29/25 12:25 06/29/25 13:13 Temperature 97.4 F L Pulse Rate 83 Respiratory Rate 16 Blood Pressure 170/74 H Pulse Oximetry 98 98 Oxygen Delivery Nasal Cannula Oxygen Flow Rate 2 2 06/29/25 13:13 06/29/25 13:29 06/29/25 13:45 Temperature 98.6 F Pulse Rate 79 79 77 Respiratory Rate 18 Blood Pressure 165/70 H 161/73 H 164/65 H Pulse Oximetry Oxygen Delivery Oxygen Flow Rate 06/29/25 14:00 06/29/25 14:15 06/29/25 14:30 Temperature Pulse Rate 76 76 76 Respiratory Rate Blood Pressure 153/64 H 158/71 H 164/71 H Pulse Oximetry Oxygen Delivery Oxygen Flow Rate 06/29/25 14:45 06/29/25 15:00 06/29/25 15:15 Temperature Pulse Rate 77 76 76 Respiratory Rate Blood Pressure 161/74 H 161/74 H 161/74 H Pulse Oximetry Oxygen Delivery Oxygen Flow Rate 06/29/25 15:30 06/29/25 15:45 06/29/25 16:00 Temperature Pulse Rate 78 79 79 Respiratory Rate Blood Pressure 171/78 H 166/74 H 153/64 H Pulse Oximetry Oxygen Delivery Oxygen Flow Rate 06/29/25 16:15 06/29/25 16:30 06/29/25 16:45 Temperature Pulse Rate 79 80 81 Respiratory Rate Blood Pressure 176/76 H 172/72 H 178/77 H Pulse Oximetry Oxygen Delivery Oxygen Flow Rate 06/29/25 17:00 06/29/25 17:02 06/29/25 17:10 Temperature 97.6 F 98.7 F Pulse Rate 80 82 84 Respiratory Rate 18 18 Blood Pressure 162/72 H 167/77 H 164/73 H Pulse Oximetry 97 Oxygen Delivery Oxygen Flow Rate 06/29/25 20:00 06/29/25 20:13 06/29/25 21:37 Temperature 98.2 F Pulse Rate 80 76 Respiratory Rate 20 Blood Pressure 154/68 H Pulse Oximetry 100 100 Oxygen Delivery Nasal Cannula Oxygen Flow Rate 2 06/30/25 06:00 Temperature 98.5 F Pulse Rate 75 Respiratory Rate 16 Blood Pressure 159/68 H Pulse Oximetry 96 Oxygen Delivery Oxygen Flow Rate Exam 2 Const: General: cooperative, healthy appearing, no acute distress and well developed Orientation/consciousness: oriented to person, oriented to place, oriented to time and patient oriented x3 HENMT: Head: normal to inspection, normocephalic and atraumatic Mouth: Yes Normal oral and palatal mucosa present and Yes moist mucous membranes Eyes: General: appearance normal, both eyes and all related structures C onjunctivae: conjunctivae normal Sclera: sclerae normal Pupils: Equal, round and reactive pupils present Neck: Neck: normal visual inspection Chest: Chest palpation & inspection: normal inspection of the chest Resp: Effort & Inspection: normal respiratory effort and able to speak in complete sentences Auscultation: clear to auscultation bilaterally Cardio: Jugular venous distension: no JVD Rate: regular rate Rhythm: r egular rhythm Heart sounds: S1 normal heart sound present and S2 normal heart sound present GI: Inspection: distended GI Palp: Yes Soft to palpation and Yes Tenderness to palpation present (GI) (RLQ tenderness with palpation) Auscultation: n ormal bowel sounds Rectal Exam: deferred Skin: General skin exam: normal color and no rashes or lesions noted Neuro: General: oriented to person, oriented to place, oriented to time and patient oriented x3 Cranial nerves: Yes Equal, round and reactive pupils present Speech: normal speech Extrem: General: no clubbing, cyanosis or edema Other: Right BKA Psych: Appearance: grossly normal and well kempt Affect: normal affect Results Labs 06/30/25 06:33 06/30/25 06:33 Labs: Short CBC 06/29/25 06/30/25 Range/Units 08:56 06:33 WBC 13.8 H 13.7 H (4.5-10.0) K/mm3 Hgb 10.4 L 9.3 L (14.0-18.0) g/dL Hct 29.3 L 28.6 L (42.0-52.0) % Plt Count 144 L 164 (150-375) k/mm3 BMP 06/29/25 06/30/25 08:56 06:33 Sodium 132 L 136 L Potassium 3.6 4.1 Chloride 96 L 103 Carbon Dioxide 19 L 22 BUN 59 H D 26 H D Creatinine 6.53 H 3.56 H Glucose 287 H 162 H Calcium 9.4 8.4 Liver Function 06/29/25 06/30/25 Range/Units 08:56 06:33 Total Bilirubin 0.3 0.5 (0.2-1.3) mg/dL AST 25 30 (17-59) U/L ALT 20 15 (6-50) U/L Alkaline Phosphatase 81 64 (38-126) U/L Albumin 4.0 3.7 (3.5-5.1) g/dL
[2025-06-30] MEDS: ASPIRIN 325 MG ENTERIC TABLET PO (10:04)
[2025-06-30] MEDS: cefTRIAXone 1 GM in SODIUM CHLORIDE 0.9% IV 50 ML 100 ML IVPB (10:05)
[2025-06-30] MEDS: FERROUS SULFATE 325 MG TABLET DR 324 MG BY MOUTH (10:05)
[2025-06-30] MEDS: FLECAINIDE ACETATE 100 MG TABLET PO (10:05)
[2025-06-30] MEDS: ESCITALOPRAM OXALATE 5 MG TABLET PO (10:06)
[2025-06-30] MEDS: METOPROLOL SUCCINATE EXT REL 25 MG TABCR PO (10:06)
[2025-06-30] MEDS: TAMSULOSIN HCL 0.4 MG CAPSULE PO (10:06)
--- NOTE | 2025-06-30 12:23 | P.PNNP_ITS ---
Progress Note: A&P Assessment and Plan (1) End stage renal disease: Code(s): N18.6 - End stage renal disease Status: Chronic Assessment and Plan: * normally does home hemodialysis 4x/week * HD yesterday * plan HD tomorrow * follow electrolytes, volume status, and clearance * given recent imaging findings, attempt fluid removal with future dialysis treatments... (2) Diverticulitis: Code(s): K57.92 - Diverticulitis of intestine, part unspecified, without perforation or abscess without bleeding Status: Acute Assessment and Plan: * as suspected from recent CT of A/P: * short segment focal thickening of the ramey of the distal descending colon and proximal sigmoid colon. Differential includes incomplete bowel wall distention, diverticulitis or mass...recommend follow-up to resolution. * repeat CT (06/30): Re-demonstration of the short segment focal thickening of the ramey of the distal descending colon and proximal sigmoid colon * on IV antibiotics * IV anti-emetics * pain medications * follow cultures * continue supportive therapy (3) PAF (paroxysmal atrial fibrillation): Code(s): I48.0 - Paroxysmal atrial fibrillation Status: Chronic Assessment and Plan: * continue rate control strategy * on anticoagulation (4) Anemia: Code(s): D64.9 - Anemia, unspecified Status: Acute Assessment and Plan: * due to ESRD and acute illness * getting Epogen with HD * follow trend of H/H (5) HTN (hypertension): Qualifiers: Hypertension type: unspecified Qualified Code(s): I10 - Essential (primary) hypertension Code(s): I10 - Essential (primary) hypertension Status: Chronic Assessment and Plan: * better control noted * however, suspect abdominal pain/discomfort contributing... 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 L Subjective Date/time seen: 06/30/25 12:23 Interval history: Follow-up for end stage renal disease on hemodialysis. Tolerated dialysis treatment yesterday without any issue or problems; still with significant diffuse abdominal pain but more localized to LLQ with deep palpation; repeat CT scan of A/P done with results noted; no other acute issues/events overnight or earlier this morning. Exam 2 Narrative: General: elderly but WD/WN male in NAD Heart: normal S1 and S2; no rub Lungs: decreased at bases Abdomen: diffuse tenderness in lower quadrants (left > right); nondistended +bowel sounds Extremities: no cyanosis or clubbing; no edema Skin: warm and dry Objective Data Vital Signs Vital Signs: Vital Signs Temp Pulse Resp BP Pulse Ox O2 Del Method O2 Flow Rate 06/30/25 10:06 75 06/30/25 10:05 75 06/30/25 09:58 93 Nasal Cannula 2 06/30/25 06:00 98.5 F 75 16 159/68 H 96 06/29/25 21:37 98.2 F 76 20 154/68 H 100 06/29/25 20:13 80 06/29/25 20:00 100 Nasal Cannula 2 06/29/25 17:10 98.7 F 84 18 164/73 H 06/29/25 17:02 82 167/77 H 06/29/25 17:00 97.6 F 80 18 162/72 H 97 06/29/25 16:45 81 178/77 H 06/29/25 16:30 80 172/72 H Intake/Output Intake/Output: Intake & Output 06/27/25 06/28/25 06/29/25 06/30/25 23:59 23:59 23:59 23:59 Intake Total 2650 1040 Output Total 0 Balance 2650 1040 Meds/Results Medications: Active Medications Generic Name Dose Route Start Last Admin Trade Name Freq PRN Reason Stop Dose Admin Acetaminophen 650 mg 06/29/25 12:42 Acetaminophen 325 Mg Tablet PO Q6H PRN Mild Pain (1-3) or Fever Hydrocodone Bitart/Acetaminophen 1 tab 06/29/25 12:42 Hydrocodone/Acetaminophen (*Crx) 5-325 Mg Tablet PO Q6H PRN Pain Rated 4-6 Amlodipine Besylate 5 mg 06/30/25 09:00 06/30/25 10:04 Amlodipine Besylate 5 Mg Tablet PO 5 mg DAILY SUPA Administration Aspirin 325 mg 06/30/25 09:00 06/30/25 10:04 Aspirin 325 Mg Enteric Tablet PO 325 mg QAM SUPA Administration Dextrose 12.5 gm 06/29/25 12:50 Dextrose 50% 25 Gm/50 Ml Syringe IV PUSH PRN PRN Hypoglycemia Protocol Dicyclomine HCl 20 mg 06/29/25 12:42 Dicyclomine Hcl 10 Mg Capsule PO QID PRN Abdominal Cramping Escitalopram Oxalate 5 mg 06/30/25 09:00 06/30/25 10:06 Escitalopram Oxalate 5 Mg Tablet PO 5 mg DAILY SUPA Administration Ferrous Sulfate 324 mg 06/30/25 09:00 06/30/25 10:05 Ferrous Sulfate [address] BY MOUTH 324 mg DAILY SUPA Administration Flecainide Acetate 100 mg 06/29/25 21:00 06/30/25 10:05 Flecainide Acetate 100 Mg Tablet PO 100 mg Q12H SUPA Administration Glucagon 1 mg 06/29/25 12:50 Glucagon For Inj 1 Mg Vial IM PRN PRN Hypoglycemia Protocol Glucose 15 gm 06/29/25 12:50 Glucose Oral Gel 15 Gm Of Glucse In 37.5 Gm Tube PO PRN PRN Hypoglycemia Protocol Hydromorphone HCl 0.5 mg 06/29/25 10:42 06/30/25 04:48 Hydromorphone Hcl Inj (*Crx) 1 Mg/Ml Syr IV PUSH 0.5 mg Q4H PRN Administration Pain Rated 7-10 Albumin Human 50 mls @ 999 mls/hr 06/29/25 11:31 Albutein IVPB 07/29/25 11:30 Q10M PRN HYPOTENSION Ceftriaxone Sodium 1 gm/ 50 mls @ 100 mls/hr 06/30/25 09:00 06/30/25 10:35 Sodium Chloride IVPB Infused Q24H SUPA Infusion Metronidazole 500 mg in 100 mls @ 100 mls/hr 06/29/25 18:00 06/30/25 12:56 Flagyl 500 Mg/Iso Soln 100 Ml IVPB Infused Q8H SUPA Infusion Dextrose 1,000 mls @ 100 mls/hr 06/29/25 12:50 Dextrose 5% 1,000 Ml IVPB PRN PRN Hypoglycemia Protocol Insulin Aspart 3 - 6 units 06/29/25 17:00 06/30/25 11:53 Insulin Aspart (*Bkc) 100 Units/Ml SUB-Q Not Given TIDWM [facility] Protocol Lidocaine/Prilocaine 1 each 06/29/25 11:33 06/29/25 12:57 Lidocaine/Prilocaine Cream 2.5-2.5% Tube TOPICAL 1 each WITH DIALYSIS PRN Administration for dialysis Protocol Metoprolol Succinate 25 mg 06/30/25 09:00 06/30/25 10:06 Metoprolol Succinate Ext Rel 25 Mg Tabcr PO 25 mg QAM SUPA Administration Morphine Sulfate 2 mg 06/29/25 12:42 06/29/25 17:32 Morphine Sulfate (*Crx) 2 Mg/Ml Inj IV PUSH 2 mg Q4H PRN Administration Pain Rated 7-10 Ondansetron HCl 4 mg 06/29/25 10:42 06/29/25 17:32 Ondansetron Inj 4 Mg/2 Ml Vial IV PUSH 4 mg Q4H PRN Administration Nausea Polyethylene Glycol 17 gm 06/29/25 12:42 Polyethylene Glycol 3350 17 Gm Powd.Pack PO QAM PRN Constipation Tamsulosin HCl 0.4 mg 06/30/25 09:00 06/30/25 10:06 Tamsulosin Hcl 0.4 Mg Capsule PO 0.4 mg DAILY SUPA Administration Radiology Results: ITS Impressions Chest X-Ray 06/29/25 12:15 IMPRESSION: 1. New opacities in the right midlung zone which could represent atelectasis or pneumonia. Abdomen/Pelvis CT 06/30/25 11:54 IMPRESSION: 1. No abscess identified. No free intraperitoneal air identified. 2. Small amount of new nonspecific amount of fat stranding and fluid in the abdomen and pelvis. 3. New small right-sided pleural effusion. 4. New tiny left-sided pleural effusion. 5.There are two new moderate-sized bandlike opacities in the right lower lung and a new small bandlike opacity in the left lower lung. Differential includes atelectasis or pneumonia. Correlate clinically. Recommend follow-up to resolution. 6. Redemonstration of the mild left-sided hydronephrosis and mild left-sided hydroureter. No CT evidence for renal, ureteral or bladder calculi. 7. Slight improvement in the concentric thickening of the ramey of the bladder. Correlate clinically. 8. Redemonstration of the short segment focal thickening of the ramey of the distal descending colon and proximal sigmoid colon. Differential includes incomplete bowel wall distention, diverticulitis or mass. Labs Labs: Laboratory Tests 06/30/25 06:33 06/30/25 06:33 Hemoglobin A1c 5.9 H Calcium 8.4 Phosphorus 4.6 H Magnesium 2.0 Total Bilirubin 0.5 AST 30 ALT 15 Alkaline Phosphatase 64 Total Protein 6.6 Albumin 3.7
[2025-06-30] MEDS: ONDANSETRON INJ 4 MG/2 ML VIAL IV PUSH (17:05)
[2025-06-30] MEDS: MORPHINE SULFATE (*CRX) 2 MG/ML INJ IV PUSH (17:10)
[2025-06-30] MEDS: INSULIN ASPART (*BKC) 100 UNITS/ML SUB-Q (17:11)
--- NOTE | 2025-06-30 20:51 | ECG_ITS ---
Test Date: 2025-06-30 20:55:38 Measurements Intervals [place] Rate: 70 P: 0 [place]: 0 QRS: -85 QRSD: 196 T: -60 QT: 454 QTc: 491 Interpretive Statements JUNCTIONAL ESCAPE RHYTHM RIGHT BUNDLE BRANCH BLOCK LEFT ANTERIOR FASCICULAR BLOCK ABNORMAL ECG Compared to ECG 06/29/2025 09:32:16 SINUS RHYTHM NO LONGER PRESENT RIGHT BUNDLE BRANCH BLOCK NOW PRESENT LEFT ANTERIOR FASCICULAR BLOCK NOW PRESENT Electronically Signed On 07-01-2025 07:16:01 CDT by Nilson Jerez D.O.
[2025-06-30 21:18] LABS: Hematocrit 26.1 % (42.0-52.0); Hemoglobin 8.6 g/dL (14.0-18.0); Immature Granulocyte Percent A 1.3 % (0-0.5); Lymphocytes Absolute Auto 8.01 K/mm3 (0.9-3.2); Mean Corpuscular HGB Conc 33.0 g/dl (32-36); Mean Corpuscular Hemoglobin 32.2 pg (26-34); Mean Corpuscular Volume 97.8 fl (80-100); Nucleated Red Blood Cells Absolute Auto 0.020 K/mm3 (0.0-0.012); Nucleated Red Blood Cells Perc 0.1 % (0.0-0.2); Platelet Count Result 128 k/mm3 (150-375); Red Blood Count 2.67 M/mm3 (4.6-6.20); White Blood Count 16.4 K/mm3 (4.5-10.0)
--- NOTE | 2025-06-30 21:37 | ED.PROCEDURE ---
Procedures Intubation Intubation Date: 06/30/25 Intubation Time: 20:30 Consent: Intubation supervision, procedure conducted by midlevel provider Shirley Hartley. Performed emergently during ongoing CPR A pre-procedural Time-Out was completed immediately before starting the procedure and confirmed: Patient Identification, Site, Procedure, Patient Position and the Availability of Requisite Equipment: Yes Sedative: none Mg given: 0 Mg given: 0 Laryngoscope: fiber optic video scope Assist device used: fiber optic device ET tube size: 7.5 Tube secured depth (cm): 26 Tube secured location: teeth Tube placement confirmation: visualized tube passing through cords, equal breath sounds bilaterally, no breath sounds over epigastrium and confirmation by capnometry Patient tolerated procedure: well and no complications Intubation complications: none Other Procedures Procedure 1: Other Procedure: Procedure: CPR Indication: Cardiopulmonary arrest Narrative: 70-year-old male with history of end-stage renal disease with unwitnessed cardiac arrest in the hospital. Patient was last seen well proxy 15 minutes prior to arrival of shift change nurse who knows that patient was pulseless and apneic. CPR started initially. Asystole on the monitor. BVM ventilations with respiratory therapy at bedside. Continuous CPR with 2 minute pulse checks with Doppler. I wrapped the scene and patient was given in ampules of calcium chloride and to episode of bicarbonate given his history of end-stage renal disease on dialysis with presumptive hyperkalemia as potential source of his cardiopulmonary arrest. Patient received multiple rounds of epinephrine, additional bicarbonate and calcium chloride. Initial rhythm asystole followed by 2 rhythm checks of PE a followed by 1 episode of ventricular tachycardia which was shocked and defibrillated 200 joules followed by 300 mg of IV amiodarone. Patient has retained spontaneous circulation at 8:44 p.m.. Blood pressure 230/110, looks like persistent V-tach on the monitor versus profound hyperkalemia with T-wave elevations and widened QRS. Additional bicarbonate and calcium chloride initiated with reduction in T-wave amplitude and appears to be junctional rhythm on repeat EKG. Blood pressure 190/73 for patient was intubated by midlevel provider under my direct supervision, please see procedure note separately for dictation. Postprocedural chest x-ray shows endotracheal tube in the correct location, white mediastinum with concern for potential aortic pathology given his ventricular tachycardia, wide mediastinum and rhythm changes. Care transitioned to the hospitalist team for transfer to the ICU and remaining workup/ongoing care Critical care time: 35 minutes Critical care is billed exclusive of the separate procedures above.
[2025-06-30] MEDS: FENTANYL 2,500MCG/NS250ML(*CRX 2,500 MCG/250 ML BAG IV CONT (21:38)
[2025-06-30] MEDS: MIDAZOLAM 100MG/NS 100ML(*CRX) 100 MG/100 ML BAG IV CONT (21:39)
[2025-06-30 21:54] LABS: Alveolar/Arterial O2 Gradient 492.4 mmHg; Fractional Inspired Oxygen 100 %; HCO3 ABG 21.8 mEq/l (22.0-26.0); Oxygen Content ABG 12.7 %vol (16.0-22.0); Oxygen Saturation ABG 99.4 % (95.0-100.0); PCO2 ABG 29.4 mmHg (35.0-45.0); PO2 ABG 191.2 mmHg (80.0-100.0); PO2 FiO2 Ratio Arterial Blood 1.91 %
[2025-06-30 22:11] LABS: Alanine Aminotransferase 382 U/L (6-50); Albumin Level 3.1 g/dL (3.5-5.1); Alkaline Phosphatase 63 U/L (38-126); Anion Gap 14 mmol/L (4-12); Aspartate Amino Transferase 484 U/L (17-59); Bilirubin,Total 0.4 mg/dL (0.2-1.3); Blood Urea Nitrogen 33 mg/dL (9-20); Calcium 10.0 mg/dL (8.4-10.2); Carbon Dioxide 23 mmol/L (22-30); Chloride 99 mmol/L (98-107); Estimated CRCL calculation 14 ml/min; Estimated Glomerular Filt Rate 14; Glucose 202 mg/dL (65-110); Magnesium 2.2 mg/dL (1.6-2.3); Potassium 3.7 mmol/L (3.4-5.0); Sodium 136 mmol/L (137-145); Total Protein 5.6 g/dL (6.3-8.2); Troponin I 0.055 ng/mL (0.000-0.034)
[2025-06-30] MEDS: levETIRAcetam 1000MG/NACL100ML 1,000 MG/100 ML BAG 400 MG IVPB (23:40)
[2025-06-30] MEDS: FUROSEMIDE INJ 40 MG/4 ML VIAL IV PUSH (23:59)
[2025-07-01] VITALS (42 sets, daily range): BP systolic 96–154; BP diastolic 38–69; PULSE 43–75; RESP 15–25; TEMP 34.9–36.4; O2SAT 97–100
--- NOTE | 2025-07-01 00:24 | P.CODEBLUE_ITS ---
Code Blue Note Code Blue Note Time Arrived at Code Blue: 2025 Initial Rhythm on Arrival: Asystole Airway Management: No airway on arrival Chest Compressions: In process on arrival to bedside Result of Code Blue: Pt transferred to ICU Cardiac Rhythm Post Code: NSR 60s Code Blue Summary: A code leonarda was called on this pt at 2025, pt was found by staff to be without pulse or spontaneous respirations. He was noted to be sitting on the side of the bed by nursing ancillary staff at shift change, and then found without VS upon their entry into the room. Responding to the code were myself for Hospitalist service and Dr. Silva from ER. High quality resuscitative efforts were performed including CPR and various medications including Epinephrine 1 mg x4 doses, Bicarb 1 amp x4 doses Calcium Chloride 2000 mg x1, Amiodarone 300 mg x1, and a one time shock of energy at 200 joules. Pt's initial Asystole was found on recheck to show PEA, followed again by PEA, and V-tach with T-wave elevations and widened QRS. Pt was intubated using video assisted Glidescope x1 attempt and proctored by Dr. Wallace Silva. The 7.5 ET Tube was secured at the teeth at 26 cm and placement confirmed by capnometry and CO2 color change detector. CXR confirms adequate placement. At 2043, ROSC was ac hieved and pt was immediately taken to ICU, sedation ordered with Fentanyl drip and Versed drip, CTA Chest ordered based upon appearance of widened mediastinum on post intubation CXR and questionable escape rhythm on repeat EKG, and order for Brass Instrument Repair Technician consult was placed.
--- NOTE | 2025-07-01 00:42 | P.RRN_ITS ---
Critical Care Event Note Summary Code activated: Yes Narrative: A code blue was called on this pt at 2025, pt was found by staff to be without pulse or spontaneous respirations. He was noted to be sitting on the side of the bed by nursing ancillary staff at shift change, and then found without VS upon their entry into the room. Responding to the code were myself for Hospitalist service and Dr. Silva from ER. High quality resuscitative efforts were performed including CPR and various medications including Epinephrine 1 mg x4 doses, Bicarb 1 amp x4 doses Calcium Chloride 2000 mg x1, Amiodarone 300 mg x1, and a one time shock of energy at 200 joules. Pt's initial Asystole was found on recheck to show PEA, followed again by PEA, and V-tach with T-wave elevations and widened QRS. Pt was intubated using video assisted Glidescope x1 attempt and proctored by Dr. Wallace Silva. The 7.5 ET Tube was secured at the teeth at 26 cm and placement confirmed by capnometry and CO2 color change detector. CXR confirms adequate placement. At 2043, ROSC was achieved and pt was imm ediately taken to ICU, sedation ordered with Fentanyl drip and Versed drip, CTA Chest ordered based upon appearance of widened mediastinum on post intubation CXR and questionable escape rhythm on repeat EKG, and order for Adolescent Counselor consult was placed. Pt's only access was an 18G in the right hand, and I was able to in one attempt place a peripheral 18G left EJ for CT Scan to be performed. I spoke with Dr. Shabazz, Radiologist at 2214 who told me that she felt as though pt's widened mediastinum was due to his positioning and rotation and that she would rather see another one view chest. This is performed and she commented that there were findings of bilateral large pleural effusions. Lasix 40 mg IVP was given based upon her read. Pt with stable VS, however pupils are now uneven and not reactive. The right pupil is 6 mm and the left pupil is 2 mm and not reactive. I am then made aware that pt started having 'jerking motions' of the entire body that are brief, whole body inclusive and rhythmic. In the interim, the nursing staff reached out to learning engineer and I then spoke with him myself at 0. Dr. Karmally was updated on the pt situation, the objective data thus far and my conversation with Radiologist as well as the new development of the pt having rhythmic jerking. He advised CT Scan of the brain and Keppra to be started. At present time, pt with stable VS and remains on Ventilator with current settings of Tidal volume of 450, 100% FiO2, PEEP 5, and Rate of 18. Pt's Labs are reviewed and he is noted to have a WBC count of 16.4, Cr/BUN of 4.33/33 which is at or similar to pt's previous, magnesium and Calcium are normal, and his troponin is 0.055 which is again consistent with his previous troponin levels. His initial Abg after intubation shows pH of 7.386, PCO2 of 33.7, PO2 of 46.6 and HCO3 is 19.8. Suspect that his decreased PCO2 is due to his bagging and hyperventilation during resuscitative efforts. Will recheck in AM. His Transaminases are also noted to be grossly elevated with AST of 484 and ALT of 382. Suspect either Shock liver from the resuscitation or potential for thrombosis given that pt has hx of fib and is not anticoagulated secondary to his chronic anemia and he has not received Watchman procedure, which makes his risk for thrombosis greater. Will order RUQ US. Deferred administration of Heparin drip at this time pending results of head CT. Pt is started on Keppra and will be treated with Keppra for continued jerking motions. Suspect sequela of CVA or anoxic brain injury. Pt's condition is serious and guarded. Family updated. This case had a high probability of a clinically significant, sudden, or life threatening deterioration of this patient's condition which required my full and direct attention, intervention and personal management of at least 35 minutes to 74 minutes. Critical care time: 30 - 74 mins
[2025-07-01 01:19] LABS: Modified Allen's Test Pass; Site Drawn RIGHT RADIAL
[2025-07-01 01:21] LABS: Arterial Blood Gas Tidal Volume 530 ml; Arterial Blood Gas Ventilator rate 18 /MIN
[2025-07-01] MEDS: metroNIDAZOLE 500 MG/ISO 100ML 500 MG/100 ML BAG 100 MG IVPB ×3 (02:41→17:09)
--- NOTE | 2025-07-01 03:02 | PC.NURSE ---
This patient, Sukhdev Lowery III, was received from [facility] on 06/30/25 at 2110 post cardiac arrest/code blue. Patient/family oriented to unit policies and routines.
--- NOTE | 2025-07-01 03:26 | PC.NURSE ---
Patient unresponsive at 2022, CPR started by this RN and Juana Spears CNA called. Patient received CPR for approximately 15 minutes, ROSC, patient transfered to ICU Bed 6. Family/POA called, informed of situation and room change, [facility]ist spoke with family on phone also at that time.
[2025-07-01 05:43] LABS: Alveolar/Arterial O2 Gradient 403.5 mmHg; Fractional Inspired Oxygen 80 %; HCO3 ABG 25.1 mEq/l (22.0-26.0); Oxygen Content ABG 12.2 %vol (16.0-22.0); Oxygen Saturation ABG 98.7 % (95.0-100.0); PCO2 ABG 36.0 mmHg (35.0-45.0); PO2 ABG 129.1 mmHg (80.0-100.0); PO2 FiO2 Ratio Arterial Blood 1.61 %
[2025-07-01 08:19] LABS: Hematocrit 24.1 % (42.0-52.0); Hemoglobin 8.2 g/dL (14.0-18.0); Immature Granulocyte Percent A 0.3 % (0-0.5); Immature Platelet Fraction Pct 2.3 % (0.9-11.2); Lymphocytes Absolute Auto 3.08 K/mm3 (0.9-3.2); Mean Corpuscular HGB Conc 34.0 g/dl (32-36); Mean Corpuscular Hemoglobin 32.0 pg (26-34); Mean Corpuscular Volume 94.1 fl (80-100); Nucleated Red Blood Cells Absolute Auto 0.000 K/mm3 (0.0-0.012); Nucleated Red Blood Cells Perc 0.0 % (0.0-0.2); Platelet Count Result 112 k/mm3 (150-375); Red Blood Count 2.56 M/mm3 (4.6-6.20); White Blood Count 10.1 K/mm3 (4.5-10.0)
[2025-07-01 08:19] LABS: Fractional Inspired Oxygen 60 %; HCO3 ABG 25.1 mEq/l (22.0-26.0); PCO2 ABG 48.3 mmHg (35.0-45.0)
[2025-07-01] MEDS: INSULIN ASPART (*BKC) 100 UNITS/ML SUB-Q (08:20)
[2025-07-01 08:21] LABS: Modified Allen's Test Pass; Site Drawn LEFT RADIAL
[2025-07-01 08:22] LABS: Ammonia < 9 umol/L (9-30)
[2025-07-01 08:24] LABS: PO2 ABG < 27.0 mmHg (80.0-100.0)
[2025-07-01 08:25] LABS: Modified Allen's Test Pass; Site Drawn LEFT RADIAL
[2025-07-01] MEDS: LORazepam INJ (*CRX) 2 MG/ML VIAL IV PUSH ×2 (08:28→08:45)
--- NOTE | 2025-07-01 08:33 | P.PNGI_ITS ---
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 area director managing (2) Respiratory failure: Code(s): J96.90 - Respiratory failure, unspecified, unspecified whether with hypoxia or hypercapnia Status: Acute Assessment and Plan: intubated (3) Diverticulitis: Code(s): K57.92 - Diverticulitis of intestine, part unspecified, without perforation or abscess without bleeding Status: Acute Assessment and Plan: on abx (4) Generalized abdominal pain: Code(s): R10.84 - Generalized abdominal pain Status: Acute (5) ESRD on hemodialysis: Code(s): N18.6 - End stage renal disease; Z99.2 - Dependence on renal dialysis Status: Acute Subjective Date/time seen: 07/01/25 08:33 Interval history: events noted, patient had cardiac arrest and PEA, now intubated in icu and unresponsive Review of Systems Review of Systems: All systems reviewed & are unremarkable except as noted in HPI and below Exam Const: Other: acutely ill HENMT: Other: ETT in place Neck: Neck: supple Resp: Auscultation: no wheezes Other: intubated GI: GI Palp: Yes Soft to palpation Neuro: Other: unresponsive, myoclonus Objective Data Vital Signs Vital Signs: Vital Signs - 24 hr 06/30/25 09:58 06/30/25 10:05 06/30/25 10:06 Temperature Pulse Rate 75 75 Respiratory Rate Blood Pressure Pulse Oximetry 93 Oxygen Delivery Nasal Cannula Oxygen Flow Rate 2 Fraction of Inspired Oxygen 06/30/25 14:00 06/30/25 21:10 06/30/25 21:10 Temperature 98.2 F 98.1 F Pulse Rate 69 63 Respiratory Rate 18 18 Blood Pressure 152/71 H 112/63 Pulse Oximetry 91 100 Oxygen Delivery Oxygen Flow Rate Fraction of Inspired Oxygen 100 06/30/25 21:20 06/30/25 21:38 06/30/25 21:39 Temperature Pulse Rate 70 63 63 Respiratory Rate 18 18 Blood Pressure Pulse Oximetry 100 Oxygen Delivery Mechanical Ventilation Oxygen Flow Rate Fraction of Inspired Oxygen 100 06/30/25 22:00 06/30/25 22:00 06/30/25 22:00 Temperature Pulse Rate 64 63 64 Respiratory Rate 18 18 Blood Pressure Pulse Oximetry Oxygen Delivery Oxygen Flow Rate Fraction of Inspired Oxygen 06/30/25 22:43 06/30/25 23:40 07/01/25 00:00 Temperature Pulse Rate 73 60 Respiratory Rate 22 H 18 Blood Pressure Pulse Oximetry 100 98 Oxygen Delivery Mechanical Ventilation Mechanical Ventilation Oxygen Flow Rate Fraction of Inspired Oxygen 100 100 07/01/25 00:00 07/01/25 00:00 07/01/25 00:00 Temperature Pulse Rate 65 65 65 Respiratory Rate 18 18 Blood Pressure Pulse Oximetry Oxygen Delivery Oxygen Flow Rate Fraction of Inspired Oxygen 07/01/25 00:00 07/01/25 01:08 07/01/25 02:00 Temperature Pulse Rate 63 65 Respiratory Rate 16 21 H Blood Pressure Pulse Oximetry Oxygen Delivery Oxygen Flow Rate Fraction of Inspired Oxygen 100 07/01/25 02:00 07/01/25 02:00 07/01/25 02:00 Temperature 97.6 F Pulse Rate 65 69 65 Respiratory Rate 21 H 18 Blood Pressure 131/69 Pulse Oximetry 100 Oxygen Delivery Oxygen Flow Rate Fraction of Inspired Oxygen 07/01/25 02:55 07/01/25 04:00 07/01/25 04:00 Temperature 95.3 F L Pulse Rate 58 L 54 L Respiratory Rate 25 H Blood Pressure 124/61 Pulse Oximetry 100 100 Oxygen Delivery Mechanical Ventilation Oxygen Flow Rate Fraction of Inspired Oxygen 80 100 07/01/25 04:00 07/01/25 04:00 07/01/25 05:45 Temperature Pulse Rate 64 56 L Respiratory Rate 18 Blood Pressure Pulse Oximetry 98 100 Oxygen Delivery Mechanical Ventilation Mechanical Ventilation Oxygen Flow Rate Fraction of Inspired Oxygen 60 80 07/01/25 06:00 07/01/25 06:00 07/01/25 07:57 Temperature 96.7 F L Pulse Rate 75 56 L 68 Respiratory Rate 18 Blood Pressure 138/53 L Pulse Oximetry 97 Oxygen Delivery Mechanical Ventilation Oxygen Flow Rate Fraction of Inspired Oxygen 60 Intake/Output Intake/Output: Intake & Output 06/28/25 06/29/25 06/30/25 07/01/25 23:59 23:59 23:59 23:59 Intake Total 2650 1582.0 131.5 Output Total 0 0 Balance 2650 1582.0 131.5 Meds/Results Medications: Active Medications Generic Name Dose Route Start Last Admin Trade Name Kaushik PRN Reason Stop Dose Admin Acetaminophen 650 mg 06/29/25 12:42 Acetaminophen 325 Mg Tablet PO Q6H PRN Mild Pain (1-3) or Fever Amlodipine Besylate 5 mg 06/30/25 09:00 06/30/25 10:04 Amlodipine Besylate 5 Mg Tablet PO 5 mg DAILY SUPA Administration Aspirin 325 mg 06/30/25 09:00 06/30/25 10:04 Aspirin 325 Mg Enteric Tablet PO 325 mg QAM SUPA Administration Dextrose 12.5 gm 06/29/25 12:50 Dextrose 50% 25 Gm/50 Ml Syringe IV PUSH PRN PRN Hypoglycemia Protocol Dicyclomine HCl 20 mg 06/29/25 12:42 Dicyclomine Hcl 10 Mg Capsule PO QID PRN Abdominal Cramping Epoetin Christian-epbx 10,000 units 07/01/25 18:27 Epoetin Christian-Epbx 10,000 Units/Ml Vial IV PUSH 07/01/25 18:28 ONCE ONE Escitalopram Oxalate 5 mg 06/30/25 09:00 06/30/25 10:06 Escitalopram Oxalate 5 Mg Tablet PO 5 mg DAILY SUPA Administration Ferrous Sulfate 324 mg 06/30/25 09:00 06/30/25 10:05 Ferrous Sulfate [address] BY MOUTH 324 mg DAILY USPA Administration Flecainide Acetate 100 mg 06/29/25 21:00 06/30/25 21:30 Flecainide Acetate 100 Mg Tablet PO Not Given Q12H [facility] Furosemide 40 mg 07/01/25 09:00 Furosemide Inj 40 Mg/4 Ml Vial IV PUSH BID [facility] Glucagon 1 mg 06/29/25 12:50 Glucagon For Inj 1 Mg Vial IM PRN PRN Hypoglycemia Protocol Glucagon 1 mg 07/01/25 02:06 Glucagon For Inj 1 Mg Vial IM PRN PRN Hypoglycemia Protocol Glucose 15 gm 06/29/25 12:50 Glucose Oral Gel 15 Gm Of Glucse In 37.5 Gm Tube PO PRN PRN Hypoglycemia Protocol Albumin Human 50 mls @ 999 mls/hr 06/29/25 11:31 Albutein IVPB 07/29/25 11:30 Q10M PRN HYPOTENSION Metronidazole 500 mg in 100 mls @ 100 mls/hr 06/29/25 18:00 07/01/25 03:41 Flagyl 500 Mg/Iso Soln 100 Ml IVPB Infused Q8H SUPA Infusion Dextrose 1,000 mls @ 100 mls/hr 06/29/25 12:50 Dextrose 5% 1,000 Ml IVPB PRN PRN Hypoglycemia Protocol Fentanyl Citrate 2,500 mcg in 250 mls @ 5 mls/hr 06/30/25 21:15 07/01/25 02:00 Fentanyl 2,500 Mcg/Ns 250 Ml IV CONT 50 mcg/hr .Q50H SUPA 5 mls/hr Titration Protocol 50 MCG/HR Midazolam HCl 100 mg in 100 mls @ 7 mls/hr 06/30/25 21:15 07/01/25 02:00 Versed 100 Mg/Ns 100 Ml IV CONT 7 mg/hr .[id number] SUPA 7 mls/hr Titration Protocol 7 MG/HR Levetiracetam 500 mg in 100 mls @ 400 mls/hr 07/01/25 09:00 Keppra Iv IVPB Q12HR SUPA Valproate Sodium 250 mg/ 52.5 mls @ 52.5 mls/hr 07/01/25 08:00 Dextrose IVPB Q6H [facility] Cefepime HCl 1 gm/ Sodium 50 mls @ 100 mls/hr 07/01/25 14:00 Chloride IVPB Q24H [facility] Insulin Aspart 3 - 6 units 07/01/25 06:00 07/01/25 08:20 Insulin Aspart (*Bkc) 100 Units/Ml SUB-Q 3 units Q6HR [facility] Administration Protocol Lidocaine/Prilocaine 1 each 06/29/25 11:33 06/29/25 12:57 Lidocaine/Prilocaine Cream 2.5-2.5% Tube TOPICAL 1 each WITH DIALYSIS PRN Administration for dialysis Protocol Lorazepam 2 mg 07/01/25 08:26 Lorazepam Inj (*Crx) 2 Mg/Ml Vial IV PUSH 07/01/25 08:27 ONCE ONE Metoprolol Succinate 25 mg 06/30/25 09:00 06/30/25 10:06 Metoprolol Succinate Ext Rel 25 Mg Tabcr PO 25 mg QAM SUPA Administration Ondansetron HCl 4 mg 06/29/25 10:42 06/30/25 17:05 Ondansetron Inj 4 Mg/2 Ml Vial IV PUSH 4 mg Q4H PRN Administration Nausea Polyethylene Glycol 17 gm 06/29/25 12:42 Polyethylene Glycol 3350 17 Gm Powd.Pack PO QAM PRN Constipation Tamsulosin HCl 0.4 mg 06/30/25 09:00 06/30/25 10:06 Tamsulosin Hcl 0.4 Mg Capsule PO 0.4 mg DAILY SUPA Administration Radiology Results: ITS Impressions Abdomen/Pelvis CT 06/30/25 11:54 IMPRESSION: 1. No abscess identified. No free intraperitoneal air identified. 2. Small amount of new nonspecific amount of fat stranding and fluid in the abdomen and pelvis. 3. New small right-sided pleural effusion. 4. New tiny left-sided pleural effusion. 5.There are two new moderate-sized bandlike opacities in the right lower lung and a new small bandlike opacity in the left lower lung. Differential includes atelectasis or pneumonia. Correlate clinically. Recommend follow-up to resolution. 6. Redemonstration of the mild left-sided hydronephrosis and mild left-sided hydroureter. No CT evidence for renal, ureteral or bladder calculi. 7. Slight improvement in the concentric thickening of the ramey of the bladder. Correlate clinically. 8. Redemonstration of the short segment focal thickening of the ramey of the distal descending colon and proximal sigmoid colon. Differential includes incomplete bowel wall distention, diverticulitis or mass. Chest CTA 06/30/25 22:43 IMPRESSION: No pulmonary embolus. No thoracic aortic dissection or dilatation. Large bilateral pleural effusions, right greater than left Abdomen X-Ray 07/01/25 07:07 IMPRESSION: 1. Orogastric tube in stomach. 2. Small right pleural effusion with atelectasis and/or pneumonia in the bilateral lower lung zones. Chest X-Ray 07/01/25 07:15 IMPRESSION: 1. Endotracheal tube tip 3.7 cm above the socorro. 2. Small right pleural effusion with opacities in bilateral lower lung zones which could represent atelectasis or pneumonia. Head CT 07/01/25 08:10 IMPRESSION: 1. 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 No acute intracranial process. Labs Labs: Laboratory Results - last 24 hr 06/30/25 06/30/25 06/30/25 06:33 11:35 16:43 WBC RBC Hgb Hct MCV MCH MCHC RDW Plt Count MPV Immature Gran % (Auto) Neut % (Auto) Lymph % (Auto) Glades % (Auto) Eos % (Auto) Baso % (Auto) Lymph # (Auto) Glades # (Auto) Eos # (Auto) Baso # (Auto) Abs Immat Gran (auto) Absolute Neuts (auto) Absolute Nucleated RBC Nucleated RBC % Puncture Site ABG pH ABG pCO2 ABG pO2 ABG PO2/FiO2 Ratio ABG HCO3 ABG O2 Saturation ABG O2 Content ABG Base Excess A-a Gradient Oxyhemoglobin Total Hemoglobin O2 Delivery Device O2 Liters/Min Minute Volume Vent Rate Vent Mode FiO2 Tidal Volume PEEP Peak Inspir Pressure Pressure Support Sodium Potassium Chloride Carbon Dioxide Anion Gap BUN Creatinine Estim Creat Clear Calc Estimated GFR Glucose POC Capillary Glucose 174 H 212 H Hemoglobin A1c 5.9 H Lactic Acid Calcium Magnesium Total Bilirubin AST ALT Alkaline Phosphatase Ammonia Troponin I Total Protein Albumin 06/30/25 06/30/25 06/30/25 20:23 21:09 21:48 WBC 16.4 H RBC 2.67 L Hgb 8.6 L Hct 26.1 L MCV 97.8 MCH 32.2 MCHC 33.0 RDW 14.1 Plt Count 128 L MPV 9.0 Immature Gran % (Auto) 1.3 H Neut % (Auto) 46.0 Lymph % (Auto) 48.9 H Glades % (Auto) 3.5 Eos % (Auto) 0.1 Baso % (Auto) 0.2 Lymph # (Auto) 8.01 H Glades # (Auto) 0.6 Eos # (Auto) 0.0 Baso # (Auto) 0.0 Abs Immat Gran (auto) 0.22 H Absolute Neuts (auto) 7.5 H Absolute Nucleated RBC 0.020 H Nucleated RBC % 0.1 Puncture Site Right radial ABG pH 7.487 H ABG pCO2 29.4 L ABG pO2 191.2 H ABG PO2/FiO2 Ratio 1.91 ABG HCO3 21.8 L ABG O2 Saturation 99.4 ABG O2 Content 12.7 L ABG Base Excess -1.1 A-a Gradient 492.4 Oxyhemoglobin 97.7 Total Hemoglobin 8.9 L O2 Delivery Device Ventilator O2 Liters/Min Not Reportable Minute Volume Not Reportable Vent Rate 18 Vent Mode Assist control FiO2 100 Tidal Volume 530 PEEP 5 Peak Inspir Pressure Not Reportable Pressure Support Not Reportable Sodium 136 L Potassium 3.7 Chloride 99 Carbon Dioxide 23 Anion Gap 14 H BUN 33 H Creatinine 4.33 H Estim Creat Clear Calc 14 Estimated GFR 14 L Glucose 202 H POC Capillary Glucose 149 H Hemoglobin A1c Lactic Acid Calcium 10.0 Magnesium 2.2 Total Bilirubin 0.4 AST 484 H ALT 382 H Alkaline Phosphatase 63 Ammonia Troponin I 0.055 H* Total Protein 5.6 L Albumin 3.1 L 07/01/25 07/01/25 07/01/25 03:59 05:29 06:32 WBC RBC Hgb Hct MCV MCH MCHC RDW Plt Count MPV Immature Gran % (Auto) Neut % (Auto) Lymph % (Auto) Glades % (Auto) Eos % (Auto) Baso % (Auto) Lymph # (Auto) Glades # (Auto) Eos # (Auto) Baso # (Auto) Abs Immat Gran (auto) Absolute Neuts (auto) Absolute Nucleated RBC Nucleated RBC % Puncture Site Left radial ABG pH 7.462 H ABG pCO2 36.0 ABG pO2 129.1 H ABG PO2/FiO2 Ratio 1.61 ABG HCO3 25.1 ABG O2 Saturation 98.7 ABG O2 Content 12.2 L ABG Base Excess 1.4 A-a Gradient 403.5 Oxyhemoglobin 97.3 Total Hemoglobin 8.7 L O2 Delivery Device Ventilator O2 Liters/Min 60.0 Minute Volume Vent Rate Vent Mode FiO2 80 Tidal Volume PEEP Peak Inspir Pressure Pressure Support Sodium Potassium Chloride Carbon Dioxide Anion Gap BUN Creatinine Estim Creat Clear Calc Estimated GFR Glucose POC Capillary Glucose 202 H Hemoglobin A1c Lactic Acid 2.2 H 2.2 H Calcium Magnesium Total Bilirubin AST ALT Alkaline Phosphatase Ammonia Troponin I Total Protein Albumin 07/01/25 07/01/25 07:33 07:45 WBC RBC Hgb Hct MCV MCH MCHC RDW Plt Count MPV Immature Gran % (Auto) Neut % (Auto) Lymph % (Auto) Glades % (Auto) Eos % (Auto) Baso % (Auto) Lymph # (Auto) Glades # (Auto) Eos # (Auto) Baso # (Auto) Abs Immat Gran (auto) Absolute Neuts (auto) Absolute Nucleated RBC Nucleated RBC % Puncture Site Left radial ABG pH 7.333 L ABG pCO2 48.3 H ABG pO2 < 27.0 L* ABG PO2/FiO2 Ratio ABG HCO3 25.1 ABG O2 Saturation ABG O2 Content ABG Base Excess -0.9 A-a Gradient Oxyhemoglobin 25.7 L* Total Hemoglobin 8.4 L O2 Delivery Device Ventilator O2 Liters/Min 60.0 Minute Volume Vent Rate Vent Mode FiO2 60 Tidal Volume PEEP Peak Inspir Pressure Pressure Support Sodium Potassium Chloride Carbon Dioxide Anion Gap BUN Creatinine Estim Creat Clear Calc Estimated GFR Glucose POC Capillary Glucose Hemoglobin A1c Lactic Acid 1.8 Calcium Magnesium Total Bilirubin AST ALT Alkaline Phosphatase Ammonia < 9 L Troponin I Total Protein Albumin
[2025-07-01 08:39] LABS: Alanine Aminotransferase 359 U/L (6-50); Albumin Level 3.3 g/dL (3.5-5.1); Alkaline Phosphatase 52 U/L (38-126); Anion Gap 10 mmol/L (4-12); Aspartate Amino Transferase 389 U/L (17-59); Bilirubin,Total 0.7 mg/dL (0.2-1.3); Blood Urea Nitrogen 43 mg/dL (9-20); Calcium 8.9 mg/dL (8.4-10.2); Carbon Dioxide 24 mmol/L (22-30); Chloride 100 mmol/L (98-107); Estimated CRCL calculation 13 ml/min; Estimated Glomerular Filt Rate 12; Glucose 179 mg/dL (65-110); Magnesium 2.1 mg/dL (1.6-2.3); Potassium 4.1 mmol/L (3.4-5.0); Sodium 134 mmol/L (137-145); Total Protein 5.8 g/dL (6.3-8.2)
[2025-07-01 08:43] LABS: Lipase < 10 U/L (23-300)
[2025-07-01] MEDS: ROCURONIUM BROMIDE 50 MG/5 ML VIAL IV PUSH (08:49)
[2025-07-01 08:56] LABS: Troponin I 0.464 ng/mL (0.000-0.034)
[2025-07-01] MEDS: VALPROATE SODIUM INJ 250 MG in DEXTROSE 5% IN WATER 50 ML 52.5 MG IVPB (09:13)
[2025-07-01 09:17] LABS: Partial Thromboplastin Time 39.1 Seconds (22.3-36.8)
[2025-07-01 09:38] LABS: Alveolar/Arterial O2 Gradient 292.0 mmHg; Fractional Inspired Oxygen 60 %; HCO3 ABG 23.9 mEq/l (22.0-26.0); Oxygen Content ABG 10.9 %vol (16.0-22.0); Oxygen Saturation ABG 98.6 % (95.0-100.0); PCO2 ABG 27.3 mmHg (35.0-45.0); PO2 ABG 111.1 mmHg (80.0-100.0); PO2 FiO2 Ratio Arterial Blood 1.85 %
[2025-07-01 09:42] LABS: Arterial Blood Gas Ventilator rate 18 /MIN; Site Drawn ARTLINE
[2025-07-01 09:42] LABS: MRSA (PCR) NOT DETECTED (NOT DETECTE)
[2025-07-01 09:44] LABS: Arterial Blood Gas Tidal Volume 450 ml
[2025-07-01] MEDS: levETIRAcetam 500MG/NACL 100ML 500 MG/100 ML BAG 400 MG IVPB ×2 (09:47→20:23)
[2025-07-01] MEDS: LORazepam INJ (*CRX) 2 MG/ML VIAL 4 MG IV PUSH (09:52)
--- NOTE | 2025-07-01 11:00 | P.PNNP_ITS ---
Progress Note: A&P Assessment and Plan (1) End stage renal disease: Code(s): N18.6 - End stage renal disease Status: Chronic Assessment and Plan: * normally does home hemodialysis 4x/week * HD * His numbers are okay today. * Undergoing cooling protocol. * Electrolytes look okay * Volume status looks okay * Chest x-ray shows small process in the right base. * Will hold off on dialysis today. * Discussed with Dr. Angeles chacon (2) Diverticulitis: Code(s): K57.92 - Diverticulitis of intestine, part unspecified, without perforation or abscess without bleeding Status: Acute Assessment and Plan: * as suspected from recent CT of A/P: * short segment focal thickening of the ramey of the distal descending colon and proximal sigmoid colon. Differential includes incomplete bowel wall distention, diverticulitis or mass...recommend follow-up to resolution. * repeat CT (06/30): Re-demonstration of the short segment focal thickening of the ramey of the distal descending colon and proximal sigmoid colon * on IV antibiotics * Antibiotics being changed to cefepime. He received a 1g load and will give 1g after each dialysis. * IV anti-emetics * pain medications * follow cultures * continue supportive therapy (3) PAF (paroxysmal atrial fibrillation): Code(s): I48.0 - Paroxysmal atrial fibrillation Status: Chronic Assessment and Plan: * Heart rate in the 50s and 60s * on anticoagulation * Amiodarone and metoprolol are held (4) Anemia: Code(s): D64.9 - Anemia, unspecified Status: Acute Assessment and Plan: * due to ESRD and acute illness * getting Epogen with HD * Hemoglobin down a little bit. 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 Subjective Date/time seen: 07/01/25 11:00 Interval history: Sukhdev is in the ICU now. He had a cardiorespiratory arrest last evening. Continues to have seizures. On the ventilator and undergoing cooling protocol Exam Narrative: WDWN with constant movements suggestive of seizures on the ventilator. skin no rash head ncat lungs clear cor reg no rub abd BS+ nontender and soft ext no edema. Neuro nonfocal Objective Data Vital Signs Vital Signs: Vital Signs - 24 hr 06/30/25 14:00 06/30/25 21:10 06/30/25 21:10 Temperature 98.2 F 98.1 F Pulse Rate 69 63 Respiratory Rate 18 18 Blood Pressure 152/71 H 112/63 Pulse Oximetry 91 100 Oxygen Delivery Fraction of Inspired Oxygen 100 06/30/25 21:20 06/30/25 21:38 06/30/25 21:39 Temperature Pulse Rate 70 63 63 Respiratory Rate 18 18 Blood Pressure Pulse Oximetry 100 Oxygen Delivery Mechanical Ventilation Fraction of Inspired Oxygen 100 06/30/25 22:00 06/30/25 22:00 06/30/25 22:00 Temperature Pulse Rate 64 63 64 Respiratory Rate 18 18 Blood Pressure Pulse Oximetry Oxygen Delivery Fraction of Inspired Oxygen 06/30/25 22:43 06/30/25 23:40 07/01/25 00:00 Temperature Pulse Rate 73 60 Respiratory Rate 22 H 18 Blood Pressure Pulse Oximetry 100 98 Oxygen Delivery Mechanical Ventilation Mechanical Ventilation Fraction of Inspired Oxygen 100 100 07/01/25 00:00 07/01/25 00:00 07/01/25 00:00 Temperature Pulse Rate 65 65 65 Respiratory Rate 18 18 Blood Pressure Pulse Oximetry Oxygen Delivery Fraction of Inspired Oxygen 07/01/25 00:00 07/01/25 01:08 07/01/25 02:00 Temperature Pulse Rate 63 65 Respiratory Rate 16 21 H Blood Pressure Pulse Oximetry Oxygen Delivery Fraction of Inspired Oxygen 100 07/01/25 02:00 07/01/25 02:00 07/01/25 02:00 Temperature 97.6 F Pulse Rate 65 69 65 Respiratory Rate 21 H 18 Blood Pressure 131/69 Pulse Oximetry 100 Oxygen Delivery Fraction of Inspired Oxygen 07/01/25 02:55 07/01/25 04:00 07/01/25 04:00 Temperature 95.3 F L Pulse Rate 58 L 54 L Respiratory Rate 25 H Blood Pressure 124/61 Pulse Oximetry 100 100 Oxygen Delivery Mechanical Ventilation Fraction of Inspired Oxygen 80 100 07/01/25 04:00 07/01/25 04:00 07/01/25 05:45 Temperature Pulse Rate 64 56 L Respiratory Rate 18 Blood Pressure Pulse Oximetry 98 100 Oxygen Delivery Mechanical Ventilation Mechanical Ventilation Fraction of Inspired Oxygen 60 80 07/01/25 06:00 07/01/25 06:00 07/01/25 07:57 Temperature 96.7 F L Pulse Rate 75 56 L 68 Respiratory Rate 18 Blood Pressure 138/53 L Pulse Oximetry 97 Oxygen Delivery Mechanical Ventilation Fraction of Inspired Oxygen 60 07/01/25 08:00 07/01/25 10:00 Temperature 96.5 F L 96.9 F L Pulse Rate 67 57 L Respiratory Rate 21 H 16 Blood Pressure 111/66 135/48 L Pulse Oximetry 99 100 Oxygen Delivery Fraction of Inspired Oxygen Intake/Output Intake/Output: Intake & Output 06/28/25 06/29/25 06/30/25 07/01/25 23:59 23:59 23:59 23:59 Intake Total 2650 1582.0 231.5 Output Total 0 0 Balance 2650 1582.0 231.5 Meds/Results Medications: Active Medications Generic Name Dose Route Start Last Admin Trade Name Freq PRN Reason Stop Dose Admin Acetaminophen 650 mg 06/29/25 12:42 Acetaminophen 325 Mg Tablet PO Q6H PRN Mild Pain (1-3) or Fever Amlodipine Besylate 5 mg 06/30/25 09:00 06/30/25 10:04 Amlodipine Besylate 5 Mg Tablet PO 5 mg DAILY SUPA Administration Aspirin 325 mg 06/30/25 09:00 06/30/25 10:04 Aspirin 325 Mg Enteric Tablet PO 325 mg QAM SUPA Administration Dextrose 12.5 gm 06/29/25 12:50 Dextrose 50% 25 Gm/50 Ml Syringe IV PUSH PRN PRN Hypoglycemia Protocol Dicyclomine HCl 20 mg 06/29/25 12:42 Dicyclomine Hcl 10 Mg Capsule PO QID PRN Abdominal Cramping Epoetin Christian-epbx 10,000 units 07/01/25 18:27 Epoetin Christian-Epbx 10,000 Units/Ml Vial IV PUSH 07/01/25 18:28 ONCE ONE Escitalopram Oxalate 5 mg 06/30/25 09:00 06/30/25 10:06 Escitalopram Oxalate 5 Mg Tablet PO 5 mg DAILY SUPA Administration Ferrous Sulfate 324 mg 06/30/25 09:00 06/30/25 10:05 Ferrous Sulfate [address] BY MOUTH 324 mg DAILY SUPA Administration Flecainide Acetate 100 mg 06/29/25 21:00 06/30/25 21:30 Flecainide Acetate 100 Mg Tablet PO Not Given Q12H SUPA Furosemide 40 mg 07/01/25 09:00 Furosemide Inj 40 Mg/4 Ml Vial IV PUSH BID SUPA Glucagon 1 mg 06/29/25 12:50 Glucagon For Inj 1 Mg Vial IM PRN PRN Hypoglycemia Protocol Glucagon 1 mg 07/01/25 02:06 Glucagon For Inj 1 Mg Vial IM PRN PRN Hypoglycemia Protocol Glucose 15 gm 06/29/25 12:50 Glucose Oral Gel 15 Gm Of Glucse In 37.5 Gm Tube PO PRN PRN Hypoglycemia Protocol Albumin Human 50 mls @ 999 mls/hr 06/29/25 11:31 Albutein IVPB 07/29/25 11:30 Q10M PRN HYPOTENSION Metronidazole 500 mg in 100 mls @ 100 mls/hr 06/29/25 18:00 07/01/25 09:47 Flagyl 500 Mg/Iso Soln 100 Ml IVPB 100 mls/hr Q8H SUPA Administration Dextrose 1,000 mls @ 100 mls/hr 06/29/25 12:50 Dextrose 5% 1,000 Ml IVPB PRN PRN Hypoglycemia Protocol Fentanyl Citrate 2,500 mcg in 250 mls @ 5 mls/hr 06/30/25 21:15 07/01/25 02:00 Fentanyl 2,500 Mcg/Ns 250 Ml IV CONT 50 mcg/hr .Q50H SUPA 5 mls/hr Titration Protocol 50 MCG/HR Midazolam HCl 100 mg in 100 mls @ 7 mls/hr 06/30/25 21:15 07/01/25 02:00 Versed 100 Mg/Ns 100 Ml IV CONT 7 mg/hr .[id number] SUPA 7 mls/hr Titration Protocol 7 MG/HR Levetiracetam 500 mg in 100 mls @ 400 mls/hr 07/01/25 09:00 07/01/25 10:00 Keppra Iv IVPB Infused Q12HR [facility] Infusion Cefepime HCl 1 gm/ Sodium 50 mls @ 100 mls/hr 07/01/25 14:00 Chloride IVPB Q24H SUPA Valproate Sodium 1,000 mg/ 60 mls @ 52.5 mls/hr 07/01/25 17:00 Dextrose IVPB Q8H [facility] Cisatracurium Besylate 200 mg/ 100 mls @ 7.407 mls/hr 07/01/25 10:55 Sodium Chloride IV CONT .[id number] [facility] Protocol 3 MCG/KG/MIN Insulin Aspart 3 - 6 units 07/01/25 06:00 07/01/25 08:20 Insulin Aspart (*Bkc) 100 Units/Ml SUB-Q 3 units Q6HR [facility] Administration Protocol Lidocaine/Prilocaine 1 each 06/29/25 11:33 06/29/25 12:57 Lidocaine/Prilocaine Cream 2.5-2.5% Tube TOPICAL 1 each WITH DIALYSIS PRN Administration for dialysis Protocol Metoprolol Succinate 25 mg 06/30/25 09:00 06/30/25 10:06 Metoprolol Succinate Ext Rel 25 Mg Tabcr PO 25 mg QAM [facility] Administration Multi-Ingred Cream/Lotion/Oil/Oint 1 applic 07/01/25 11:00 Mineral Oil/White Petrolatum Ointment EACH EYE Q12HR [facility] Ondansetron HCl 4 mg 06/29/25 10:42 06/30/25 17:05 Ondansetron Inj 4 Mg/2 Ml Vial IV PUSH 4 mg Q4H PRN Administration Nausea Polyethylene Glycol 17 gm 06/29/25 12:42 Polyethylene Glycol 3350 17 Gm Powd.Pack PO QAM PRN Constipation Sodium Chloride 10 ml 07/01/25 14:00 Central Line Flush IV PUSH Q8HR [facility] Sodium Chloride 20 ml 07/01/25 09:09 Central Line Flush IV PUSH PRN PRN after blood draws Tamsulosin HCl 0.4 mg 08/15/25 09:00 06/30/25 10:06 Tamsulosin Hcl 0.4 Mg Capsule PO 0.4 mg DAILY SUPA Administration Radiology Results: ITS Impressions Abdomen/Pelvis CT 06/30/25 11:54 IMPRESSION: 1. No abscess identified. No free intraperitoneal air identified. 2. Small amount of new nonspecific amount of fat stranding and fluid in the abdomen and pelvis. 3. New small right-sided pleural effusion. 4. New tiny left-sided pleural effusion. 5.There are two new moderate-sized bandlike opacities in the right lower lung and a new small bandlike opacity in the left lower lung. Differential includes atelectasis or pneumonia. Correlate clinically. Recommend follow-up to resolution. 6. Redemonstration of the mild left-sided hydronephrosis and mild left-sided hydroureter. No CT evidence for renal, ureteral or bladder calculi. 7. Slight improvement in the concentric thickening of the ramey of the bladder. Correlate clinically. 8. Redemonstration of the short segment focal thickening of the ramey of the distal descending colon and proximal sigmoid colon. Differential includes incomplete bowel wall distention, diverticulitis or mass. Chest CTA 06/30/25 22:43 IMPRESSION: No pulmonary embolus. No thoracic aortic dissection or dilatation. Large bilateral pleural effusions, right greater than left Abdomen X-Ray 07/01/25 07:07 IMPRESSION: 1. Orogastric tube in stomach. 2. Small right pleural effusion with atelectasis and/or pneumonia in the bilateral lower lung zones. Chest X-Ray 07/01/25 07:15 IMPRESSION: 1. Endotracheal tube tip 3.7 cm above the socorro. 2. Small right pleural effusion with opacities in bilateral lower lung zones which could represent atelectasis or pneumonia. Head CT 07/01/25 08:10 IMPRESSION: 1. 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 No acute intracranial process. Labs Labs: Laboratory Results - last 24 hr 06/30/25 06/30/25 06/30/25 11:35 16:43 20:23 WBC RBC Hgb Hct MCV MCH MCHC RDW Plt Count MPV Immature Gran % (Auto) Neut % (Auto) Lymph % (Auto) Mcdonald % (Auto) Eos % (Auto) Baso % (Auto) Lymph # (Auto) Mcdonald # (Auto) Eos # (Auto) Baso # (Auto) Abs Immat Gran (auto) Absolute Neuts (auto) Absolute Nucleated RBC Nucleated RBC % % Immature Plt Fraction APTT Puncture Site ABG pH ABG pCO2 ABG pO2 ABG PO2/FiO2 Ratio ABG HCO3 ABG O2 Saturation ABG O2 Content ABG Base Excess A-a Gradient Oxyhemoglobin Total Hemoglobin O2 Delivery Device O2 Liters/Min Minute Volume Vent Rate Vent Mode FiO2 Tidal Volume PEEP Peak Inspir Pressure Pressure Support Sodium Potassium Chloride Carbon Dioxide Anion Gap BUN Creatinine Estim Creat Clear Calc Estimated GFR Glucose POC Capillary Glucose 174 H 212 H 149 H Lactic Acid Calcium Phosphorus Magnesium Total Bilirubin AST ALT Alkaline Phosphatase Ammonia Troponin I Total Protein Albumin Lipase Nasal MRSA (PCR) 06/30/25 06/30/25 07/01/25 21:09 21:48 03:59 WBC 16.4 H RBC 2.67 L Hgb 8.6 L Hct 26.1 L MCV 97.8 MCH 32.2 MCHC 33.0 RDW 14.1 Plt Count 128 L MPV 9.0 Immature Gran % (Auto) 1.3 H Neut % (Auto) 46.0 Lymph % (Auto) 48.9 H Mcdonald % (Auto) 3.5 Eos % (Auto) 0.1 Baso % (Auto) 0.2 Lymph # (Auto) 8.01 H Mcdonald # (Auto) 0.6 Eos # (Auto) 0.0 Baso # (Auto) 0.0 Abs Immat Gran (auto) 0.22 H Absolute Neuts (auto) 7.5 H Absolute Nucleated RBC 0.020 H Nucleated RBC % 0.1 % Immature Plt Fraction APTT Puncture Site Right radial ABG pH 7.487 H ABG pCO2 29.4 L ABG pO2 191.2 H ABG PO2/FiO2 Ratio 1.91 ABG HCO3 21.8 L ABG O2 Saturation 99.4 ABG O2 Content 12.7 L ABG Base Excess -1.1 A-a Gradient 492.4 Oxyhemoglobin 97.7 Total Hemoglobin 8.9 L O2 Delivery Device Ventilator O2 Liters/Min Not Reportable Minute Volume Not Reportable Vent Rate 18 Vent Mode Assist control FiO2 100 Tidal Volume 530 PEEP 5 Peak Inspir Pressure Not Reportable Pressure Support Not Reportable Sodium 136 L Potassium 3.7 Chloride 99 Carbon Dioxide 23 Anion Gap 14 H BUN 33 H Creatinine 4.33 H Estim Creat Clear Calc 14 Estimated GFR 14 L Glucose 202 H POC Capillary Glucose Lactic Acid 2.2 H Calcium 10.0 Phosphorus Magnesium 2.2 Total Bilirubin 0.4 AST 484 H ALT 382 H Alkaline Phosphatase 63 Ammonia Troponin I 0.055 H* Total Protein 5.6 L Albumin 3.1 L Lipase Nasal MRSA (PCR) 07/01/25 07/01/25 07/01/25 05:29 06:32 07:33 WBC RBC Hgb Hct MCV MCH MCHC RDW Plt Count MPV Immature Gran % (Auto) Neut % (Auto) Lymph % (Auto) Mcdonald % (Auto) Eos % (Auto) Baso % (Auto) Lymph # (Auto) Mcdonald # (Auto) Eos # (Auto) Baso # (Auto) Abs Immat Gran (auto) Absolute Neuts (auto) Absolute Nucleated RBC Nucleated RBC % % Immature Plt Fraction APTT Puncture Site Left radial Left radial ABG pH 7.462 H 7.333 L ABG pCO2 36.0 48.3 H ABG pO2 129.1 H < 27.0 L* ABG PO2/FiO2 Ratio 1.61 ABG HCO3 25.1 25.1 ABG O2 Saturation 98.7 ABG O2 Content 12.2 L ABG Base Excess 1.4 -0.9 A-a Gradient 403.5 Oxyhemoglobin 97.3 25.7 L* Total Hemoglobin 8.7 L 8.4 L O2 Delivery Device Ventilator Ventilator O2 Liters/Min 60.0 60.0 Minute Volume Vent Rate Vent Mode FiO2 80 60 Tidal Volume PEEP Peak Inspir Pressure Pressure Support Sodium Potassium Chloride Carbon Dioxide Anion Gap BUN Creatinine Estim Creat Clear Calc Estimated GFR Glucose POC Capillary Glucose 202 H Lactic Acid 2.2 H Calcium Phosphorus Magnesium Total Bilirubin AST ALT Alkaline Phosphatase Ammonia Troponin I Total Protein Albumin Lipase Nasal MRSA (PCR) 07/01/25 07/01/25 07/01/25 07:45 08:20 09:01 WBC 10.1 H RBC 2.56 L Hgb 8.2 L Hct 24.1 L MCV 94.1 MCH 32.0 MCHC 34.0 RDW 13.9 Plt Count 112 L MPV 9.4 Immature Gran % (Auto) 0.3 Neut % (Auto) 62.9 Lymph % (Auto) 30.6 Mcdonald % (Auto) 6.1 Eos % (Auto) 0.0 Baso % (Auto) 0.1 L Lymph # (Auto) 3.08 Mcdonald # (Auto) 0.6 Eos # (Auto) 0.0 Baso # (Auto) 0.0 Abs Immat Gran (auto) 0.03 Absolute Neuts (auto) 6.3 Absolute Nucleated RBC 0.000 Nucleated RBC % 0.0 % Immature Plt Fraction 2.3 APTT 39.1 H Puncture Site ABG pH ABG pCO2 ABG pO2 ABG PO2/FiO2 Ratio ABG HCO3 ABG O2 Saturation ABG O2 Content ABG Base Excess A-a Gradient Oxyhemoglobin Total Hemoglobin O2 Delivery Device O2 Liters/Min Minute Volume Vent Rate Vent Mode FiO2 Tidal Volume PEEP Peak Inspir Pressure Pressure Support Sodium 134 L Potassium 4.1 Chloride 100 Carbon Dioxide 24 Anion Gap 10 BUN 43 H D Creatinine 4.80 H Estim Creat Clear Calc 13 Estimated GFR 12 L Glucose 179 H POC Capillary Glucose Lactic Acid 1.8 Calcium 8.9 Phosphorus 6.1 H Magnesium 2.1 Total Bilirubin 0.7 AST 389 H ALT 359 H Alkaline Phosphatase 52 Ammonia < 9 L Troponin I 0.464 H* Total Protein 5.8 L Albumin 3.3 L Lipase < 10 L Nasal MRSA (PCR) Not detected 07/01/25 09:35 WBC RBC Hgb Hct MCV MCH MCHC RDW Plt Count MPV Immature Gran % (Auto) Neut % (Auto) Lymph % (Auto) Mcdonald % (Auto) Eos % (Auto) Baso % (Auto) Lymph # (Auto) Mcdonald # (Auto) Eos # (Auto) Baso # (Auto) Abs Immat Gran (auto) Absolute Neuts (auto) Absolute Nucleated RBC Nucleated RBC % % Immature Plt Fraction APTT Puncture Site Artline ABG pH 7.560 H* ABG pCO2 27.3 L ABG pO2 111.1 H ABG PO2/FiO2 Ratio 1.85 ABG HCO3 23.9 ABG O2 Saturation 98.6 ABG O2 Content 10.9 L ABG Base Excess 1.9 A-a Gradient 292.0 Oxyhemoglobin 96.3 Total Hemoglobin 7.9 L O2 Delivery Device Ventilator O2 Liters/Min Not Reportable Minute Volume Not Reportable Vent Rate 18 Vent Mode Cmv FiO2 60 Tidal Volume 450 PEEP 5 Peak Inspir Pressure Not Reportable Pressure Support Not Reportable Sodium Potassium Chloride Carbon Dioxide Anion Gap BUN Creatinine Estim Creat Clear Calc Estimated GFR Glucose POC Capillary Glucose Lactic Acid Calcium Phosphorus Magnesium Total Bilirubin AST ALT Alkaline Phosphatase Ammonia Troponin I Total Protein Albumin Lipase Nasal MRSA (PCR)
--- NOTE | 2025-07-01 11:14 | P.CONCA_ITS ---
Assessment and Plan Assessment and plan (1) Cardiac arrest: Code(s): I46.9 - Cardiac arrest, cause unspecified Status: Acute Assessment and Plan: Cardiac arrest as detailed above. Patient likely has had a significant anoxic brain injury. Seizure activity noted. Currently undergoing cooling protocol. 2D echocardiogram with Doppler will be ordered. Repeat EKG to be performed. Supportive care and further workup and recommendation depending on neurological recovery (2) Diverticulitis: Code(s): K57.92 - Diverticulitis of intestine, part unspecified, without perforation or abscess without bleeding Status: Acute Assessment and Plan: On antibiotic (3) End stage renal disease: Code(s): N18.6 - End stage renal disease Status: Chronic Assessment and Plan: Per nephrology (4) PAF (paroxysmal atrial fibrillation): Code(s): I48.0 - Paroxysmal atrial fibrillation Status: Chronic Assessment and Plan: Hold flecainide and metoprolol History of Present Illness History of Present Illness Consult date/time: 07/01/25 11:14 Requesting physician: Kathy Hartley APN-C Consult reason: Other (Cardiac arrest) Reason For Visit: Diverticulitis/Chronic Kidney Disease on Peritonea Narrative: Date of service 07/01/2025 Reason for consultation: Cardiac arrest Requesting provider: Kathy Hartley 70 y/o M with PMH of peripheral vascular disease, anemia of chronic disease, ESRD on HD, hypertension, IBS, and diabetes presents here with nausea, vomiting, and abdominal pain. He was admitted for ongoing nausea vomiting abdominal pain and was being treated for diverticulitis. Last night patient was found by staff to be pulseless and not breathing. He was found by ancillary staff and code leonarda was called. Patient was initially found to be asystolic and underwent ACLS per standard protocol. See separate code sheet for complete details but patient was given epinephrine, bicarbonate, calcium chloride. Went from asystole to PA. Was then thought to be in VT and underwent defibrillation x1 using 200 joules. Amiodarone was also given. He was intubated and then transferred to the ICU where he currently remains. He is undergoing cooling protocol. EKG shows junctional rhythm with right bundle-branch block and left anterior fascicular block. Patient is currently unresponsive, on sedation. Review of Systems 2 Review of Systems: All systems reviewed & are unremarkable except as noted in HPI and below Constitutional: Constitutional: Denies chills ENT: Denies epistaxis Respiratory: Respiratory: Denies hemoptysis Gastrointestinal: Gastrointestinal: Reports abdominal pain and Denies melena Genitourinary: Genitourinary: Denies hematuria Hematologic/Lymphatic: Hematologic/Lymphatic: Denies easy bleeding [facility] Past Medical History Medical History (Updated 07/01/25 @ 08:35 by Jarvis Jimenez MD) Respiratory failure Cardiac arrest Depression Anxiety Shingles PAF (paroxysmal atrial fibrillation) PVD (peripheral vascular disease) Anemia End stage renal disease Urinary retention Overweight (BMI 25.0-29.9) Diarrhea HTN (hypertension) IBS (irritable bowel syndrome) Diabetes Surgical History Surgical History History of tonsillectomy History of hemorrhoidectomy Status post below knee amputation of right lower extremity S/P dialysis catheter insertion S/P arteriovenous (AV) fistula creation Family History Family History Father Congestive heart failure Mother Cancer Social History Social History Smoking status: Never smoker Second hand tobacco smoke exposure: Yes Alcohol intake: never Drinks per week: 0 Substance use: never Substance use type: does not use Do You Feel Safe in your Home?: Yes Lack of Transportation: No Lack of Food: Never True Current Housing: I Have Housing Concerned About Future Housing: No Difficulty Paying Gas/Electric Bills: No Difficulty Paying for Meds: No Currently Unemployed: No Education: High School Diploma/GED Difficulty w/ Childcare or Family Care: No Living arrangements: with family Spiritual care concerns: No Meds Home Medications and Allergies Home Medications ?Medication ?Instructions ?Recorded ?Confirmed ?Type ferrous sulfate 324 mg (65 mg 324 mg PO DAILY 12/16/23 06/29/25 History iron) tablet,delayed release tamsulosin 0.4 mg capsule 0.4 mg PO DAILY 12/16/23 06/29/25 History amlodipine 5 mg tablet 5 mg PO DAILY 02/10/24 06/29/25 History aspirin 325 mg tablet,delayed 325 mg PO QAM 30 days #30 tabs 03/05/25 06/29/25 Rx release metoprolol succinate 25 mg 25 mg PO QAM 30 days #30 tabs 05/03/25 06/29/25 Rx tablet,extended release 24 hr (Toprol XL) flecainide 100 mg tablet 100 mg PO Q12H #60 tabs 05/25/25 06/29/25 Rx ciprofloxacin HCl 500 mg tablet 500 mg PO Q12H #20 tabs 06/28/25 06/29/25 Rx dicyclomine 20 mg tablet 20 mg PO TID #30 tabs 06/28/25 06/29/25 Rx hydrocodone 5 mg-acetaminophen 325 1 tablet PO Q6H PRN pain #10 tabs 06/28/25 06/29/25 Rx mg tablet metronidazole 500 mg tablet 500 mg PO BID #20 tabs 06/28/25 06/29/25 Rx ondansetron 4 mg disintegrating 4 mg PO Q8H #14 tabs 06/28/25 06/29/25 Rx tablet escitalopram oxalate 5 mg tablet 5 mg PO DAILY 06/29/25 06/29/25 History Allergies Allergy/AdvReac Type Severity Reaction Status Date / Time No Known Allergies Allergy Verified 06/28/25 09:31 Vital Signs Vital Signs - 24 hr 06/30/25 14:00 06/30/25 21:10 06/30/25 21:10 Temperature 36.8 C 36.7 C Pulse Rate 69 63 Respiratory Rate 18 18 Blood Pressure 152/71 H 112/63 Pulse Oximetry 91 100 Oxygen Delivery Fraction of Inspired Oxygen 100 06/30/25 21:20 06/30/25 21:38 06/30/25 21:39 Temperature Pulse Rate 70 63 63 Respiratory Rate 18 18 Blood Pressure Pulse Oximetry 100 Oxygen Delivery Mechanical Ventilation Fraction of Inspired Oxygen 100 06/30/25 22:00 06/30/25 22:00 06/30/25 22:00 Temperature Pulse Rate 64 63 64 Respiratory Rate 18 18 Blood Pressure Pulse Oximetry Oxygen Delivery Fraction of Inspired Oxygen 06/30/25 22:43 06/30/25 23:40 07/01/25 00:00 Temperature Pulse Rate 73 60 Respiratory Rate 22 H 18 Blood Pressure Pulse Oximetry 100 98 Oxygen Delivery Mechanical Ventilation Mechanical Ventilation Fraction of Inspired Oxygen 100 100 07/01/25 00:00 07/01/25 00:00 07/01/25 00:00 Temperature Pulse Rate 65 65 65 Respiratory Rate 18 18 Blood Pressure Pulse Oximetry Oxygen Delivery Fraction of Inspired Oxygen 07/01/25 00:00 07/01/25 01:08 07/01/25 02:00 Temperature Pulse Rate 63 65 Respiratory Rate 16 21 H Blood Pressure Pulse Oximetry Oxygen Delivery Fraction of Inspired Oxygen 100 07/01/25 02:00 07/01/25 02:00 07/01/25 02:00 Temperature 36.4 C Pulse Rate 65 69 65 Respiratory Rate 21 H 18 Blood Pressure 131/69 Pulse Oximetry 100 Oxygen Delivery Fraction of Inspired Oxygen 07/01/25 02:55 07/01/25 04:00 07/01/25 04:00 Temperature 35.2 C L Pulse Rate 58 L 54 L Respiratory Rate 25 H Blood Pressure 124/61 Pulse Oximetry 100 100 Oxygen Delivery Mechanical Ventilation Fraction of Inspired Oxygen 80 100 07/01/25 04:00 07/01/25 04:00 07/01/25 05:45 Temperature Pulse Rate 64 56 L Respiratory Rate 18 Blood Pressure Pulse Oximetry 98 100 Oxygen Delivery Mechanical Ventilation Mechanical Ventilation Fraction of Inspired Oxygen 60 80 07/01/25 06:00 07/01/25 06:00 07/01/25 07:57 Temperature 35.9 C L Pulse Rate 75 56 L 68 Respiratory Rate 18 Blood Pressure 138/53 L Pulse Oximetry 97 Oxygen Delivery Mechanical Ventilation Fraction of Inspired Oxygen 60 07/01/25 08:00 07/01/25 10:00 Temperature 35.8 C L 36.1 C L Pulse Rate 67 57 L Respiratory Rate 21 H 16 Blood Pressure 111/66 135/48 L Pulse Oximetry 99 100 Oxygen Delivery Fraction of Inspired Oxygen Exam 2 Narrative: Intubated, sedated undergoing cooling protocol post cardiac arrest Const: General: comfortable HENMT: Face/Nose/Sinus: Normal nares present Eyes: Sclera: sclerae normal Neck: Neck: supple Chest: Other: No chest deformities Resp: Effort & Inspection: normal respiratory effort Auscultation: d iminished lung sounds Cardio: Rate: regular rate Heart sounds: no murmurs GI: Inspection: non-distended GI Palp: Yes Soft to palpation Skin: General skin exam: normal color Neuro: Other: Posturing Extrem: General: no edema Other: Right BKA noted Psych: Other: Unresponsive Results Labs and Meds 07/01/25 07:45 07/01/25 07:45 Lab results: Cardiac Enzymes 06/30/25 07/01/25 Range/Units 21:09 07:45 AST 484 H 389 H (17-59) U/L Troponin I 0.055 H* 0.464 H* (0.000-0.034) ng/mL Coagulation 07/01/25 Range/Units 09:01 APTT 39.1 H (22.3-36.8) Seconds CBC 06/30/25 07/01/25 Range/Units 21:09 07:45 WBC 16.4 H 10.1 H (4.5-10.0) K/mm3 RBC 2.67 L 2.56 L (4.6-6.20) M/mm3 Hgb 8.6 L 8.2 L (14.0-18.0) g/dL Hct 26.1 L 24.1 L (42.0-52.0) % Plt Count 128 L 112 L (150-375) k/mm3 Lymph # (Auto) 8.01 H 3.08 (0.9-3.2) K/mm3 [place] # (Auto) 0.6 0.6 (0.1-0.6) K/mm3 Eos # (Auto) 0.0 0.0 (0-0.3) K/mm3 Baso # (Auto) 0.0 0.0 (0.0-0.1) K/mm3 Comprehensive Metabolic Panel 06/30/25 07/01/25 Range/Units 21:09 07:45 Sodium 136 L 134 L (137-145) mmol/L Potassium 3.7 4.1 (3.4-5.0) mmol/L Chloride 99 100 (98-107) mmol/L Carbon Dioxide 23 24 (22-30) mmol/L BUN 33 H 43 H D (9-20) mg/dL Creatinine 4.33 H 4.80 H (0.7-1.3) mg/dL Glucose 202 H 179 H (65-110) mg/dL Calcium 10.0 8.9 (8.4-10.2) mg/dL AST 484 H 389 H (17-59) U/L ALT 382 H 359 H (6-50) U/L Alkaline Phosphatase 63 52 (38-126) U/L Total Protein 5.6 L 5.8 L (6.3-8.2) g/dL Albumin 3.1 L 3.3 L (3.5-5.1) g/dL Intake and Output 06/30/25 07/01/25 07/01/25 23:59 07:59 15:59 Intake Total 542.0 131.5 100 Output Total 0 Balance 542.0 131.5 100 Intake: IV 102.0 131.5 100 Fentanyl 2,500Mcg/Ug253kb(*Crx 0.9 20 2,500 mcg In 250 ml @ 50 MCG/HR 5 mls/hr IV CONT .Q50H [facility] Rx# :[id number] Midazolam 100Mg/Ns 100Ml(*Crx) 1.1 11.5 100 mg In 100 ml @ 7 MG/HR 7 mls/hr IV CONT .[id number] [facility] Rx# :[id number] levETIRAcetam 500MG/NACL 100ML 100 500 mg In 100 ml @ 400 mls/hr IVPB Q12HR [facility] Rx#:[id number] metroNIDAZOLE 500 MG/ISO 100ML 100 100 500 mg In 100 ml @ 100 mls/hr IVPB Q8H [facility] Rx#:[id number] Oral 440 0 Output: Urine 0 Patient Weight 07/01/25 23:59 Weight 82.3 kg EKG is personally reviewed and independently interpreted showing junctional rhythm with right bundle-branch block left anterior fascicular block.
--- NOTE | 2025-07-01 11:15 | ECG_ITS ---
Test Date: 2025-07-01 11:37:46 Measurements Intervals [place] Rate: 57 P: 54 MA: 177 QRS: -24 QRSD: 105 T: 43 QT: 544 QTc: 530 Interpretive Statements SINUS BRADYCARDIA POSSIBLE LEFT ATRIAL ENLARGEMENT BORDERLINE R WAVE PROGRESSION, ANTERIOR LEADS PROLONGED QT INTERVAL BASELINE ARTIFACT- AVR, AVL, AVF, V1-V3 ABNORMAL ECG Compared to ECG 06/30/2025 20:55:38 Prolonged QT interval now present Junctional rhythm no longer present Right bundle-branch block no longer present Left anterior fascicular block no longer present Electronically Signed On 07-01-2025 15:50:55 CDT by Nilson Jerez D.O.
--- NOTE | 2025-07-01 11:22 | P.CONIN_ITS ---
Assessment and Plan Assessment and plan (1) Cardiac arrest: Code(s): I46.9 - Cardiac arrest, cause unspecified Status: Acute Assessment and Plan: 06/29: 8:26 p.m. to 8:44 p.m. cardiac arrest with ACLS protocol and return of spontaneous circulation -etiology unknown, could be aspiration, arrhythmia, hypoxic -prior to that patient was last seen well at shift change which is approximately 7:00 p.m. -unknown amount of down time prior to the time he was found unresponsive -started patient on TTM, will maintain body temperature at 36?C -follow TTM protocol -central line and arterial line was inserted -CT brain: Showed chronic 2.1 cm left parafalcine meningioma, no acute intracranial process -have discussed with the family at length regarding target temperature management, along with that side effects which are bleeding, hypotension, shock, coagulopathy. They want to give him a complete chance, will continue. The family, especially the daughter who is the POA wants him to be a full code 06/30: CTA PE protocol: Negative for PE. No thoracic aortic dissection or dilatation. Large bilateral pleural effusions right greater than left (2) Acute respiratory failure with hypoxia: Code(s): J96.01 - Acute respiratory failure with hypoxia Status: Acute Assessment and Plan: Respiratory failure likely related to cardiac arrest -large bilateral pleural effusions -patient will require thoracentesis at some point once he is more stable -currently on CMV mode of ventilation peep of 5, 60% FiO2 with adequate O2 sats. 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 Pain worsened and he could not keep the antibiotics further medications down because of nausea and vomiting. 06/29: Patient presented back to the ED with similar complaints and was admitted to the medical floor with clear liquid diet, and IV antibiotics with ceftriaxone and metronidazole. -07/01/2025, switched ceftriaxone to cefepime and continue with metronidazole -GI following the patient 06/30: CT abdomen and pelvis IMPRESSION: 1. No abscess identified. No free intraperitoneal air identified. 2. Small amount of new nonspecific amount of fat stranding and fluid in the abdomen and pelvis. 3. New small right-sided pleural effusion. 4. New tiny left-sided pleural effusion. 5.There are two new moderate-sized bandlike opacities in the right lower lung and a new small bandlike opacity in the left lower lung. Differential includes atelectasis or pneumonia. Correlate clinically. Recommend follow-up to resolution. 6. Redemonstration of the mild left-sided hydronephrosis and mild left-sided hydroureter. No CT evidence for renal, ureteral or bladder calculi. 7. Slight improvement in the concentric thickening of the ramey of the bladder. Correlate clinically. 8. Redemonstration of the short segment foc 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, not intractable, without status epilepticus Status: Acute Assessment and Plan: Intractable myoclonic seizures despite patient being on Versed infusion, given Ativan 4 mg IV x2, -patient on Keppra, increased IV valproic acid after discussing with neurologist. Dr Escobar will be evaluating him today -myoclonic seizures post cardiac arrest is an ominous sign fall possible anoxic injury -continue to monitor and treat Plan DVT prophylaxis: Heparin subQ Stress ulcer prophylaxis: Protonix Nutrition: NPO Code Status: Full code Critical Care Time Spent: 83 minutes 07/01: Discussed with patient's , daughter TANISHA Perez and updated them with patient's condition and plan of care. They aware that the patient had a cardiac arrest, cause is unknown, they are aware about the myoclonic jerks which I mentioned could be related to anoxic injury. They are aware that the patient is on target temperature management, will be cooled for 24 hours and then will have him passively rewarmed. Once he is rewarmed we will discontinue this sedation and allow him to wake up. They also aware that Neurology is going to be following him for the seizures/myoclonic jerks. Nephrology also following for his end-stage renal disease as he is on hemodialysis. Cardiology following him too. I answered all questions made myself available if needed Due to a high probability of clinically significant, life threatening deterioration, the patient required my highest level of preparedness to intervene emergently and I personally spent this critical care time directly and personally managing the patient. This critical care time included obtaining a history; examining the patient; pulse oximetry; ordering and review of studies; arranging urgent treatment with development of a management plan; evaluation of patient's response to treatment; frequent reassessment; and discussions with other providers. It was exclusive of separately billable procedures and treating other patients and teaching time. Please see Assessment and Plan section and the rest of the note for further information on patient assessment and treatment This dictation may have been done utilizing a voice recognition system. Attempts have been made to correct errors. However, there may be uncorrected grammatical, spelling, and recognitions errors present. Mental Health Professional Consult Note Consult date: 07/01/25 Reason for consult: Cardiac arrest, acute respiratory failure secondary cardiac arrest, diverticulitis, end-stage renal disease on hemodialysis, transaminitis HPI: Sukhdev Lowery III is a 70 year old male with significant past medical history of peripheral vascular disease, anemia of chronic disease, paroxysmal atrial fibrillation, essential hypertension, end-stage renal disease on hemodialysis, diabetes presented to the ED on 06/29/2025 with complains of nausea, vomiting, abdominal pain. OFF note patient was also seen in the ER on 06/28/2025 for abdominal pain and vomiting, he was discharged home on antibiotics after some CT scan showed diverticulitis. To return back on 06/29/2025 with similar complaints which had worsened. Abdominal pain was in left lower quadrant, radiated to the whole abdomen complained of nausea and vomiting. He was unable to keep any of his medications or antibiotics without vomiting. His pain initially started 3-4 days prior to arrival to the ED. CT abdomen pelvis did show diverticulitis and patient was started on ceftriaxone and metronidazole and transferred to medical floor, with clear liquid diet and p.r.n. pain medications. GI was consulted recommended completing antibiotics and colonoscopy as outpatient. 06/30/2025: Patient was last seen well at shift change in the evening, was found unresponsive in code blue was called at 8:26 a.m., initial rhythm was asystole, underwent ACLS protocol, was given epinephrine, bicarbonate can a calcium. Went into PEA and V-tach/VFib and had to undergo defibrillation x1 using two hundred joules. Patient was also given amiodarone. Intubated and brought to the ICU for further management. I was not informed of the transfer to 2-1/2 hours after when the nurse called me that patient was having myoclonic jerks and seizure activity since the time he arrived to the ICU. Ordered Keppra, valproic acid IV, Ativan and patient was on Versed and fentanyl infusion infusion for sedation. Discussed at length with nurses in [place] to start patient on TTM and maintain body temperature of 36?C. Patient was on mechanical ventilation CMV mode peep of 5 100% FiO2. Patient seen and examined this morning in the ICU, is intubated on mechanical ventilation peep of 5, 70% FiO2 peep sedated with fentanyl and Versed infusion. Patient having myoclonic jerks and twitches. Unequal pupils right greater than left, fixed. Maintaining adequate blood pressures and O2 sat. I have placed in central line and arterial line early this morning. Patient given multiple doses of Ativan, patient received Keppra, increased patient's valproic acid after discussing with Neurology Review of Systems 2 Review of Systems: ROS unobtainable: Yes unobtainable due to endotracheal tube, unobtainable due to medical condition and unobtainable due to mental status PMFSH Past Medical History Medical History (Updated 07/01/25 @ 11:51 by Caren Guerrero MD) Respiratory failure Cardiac arrest Depression Anxiety Shingles PAF (paroxysmal atrial fibrillation) PVD (peripheral vascular disease) Anemia End stage renal disease Urinary retention Overweight (BMI 25.0-29.9) Diarrhea HTN (hypertension) IBS (irritable bowel syndrome) Diabetes Surgical History Surgical History History of tonsillectomy History of hemorrhoidectomy Status post below knee amputation of right lower extremity S/P dialysis catheter insertion S/P arteriovenous (AV) fistula creation Family History Family History Father Congestive heart failure Mother Cancer Social History Social History Smoking status: Never smoker Second hand tobacco smoke exposure: Yes Alcohol intake: never Drinks per week: 0 Substance use: never Substance use type: does not use Do You Feel Safe in your Home?: Yes Lack of Transportation: No Lack of Food: Never True Current Housing: I Have Housing Concerned About Future Housing: No Difficulty Paying Gas/Electric Bills: No Difficulty Paying for Meds: No Currently Unemployed: No Education: High School Diploma/GED Difficulty w/ Childcare or Family Care: No Living arrangements: with family Spiritual care concerns: No Meds Home Medications and Allergies Home Medications ?Medication ?Instructions ?Recorded ?Confirmed ?Type ferrous sulfate 324 mg (65 mg 324 mg PO DAILY 12/16/23 06/29/25 History iron) tablet,delayed release tamsulosin 0.4 mg capsule 0.4 mg PO DAILY 12/16/23 06/29/25 History amlodipine 5 mg tablet 5 mg PO DAILY 02/10/24 06/29/25 History aspirin 325 mg tablet,delayed 325 mg PO QAM 30 days #30 tabs 03/05/25 06/29/25 Rx release metoprolol succinate 25 mg 25 mg PO QAM 30 days #30 tabs 05/03/25 06/29/25 Rx tablet,extended release 24 hr (Toprol XL) flecainide 100 mg tablet 100 mg PO Q12H #60 tabs 05/25/25 06/29/25 Rx ciprofloxacin HCl 500 mg tablet 500 mg PO Q12H #20 tabs 06/28/25 06/29/25 Rx dicyclomine 20 mg tablet 20 mg PO TID #30 tabs 06/28/25 06/29/25 Rx hydrocodone 5 mg-acetaminophen 325 1 tablet PO Q6H PRN pain #10 tabs 06/28/25 06/29/25 Rx mg tablet metronidazole 500 mg tablet 500 mg PO BID #20 tabs 06/28/25 06/29/25 Rx ondansetron 4 mg disintegrating 4 mg PO Q8H #14 tabs 06/28/25 06/29/25 Rx tablet escitalopram oxalate 5 mg tablet 5 mg PO DAILY 06/29/25 06/29/25 History Allergies Allergy/AdvReac Type Severity Reaction Status Date / Time No Known Allergies Allergy Verified 06/28/25 09:31 Vital Signs Vital Signs - 24 hr 06/30/25 14:00 06/30/25 21:10 06/30/25 21:10 Temperature 98.2 F 98.1 F Pulse Rate 69 63 Respiratory Rate 18 18 Blood Pressure 152/71 H 112/63 Pulse Oximetry 91 100 Oxygen Delivery Fraction of Inspired Oxygen 100 06/30/25 21:20 06/30/25 21:38 06/30/25 21:39 Temperature Pulse Rate 70 63 63 Respiratory Rate 18 18 Blood Pressure Pulse Oximetry 100 Oxygen Delivery Mechanical Ventilation Fraction of Inspired Oxygen 100 06/30/25 22:00 06/30/25 22:00 06/30/25 22:00 Temperature Pulse Rate 64 63 64 Respiratory Rate 18 18 Blood Pressure Pulse Oximetry Oxygen Delivery Fraction of Inspired Oxygen 06/30/25 22:43 06/30/25 23:40 07/01/25 00:00 Temperature Pulse Rate 73 60 Respiratory Rate 22 H 18 Blood Pressure Pulse Oximetry 100 98 Oxygen Delivery Mechanical Ventilation Mechanical Ventilation Fraction of Inspired Oxygen 100 100 07/01/25 00:00 07/01/25 00:00 07/01/25 00:00 Temperature Pulse Rate 65 65 65 Respiratory Rate 18 18 Blood Pressure Pulse Oximetry Oxygen Delivery Fraction of Inspired Oxygen 07/01/25 00:00 07/01/25 01:08 07/01/25 02:00 Temperature Pulse Rate 63 65 Respiratory Rate 16 21 H Blood Pressure Pulse Oximetry Oxygen Delivery Fraction of Inspired Oxygen 100 07/01/25 02:00 07/01/25 02:00 07/01/25 02:00 Temperature 97.6 F Pulse Rate 65 69 65 Respiratory Rate 21 H 18 Blood Pressure 131/69 Pulse Oximetry 100 Oxygen Delivery Fraction of Inspired Oxygen 07/01/25 02:55 07/01/25 04:00 07/01/25 04:00 Temperature 95.3 F L Pulse Rate 58 L 54 L Respiratory Rate 25 H Blood Pressure 124/61 Pulse Oximetry 100 100 Oxygen Delivery Mechanical Ventilation Fraction of Inspired Oxygen 80 100 07/01/25 04:00 07/01/25 04:00 07/01/25 05:45 Temperature Pulse Rate 64 56 L Respiratory Rate 18 Blood Pressure Pulse Oximetry 98 100 Oxygen Delivery Mechanical Ventilation Mechanical Ventilation Fraction of Inspired Oxygen 60 80 07/01/25 06:00 07/01/25 06:00 07/01/25 07:57 Temperature 96.7 F L Pulse Rate 75 56 L 68 Respiratory Rate 18 Blood Pressure 138/53 L Pulse Oximetry 97 Oxygen Delivery Mechanical Ventilation Fraction of Inspired Oxygen 60 07/01/25 08:00 07/01/25 08:00 07/01/25 09:00 Temperature 96.5 F L 96.5 F L 97.2 F L Pulse Rate 67 61 58 L Respiratory Rate 21 H 20 20 Blood Pressure 111/66 111/66 130/64 Pulse Oximetry 99 100 100 Oxygen Delivery Fraction of Inspired Oxygen 07/01/25 10:00 07/01/25 10:00 07/01/25 11:00 Temperature 96.9 F L 97 F L 96.7 F L Pulse Rate 57 L 56 L 68 Respiratory Rate 16 18 19 Blood Pressure 135/48 L 134/48 L 105/42 L Pulse Oximetry 100 100 100 Oxygen Delivery Fraction of Inspired Oxygen Exam 2 Narrative: General: Acutely ill patient, hence mechanical ventilation and sedated HEENT:? Right pupil dilated and fixed, left pupil is smaller and fix, sclera is clear, ETT in place Neck:? Supple Respiratory:? Coarse breath sounds bilaterally, decreased at bases, no wheezing, adequate air entry Cardiac:? S1-S2 is normal, sinus bradycardia Abdomen:? Soft, nontender, nondistended, very hypoactive bowel sounds Extremities:? Left upper ext extremity fistula, right BKA, 1+ edema bilateral lower extremities, palpable pedal pulses on the left foot Neuro:? Patient is intubated, sedated, does not open his eyes or follow simple commands, having myoclonic twitching and jerks Skin:? Cool to touch Psych:? Unable to assess at this time Results Labs 07/01/25 07:45 07/01/25 07:45 Labs: Short CBC 06/30/25 07/01/25 Range/Units 21:09 07:45 WBC 16.4 H 10.1 H (4.5-10.0) K/mm3 Hgb 8.6 L 8.2 L (14.0-18.0) g/dL Hct 26.1 L 24.1 L (42.0-52.0) % Plt Count 128 L 112 L (150-375) k/mm3 BMP 06/30/25 07/01/25 21:09 07:45 Sodium 136 L 134 L Potassium 3.7 4.1 Chloride 99 100 Carbon Dioxide 23 24 BUN 33 H 43 H D Creatinine 4.33 H 4.80 H Glucose 202 H 179 H Calcium 10.0 8.9 Cardiac Enzymes 06/30/25 07/01/25 Range/Units 21:09 07:45 Troponin I 0.055 H* 0.464 H* (0.000-0.034) ng/mL Liver Function 06/30/25 07/01/25 Range/Units 21:09 07:45 Total Bilirubin 0.4 0.7 (0.2-1.3) mg/dL AST 484 H 389 H (17-59) U/L ALT 382 H 359 H (6-50) U/L Alkaline Phosphatase 63 52 (38-126) U/L Albumin 3.1 L 3.3 L (3.5-5.1) g/dL Quality VTE Prophylaxis VTE prophylaxis: pharmacologic ordered Hospitalist MIPS Advance Care Plan I have confirmed that the patient's Advanced Care Plan is present, code status is documented, or surrogate decision maker is listed in patient medical record.: Yes Medication Reconciliation I have utilized all available resources to obtain, update and review the patients current medications (includes all prescriptions, OTC, herbals, cannabis, and nutritional supplements).: Yes
[2025-07-01] MEDS: VALPROATE SODIUM INJ 750 MG in DEXTROSE 5% IN WATER 50 ML 57.5 MG IVPB (11:30)
[2025-07-01 11:52] LABS: Hematocrit 23.3 % (42.0-52.0); Hemoglobin 7.9 g/dL (14.0-18.0); Immature Platelet Fraction Pct 2.2 % (0.9-11.2); Mean Corpuscular HGB Conc 33.9 g/dl (32-36); Mean Corpuscular Hemoglobin 32.2 pg (26-34); Mean Corpuscular Volume 95.1 fl (80-100); Platelet Count Result 103 k/mm3 (150-375); Red Blood Count 2.45 M/mm3 (4.6-6.20); White Blood Count 8.5 K/mm3 (4.5-10.0)
[2025-07-01 12:04] LABS: INR 1.4; Prothrombin Time 17.5 Seconds (11.1-14.7)
[2025-07-01 12:05] LABS: Partial Thromboplastin Time 43.4 Seconds (22.3-36.8)
[2025-07-01 12:08] LABS: Anion Gap 10 mmol/L (4-12); Blood Urea Nitrogen 43 mg/dL (9-20); Calcium 8.6 mg/dL (8.4-10.2); Carbon Dioxide 27 mmol/L (22-30); Chloride 98 mmol/L (98-107); Creatine Kinase 169 U/L (55-170); Estimated CRCL calculation 12 ml/min; Estimated Glomerular Filt Rate 12; Glucose 151 mg/dL (65-110); Potassium 3.7 mmol/L (3.4-5.0); Sodium 135 mmol/L (137-145)
--- NOTE | 2025-07-01 12:23 | P.PCNBED_ITS ---
Procedures Arterial Line Arterial Line Date: 07/01/25 Arterial Line Time: 07:45 Discussed with the patient/family/POA, the placement of an arterial catheter, including its clinical necessity/indication and associated potential risks, benefits and alternatives.: Yes Patient/family/POA and/or understands and acknowledges the need to proceed with the arterial catheter insertion as an important element of the patient's clinical management.: Yes Time Out Performed: Yes Patient Position: supine Director Nursing Service Prep: sterile gown, sterile gloves, mask and hat Site: left and femoral Site Prep: chlorhexidine and sterile drape Skin Anesthesia: 1% lidocaine Technique used: ultrasound-guided Size (Gauge): 14 Length: 4.4 cm Closure/Dressing: suture, transparent dressing, hemostatic product, antimicrobial product and securement product Patient tolerated procedure: well and no complications Complications: none
--- NOTE | 2025-07-01 12:24 | P.PCNBED_ITS ---
Procedures Central Line Placement Right Femoral: Central Line Date: 07/01/25 Central Line Time: 07:30 Discussed w/ the patient/family/POA,the placement of a central venous catheter, including its clinical necessity/indication & associated potential risks, benifits and alternatives.: Yes The patient/family/POA understand(s) and acknowledge(s) the need to proceed with central venous catheter insertion as an important element of the patient's clinical management.: Yes Consent: I have discussed with the patient and/or surrogate, the non-emergent placement of a central venous catheter, including its clinical necessity/indication and associated potential risks and complications. The patient and/or surrogate understand(s) and acknowledge(s) the need to proceed with central venous catheter insertion as an important element of the patient's clinical management. Time Out Performed: Yes Patient Position: supine Patient placed on monitor/pulse ox: Yes Provider Prep: mask, sterile gown, sterile gloves, Max. sterile barrier precautions, cap and hand hygiene with conventional soap/water or alcohol based hand rub Central line prep: 2% Chlorhexidine scrub and sterile full body sheet applied Local anesthesia used: lidocaine 1% Amount of anesthesia used (ml): 3 Sterile US Technique with sterile gel/sterile probe covers: Yes Central line lumen inserted: triple Montenegrin: 7 Length (cm): 20 Depth of Insertion (cm): 20 Post Procedure: sutured in place, good blood return, all ports aspirated, flushed, capped, transparent dressing, hemostatic product, antimicrobial p roduct, securement product and aseptic technique maintained throughout procedure Post procedure x-ray: other (Not indicated) Complications: none Additional comments: Patient tolerated the procedure well Arterial Line Size (Gauge): 14
[2025-07-01] MEDS: PROPOFOL IV EMULSION 100 ML 2.47 MG IV CONT (12:40)
[2025-07-01] MEDS: NOREPINEPHRINE 8 MG/D5W 250 ML 8 MG/250 ML BAG 9.38 MG IV CONT (12:41)
--- NOTE | 2025-07-01 13:04 | P.PNIM_ITS ---
Progress Note: A&P Assessment and Plan (1) Cardiac arrest: Code(s): I46.9 - Cardiac arrest, cause unspecified Status: Acute Assessment and Plan: 06/29: 8:26 p.m. to 8:44 p.m. cardiac arrest with ACLS protocol and return of spontaneous circulation -etiology unknown, could be aspiration, arrhythmia, hypoxic, stroke -prior to that patient was last seen well at shift change which is approximately 7:00 p.m. 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, not intractable, without status epilepticus Status: Acute Assessment and Plan: Intractable myoclonic seizures despite patient being on Versed infusion, given Ativan 4 mg IV x2, -07/01 continue IV levetiracetam and valproate, pending neurology consultation -07/01 d/w family at bedside that myoclonic seizures post cardiac arrest is a very poor prognostic sign (4) Diverticulitis: Code(s): K57.92 - Diverticulitis of intestine, part unspecified, without perforation or abscess without bleeding Status: Acute Assessment and Plan: 06/28: Patient presented the ED with abdominal pain, nausea vomiting, CT scan of the abdomen pelvis showed diverticulitis and discharged home on antibiotics. Pain worsened and he could not keep the antibiotics further medications down because of nausea and vomiting. 06/29: Patient presented back to the ED with similar complaints and was admitted to the medical floor with clear liquid diet, and IV antibiotics with ceftriaxone and metronidazole. -07/01/2025, switched ceftriaxone to cefepime and continue with metronidazole -GI following the patient 06/30: CT abdomen and pelvis 1. No abscess identified. No free intraperitoneal air identified. 2. Small amount of new nonspecific amount of fat stranding and fluid in the abdomen and pelvis. 3. New small right-sided pleural effusion. 4. New tiny left-sided pleural effusion. 5.There are two new moderate-sized bandlike opacities in the right lower lung and a new small bandlike opacity in the left lower lung. Differential includes atelectasis or pneumonia. Correlate clinically. Recommend follow-up to resolution. 6. Redemonstration of the mild left-sided hydronephrosis and mild left-sided hydroureter. No CT evidence for renal, ureteral or bladder calculi. 7. Slight improvement in the concentric thickening of the ramey of the bladder. Correlate clinically. 8. Redemonstration of the short segment focal thickening of the ramey of the distal descending colon and proximal sigmoid colon. Differential includes incomplete bowel wall distention, diverticulitis or mass. (5) ESRD on hemodialysis: Code(s): N18.6 - End stage renal disease; Z99.2 - Dependence on renal dialysis Status: Acute Assessment and Plan: Patient has a history of end-stage renal disease on hemodialysis -nephrology following (6) HTN (hypertension): Qualifiers: Hypertension type: unspecified Qualified Code(s): I10 - Essential (primary) hypertension Code(s): I10 - Essential (primary) hypertension Status: Chronic Assessment and Plan: Antihypertensives on hold (7) Anemia: Code(s): D64.9 - Anemia, unspecified Status: Acute Assessment and Plan: History of anemia of CKD 07/01 Hgb 7.9 Subjective Date/time seen: 07/01/25 13:04 Interval history: Cardiac arrest with post-arrest myoclonic jerks 15 PM with CPR performed 20:26-20:44. Asystole, PEA, VT prior to RSC. 07/01 continues with myoclonic jerks and cooling protocol was initiated by ager tender after discussion with family. Review of Systems Review of Systems: ROS unobtainable: Yes unobtainable due to medical condition Exam Narrative: HEENT: Pupils minimally reactive, sclerae nonicteric, pharyngeal mucosa pink and intact, ET tube in place NECK: No JVD CHEST: Coarse BS, mechanically ventilated HEART: distant S1/S2, regular, no audible murmur ABDOMEN: BS hypoactive, soft, nontender, no mass EXTREMITIES: No cyanosis, edema, or clubbing NEUROLOGIC: No corneal reflex, abnormal doll's eyes, intermittent generalized myoclonic jerks MUSCULOSKELETAL: Right BKA PSYCH: Unresponsive to verbal or tactile stimuli Objective Data Vital Signs Vital Signs: Vital Signs - 24 hr 06/30/25 14:00 06/30/25 21:10 06/30/25 21:10 Temperature 98.2 F 98.1 F Pulse Rate 69 63 Respiratory Rate 18 18 Blood Pressure 152/71 H 112/63 Pulse Oximetry 91 100 Oxygen Delivery Fraction of Inspired Oxygen 100 06/30/25 21:20 06/30/25 21:38 06/30/25 21:39 Temperature Pulse Rate 70 63 63 Respiratory Rate 18 18 Blood Pressure Pulse Oximetry 100 Oxygen Delivery Mechanical Ventilation Fraction of Inspired Oxygen 100 06/30/25 22:00 06/30/25 22:00 06/30/25 22:00 Temperature Pulse Rate 64 63 64 Respiratory Rate 18 18 Blood Pressure Pulse Oximetry Oxygen Delivery Fraction of Inspired Oxygen 06/30/25 22:43 06/30/25 23:40 07/01/25 00:00 Temperature Pulse Rate 73 60 Respiratory Rate 22 H 18 Blood Pressure Pulse Oximetry 100 98 Oxygen Delivery Mechanical Ventilation Mechanical Ventilation Fraction of Inspired Oxygen 100 100 07/01/25 00:00 07/01/25 00:00 07/01/25 00:00 Temperature Pulse Rate 65 65 65 Respiratory Rate 18 18 Blood Pressure Pulse Oximetry Oxygen Delivery Fraction of Inspired Oxygen 07/01/25 00:00 07/01/25 01:08 07/01/25 02:00 Temperature Pulse Rate 63 65 Respiratory Rate 16 21 H Blood Pressure Pulse Oximetry Oxygen Delivery Fraction of Inspired Oxygen 100 07/01/25 02:00 07/01/25 02:00 07/01/25 02:00 Temperature 97.6 F Pulse Rate 65 69 65 Respiratory Rate 21 H 18 Blood Pressure 131/69 Pulse Oximetry 100 Oxygen Delivery Fraction of Inspired Oxygen 07/01/25 02:55 07/01/25 04:00 07/01/25 04:00 Temperature 95.3 F L Pulse Rate 58 L 54 L Respiratory Rate 25 H Blood Pressure 124/61 Pulse Oximetry 100 100 Oxygen Delivery Mechanical Ventilation Fraction of Inspired Oxygen 80 100 07/01/25 04:00 07/01/25 04:00 07/01/25 05:45 Temperature Pulse Rate 64 56 L Respiratory Rate 18 Blood Pressure Pulse Oximetry 98 100 Oxygen Delivery Mechanical Ventilation Mechanical Ventilation Fraction of Inspired Oxygen 60 80 07/01/25 06:00 07/01/25 06:00 07/01/25 07:57 Temperature 96.7 F L Pulse Rate 75 56 L 68 Respiratory Rate 18 Blood Pressure 138/53 L Pulse Oximetry 97 Oxygen Delivery Mechanical Ventilation Fraction of Inspired Oxygen 60 07/01/25 08:00 07/01/25 08:00 07/01/25 08:00 Temperature 96.5 F L 96.5 F L 96.5 F L Pulse Rate 67 61 67 Respiratory Rate 21 H 20 21 H Blood Pressure 111/66 111/66 111/66 Pulse Oximetry 99 100 99 Oxygen Delivery Fraction of Inspired Oxygen 07/01/25 09:00 07/01/25 10:00 07/01/25 10:00 Temperature 97.2 F L 96.9 F L 97 F L Pulse Rate 58 L 57 L 56 L Respiratory Rate 20 16 18 Blood Pressure 130/64 135/48 L 134/48 L Pulse Oximetry 100 100 100 Oxygen Delivery Fraction of Inspired Oxygen 07/01/25 10:00 07/01/25 11:00 07/01/25 11:26 Temperature 96.9 F L 96.7 F L Pulse Rate 57 L 68 62 Respiratory Rate 16 19 Blood Pressure 135/48 L 105/42 L Pulse Oximetry 100 100 100 Oxygen Delivery Mechanical Ventilation Fraction of Inspired Oxygen 60 07/01/25 12:00 07/01/25 12:40 07/01/25 12:41 Temperature 96.7 F L Pulse Rate 68 62 62 Respiratory Rate 20 19 Blood Pressure 101/40 L 99/40 L Pulse Oximetry 100 Oxygen Delivery Fraction of Inspired Oxygen Intake/Output Intake/Output: Intake & Output 06/28/25 06/29/25 06/30/25 07/01/25 23:59 23:59 23:59 23:59 Intake Total 2650 1582.0 231.5 Output Total 0 0 Balance 2650 1582.0 231.5 Meds/Results Medications: Active Medications Generic Name Dose Route Start Last Admin Trade Name Freq PRN Reason Stop Dose Admin Acetaminophen 650 mg 06/29/25 12:42 Acetaminophen 325 Mg Tablet PO Q6H PRN Mild Pain (1-3) or Fever Amlodipine Besylate 5 mg 06/30/25 09:00 06/30/25 10:04 Amlodipine Besylate 5 Mg Tablet PO 5 mg DAILY SUPA Administration Aspirin 325 mg 06/30/25 09:00 06/30/25 10:04 Aspirin 325 Mg Enteric Tablet PO 325 mg QAM SUPA Administration Dextrose 12.5 gm 06/29/25 12:50 Dextrose 50% 25 Gm/50 Ml Syringe IV PUSH PRN PRN Hypoglycemia Protocol Dicyclomine HCl 20 mg 06/29/25 12:42 Dicyclomine Hcl 10 Mg Capsule PO QID PRN Abdominal Cramping Epoetin Christian-epbx 10,000 units 07/01/25 18:27 Epoetin Christian-Epbx 10,000 Units/Ml Vial IV PUSH 07/01/25 18:28 ONCE ONE Escitalopram Oxalate 5 mg 06/30/25 09:00 06/30/25 10:06 Escitalopram Oxalate 5 Mg Tablet PO 5 mg DAILY SUPA Administration Ferrous Sulfate 324 mg 06/30/25 09:00 06/30/25 10:05 Ferrous Sulfate [address] BY MOUTH 324 mg DAILY SUPA Administration Flecainide Acetate 100 mg 06/29/25 21:00 06/30/25 21:30 Flecainide Acetate 100 Mg Tablet PO Not Given Q12H SUPA Furosemide 40 mg 07/01/25 09:00 Furosemide Inj 40 Mg/4 Ml Vial IV PUSH BID SUPA Glucagon 1 mg 06/29/25 12:50 Glucagon For Inj 1 Mg Vial IM PRN PRN Hypoglycemia Protocol Glucagon 1 mg 07/01/25 02:06 Glucagon For Inj 1 Mg Vial IM PRN PRN Hypoglycemia Protocol Glucose 15 gm 06/29/25 12:50 Glucose Oral Gel 15 Gm Of Glucse In 37.5 Gm Tube PO PRN PRN Hypoglycemia Protocol Heparin Sodium (Porcine) 5,000 units 07/01/25 14:00 Heparin Sodium 5,000 Units/Ml Vial SUB-Q Q8HR SUPA Albumin Human 50 mls @ 999 mls/hr 06/29/25 11:31 Albutein IVPB 07/29/25 11:30 Q10M PRN HYPOTENSION Metronidazole 500 mg in 100 mls @ 100 mls/hr 06/29/25 18:00 07/01/25 09:47 Flagyl 500 Mg/Iso Soln 100 Ml IVPB 100 mls/hr Q8H SUPA Administration Dextrose 1,000 mls @ 100 mls/hr 06/29/25 12:50 Dextrose 5% 1,000 Ml IVPB PRN PRN Hypoglycemia Protocol Fentanyl Citrate 2,500 mcg in 250 mls @ 5 mls/hr 06/30/25 21:15 07/01/25 02:00 Fentanyl 2,500 Mcg/Ns 250 Ml IV CONT 50 mcg/hr .Q50H SUPA 5 mls/hr Titration Protocol 50 MCG/HR Midazolam HCl 100 mg in 100 mls @ 7 mls/hr 06/30/25 21:15 07/01/25 02:00 Versed 100 Mg/Ns 100 Ml IV CONT 7 mg/hr .[id number] SUPA 7 mls/hr Titration Protocol 7 MG/HR Levetiracetam 500 mg in 100 mls @ 400 mls/hr 07/01/25 09:00 07/01/25 10:00 Keppra Iv IVPB Infused Q12HR SUPA Infusion Cefepime HCl 1 gm/ Sodium 50 mls @ 100 mls/hr 07/01/25 14:00 Chloride IVPB Q24H SUPA Valproate Sodium 1,000 mg/ 60 mls @ 52.5 mls/hr 07/01/25 17:00 Dextrose IVPB Q8H SUPA Cisatracurium Besylate 200 mg/ 100 mls @ 7.407 mls/hr 07/01/25 10:55 Sodium Chloride IV CONT .[id number] SUPA Protocol 3 MCG/KG/MIN Propofol 100 mls @ 2.469 mls/hr 07/01/25 12:35 07/01/25 12:40 Diprivan IV CONT 5 mcg/kg/min .[id number] SUPA 2.47 mls/hr Administration Protocol 5 MCG/KG/MIN Norepinephrine Bitartrate 8 mg in 250 mls @ 9.375 mls/hr 07/01/25 12:35 07/01/25 12:41 Levophed 8 Mg/D5w 250 Ml IV CONT 5 mcg/min .Q24H SUPA 9.38 mls/hr Administration Protocol 5 MCG/MIN Insulin Aspart 3 - 6 units 07/01/25 06:00 07/01/25 12:55 Insulin Aspart (*Bkc) 100 Units/Ml SUB-Q Not Given Q6HR [facility] Protocol Lidocaine/Prilocaine 1 each 06/29/25 11:33 06/29/25 12:57 Lidocaine/Prilocaine Cream 2.5-2.5% Tube TOPICAL 1 each WITH DIALYSIS PRN Administration for dialysis Protocol Metoprolol Succinate 25 mg 06/30/25 09:00 06/30/25 10:06 Metoprolol Succinate Ext Rel 25 Mg Tabcr PO 25 mg QAM SUPA Administration Multi-Ingred Cream/Lotion/Oil/Oint 1 applic 07/01/25 11:00 Mineral Oil/White Petrolatum Ointment EACH EYE Q12HR [facility] Ondansetron HCl 4 mg 06/29/25 10:42 06/30/25 17:05 Ondansetron Inj 4 Mg/2 Ml Vial IV PUSH 4 mg Q4H PRN Administration Nausea Pantoprazole Sodium 40 mg 07/02/25 09:00 Pantoprazole Sodium Iv 40 Mg Vial IV PUSH QAM SUPA Perflutren Lipid Microsphere 0 ml 07/01/25 11:25 Perflutren Lipid Microspheres 1.5 Ml Vial Diluted To 10 Ml Total Volume IV PUSH 07/04/25 11:25 ONCE PRN adequate visualization Protocol Polyethylene Glycol 17 gm 06/29/25 12:42 Polyethylene Glycol 3350 17 Gm Powd.Pack PO QAM PRN Constipation Sodium Chloride 10 ml 07/01/25 14:00 Central Line Flush IV PUSH Q8HR SUPA Sodium Chloride 20 ml 07/01/25 09:09 Central Line Flush IV PUSH PRN PRN after blood draws Tamsulosin HCl 0.4 mg 06/30/25 09:00 06/30/25 10:06 Tamsulosin Hcl 0.4 Mg Capsule PO 0.4 mg DAILY SUPA Administration Radiology Results: ITS Impressions Abdomen/Pelvis CT 06/30/25 11:54 IMPRESSION: 1. No abscess identified. No free intraperitoneal air identified. 2. Small amount of new nonspecific amount of fat stranding and fluid in the abdomen and pelvis. 3. New small right-sided pleural effusion. 4. New tiny left-sided pleural effusion. 5.There are two new moderate-sized bandlike opacities in the right lower lung and a new small bandlike opacity in the left lower lung. Differential includes atelectasis or pneumonia. Correlate clinically. Recommend follow-up to resolution. 6. Redemonstration of the mild left-sided hydronephrosis and mild left-sided hydroureter. No CT evidence for renal, ureteral or bladder calculi. 7. Slight improvement in the concentric thickening of the ramey of the bladder. Correlate clinically. 8. Redemonstration of the short segment focal thickening of the ramey of the distal descending colon and proximal sigmoid colon. Differential includes incomplete bowel wall distention, diverticulitis or mass. Chest CTA 06/30/25 22:43 IMPRESSION: No pulmonary embolus. No thoracic aortic dissection or dilatation. Large bilateral pleural effusions, right greater than left Abdomen X-Ray 07/01/25 07:07 IMPRESSION: 1. Orogastric tube in stomach. 2. Small right pleural effusion with atelectasis and/or pneumonia in the bilateral lower lung zones. Chest X-Ray 07/01/25 07:15 IMPRESSION: 1. Endotracheal tube tip 3.7 cm above the socorro. 2. Small right pleural effusion with opacities in bilateral lower lung zones which could represent atelectasis or pneumonia. Head CT 07/01/25 08:10 IMPRESSION: 1. 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 No acute intracranial process. Labs Labs: Laboratory Results - last 24 hr 06/30/25 06/30/25 06/30/25 16:43 20:23 21:09 WBC 16.4 H RBC 2.67 L Hgb 8.6 L Hct 26.1 L MCV 97.8 MCH 32.2 MCHC 33.0 RDW 14.1 Plt Count 128 L MPV 9.0 Immature Gran % (Auto) 1.3 H Neut % (Auto) 46.0 Lymph % (Auto) 48.9 H Morrill % (Auto) 3.5 Eos % (Auto) 0.1 Baso % (Auto) 0.2 Lymph # (Auto) 8.01 H Morrill # (Auto) 0.6 Eos # (Auto) 0.0 Baso # (Auto) 0.0 Abs Immat Gran (auto) 0.22 H Absolute Neuts (auto) 7.5 H Absolute Nucleated RBC 0.020 H Nucleated RBC % 0.1 % Immature Plt Fraction PT INR APTT Puncture Site ABG pH ABG pCO2 ABG pO2 ABG PO2/FiO2 Ratio ABG HCO3 ABG O2 Saturation ABG O2 Content ABG Base Excess A-a Gradient Oxyhemoglobin Total Hemoglobin O2 Delivery Device O2 Liters/Min Minute Volume Vent Rate Vent Mode FiO2 Tidal Volume PEEP Peak Inspir Pressure Pressure Support Sodium 136 L Potassium 3.7 Chloride 99 Carbon Dioxide 23 Anion Gap 14 H BUN 33 H Creatinine 4.33 H Estim Creat Clear Calc 14 Estimated GFR 14 L Glucose 202 H POC Capillary Glucose 212 H 149 H Lactic Acid Calcium 10.0 Phosphorus Magnesium 2.2 Total Bilirubin 0.4 AST 484 H ALT 382 H Alkaline Phosphatase 63 Ammonia Total Creatine Kinase Troponin I 0.055 H* Total Protein 5.6 L Albumin 3.1 L Lipase Nasal MRSA (PCR) 06/30/25 07/01/25 07/01/25 21:48 03:59 05:29 WBC RBC Hgb Hct MCV MCH MCHC RDW Plt Count MPV Immature Gran % (Auto) Neut % (Auto) Lymph % (Auto) Morrill % (Auto) Eos % (Auto) Baso % (Auto) Lymph # (Auto) Morrill # (Auto) Eos # (Auto) Baso # (Auto) Abs Immat Gran (auto) Absolute Neuts (auto) Absolute Nucleated RBC Nucleated RBC % % Immature Plt Fraction PT INR APTT Puncture Site Right radial Left radial ABG pH 7.487 H 7.462 H ABG pCO2 29.4 L 36.0 ABG pO2 191.2 H 129.1 H ABG PO2/FiO2 Ratio 1.91 1.61 ABG HCO3 21.8 L 25.1 ABG O2 Saturation 99.4 98.7 ABG O2 Content 12.7 L 12.2 L ABG Base Excess -1.1 1.4 A-a Gradient 492.4 403.5 Oxyhemoglobin 97.7 97.3 Total Hemoglobin 8.9 L 8.7 L O2 Delivery Device Ventilator Ventilator O2 Liters/Min Not Reportable 60.0 Minute Volume Not Reportable Vent Rate 18 Vent Mode Assist control FiO2 100 80 Tidal Volume 530 PEEP 5 Peak Inspir Pressure Not Reportable Pressure Support Not Reportable Sodium Potassium Chloride Carbon Dioxide Anion Gap BUN Creatinine Estim Creat Clear Calc Estimated GFR Glucose POC Capillary Glucose Lactic Acid 2.2 H Calcium Phosphorus Magnesium Total Bilirubin AST ALT Alkaline Phosphatase Ammonia Total Creatine Kinase Troponin I Total Protein Albumin Lipase Nasal MRSA (PCR) 07/01/25 07/01/25 07/01/25 06:32 07:33 07:45 WBC 10.1 H RBC 2.56 L Hgb 8.2 L Hct 24.1 L MCV 94.1 MCH 32.0 MCHC 34.0 RDW 13.9 Plt Count 112 L MPV 9.4 Immature Gran % (Auto) 0.3 Neut % (Auto) 62.9 Lymph % (Auto) 30.6 Morrill % (Auto) 6.1 Eos % (Auto) 0.0 Baso % (Auto) 0.1 L Lymph # (Auto) 3.08 Morrill # (Auto) 0.6 Eos # (Auto) 0.0 Baso # (Auto) 0.0 Abs Immat Gran (auto) 0.03 Absolute Neuts (auto) 6.3 Absolute Nucleated RBC 0.000 Nucleated RBC % 0.0 % Immature Plt Fraction 2.3 PT INR APTT Puncture Site Left radial ABG pH 7.333 L ABG pCO2 48.3 H ABG pO2 < 27.0 L* ABG PO2/FiO2 Ratio ABG HCO3 25.1 ABG O2 Saturation ABG O2 Content ABG Base Excess -0.9 A-a Gradient Oxyhemoglobin 25.7 L* Total Hemoglobin 8.4 L O2 Delivery Device Ventilator O2 Liters/Min 60.0 Minute Volume Vent Rate Vent Mode FiO2 60 Tidal Volume PEEP Peak Inspir Pressure Pressure Support Sodium 134 L Potassium 4.1 Chloride 100 Carbon Dioxide 24 Anion Gap 10 BUN 43 H D Creatinine 4.80 H Estim Creat Clear Calc 13 Estimated GFR 12 L Glucose 179 H POC Capillary Glucose 202 H Lactic Acid 2.2 H 1.8 Calcium 8.9 Phosphorus 6.1 H Magnesium 2.1 Total Bilirubin 0.7 AST 389 H ALT 359 H Alkaline Phosphatase 52 Ammonia < 9 L Total Creatine Kinase Troponin I 0.464 H* Total Protein 5.8 L Albumin 3.3 L Lipase < 10 L Nasal MRSA (PCR) 07/01/25 07/01/25 07/01/25 08:20 09:01 09:35 WBC RBC Hgb Hct MCV MCH MCHC RDW Plt Count MPV Immature Gran % (Auto) Neut % (Auto) Lymph % (Auto) Morrill % (Auto) Eos % (Auto) Baso % (Auto) Lymph # (Auto) [place]rill # (Auto) Eos # (Auto) Baso # (Auto) Abs Immat Gran (auto) Absolute Neuts (auto) Absolute Nucleated RBC Nucleated RBC % % Immature Plt Fraction PT INR APTT 39.1 H Puncture Site Artline ABG pH 7.560 H* ABG pCO2 27.3 L ABG pO2 111.1 H ABG PO2/FiO2 Ratio 1.85 ABG HCO3 23.9 ABG O2 Saturation 98.6 ABG O2 Content 10.9 L ABG Base Excess 1.9 A-a Gradient 292.0 Oxyhemoglobin 96.3 Total Hemoglobin 7.9 L O2 Delivery Device Ventilator O2 Liters/Min Not Reportable Minute Volume Not Reportable Vent Rate 18 Vent Mode Cmv FiO2 60 Tidal Volume 450 PEEP 5 Peak Inspir Pressure Not Reportable Pressure Support Not Reportable Sodium Potassium Chloride Carbon Dioxide Anion Gap BUN Creatinine Estim Creat Clear Calc Estimated GFR Glucose POC Capillary Glucose Lactic Acid Calcium Phosphorus Magnesium Total Bilirubin AST ALT Alkaline Phosphatase Ammonia Total Creatine Kinase Troponin I Total Protein Albumin Lipase Nasal MRSA (PCR) Not detected 07/01/25 07/01/25 07/01/25 11:18 11:42 12:24 WBC 8.5 RBC 2.45 L Hgb 7.9 L Hct 23.3 L MCV 95.1 MCH 32.2 MCHC 33.9 RDW 14.2 Plt Count 103 L MPV 9.3 Immature Gran % (Auto) Neut % (Auto) Lymph % (Auto) Morrill % (Auto) Eos % (Auto) Baso % (Auto) Lymph # (Auto) [place]rill # (Auto) Eos # (Auto) Baso # (Auto) Abs Immat Gran (auto) Absolute Neuts (auto) Absolute Nucleated RBC Nucleated RBC % % Immature Plt Fraction 2.2 PT 17.5 H D INR 1.4 APTT 43.4 H Puncture Site ABG pH ABG pCO2 ABG pO2 ABG PO2/FiO2 Ratio ABG HCO3 ABG O2 Saturation ABG O2 Content ABG Base Excess A-a Gradient Oxyhemoglobin Total Hemoglobin O2 Delivery Device O2 Liters/Min Minute Volume Vent Rate Vent Mode FiO2 Tidal Volume PEEP Peak Inspir Pressure Pressure Support Sodium 135 L Potassium 3.7 Chloride 98 Carbon Dioxide 27 Anion Gap 10 BUN 43 H Creatinine 4.93 H Estim Creat Clear Calc 12 Estimated GFR 12 L Glucose 151 H POC Capillary Glucose 132 H 118 H Lactic Acid 2.1 H Calcium 8.6 Phosphorus 5.1 H Magnesium Total Bilirubin AST ALT Alkaline Phosphatase Ammonia Total Creatine Kinase 169 Troponin I Total Protein Albumin Lipase Nasal MRSA (PCR)
[2025-07-01] MEDS: MIDAZOLAM 100MG/NS 100ML(*CRX) 100 MG/100 ML BAG 7 MG IV CONT (13:42)
[2025-07-01] MEDS: PANTOPRAZOLE SODIUM IV 40 MG VIAL IV PUSH (13:50)
[2025-07-01] MEDS: CEFEPIME 1 GM in SODIUM CHLORIDE 0.9% IV 50 ML 100 ML IVPB (13:50)
[2025-07-01] MEDS: MINERAL OIL/WHITE PETROLATUM OINTMENT 1 APPLIC EACH EYE ×2 (13:51→20:30)
[2025-07-01] MEDS: CENTRAL LINE FLUSH 10 ML IV PUSH ×2 (13:58→22:34)
[2025-07-01 14:37] LABS: Add Urine Microscopic? YES; Glucose Urine UA Negative (Negative); Leukocyte Esterase Ur 3+ LEU/UL (Negative); Nitrate Urine Positive (Negative); Non Pathogenic Casts 0-2; Specific Grav Ur 1.015 (1.001-1.035)
[2025-07-01 14:41] LABS: Appearance Urine Cloudy (Clear)
[2025-07-01 14:47] LABS: Triglycerides 82 mg/dL (<150)
--- NOTE | 2025-07-01 14:49 | WPDNEURCNPN ---
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 Consult date: 07/01/25 HPI: Sukhdev Lowery III is a 70 year old male Admitted to the hospital through the emergency room for the complaints of left lower quadrant abdominal pain radiating to the whole abdomen and with information that he was seen in the ER day before when he was discharged home on oral medications occluding antibiotic but he continued to vomit and the pain got significantly worse patient has had peritoneal dialysis 4 days a week and has his home health nurse was unable to perform a dialysis day of admission to the ER he has ongoing history of 1. Diabetes mellitus and right lower extremity [id number] amputation , his medications included only tamsulosin 0.4mg daily, amlodipine 5mg daily, and he is not allergic to any medications. He was documented to have ongoing history of as mentioned above end-stage renal disease, hypertension, and diabetes mellitus. He has undergone [id number] amputation the right side, and dialysis catheter insertion in addition to AV fistula. Is a former smoker, and does not drink. on initial evaluation in the ER he was hypertensive with blood pressure 184/73, CBC was BC 13.8 hemoglobin 10.4, BUN 59 with creatinine of 6.53, and blood sugar of 287 lactic acid was only 1.4. Admitted to the hospital with diagnosis of peripheral vascular disease, anemia of chronic disease, end-stage renal disease on hemodialysis and diabetes mellitus. He has already been seen by the senior computer specialist. On 06/30 he was intubated with history of code blue and subsequently cardiac arrest and seizures, CT of the brain documented only 2.1cm left para falcine meningioma but no bleed neuro consult was called because patient was having recurrent seizures and at that time it was advised to give him valproic acid intravenously. He is receiving broad-spectrum antibiotics, he has received midazolam. Review of Systems Review of Systems: All systems reviewed & are unremarkable except as noted in HPI and below PMFSH Past Medical History Medical History Respiratory failure Cardiac arrest Depression Anxiety Shingles PAF (paroxysmal atrial fibrillation) PVD (peripheral vascular disease) Anemia End stage renal disease Urinary retention Overweight (BMI 25.0-29.9) Diarrhea HTN (hypertension) IBS (irritable bowel syndrome) Diabetes Surgical History Surgical History History of tonsillectomy History of hemorrhoidectomy Status post below knee amputation of right lower extremity S/P dialysis catheter insertion S/P arteriovenous (AV) fistula creation Family History Family History Father Congestive heart failure Mother Cancer Social History Social History Smoking status: Never smoker Second hand tobacco smoke exposure: Yes Alcohol intake: never Drinks per week: 0 Substance use: never Substance use type: does not use Do You Feel Safe in your Home?: Yes Lack of Transportation: No Lack of Food: Never True Current Housing: I Have Housing Concerned About Future Housing: No Difficulty Paying Gas/Electric Bills: No Difficulty Paying for Meds: No Currently Unemployed: No Education: High School Diploma/GED Difficulty w/ Childcare or Family Care: No Living arrangements: with family Spiritual care concerns: No Meds Home Medications and Allergies Home Medications ?Medication ?Instructions ?Recorded ?Confirmed ?Type ferrous sulfate 324 mg (65 mg 324 mg PO DAILY 12/16/23 06/29/25 History iron) tablet,delayed release tamsulosin 0.4 mg capsule 0.4 mg PO DAILY 12/16/23 06/29/25 History amlodipine 5 mg tablet 5 mg PO DAILY 02/10/24 06/29/25 History aspirin 325 mg tablet,delayed 325 mg PO QAM 30 days #30 tabs 03/05/25 06/29/25 Rx release metoprolol succinate 25 mg 25 mg PO QAM 30 days #30 tabs 05/03/25 06/29/25 Rx tablet,extended release 24 hr (Toprol XL) flecainide 100 mg tablet 100 mg PO Q12H #60 tabs 05/25/25 06/29/25 Rx ciprofloxacin HCl 500 mg tablet 500 mg PO Q12H #20 tabs 06/28/25 06/29/25 Rx dicyclomine 20 mg tablet 20 mg PO TID #30 tabs 06/28/25 06/29/25 Rx hydrocodone 5 mg-acetaminophen 325 1 tablet PO Q6H PRN pain #10 tabs 06/28/25 06/29/25 Rx mg tablet metronidazole 500 mg tablet 500 mg PO BID #20 tabs 06/28/25 06/29/25 Rx ondansetron 4 mg disintegrating 4 mg PO Q8H #14 tabs 06/28/25 06/29/25 Rx tablet escitalopram oxalate 5 mg tablet 5 mg PO DAILY 06/29/25 06/29/25 History Allergies Allergy/AdvReac Type Severity Reaction Status Date / Time No Known Allergies Allergy Verified 06/28/25 09:31 Vital Signs Vital Signs - 24 hr 06/30/25 21:10 06/30/25 21:10 06/30/25 21:20 Temperature 36.7 C Pulse Rate 63 70 Respiratory Rate 18 Blood Pressure 112/63 Pulse Oximetry 100 100 Oxygen Delivery Mechanical Ventilation Fraction of Inspired Oxygen 100 100 06/30/25 21:38 06/30/25 21:39 06/30/25 22:00 Temperature Pulse Rate 63 63 64 Respiratory Rate 18 18 18 Blood Pressure Pulse Oximetry Oxygen Delivery Fraction of Inspired Oxygen 06/30/25 22:00 06/30/25 22:00 06/30/25 22:43 Temperature Pulse Rate 63 64 73 Respiratory Rate 18 22 H Blood Pressure Pulse Oximetry Oxygen Delivery Fraction of Inspired Oxygen 06/30/25 23:40 07/01/25 00:00 07/01/25 00:00 Temperature Pulse Rate 60 65 Respiratory Rate 18 18 Blood Pressure Pulse Oximetry 100 98 Oxygen Delivery Mechanical Ventilation Mechanical Ventilation Fraction of Inspired Oxygen 100 100 07/01/25 00:00 07/01/25 00:00 07/01/25 00:00 Temperature Pulse Rate 65 65 Respiratory Rate 18 Blood Pressure Pulse Oximetry Oxygen Delivery Fraction of Inspired Oxygen 100 07/01/25 01:08 07/01/25 02:00 07/01/25 02:00 Temperature Pulse Rate 63 65 65 Respiratory Rate 16 21 H 21 H Blood Pressure Pulse Oximetry Oxygen Delivery Fraction of Inspired Oxygen 07/01/25 02:00 07/01/25 02:00 07/01/25 02:55 Temperature 36.4 C Pulse Rate 69 65 58 L Respiratory Rate 18 Blood Pressure 131/69 Pulse Oximetry 100 100 Oxygen Delivery Mechanical Ventilation Fraction of Inspired Oxygen 80 07/01/25 04:00 07/01/25 04:00 07/01/25 04:00 Temperature 35.2 C L Pulse Rate 54 L Respiratory Rate 25 H 18 Blood Pressure 124/61 Pulse Oximetry 100 98 Oxygen Delivery Mechanical Ventilation Fraction of Inspired Oxygen 100 60 07/01/25 04:00 07/01/25 05:45 07/01/25 06:00 Temperature 35.9 C L Pulse Rate 64 56 L 75 Respiratory Rate 18 Blood Pressure 138/53 L Pulse Oximetry 100 97 Oxygen Delivery Mechanical Ventilation Fraction of Inspired Oxygen 80 07/01/25 06:00 07/01/25 07:57 07/01/25 08:00 Temperature 35.8 C L Pulse Rate 56 L 68 67 Respiratory Rate 21 H Blood Pressure 111/66 Pulse Oximetry 99 Oxygen Delivery Mechanical Ventilation Fraction of Inspired Oxygen 60 07/01/25 08:00 07/01/25 08:00 07/01/25 09:00 Temperature 35.8 C L 35.8 C L 36.2 C L Pulse Rate 61 67 58 L Respiratory Rate 20 21 H 20 Blood Pressure 111/66 111/66 130/64 Pulse Oximetry 100 99 100 Oxygen Delivery Fraction of Inspired Oxygen 07/01/25 10:00 07/01/25 10:00 07/01/25 10:00 Temperature 36.1 C L 36.1 C L 36.1 C L Pulse Rate 57 L 56 L 57 L Respiratory Rate 16 18 16 Blood Pressure 135/48 L 134/48 L 135/48 L Pulse Oximetry 100 100 100 Oxygen Delivery Fraction of Inspired Oxygen 07/01/25 11:00 07/01/25 11:26 07/01/25 12:00 Temperature 35.9 C L 35.9 C L Pulse Rate 68 62 68 Respiratory Rate 19 20 Blood Pressure 105/42 L 101/40 L Pulse Oximetry 100 100 100 Oxygen Delivery Mechanical Ventilation Fraction of Inspired Oxygen 60 07/01/25 12:40 07/01/25 12:41 07/01/25 13:00 Temperature 36.1 C L Pulse Rate 62 62 66 Respiratory Rate 19 19 Blood Pressure 99/40 L 121/47 L Pulse Oximetry 100 Oxygen Delivery Fraction of Inspired Oxygen 07/01/25 13:42 07/01/25 13:42 07/01/25 14:00 Temperature Pulse Rate 55 L 55 L 53 L Respiratory Rate 16 16 Blood Pressure Pulse Oximetry 100 Oxygen Delivery Mechanical Ventilation Fraction of Inspired Oxygen 60 07/01/25 14:00 Temperature 36.2 C L Pulse Rate 57 L Respiratory Rate 16 Blood Pressure 153/50 H Pulse Oximetry 100 Oxygen Delivery Fraction of Inspired Oxygen Exam Narrative: exam today reveals him to be unresponsive to verbal commands or painful stimuli as he has been on IV medication, head normocephalic with no bruit neck supple with no cervical bruit,, lungs clear with rhonchi, abdomen is soft , neurologically he is unresponsive to painful stimuli, unresponsive to verbal stimuli, neck is supple, extraocular movements with no spontaneous movements or nystagmus, facial grimace absent, no movement of the upper and lower extremities reflexes are absent and plantar responses are neutral Results Labs 07/01/25 11:42 07/01/25 11:42 Labs: Short CBC 06/30/25 07/01/25 07/01/25 Range/Units 21:09 07:45 11:42 WBC 16.4 H 10.1 H 8.5 (4.5-10.0) K/mm3 Hgb 8.6 L 8.2 L 7.9 L (14.0-18.0) g/dL Hct 26.1 L 24.1 L 23.3 L (42.0-52.0) % Plt Count 128 L 112 L 103 L (150-375) k/mm3 BMP 06/30/25 07/01/25 07/01/25 21:09 07:45 11:42 Sodium 136 L 134 L 135 L Potassium 3.7 4.1 3.7 Chloride 99 100 98 Carbon Dioxide 23 24 27 BUN 33 H 43 H D 43 H Creatinine 4.33 H 4.80 H 4.93 H Glucose 202 H 179 H 151 H Calcium 10.0 8.9 8.6 Cardiac Enzymes 06/30/25 07/01/25 07/01/25 Range/Units 21:09 07:45 11:42 Total Creatine Kinase 169 (55-170) U/L Troponin I 0.055 H* 0.464 H* (0.000-0.034) ng/mL Liver Function 06/30/25 07/01/25 Range/Units 21:09 07:45 Total Bilirubin 0.4 0.7 (0.2-1.3) mg/dL AST 484 H 389 H (17-59) U/L ALT 382 H 359 H (6-50) U/L Alkaline Phosphatase 63 52 (38-126) U/L Albumin 3.1 L 3.3 L (3.5-5.1) g/dL Urine 07/01/25 Range/Units 14:02 Urine Color Red H (Yellow) Urine Appearance Cloudy H (Clear) Urine pH 5.0 (5.0-9.0) Ur Specific [place] 1.015 (1.001-1.035) Urine Protein 2+ H (Negative) mg/dL Urine Glucose (UA) Negative (Negative) mg/dL
[2025-07-01 15:27] LABS: Alveolar/Arterial O2 Gradient 310.1 mmHg; Carboxyhemoglobin 1.2 % THb (0-2.0); Fractional Inspired Oxygen 60 %; HCO3 ABG 20.8 mEq/l (22.0-26.0); Methemoglobin ABG 0.3 %THb (0-1.5); Oxygen Content ABG 11.0 %vol (16.0-22.0); Oxygen Saturation ABG 97.9 % (95.0-100.0); PCO2 ABG 26.0 mmHg (35.0-45.0); PO2 ABG 93.3 mmHg (80.0-100.0); PO2 FiO2 Ratio Arterial Blood 1.56 %; Reduced Hemoglobin 3.3 %THb (0-5.0)
[2025-07-01 15:33] LABS: Site Drawn ARTLINE
[2025-07-01] MEDS: VALPROATE SODIUM INJ 1,000 MG in DEXTROSE 5% IN WATER 50 ML 52.5 MG IVPB (17:01)
[2025-07-01] MEDS: PROPOFOL IV EMULSION 100 ML 19.75 MG IV CONT (17:10)
[2025-07-01 17:17] LABS: Creatine Kinase 122 U/L (55-170)
--- NOTE | 2025-07-01 17:41 | PC.NURSE ---
Spoke with Dr. Guerrero at 1400 ordered to increase Propofol and Versed to keep patient from seizure activity. Rass at -3.
[2025-07-01] MEDS: PROPOFOL IV EMULSION 100 ML 12.35 MG IV CONT (22:32)
[2025-07-02] VITALS (39 sets, daily range): BP systolic 96–154; BP diastolic 36–55; PULSE 44–61; RESP 12–18; TEMP 34.9–36.7; O2SAT 94–100
[2025-07-02] MEDS: VALPROATE SODIUM INJ 1,000 MG in DEXTROSE 5% IN WATER 50 ML 52.5 MG IVPB ×3 (00:51→16:49)
[2025-07-02] MEDS: metroNIDAZOLE 500 MG/ISO 100ML 500 MG/100 ML BAG 100 MG IVPB ×3 (03:06→19:26)
--- NOTE | 2025-07-02 03:15 | ECG_ITS ---
Test Date: 2025-07-02 07:08:43 Measurements Intervals [place] Rate: 48 P: 30 IN: 164 QRS: -27 QRSD: 108 T: 5 QT: 471 QTc: 424 Interpretive Statements SINUS BRADYCARDIA BORDERLINE R WAVE PROGRESSION, ANTERIOR LEADS BORDERLINE ST-T WAVE ABNORMALITY- INFERIOR LEADS ABNORMAL ECG Compared to ECG 07/01/2025 11:37:46 HEART RATE HAS DECREASED Prolonged QT interval no longer present Electronically Signed On 07-02-2025 07:51:41 CDT by Nilson Jerez D.O.
[2025-07-02 05:10] LABS: Alveolar/Arterial O2 Gradient 119.0 mmHg; Carboxyhemoglobin 1.6 % THb (0-2.0); Fractional Inspired Oxygen 30 %; HCO3 ABG 23.8 mEq/l (22.0-26.0); Methemoglobin ABG 0.3 %THb (0-1.5); Oxygen Content ABG 10.7 %vol (16.0-22.0); Oxygen Saturation ABG 90.7 % (95.0-100.0); PCO2 ABG 33.8 mmHg (35.0-45.0); PO2 ABG 55.2 mmHg (80.0-100.0); PO2 FiO2 Ratio Arterial Blood 1.84 %; Reduced Hemoglobin 12.0 %THb (0-5.0)
[2025-07-02] MEDS: MIDAZOLAM 100MG/NS 100ML(*CRX) 100 MG/100 ML BAG IV CONT (06:03)
[2025-07-02] MEDS: CENTRAL LINE FLUSH 10 ML IV PUSH ×3 (06:04→22:22)
[2025-07-02 06:26] LABS: Hematocrit 24.1 % (42.0-52.0); Hemoglobin 8.1 g/dL (14.0-18.0); Immature Granulocyte Percent A 0.2 % (0-0.5); Immature Platelet Fraction Pct 2.3 % (0.9-11.2); Lymphocytes Absolute Auto 4.83 K/mm3 (0.9-3.2); Mean Corpuscular HGB Conc 33.6 g/dl (32-36); Mean Corpuscular Hemoglobin 32.1 pg (26-34); Mean Corpuscular Volume 95.6 fl (80-100); Nucleated Red Blood Cells Absolute Auto 0.000 K/mm3 (0.0-0.012); Nucleated Red Blood Cells Perc 0.0 % (0.0-0.2); Platelet Count Result 109 k/mm3 (150-375); Red Blood Count 2.52 M/mm3 (4.6-6.20); White Blood Count 10.1 K/mm3 (4.5-10.0)
[2025-07-02 06:28] LABS: Site Drawn ARTLINE
[2025-07-02 06:29] LABS: Arterial Blood Gas Tidal Volume 400 ml; Arterial Blood Gas Ventilator rate 16 /MIN
[2025-07-02 06:37] LABS: INR 1.5; Prothrombin Time 18.5 Seconds (11.1-14.7)
[2025-07-02 06:39] LABS: Partial Thromboplastin Time 68.5 Seconds (22.3-36.8)
[2025-07-02 06:48] LABS: Alanine Aminotransferase 241 U/L (6-50); Albumin Level 2.6 g/dL (3.5-5.1); Alkaline Phosphatase 70 U/L (38-126); Anion Gap 10 mmol/L (4-12); Aspartate Amino Transferase 136 U/L (17-59); Bilirubin,Total 0.5 mg/dL (0.2-1.3); Blood Urea Nitrogen 53 mg/dL (9-20); Calcium 8.1 mg/dL (8.4-10.2); Carbon Dioxide 25 mmol/L (22-30); Chloride 99 mmol/L (98-107); Creatine Kinase 86 U/L (55-170); Estimated CRCL calculation 10 ml/min; Estimated Glomerular Filt Rate 9; Glucose 114 mg/dL (65-110); Lipase 21 U/L (23-300); Magnesium 2.0 mg/dL (1.6-2.3); Potassium 3.2 mmol/L (3.4-5.0); Sodium 134 mmol/L (137-145); Total Protein 5.1 g/dL (6.3-8.2)
[2025-07-02] MEDS: PROPOFOL IV EMULSION 100 ML 9.88 MG IV CONT ×2 (06:54→17:38)
[2025-07-02 07:36] LABS: Alveolar/Arterial O2 Gradient 279.7 mmHg; Carboxyhemoglobin 1.6 % THb (0-2.0); Fractional Inspired Oxygen 60 %; HCO3 ABG 21.3 mEq/l (22.0-26.0); Methemoglobin ABG 0.3 %THb (0-1.5); Oxygen Content ABG 9.8 %vol (16.0-22.0); Oxygen Saturation ABG 98.9 % (95.0-100.0); PCO2 ABG 24.4 mmHg (35.0-45.0); PO2 ABG 121.3 mmHg (80.0-100.0); PO2 FiO2 Ratio Arterial Blood 2.02 %; Reduced Hemoglobin 1.8 %THb (0-5.0)
[2025-07-02 07:37] LABS: Site Drawn ARTLINE
[2025-07-02 07:38] LABS: Arterial Blood Gas Tidal Volume 400 ml; Arterial Blood Gas Ventilator rate 16 /MIN
[2025-07-02 08:06] LABS: Thyroid Stimulating Hormone 0.493 uIU/mL (0.465-4.680)
[2025-07-02] MEDS: levETIRAcetam 500MG/NACL 100ML 500 MG/100 ML BAG 400 MG IVPB ×2 (09:19→20:17)
[2025-07-02] MEDS: PANTOPRAZOLE SODIUM IV 40 MG VIAL IV PUSH (09:19)
[2025-07-02] MEDS: MINERAL OIL/WHITE PETROLATUM OINTMENT 1 APPLIC EACH EYE ×2 (09:20→20:17)
--- NOTE | 2025-07-02 09:38 | P.PNCA_ITS ---
Progress Note: A&P Assessment and Plan (1) Cardiac arrest: Code(s): I46.9 - Cardiac arrest, cause unspecified Status: Acute Assessment and Plan: Cardiac arrest as detailed above. Patient likely has had a significant anoxic brain injury. Seizure activity noted. Currently rewarming as part of the cooling protocol. Echocardiogram is ordered and pending. Supportive care and further workup and recommendation depending on neurological recovery. Family discussing process of blood drawing care but of is see will need to wait until off of sedation to adequately assess neuro function (2) Diverticulitis: Code(s): K57.92 - Diverticulitis of intestine, part unspecified, without perforation or abscess without bleeding Status: Acute Assessment and Plan: On antibiotic (3) End stage renal disease: Code(s): N18.6 - End stage renal disease Status: Chronic Assessment and Plan: Per nephrology (4) PAF (paroxysmal atrial fibrillation): Code(s): I48.0 - Paroxysmal atrial fibrillation Status: Chronic Assessment and Plan: Hold flecainide and metoprolol Subjective Date/time seen: 07/02/25 09:38 Interval history: 70-year-old admitted for diverticulitis Status post cardiac arrest. See consultation note from yesterday. Date of service 07/02/2025: Patient currently going to the rewarming process. Reportedly has a gag reflex but little else. Is still on sedation however. Review of Systems Review of Systems: All systems reviewed & are unremarkable except as noted in HPI and below Constitutional: Constitutional: Denies chills ENT: Denies epistaxis Respiratory: Respiratory: Denies hemoptysis Gastrointestinal: Gastrointestinal: Reports abdominal pain and Denies melena Genitourinary: Genitourinary: Denies hematuria Hematologic/Lymphatic: Hematologic/Lymphatic: Denies easy bleeding Exam Narrative: Intubated, sedated. Rewarming post cardiac arrest Const: General: comfortable HENMT: Face/Nose/Sinus: Normal nares present Eyes: Sclera: sclerae normal Neck: Neck: supple Chest: Other: No chest deformities Resp: Effort & Inspection: normal respiratory effort Auscultation: diminished lung sounds Cardio: Rate: regular rate Heart sounds: no murmurs GI: Inspection: non-distended Skin: General skin exam: normal color Neuro: Other: Posturing Extrem: General: no edema Other: Right BKA noted Psych: Other: Unresponsive and not responsive to painful stimuli Objective Data Vital Signs Vital Signs: Vital Signs - 24 hr 07/01/25 10:00 07/01/25 10:00 07/01/25 10:00 Temperature 36.1 C L 36.1 C L 36.1 C L Pulse Rate 57 L 56 L 57 L Respiratory Rate 16 18 16 Blood Pressure 135/48 L 134/48 L 135/48 L Pulse Oximetry 100 100 100 Oxygen Delivery Fraction of Inspired Oxygen 07/01/25 10:00 07/01/25 10:00 07/01/25 10:00 Temperature Pulse Rate 56 L 56 L 56 L Respiratory Rate 18 18 Blood Pressure Pulse Oximetry Oxygen Delivery Fraction of Inspired Oxygen 07/01/25 11:00 07/01/25 11:26 07/01/25 12:00 Temperature 35.9 C L 35.9 C L Pulse Rate 68 62 68 Respiratory Rate 19 20 Blood Pressure 105/42 L 101/40 L Pulse Oximetry 100 100 100 Oxygen Delivery Mechanical Ventilation Fraction of Inspired Oxygen 60 07/01/25 12:00 07/01/25 12:00 07/01/25 12:00 Temperature 35.9 C L Pulse Rate 68 Respiratory Rate 21 H Blood Pressure 102/41 L Pulse Oximetry 100 Oxygen Delivery Mechanical Ventilation Fraction of Inspired Oxygen 60 60 07/01/25 12:00 07/01/25 12:00 07/01/25 12:00 Temperature Pulse Rate 68 68 68 Respiratory Rate 21 H 21 H Blood Pressure Pulse Oximetry Oxygen Delivery Fraction of Inspired Oxygen 07/01/25 12:40 07/01/25 12:41 07/01/25 13:00 Temperature 36.1 C L Pulse Rate 62 62 66 Respiratory Rate 19 19 Blood Pressure 99/40 L 121/47 L Pulse Oximetry 100 Oxygen Delivery Fraction of Inspired Oxygen 07/01/25 13:00 07/01/25 13:30 07/01/25 13:42 Temperature 36.1 C L Pulse Rate 66 57 L 55 L Respiratory Rate 19 16 Blood Pressure 128/49 L 154/53 H Pulse Oximetry 100 Oxygen Delivery Fraction of Inspired Oxygen 07/01/25 13:42 07/01/25 14:00 07/01/25 14:00 Temperature 36.2 C L Pulse Rate 55 L 53 L 57 L Respiratory Rate 16 16 Blood Pressure 153/50 H Pulse Oximetry 100 100 Oxygen Delivery Mechanical Ventilation Fraction of Inspired Oxygen 60 07/01/25 14:00 07/01/25 14:00 07/01/25 14:00 Temperature 36.2 C L Pulse Rate 57 L 56 L 56 L Respiratory Rate 16 16 16 Blood Pressure 139/47 L Pulse Oximetry 100 Oxygen Delivery Fraction of Inspired Oxygen 07/01/25 14:00 07/01/25 14:00 07/01/25 14:00 Temperature Pulse Rate 56 L 56 L 56 L Respiratory Rate 16 Blood Pressure 139/47 L Pulse Oximetry Oxygen Delivery Fraction of Inspired Oxygen 07/01/25 14:15 07/01/25 14:30 07/01/25 14:30 Temperature Pulse Rate 53 L 56 L 53 L Respiratory Rate 16 16 Blood Pressure 103/39 L Pulse Oximetry Oxygen Delivery Fraction of Inspired Oxygen 07/01/25 15:00 07/01/25 15:00 07/01/25 16:00 Temperature 36.3 C L 36.3 C L 36.2 C L Pulse Rate 52 L 52 L 50 L Respiratory Rate 16 16 16 Blood Pressure 106/39 L 106/39 L 118/43 L Pulse Oximetry 100 100 100 Oxygen Delivery Fraction of Inspired Oxygen 07/01/25 16:00 07/01/25 16:00 07/01/25 16:00 Temperature 36.2 C L Pulse Rate 50 L 50 L Respiratory Rate 16 16 16 Blood Pressure 118/43 L Pulse Oximetry Oxygen Delivery Fraction of Inspired Oxygen 07/01/25 16:00 07/01/25 16:00 07/01/25 16:00 Temperature Pulse Rate 50 L Respiratory Rate Blood Pressure Pulse Oximetry Oxygen Delivery Mechanical Ventilation Fraction of Inspired Oxygen 60 60 07/01/25 16:28 07/01/25 16:36 07/01/25 17:00 Temperature 36.2 C L 36.0 C L Pulse Rate 51 L 49 L 49 L Respiratory Rate 16 16 Blood Pressure 119/43 L 112/43 L Pulse Oximetry 100 100 100 Oxygen Delivery Mechanical Ventilation Fraction of Inspired Oxygen 60 07/01/25 17:10 07/01/25 17:10 07/01/25 18:00 Temperature 35.8 C L Pulse Rate 49 L 49 L 47 L Respiratory Rate 16 16 16 Blood Pressure 98/39 L Pulse Oximetry 100 Oxygen Delivery Fraction of Inspired Oxygen 07/01/25 18:00 07/01/25 18:00 07/01/25 18:00 Temperature 35.8 C L Pulse Rate 47 L 47 L 47 L Respiratory Rate 16 16 Blood Pressure 98/39 L Pulse Oximetry 100 Oxygen Delivery Fraction of Inspired Oxygen 07/01/25 18:00 07/01/25 19:00 07/01/25 20:00 Temperature 35.5 C L 35.2 C L Pulse Rate 47 L 45 L 44 L Respiratory Rate 16 16 16 Blood Pressure 101/40 L 96/38 L Pulse Oximetry 100 100 Oxygen Delivery Fraction of Inspired Oxygen 07/01/25 20:00 07/01/25 20:00 07/01/25 20:00 Temperature 35.1 C L Pulse Rate 43 L Respiratory Rate 15 Blood Pressure 103/42 L Pulse Oximetry 100 Oxygen Delivery Mechanical Ventilation Fraction of Inspired Oxygen 60 60 07/01/25 20:00 07/01/25 20:10 07/01/25 20:15 Temperature Pulse Rate 44 L 44 L 44 L Respiratory Rate 16 Blood Pressure Pulse Oximetry 100 Oxygen Delivery Mechanical Ventilation Fraction of Inspired Oxygen 60 07/01/25 21:00 07/01/25 21:23 07/01/25 22:00 Temperature 35.1 C L 35.1 C L Pulse Rate 43 L 43 L 43 L Respiratory Rate 16 16 16 Blood Pressure 104/41 L 101/40 L Pulse Oximetry 100 100 Oxygen Delivery Fraction of Inspired Oxygen 07/01/25 22:00 07/01/25 22:32 07/01/25 22:32 Temperature Pulse Rate 44 L 43 L 43 L Respiratory Rate 16 16 Blood Pressure Pulse Oximetry Oxygen Delivery Fraction of Inspired Oxygen 07/01/25 23:00 07/01/25 23:00 07/01/25 23:10 Temperature 34.9 C L Pulse Rate 44 L 44 L 44 L Respiratory Rate 16 16 16 Blood Pressure 101/38 L Pulse Oximetry 100 Oxygen Delivery Fraction of Inspired Oxygen 07/01/25 23:13 07/01/25 23:20 07/01/25 23:51 Temperature Pulse Rate 44 L 44 L 44 L Respiratory Rate 16 Blood Pressure 100/41 L Pulse Oximetry 100 Oxygen Delivery Mechanical Ventilation Fraction of Inspired Oxygen 50 07/02/25 00:00 07/02/25 00:00 07/02/25 00:00 Temperature Pulse Rate 46 L Respiratory Rate Blood Pressure Pulse Oximetry Oxygen Delivery Mechanical Ventilation Fraction of Inspired Oxygen 40 60 07/02/25 00:00 07/02/25 00:00 07/02/25 00:00 Temperature 34.9 C L Pulse Rate 47 L 44 L 44 L Respiratory Rate 16 16 Blood Pressure 130/45 L 104/42 L Pulse Oximetry 100 Oxygen Delivery Fraction of Inspired Oxygen 07/02/25 01:00 07/02/25 02:00 07/02/25 02:00 Temperature 35.1 C L 35.2 C L 35.2 C L Pulse Rate 46 L 47 L 47 L Respiratory Rate 16 16 16 Blood Pressure 109/39 L 97/36 L 96/36 L Pulse Oximetry 99 98 98 Oxygen Delivery Fraction of Inspired Oxygen 07/02/25 02:00 07/02/25 02:00 07/02/25 02:00 Temperature Pulse Rate 47 L 49 L 49 L Respiratory Rate 16 16 Blood Pressure Pulse Oximetry Oxygen Delivery Fraction of Inspired Oxygen 07/02/25 02:00 07/02/25 02:28 07/02/25 03:00 Temperature 35.3 C L Pulse Rate 49 L 47 L 52 L Respiratory Rate 16 Blood Pressure 154/47 H 142/45 H Pulse Oximetry 99 94 Oxygen Delivery Mechanical Ventilation Fraction of Inspired Oxygen 40 07/02/25 04:00 07/02/25 04:00 07/02/25 04:00 Temperature 35.6 C L Pulse Rate 52 L 52 L 61 Respiratory Rate 16 16 Blood Pressure 147/47 H Pulse Oximetry 94 Oxygen Delivery Fraction of Inspired Oxygen 07/02/25 04:00 07/02/25 04:00 07/02/25 04:56 Temperature Pulse Rate 52 L Respiratory Rate Blood Pressure Pulse Oximetry 94 Oxygen Delivery Mechanical Ventilation Mechanical Ventilation Fraction of Inspired Oxygen 60 40 30 07/02/25 05:00 07/02/25 05:57 07/02/25 06:00 Temperature 35.6 C L 35.6 C L Pulse Rate 53 L 52 L 52 L Respiratory Rate 16 16 16 Blood Pressure 150/55 H 149/48 H Pulse Oximetry 100 100 Oxygen Delivery Fraction of Inspired Oxygen 07/02/25 06:00 07/02/25 06:00 07/02/25 06:03 Temperature Pulse Rate 61 52 L 52 L Respiratory Rate 18 16 Blood Pressure Pulse Oximetry Oxygen Delivery Fraction of Inspired Oxygen 07/02/25 06:15 07/02/25 06:54 07/02/25 06:54 Temperature Pulse Rate 52 L 49 L 49 L Respiratory Rate 18 18 Blood Pressure 136/47 L Pulse Oximetry Oxygen Delivery Fraction of Inspired Oxygen 07/02/25 07:00 07/02/25 08:00 07/02/25 08:30 Temperature 35.6 C L 35.6 C L Pulse Rate 49 L 48 L 47 L Respiratory Rate 16 16 Blood Pressure 115/41 L 115/41 L Pulse Oximetry 100 100 100 Oxygen Delivery Mechanical Ventilation Fraction of Inspired Oxygen 40 07/02/25 09:00 Temperature 35.7 C L Pulse Rate 48 L Respiratory Rate 12 Blood Pressure 96/38 L Pulse Oximetry 100 Oxygen Delivery Fraction of Inspired Oxygen Intake/Output Intake/Output: Intake & Output 06/29/25 06/30/25 07/01/25 07/02/25 23:59 23:59 23:59 23:59 Intake Total 2650 1582.0 1198.9 286.0 Output Total 0 585 25 Balance 2650 1582.0 613.9 261.0 Meds/Results Medications: Active Medications Generic Name Dose Route Start Last Admin Trade Name Freq PRN Reason Stop Dose Admin Acetaminophen 650 mg 06/29/25 12:42 Acetaminophen 325 Mg Tablet PO Q6H PRN Mild Pain (1-3) or Fever Amlodipine Besylate 5 mg 06/30/25 09:00 06/30/25 10:04 Amlodipine Besylate 5 Mg Tablet PO 5 mg DAILY SUPA Administration Aspirin 325 mg 06/30/25 09:00 06/30/25 10:04 Aspirin 325 Mg Enteric Tablet PO 325 mg QAM SUPA Administration Dextrose 12.5 gm 06/29/25 12:50 Dextrose 50% 25 Gm/50 Ml Syringe IV PUSH PRN PRN Hypoglycemia Protocol Dicyclomine HCl 20 mg 06/29/25 12:42 Dicyclomine Hcl 10 Mg Capsule PO QID PRN Abdominal Cramping Escitalopram Oxalate 5 mg 06/30/25 09:00 06/30/25 10:06 Escitalopram Oxalate 5 Mg Tablet PO 5 mg DAILY SUPA Administration Ferrous Sulfate 324 mg 06/30/25 09:00 06/30/25 10:05 Ferrous Sulfate [address] BY MOUTH 324 mg DAILY SUPA Administration Flecainide Acetate 100 mg 06/29/25 21:00 06/30/25 21:30 Flecainide Acetate 100 Mg Tablet PO Not Given Q12H SUPA Furosemide 40 mg 07/01/25 09:00 Furosemide Inj 40 Mg/4 Ml Vial IV PUSH BID SUPA Glucagon 1 mg 06/29/25 12:50 Glucagon For Inj 1 Mg Vial IM PRN PRN Hypoglycemia Protocol Glucagon 1 mg 07/01/25 02:06 Glucagon For Inj 1 Mg Vial IM PRN PRN Hypoglycemia Protocol Glucose 15 gm 06/29/25 12:50 Glucose Oral Gel 15 Gm Of Glucse In 37.5 Gm Tube PO PRN PRN Hypoglycemia Protocol Heparin Sodium (Porcine) 5,000 units 07/01/25 14:00 07/02/25 06:04 Heparin Sodium 5,000 Units/Ml Vial SUB-Q 5,000 units Q8HR SUPA Administration Albumin Human 50 mls @ 999 mls/hr 06/29/25 11:31 Albutein IVPB 07/29/25 11:30 Q10M PRN HYPOTENSION Metronidazole 500 mg in 100 mls @ 100 mls/hr 06/29/25 18:00 07/02/25 04:07 Flagyl 500 Mg/Iso Soln 100 Ml IVPB Infused Q8H SUPA Infusion Dextrose 1,000 mls @ 100 mls/hr 06/29/25 12:50 Dextrose 5% 1,000 Ml IVPB PRN PRN Hypoglycemia Protocol Fentanyl Citrate 2,500 mcg in 250 mls @ 5 mls/hr 06/30/25 21:15 07/01/25 14:00 Fentanyl 2,500 Mcg/Ns 250 Ml IV CONT Infused .Q50H SUPA Titration Protocol 50 MCG/HR Midazolam HCl 100 mg in 100 mls @ 5 mls/hr 06/30/25 21:15 07/02/25 06:03 Versed 100 Mg/Ns 100 Ml IV CONT 5 mg/hr .Q20H SUPA 5 mls/hr Administration Protocol 5 MG/HR Levetiracetam 500 mg in 100 mls @ 400 mls/hr 07/01/25 09:00 07/02/25 09:19 Keppra Iv IVPB 400 mls/hr Q12HR SUPA Administration Cefepime HCl 1 gm/ Sodium 50 mls @ 100 mls/hr 07/01/25 14:00 07/01/25 15:14 Chloride IVPB Infused Q24H SPUA Infusion Valproate Sodium 1,000 mg/ 60 mls @ 52.5 mls/hr 07/01/25 17:00 07/02/25 02:00 Dextrose IVPB Infused Q8H SUPA Infusion Cisatracurium Besylate 200 mg/ 100 mls @ 7.407 mls/hr 07/01/25 10:55 Sodium Chloride IV CONT .[id number] SUPA Protocol 3 MCG/KG/MIN Propofol 100 mls @ 9.876 mls/hr 07/01/25 12:35 07/02/25 06:54 Diprivan IV CONT 20 mcg/kg/min .Q10H8M SUPA 9.88 mls/hr Administration Protocol 20 MCG/KG/MIN Norepinephrine Bitartrate 8 mg in 250 mls @ 0 mls/hr 07/01/25 12:35 07/02/25 06:15 Levophed 8 Mg/D5w 250 Ml IV CONT 0 mcg/min .Q0M SUPA 0 mls/hr Titration Protocol Insulin Aspart 3 - 6 units 07/01/25 06:00 07/02/25 06:04 Insulin Aspart (*Bkc) 100 Units/Ml SUB-Q Not Given Q6HR [facility] Protocol Lidocaine/Prilocaine 1 each 06/29/25 11:33 06/29/25 12:57 Lidocaine/Prilocaine Cream 2.5-2.5% Tube TOPICAL 1 each WITH DIALYSIS PRN Administration for dialysis Protocol Metoprolol Succinate 25 mg 06/30/25 09:00 06/30/25 10:06 Metoprolol Succinate Ext Rel 25 Mg Tabcr PO 25 mg QAM SUPA Administration Multi-Ingred Cream/Lotion/Oil/Oint 1 applic 07/01/25 11:00 07/02/25 09:20 Mineral Oil/White Petrolatum Ointment EACH EYE 1 applic Q12HR SUPA Administration Ondansetron HCl 4 mg 06/29/25 10:42 06/30/25 17:05 Ondansetron Inj 4 Mg/2 Ml Vial IV PUSH 4 mg Q4H PRN Administration Nausea Pantoprazole Sodium 40 mg 07/02/25 09:00 07/02/25 09:19 Pantoprazole Sodium Iv 40 Mg Vial IV PUSH 40 mg QAM SUPA Administration Perflutren Lipid Microsphere 0 ml 07/01/25 11:25 Perflutren Lipid Microspheres 1.5 Ml Vial Diluted To 10 Ml Total Volume IV PUSH 07/04/25 11:25 ONCE PRN adequate visualization Protocol Polyethylene Glycol 17 gm 06/29/25 12:42 Polyethylene Glycol 3350 17 Gm Powd.Pack PO QAM PRN Constipation Sodium Chloride 10 ml 07/01/25 14:00 07/02/25 06:04 Central Line Flush IV PUSH 10 ml Q8HR SUPA Administration Sodium Chloride 20 ml 07/01/25 09:09 Central Line Flush IV PUSH PRN PRN after blood draws Tamsulosin HCl 0.4 mg 06/30/25 09:00 06/30/25 10:06 Tamsulosin Hcl 0.4 Mg Capsule PO 0.4 mg DAILY SUPA Administration Radiology Results: ITS Impressions Abdomen/Pelvis CT 06/30/25 11:54 IMPRESSION: 1. No abscess identified. No free intraperitoneal air identified. 2. Small amount of new nonspecific amount of fat stranding and fluid in the abd omen and pelvis. 3. New small right-sided pleural effusion. 4. New tiny left-sided pleural effusion. 5.There are two new moderate-sized bandlike opacities in the right lower lung and a new small bandlike opacity in the left lower lung. Differential includes atelectasis or pneumonia. Correlate clinically. Recommend follow-up to resolution. 6. Redemonstration of the mild left-sided hydronephrosis and mild left-sided hydroureter. No CT evidence for renal, ureteral or bladder calculi. 7. Slight improvement in the concentric thickening of the ramey of the bladder. Correlate clinically. 8. Redemonstration of the short segment focal thickening of the ramey of the distal descending colon and proximal sigmoid colon. Differential includes incomplete bowel wall distention, diverticulitis or mass. Chest CTA 06/30/25 22:43 IMPRESSION: No pulmonary embolus. No thoracic aortic dissection or dilatation. Large bilateral pleural effusions, right greater than left Abdomen X-Ray 07/01/25 07:07 IMPRESSION: 1. Orogastric tube in stomach. 2. Small right pleural effusion with atelectasis and/or pneumonia in the bilateral lower lung zones. Head CT 07/01/25 08:10 IMPRESSION: 1. 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 No acute intracranial process. Abdomen Ultrasound 07/01/25 13:28 IMPRESSION: 1. Common bile duct diameter of 7 mm at the upper limits of normal for age with no evident cholelithiasis, gallbladder dilation or intrahepatic biliary ductal dilation. 2. Right pleural effusion. Chest X-Ray 07/02/25 06:41 Impression: [id number] pleural effusion with moderate pulmonary edema pattern and probable left basilar atelectasis. Support tubes, as above. Extensive left-sided subcutaneous emphysema. Labs Labs: Laboratory Results - last 24 hr 07/01/25 07/01/25 07/01/25 08:20 09:35 11:18 WBC RBC Hgb Hct MCV MCH MCHC RDW Plt Count MPV Immature Gran % (Auto) Neut % (Auto) Lymph % (Auto) [place] % (Auto) Eos % (Auto) Baso % (Auto) Lymph # (Auto) [place] # (Auto) Eos # (Auto) Baso # (Auto) Abs Immat Gran (auto) Absolute Neuts (auto) Absolute Nucleated RBC Nucleated RBC % % Immature Plt Fraction PT INR APTT Puncture Site Artline ABG pH 7.560 H* ABG pCO2 27.3 L ABG pO2 111.1 H ABG PO2/FiO2 Ratio 1.85 ABG HCO3 23.9 ABG O2 Saturation 98.6 ABG O2 Content 10.9 L ABG Base Excess 1.9 A-a Gradient 292.0 Oxyhemoglobin 96.3 Carboxyhemoglobin Methemoglobin Reduced Hemoglobin Total Hemoglobin 7.9 L O2 Delivery Device Ventilator O2 Liters/Min Not Reportable Minute Volume Not Reportable Vent Rate 18 Vent Mode Cmv FiO2 60 Tidal Volume 450 PEEP 5 Peak Inspir Pressure Not Reportable Pressure Support Not Reportable Sodium Potassium Chloride Carbon Dioxide Anion Gap BUN Creatinine Estim Creat Clear Calc Estimated GFR Glucose POC Capillary Glucose 132 H Lactic Acid Calcium Phosphorus Magnesium Total Bilirubin AST ALT Alkaline Phosphatase Total Creatine Kinase Total Protein Albumin Triglycerides Lipase TSH Urine Color Urine Appearance Urine pH Ur Specific [place] Urine Protein Urine Glucose (UA) Urine Ketones Ur Blood (Man) Urine Nitrate Urine Bilirubin Urine Urobilinogen Leukocyte Esterase Rfl Urine RBC Urine WBC Ur Squamous Epith Cells Urine Bacteria Urine Casts Granular Casts Nasal MRSA (PCR) Not detected 07/01/25 07/01/25 07/01/25 11:42 12:24 13:08 WBC 8.5 RBC 2.45 L Hgb 7.9 L Hct 23.3 L MCV 95.1 MCH 32.2 MCHC 33.9 RDW 14.2 Plt Count 103 L MPV 9.3 Immature Gran % (Auto) Neut % (Auto) Lymph % (Auto) [place] % (Auto) Eos % (Auto) Baso % (Auto) Lymph # (Auto) [place] # (Auto) Eos # (Auto) Baso # (Auto) Abs Immat Gran (auto) Absolute Neuts (auto) Absolute Nucleated RBC Nucleated RBC % % Immature Plt Fraction 2.2 PT 17.5 H D INR 1.4 APTT 43.4 H Puncture Site ABG pH ABG pCO2 ABG pO2 ABG PO2/FiO2 Ratio ABG HCO3 ABG O2 Saturation ABG O2 Content ABG Base Excess A-a Gradient Oxyhemoglobin Carboxyhemoglobin Methemoglobin Reduced Hemoglobin Total Hemoglobin O2 Delivery Device O2 Liters/Min Minute Volume Vent Rate Vent Mode FiO2 Tidal Volume PEEP Peak Inspir Pressure Pressure Support Sodium 135 L Potassium 3.7 Chloride 98 Carbon Dioxide 27 Anion Gap 10 BUN 43 H Creatinine 4.93 H Estim Creat Clear Calc 12 Estimated GFR 12 L Glucose 151 H POC Capillary Glucose 118 H 112 H Lactic Acid 2.1 H Calcium 8.6 Phosphorus 5.1 H Magnesium Total Bilirubin AST ALT Alkaline Phosphatase Total Creatine Kinase 169 Total Protein Albumin Triglycerides Lipase TSH Urine Color Urine Appearance Urine pH Ur Specific [place] Urine Protein Urine Glucose (UA) Urine Ketones Ur Blood (Man) Urine Nitrate Urine Bilirubin Urine Urobilinogen Leukocyte Esterase Rfl Urine RBC Urine WBC Ur Squamous Epith Cells Urine Bacteria Urine Casts Granular Casts Nasal MRSA (PCR) 07/01/25 07/01/25 07/01/25 14:02 14:10 14:12 WBC RBC Hgb Hct MCV MCH MCHC RDW Plt Count MPV Immature Gran % (Auto) Neut % (Auto) Lymph % (Auto) [place] % (Auto) Eos % (Auto) Baso % (Auto) Lymph # (Auto) [place] # (Auto) Eos # (Auto) Baso # (Auto) Abs Immat Gran (auto) Absolute Neuts (auto) Absolute Nucleated RBC Nucleated RBC % % Immature Plt Fraction PT INR APTT Puncture Site ABG pH ABG pCO2 ABG pO2 ABG PO2/FiO2 Ratio ABG HCO3 ABG O2 Saturation ABG O2 Content ABG Base Excess A-a Gradient Oxyhemoglobin Carboxyhemoglobin Methemoglobin Reduced Hemoglobin Total Hemoglobin O2 Delivery Device O2 Liters/Min Minute Volume Vent Rate Vent Mode FiO2 Tidal Volume PEEP Peak Inspir Pressure Pressure Support Sodium Potassium Chloride Carbon Dioxide Anion Gap BUN Creatinine Estim Creat Clear Calc Estimated GFR Glucose POC Capillary Glucose 109 H Lactic Acid Calcium Phosphorus Magnesium Total Bilirubin AST ALT Alkaline Phosphatase Total Creatine Kinase Total Protein Albumin Triglycerides 82 Lipase TSH Urine Color Red H Urine Appearance Cloudy H Urine pH 5.0 Ur Specific [place] 1.015 Urine Protein 2+ H Urine Glucose (UA) Negative Urine Ketones Negative Ur Blood (Man) 2+ H Urine Nitrate Positive H Urine Bilirubin 1+ H Urine Urobilinogen 0.2 Leukocyte Esterase Rfl 3+ H Urine RBC >100 H Urine WBC >100 H Ur Squamous Epith Cells Many H Urine Bacteria 4+ H Urine Casts 0-2 Granular Casts Present Nasal MRSA (PCR) 07/01/25 07/01/25 07/01/25 15:03 15:15 16:07 WBC RBC Hgb Hct MCV MCH MCHC RDW Plt Count MPV Immature Gran % (Auto) Neut % (Auto) Lymph % (Auto) [place] % (Auto) Eos % (Auto) Baso % (Auto) Lymph # (Auto) [place] # (Auto) Eos # (Auto) Baso # (Auto) Abs Immat Gran (auto) Absolute Neuts (auto) Absolute Nucleated RBC Nucleated RBC % % Immature Plt Fraction PT INR APTT Puncture Site Artline ABG pH 7.521 H* ABG pCO2 26.0 L ABG pO2 93.3 ABG PO2/FiO2 Ratio 1.56 ABG HCO3 20.8 L ABG O2 Saturation 97.9 ABG O2 Content 11.0 L ABG Base Excess -1.5 A-a Gradient 310.1 Oxyhemoglobin 95.2 Carboxyhemoglobin 1.2 Methemoglobin 0.3 Reduced Hemoglobin 3.3 Total Hemoglobin 8.1 L O2 Delivery Device Ventilator O2 Liters/Min Not Reportable Minute Volume Vent Rate Vent Mode FiO2 60 Tidal Volume PEEP Peak Inspir Pressure Pressure Support Sodium Potassium Chloride Carbon Dioxide Anion Gap BUN Creatinine Estim Creat Clear Calc Estimated GFR Glucose POC Capillary Glucose 104 107 H Lactic Acid Calcium Phosphorus Magnesium Total Bilirubin AST ALT Alkaline Phosphatase Total Creatine Kinase Total Protein Albumin Triglycerides Lipase TSH Urine Color Urine Appearance Urine pH Ur Specific [place] Urine Protein Urine Glucose (UA) Urine Ketones Ur Blood (Man) Urine Nitrate Urine Bilirubin Urine Urobilinogen Leukocyte Esterase Rfl Urine RBC Urine WBC Ur Squamous Epith Cells Urine Bacteria Urine Casts Granular Casts Nasal MRSA (PCR) 07/01/25 07/01/25 07/01/25 16:54 17:07 18:10 WBC RBC Hgb Hct MCV MCH MCHC RDW Plt Count MPV Immature Gran % (Auto) Neut % (Auto) Lymph % (Auto) [place] % (Auto) Eos % (Auto) Baso % (Auto) Lymph # (Auto) [place] # (Auto) Eos # (Auto) Baso # (Auto) Abs Immat Gran (auto) Absolute Neuts (auto) Absolute Nucleated RBC Nucleated RBC % % Immature Plt Fraction PT INR APTT Puncture Site ABG pH ABG pCO2 ABG pO2 ABG PO2/FiO2 Ratio ABG HCO3 ABG O2 Saturation ABG O2 Content ABG Base Excess A-a Gradient Oxyhemoglobin Carboxyhemoglobin Methemoglobin Reduced Hemoglobin Total Hemoglobin O2 Delivery Device O2 Liters/Min Minute Volume Vent Rate Vent Mode FiO2 Tidal Volume PEEP Peak Inspir Pressure Pressure Support Sodium Potassium Chloride Carbon Dioxide Anion Gap BUN Creatinine Estim Creat Clear Calc Estimated GFR Glucose POC Capillary Glucose 104 106 H Lactic Acid Calcium Phosphorus Magnesium Total Bilirubin AST ALT Alkaline Phosphatase Total Creatine Kinase 122 Total Protein Albumin Triglycerides Lipase TSH Urine Color Urine Appearance Urine pH Ur Specific [place] Urine Protein Urine Glucose (UA) Urine Ketones Ur Blood (Man) Urine Nitrate Urine Bilirubin Urine Urobilinogen Leukocyte Esterase Rfl Urine RBC Urine WBC Ur Squamous Epith Cells Urine Bacteria Urine Casts Granular Casts Nasal MRSA (PCR) 07/01/25 07/01/25 07/01/25 19:00 20:03 21:03 WBC RBC Hgb Hct MCV MCH MCHC RDW Plt Count MPV Immature Gran % (Auto) Neut % (Auto) Lymph % (Auto) [place] % (Auto) Eos % (Auto) Baso % (Auto) Lymph # (Auto) [place] # (Auto) Eos # (Auto) Baso # (Auto) Abs Immat Gran (auto) Absolute Neuts (auto) Absolute Nucleated RBC Nucleated RBC % % Immature Plt Fraction PT INR APTT Puncture Site ABG pH ABG pCO2 ABG pO2 ABG PO2/FiO2 Ratio ABG HCO3 ABG O2 Saturation ABG O2 Content ABG Base Excess A-a Gradient Oxyhemoglobin Carboxyhemoglobin Methemoglobin Reduced Hemoglobin Total Hemoglobin O2 Delivery Device O2 Liters/Min Minute Volume Vent Rate Vent Mode FiO2 Tidal Volume PEEP Peak Inspir Pressure Pressure Support Sodium Potassium Chloride Carbon Dioxide Anion Gap BUN Creatinine Estim Creat Clear Calc Estimated GFR Glucose POC Capillary Glucose 95 87 87 Lactic Acid Calcium Phosphorus Magnesium Total Bilirubin AST ALT Alkaline Phosphatase Total Creatine Kinase Total Protein Albumin Triglycerides Lipase TSH Urine Color Urine Appearance Urine pH Ur Specific [place] Urine Protein Urine Glucose (UA) Urine Ketones Ur Blood (Man) Urine Nitrate Urine Bilirubin Urine Urobilinogen Leukocyte Esterase Rfl Urine RBC Urine WBC Ur Squamous Epith Cells Urine Bacteria Urine Casts Granular Casts Nasal MRSA (PCR) 07/01/25 07/01/25 07/02/25 22:05 23:04 00:05 WBC RBC Hgb Hct MCV MCH MCHC RDW Plt Count MPV Immature Gran % (Auto) Neut % (Auto) Lymph % (Auto) [place] % (Auto) Eos % (Auto) Baso % (Auto) Lymph # (Auto) [place] # (Auto) Eos # (Auto) Baso # (Auto) Abs Immat Gran (auto) Absolute Neuts (auto) Absolute Nucleated RBC Nucleated RBC % % Immature Plt Fraction PT INR APTT Puncture Site ABG pH ABG pCO2 ABG pO2 ABG PO2/FiO2 Ratio ABG HCO3 ABG O2 Saturation ABG O2 Content ABG Base Excess A-a Gradient Oxyhemoglobin Carboxyhemoglobin Methemoglobin Reduced Hemoglobin Total Hemoglobin O2 Delivery Device O2 Liters/Min Minute Volume Vent Rate Vent Mode FiO2 Tidal Volume PEEP Peak Inspir Pressure Pressure Support Sodium Potassium Chloride Carbon Dioxide Anion Gap BUN Creatinine Estim Creat Clear Calc Estimated GFR Glucose POC Capillary Glucose 91 88 83 Lactic Acid Calcium Phosphorus Magnesium Total Bilirubin AST ALT Alkaline Phosphatase Total Creatine Kinase Total Protein Albumin Triglycerides Lipase TSH Urine Color Urine Appearance Urine pH Ur Specific [place] Urine Protein Urine Glucose (UA) Urine Ketones Ur Blood (Man) Urine Nitrate Urine Bilirubin Urine Urobilinogen Leukocyte Esterase Rfl Urine RBC Urine WBC Ur Squamous Epith Cells Urine Bacteria Urine Casts Granular Casts Nasal MRSA (PCR) 07/02/25 07/02/25 07/02/25 01:03 02:10 03:06 WBC RBC Hgb Hct MCV MCH MCHC RDW Plt Count MPV Immature Gran % (Auto) Neut % (Auto) Lymph % (Auto) [place] % (Auto) Eos % (Auto) Baso % (Auto) Lymph # (Auto) [place] # (Auto) Eos # (Auto) Baso # (Auto) Abs Immat Gran (auto) Absolute Neuts (auto) Absolute Nucleated RBC Nucleated RBC % % Immature Plt Fraction PT INR APTT Puncture Site ABG pH ABG pCO2 ABG pO2 ABG PO2/FiO2 Ratio ABG HCO3 ABG O2 Saturation ABG O2 Content ABG Base Excess A-a Gradient Oxyhemoglobin Carboxyhemoglobin Methemoglobin Reduced Hemoglobin Total Hemoglobin O2 Delivery Device O2 Liters/Min Minute Volume Vent Rate Vent Mode FiO2 Tidal Volume PEEP Peak Inspir Pressure Pressure Support Sodium Potassium Chloride Carbon Dioxide Anion Gap BUN Creatinine Estim Creat Clear Calc Estimated GFR Glucose POC Capillary Glucose 84 99 102 Lactic Acid Calcium Phosphorus Magnesium Total Bilirubin AST ALT Alkaline Phosphatase Total Creatine Kinase Total Protein Albumin Triglycerides Lipase TSH Urine Color Urine Appearance Urine pH Ur Specific [place] Urine Protein Urine Glucose (UA) Urine Ketones Ur Blood (Man) Urine Nitrate Urine Bilirubin Urine Urobilinogen Leukocyte Esterase Rfl Urine RBC Urine WBC Ur Squamous Epith Cells Urine Bacteria Urine Casts Granular Casts Nasal MRSA (PCR) 07/02/25 07/02/25 07/02/25 05:00 05:03 05:36 WBC RBC Hgb Hct MCV MCH MCHC RDW Plt Count MPV Immature Gran % (Auto) Neut % (Auto) Lymph % (Auto) [place] % (Auto) Eos % (Auto) Baso % (Auto) Lymph # (Auto) [place] # (Auto) Eos # (Auto) Baso # (Auto) Abs Immat Gran (auto) Absolute Neuts (auto) Absolute Nucleated RBC Nucleated RBC % % Immature Plt Fraction PT INR APTT Puncture Site Artline ABG pH 7.465 H ABG pCO2 33.8 L ABG pO2 55.2 L ABG PO2/FiO2 Ratio 1.84 ABG HCO3 23.8 ABG O2 Saturation 90.7 L ABG O2 Content 10.7 L ABG Base Excess 0.3 A-a Gradient 119.0 Oxyhemoglobin 86.1 L* Carboxyhemoglobin 1.6 Methemoglobin 0.3 Reduced Hemoglobin 12.0 H Total Hemoglobin 8.8 L O2 Delivery Device Ventilator O2 Liters/Min Not Reportable Minute Volume Not Reportable Vent Rate 16 Vent Mode Cmv FiO2 30 Tidal Volume 400 PEEP 5 Peak Inspir Pressure Not Reportable Pressure Support Not Reportable Sodium Potassium Chloride Carbon Dioxide Anion Gap BUN Creatinine Estim Creat Clear Calc Estimated GFR Glucose POC Capillary Glucose 112 H 115 H Lactic Acid Calcium Phosphorus Magnesium Total Bilirubin AST ALT Alkaline Phosphatase Total Creatine Kinase Total Protein Albumin Triglycerides Lipase TSH Urine Color Urine Appearance Urine pH Ur Specific [place] Urine Protein Urine Glucose (UA) Urine Ketones Ur Blood (Man) Urine Nitrate Urine Bilirubin Urine Urobilinogen Leukocyte Esterase Rfl Urine RBC Urine WBC Ur Squamous Epith Cells Urine Bacteria Urine Casts Granular Casts Nasal MRSA (PCR) 07/02/25 07/02/25 07/02/25 06:02 06:14 07:03 WBC 10.1 H RBC 2.52 L Hgb 8.1 L Hct 24.1 L MCV 95.6 MCH 32.1 MCHC 33.6 RDW 14.4 Plt Count 109 L MPV 9.5 Immature Gran % (Auto) 0.2 Neut % (Auto) 45.9 Lymph % (Auto) 47.6 H [place] % (Auto) 3.9 Eos % (Auto) 1.7 Baso % (Auto) 0.7 Lymph # (Auto) 4.83 H [place] # (Auto) 0.4 Eos # (Auto) 0.2 Baso # (Auto) 0.1 Abs Immat Gran (auto) 0.02 Absolute Neuts (auto) 4.7 Absolute Nucleated RBC 0.000 Nucleated RBC % 0.0 % Immature Plt Fraction 2.3 PT 18.5 H INR 1.5 APTT 68.5 H Puncture Site ABG pH ABG pCO2 ABG pO2 ABG PO2/FiO2 Ratio ABG HCO3 ABG O2 Saturation ABG O2 Content ABG Base Excess A-a Gradient Oxyhemoglobin Carboxyhemoglobin Methemoglobin Reduced Hemoglobin Total Hemoglobin O2 Delivery Device O2 Liters/Min Minute Volume Vent Rate Vent Mode FiO2 Tidal Volume PEEP Peak Inspir Pressure Pressure Support Sodium 134 L Potassium 3.2 L Chloride 99 Carbon Dioxide 25 Anion Gap 10 BUN 53 H D Creatinine 6.04 H Estim Creat Clear Calc 10 Estimated GFR 9 L Glucose 114 H POC Capillary Glucose 114 H 111 H Lactic Acid 1.5 Calcium 8.1 L Phosphorus 4.5 Magnesium 2.0 Total Bilirubin 0.5 AST 136 H ALT 241 H Alkaline Phosphatase 70 Total Creatine Kinase 86 Total Protein 5.1 L Albumin 2.6 L Triglycerides Lipase 21 L TSH 0.493 Urine Color Urine Appearance Urine pH Ur Specific [place] Urine Protein Urine Glucose (UA) Urine Ketones Ur Blood (Man) Urine Nitrate Urine Bilirubin Urine Urobilinogen Leukocyte Esterase Rfl Urine RBC Urine WBC Ur Squamous Epith Cells Urine Bacteria Urine Casts Granular Casts Nasal MRSA (PCR) 07/02/25 07/02/25 07/02/25 07:33 08:10 09:12 WBC RBC Hgb Hct MCV MCH MCHC RDW Plt Count MPV Immature Gran % (Auto) Neut % (Auto) Lymph % (Auto) [place] % (Auto) Eos % (Auto) Baso % (Auto) Lymph # (Auto) [place] # (Auto) Eos # (Auto) Baso # (Auto) Abs Immat Gran (auto) Absolute Neuts (auto) Absolute Nucleated RBC Nucleated RBC % % Immature Plt Fraction PT INR APTT Puncture Site Artline ABG pH 7.559 H* ABG pCO2 24.4 L ABG pO2 121.3 H ABG PO2/FiO2 Ratio 2.02 ABG HCO3 21.3 L ABG O2 Saturation 98.9 ABG O2 Content 9.8 L ABG Base Excess -0.6 A-a Gradient 279.7 Oxyhemoglobin 96.3 Carboxyhemoglobin 1.6 Methemoglobin 0.3 Reduced Hemoglobin 1.8 Total Hemoglobin 7.0 L* O2 Delivery Device Ventilator O2 Liters/Min Not Reportable Minute Volume Not Reportable Vent Rate 16 Vent Mode Cmv FiO2 60 Tidal Volume 400 PEEP 5 Peak Inspir Pressure Not Reportable Pressure Support Not Reportable Sodium Potassium Chloride Carbon Dioxide Anion Gap BUN Creatinine Estim Creat Clear Calc Estimated GFR Glucose POC Capillary Glucose 108 H 120 H Lactic Acid Calcium Phosphorus Magnesium Total Bilirubin AST ALT Alkaline Phosphatase Total Creatine Kinase Total Protein Albumin Triglycerides Lipase TSH Urine Color Urine Appearance Urine pH Ur Specific [place] Urine Protein Urine Glucose (UA) Urine Ketones Ur Blood (Man) Urine Nitrate Urine Bilirubin Urine Urobilinogen Leukocyte Esterase Rfl Urine RBC Urine WBC Ur Squamous Epith Cells Urine Bacteria Urine Casts Granular Casts Nasal MRSA (PCR)
--- NOTE | 2025-07-02 10:49 | P.PNNP_ITS ---
Progress Note: A&P Assessment and Plan (1) End stage renal disease: Code(s): N18.6 - End stage renal disease Status: Chronic Assessment and Plan: * normally does home hemodialysis 4x/week * HD * His numbers are okay today. * Undergoing cooling protocol. * Electrolytes look okay * Volume status looks okay * Chest x-ray shows small process in the right base. * Will hold off on dialysis again today. * Discussed with Dr. Guerrero (2) Diverticulitis: Code(s): K57.92 - Diverticulitis of intestine, part unspecified, without perforation or abscess without bleeding Status: Acute Assessment and Plan: * as suspected from recent CT of A/P: * short segment focal thickening of the ramey of the distal descending colon and proximal sigmoid colon. Differential includes incomplete bowel wall distention, diverticulitis or mass...recommend follow-up to resolution. * repeat CT (06/30): Re-demonstration of the short segment focal thickening of the ramey of the distal descending colon and proximal sigmoid colon * on cefepime * IV anti-emetics as needed * blood cultures no growth to date (48hours) * continue supportive therapy (3) PAF (paroxysmal atrial fibrillation): Code(s): I48.0 - Paroxysmal atrial fibrillation Status: Chronic Assessment and Plan: * Heart rate in the 50s and 60s * on anticoagulation * Amiodarone and metoprolol are held (4) Anemia: Code(s): D64.9 - Anemia, unspecified Status: Acute Assessment and Plan: * due to ESRD and acute illness * getting Epogen with HD * will give subcu EPO today (5) HTN (hypertension): Qualifiers: Hypertension type: unspecified Qualified Code(s): I10 - Essential (primary) hypertension Code(s): I10 - Essential (primary) hypertension Status: Chronic Assessment and Plan: * Systolic 90s to 130s * follow trend of hemodynamics (6) Diabetes: Qualifiers: Diabetes mellitus type: type 2 Diabetes mellitus care home insulin use: without care home use Diabetes mellitus complication status: with hyperglycemia Qualified Code(s): E11.65 - Type 2 diabetes mellitus with hyperglycemia Code(s): E11.9 - Type 2 diabetes mellitus without complications Status: Chronic Assessment and Plan: * follow accu-checks * appears diet control as an outpatinet * glycemic control per hospitalist Will continue to follow. Subjective Date/time seen: 07/02/25 10:49 Interval history: patient is on the ventilator. No longer seizing. Looks comfortable He is sedated Exam Narrative: WDWN with constant movements suggestive of seizures on the ventilator. skin no rash or subcu nodules head ncat lungs clear cor reg no rub or gallop abd BS+ nontender and soft ext no edema. Neuro nonfocal Objective Data Vital Signs Vital Signs: Vital Signs - 24 hr 07/01/25 11:00 07/01/25 11:26 07/01/25 12:00 Temperature 96.7 F L 96.7 F L Pulse Rate 68 62 68 Respiratory Rate 19 20 Blood Pressure 105/42 L 101/40 L Pulse Oximetry 100 100 100 Oxygen Delivery Mechanical Ventilation Fraction of Inspired Oxygen 60 07/01/25 12:00 07/01/25 12:00 07/01/25 12:00 Temperature 96.7 F L Pulse Rate 68 Respiratory Rate 21 H Blood Pressure 102/41 L Pulse Oximetry 100 Oxygen Delivery Mechanical Ventilation Fraction of Inspired Oxygen 60 60 07/01/25 12:00 07/01/25 12:00 07/01/25 12:00 Temperature Pulse Rate 68 68 68 Respiratory Rate 21 H 21 H Blood Pressure Pulse Oximetry Oxygen Delivery Fraction of Inspired Oxygen 07/01/25 12:40 07/01/25 12:41 07/01/25 13:00 Temperature 96.9 F L Pulse Rate 62 62 66 Respiratory Rate 19 19 Blood Pressure 99/40 L 121/47 L Pulse Oximetry 100 Oxygen Delivery Fraction of Inspired Oxygen 07/01/25 13:00 07/01/25 13:30 07/01/25 13:42 Temperature 96.9 F L Pulse Rate 66 57 L 55 L Respiratory Rate 19 16 Blood Pressure 128/49 L 154/53 H Pulse Oximetry 100 Oxygen Delivery Fraction of Inspired Oxygen 07/01/25 13:42 07/01/25 14:00 07/01/25 14:00 Temperature 97.1 F L Pulse Rate 55 L 53 L 57 L Respiratory Rate 16 16 Blood Pressure 153/50 H Pulse Oximetry 100 100 Oxygen Delivery Mechanical Ventilation Fraction of Inspired Oxygen 60 07/01/25 14:00 07/01/25 14:00 07/01/25 14:00 Temperature 97.1 F L Pulse Rate 57 L 56 L 56 L Respiratory Rate 16 16 16 Blood Pressure 139/47 L Pulse Oximetry 100 Oxygen Delivery Fraction of Inspired Oxygen 07/01/25 14:00 07/01/25 14:00 07/01/25 14:00 Temperature Pulse Rate 56 L 56 L 56 L Respiratory Rate 16 Blood Pressure 139/47 L Pulse Oximetry Oxygen Delivery Fraction of Inspired Oxygen 07/01/25 14:15 07/01/25 14:30 07/01/25 14:30 Temperature Pulse Rate 53 L 56 L 53 L Respiratory Rate 16 16 Blood Pressure 103/39 L Pulse Oximetry Oxygen Delivery Fraction of Inspired Oxygen 07/01/25 15:00 07/01/25 15:00 07/01/25 16:00 Temperature 97.4 F L 97.4 F L 97.2 F L Pulse Rate 52 L 52 L 50 L Respiratory Rate 16 16 16 Blood Pressure 106/39 L 106/39 L 118/43 L Pulse Oximetry 100 100 100 Oxygen Delivery Fraction of Inspired Oxygen 07/01/25 16:00 07/01/25 16:00 07/01/25 16:00 Temperature 97.2 F L Pulse Rate 50 L 50 L Respiratory Rate 16 16 16 Blood Pressure 118/43 L Pulse Oximetry Oxygen Delivery Fraction of Inspired Oxygen 07/01/25 16:00 07/01/25 16:00 07/01/25 16:00 Temperature Pulse Rate 50 L Respiratory Rate Blood Pressure Pulse Oximetry Oxygen Delivery Mechanical Ventilation Fraction of Inspired Oxygen 60 60 07/01/25 16:28 07/01/25 16:36 07/01/25 17:00 Temperature 97.1 F L 96.8 F L Pulse Rate 51 L 49 L 49 L Respiratory Rate 16 16 Blood Pressure 119/43 L 112/43 L Pulse Oximetry 100 100 100 Oxygen Delivery Mechanical Ventilation Fraction of Inspired Oxygen 60 07/01/25 17:10 07/01/25 17:10 07/01/25 18:00 Temperature 96.4 F L Pulse Rate 49 L 49 L 47 L Respiratory Rate 16 16 16 Blood Pressure 98/39 L Pulse Oximetry 100 Oxygen Delivery Fraction of Inspired Oxygen 07/01/25 18:00 07/01/25 18:00 07/01/25 18:00 Temperature 96.4 F L Pulse Rate 47 L 47 L 47 L Respiratory Rate 16 16 Blood Pressure 98/39 L Pulse Oximetry 100 Oxygen Delivery Fraction of Inspired Oxygen 07/01/25 18:00 07/01/25 19:00 07/01/25 20:00 Temperature 95.9 F L 95.4 F L Pulse Rate 47 L 45 L 44 L Respiratory Rate 16 16 16 Blood Pressure 101/40 L 96/38 L Pulse Oximetry 100 100 Oxygen Delivery Fraction of Inspired Oxygen 07/01/25 20:00 07/01/25 20:00 07/01/25 20:00 Temperature 95.1 F L Pulse Rate 43 L Respiratory Rate 15 Blood Pressure 103/42 L Pulse Oximetry 100 Oxygen Delivery Mechanical Ventilation Fraction of Inspired Oxygen 60 60 07/01/25 20:00 07/01/25 20:10 07/01/25 20:15 Temperature Pulse Rate 44 L 44 L 44 L Respiratory Rate 16 Blood Pressure Pulse Oximetry 100 Oxygen Delivery Mechanical Ventilation Fraction of Inspired Oxygen 60 07/01/25 21:00 07/01/25 21:23 07/01/25 22:00 Temperature 95.2 F L 95.1 F L Pulse Rate 43 L 43 L 43 L Respiratory Rate 16 16 16 Blood Pressure 104/41 L 101/40 L Pulse Oximetry 100 100 Oxygen Delivery Fraction of Inspired Oxygen 07/01/25 22:00 07/01/25 22:32 07/01/25 22:32 Temperature Pulse Rate 44 L 43 L 43 L Respiratory Rate 16 16 Blood Pressure Pulse Oximetry Oxygen Delivery Fraction of Inspired Oxygen 07/01/25 23:00 07/01/25 23:00 07/01/25 23:10 Temperature 94.9 F L Pulse Rate 44 L 44 L 44 L Respiratory Rate 16 16 16 Blood Pressure 101/38 L Pulse Oximetry 100 Oxygen Delivery Fraction of Inspired Oxygen 07/01/25 23:13 07/01/25 23:20 07/01/25 23:51 Temperature Pulse Rate 44 L 44 L 44 L Respiratory Rate 16 Blood Pressure 100/41 L Pulse Oximetry 100 Oxygen Delivery Mechanical Ventilation Fraction of Inspired Oxygen 50 07/02/25 00:00 07/02/25 00:00 07/02/25 00:00 Temperature Pulse Rate 46 L Respiratory Rate Blood Pressure Pulse Oximetry Oxygen Delivery Mechanical Ventilation Fraction of Inspired Oxygen 40 60 07/02/25 00:00 07/02/25 00:00 07/02/25 00:00 Temperature 94.9 F L Pulse Rate 47 L 44 L 44 L Respiratory Rate 16 16 Blood Pressure 130/45 L 104/42 L Pulse Oximetry 100 Oxygen Delivery Fraction of Inspired Oxygen 07/02/25 01:00 07/02/25 02:00 07/02/25 02:00 Temperature 95.1 F L 95.4 F L 95.4 F L Pulse Rate 46 L 47 L 47 L Respiratory Rate 16 16 16 Blood Pressure 109/39 L 97/36 L 96/36 L Pulse Oximetry 99 98 98 Oxygen Delivery Fraction of Inspired Oxygen 07/02/25 02:00 07/02/25 02:00 07/02/25 02:00 Temperature Pulse Rate 47 L 49 L 49 L Respiratory Rate 16 16 Blood Pressure Pulse Oximetry Oxygen Delivery Fraction of Inspired Oxygen 07/02/25 02:00 07/02/25 02:28 07/02/25 03:00 Temperature 95.5 F L Pulse Rate 49 L 47 L 52 L Respiratory Rate 16 Blood Pressure 154/47 H 142/45 H Pulse Oximetry 99 94 Oxygen Delivery Mechanical Ventilation Fraction of Inspired Oxygen 40 07/02/25 04:00 07/02/25 04:00 07/02/25 04:00 Temperature 96.1 F L Pulse Rate 52 L 52 L 61 Respiratory Rate 16 16 Blood Pressure 147/47 H Pulse Oximetry 94 Oxygen Delivery Fraction of Inspired Oxygen 07/02/25 04:00 07/02/25 04:00 07/02/25 04:56 Temperature Pulse Rate 52 L Respiratory Rate Blood Pressure Pulse Oximetry 94 Oxygen Delivery Mechanical Ventilation Mechanical Ventilation Fraction of Inspired Oxygen 60 40 30 07/02/25 05:00 07/02/25 05:57 07/02/25 06:00 Temperature 96.1 F L 96.1 F L Pulse Rate 53 L 52 L 52 L Respiratory Rate 16 16 16 Blood Pressure 150/55 H 149/48 H Pulse Oximetry 100 100 Oxygen Delivery Fraction of Inspired Oxygen 07/02/25 06:00 07/02/25 06:00 07/02/25 06:03 Temperature Pulse Rate 61 52 L 52 L Respiratory Rate 18 16 Blood Pressure Pulse Oximetry Oxygen Delivery Fraction of Inspired Oxygen 07/02/25 06:15 07/02/25 06:54 07/02/25 06:54 Temperature Pulse Rate 52 L 49 L 49 L Respiratory Rate 18 18 Blood Pressure 136/47 L Pulse Oximetry Oxygen Delivery Fraction of Inspired Oxygen 07/02/25 07:00 07/02/25 08:00 07/02/25 08:30 Temperature 96.0 F L 96.1 F L Pulse Rate 49 L 48 L 47 L Respiratory Rate 16 16 Blood Pressure 115/41 L 115/41 L Pulse Oximetry 100 100 100 Oxygen Delivery Mechanical Ventilation Fraction of Inspired Oxygen 40 07/02/25 09:00 07/02/25 10:00 07/02/25 10:00 Temperature 96.2 F L 96.3 F L 96.3 F L Pulse Rate 48 L 48 L 47 L Respiratory Rate 12 12 12 Blood Pressure 96/38 L 113/41 L 106/39 L Pulse Oximetry 100 100 100 Oxygen Delivery Fraction of Inspired Oxygen Intake/Output Intake/Output: Intake & Output 06/29/25 06/30/25 07/01/25 07/02/25 23:59 23:59 23:59 23:59 Intake Total 2650 1582.0 1198.9 386.0 Output Total 0 585 30 Balance 2650 1582.0 613.9 356.0 Meds/Results Medications: Active Medications Generic Name Dose Route Start Last Admin Trade Name Freq PRN Reason Stop Dose Admin Acetaminophen 650 mg 06/29/25 12:42 Acetaminophen 325 Mg Tablet PO Q6H PRN Mild Pain (1-3) or Fever Amlodipine Besylate 5 mg 06/30/25 09:00 06/30/25 10:04 Amlodipine Besylate 5 Mg Tablet PO 5 mg DAILY SUPA Administration Aspirin 325 mg 06/30/25 09:00 06/30/25 10:04 Aspirin 325 Mg Enteric Tablet PO 325 mg QAM SUPA Administration Dextrose 12.5 gm 06/29/25 12:50 Dextrose 50% 25 Gm/50 Ml Syringe IV PUSH PRN PRN Hypoglycemia Protocol Dicyclomine HCl 20 mg 06/29/25 12:42 Dicyclomine Hcl 10 Mg Capsule PO QID PRN Abdominal Cramping Escitalopram Oxalate 5 mg 06/30/25 09:00 06/30/25 10:06 Escitalopram Oxalate 5 Mg Tablet PO 5 mg DAILY SPUA Administration Ferrous Sulfate 324 mg 06/30/25 09:00 06/30/25 10:05 Ferrous Sulfate [address] BY MOUTH 324 mg DAILY SUPA Administration Flecainide Acetate 100 mg 06/29/25 21:00 06/30/25 21:30 Flecainide Acetate 100 Mg Tablet PO Not Given Q12H SUPA Furosemide 40 mg 07/01/25 09:00 Furosemide Inj 40 Mg/4 Ml Vial IV PUSH BID SUPA Glucagon 1 mg 06/29/25 12:50 Glucagon For Inj 1 Mg Vial IM PRN PRN Hypoglycemia Protocol Glucagon 1 mg 07/01/25 02:06 Glucagon For Inj 1 Mg Vial IM PRN PRN Hypoglycemia Protocol Glucose 15 gm 06/29/25 12:50 Glucose Oral Gel 15 Gm Of Glucse In 37.5 Gm Tube PO PRN PRN Hypoglycemia Protocol Heparin Sodium (Porcine) 5,000 units 07/01/25 14:00 07/02/25 06:04 Heparin Sodium 5,000 Units/Ml Vial SUB-Q 5,000 units Q8HR SUPA Administration Albumin Human 50 mls @ 999 mls/hr 06/29/25 11:31 Albutein IVPB 07/29/25 11:30 Q10M PRN HYPOTENSION Metronidazole 500 mg in 100 mls @ 100 mls/hr 06/29/25 18:00 07/02/25 10:47 Flagyl 500 Mg/Iso Soln 100 Ml IVPB 100 mls/hr Q8H SUPA Administration Dextrose 1,000 mls @ 100 mls/hr 06/29/25 12:50 Dextrose 5% 1,000 Ml IVPB PRN PRN Hypoglycemia Protocol Fentanyl Citrate 2,500 mcg in 250 mls @ 5 mls/hr 06/30/25 21:15 07/01/25 14:00 Fentanyl 2,500 Mcg/Ns 250 Ml IV CONT Infused .Q50H SUPA Titration Protocol 50 MCG/HR Midazolam HCl 100 mg in 100 mls @ 5 mls/hr 06/30/25 21:15 07/02/25 06:03 Versed 100 Mg/Ns 100 Ml IV CONT 5 mg/hr .Q20H SUPA 5 mls/hr Administration Protocol 5 MG/HR Levetiracetam 500 mg in 100 mls @ 400 mls/hr 07/01/25 09:00 07/02/25 09:35 Keppra Iv IVPB Infused Q12HR SUPA Infusion Cefepime HCl 1 gm/ Sodium 50 mls @ 100 mls/hr 07/01/25 14:00 07/01/25 15:14 Chloride IVPB Infused Q24H SUPA Infusion Valproate Sodium 1,000 mg/ 60 mls @ 52.5 mls/hr 07/01/25 17:00 07/02/25 09:41 Dextrose IVPB 52.5 mls/hr Q8H SUPA Administration Cisatracurium Besylate 200 mg/ 100 mls @ 7.407 mls/hr 07/01/25 10:55 Sodium Chloride IV CONT .[id number] SUPA Protocol 3 MCG/KG/MIN Propofol 100 mls @ 9.876 mls/hr 07/01/25 12:35 07/02/25 06:54 Diprivan IV CONT 20 mcg/kg/min .Q10H8M SUPA 9.88 mls/hr Administration Protocol 20 MCG/KG/MIN Norepinephrine Bitartrate 8 mg in 250 mls @ 0 mls/hr 07/01/25 12:35 07/02/25 06:15 Levophed 8 Mg/D5w 250 Ml IV CONT 0 mcg/min .Q0M SUPA 0 mls/hr Titration Protocol Insulin Aspart 3 - 6 units 07/01/25 06:00 07/02/25 06:04 Insulin Aspart (*Bkc) 100 Units/Ml SUB-Q Not Given Q6HR [facility] Protocol Lidocaine/Prilocaine 1 each 06/29/25 11:33 06/29/25 12:57 Lidocaine/Prilocaine Cream 2.5-2.5% Tube TOPICAL 1 each WITH DIALYSIS PRN Administration for dialysis Protocol Metoprolol Succinate 25 mg 06/30/25 09:00 06/30/25 10:06 Metoprolol Succinate Ext Rel 25 Mg Tabcr PO 25 mg QAM [facility] Administration Multi-Ingred Cream/Lotion/Oil/Oint 1 applic 07/01/25 11:00 07/02/25 09:20 Mineral Oil/White Petrolatum Ointment EACH EYE 1 applic Q12HR SUPA Administration Ondansetron HCl 4 mg 06/29/25 10:42 06/30/25 17:05 Ondansetron Inj 4 Mg/2 Ml Vial IV PUSH 4 mg Q4H PRN Administration Nausea Pantoprazole Sodium 40 mg 07/02/25 09:00 07/02/25 09:19 Pantoprazole Sodium Iv 40 Mg Vial IV PUSH 40 mg QAM SUPA Administration Perflutren Lipid Microsphere 0 ml 07/01/25 11:25 Perflutren Lipid Microspheres 1.5 Ml Vial Diluted To 10 Ml Total Volume IV PUSH 07/04/25 11:25 ONCE PRN adequate visualization Protocol Polyethylene Glycol 17 gm 06/29/25 12:42 Polyethylene Glycol 3350 17 Gm Powd.Pack PO QAM PRN Constipation Sodium Chloride 10 ml 07/01/25 14:00 07/02/25 06:04 Central Line Flush IV PUSH 10 ml Q8HR SUPA Administration Sodium Chloride 20 ml 07/01/25 09:09 Central Line Flush IV PUSH PRN PRN after blood draws Tamsulosin HCl 0.4 mg 06/30/25 09:00 06/30/25 10:06 Tamsulosin Hcl 0.4 Mg Capsule PO 0.4 mg DAILY SUPA Administration Radiology Results: ITS Impressions Abdomen/Pelvis CT 06/30/25 11:54 IMPRESSION: 1. No abscess identified. No free intraperitoneal air identified. 2. Small amount of new nonspecific amount of fat stranding and fluid in the abdomen and pelvis. 3. New small right-sided pleural effusion. 4. New tiny left-sided pleural effusion. 5.There are two new moderate-sized bandlike opacities in the right lower lung and a new small bandlike opacity in the left lower lung. Differential includes atelectasis or pneumonia. Correlate clinically. Recommend follow-up to resolution. 6. Redemonstration of the mild left-sided hydronephrosis and mild left-sided hydroureter. No CT evidence for renal, ureteral or bladder calculi. 7. Slight improvement in the concentric thickening of the ramey of the bladder. Correlate clinically. 8. Redemonstration of the short segment focal thickening of the ramey of the distal descending colon and proximal sigmoid colon. Differential includes incomplete bowel wall distention, diverticulitis or mass. Chest CTA 06/30/25 22:43 IMPRESSION: No pulmonary embolus. No thoracic aortic dissection or dilatation. Large bilateral pleural effusions, right greater than left Abdomen X-Ray 07/01/25 07:07 IMPRESSION: 1. Orogastric tube in stomach. 2. Small right pleural effusion with atelectasis and/or pneumonia in the bilateral lower lung zones. Head CT 07/01/25 08:10 IMPRESSION: 1. 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 No acute intracranial process. Abdomen Ultrasound 07/01/25 13:28 IMPRESSION: 1. Common bile duct diameter of 7 mm at the upper limits of normal for age with no evident cholelithiasis, gallbladder dilation or intrahepatic biliary ductal dilation. 2. Right pleural effusion. Chest X-Ray 07/02/25 06:41 Impression: [id number] pleural effusion with moderate pulmonary edema pattern and probable left basilar atelectasis. Support tubes, as above. Extensive left-sided subcutaneous emphysema. Labs Labs: Laboratory Results - last 24 hr 07/01/25 07/01/25 07/01/25 11:18 11:42 12:24 WBC 8.5 RBC 2.45 L Hgb 7.9 L Hct 23.3 L MCV 95.1 MCH 32.2 MCHC 33.9 RDW 14.2 Plt Count 103 L MPV 9.3 Immature Gran % (Auto) Neut % (Auto) Lymph % (Auto) [place] % (Auto) Eos % (Auto) Baso % (Auto) Lymph # (Auto) [place] # (Auto) Eos # (Auto) Baso # (Auto) Abs Immat Gran (auto) Absolute Neuts (auto) Absolute Nucleated RBC Nucleated RBC % % Immature Plt Fraction 2.2 PT 17.5 H D INR 1.4 APTT 43.4 H Puncture Site ABG pH ABG pCO2 ABG pO2 ABG PO2/FiO2 Ratio ABG HCO3 ABG O2 Saturation ABG O2 Content ABG Base Excess A-a Gradient Oxyhemoglobin Carboxyhemoglobin Methemoglobin Reduced Hemoglobin Total Hemoglobin O2 Delivery Device O2 Liters/Min Minute Volume Vent Rate Vent Mode FiO2 Tidal Volume PEEP Peak Inspir Pressure Pressure Support Sodium 135 L Potassium 3.7 Chloride 98 Carbon Dioxide 27 Anion Gap 10 BUN 43 H Creatinine 4.93 H Estim Creat Clear Calc 12 Estimated GFR 12 L Glucose 151 H POC Capillary Glucose 132 H 118 H Lactic Acid 2.1 H Calcium 8.6 Phosphorus 5.1 H Magnesium Total Bilirubin AST ALT Alkaline Phosphatase Total Creatine Kinase 169 Total Protein Albumin Triglycerides Lipase TSH Urine Color Urine Appearance Urine pH Ur Specific [place] Urine Protein Urine Glucose (UA) Urine Ketones Ur Blood (Man) Urine Nitrate Urine Bilirubin Urine Urobilinogen Leukocyte Esterase Rfl Urine RBC Urine WBC Ur Squamous Epith Cells Urine Bacteria Urine Casts Granular Casts 07/01/25 07/01/25 07/01/25 13:08 14:02 14:10 WBC RBC Hgb Hct MCV MCH MCHC RDW Plt Count MPV Immature Gran % (Auto) Neut % (Auto) Lymph % (Auto) [place] % (Auto) Eos % (Auto) Baso % (Auto) Lymph # (Auto) [place] # (Auto) Eos # (Auto) Baso # (Auto) Abs Immat Gran (auto) Absolute Neuts (auto) Absolute Nucleated RBC Nucleated RBC % % Immature Plt Fraction PT INR APTT Puncture Site ABG pH ABG pCO2 ABG pO2 ABG PO2/FiO2 Ratio ABG HCO3 ABG O2 Saturation ABG O2 Content ABG Base Excess A-a Gradient Oxyhemoglobin Carboxyhemoglobin Methemoglobin Reduced Hemoglobin Total Hemoglobin O2 Delivery Device O2 Liters/Min Minute Volume Vent Rate Vent Mode FiO2 Tidal Volume PEEP Peak Inspir Pressure Pressure Support Sodium Potassium Chloride Carbon Dioxide Anion Gap BUN Creatinine Estim Creat Clear Calc Estimated GFR Glucose POC Capillary Glucose 112 H 109 H Lactic Acid Calcium Phosphorus Magnesium Total Bilirubin AST ALT Alkaline Phosphatase Total Creatine Kinase Total Protein Albumin Triglycerides Lipase TSH Urine Color Red H Urine Appearance Cloudy H Urine pH 5.0 Ur Specific [place] 1.015 Urine Protein 2+ H Urine Glucose (UA) Negative Urine Ketones Negative Ur Blood (Man) 2+ H Urine Nitrate Positive H Urine Bilirubin 1+ H Urine Urobilinogen 0.2 Leukocyte Esterase Rfl 3+ H Urine RBC >100 H Urine WBC >100 H Ur Squamous Epith Cells Many H Urine Bacteria 4+ H Urine Casts 0-2 Granular Casts Present 07/01/25 07/01/25 07/01/25 14:12 15:03 15:15 WBC RBC Hgb Hct MCV MCH MCHC RDW Plt Count MPV Immature Gran % (Auto) Neut % (Auto) Lymph % (Auto) [place] % (Auto) Eos % (Auto) Baso % (Auto) Lymph # (Auto) [place] # (Auto) Eos # (Auto) Baso # (Auto) Abs Immat Gran (auto) Absolute Neuts (auto) Absolute Nucleated RBC Nucleated RBC % % Immature Plt Fraction PT INR APTT Puncture Site Artline ABG pH 7.521 H* ABG pCO2 26.0 L ABG pO2 93.3 ABG PO2/FiO2 Ratio 1.56 ABG HCO3 20.8 L ABG O2 Saturation 97.9 ABG O2 Content 11.0 L ABG Base Excess -1.5 A-a Gradient 310.1 Oxyhemoglobin 95.2 Carboxyhemoglobin 1.2 Methemoglobin 0.3 Reduced Hemoglobin 3.3 Total Hemoglobin 8.1 L O2 Delivery Device Ventilator O2 Liters/Min Not Reportable Minute Volume Vent Rate Vent Mode FiO2 60 Tidal Volume PEEP Peak Inspir Pressure Pressure Support Sodium Potassium Chloride Carbon Dioxide Anion Gap BUN Creatinine Estim Creat Clear Calc Estimated GFR Glucose POC Capillary Glucose 104 Lactic Acid Calcium Phosphorus Magnesium Total Bilirubin AST ALT Alkaline Phosphatase Total Creatine Kinase Total Protein Albumin Triglycerides 82 Lipase TSH Urine Color Urine Appearance Urine pH Ur Specific [place] Urine Protein Urine Glucose (UA) Urine Ketones Ur Blood (Man) Urine Nitrate Urine Bilirubin Urine Urobilinogen Leukocyte Esterase Rfl Urine RBC Urine WBC Ur Squamous Epith Cells Urine Bacteria Urine Casts Granular Casts 07/01/25 07/01/25 07/01/25 16:07 16:54 17:07 WBC RBC Hgb Hct MCV MCH MCHC RDW Plt Count MPV Immature Gran % (Auto) Neut % (Auto) Lymph % (Auto) [place] % (Auto) Eos % (Auto) Baso % (Auto) Lymph # (Auto) [place] # (Auto) Eos # (Auto) Baso # (Auto) Abs Immat Gran (auto) Absolute Neuts (auto) Absolute Nucleated RBC Nucleated RBC % % Immature Plt Fraction PT INR APTT Puncture Site ABG pH ABG pCO2 ABG pO2 ABG PO2/FiO2 Ratio ABG HCO3 ABG O2 Saturation ABG O2 Content ABG Base Excess A-a Gradient Oxyhemoglobin Carboxyhemoglobin Methemoglobin Reduced Hemoglobin Total Hemoglobin O2 Delivery Device O2 Liters/Min Minute Volume Vent Rate Vent Mode FiO2 Tidal Volume PEEP Peak Inspir Pressure Pressure Support Sodium Potassium Chloride Carbon Dioxide Anion Gap BUN Creatinine Estim Creat Clear Calc Estimated GFR Glucose POC Capillary Glucose 107 H 104 Lactic Acid Calcium Phosphorus Magnesium Total Bilirubin AST ALT Alkaline Phosphatase Total Creatine Kinase 122 Total Protein Albumin Triglycerides Lipase TSH Urine Color Urine Appearance Urine pH Ur Specific [place] Urine Protein Urine Glucose (UA) Urine Ketones Ur Blood (Man) Urine Nitrate Urine Bilirubin Urine Urobilinogen Leukocyte Esterase Rfl Urine RBC Urine WBC Ur Squamous Epith Cells Urine Bacteria Urine Casts Granular Casts 07/01/25 07/01/25 07/01/25 18:10 19:00 20:03 WBC RBC Hgb Hct MCV MCH MCHC RDW Plt Count MPV Immature Gran % (Auto) Neut % (Auto) Lymph % (Auto) [place] % (Auto) Eos % (Auto) Baso % (Auto) Lymph # (Auto) [place] # (Auto) Eos # (Auto) Baso # (Auto) Abs Immat Gran (auto) Absolute Neuts (auto) Absolute Nucleated RBC Nucleated RBC % % Immature Plt Fraction PT INR APTT Puncture Site ABG pH ABG pCO2 ABG pO2 ABG PO2/FiO2 Ratio ABG HCO3 ABG O2 Saturation ABG O2 Content ABG Base Excess A-a Gradient Oxyhemoglobin Carboxyhemoglobin Methemoglobin Reduced Hemoglobin Total Hemoglobin O2 Delivery Device O2 Liters/Min Minute Volume Vent Rate Vent Mode FiO2 Tidal Volume PEEP Peak Inspir Pressure Pressure Support Sodium Potassium Chloride Carbon Dioxide Anion Gap BUN Creatinine Estim Creat Clear Calc Estimated GFR Glucose POC Capillary Glucose 106 H 95 87 Lactic Acid Calcium Phosphorus Magnesium Total Bilirubin AST ALT Alkaline Phosphatase Total Creatine Kinase Total Protein Albumin Triglycerides Lipase TSH Urine Color Urine Appearance Urine pH Ur Specific [place] Urine Protein Urine Glucose (UA) Urine Ketones Ur Blood (Man) Urine Nitrate Urine Bilirubin Urine Urobilinogen Leukocyte Esterase Rfl Urine RBC Urine WBC Ur Squamous Epith Cells Urine Bacteria Urine Casts Granular Casts 07/01/25 07/01/25 07/01/25 21:03 22:05 23:04 WBC RBC Hgb Hct MCV MCH MCHC RDW Plt Count MPV Immature Gran % (Auto) Neut % (Auto) Lymph % (Auto) [place] % (Auto) Eos % (Auto) Baso % (Auto) Lymph # (Auto) [place] # (Auto) Eos # (Auto) Baso # (Auto) Abs Immat Gran (auto) Absolute Neuts (auto) Absolute Nucleated RBC Nucleated RBC % % Immature Plt Fraction PT INR APTT Puncture Site ABG pH ABG pCO2 ABG pO2 ABG PO2/FiO2 Ratio ABG HCO3 ABG O2 Saturation ABG O2 Content ABG Base Excess A-a Gradient Oxyhemoglobin Carboxyhemoglobin Methemoglobin Reduced Hemoglobin Total Hemoglobin O2 Delivery Device O2 Liters/Min Minute Volume Vent Rate Vent Mode FiO2 Tidal Volume PEEP Peak Inspir Pressure Pressure Support Sodium Potassium Chloride Carbon Dioxide Anion Gap BUN Creatinine Estim Creat Clear Calc Estimated GFR Glucose POC Capillary Glucose 87 91 88 Lactic Acid Calcium Phosphorus Magnesium Total Bilirubin AST ALT Alkaline Phosphatase Total Creatine Kinase Total Protein Albumin Triglycerides Lipase TSH Urine Color Urine Appearance Urine pH Ur Specific [place] Urine Protein Urine Glucose (UA) Urine Ketones Ur Blood (Man) Urine Nitrate Urine Bilirubin Urine Urobilinogen Leukocyte Esterase Rfl Urine RBC Urine WBC Ur Squamous Epith Cells Urine Bacteria Urine Casts Granular Casts 07/02/25 07/02/25 07/02/25 00:05 01:03 02:10 WBC RBC Hgb Hct MCV MCH MCHC RDW Plt Count MPV Immature Gran % (Auto) Neut % (Auto) Lymph % (Auto) [place] % (Auto) Eos % (Auto) Baso % (Auto) Lymph # (Auto) [place] # (Auto) Eos # (Auto) Baso # (Auto) Abs Immat Gran (auto) Absolute Neuts (auto) Absolute Nucleated RBC Nucleated RBC % % Immature Plt Fraction PT INR APTT Puncture Site ABG pH ABG pCO2 ABG pO2 ABG PO2/FiO2 Ratio ABG HCO3 ABG O2 Saturation ABG O2 Content ABG Base Excess A-a Gradient Oxyhemoglobin Carboxyhemoglobin Methemoglobin Reduced Hemoglobin Total Hemoglobin O2 Delivery Device O2 Liters/Min Minute Volume Vent Rate Vent Mode FiO2 Tidal Volume PEEP Peak Inspir Pressure Pressure Support Sodium Potassium Chloride Carbon Dioxide Anion Gap BUN Creatinine Estim Creat Clear Calc Estimated GFR Glucose POC Capillary Glucose 83 84 99 Lactic Acid Calcium Phosphorus Magnesium Total Bilirubin AST ALT Alkaline Phosphatase Total Creatine Kinase Total Protein Albumin Triglycerides Lipase TSH Urine Color Urine Appearance Urine pH Ur Specific [place] Urine Protein Urine Glucose (UA) Urine Ketones Ur Blood (Man) Urine Nitrate Urine Bilirubin Urine Urobilinogen Leukocyte Esterase Rfl Urine RBC Urine WBC Ur Squamous Epith Cells Urine Bacteria Urine Casts Granular Casts 07/02/25 07/02/25 07/02/25 03:06 05:00 05:03 WBC RBC Hgb Hct MCV MCH MCHC RDW Plt Count MPV Immature Gran % (Auto) Neut % (Auto) Lymph % (Auto) [place] % (Auto) Eos % (Auto) Baso % (Auto) Lymph # (Auto) [place] # (Auto) Eos # (Auto) Baso # (Auto) Abs Immat Gran (auto) Absolute Neuts (auto) Absolute Nucleated RBC Nucleated RBC % % Immature Plt Fraction PT INR APTT Puncture Site Artline ABG pH 7.465 H ABG pCO2 33.8 L ABG pO2 55.2 L ABG PO2/FiO2 Ratio 1.84 ABG HCO3 23.8 ABG O2 Saturation 90.7 L ABG O2 Content 10.7 L ABG Base Excess 0.3 A-a Gradient 119.0 Oxyhemoglobin 86.1 L* Carboxyhemoglobin 1.6 Methemoglobin 0.3 Reduced Hemoglobin 12.0 H Total Hemoglobin 8.8 L O2 Delivery Device Ventilator O2 Liters/Min Not Reportable Minute Volume Not Reportable Vent Rate 16 Vent Mode Cmv FiO2 30 Tidal Volume 400 PEEP 5 Peak Inspir Pressure Not Reportable Pressure Support Not Reportable Sodium Potassium Chloride Carbon Dioxide Anion Gap BUN Creatinine Estim Creat Clear Calc Estimated GFR Glucose POC Capillary Glucose 102 112 H Lactic Acid Calcium Phosphorus Magnesium Total Bilirubin AST ALT Alkaline Phosphatase Total Creatine Kinase Total Protein Albumin Triglycerides Lipase TSH Urine Color Urine Appearance Urine pH Ur Specific [place] Urine Protein Urine Glucose (UA) Urine Ketones Ur Blood (Man) Urine Nitrate Urine Bilirubin Urine Urobilinogen Leukocyte Esterase Rfl Urine RBC Urine WBC Ur Squamous Epith Cells Urine Bacteria Urine Casts Granular Casts 07/02/25 07/02/25 07/02/25 05:36 06:02 06:14 WBC 10.1 H RBC 2.52 L Hgb 8.1 L Hct 24.1 L MCV 95.6 MCH 32.1 MCHC 33.6 RDW 14.4 Plt Count 109 L MPV 9.5 Immature Gran % (Auto) 0.2 Neut % (Auto) 45.9 Lymph % (Auto) 47.6 H [place] % (Auto) 3.9 Eos % (Auto) 1.7 Baso % (Auto) 0.7 Lymph # (Auto) 4.83 H [place] # (Auto) 0.4 Eos # (Auto) 0.2 Baso # (Auto) 0.1 Abs Immat Gran (auto) 0.02 Absolute Neuts (auto) 4.7 Absolute Nucleated RBC 0.000 Nucleated RBC % 0.0 % Immature Plt Fraction 2.3 PT 18.5 H INR 1.5 APTT 68.5 H Puncture Site ABG pH ABG pCO2 ABG pO2 ABG PO2/FiO2 Ratio ABG HCO3 ABG O2 Saturation ABG O2 Content ABG Base Excess A-a Gradient Oxyhemoglobin Carboxyhemoglobin Methemoglobin Reduced Hemoglobin Total Hemoglobin O2 Delivery Device O2 Liters/Min Minute Volume Vent Rate Vent Mode FiO2 Tidal Volume PEEP Peak Inspir Pressure Pressure Support Sodium 134 L Potassium 3.2 L Chloride 99 Carbon Dioxide 25 Anion Gap 10 BUN 53 H D Creatinine 6.04 H Estim Creat Clear Calc 10 Estimated GFR 9 L Glucose 114 H POC Capillary Glucose 115 H 114 H Lactic Acid 1.5 Calcium 8.1 L Phosphorus 4.5 Magnesium 2.0 Total Bilirubin 0.5 AST 136 H ALT 241 H Alkaline Phosphatase 70 Total Creatine Kinase 86 Total Protein 5.1 L Albumin 2.6 L Triglycerides Lipase 21 L TSH 0.493 Urine Color Urine Appearance Urine pH Ur Specific [place] Urine Protein Urine Glucose (UA) Urine Ketones Ur Blood (Man) Urine Nitrate Urine Bilirubin Urine Urobilinogen Leukocyte Esterase Rfl Urine RBC Urine WBC Ur Squamous Epith Cells Urine Bacteria Urine Casts Granular Casts 07/02/25 07/02/25 07/02/25 07:03 07:33 08:10 WBC RBC Hgb Hct MCV MCH MCHC RDW Plt Count MPV Immature Gran % (Auto) Neut % (Auto) Lymph % (Auto) [place] % (Auto) Eos % (Auto) Baso % (Auto) Lymph # (Auto) [place] # (Auto) Eos # (Auto) Baso # (Auto) Abs Immat Gran (auto) Absolute Neuts (auto) Absolute Nucleated RBC Nucleated RBC % % Immature Plt Fraction PT INR APTT Puncture Site Artline ABG pH 7.559 H* ABG pCO2 24.4 L ABG pO2 121.3 H ABG PO2/FiO2 Ratio 2.02 ABG HCO3 21.3 L ABG O2 Saturation 98.9 ABG O2 Content 9.8 L ABG Base Excess -0.6 A-a Gradient 279.7 Oxyhemoglobin 96.3 Carboxyhemoglobin 1.6 Methemoglobin 0.3 Reduced Hemoglobin 1.8 Total Hemoglobin 7.0 L* O2 Delivery Device Ventilator O2 Liters/Min Not Reportable Minute Volume Not Reportable Vent Rate 16 Vent Mode Cmv FiO2 60 Tidal Volume 400 PEEP 5 Peak Inspir Pressure Not Reportable Pressure Support Not Reportable Sodium Potassium Chloride Carbon Dioxide Anion Gap BUN Creatinine Estim Creat Clear Calc Estimated GFR Glucose POC Capillary Glucose 111 H 108 H Lactic Acid Calcium Phosphorus Magnesium Total Bilirubin AST ALT Alkaline Phosphatase Total Creatine Kinase Total Protein Albumin Triglycerides Lipase TSH Urine Color Urine Appearance Urine pH Ur Specific [place] Urine Protein Urine Glucose (UA) Urine Ketones Ur Blood (Man) Urine Nitrate Urine Bilirubin Urine Urobilinogen Leukocyte Esterase Rfl Urine RBC Urine WBC Ur Squamous Epith Cells Urine Bacteria Urine Casts Granular Casts 07/02/25 07/02/25 09:12 10:02 WBC RBC Hgb Hct MCV MCH MCHC RDW Plt Count MPV Immature Gran % (Auto) Neut % (Auto) Lymph % (Auto) [place] % (Auto) Eos % (Auto) Baso % (Auto) Lymph # (Auto) [place] # (Auto) Eos # (Auto) Baso # (Auto) Abs Immat Gran (auto) Absolute Neuts (auto) Absolute Nucleated RBC Nucleated RBC % % Immature Plt Fraction PT INR APTT Puncture Site ABG pH ABG pCO2 ABG pO2 ABG PO2/FiO2 Ratio ABG HCO3 ABG O2 Saturation ABG O2 Content ABG Base Excess A-a Gradient Oxyhemoglobin Carboxyhemoglobin Methemoglobin Reduced Hemoglobin Total Hemoglobin O2 Delivery Device O2 Liters/Min Minute Volume Vent Rate Vent Mode FiO2 Tidal Volume PEEP Peak Inspir Pressure Pressure Support Sodium Potassium Chloride Carbon Dioxide Anion Gap BUN Creatinine Estim Creat Clear Calc Estimated GFR Glucose POC Capillary Glucose 120 H 106 H Lactic Acid Calcium Phosphorus Magnesium Total Bilirubin AST ALT Alkaline Phosphatase Total Creatine Kinase Total Protein Albumin Triglycerides Lipase TSH Urine Color Urine Appearance Urine pH Ur Specific [place] Urine Protein Urine Glucose (UA) Urine Ketones Ur Blood (Man) Urine Nitrate Urine Bilirubin Urine Urobilinogen Leukocyte Esterase Rfl Urine RBC Urine WBC Ur Squamous Epith Cells Urine Bacteria Urine Casts Granular Casts
--- NOTE | 2025-07-02 11:01 | P.PNINT_ITS ---
Progress Note: A&P Assessment and Plan (1) Cardiac arrest: Code(s): I46.9 - Cardiac arrest, cause unspecified Status: Acute Assessment and Plan: 06/29: 8:26 p.m. to 8:44 p.m. cardiac arrest with ACLS protocol and return of spontaneous circulation -etiology unknown, could be aspiration, arrhythmia, hypoxic -prior to that patient was last seen well at shift change which is approximately 7:00 p.m. -unknown amount of down time prior to the time he was found unresponsive -started patient on TTM, will maintain body temperature at 36?C -follow TTM protocol -patient currently on the rewarming phase of TTM, once patient is at normal body temperature was start weaning sedation off to allow patient to wake up. 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 No thoracic aortic dissection or dilatation. Large bilateral pleural effusions right greater than left (2) Acute respiratory failure with hypoxia: Code(s): J96.01 - Acute respiratory failure with hypoxia Status: Acute Assessment and Plan: Respiratory failure likely related to cardiac arrest -large bilateral pleural effusions -patient will require thoracentesis at some point once he is more stable -currently on CMV mode of ventilation peep of 5, 60% FiO2 with adequate O2 sats. Wean FiO2 to maintain O2 sats > 92% -chest x-ray and ABGs reviewed, ventilator adjusted -sedated with propofol, fentanyl and Versed infusion, continue until rewarming process as completed. (3) ESRD on hemodialysis: Code(s): N18.6 - End stage renal disease; Z99.2 - Dependence on renal dialysis Status: Acute Assessment and Plan: Patient has a history of end-stage renal disease on hemodialysis which he gets at home -nephrology following -electrolytes and volume status looks okay this morning, continues to be on the rewarming phase, discussed with hospice care sales consultant, who feels we can delay dialysis until 07/03/2025 (4) Diverticulitis: Code(s): K57.92 - Diverticulitis of intestine, part unspecified, without perforation or abscess without bleeding Status: Acute Assessment and Plan: 06/28: Patient presented the ED with abdominal pain, nausea vomiting, CT scan of the abdomen pelvis showed diverticulitis and discharged home on antibiotics. Pain worsened and he could not keep the antibiotics further medications down because of nausea and vomiting. 06/29: Patient presented back to the ED with similar complaints and was admitted to the medical floor with clear liquid diet, and IV antibiotics with ceftriaxone and metronidazole. -07/01/2025, switched ceftriaxone to cefepime and continue with metronidazole -GI following the patient 06/30: CT abdomen and pelvis IMPRESSION: 1. No abscess identified. No free intraperitoneal air identified. 2. Small amount of new nonspecific amount of fat stranding and fluid in the abdomen and pelvis. 3. New small right-sided pleural effusion. 4. New tiny left-sided pleural effusion. 5.There are two new moderate-sized bandlike opacities in the right lower lung and a new small bandlike opacity in the left lower lung. Differential includes atelectasis or pneumonia. Correlate clinically. Recommend follow-up to resolution. 6. Redemonstration of the mild left-sided hydronephrosis and mild left-sided hydroureter. No CT evidence for renal, ureteral or bladder calculi. 7. Slight improvement in the concentric thickening of the ramey of the bladder. Correlate clinically. 8. Redemonstration of the short segment focal thickening of the ramey of the distal descending colon and proximal sigmoid colon. Differential includes incomplete bowel wall distention, diverticulitis or mass. 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, not intractable, without status epilepticus Status: Acute Assessment and Plan: Intractable myoclonic seizures despite patient being on Versed infusion, given Ativan 4 mg IV x2, -continue Keppra and IV valproic acid, propofol infusion -neurology following the patient -myoclonic seizures post cardiac arrest is an ominous sign post, likely related to anoxic brain injury, patient does not have a history of seizure -continue to monitor and treat Plan DVT prophylaxis: Heparin subQ Stress ulcer prophylaxis: Protonix Nutrition: NPO Code Status: Full code Critical Care Time Spent: 34 minutes 07/02: Discussed with daughter and and updated with patient's condition plan of care. They are aware that patient is on the rewarming phase at this time, once he is rewarmed to normal body temperature we will start weaning his sedation gradually with the caveats that he does not have any seizure activity. They are aware that this sedation needs to wear off once discontinued, so that we can evaluate his neurological status 07/01: Discussed with patient's , daughter Ana, [facility] and updated them with patient's condition and plan of care. They aware that the patient had a cardiac arrest, cause is unknown, they are aware about the myocl onic jerks which I mentioned could be related to anoxic injury. They are aware that the patient is on target temperature management, will be cooled for 24 hours and then will have him passively rewarmed. Once he is rewarmed we will discontinue this sedation and allow him to wake up. They also aware that Neurology is going to be following him for the seizures/myoclonic jerks. Nephrology also following for his end-stage renal disease as he is on hemodialysis. Cardiology following him too. I answered all questions made myself available if needed 07/01: -have discussed with the family at length regarding target temperature management, along with that side effects which are bleeding, hypotension, shock, coagulopathy. They want to give him a complete chance, will continue. The family, especially the daughter who is the POA wants him to be a full code Due to a high probability of clinically significant, life threatening deterioration, the patient required my highest level of preparedness to intervene emergently and I personally spent this critical care time directly and personally managing the patient. This critical care time included obtaining a history; examining the patient; pulse oximetry; ordering and review of studies; arranging urgent treatment with development of a management plan; evaluation of patient's response to treatment; frequent reassessment; and discussions with other providers. It was exclusive of separately billable procedures and treating other patients and teaching time. Please see Assessment and Plan section and the rest of the note for further information on patient assessment and treatment This dictation may have been done utilizing a voice recognition system. Attempts have been made to correct errors. However, there may be uncorrected grammatical, spelling, and recognitions errors present. Subjective Date/time seen: 07/02/25 11:01 Interval history: Reason for consult: Cardiac arrest, acute respiratory failure secondary cardiac arrest, diverticulitis, end-stage renal disease on hemodialysis, transaminitis, seizures/myoclonic jerks 07/02/2025: Patient seen and examined the ICU, remains intubated on CMV mode of ventilation, peep of 8, 60% FiO2, sedated with propofol, fentanyl and Versed infusion. Seizures have abated. Patient is end-stage renal disease, oliguric 80 hemodynamically stable, off pressors, currently on rewarming phase of target temperature management. LFTs trending down, normal lactic acid 1.5, electrolytes remained stable Review of Systems Review of Systems: ROS unobtainable: Yes unobtainable due to endotracheal tube, unobtainable due to medical condition and unobtainable due to mental status Exam Narrative: General: Acutely ill patient, hence mechanical ventilation and sedated HEENT: Right pupil dilated, very sluggish, left pupil smaller and very sluggish, sclera is clear, ETT in place Neck:? Supple Respiratory:? Coarse breath sounds bilaterally, decreased at bases, no wheezing, adequate air entry Cardiac:? S1-S2 is normal, sinus bradycardia Abdomen:? Soft, nontender, nondistended, very hypoactive bowel sounds Extremities:? Left upper ext extremity fistula with positive thrill, right BKA, 1+ edema bilateral lower extremities, palpable pedal pulses on the left foot Neuro:? Patient is intubated, sedated, does not open his eyes or follow simple commands, does not withdraw to pain Skin:? No skin lesions noted Psych:? Unable to assess at this time Objective Data Vital Signs Vital Signs: Vital Signs - 24 hr 07/01/25 11:26 07/01/25 12:00 07/01/25 12:00 Temperature 96.7 F L Pulse Rate 62 68 Respiratory Rate 20 Blood Pressure 101/40 L Pulse Oximetry 100 100 Oxygen Delivery Mechanical Ventilation Mechanical Ventilation Fraction of Inspired Oxygen 60 60 07/01/25 12:00 07/01/25 12:00 07/01/25 12:00 Temperature 96.7 F L Pulse Rate 68 68 Respiratory Rate 21 H 21 H Blood Pressure 102/41 L Pulse Oximetry 100 Oxygen Delivery Fraction of Inspired Oxygen 60 07/01/25 12:00 07/01/25 12:00 07/01/25 12:40 Temperature Pulse Rate 68 68 62 Respiratory Rate 21 H 19 Blood Pressure Pulse Oximetry Oxygen Delivery Fraction of Inspired Oxygen 07/01/25 12:41 07/01/25 13:00 07/01/25 13:00 Temperature 96.9 F L 96.9 F L Pulse Rate 62 66 66 Respiratory Rate 19 19 Blood Pressure 99/40 L 121/47 L 128/49 L Pulse Oximetry 100 100 Oxygen Delivery Fraction of Inspired Oxygen 07/01/25 13:30 07/01/25 13:42 07/01/25 13:42 Temperature Pulse Rate 57 L 55 L 55 L Respiratory Rate 16 16 Blood Pressure 154/53 H Pulse Oximetry Oxygen Delivery Fraction of Inspired Oxygen 07/01/25 14:00 07/01/25 14:00 07/01/25 14:00 Temperature 97.1 F L 97.1 F L Pulse Rate 53 L 57 L 57 L Respiratory Rate 16 16 Blood Pressure 153/50 H 139/47 L Pulse Oximetry 100 100 100 Oxygen Delivery Mechanical Ventilation Fraction of Inspired Oxygen 60 07/01/25 14:00 07/01/25 14:00 07/01/25 14:00 Temperature Pulse Rate 56 L 56 L 56 L Respiratory Rate 16 16 Blood Pressure 139/47 L Pulse Oximetry Oxygen Delivery Fraction of Inspired Oxygen 07/01/25 14:00 07/01/25 14:00 07/01/25 14:15 Temperature Pulse Rate 56 L 56 L 53 L Respiratory Rate 16 16 Blood Pressure Pulse Oximetry Oxygen Delivery Fraction of Inspired Oxygen 07/01/25 14:30 07/01/25 14:30 07/01/25 15:00 Temperature 97.4 F L Pulse Rate 56 L 53 L 52 L Respiratory Rate 16 16 Blood Pressure 103/39 L 106/39 L Pulse Oximetry 100 Oxygen Delivery Fraction of Inspired Oxygen 07/01/25 15:00 07/01/25 16:00 07/01/25 16:00 Temperature 97.4 F L 97.2 F L 97.2 F L Pulse Rate 52 L 50 L Respiratory Rate 16 16 16 Blood Pressure 106/39 L 118/43 L 118/43 L Pulse Oximetry 100 100 Oxygen Delivery Fraction of Inspired Oxygen 07/01/25 16:00 07/01/25 16:00 07/01/25 16:00 Temperature Pulse Rate 50 L 50 L Respiratory Rate 16 16 Blood Pressure Pulse Oximetry Oxygen Delivery Mechanical Ventilation Fraction of Inspired Oxygen 60 07/01/25 16:00 07/01/25 16:00 07/01/25 16:28 Temperature 97.1 F L Pulse Rate 50 L 51 L Respiratory Rate 16 Blood Pressure 119/43 L Pulse Oximetry 100 Oxygen Delivery Fraction of Inspired Oxygen 60 07/01/25 16:36 07/01/25 17:00 07/01/25 17:10 Temperature 96.8 F L Pulse Rate 49 L 49 L 49 L Respiratory Rate 16 16 Blood Pressure 112/43 L Pulse Oximetry 100 100 Oxygen Delivery Mechanical Ventilation Fraction of Inspired Oxygen 60 07/01/25 17:10 07/01/25 18:00 07/01/25 18:00 Temperature 96.4 F L Pulse Rate 49 L 47 L 47 L Respiratory Rate 16 16 Blood Pressure 98/39 L Pulse Oximetry 100 Oxygen Delivery Fraction of Inspired Oxygen 07/01/25 18:00 07/01/25 18:00 07/01/25 18:00 Temperature 96.4 F L Pulse Rate 47 L 47 L 47 L Respiratory Rate 16 16 16 Blood Pressure 98/39 L Pulse Oximetry 100 Oxygen Delivery Fraction of Inspired Oxygen 07/01/25 19:00 07/01/25 20:00 07/01/25 20:00 Temperature 95.9 F L 95.4 F L Pulse Rate 45 L 44 L Respiratory Rate 16 16 Blood Pressure 101/40 L 96/38 L Pulse Oximetry 100 100 Oxygen Delivery Fraction of Inspired Oxygen 60 07/01/25 20:00 07/01/25 20:00 07/01/25 20:00 Temperature 95.1 F L Pulse Rate 43 L 44 L Respiratory Rate 15 Blood Pressure 103/42 L Pulse Oximetry 100 Oxygen Delivery Mechanical Ventilation Fraction of Inspired Oxygen 60 07/01/25 20:10 07/01/25 20:15 07/01/25 21:00 Temperature 95.2 F L Pulse Rate 44 L 44 L 43 L Respiratory Rate 16 16 Blood Pressure 104/41 L Pulse Oximetry 100 100 Oxygen Delivery Mechanical Ventilation Fraction of Inspired Oxygen 60 07/01/25 21:23 07/01/25 22:00 07/01/25 22:00 Temperature 95.1 F L Pulse Rate 43 L 43 L 44 L Respiratory Rate 16 16 Blood Pressure 101/40 L Pulse Oximetry 100 Oxygen Delivery Fraction of Inspired Oxygen 07/01/25 22:32 07/01/25 22:32 07/01/25 23:00 Temperature Pulse Rate 43 L 43 L 44 L Respiratory Rate 16 16 16 Blood Pressure Pulse Oximetry Oxygen Delivery Fraction of Inspired Oxygen 07/01/25 23:00 07/01/25 23:10 07/01/25 23:13 Temperature 94.9 F L Pulse Rate 44 L 44 L 44 L Respiratory Rate 16 16 16 Blood Pressure 101/38 L Pulse Oximetry 100 Oxygen Delivery Fraction of Inspired Oxygen 07/01/25 23:20 07/01/25 23:51 07/02/25 00:00 Temperature Pulse Rate 44 L 44 L 46 L Respiratory Rate Blood Pressure 100/41 L Pulse Oximetry 100 Oxygen Delivery Mechanical Ventilation Fraction of Inspired Oxygen 50 07/02/25 00:00 07/02/25 00:00 07/02/25 00:00 Temperature 94.9 F L Pulse Rate 47 L Respiratory Rate 16 Blood Pressure 130/45 L Pulse Oximetry 100 Oxygen Delivery Mechanical Ventilation Fraction of Inspired Oxygen 40 60 07/02/25 00:00 07/02/25 00:00 07/02/25 01:00 Temperature 95.1 F L Pulse Rate 44 L 44 L 46 L Respiratory Rate 16 16 Blood Pressure 104/42 L 109/39 L Pulse Oximetry 99 Oxygen Delivery Fraction of Inspired Oxygen 07/02/25 02:00 07/02/25 02:00 07/02/25 02:00 Temperature 95.4 F L 95.4 F L Pulse Rate 47 L 47 L 47 L Respiratory Rate 16 16 Blood Pressure 97/36 L 96/36 L Pulse Oximetry 98 98 Oxygen Delivery Fraction of Inspired Oxygen 07/02/25 02:00 07/02/25 02:00 07/02/25 02:00 Temperature Pulse Rate 49 L 49 L 49 L Respiratory Rate 16 16 Blood Pressure 154/47 H Pulse Oximetry Oxygen Delivery Fraction of Inspired Oxygen 07/02/25 02:28 07/02/25 03:00 07/02/25 04:00 Temperature 95.5 F L 96.1 F L Pulse Rate 47 L 52 L 52 L Respiratory Rate 16 16 Blood Pressure 142/45 H 147/47 H Pulse Oximetry 99 94 94 Oxygen Delivery Mechanical Ventilation Fraction of Inspired Oxygen 40 07/02/25 04:00 07/02/25 04:00 07/02/25 04:00 Temperature Pulse Rate 52 L 61 Respiratory Rate 16 Blood Pressure Pulse Oximetry Oxygen Delivery Mechanical Ventilation Fraction of Inspired Oxygen 60 07/02/25 04:00 07/02/25 04:56 07/02/25 05:00 Temperature 96.1 F L Pulse Rate 52 L 53 L Respiratory Rate 16 Blood Pressure 150/55 H Pulse Oximetry 94 100 Oxygen Delivery Mechanical Ventilation Fraction of Inspired Oxygen 40 30 07/02/25 05:57 07/02/25 06:00 07/02/25 06:00 Temperature 96.1 F L Pulse Rate 52 L 52 L 61 Respiratory Rate 16 16 18 Blood Pressure 149/48 H Pulse Oximetry 100 Oxygen Delivery Fraction of Inspired Oxygen 07/02/25 06:00 07/02/25 06:03 07/02/25 06:15 Temperature Pulse Rate 52 L 52 L 52 L Respiratory Rate 16 Blood Pressure 136/47 L Pulse Oximetry Oxygen Delivery Fraction of Inspired Oxygen 07/02/25 06:54 07/02/25 06:54 07/02/25 07:00 Temperature 96.0 F L Pulse Rate 49 L 49 L 49 L Respiratory Rate 18 18 16 Blood Pressure 115/41 L Pulse Oximetry 100 Oxygen Delivery Fraction of Inspired Oxygen 07/02/25 08:00 07/02/25 08:30 07/02/25 09:00 Temperature 96.1 F L 96.2 F L Pulse Rate 48 L 47 L 48 L Respiratory Rate 16 12 Blood Pressure 115/41 L 96/38 L Pulse Oximetry 100 100 100 Oxygen Delivery Mechanical Ventilation Fraction of Inspired Oxygen 40 07/02/25 10:00 07/02/25 10:00 07/02/25 10:54 Temperature 96.3 F L 96.3 F L 96.4 F L Pulse Rate 48 L 47 L 47 L Respiratory Rate 12 12 12 Blood Pressure 113/41 L 106/39 L 100/37 L Pulse Oximetry 100 100 100 Oxygen Delivery Fraction of Inspired Oxygen Intake/Output Intake/Output: Intake & Output 08/14/25 06/30/25 07/01/25 07/02/25 23:59 23:59 23:59 23:59 Intake Total 2650 1582.0 1198.9 446.0 Output Total 0 585 30 Balance 2650 1582.0 613.9 416.0 Meds/Results Medications: Active Medications Generic Name Dose Route Start Last Admin Trade Name Freq PRN Reason Stop Dose Admin Acetaminophen 650 mg 06/29/25 12:42 Acetaminophen 325 Mg Tablet PO Q6H PRN Mild Pain (1-3) or Fever Amlodipine Besylate 5 mg 06/30/25 09:00 06/30/25 10:04 Amlodipine Besylate 5 Mg Tablet PO 5 mg DAILY SUPA Administration Aspirin 325 mg 06/30/25 09:00 06/30/25 10:04 Aspirin 325 Mg Enteric Tablet PO 325 mg QAM SUPA Administration Dextrose 12.5 gm 06/29/25 12:50 Dextrose 50% 25 Gm/50 Ml Syringe IV PUSH PRN PRN Hypoglycemia Protocol Dicyclomine HCl 20 mg 06/29/25 12:42 Dicyclomine Hcl 10 Mg Capsule PO QID PRN Abdominal Cramping Escitalopram Oxalate 5 mg 06/30/25 09:00 06/30/25 10:06 Escitalopram Oxalate 5 Mg Tablet PO 5 mg DAILY SUPA Administration Ferrous Sulfate 324 mg 06/30/25 09:00 06/30/25 10:05 Ferrous Sulfate [address] BY MOUTH 324 mg DAILY SUPA Administration Flecainide Acetate 100 mg 06/29/25 21:00 06/30/25 21:30 Flecainide Acetate 100 Mg Tablet PO Not Given Q12H SUPA Furosemide 40 mg 07/01/25 09:00 Furosemide Inj 40 Mg/4 Ml Vial IV PUSH BID SUPA Glucagon 1 mg 06/29/25 12:50 Glucagon For Inj 1 Mg Vial IM PRN PRN Hypoglycemia Protocol Glucagon 1 mg 07/01/25 02:06 Glucagon For Inj 1 Mg Vial IM PRN PRN Hypoglycemia Protocol Glucose 15 gm 06/29/25 12:50 Glucose Oral Gel 15 Gm Of Glucse In 37.5 Gm Tube PO PRN PRN Hypoglycemia Protocol Heparin Sodium (Porcine) 5,000 units 07/01/25 14:00 07/02/25 06:04 Heparin Sodium 5,000 Units/Ml Vial SUB-Q 5,000 units Q8HR SUPA Administration Albumin Human 50 mls @ 999 mls/hr 06/29/25 11:31 Albutein IVPB 07/29/25 11:30 Q10M PRN HYPOTENSION Metronidazole 500 mg in 100 mls @ 100 mls/hr 06/29/25 18:00 07/02/25 10:47 Flagyl 500 Mg/Iso Soln 100 Ml IVPB 100 mls/hr Q8H SUPA Administration Dextrose 1,000 mls @ 100 mls/hr 06/29/25 12:50 Dextrose 5% 1,000 Ml IVPB PRN PRN Hypoglycemia Protocol Fentanyl Citrate 2,500 mcg in 250 mls @ 5 mls/hr 06/30/25 21:15 07/01/25 14:00 Fentanyl 2,500 Mcg/Ns 250 Ml IV CONT Infused .Q50H SUPA Titration Protocol 50 MCG/HR Midazolam HCl 100 mg in 100 mls @ 5 mls/hr 06/30/25 21:15 07/02/25 06:03 Versed 100 Mg/Ns 100 Ml IV CONT 5 mg/hr .Q20H SUPA 5 mls/hr Administration Protocol 5 MG/HR Levetiracetam 500 mg in 100 mls @ 400 mls/hr 07/01/25 09:00 07/02/25 09:35 Keppra Iv IVPB Infused Q12HR SUPA Infusion Cefepime HCl 1 gm/ Sodium 50 mls @ 100 mls/hr 07/01/25 14:00 07/01/25 15:14 Chloride IVPB Infused Q24H SUPA Infusion Valproate Sodium 1,000 mg/ 60 mls @ 52.5 mls/hr 07/01/25 17:00 07/02/25 10:50 Dextrose IVPB Infused Q8H SUPA Infusion Cisatracurium Besylate 200 mg/ 100 mls @ 7.407 mls/hr 07/01/25 10:55 Sodium Chloride IV CONT .[id number] SUPA Protocol 3 MCG/KG/MIN Propofol 100 mls @ 9.876 mls/hr 07/01/25 12:35 07/02/25 06:54 Diprivan IV CONT 20 mcg/kg/min .Q10H8M SUPA 9.88 mls/hr Administration Protocol 20 MCG/KG/MIN Norepinephrine Bitartrate 8 mg in 250 mls @ 0 mls/hr 07/01/25 12:35 07/02/25 06:15 Levophed 8 Mg/D5w 250 Ml IV CONT 0 mcg/min .Q0M SUPA 0 mls/hr Titration Protocol Insulin Aspart 3 - 6 units 07/01/25 06:00 07/02/25 06:04 Insulin Aspart (*Bkc) 100 Units/Ml SUB-Q Not Given Q6HR SUPA Protocol Lidocaine/Prilocaine 1 each 06/29/25 11:33 06/29/25 12:57 Lidocaine/Prilocaine Cream 2.5-2.5% Tube TOPICAL 1 each WITH DIALYSIS PRN Administration for dialysis Protocol Metoprolol Succinate 25 mg 06/30/25 09:00 06/30/25 10:06 Metoprolol Succinate Ext Rel 25 Mg Tabcr PO 25 mg QAM SUPA Administration Multi-Ingred Cream/Lotion/Oil/Oint 1 applic 07/01/25 11:00 07/02/25 09:20 Mineral Oil/White Petrolatum Ointment EACH EYE 1 applic Q12HR SUPA Administration Ondansetron HCl 4 mg 06/29/25 10:42 06/30/25 17:05 Ondansetron Inj 4 Mg/2 Ml Vial IV PUSH 4 mg Q4H PRN Administration Nausea Pantoprazole Sodium 40 mg 07/02/25 09:00 07/02/25 09:19 Pantoprazole Sodium Iv 40 Mg Vial IV PUSH 40 mg QAM SUPA Administration Perflutren Lipid Microsphere 0 ml 07/01/25 11:25 Perflutren Lipid Microspheres 1.5 Ml Vial Diluted To 10 Ml Total Volume IV PUSH 07/04/25 11:25 ONCE PRN adequate visualization Protocol Polyethylene Glycol 17 gm 06/29/25 12:42 Polyethylene Glycol 3350 17 Gm Powd.Pack PO QAM PRN Constipation Sodium Chloride 10 ml 07/01/25 14:00 07/02/25 06:04 Central Line Flush IV PUSH 10 ml Q8HR SUPA Administration Sodium Chloride 20 ml 07/01/25 09:09 Central Line Flush IV PUSH PRN PRN after blood draws Tamsulosin HCl 0.4 mg 06/30/25 09:00 06/30/25 10:06 Tamsulosin Hcl 0.4 Mg Capsule PO 0.4 mg DAILY SUPA Administration Radiology Results: ITS Impressions Abdomen/Pelvis CT 06/30/25 11:54 IMPRESSION: 1. No abscess identified. No free intraperitoneal air identified. 2. Small amount of new nonspecific amount of fat stranding and fluid in the abdomen and pelvis. 3. New small right-sided pleural effusion. 4. New tiny left-sided pleural effusion. 5.There are two new moderate-sized bandlike opacities in the right lower lung and a new small bandlike opacity in the left lower lung. Differential includes atelectasis or pneumonia. Correlate clinically. Recommend follow-up to resolution. 6. Redemonstration of the mild left-sided hydronephrosis and mild left-sided hydroureter. No CT evidence for renal, ureteral or bladder calculi. 7. Slight improvement in the concentric thickening of the ramey of the bladder. Correlate clinically. 8. Redemonstration of the short segment focal thickening of the ramey of the distal descending colon and proximal sigmoid colon. Differential includes incomplete bowel wall distention, diverticulitis or mass. Chest CTA 06/30/25 22:43 IMPRESSION: No pulmonary embolus. No thoracic aortic dissection or dilatation. Large bilateral pleural effusions, right greater than left Abdomen X-Ray 07/01/25 07:07 IMPRESSION: 1. Orogastric tube in stomach. 2. Small right pleural effusion with atelectasis and/or pneumonia in the bilateral lower lung zones. Head CT 07/01/25 08:10 IMPRESSION: 1. 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 No acute intracranial process. Abdomen Ultrasound 07/01/25 13:28 IMPRESSION: 1. Common bile duct diameter of 7 mm at the upper limits of normal for age with no evident cholelithiasis, gallbladder dilation or intrahepatic biliary ductal dilation. 2. Right pleural effusion. Chest X-Ray 07/02/25 06:41 Impression: [id number] pleural effusion with moderate pulmonary edema pattern and probable left basilar atelectasis. Support tubes, as above. Extensive left-sided subcutaneous emphysema. Labs Labs: Laboratory Results - last 24 hr 07/01/25 07/01/25 07/01/25 11:18 11:42 12:24 WBC 8.5 RBC 2.45 L Hgb 7.9 L Hct 23.3 L MCV 95.1 MCH 32.2 MCHC 33.9 RDW 14.2 Plt Count 103 L MPV 9.3 Immature Gran % (Auto) Neut % (Auto) Lymph % (Auto) [place] % (Auto) Eos % (Auto) Baso % (Auto) Lymph # (Auto) [place] # (Auto) Eos # (Auto) Baso # (Auto) Abs Immat Gran (auto) Absolute Neuts (auto) Absolute Nucleated RBC Nucleated RBC % % Immature Plt Fraction 2.2 PT 17.5 H D INR 1.4 APTT 43.4 H Puncture Site ABG pH ABG pCO2 ABG pO2 ABG PO2/FiO2 Ratio ABG HCO3 ABG O2 Saturation ABG O2 Content ABG Base Excess A-a Gradient Oxyhemoglobin Carboxyhemoglobin Methemoglobin Reduced Hemoglobin Total Hemoglobin O2 Delivery Device O2 Liters/Min Minute Volume Vent Rate Vent Mode FiO2 Tidal Volume PEEP Peak Inspir Pressure Pressure Support Sodium 135 L Potassium 3.7 Chloride 98 Carbon Dioxide 27 Anion Gap 10 BUN 43 H Creatinine 4.93 H Estim Creat Clear Calc 12 Estimated GFR 12 L Glucose 151 H POC Capillary Glucose 132 H 118 H Lactic Acid 2.1 H Calcium 8.6 Phosphorus 5.1 H Magnesium Total Bilirubin AST ALT Alkaline Phosphatase Total Creatine Kinase 169 Total Protein Albumin Triglycerides Lipase TSH Urine Color Urine Appearance Urine pH Ur Specific [place] Urine Protein Urine Glucose (UA) Urine Ketones Ur Blood (Man) Urine Nitrate Urine Bilirubin Urine Urobilinogen Leukocyte Esterase Rfl Urine RBC Urine WBC Ur Squamous Epith Cells Urine Bacteria Urine Casts Granular Casts 07/01/25 07/01/25 07/01/25 13:08 14:02 14:10 WBC RBC Hgb Hct MCV MCH MCHC RDW Plt Count MPV Immature Gran % (Auto) Neut % (Auto) Lymph % (Auto) [place] % (Auto) Eos % (Auto) Baso % (Auto) Lymph # (Auto) [place] # (Auto) Eos # (Auto) Baso # (Auto) Abs Immat Gran (auto) Absolute Neuts (auto) Absolute Nucleated RBC Nucleated RBC % % Immature Plt Fraction PT INR APTT Puncture Site ABG pH ABG pCO2 ABG pO2 ABG PO2/FiO2 Ratio ABG HCO3 ABG O2 Saturation ABG O2 Content ABG Base Excess A-a Gradient Oxyhemoglobin Carboxyhemoglobin Methemoglobin Reduced Hemoglobin Total Hemoglobin O2 Delivery Device O2 Liters/Min Minute Volume Vent Rate Vent Mode FiO2 Tidal Volume PEEP Peak Inspir Pressure Pressure Support Sodium Potassium Chloride Carbon Dioxide Anion Gap BUN Creatinine Estim Creat Clear Calc Estimated GFR Glucose POC Capillary Glucose 112 H 109 H Lactic Acid Calcium Phosphorus Magnesium Total Bilirubin AST ALT Alkaline Phosphatase Total Creatine Kinase Total Protein Albumin Triglycerides Lipase TSH Urine Color Red H Urine Appearance Cloudy H Urine pH 5.0 Ur Specific [place] 1.015 Urine Protein 2+ H Urine Glucose (UA) Negative Urine Ketones Negative Ur Blood (Man) 2+ H Urine Nitrate Positive H Urine Bilirubin 1+ H Urine Urobilinogen 0.2 Leukocyte Esterase Rfl 3+ H Urine RBC >100 H Urine WBC >100 H Ur Squamous Epith Cells Many H Urine Bacteria 4+ H Urine Casts 0-2 Granular Casts Present 07/01/25 07/01/25 07/01/25 14:12 15:03 15:15 WBC RBC Hgb Hct MCV MCH MCHC RDW Plt Count MPV Immature Gran % (Auto) Neut % (Auto) Lymph % (Auto) [place] % (Auto) Eos % (Auto) Baso % (Auto) Lymph # (Auto) [place] # (Auto) Eos # (Auto) Baso # (Auto) Abs Immat Gran (auto) Absolute Neuts (auto) Absolute Nucleated RBC Nucleated RBC % % Immature Plt Fraction PT INR APTT Puncture Site Artline ABG pH 7.521 H* ABG pCO2 26.0 L ABG pO2 93.3 ABG PO2/FiO2 Ratio 1.56 ABG HCO3 20.8 L ABG O2 Saturation 97.9 ABG O2 Content 11.0 L ABG Base Excess -1.5 A-a Gradient 310.1 Oxyhemoglobin 95.2 Carboxyhemoglobin 1.2 Methemoglobin 0.3 Reduced Hemoglobin 3.3 Total Hemoglobin 8.1 L O2 Delivery Device Ventilator O2 Liters/Min Not Reportable Minute Volume Vent Rate Vent Mode FiO2 60 Tidal Volume PEEP Peak Inspir Pressure Pressure Support Sodium Potassium Chloride Carbon Dioxide Anion Gap BUN Creatinine Estim Creat Clear Calc Estimated GFR Glucose POC Capillary Glucose 104 Lactic Acid Calcium Phosphorus Magnesium Total Bilirubin AST ALT Alkaline Phosphatase Total Creatine Kinase Total Protein Albumin Triglycerides 82 Lipase TSH Urine Color Urine Appearance Urine pH Ur Specific [place] Urine Protein Urine Glucose (UA) Urine Ketones Ur Blood (Man) Urine Nitrate Urine Bilirubin Urine Urobilinogen Leukocyte Esterase Rfl Urine RBC Urine WBC Ur Squamous Epith Cells Urine Bacteria Urine Casts Granular Casts 07/01/25 07/01/25 07/01/25 16:07 16:54 17:07 WBC RBC Hgb Hct MCV MCH MCHC RDW Plt Count MPV Immature Gran % (Auto) Neut % (Auto) Lymph % (Auto) [place] % (Auto) Eos % (Auto) Baso % (Auto) Lymph # (Auto) [place] # (Auto) Eos # (Auto) Baso # (Auto) Abs Immat Gran (auto) Absolute Neuts (auto) Absolute Nucleated RBC Nucleated RBC % % Immature Plt Fraction PT INR APTT Puncture Site ABG pH ABG pCO2 ABG pO2 ABG PO2/FiO2 Ratio ABG HCO3 ABG O2 Saturation ABG O2 Content ABG Base Excess A-a Gradient Oxyhemoglobin Carboxyhemoglobin Methemoglobin Reduced Hemoglobin Total Hemoglobin O2 Delivery Device O2 Liters/Min Minute Volume Vent Rate Vent Mode FiO2 Tidal Volume PEEP Peak Inspir Pressure Pressure Support Sodium Potassium Chloride Carbon Dioxide Anion Gap BUN Creatinine Estim Creat Clear Calc Estimated GFR Glucose POC Capillary Glucose 107 H 104 Lactic Acid Calcium Phosphorus Magnesium Total Bilirubin AST ALT Alkaline Phosphatase Total Creatine Kinase 122 Total Protein Albumin Triglycerides Lipase TSH Urine Color Urine Appearance Urine pH Ur Specific [place] Urine Protein Urine Glucose (UA) Urine Ketones Ur Blood (Man) Urine Nitrate Urine Bilirubin Urine Urobilinogen Leukocyte Esterase Rfl Urine RBC Urine WBC Ur Squamous Epith Cells Urine Bacteria Urine Casts Granular Casts 07/01/25 07/01/25 07/01/25 18:10 19:00 20:03 WBC RBC Hgb Hct MCV MCH MCHC RDW Plt Count MPV Immature Gran % (Auto) Neut % (Auto) Lymph % (Auto) [place] % (Auto) Eos % (Auto) Baso % (Auto) Lymph # (Auto) [place] # (Auto) Eos # (Auto) Baso # (Auto) Abs Immat Gran (auto) Absolute Neuts (auto) Absolute Nucleated RBC Nucleated RBC % % Immature Plt Fraction PT INR APTT Puncture Site ABG pH ABG pCO2 ABG pO2 ABG PO2/FiO2 Ratio ABG HCO3 ABG O2 Saturation ABG O2 Content ABG Base Excess A-a Gradient Oxyhemoglobin Carboxyhemoglobin Methemoglobin Reduced Hemoglobin Total Hemoglobin O2 Delivery Device O2 Liters/Min Minute Volume Vent Rate Vent Mode FiO2 Tidal Volume PEEP Peak Inspir Pressure Pressure Support Sodium Potassium Chloride Carbon Dioxide Anion Gap BUN Creatinine Estim Creat Clear Calc Estimated GFR Glucose POC Capillary Glucose 106 H 95 87 Lactic Acid Calcium Phosphorus Magnesium Total Bilirubin AST ALT Alkaline Phosphatase Total Creatine Kinase Total Protein Albumin Triglycerides Lipase TSH Urine Color Urine Appearance Urine pH Ur Specific [place] Urine Protein Urine Glucose (UA) Urine Ketones Ur Blood (Man) Urine Nitrate Urine Bilirubin Urine Urobilinogen Leukocyte Esterase Rfl Urine RBC Urine WBC Ur Squamous Epith Cells Urine Bacteria Urine Casts Granular Casts 07/01/25 07/01/25 07/01/25 21:03 22:05 23:04 WBC RBC Hgb Hct MCV MCH MCHC RDW Plt Count MPV Immature Gran % (Auto) Neut % (Auto) Lymph % (Auto) [place] % (Auto) Eos % (Auto) Baso % (Auto) Lymph # (Auto) [place] # (Auto) Eos # (Auto) Baso # (Auto) Abs Immat Gran (auto) Absolute Neuts (auto) Absolute Nucleated RBC Nucleated RBC % % Immature Plt Fraction PT INR APTT Puncture Site ABG pH ABG pCO2 ABG pO2 ABG PO2/FiO2 Ratio ABG HCO3 ABG O2 Saturation ABG O2 Content ABG Base Excess A-a Gradient Oxyhemoglobin Carboxyhemoglobin Methemoglobin Reduced Hemoglobin Total Hemoglobin O2 Delivery Device O2 Liters/Min Minute Volume Vent Rate Vent Mode FiO2 Tidal Volume PEEP Peak Inspir Pressure Pressure Support Sodium Potassium Chloride Carbon Dioxide Anion Gap BUN Creatinine Estim Creat Clear Calc Estimated GFR Glucose POC Capillary Glucose 87 91 88 Lactic Acid Calcium Phosphorus Magnesium Total Bilirubin AST ALT Alkaline Phosphatase Total Creatine Kinase Total Protein Albumin Triglycerides Lipase TSH Urine Color Urine Appearance Urine pH Ur Specific [place] Urine Protein Urine Glucose (UA) Urine Ketones Ur Blood (Man) Urine Nitrate Urine Bilirubin Urine Urobilinogen Leukocyte Esterase Rfl Urine RBC Urine WBC Ur Squamous Epith Cells Urine Bacteria Urine Casts Granular Casts 07/02/25 07/02/25 07/02/25 00:05 01:03 02:10 WBC RBC Hgb Hct MCV MCH MCHC RDW Plt Count MPV Immature Gran % (Auto) Neut % (Auto) Lymph % (Auto) [place] % (Auto) Eos % (Auto) Baso % (Auto) Lymph # (Auto) [place] # (Auto) Eos # (Auto) Baso # (Auto) Abs Immat Gran (auto) Absolute Neuts (auto) Absolute Nucleated RBC Nucleated RBC % % Immature Plt Fraction PT INR APTT Puncture Site ABG pH ABG pCO2 ABG pO2 ABG PO2/FiO2 Ratio ABG HCO3 ABG O2 Saturation ABG O2 Content ABG Base Excess A-a Gradient Oxyhemoglobin Carboxyhemoglobin Methemoglobin Reduced Hemoglobin Total Hemoglobin O2 Delivery Device O2 Liters/Min Minute Volume Vent Rate Vent Mode FiO2 Tidal Volume PEEP Peak Inspir Pressure Pressure Support Sodium Potassium Chloride Carbon Dioxide Anion Gap BUN Creatinine Estim Creat Clear Calc Estimated GFR Glucose POC Capillary Glucose 83 84 99 Lactic Acid Calcium Phosphorus Magnesium Total Bilirubin AST ALT Alkaline Phosphatase Total Creatine Kinase Total Protein Albumin Triglycerides Lipase TSH Urine Color Urine Appearance Urine pH Ur Specific [place] Urine Protein Urine Glucose (UA) Urine Ketones Ur Blood (Man) Urine Nitrate Urine Bilirubin Urine Urobilinogen Leukocyte Esterase Rfl Urine RBC Urine WBC Ur Squamous Epith Cells Urine Bacteria Urine Casts Granular Casts 07/02/25 07/02/25 07/02/25 03:06 05:00 05:03 WBC RBC Hgb Hct MCV MCH MCHC RDW Plt Count MPV Immature Gran % (Auto) Neut % (Auto) Lymph % (Auto) [place] % (Auto) Eos % (Auto) Baso % (Auto) Lymph # (Auto) [place] # (Auto) Eos # (Auto) Baso # (Auto) Abs Immat Gran (auto) Absolute Neuts (auto) Absolute Nucleated RBC Nucleated RBC % % Immature Plt Fraction PT INR APTT Puncture Site Artline ABG pH 7.465 H ABG pCO2 33.8 L ABG pO2 55.2 L ABG PO2/FiO2 Ratio 1.84 ABG HCO3 23.8 ABG O2 Saturation 90.7 L ABG O2 Content 10.7 L ABG Base Excess 0.3 A-a Gradient 119.0 Oxyhemoglobin 86.1 L* Carboxyhemoglobin 1.6 Methemoglobin 0.3 Reduced Hemoglobin 12.0 H Total Hemoglobin 8.8 L O2 Delivery Device Ventilator O2 Liters/Min Not Reportable Minute Volume Not Reportable Vent Rate 16 Vent Mode Cmv FiO2 30 Tidal Volume 400 PEEP 5 Peak Inspir Pressure Not Reportable Pressure Support Not Reportable Sodium Potassium Chloride Carbon Dioxide Anion Gap BUN Creatinine Estim Creat Clear Calc Estimated GFR Glucose POC Capillary Glucose 102 112 H Lactic Acid Calcium Phosphorus Magnesium Total Bilirubin AST ALT Alkaline Phosphatase Total Creatine Kinase Total Protein Albumin Triglycerides Lipase TSH Urine Color Urine Appearance Urine pH Ur Specific [place] Urine Protein Urine Glucose (UA) Urine Ketones Ur Blood (Man) Urine Nitrate Urine Bilirubin Urine Urobilinogen Leukocyte Esterase Rfl Urine RBC Urine WBC Ur Squamous Epith Cells Urine Bacteria Urine Casts Granular Casts 07/02/25 07/02/25 07/02/25 05:36 06:02 06:14 WBC 10.1 H RBC 2.52 L Hgb 8.1 L Hct 24.1 L MCV 95.6 MCH 32.1 MCHC 33.6 RDW 14.4 Plt Count 109 L MPV 9.5 Immature Gran % (Auto) 0.2 Neut % (Auto) 45.9 Lymph % (Auto) 47.6 H [place] % (Auto) 3.9 Eos % (Auto) 1.7 Baso % (Auto) 0.7 Lymph # (Auto) 4.83 H [place] # (Auto) 0.4 Eos # (Auto) 0.2 Baso # (Auto) 0.1 Abs Immat Gran (auto) 0.02 Absolute Neuts (auto) 4.7 Absolute Nucleated RBC 0.000 Nucleated RBC % 0.0 % Immature Plt Fraction 2.3 PT 18.5 H INR 1.5 APTT 68.5 H Puncture Site ABG pH ABG pCO2 ABG pO2 ABG PO2/FiO2 Ratio ABG HCO3 ABG O2 Saturation ABG O2 Content ABG Base Excess A-a Gradient Oxyhemoglobin Carboxyhemoglobin Methemoglobin Reduced Hemoglobin Total Hemoglobin O2 Delivery Device O2 Liters/Min Minute Volume Vent Rate Vent Mode FiO2 Tidal Volume PEEP Peak Inspir Pressure Pressure Support Sodium 134 L Potassium 3.2 L Chloride 99 Carbon Dioxide 25 Anion Gap 10 BUN 53 H D Creatinine 6.04 H Estim Creat Clear Calc 10 Estimated GFR 9 L Glucose 114 H POC Capillary Glucose 115 H 114 H Lactic Acid 1.5 Calcium 8.1 L Phosphorus 4.5 Magnesium 2.0 Total Bilirubin 0.5 AST 136 H ALT 241 H Alkaline Phosphatase 70 Total Creatine Kinase 86 Total Protein 5.1 L Albumin 2.6 L Triglycerides Lipase 21 L TSH 0.493 Urine Color Urine Appearance Urine pH Ur Specific [place] Urine Protein Urine Glucose (UA) Urine Ketones Ur Blood (Man) Urine Nitrate Urine Bilirubin Urine Urobilinogen Leukocyte Esterase Rfl Urine RBC Urine WBC Ur Squamous Epith Cells Urine Bacteria Urine Casts Granular Casts 07/02/25 07/02/25 07/02/25 07:03 07:33 08:10 WBC RBC Hgb Hct MCV MCH MCHC RDW Plt Count MPV Immature Gran % (Auto) Neut % (Auto) Lymph % (Auto) [place] % (Auto) Eos % (Auto) Baso % (Auto) Lymph # (Auto) [place] # (Auto) Eos # (Auto) Baso # (Auto) Abs Immat Gran (auto) Absolute Neuts (auto) Absolute Nucleated RBC Nucleated RBC % % Immature Plt Fraction PT INR APTT Puncture Site Artline ABG pH 7.559 H* ABG pCO2 24.4 L ABG pO2 121.3 H ABG PO2/FiO2 Ratio 2.02 ABG HCO3 21.3 L ABG O2 Saturation 98.9 ABG O2 Content 9.8 L ABG Base Excess -0.6 A-a Gradient 279.7 Oxyhemoglobin 96.3 Carboxyhemoglobin 1.6 Methemoglobin 0.3 Reduced Hemoglobin 1.8 Total Hemoglobin 7.0 L* O2 Delivery Device Ventilator O2 Liters/Min Not Reportable Minute Volume Not Reportable Vent Rate 16 Vent Mode Cmv FiO2 60 Tidal Volume 400 PEEP 5 Peak Inspir Pressure Not Reportable Pressure Support Not Reportable Sodium Potassium Chloride Carbon Dioxide Anion Gap BUN Creatinine Estim Creat Clear Calc Estimated GFR Glucose POC Capillary Glucose 111 H 108 H Lactic Acid Calcium Phosphorus Magnesium Total Bilirubin AST ALT Alkaline Phosphatase Total Creatine Kinase Total Protein Albumin Triglycerides Lipase TSH Urine Color Urine Appearance Urine pH Ur Specific [place] Urine Protein Urine Glucose (UA) Urine Ketones Ur Blood (Man) Urine Nitrate Urine Bilirubin Urine Urobilinogen Leukocyte Esterase Rfl Urine RBC Urine WBC Ur Squamous Epith Cells Urine Bacteria Urine Casts Granular Casts 07/02/25 07/02/25 09:12 10:02 WBC RBC Hgb Hct MCV MCH MCHC RDW Plt Count MPV Immature Gran % (Auto) Neut % (Auto) Lymph % (Auto) [place] % (Auto) Eos % (Auto) Baso % (Auto) Lymph # (Auto) [place] # (Auto) Eos # (Auto) Baso # (Auto) Abs Immat Gran (auto) Absolute Neuts (auto) Absolute Nucleated RBC Nucleated RBC % % Immature Plt Fraction PT INR APTT Puncture Site ABG pH ABG pCO2 ABG pO2 ABG PO2/FiO2 Ratio ABG HCO3 ABG O2 Saturation ABG O2 Content ABG Base Excess A-a Gradient Oxyhemoglobin Carboxyhemoglobin Methemoglobin Reduced Hemoglobin Total Hemoglobin O2 Delivery Device O2 Liters/Min Minute Volume Vent Rate Vent Mode FiO2 Tidal Volume PEEP Peak Inspir Pressure Pressure Support Sodium Potassium Chloride Carbon Dioxide Anion Gap BUN Creatinine Estim Creat Clear Calc Estimated GFR Glucose POC Capillary Glucose 120 H 106 H Lactic Acid Calcium Phosphorus Magnesium Total Bilirubin AST ALT Alkaline Phosphatase Total Creatine Kinase Total Protein Albumin Triglycerides Lipase TSH Urine Color Urine Appearance Urine pH Ur Specific [place] Urine Protein Urine Glucose (UA) Urine Ketones Ur Blood (Man) Urine Nitrate Urine Bilirubin Urine Urobilinogen Leukocyte Esterase Rfl Urine RBC Urine WBC Ur Squamous Epith Cells Urine Bacteria Urine Casts Granular Casts Quality VTE Prophylaxis VTE prophylaxis: pharmacologic ordered
[2025-07-02] MEDS: EPOETIN ALFA-EPBX 10,000 UNITS/ML VIAL 10000 UNITS SUB-Q (11:24)
[2025-07-02 11:30] LABS: Alveolar/Arterial O2 Gradient 153.1 mmHg; Carboxyhemoglobin 1.7 % THb (0-2.0); Fractional Inspired Oxygen 40 %; HCO3 ABG 20.9 mEq/l (22.0-26.0); Methemoglobin ABG 0.3 %THb (0-1.5); Oxygen Content ABG 9.2 %vol (16.0-22.0); Oxygen Saturation ABG 98.2 % (95.0-100.0); PCO2 ABG 26.9 mmHg (35.0-45.0); PO2 ABG 101.2 mmHg (80.0-100.0); PO2 FiO2 Ratio Arterial Blood 2.53 %; Reduced Hemoglobin 2.8 %THb (0-5.0)
[2025-07-02 11:32] LABS: Site Drawn ARTLINE
[2025-07-02 11:33] LABS: Arterial Blood Gas Tidal Volume 400 ml; Arterial Blood Gas Ventilator rate 12 /MIN
[2025-07-02 11:54] LABS: Hematocrit 22.5 % (42.0-52.0); Hemoglobin 7.6 g/dL (14.0-18.0); Immature Platelet Fraction Pct 2.6 % (0.9-11.2); Mean Corpuscular HGB Conc 33.8 g/dl (32-36); Mean Corpuscular Hemoglobin 32.2 pg (26-34); Mean Corpuscular Volume 95.3 fl (80-100); Platelet Count Result 102 k/mm3 (150-375); Red Blood Count 2.36 M/mm3 (4.6-6.20); White Blood Count 7.8 K/mm3 (4.5-10.0)
[2025-07-02 12:04] LABS: INR 1.5; Prothrombin Time 18.5 Seconds (11.1-14.7)
[2025-07-02 12:05] LABS: Partial Thromboplastin Time 57.9 Seconds (22.3-36.8)
[2025-07-02 12:12] LABS: Anion Gap 11 mmol/L (4-12); Blood Urea Nitrogen 57 mg/dL (9-20); Calcium 7.4 mg/dL (8.4-10.2); Carbon Dioxide 24 mmol/L (22-30); Chloride 99 mmol/L (98-107); Creatine Kinase 72 U/L (55-170); Estimated CRCL calculation 10 ml/min; Estimated Glomerular Filt Rate 9; Glucose 102 mg/dL (65-110); Potassium 3.3 mmol/L (3.4-5.0); Sodium 134 mmol/L (137-145)
--- NOTE | 2025-07-02 13:08 | WPDNEUROPN ---
Subjective Date/time seen: 07/02/25 13:08 Interval history: Status post cardiopulmonary arrest with status epilepticus, unclear amount of down time prior to he was found, patient received the anticonvulsant including Keppra, valproic acid, versus, and centrally infusion at present he is in the rewarming phase of TTM and subsequent plan to have an EEG. Discussed with the family members that brain functions will be evaluated meds completely off the protocol. There is no change in the neurological findings. Objective Data Vital Signs Vital Signs: Vital Signs - 24 hr 07/01/25 13:30 07/01/25 13:42 07/01/25 13:42 Temperature Pulse Rate 57 L 55 L 55 L Respiratory Rate 16 16 Blood Pressure 154/53 H Pulse Oximetry Oxygen Delivery Fraction of Inspired Oxygen 07/01/25 14:00 07/01/25 14:00 07/01/25 14:00 Temperature 36.2 C L 36.2 C L Pulse Rate 53 L 57 L 57 L Respiratory Rate 16 16 Blood Pressure 153/50 H 139/47 L Pulse Oximetry 100 100 100 Oxygen Delivery Mechanical Ventilation Fraction of Inspired Oxygen 60 07/01/25 14:00 07/01/25 14:00 07/01/25 14:00 Temperature Pulse Rate 56 L 56 L 56 L Respiratory Rate 16 16 Blood Pressure 139/47 L Pulse Oximetry Oxygen Delivery Fraction of Inspired Oxygen 07/01/25 14:00 07/01/25 14:00 07/01/25 14:15 Temperature Pulse Rate 56 L 56 L 53 L Respiratory Rate 16 16 Blood Pressure Pulse Oximetry Oxygen Delivery Fraction of Inspired Oxygen 07/01/25 14:30 07/01/25 14:30 07/01/25 15:00 Temperature 36.3 C L Pulse Rate 56 L 53 L 52 L Respiratory Rate 16 16 Blood Pressure 103/39 L 106/39 L Pulse Oximetry 100 Oxygen Delivery Fraction of Inspired Oxygen 07/01/25 15:00 07/01/25 16:00 07/01/25 16:00 Temperature 36.3 C L 36.2 C L 36.2 C L Pulse Rate 52 L 50 L Respiratory Rate 16 16 16 Blood Pressure 106/39 L 118/43 L 118/43 L Pulse Oximetry 100 100 Oxygen Delivery Fraction of Inspired Oxygen 07/01/25 16:00 07/01/25 16:00 07/01/25 16:00 Temperature Pulse Rate 50 L 50 L Respiratory Rate 16 16 Blood Pressure Pulse Oximetry Oxygen Delivery Mechanical Ventilation Fraction of Inspired Oxygen 60 07/01/25 16:00 07/01/25 16:00 07/01/25 16:28 Temperature 36.2 C L Pulse Rate 50 L 51 L Respiratory Rate 16 Blood Pressure 119/43 L Pulse Oximetry 100 Oxygen Delivery Fraction of Inspired Oxygen 60 07/01/25 16:36 07/01/25 17:00 07/01/25 17:10 Temperature 36.0 C L Pulse Rate 49 L 49 L 49 L Respiratory Rate 16 16 Blood Pressure 112/43 L Pulse Oximetry 100 100 Oxygen Delivery Mechanical Ventilation Fraction of Inspired Oxygen 60 07/01/25 17:10 07/01/25 18:00 07/01/25 18:00 Temperature 35.8 C L Pulse Rate 49 L 47 L 47 L Respiratory Rate 16 16 Blood Pressure 98/39 L Pulse Oximetry 100 Oxygen Delivery Fraction of Inspired Oxygen 07/01/25 18:00 07/01/25 18:00 07/01/25 18:00 Temperature 35.8 C L Pulse Rate 47 L 47 L 47 L Respiratory Rate 16 16 16 Blood Pressure 98/39 L Pulse Oximetry 100 Oxygen Delivery Fraction of Inspired Oxygen 07/01/25 19:00 07/01/25 20:00 07/01/25 20:00 Temperature 35.5 C L 35.2 C L Pulse Rate 45 L 44 L Respiratory Rate 16 16 Blood Pressure 101/40 L 96/38 L Pulse Oximetry 100 100 Oxygen Delivery Fraction of Inspired Oxygen 60 07/01/25 20:00 07/01/25 20:00 07/01/25 20:00 Temperature 35.1 C L Pulse Rate 43 L 44 L Respiratory Rate 15 Blood Pressure 103/42 L Pulse Oximetry 100 Oxygen Delivery Mechanical Ventilation Fraction of Inspired Oxygen 60 07/01/25 20:10 07/01/25 20:15 07/01/25 21:00 Temperature 35.1 C L Pulse Rate 44 L 44 L 43 L Respiratory Rate 16 16 Blood Pressure 104/41 L Pulse Oximetry 100 100 Oxygen Delivery Mechanical Ventilation Fraction of Inspired Oxygen 60 07/01/25 21:23 07/01/25 22:00 07/01/25 22:00 Temperature 35.1 C L Pulse Rate 43 L 43 L 44 L Respiratory Rate 16 16 Blood Pressure 101/40 L Pulse Oximetry 100 Oxygen Delivery Fraction of Inspired Oxygen 07/01/25 22:32 07/01/25 22:32 07/01/25 23:00 Temperature Pulse Rate 43 L 43 L 44 L Respiratory Rate 16 16 16 Blood Pressure Pulse Oximetry Oxygen Delivery Fraction of Inspired Oxygen 07/01/25 23:00 07/01/25 23:10 07/01/25 23:13 Temperature 34.9 C L Pulse Rate 44 L 44 L 44 L Respiratory Rate 16 16 16 Blood Pressure 101/38 L Pulse Oximetry 100 Oxygen Delivery Fraction of Inspired Oxygen 07/01/25 23:20 07/01/25 23:51 07/02/25 00:00 Temperature Pulse Rate 44 L 44 L 46 L Respiratory Rate Blood Pressure 100/41 L Pulse Oximetry 100 Oxygen Delivery Mechanical Ventilation Fraction of Inspired Oxygen 50 07/02/25 00:00 07/02/25 00:00 07/02/25 00:00 Temperature 34.9 C L Pulse Rate 47 L Respiratory Rate 16 Blood Pressure 130/45 L Pulse Oximetry 100 Oxygen Delivery Mechanical Ventilation Fraction of Inspired Oxygen 40 60 07/02/25 00:00 07/02/25 00:00 07/02/25 01:00 Temperature 35.1 C L Pulse Rate 44 L 44 L 46 L Respiratory Rate 16 16 Blood Pressure 104/42 L 109/39 L Pulse Oximetry 99 Oxygen Delivery Fraction of Inspired Oxygen 07/02/25 02:00 07/02/25 02:00 07/02/25 02:00 Temperature 35.2 C L 35.2 C L Pulse Rate 47 L 47 L 47 L Respiratory Rate 16 16 Blood Pressure 97/36 L 96/36 L Pulse Oximetry 98 98 Oxygen Delivery Fraction of Inspired Oxygen 07/02/25 02:00 07/02/25 02:00 07/02/25 02:00 Temperature Pulse Rate 49 L 49 L 49 L Respiratory Rate 16 16 Blood Pressure 154/47 H Pulse Oximetry Oxygen Delivery Fraction of Inspired Oxygen 07/02/25 02:28 07/02/25 03:00 07/02/25 04:00 Temperature 35.3 C L 35.6 C L Pulse Rate 47 L 52 L 52 L Respiratory Rate 16 16 Blood Pressure 142/45 H 147/47 H Pulse Oximetry 99 94 94 Oxygen Delivery Mechanical Ventilation Fraction of Inspired Oxygen 40 07/02/25 04:00 07/02/25 04:00 07/02/25 04:00 Temperature Pulse Rate 52 L 61 Respiratory Rate 16 Blood Pressure Pulse Oximetry Oxygen Delivery Mechanical Ventilation Fraction of Inspired Oxygen 60 07/02/25 04:00 07/02/25 04:56 07/02/25 05:00 Temperature 35.6 C L Pulse Rate 52 L 53 L Respiratory Rate 16 Blood Pressure 150/55 H Pulse Oximetry 94 100 Oxygen Delivery Mechanical Ventilation Fraction of Inspired Oxygen 40 30 07/02/25 05:57 07/02/25 06:00 07/02/25 06:00 Temperature 35.6 C L Pulse Rate 52 L 52 L 61 Respiratory Rate 16 16 18 Blood Pressure 149/48 H Pulse Oximetry 100 Oxygen Delivery Fraction of Inspired Oxygen 07/02/25 06:00 07/02/25 06:03 07/02/25 06:15 Temperature Pulse Rate 52 L 52 L 52 L Respiratory Rate 16 Blood Pressure 136/47 L Pulse Oximetry Oxygen Delivery Fraction of Inspired Oxygen 07/02/25 06:54 07/02/25 06:54 07/02/25 07:00 Temperature 35.6 C L Pulse Rate 49 L 49 L 49 L Respiratory Rate 18 18 16 Blood Pressure 115/41 L Pulse Oximetry 100 Oxygen Delivery Fraction of Inspired Oxygen 07/02/25 08:00 07/02/25 08:00 07/02/25 08:00 Temperature 35.6 C L Pulse Rate 48 L 48 L 48 L Respiratory Rate 16 16 16 Blood Pressure 115/41 L Pulse Oximetry 100 Oxygen Delivery Fraction of Inspired Oxygen 07/02/25 08:00 07/02/25 08:00 07/02/25 08:00 Temperature Pulse Rate 48 L 48 L Respiratory Rate Blood Pressure 105/49 L Pulse Oximetry 100 Oxygen Delivery Mechanical Ventilation Fraction of Inspired Oxygen 40 07/02/25 08:00 07/02/25 08:30 07/02/25 09:00 Temperature 35.7 C L Pulse Rate 47 L 48 L Respiratory Rate 12 Blood Pressure 96/38 L Pulse Oximetry 100 100 Oxygen Delivery Mechanical Ventilation Fraction of Inspired Oxygen 40 40 07/02/25 10:00 07/02/25 10:00 07/02/25 10:00 Temperature 35.7 C L 35.7 C L Pulse Rate 48 L 47 L 48 L Respiratory Rate 12 12 12 Blood Pressure 113/41 L 106/39 L Pulse Oximetry 100 100 Oxygen Delivery Fraction of Inspired Oxygen 07/02/25 10:00 07/02/25 10:00 07/02/25 10:00 Temperature Pulse Rate 48 L 48 L 48 L Respiratory Rate 12 Blood Pressure 113/41 L Pulse Oximetry Oxygen Delivery Fraction of Inspired Oxygen 07/02/25 10:54 07/02/25 11:00 07/02/25 11:40 Temperature 35.8 C L 35.8 C L Pulse Rate 47 L 47 L 47 L Respiratory Rate 12 12 Blood Pressure 100/37 L 96/36 L Pulse Oximetry 100 100 100 Oxygen Delivery Mechanical Ventilation Fraction of Inspired Oxygen 40 07/02/25 12:00 Temperature 35.8 C L Pulse Rate 49 L Respiratory Rate 12 Blood Pressure 135/48 L Pulse Oximetry 100 Oxygen Delivery Fraction of Inspired Oxygen Intake/Output Intake/Output: Intake & Output 06/29/25 06/30/25 07/01/25 07/02/25 23:59 23:59 23:59 23:59 Intake Total 2650 1582.0 1198.9 596.5 Output Total 0 585 32 Balance 2650 1582.0 613.9 564.5 Meds/Results Medications: Active Medications Generic Name Dose Route Start Last Admin Trade Name Freq PRN Reason Stop Dose Admin Acetaminophen 650 mg 06/29/25 12:42 Acetaminophen 325 Mg Tablet PO Q6H PRN Mild Pain (1-3) or Fever Amlodipine Besylate 5 mg 06/30/25 09:00 06/30/25 10:04 Amlodipine Besylate 5 Mg Tablet PO 5 mg DAILY SUPA Administration Aspirin 325 mg 06/30/25 09:00 06/30/25 10:04 Aspirin 325 Mg Enteric Tablet PO 325 mg QAM SUPA Administration Dextrose 12.5 gm 06/29/25 12:50 Dextrose 50% 25 Gm/50 Ml Syringe IV PUSH PRN PRN Hypoglycemia Protocol Dicyclomine HCl 20 mg 06/29/25 12:42 Dicyclomine Hcl 10 Mg Capsule PO QID PRN Abdominal Cramping Escitalopram Oxalate 5 mg 06/30/25 09:00 06/30/25 10:06 Escitalopram Oxalate 5 Mg Tablet PO 5 mg DAILY SUPA Administration Ferrous Sulfate 324 mg 06/30/25 09:00 06/30/25 10:05 Ferrous Sulfate [address] BY MOUTH 324 mg DAILY SUPA Administration Flecainide Acetate 100 mg 06/29/25 21:00 06/30/25 21:30 Flecainide Acetate 100 Mg Tablet PO Not Given Q12H SUPA Furosemide 40 mg 07/01/25 09:00 Furosemide Inj 40 Mg/4 Ml Vial IV PUSH BID SUPA Glucagon 1 mg 06/29/25 12:50 Glucagon For Inj 1 Mg Vial IM PRN PRN Hypoglycemia Protocol Glucagon 1 mg 07/01/25 02:06 Glucagon For Inj 1 Mg Vial IM PRN PRN Hypoglycemia Protocol Glucose 15 gm 06/29/25 12:50 Glucose Oral Gel 15 Gm Of Glucse In 37.5 Gm Tube PO PRN PRN Hypoglycemia Protocol Heparin Sodium (Porcine) 5,000 units 07/01/25 14:00 07/02/25 06:04 Heparin Sodium 5,000 Units/Ml Vial SUB-Q 5,000 units Q8HR SUPA Administration Albumin Human 50 mls @ 999 mls/hr 06/29/25 11:31 Albutein IVPB 07/29/25 11:30 Q10M PRN HYPOTENSION Metronidazole 500 mg in 100 mls @ 100 mls/hr 06/29/25 18:00 07/02/25 11:50 Flagyl 500 Mg/Iso Soln 100 Ml IVPB Infused Q8H SUPA Infusion Dextrose 1,000 mls @ 100 mls/hr 06/29/25 12:50 Dextrose 5% 1,000 Ml IVPB PRN PRN Hypoglycemia Protocol Fentanyl Citrate 2,500 mcg in 250 mls @ 5 mls/hr 06/30/25 21:15 07/01/25 14:00 Fentanyl 2,500 Mcg/Ns 250 Ml IV CONT Infused .Q50H SUPA Titration Protocol 50 MCG/HR Midazolam HCl 100 mg in 100 mls @ 5 mls/hr 06/30/25 21:15 07/02/25 10:00 Versed 100 Mg/Ns 100 Ml IV CONT 5 mg/hr .Q20H SUPA 5 mls/hr Titration Protocol 5 MG/HR Levetiracetam 500 mg in 100 mls @ 400 mls/hr 07/01/25 09:00 07/02/25 09:35 Keppra Iv IVPB Infused Q12HR SUPA Infusion Cefepime HCl 1 gm/ Sodium 50 mls @ 100 mls/hr 07/01/25 14:00 07/01/25 15:14 Chloride IVPB Infused Q24H SUPA Infusion Valproate Sodium 1,000 mg/ 60 mls @ 52.5 mls/hr 07/01/25 17:00 07/02/25 10:50 Dextrose IVPB Infused Q8H SUPA Infusion Propofol 100 mls @ 9.876 mls/hr 07/01/25 12:35 07/02/25 10:00 Diprivan IV CONT 20 mcg/kg/min .Q10H8M SUPA 9.88 mls/hr Titration Protocol 20 MCG/KG/MIN Norepinephrine Bitartrate 8 mg in 250 mls @ 0 mls/hr 07/01/25 12:35 07/02/25 10:00 Levophed 8 Mg/D5w 250 Ml IV CONT 0 mcg/min .Q0M SUPA 0 mls/hr Titration Protocol Insulin Aspart 3 - 6 units 07/01/25 06:00 07/02/25 12:53 Insulin Aspart (*Bkc) 100 Units/Ml SUB-Q Not Given Q6HR SUPA Protocol Lidocaine/Prilocaine 1 each 06/29/25 11:33 06/29/25 12:57 Lidocaine/Prilocaine Cream 2.5-2.5% Tube TOPICAL 1 each WITH DIALYSIS PRN Administration for dialysis Protocol Metoprolol Succinate 25 mg 06/30/25 09:00 06/30/25 10:06 Metoprolol Succinate Ext Rel 25 Mg Tabcr PO 25 mg QAM SUPA Administration Multi-Ingred Cream/Lotion/Oil/Oint 1 applic 07/01/25 11:00 07/02/25 09:20 Mineral Oil/White Petrolatum Ointment EACH EYE 1 applic Q12HR SUPA Administration Ondansetron HCl 4 mg 06/29/25 10:42 06/30/25 17:05 Ondansetron Inj 4 Mg/2 Ml Vial IV PUSH 4 mg Q4H PRN Administration Nausea Pantoprazole Sodium 40 mg 07/02/25 09:00 07/02/25 09:19 Pantoprazole Sodium Iv 40 Mg Vial IV PUSH 40 mg QAM SUPA Administration Perflutren Lipid Microsphere 0 ml 07/01/25 11:25 Perflutren Lipid Microspheres 1.5 Ml Vial Diluted To 10 Ml Total Volume IV PUSH 07/04/25 11:25 ONCE PRN adequate visualization Protocol Polyethylene Glycol 17 gm 06/29/25 12:42 Polyethylene Glycol 3350 17 Gm Powd.Pack PO QAM PRN Constipation Sodium Chloride 10 ml 07/01/25 14:00 07/02/25 06:04 Central Line Flush IV PUSH 10 ml Q8HR SUPA Administration Sodium Chloride 20 ml 07/01/25 09:09 Central Line Flush IV PUSH PRN PRN after blood draws Tamsulosin HCl 0.4 mg 06/30/25 09:00 06/30/25 10:06 Tamsulosin Hcl 0.4 Mg Capsule PO 0.4 mg DAILY SUPA Administration Radiology Results: ITS Impressions Abdomen/Pelvis CT 06/30/25 11:54 IMPRESSION: 1. No abscess identified. No free intraperitoneal air identified. 2. Small amount of new nonspecific amount of fat stranding and fluid in the abdomen and pelvis. 3. New small right-sided pleural effusion. 4. New tiny left-sided pleural effusion. 5.There are two new moderate-sized bandlike opacities in the right lower lung and a new small bandlike opacity in the left lower lung. Differential includes atelectasis or pneumonia. Correlate clinically. Recommend follow-up to resolution. 6. Redemonstration of the mild left-sided hydronephrosis and mild left-sided hydroureter. No CT evidence for renal, ureteral or bladder calculi. 7. Slight improvement in the concentric thickening of the ramey of the bladder. Correlate clinically. 8. Redemonstration of the short segment focal thickening of the ramey of the distal descending colon and proximal sigmoid colon. Differential includes incomplete bowel wall distention, diverticulitis or mass. Chest CTA 06/30/25 22:43 IMPRESSION: No pulmonary embolus. No thoracic aortic dissection or dilatation. Large bilateral pleural effusions, right greater than left Abdomen X-Ray 07/01/25 07:07 IMPRESSION: 1. Orogastric tube in stomach. 2. Small right pleural effusion with atelectasis and/or pneumonia in the bilateral lower lung zones. Head CT 07/01/25 08:10 IMPRESSION: 1. 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 No acute intracranial process. Abdomen Ultrasound 07/01/25 13:28 IMPRESSION: 1. Common bile duct diameter of 7 mm at the upper limits of normal for age with no evident cholelithiasis, gallbladder dilation or intrahepatic biliary ductal dilation. 2. Right pleural effusion. Chest X-Ray 07/02/25 06:41 Impression: [id number] pleural effusion with moderate pulmonary edema pattern and probable left basilar atelectasis. Support tubes, as above. Extensive left-sided subcutaneous emphysema. Labs Labs: Laboratory Results - last 24 hr 07/01/25 07/01/25 07/01/25 13:08 14:02 14:10 WBC RBC Hgb Hct MCV MCH MCHC RDW Plt Count MPV Immature Gran % (Auto) Neut % (Auto) Lymph % (Auto) [place] % (Auto) Eos % (Auto) Baso % (Auto) Lymph # (Auto) [place] # (Auto) Eos # (Auto) Baso # (Auto) Abs Immat Gran (auto) Absolute Neuts (auto) Absolute Nucleated RBC Nucleated RBC % % Immature Plt Fraction PT INR APTT Puncture Site ABG pH ABG pCO2 ABG pO2 ABG PO2/FiO2 Ratio ABG HCO3 ABG O2 Saturation ABG O2 Content ABG Base Excess A-a Gradient Oxyhemoglobin Carboxyhemoglobin Methemoglobin Reduced Hemoglobin Total Hemoglobin O2 Delivery Device O2 Liters/Min Minute Volume Vent Rate Vent Mode FiO2 Tidal Volume PEEP Peak Inspir Pressure Pressure Support Sodium Potassium Chloride Carbon Dioxide Anion Gap BUN Creatinine Estim Creat Clear Calc Estimated GFR Glucose POC Capillary Glucose 112 H 109 H Lactic Acid Calcium Phosphorus Magnesium Total Bilirubin AST ALT Alkaline Phosphatase Total Creatine Kinase Total Protein Albumin Triglycerides Lipase TSH Urine Color Red H Urine Appearance Cloudy H Urine pH 5.0 Ur Specific [place] 1.015 Urine Protein 2+ H Urine Glucose (UA) Negative Urine Ketones Negative Ur Blood (Man) 2+ H Urine Nitrate Positive H Urine Bilirubin 1+ H Urine Urobilinogen 0.2 Leukocyte Esterase Rfl 3+ H Urine RBC >100 H Urine WBC >100 H Ur Squamous Epith Cells Many H Urine Bacteria 4+ H Urine Casts 0-2 Granular Casts Present 07/01/25 07/01/25 07/01/25 14:12 15:03 15:15 WBC RBC Hgb Hct MCV MCH MCHC RDW Plt Count MPV Immature Gran % (Auto) Neut % (Auto) Lymph % (Auto) [place] % (Auto) Eos % (Auto) Baso % (Auto) Lymph # (Auto) [place] # (Auto) Eos # (Auto) Baso # (Auto) Abs Immat Gran (auto) Absolute Neuts (auto) Absolute Nucleated RBC Nucleated RBC % % Immature Plt Fraction PT INR APTT Puncture Site Artline ABG pH 7.521 H* ABG pCO2 26.0 L ABG pO2 93.3 ABG PO2/FiO2 Ratio 1.56 ABG HCO3 20.8 L ABG O2 Saturation 97.9 ABG O2 Content 11.0 L ABG Base Excess -1.5 A-a Gradient 310.1 Oxyhemoglobin 95.2 Carboxyhemoglobin 1.2 Methemoglobin 0.3 Reduced Hemoglobin 3.3 Total Hemoglobin 8.1 L O2 Delivery Device Ventilator O2 Liters/Min Not Reportable Minute Volume Vent Rate Vent Mode FiO2 60 Tidal Volume PEEP Peak Inspir Pressure Pressure Support Sodium Potassium Chloride Carbon Dioxide Anion Gap BUN Creatinine Estim Creat Clear Calc Estimated GFR Glucose POC Capillary Glucose 104 Lactic Acid Calcium Phosphorus Magnesium Total Bilirubin AST ALT Alkaline Phosphatase Total Creatine Kinase Total Protein Albumin Triglycerides 82 Lipase TSH Urine Color Urine Appearance Urine pH Ur Specific [place] Urine Protein Urine Glucose (UA) Urine Ketones Ur Blood (Man) Urine Nitrate Urine Bilirubin Urine Urobilinogen Leukocyte Esterase Rfl Urine RBC Urine WBC Ur Squamous Epith Cells Urine Bacteria Urine Casts Granular Casts 07/01/25 07/01/25 07/01/25 16:07 16:54 17:07 WBC RBC Hgb Hct MCV MCH MCHC RDW Plt Count MPV Immature Gran % (Auto) Neut % (Auto) Lymph % (Auto) [place] % (Auto) Eos % (Auto) Baso % (Auto) Lymph # (Auto) [place] # (Auto) Eos # (Auto) Baso # (Auto) Abs Immat Gran (auto) Absolute Neuts (auto) Absolute Nucleated RBC Nucleated RBC % % Immature Plt Fraction PT INR APTT Puncture Site ABG pH ABG pCO2 ABG pO2 ABG PO2/FiO2 Ratio ABG HCO3 ABG O2 Saturation ABG O2 Content ABG Base Excess A-a Gradient Oxyhemoglobin Carboxyhemoglobin Methemoglobin Reduced Hemoglobin Total Hemoglobin O2 Delivery Device O2 Liters/Min Minute Volume Vent Rate Vent Mode FiO2 Tidal Volume PEEP Peak Inspir Pressure Pressure Support Sodium Potassium Chloride Carbon Dioxide Anion Gap BUN Creatinine Estim Creat Clear Calc Estimated GFR Glucose POC Capillary Glucose 107 H 104 Lactic Acid Calcium Phosphorus Magnesium Total Bilirubin AST ALT Alkaline Phosphatase Total Creatine Kinase 122 Total Protein Albumin Triglycerides Lipase TSH Urine Color Urine Appearance Urine pH Ur Specific [place] Urine Protein Urine Glucose (UA) Urine Ketones Ur Blood (Man) Urine Nitrate Urine Bilirubin Urine Urobilinogen Leukocyte Esterase Rfl Urine RBC Urine WBC Ur Squamous Epith Cells Urine Bacteria Urine Casts Granular Casts 07/01/25 07/01/25 07/01/25 18:10 19:00 20:03 WBC RBC Hgb Hct MCV MCH MCHC RDW Plt Count MPV Immature Gran % (Auto) Neut % (Auto) Lymph % (Auto) [place] % (Auto) Eos % (Auto) Baso % (Auto) Lymph # (Auto) [place] # (Auto) Eos # (Auto) Baso # (Auto) Abs Immat Gran (auto) Absolute Neuts (auto) Absolute Nucleated RBC Nucleated RBC % % Immature Plt Fraction PT INR APTT Puncture Site ABG pH ABG pCO2 ABG pO2 ABG PO2/FiO2 Ratio ABG HCO3 ABG O2 Saturation ABG O2 Content ABG Base Excess A-a Gradient Oxyhemoglobin Carboxyhemoglobin Methemoglobin Reduced Hemoglobin Total Hemoglobin O2 Delivery Device O2 Liters/Min Minute Volume Vent Rate Vent Mode FiO2 Tidal Volume PEEP Peak Inspir Pressure Pressure Support Sodium Potassium Chloride Carbon Dioxide Anion Gap BUN Creatinine Estim Creat Clear Calc Estimated GFR Glucose POC Capillary Glucose 106 H 95 87 Lactic Acid Calcium Phosphorus Magnesium Total Bilirubin AST ALT Alkaline Phosphatase Total Creatine Kinase Total Protein Albumin Triglycerides Lipase TSH Urine Color Urine Appearance Urine pH Ur Specific [place] Urine Protein Urine Glucose (UA) Urine Ketones Ur Blood (Man) Urine Nitrate Urine Bilirubin Urine Urobilinogen Leukocyte Esterase Rfl Urine RBC Urine WBC Ur Squamous Epith Cells Urine Bacteria Urine Casts Granular Casts 07/01/25 07/01/25 07/01/25 21:03 22:05 23:04 WBC RBC Hgb Hct MCV MCH MCHC RDW Plt Count MPV Immature Gran % (Auto) Neut % (Auto) Lymph % (Auto) [place] % (Auto) Eos % (Auto) Baso % (Auto) Lymph # (Auto) [place] # (Auto) Eos # (Auto) Baso # (Auto) Abs Immat Gran (auto) Absolute Neuts (auto) Absolute Nucleated RBC Nucleated RBC % % Immature Plt Fraction PT INR APTT Puncture Site ABG pH ABG pCO2 ABG pO2 ABG PO2/FiO2 Ratio ABG HCO3 ABG O2 Saturation ABG O2 Content ABG Base Excess A-a Gradient Oxyhemoglobin Carboxyhemoglobin Methemoglobin Reduced Hemoglobin Total Hemoglobin O2 Delivery Device O2 Liters/Min Minute Volume Vent Rate Vent Mode FiO2 Tidal Volume PEEP Peak Inspir Pressure Pressure Support Sodium Potassium Chloride Carbon Dioxide Anion Gap BUN Creatinine Estim Creat Clear Calc Estimated GFR Glucose POC Capillary Glucose 87 91 88 Lactic Acid Calcium Phosphorus Magnesium Total Bilirubin AST ALT Alkaline Phosphatase Total Creatine Kinase Total Protein Albumin Triglycerides Lipase TSH Urine Color Urine Appearance Urine pH Ur Specific [place] Urine Protein Urine Glucose (UA) Urine Ketones Ur Blood (Man) Urine Nitrate Urine Bilirubin Urine Urobilinogen Leukocyte Esterase Rfl Urine RBC Urine WBC Ur Squamous Epith Cells Urine Bacteria Urine Casts Granular Casts 07/02/25 07/02/25 07/02/25 00:05 01:03 02:10 WBC RBC Hgb Hct MCV MCH MCHC RDW Plt Count MPV Immature Gran % (Auto) Neut % (Auto) Lymph % (Auto) [place] % (Auto) Eos % (Auto) Baso % (Auto) Lymph # (Auto) [place] # (Auto) Eos # (Auto) Baso # (Auto) Abs Immat Gran (auto) Absolute Neuts (auto) Absolute Nucleated RBC Nucleated RBC % % Immature Plt Fraction PT INR APTT Puncture Site ABG pH ABG pCO2 ABG pO2 ABG PO2/FiO2 Ratio ABG HCO3 ABG O2 Saturation ABG O2 Content ABG Base Excess A-a Gradient Oxyhemoglobin Carboxyhemoglobin Methemoglobin Reduced Hemoglobin Total Hemoglobin O2 Delivery Device O2 Liters/Min Minute Volume Vent Rate Vent Mode FiO2 Tidal Volume PEEP Peak Inspir Pressure Pressure Support Sodium Potassium Chloride Carbon Dioxide Anion Gap BUN Creatinine Estim Creat Clear Calc Estimated GFR Glucose POC Capillary Glucose 83 84 99 Lactic Acid Calcium Phosphorus Magnesium Total Bilirubin AST ALT Alkaline Phosphatase Total Creatine Kinase Total Protein Albumin Triglycerides Lipase TSH Urine Color Urine Appearance Urine pH Ur Specific [place] Urine Protein Urine Glucose (UA) Urine Ketones Ur Blood (Man) Urine Nitrate Urine Bilirubin Urine Urobilinogen Leukocyte Esterase Rfl Urine RBC Urine WBC Ur Squamous Epith Cells Urine Bacteria Urine Casts Granular Casts 07/02/25 07/02/25 07/02/25 03:06 05:00 05:03 WBC RBC Hgb Hct MCV MCH MCHC RDW Plt Count MPV Immature Gran % (Auto) Neut % (Auto) Lymph % (Auto) [place] % (Auto) Eos % (Auto) Baso % (Auto) Lymph # (Auto) [place] # (Auto) Eos # (Auto) Baso # (Auto) Abs Immat Gran (auto) Absolute Neuts (auto) Absolute Nucleated RBC Nucleated RBC % % Immature Plt Fraction PT INR APTT Puncture Site Artline ABG pH 7.465 H ABG pCO2 33.8 L ABG pO2 55.2 L ABG PO2/FiO2 Ratio 1.84 ABG HCO3 23.8 ABG O2 Saturation 90.7 L ABG O2 Content 10.7 L ABG Base Excess 0.3 A-a Gradient 119.0 Oxyhemoglobin 86.1 L* Carboxyhemoglobin 1.6 Methemoglobin 0.3 Reduced Hemoglobin 12.0 H Total Hemoglobin 8.8 L O2 Delivery Device Ventilator O2 Liters/Min Not Reportable Minute Volume Not Reportable Vent Rate 16 Vent Mode Cmv FiO2 30 Tidal Volume 400 PEEP 5 Peak Inspir Pressure Not Reportable Pressure Support Not Reportable Sodium Potassium Chloride Carbon Dioxide Anion Gap BUN Creatinine Estim Creat Clear Calc Estimated GFR Glucose POC Capillary Glucose 102 112 H Lactic Acid Calcium Phosphorus Magnesium Total Bilirubin AST ALT Alkaline Phosphatase Total Creatine Kinase Total Protein Albumin Triglycerides Lipase TSH Urine Color Urine Appearance Urine pH Ur Specific [place] Urine Protein Urine Glucose (UA) Urine Ketones Ur Blood (Man) Urine Nitrate Urine Bilirubin Urine Urobilinogen Leukocyte Esterase Rfl Urine RBC Urine WBC Ur Squamous Epith Cells Urine Bacteria Urine Casts Granular Casts 07/02/25 07/02/25 07/02/25 05:36 06:02 06:14 WBC 10.1 H RBC 2.52 L Hgb 8.1 L Hct 24.1 L MCV 95.6 MCH 32.1 MCHC 33.6 RDW 14.4 Plt Count 109 L MPV 9.5 Immature Gran % (Auto) 0.2 Neut % (Auto) 45.9 Lymph % (Auto) 47.6 H [place] % (Auto) 3.9 Eos % (Auto) 1.7 Baso % (Auto) 0.7 Lymph # (Auto) 4.83 H [place] # (Auto) 0.4 Eos # (Auto) 0.2 Baso # (Auto) 0.1 Abs Immat Gran (auto) 0.02 Absolute Neuts (auto) 4.7 Absolute Nucleated RBC 0.000 Nucleated RBC % 0.0 % Immature Plt Fraction 2.3 PT 18.5 H INR 1.5 APTT 68.5 H Puncture Site ABG pH ABG pCO2 ABG pO2 ABG PO2/FiO2 Ratio ABG HCO3 ABG O2 Saturation ABG O2 Content ABG Base Excess A-a Gradient Oxyhemoglobin Carboxyhemoglobin Methemoglobin Reduced Hemoglobin Total Hemoglobin O2 Delivery Device O2 Liters/Min Minute Volume Vent Rate Vent Mode FiO2 Tidal Volume PEEP Peak Inspir Pressure Pressure Support Sodium 134 L Potassium 3.2 L Chloride 99 Carbon Dioxide 25 Anion Gap 10 BUN 53 H D Creatinine 6.04 H Estim Creat Clear Calc 10 Estimated GFR 9 L Glucose 114 H POC Capillary Glucose 115 H 114 H Lactic Acid 1.5 Calcium 8.1 L Phosphorus 4.5 Magnesium 2.0 Total Bilirubin 0.5 AST 136 H ALT 241 H Alkaline Phosphatase 70 Total Creatine Kinase 86 Total Protein 5.1 L Albumin 2.6 L Triglycerides Lipase 21 L TSH 0.493 Urine Color Urine Appearance Urine pH Ur Specific [place] Urine Protein Urine Glucose (UA) Urine Ketones Ur Blood (Man) Urine Nitrate Urine Bilirubin Urine Urobilinogen Leukocyte Esterase Rfl Urine RBC Urine WBC Ur Squamous Epith Cells Urine Bacteria Urine Casts Granular Casts 07/02/25 07/02/25 07/02/25 07:03 07:33 08:10 WBC RBC Hgb Hct MCV MCH MCHC RDW Plt Count MPV Immature Gran % (Auto) Neut % (Auto) Lymph % (Auto) [place] % (Auto) Eos % (Auto) Baso % (Auto) Lymph # (Auto) [place] # (Auto) Eos # (Auto) Baso # (Auto) Abs Immat Gran (auto) Absolute Neuts (auto) Absolute Nucleated RBC Nucleated RBC % % Immature Plt Fraction PT INR APTT Puncture Site Artline ABG pH 7.559 H* ABG pCO2 24.4 L ABG pO2 121.3 H ABG PO2/FiO2 Ratio 2.02 ABG HCO3 21.3 L ABG O2 Saturation 98.9 ABG O2 Content 9.8 L ABG Base Excess -0.6 A-a Gradient 279.7 Oxyhemoglobin 96.3 Carboxyhemoglobin 1.6 Methemoglobin 0.3 Reduced Hemoglobin 1.8 Total Hemoglobin 7.0 L* O2 Delivery Device Ventilator O2 Liters/Min Not Reportable Minute Volume Not Reportable Vent Rate 16 Vent Mode Cmv FiO2 60 Tidal Volume 400 PEEP 5 Peak Inspir Pressure Not Reportable Pressure Support Not Reportable Sodium Potassium Chloride Carbon Dioxide Anion Gap BUN Creatinine Estim Creat Clear Calc Estimated GFR Glucose POC Capillary Glucose 111 H 108 H Lactic Acid Calcium Phosphorus Magnesium Total Bilirubin AST ALT Alkaline Phosphatase Total Creatine Kinase Total Protein Albumin Triglycerides Lipase TSH Urine Color Urine Appearance Urine pH Ur Specific [place] Urine Protein Urine Glucose (UA) Urine Ketones Ur Blood (Man) Urine Nitrate Urine Bilirubin Urine Urobilinogen Leukocyte Esterase Rfl Urine RBC Urine WBC Ur Squamous Epith Cells Urine Bacteria Urine Casts Granular Casts 07/02/25 07/02/25 07/02/25 09:12 10:02 11:02 WBC RBC Hgb Hct MCV MCH MCHC RDW Plt Count MPV Immature Gran % (Auto) Neut % (Auto) Lymph % (Auto) [place] % (Auto) Eos % (Auto) Baso % (Auto) Lymph # (Auto) [place] # (Auto) Eos # (Auto) Baso # (Auto) Abs Immat Gran (auto) Absolute Neuts (auto) Absolute Nucleated RBC Nucleated RBC % % Immature Plt Fraction PT INR APTT Puncture Site ABG pH ABG pCO2 ABG pO2 ABG PO2/FiO2 Ratio ABG HCO3 ABG O2 Saturation ABG O2 Content ABG Base Excess A-a Gradient Oxyhemoglobin Carboxyhemoglobin Methemoglobin Reduced Hemoglobin Total Hemoglobin O2 Delivery Device O2 Liters/Min Minute Volume Vent Rate Vent Mode FiO2 Tidal Volume PEEP Peak Inspir Pressure Pressure Support Sodium Potassium Chloride Carbon Dioxide Anion Gap BUN Creatinine Estim Creat Clear Calc Estimated GFR Glucose POC Capillary Glucose 120 H 106 H 108 H Lactic Acid Calcium Phosphorus Magnesium Total Bilirubin AST ALT Alkaline Phosphatase Total Creatine Kinase Total Protein Albumin Triglycerides Lipase TSH Urine Color Urine Appearance Urine pH Ur Specific [place] Urine Protein Urine Glucose (UA) Urine Ketones Ur Blood (Man) Urine Nitrate Urine Bilirubin Urine Urobilinogen Leukocyte Esterase Rfl Urine RBC Urine WBC Ur Squamous Epith Cells Urine Bacteria Urine Casts Granular Casts 07/02/25 07/02/25 07/02/25 11:24 11:46 12:10 WBC 7.8 RBC 2.36 L Hgb 7.6 L Hct 22.5 L MCV 95.3 MCH 32.2 MCHC 33.8 RDW 14.5 Plt Count 102 L MPV 9.8 Immature Gran % (Auto) Neut % (Auto) Lymph % (Auto) [place] % (Auto) Eos % (Auto) Baso % (Auto) Lymph # (Auto) [place] # (Auto) Eos # (Auto) Baso # (Auto) Abs Immat Gran (auto) Absolute Neuts (auto) Absolute Nucleated RBC Nucleated RBC % % Immature Plt Fraction 2.6 PT 18.5 H INR 1.5 APTT 57.9 H Puncture Site Artline ABG pH 7.508 H* ABG pCO2 26.9 L ABG pO2 101.2 H ABG PO2/FiO2 Ratio 2.53 ABG HCO3 20.9 L ABG O2 Saturation 98.2 ABG O2 Content 9.2 L ABG Base Excess -1.9 A-a Gradient 153.1 Oxyhemoglobin 95.2 Carboxyhemoglobin 1.7 Methemoglobin 0.3 Reduced Hemoglobin 2.8 Total Hemoglobin 6.7 L* O2 Delivery Device Ventilator O2 Liters/Min Not Reportable Minute Volume Not Reportable Vent Rate 12 Vent Mode Cmv FiO2 40 Tidal Volume 400 PEEP 8 Peak Inspir Pressure Not Reportable Pressure Support Not Reportable Sodium 134 L Potassium 3.3 L Chloride 99 Carbon Dioxide 24 Anion Gap 11 BUN 57 H Creatinine 6.03 H Estim Creat Clear Calc 10 Estimated GFR 9 L Glucose 102 POC Capillary Glucose 103 Lactic Acid Calcium 7.4 L Phosphorus 4.7 H Magnesium Total Bilirubin AST ALT Alkaline Phosphatase Total Creatine Kinase 72 Total Protein Albumin Triglycerides Lipase TSH Urine Color Urine Appearance Urine pH Ur Specific [place] Urine Protein Urine Glucose (UA) Urine Ketones Ur Blood (Man) Urine Nitrate Urine Bilirubin Urine Urobilinogen Leukocyte Esterase Rfl Urine RBC Urine WBC Ur Squamous Epith Cells Urine Bacteria Urine Casts Granular Casts
[2025-07-02] MEDS: CEFEPIME 1 GM in SODIUM CHLORIDE 0.9% IV 50 ML 100 ML IVPB (14:37)
--- NOTE | 2025-07-02 15:26 | ECG_ITS ---
Test Date: 2025-07-02 15:31:14 Measurements Intervals [place] Rate: 52 P: 46 MN: 164 QRS: -11 QRSD: 109 T: 20 QT: 521 QTc: 486 Interpretive Statements SINUS BRADYCARDIA POSSIBLE LEFT ATRIAL ENLARGEMENT POOR R WAVE PROGRESSION BORDERLINE ECG Compared to ECG 07/02/2025 07:08:43 NO SIGNIFICANT CHANGE Electronically Signed On 07-02-2025 20:28:16 CDT by Nilson Jerez D.O.
--- NOTE | 2025-07-02 16:41 | PM.IMPN ---
Progress Note: A&P Assessment and Plan (1) Cardiac arrest: Code(s): I46.9 - Cardiac arrest, cause unspecified Status: Acute Assessment and Plan: 06/29: 8:26 p.m. to 8:44 p.m. cardiac arrest with ACLS protocol and return of spontaneous circulation -etiology unknown, could be aspiration, arrhythmia, hypoxic -prior to that patient was last seen well at shift change which is approximately 7:00 p.m. -unknown amount of down time prior to the time he was found unresponsive -started patient on TTM, will maintain body temperature at 36?C -follow TTM protocol -patient currently on the rewarming phase of TTM, once patient is at normal body temperature was start weaning sedation off to allow patient to wake up. 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 No thoracic aortic dissection or dilatation. Large bilateral pleural effusions right greater than left (2) Acute respiratory failure with hypoxia: Code(s): J96.01 - Acute respiratory failure with hypoxia Status: Acute Assessment and Plan: Respiratory failure likely related to cardiac arrest -large bilateral pleural effusions -patient will require thoracentesis at some point once he is more stable -currently on CMV mode of ventilation peep of 5, 60% FiO2 with adequate O2 sats. Wean FiO2 to maintain O2 sats > 92% -chest x-ray and ABGs reviewed, ventilator adjusted -sedated with propofol, fentanyl and Versed infusion, continue until rewarming process as completed. (3) ESRD on hemodialysis: Code(s): N18.6 - End stage renal disease; Z99.2 - Dependence on renal dialysis Status: Acute Assessment and Plan: Patient has a history of end-stage renal disease on hemodialysis which he gets at home -nephrology following -electrolytes and volume status looks okay this morning, continues to be on the rewarming phase, discussed with designer writer, who feels we can delay dialysis until 07/03/2025 (4) Diverticulitis: Code(s): K57.92 - Diverticulitis of intestine, part unspecified, without perforation or abscess without bleeding Status: Acute Assessment and Plan: 06/28: Patient presented the ED with abdominal pain, nausea vomiting, CT scan of the abdomen pelvis showed diverticulitis and discharged home on antibiotics. Pain worsened and he could not keep the antibiotics further medications down because of nausea and vomiting. 06/29: Patient presented back to the ED with similar complaints and was admitted to the medical floor with clear liquid diet, and IV antibiotics with ceftriaxone and metronidazole. -07/01/2025, switched ceftriaxone to cefepime and continue with metronidazole -GI following the patient 06/30: CT abdomen and pelvis IMPRESSION: 1. No abscess identified. No free intraperitoneal air identified. 2. Small amount of new nonspecific amount of fat stranding and fluid in the abdomen and pelvis. 3. New small right-sided pleural effusion. 4. New tiny left-sided pleural effusion. 5.There are two new moderate-sized bandlike opacities in the right lower lung and a new small bandlike opacity in the left lower lung. Differential includes atelectasis or pneumonia. Correlate clinically. Recommend follow-up to resolution. 6. Redemonstration of the mild left-sided hydronephrosis and mild left-sided hydroureter. No CT evidence for renal, ureteral or bladder calculi. 7. Slight improvement in the concentric thickening of the ramey of the bladder. Correlate clinically. 8. Redemonstration of the short segment focal thickening of the ramey of the distal descending colon and proximal sigmoid colon. Differential includes incomplete bowel wall distention, diverticulitis or mass. 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 Still intubated. Review of Systems Review of Systems: All systems reviewed & are unremarkable except as noted in HPI and below ROS unobtainable: Yes unobtainable due to endotracheal tube, unobtainable due to medical condition and unobtainable due to mental status Exam Narrative: General: Acutely ill patient, hence mechanical ventilation and sedated HEENT: Right pupil dilated, very sluggish, left pupil smaller and very sluggish, sclera is clear, ETT in place Neck:? Supple Respiratory:? Coarse breath sounds bilaterally, decreased at bases, no wheezing, adequate air entry Cardiac:? S1-S2 is normal, sinus bradycardia Abdomen:? Soft, nontender, nondistended, very hypoactive bowel sounds Extremities:? Left upper ext extremity fistula with positive thrill, right BKA, 1+ edema bilateral lower extremities, palpable pedal pulses on the left foot Neuro:? Patient is intubated, sedated, does not open his eyes or follow simple commands, does not withdraw to pain Skin:? No skin lesions noted Psych:? Unable to assess at this time Const: General: comfortable and no acute distress Other: , male, elderly appearance, nontoxic HENMT: Face/Nose/Sinus: Normal nares present Mouth: Yes moist mucous membranes Eyes: General: appearance normal, both eyes and all related structures Sclera: sclerae normal Pupils: Equal, round and reactive pupils present EOM: EOMs intact bilaterally Resp: Effort & Inspection: normal respiratory effort Auscultation: clear to auscultation bilaterally Cardio: Rate: regular rate Rhythm: regular rhythm Other: S1-S2 present without murmur, rub, ectopy GI: Other: Abdomen has diffuse tenderness, worse in the lower quadrants (left greater than right), normoactive bowel sounds in all quadrants, and nondistended. Skin: General skin exam: normal color and no rashes or lesions noted Wounds: no wounds Neuro: Cranial nerves: Yes Equal, round and reactive pupils present Speech: normal speech Motor exam (neuro): 5/5 motor strength present throughout Sensory Exam: normal sensation Other: A&O x4 Extrem: General: normal to inspection Psych: Mental Status: mental status grossly normal Affect: normal affect Other: Fair insight and judgment, pleasant Objective Data Vital Signs Vital Signs: Vital Signs - 24 hr 07/01/25 17:00 07/01/25 17:10 07/01/25 17:10 Temperature 96.8 F L Pulse Rate 49 L 49 L 49 L Respiratory Rate 16 16 16 Blood Pressure 112/43 L Pulse Oximetry 100 Oxygen Delivery Fraction of Inspired Oxygen 07/01/25 18:00 07/01/25 18:00 07/01/25 18:00 Temperature 96.4 F L 96.4 F L Pulse Rate 47 L 47 L 47 L Respiratory Rate 16 16 Blood Pressure 98/39 L 98/39 L Pulse Oximetry 100 100 Oxygen Delivery Fraction of Inspired Oxygen 07/01/25 18:00 07/01/25 18:00 07/01/25 19:00 Temperature 95.9 F L Pulse Rate 47 L 47 L 45 L Respiratory Rate 16 16 16 Blood Pressure 101/40 L Pulse Oximetry 100 Oxygen Delivery Fraction of Inspired Oxygen 07/01/25 20:00 07/01/25 20:00 07/01/25 20:00 Temperature 95.4 F L Pulse Rate 44 L Respiratory Rate 16 Blood Pressure 96/38 L Pulse Oximetry 100 Oxygen Delivery Mechanical Ventilation Fraction of Inspired Oxygen 60 60 07/01/25 20:00 07/01/25 20:00 07/01/25 20:10 Temperature 95.1 F L Pulse Rate 43 L 44 L 44 L Respiratory Rate 15 Blood Pressure 103/42 L Pulse Oximetry 100 100 Oxygen Delivery Mechanical Ventilation Fraction of Inspired Oxygen 60 07/01/25 20:15 07/01/25 21:00 07/01/25 21:23 Temperature 95.2 F L Pulse Rate 44 L 43 L 43 L Respiratory Rate 16 16 16 Blood Pressure 104/41 L Pulse Oximetry 100 Oxygen Delivery Fraction of Inspired Oxygen 07/01/25 22:00 07/01/25 22:00 07/01/25 22:32 Temperature 95.1 F L Pulse Rate 43 L 44 L 43 L Respiratory Rate 16 16 Blood Pressure 101/40 L Pulse Oximetry 100 Oxygen Delivery Fraction of Inspired Oxygen 07/01/25 22:32 07/01/25 23:00 07/01/25 23:00 Temperature 94.9 F L Pulse Rate 43 L 44 L 44 L Respiratory Rate 16 16 16 Blood Pressure 101/38 L Pulse Oximetry 100 Oxygen Delivery Fraction of Inspired Oxygen 07/01/25 23:10 07/01/25 23:13 07/01/25 23:20 Temperature Pulse Rate 44 L 44 L 44 L Respiratory Rate 16 16 Blood Pressure Pulse Oximetry 100 Oxygen Delivery Mechanical Ventilation Fraction of Inspired Oxygen 50 07/01/25 23:51 07/02/25 00:00 07/02/25 00:00 Temperature Pulse Rate 44 L 46 L Respiratory Rate Blood Pressure 100/41 L Pulse Oximetry Oxygen Delivery Fraction of Inspired Oxygen 40 07/02/25 00:00 07/02/25 00:00 07/02/25 00:00 Temperature 94.9 F L Pulse Rate 47 L 44 L Respiratory Rate 16 16 Blood Pressure 130/45 L Pulse Oximetry 100 Oxygen Delivery Mechanical Ventilation Fraction of Inspired Oxygen 60 07/02/25 00:00 07/02/25 01:00 07/02/25 02:00 Temperature 95.1 F L 95.4 F L Pulse Rate 44 L 46 L 47 L Respiratory Rate 16 16 Blood Pressure 104/42 L 109/39 L 97/36 L Pulse Oximetry 99 98 Oxygen Delivery Fraction of Inspired Oxygen 07/02/25 02:00 07/02/25 02:00 07/02/25 02:00 Temperature 95.4 F L Pulse Rate 47 L 47 L 49 L Respiratory Rate 16 16 Blood Pressure 96/36 L Pulse Oximetry 98 Oxygen Delivery Fraction of Inspired Oxygen 07/02/25 02:00 07/02/25 02:00 07/02/25 02:28 Temperature Pulse Rate 49 L 49 L 47 L Respiratory Rate 16 Blood Pressure 154/47 H Pulse Oximetry 99 Oxygen Delivery Mechanical Ventilation Fraction of Inspired Oxygen 40 07/02/25 03:00 07/02/25 04:00 07/02/25 04:00 Temperature 95.5 F L 96.1 F L Pulse Rate 52 L 52 L 52 L Respiratory Rate 16 16 Blood Pressure 142/45 H 147/47 H Pulse Oximetry 94 94 Oxygen Delivery Fraction of Inspired Oxygen 07/02/25 04:00 07/02/25 04:00 07/02/25 04:00 Temperature Pulse Rate 61 Respiratory Rate 16 Blood Pressure Pulse Oximetry Oxygen Delivery Mechanical Ventilation Fraction of Inspired Oxygen 60 40 07/02/25 04:56 07/02/25 05:00 07/02/25 05:57 Temperature 96.1 F L Pulse Rate 52 L 53 L 52 L Respiratory Rate 16 16 Blood Pressure 150/55 H Pulse Oximetry 94 100 Oxygen Delivery Mechanical Ventilation Fraction of Inspired Oxygen 30 07/02/25 06:00 07/02/25 06:00 07/02/25 06:00 Temperature 96.1 F L Pulse Rate 52 L 61 52 L Respiratory Rate 16 18 Blood Pressure 149/48 H Pulse Oximetry 100 Oxygen Delivery Fraction of Inspired Oxygen 07/02/25 06:03 07/02/25 06:15 07/02/25 06:54 Temperature Pulse Rate 52 L 52 L 49 L Respiratory Rate 16 18 Blood Pressure 136/47 L Pulse Oximetry Oxygen Delivery Fraction of Inspired Oxygen 07/02/25 06:54 07/02/25 07:00 07/02/25 08:00 Temperature 96.0 F L 96.1 F L Pulse Rate 49 L 49 L 48 L Respiratory Rate 18 16 16 Blood Pressure 115/41 L 115/41 L Pulse Oximetry 100 100 Oxygen Delivery Fraction of Inspired Oxygen 07/02/25 08:00 07/02/25 08:00 07/02/25 08:00 Temperature Pulse Rate 48 L 48 L 48 L Respiratory Rate 16 16 Blood Pressure 105/49 L Pulse Oximetry Oxygen Delivery Fraction of Inspired Oxygen 07/02/25 08:00 07/02/25 08:00 07/02/25 08:00 Temperature Pulse Rate 48 L Respiratory Rate Blood Pressure Pulse Oximetry 100 Oxygen Delivery Mechanical Ventilation Fraction of Inspired Oxygen 40 40 07/02/25 08:30 07/02/25 09:00 07/02/25 10:00 Temperature 96.2 F L 96.3 F L Pulse Rate 47 L 48 L 48 L Respiratory Rate 12 12 Blood Pressure 96/38 L 113/41 L Pulse Oximetry 100 100 100 Oxygen Delivery Mechanical Ventilation Fraction of Inspired Oxygen 40 07/02/25 10:00 07/02/25 10:00 07/02/25 10:00 Temperature 96.3 F L Pulse Rate 47 L 48 L 48 L Respiratory Rate 12 12 12 Blood Pressure 106/39 L Pulse Oximetry 100 Oxygen Delivery Fraction of Inspired Oxygen 07/02/25 10:00 07/02/25 10:00 07/02/25 10:54 Temperature 96.4 F L Pulse Rate 48 L 48 L 47 L Respiratory Rate 12 Blood Pressure 113/41 L 100/37 L Pulse Oximetry 100 Oxygen Delivery Fraction of Inspired Oxygen 07/02/25 11:00 07/02/25 11:40 07/02/25 12:00 Temperature 96.5 F L 96.5 F L Pulse Rate 47 L 47 L 49 L Respiratory Rate 12 12 Blood Pressure 96/36 L 135/48 L Pulse Oximetry 100 100 100 Oxygen Delivery Mechanical Ventilation Fraction of Inspired Oxygen 40 07/02/25 12:00 07/02/25 12:00 07/02/25 12:00 Temperature Pulse Rate 49 L 48 L 49 L Respiratory Rate 12 12 Blood Pressure 96/40 L Pulse Oximetry Oxygen Delivery Fraction of Inspired Oxygen 07/02/25 12:00 07/02/25 12:00 07/02/25 12:00 Temperature Pulse Rate 48 L Respiratory Rate Blood Pressure Pulse Oximetry 100 Oxygen Delivery Mechanical Ventilation Fraction of Inspired Oxygen 40 40 07/02/25 12:15 07/02/25 13:00 07/02/25 14:00 Temperature 96.7 F L 97.2 F L Pulse Rate 49 L 50 L 51 L Respiratory Rate 12 12 Blood Pressure 118/46 L 120/45 L 118/44 L Pulse Oximetry 100 100 Oxygen Delivery Fraction of Inspired Oxygen 07/02/25 14:00 07/02/25 14:00 07/02/25 14:00 Temperature Pulse Rate 51 L 51 L 51 L Respiratory Rate 12 12 Blood Pressure Pulse Oximetry Oxygen Delivery Fraction of Inspired Oxygen 07/02/25 14:00 07/02/25 14:34 07/02/25 15:00 Temperature 97.3 F L Pulse Rate 51 L 51 L 52 L Respiratory Rate 12 Blood Pressure 118/44 L 122/46 L Pulse Oximetry 100 100 Oxygen Delivery Mechanical Ventilation Fraction of Inspired Oxygen 35 07/02/25 16:00 Temperature 97.6 F Pulse Rate 54 L Respiratory Rate 12 Blood Pressure 124/50 L Pulse Oximetry 100 Oxygen Delivery Fraction of Inspired Oxygen Intake/Output Intake/Output: Intake & Output 06/29/25 06/30/25 07/01/25 07/02/25 23:59 23:59 23:59 23:59 Intake Total 2650 1582.0 1198.9 709.9 Output Total 0 585 32 Balance 2650 1582.0 613.9 677.9 Meds/Results Medications: Active Medications Generic Name Dose Route Start Last Admin Trade Name Freq PRN Reason Stop Dose Admin Acetaminophen 650 mg 06/29/25 12:42 Acetaminophen 325 Mg Tablet PO Q6H PRN Mild Pain (1-3) or Fever Amlodipine Besylate 5 mg 06/30/25 09:00 06/30/25 10:04 Amlodipine Besylate 5 Mg Tablet PO 5 mg DAILY SUPA Administration Aspirin 325 mg 06/30/25 09:00 06/30/25 10:04 Aspirin 325 Mg Enteric Tablet PO 325 mg QAM SUPA Administration Dextrose 12.5 gm 06/29/25 12:50 Dextrose 50% 25 Gm/50 Ml Syringe IV PUSH PRN PRN Hypoglycemia Protocol Dicyclomine HCl 20 mg 06/29/25 12:42 Dicyclomine Hcl 10 Mg Capsule PO QID PRN Abdominal Cramping Escitalopram Oxalate 5 mg 06/30/25 09:00 06/30/25 10:06 Escitalopram Oxalate 5 Mg Tablet PO 5 mg DAILY SUPA Administration Ferrous Sulfate 324 mg 06/30/25 09:00 06/30/25 10:05 Ferrous Sulfate [address] BY MOUTH 324 mg DAILY SUPA Administration Flecainide Acetate 100 mg 06/29/25 21:00 06/30/25 21:30 Flecainide Acetate 100 Mg Tablet PO Not Given Q12H SUPA Furosemide 40 mg 07/01/25 09:00 Furosemide Inj 40 Mg/4 Ml Vial IV PUSH BID SUPA Glucagon 1 mg 06/29/25 12:50 Glucagon For Inj 1 Mg Vial IM PRN PRN Hypoglycemia Protocol Glucagon 1 mg 07/01/25 02:06 Glucagon For Inj 1 Mg Vial IM PRN PRN Hypoglycemia Protocol Glucose 15 gm 06/29/25 12:50 Glucose Oral Gel 15 Gm Of Glucse In 37.5 Gm Tube PO PRN PRN Hypoglycemia Protocol Heparin Sodium (Porcine) 5,000 units 07/01/25 14:00 07/02/25 14:38 Heparin Sodium 5,000 Units/Ml Vial SUB-Q 5,000 units Q8HR SUPA Administration Albumin Human 50 mls @ 999 mls/hr 06/29/25 11:31 Albutein IVPB 07/29/25 11:30 Q10M PRN HYPOTENSION Metronidazole 500 mg in 100 mls @ 100 mls/hr 06/29/25 18:00 07/02/25 11:50 Flagyl 500 Mg/Iso Soln 100 Ml IVPB Infused Q8H SUPA Infusion Dextrose 1,000 mls @ 100 mls/hr 06/29/25 12:50 Dextrose 5% 1,000 Ml IVPB PRN PRN Hypoglycemia Protocol Fentanyl Citrate 2,500 mcg in 250 mls @ 5 mls/hr 06/30/25 21:15 07/01/25 14:00 Fentanyl 2,500 Mcg/Ns 250 Ml IV CONT Infused .Q50H SUPA Titration Protocol 50 MCG/HR Midazolam HCl 100 mg in 100 mls @ 5 mls/hr 06/30/25 21:15 07/02/25 14:00 Versed 100 Mg/Ns 100 Ml IV CONT 5 mg/hr .Q20H SUPA 5 mls/hr Titration Protocol 5 MG/HR Levetiracetam 500 mg in 100 mls @ 400 mls/hr 07/01/25 09:00 07/02/25 09:35 Keppra Iv IVPB Infused Q12HR SUPA Infusion Cefepime HCl 1 gm/ Sodium 50 mls @ 100 mls/hr 07/01/25 14:00 07/02/25 15:10 Chloride IVPB Infused Q24H SUPA Infusion Valproate Sodium 1,000 mg/ 60 mls @ 52.5 mls/hr 07/01/25 17:00 07/02/25 10:50 Dextrose IVPB Infused Q8H SUPA Infusion Propofol 100 mls @ 9.876 mls/hr 07/01/25 12:35 07/02/25 14:00 Diprivan IV CONT 20 mcg/kg/min .Q10H8M SUPA 9.88 mls/hr Titration Protocol 20 MCG/KG/MIN Norepinephrine Bitartrate 8 mg in 250 mls @ 0 mls/hr 07/01/25 12:35 07/02/25 14:00 Levophed 8 Mg/D5w 250 Ml IV CONT 1 mcg/min .Q0M SUPA 1.88 mls/hr Titration Protocol Insulin Aspart 3 - 6 units 07/01/25 06:00 07/02/25 12:53 Insulin Aspart (*Bkc) 100 Units/Ml SUB-Q Not Given Q6HR SUPA Protocol Lidocaine/Prilocaine 1 each 06/29/25 11:33 06/29/25 12:57 Lidocaine/Prilocaine Cream 2.5-2.5% Tube TOPICAL 1 each WITH DIALYSIS PRN Administration for dialysis Protocol Metoprolol Succinate 25 mg 06/30/25 09:00 06/30/25 10:06 Metoprolol Succinate Ext Rel 25 Mg Tabcr PO 25 mg QAM SUPA Administration Multi-Ingred Cream/Lotion/Oil/Oint 1 applic 07/01/25 11:00 07/02/25 09:20 Mineral Oil/White Petrolatum Ointment EACH EYE 1 applic Q12HR SUPA Administration Ondansetron HCl 4 mg 06/29/25 10:42 06/30/25 17:05 Ondansetron Inj 4 Mg/2 Ml Vial IV PUSH 4 mg Q4H PRN Administration Nausea Pantoprazole Sodium 40 mg 07/02/25 09:00 07/02/25 09:19 Pantoprazole Sodium Iv 40 Mg Vial IV PUSH 40 mg QAM SUPA Administration Perflutren Lipid Microsphere 0 ml 07/01/25 11:25 Perflutren Lipid Microspheres 1.5 Ml Vial Diluted To 10 Ml Total Volume IV PUSH 07/04/25 11:25 ONCE PRN adequate visualization Protocol Polyethylene Glycol 17 gm 06/29/25 12:42 Polyethylene Glycol 3350 17 Gm Powd.Pack PO QAM PRN Constipation Sodium Chloride 10 ml 07/01/25 14:00 07/02/25 15:09 Central Line Flush IV PUSH 10 ml Q8HR SUPA Administration Sodium Chloride 20 ml 07/01/25 09:09 Central Line Flush IV PUSH PRN PRN after blood draws Tamsulosin HCl 0.4 mg 06/30/25 09:00 06/30/25 10:06 Tamsulosin Hcl 0.4 Mg Capsule PO 0.4 mg DAILY SUPA Administration Radiology Results: ITS Impressions Abdomen/Pelvis CT 06/30/25 11:54 IMPRESSION: 1. No abscess identified. No free intraperitoneal air identified. 2. Small amount of new nonspecific amount of fat stranding and fluid in the abdomen and pelvis. 3. New small right-sided pleural effusion. 4. New tiny left-sided pleural effusion. 5.There are two new moderate-sized bandlike opacities in the right lower lung and a new small bandlike opacity in the left lower lung. Differential includes atelectasis or pneumonia. Correlate clinically. Recommend follow-up to resolution. 6. Redemonstration of the mild left-sided hydronephrosis and mild left-sided hydroureter. No CT evidence for renal, ureteral or bladder calculi. 7. Slight improvement in the concentric thickening of the ramey of the bladder. Correlate clinically. 8. Redemonstration of the short segment focal thickening of the ramey of the distal descending colon and proximal sigmoid colon. Differential includes incomplete bowel wall distention, diverticulitis or mass. Chest CTA 06/30/25 22:43 IMPRESSION: No pulmonary embolus. No thoracic aortic dissection or dilatation. Large bilateral pleural effusions, right greater than left Abdomen X-Ray 07/01/25 07:07 IMPRESSION: 1. Orogastric tube in stomach. 2. Small right pleural effusion with atelectasis and/or pneumonia in the bilateral lower lung zones. Head CT 07/01/25 08:10 IMPRESSION: 1. 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 No acute intracranial process. Abdomen Ultrasound 07/01/25 13:28 IMPRESSION: 1. Common bile duct diameter of 7 mm at the upper limits of normal for age with no evident cholelithiasis, gallbladder dilation or intrahepatic biliary ductal dilation. 2. Right pleural effusion. Chest X-Ray 07/02/25 06:41 Impression: Oxsim-px-pdivridr pleural effusion with moderate pulmonary edema pattern and probable left basilar atelectasis. Support tubes, as above. Extensive left-sided subcutaneous emphysema. Labs Labs: Laboratory Results - last 24 hr 07/01/25 07/01/25 07/01/25 16:54 17:07 18:10 WBC RBC Hgb Hct MCV MCH MCHC RDW Plt Count MPV Immature Gran % (Auto) Neut % (Auto) Lymph % (Auto) [place] % (Auto) Eos % (Auto) Baso % (Auto) Lymph # (Auto) [place] # (Auto) Eos # (Auto) Baso # (Auto) Abs Immat Gran (auto) Absolute Neuts (auto) Absolute Nucleated RBC Nucleated RBC % % Immature Plt Fraction PT INR APTT Puncture Site ABG pH ABG pCO2 ABG pO2 ABG PO2/FiO2 Ratio ABG HCO3 ABG O2 Saturation ABG O2 Content ABG Base Excess A-a Gradient Oxyhemoglobin Carboxyhemoglobin Methemoglobin Reduced Hemoglobin Total Hemoglobin O2 Delivery Device O2 Liters/Min Minute Volume Vent Rate Vent Mode FiO2 Tidal Volume PEEP Peak Inspir Pressure Pressure Support Sodium Potassium Chloride Carbon Dioxide Anion Gap BUN Creatinine Estim Creat Clear Calc Estimated GFR Glucose POC Capillary Glucose 104 106 H Lactic Acid Calcium Phosphorus Magnesium Total Bilirubin AST ALT Alkaline Phosphatase Total Creatine Kinase 122 Total Protein Albumin Lipase [facility] 07/01/25 07/01/25 07/01/25 19:00 20:03 21:03 WBC RBC Hgb Hct MCV MCH MCHC RDW Plt Count MPV Immature Gran % (Auto) Neut % (Auto) Lymph % (Auto) [place] % (Auto) Eos % (Auto) Baso % (Auto) Lymph # (Auto) [place] # (Auto) Eos # (Auto) Baso # (Auto) Abs Immat Gran (auto) Absolute Neuts (auto) Absolute Nucleated RBC Nucleated RBC % % Immature Plt Fraction PT INR APTT Puncture Site ABG pH ABG pCO2 ABG pO2 ABG PO2/FiO2 Ratio ABG HCO3 ABG O2 Saturation ABG O2 Content ABG Base Excess A-a Gradient Oxyhemoglobin Carboxyhemoglobin Methemoglobin Reduced Hemoglobin Total Hemoglobin O2 Delivery Device O2 Liters/Min Minute Volume Vent Rate Vent Mode FiO2 Tidal Volume PEEP Peak Inspir Pressure Pressure Support Sodium Potassium Chloride Carbon Dioxide Anion Gap BUN Creatinine Estim Creat Clear Calc Estimated GFR Glucose POC Capillary Glucose 95 87 87 Lactic Acid Calcium Phosphorus Magnesium Total Bilirubin AST ALT Alkaline Phosphatase Total Creatine Kinase Total Protein Albumin Lipase [facility] 07/01/25 07/01/25 07/02/25 22:05 23:04 00:05 WBC RBC Hgb Hct MCV MCH MCHC RDW Plt Count MPV Immature Gran % (Auto) Neut % (Auto) Lymph % (Auto) [place] % (Auto) Eos % (Auto) Baso % (Auto) Lymph # (Auto) [place] # (Auto) Eos # (Auto) Baso # (Auto) Abs Immat Gran (auto) Absolute Neuts (auto) Absolute Nucleated RBC Nucleated RBC % % Immature Plt Fraction PT INR APTT Puncture Site ABG pH ABG pCO2 ABG pO2 ABG PO2/FiO2 Ratio ABG HCO3 ABG O2 Saturation ABG O2 Content ABG Base Excess A-a Gradient Oxyhemoglobin Carboxyhemoglobin Methemoglobin Reduced Hemoglobin Total Hemoglobin O2 Delivery Device O2 Liters/Min Minute Volume Vent Rate Vent Mode FiO2 Tidal Volume PEEP Peak Inspir Pressure Pressure Support Sodium Potassium Chloride Carbon Dioxide Anion Gap BUN Creatinine Estim Creat Clear Calc Estimated GFR Glucose POC Capillary Glucose 91 88 83 Lactic Acid Calcium Phosphorus Magnesium Total Bilirubin AST ALT Alkaline Phosphatase Total Creatine Kinase Total Protein Albumin Lipase TSH 07/02/25 07/02/25 07/02/25 01:03 02:10 03:06 WBC RBC Hgb Hct MCV MCH MCHC RDW Plt Count MPV Immature Gran % (Auto) Neut % (Auto) Lymph % (Auto) [place] % (Auto) Eos % (Auto) Baso % (Auto) Lymph # (Auto) [place] # (Auto) Eos # (Auto) Baso # (Auto) Abs Immat Gran (auto) Absolute Neuts (auto) Absolute Nucleated RBC Nucleated RBC % % Immature Plt Fraction PT INR APTT Puncture Site ABG pH ABG pCO2 ABG pO2 ABG PO2/FiO2 Ratio ABG HCO3 ABG O2 Saturation ABG O2 Content ABG Base Excess A-a Gradient Oxyhemoglobin Carboxyhemoglobin Methemoglobin Reduced Hemoglobin Total Hemoglobin O2 Delivery Device O2 Liters/Min Minute Volume Vent Rate Vent Mode FiO2 Tidal Volume PEEP Peak Inspir Pressure Pressure Support Sodium Potassium Chloride Carbon Dioxide Anion Gap BUN Creatinine Estim Creat Clear Calc Estimated GFR Glucose POC Capillary Glucose 84 99 102 Lactic Acid Calcium Phosphorus Magnesium Total Bilirubin AST ALT Alkaline Phosphatase Total Creatine Kinase Total Protein Albumin Lipase [facility] 07/02/25 07/02/25 07/02/25 05:00 05:03 05:36 WBC RBC Hgb Hct MCV MCH MCHC RDW Plt Count MPV Immature Gran % (Auto) Neut % (Auto) Lymph % (Auto) [place] % (Auto) Eos % (Auto) Baso % (Auto) Lymph # (Auto) [place] # (Auto) Eos # (Auto) Baso # (Auto) Abs Immat Gran (auto) Absolute Neuts (auto) Absolute Nucleated RBC Nucleated RBC % % Immature Plt Fraction PT INR APTT Puncture Site Artline ABG pH 7.465 H ABG pCO2 33.8 L ABG pO2 55.2 L ABG PO2/FiO2 Ratio 1.84 ABG HCO3 23.8 ABG O2 Saturation 90.7 L ABG O2 Content 10.7 L ABG Base Excess 0.3 A-a Gradient 119.0 Oxyhemoglobin 86.1 L* Carboxyhemoglobin 1.6 Methemoglobin 0.3 Reduced Hemoglobin 12.0 H Total Hemoglobin 8.8 L O2 Delivery Device Ventilator O2 Liters/Min Not Reportable Minute Volume Not Reportable Vent Rate 16 Vent Mode Cmv FiO2 30 Tidal Volume 400 PEEP 5 Peak Inspir Pressure Not Reportable Pressure Support Not Reportable Sodium Potassium Chloride Carbon Dioxide Anion Gap BUN Creatinine Estim Creat Clear Calc Estimated GFR Glucose POC Capillary Glucose 112 H 115 H Lactic Acid Calcium Phosphorus Magnesium Total Bilirubin AST ALT Alkaline Phosphatase Total Creatine Kinase Total Protein Albumin Lipase TSH 07/02/25 07/02/25 07/02/25 06:02 06:14 07:03 WBC 10.1 H RBC 2.52 L Hgb 8.1 L Hct 24.1 L MCV 95.6 MCH 32.1 MCHC 33.6 RDW 14.4 Plt Count 109 L MPV 9.5 Immature Gran % (Auto) 0.2 Neut % (Auto) 45.9 Lymph % (Auto) 47.6 H [place] % (Auto) 3.9 Eos % (Auto) 1.7 Baso % (Auto) 0.7 Lymph # (Auto) 4.83 H [place] # (Auto) 0.4 Eos # (Auto) 0.2 Baso # (Auto) 0.1 Abs Immat Gran (auto) 0.02 Absolute Neuts (auto) 4.7 Absolute Nucleated RBC 0.000 Nucleated RBC % 0.0 % Immature Plt Fraction 2.3 PT 18.5 H INR 1.5 APTT 68.5 H Puncture Site ABG pH ABG pCO2 ABG pO2 ABG PO2/FiO2 Ratio ABG HCO3 ABG O2 Saturation ABG O2 Content ABG Base Excess A-a Gradient Oxyhemoglobin Carboxyhemoglobin Methemoglobin Reduced Hemoglobin Total Hemoglobin O2 Delivery Device O2 Liters/Min Minute Volume Vent Rate Vent Mode FiO2 Tidal Volume PEEP Peak Inspir Pressure Pressure Support Sodium 134 L Potassium 3.2 L Chloride 99 Carbon Dioxide 25 Anion Gap 10 BUN 53 H D Creatinine 6.04 H Estim Creat Clear Calc 10 Estimated GFR 9 L Glucose 114 H POC Capillary Glucose 114 H 111 H Lactic Acid 1.5 Calcium 8.1 L Phosphorus 4.5 Magnesium 2.0 Total Bilirubin 0.5 AST 136 H ALT 241 H Alkaline Phosphatase 70 Total Creatine Kinase 86 Total Protein 5.1 L Albumin 2.6 L Lipase 21 L TSH 0.493 07/02/25 07/02/25 07/02/25 07:33 08:10 09:12 WBC RBC Hgb Hct MCV MCH MCHC RDW Plt Count MPV Immature Gran % (Auto) Neut % (Auto) Lymph % (Auto) [place] % (Auto) Eos % (Auto) Baso % (Auto) Lymph # (Auto) [place] # (Auto) Eos # (Auto) Baso # (Auto) Abs Immat Gran (auto) Absolute Neuts (auto) Absolute Nucleated RBC Nucleated RBC % % Immature Plt Fraction PT INR APTT Puncture Site Artline ABG pH 7.559 H* ABG pCO2 24.4 L ABG pO2 121.3 H ABG PO2/FiO2 Ratio 2.02 ABG HCO3 21.3 L ABG O2 Saturation 98.9 ABG O2 Content 9.8 L ABG Base Excess -0.6 A-a Gradient 279.7 Oxyhemoglobin 96.3 Carboxyhemoglobin 1.6 Methemoglobin 0.3 Reduced Hemoglobin 1.8 Total Hemoglobin 7.0 L* O2 Delivery Device Ventilator O2 Liters/Min Not Reportable Minute Volume Not Reportable Vent Rate 16 Vent Mode Cmv FiO2 60 Tidal Volume 400 PEEP 5 Peak Inspir Pressure Not Reportable Pressure Support Not Reportable Sodium Potassium Chloride Carbon Dioxide Anion Gap BUN Creatinine Estim Creat Clear Calc Estimated GFR Glucose POC Capillary Glucose 108 H 120 H Lactic Acid Calcium Phosphorus Magnesium Total Bilirubin AST ALT Alkaline Phosphatase Total Creatine Kinase Total Protein Albumin Lipase TSH 07/02/25 07/02/25 07/02/25 10:02 11:02 11:24 WBC RBC Hgb Hct MCV MCH MCHC RDW Plt Count MPV Immature Gran % (Auto) Neut % (Auto) Lymph % (Auto) [place] % (Auto) Eos % (Auto) Baso % (Auto) Lymph # (Auto) [place] # (Auto) Eos # (Auto) Baso # (Auto) Abs Immat Gran (auto) Absolute Neuts (auto) Absolute Nucleated RBC Nucleated RBC % % Immature Plt Fraction PT INR APTT Puncture Site Artline ABG pH 7.508 H* ABG pCO2 26.9 L ABG pO2 101.2 H ABG PO2/FiO2 Ratio 2.53 ABG HCO3 20.9 L ABG O2 Saturation 98.2 ABG O2 Content 9.2 L ABG Base Excess -1.9 A-a Gradient 153.1 Oxyhemoglobin 95.2 Carboxyhemoglobin 1.7 Methemoglobin 0.3 Reduced Hemoglobin 2.8 Total Hemoglobin 6.7 L* O2 Delivery Device Ventilator O2 Liters/Min Not Reportable Minute Volume Not Reportable Vent Rate 12 Vent Mode Cmv FiO2 40 Tidal Volume 400 PEEP 8 Peak Inspir Pressure Not Reportable Pressure Support Not Reportable Sodium Potassium Chloride Carbon Dioxide Anion Gap BUN Creatinine Estim Creat Clear Calc Estimated GFR Glucose POC Capillary Glucose 106 H 108 H Lactic Acid Calcium Phosphorus Magnesium Total Bilirubin AST ALT Alkaline Phosphatase Total Creatine Kinase Total Protein Albumin Lipase [facility] 07/02/25 07/02/25 07/02/25 11:46 12:10 13:11 WBC 7.8 RBC 2.36 L Hgb 7.6 L Hct 22.5 L MCV 95.3 MCH 32.2 MCHC 33.8 RDW 14.5 Plt Count 102 L MPV 9.8 Immature Gran % (Auto) Neut % (Auto) Lymph % (Auto) [place] % (Auto) Eos % (Auto) Baso % (Auto) Lymph # (Auto) [place] # (Auto) Eos # (Auto) Baso # (Auto) Abs Immat Gran (auto) Absolute Neuts (auto) Absolute Nucleated RBC Nucleated RBC % % Immature Plt Fraction 2.6 PT 18.5 H INR 1.5 APTT 57.9 H Puncture Site ABG pH ABG pCO2 ABG pO2 ABG PO2/FiO2 Ratio ABG HCO3 ABG O2 Saturation ABG O2 Content ABG Base Excess A-a Gradient Oxyhemoglobin Carboxyhemoglobin Methemoglobin Reduced Hemoglobin Total Hemoglobin O2 Delivery Device O2 Liters/Min Minute Volume Vent Rate Vent Mode FiO2 Tidal Volume PEEP Peak Inspir Pressure Pressure Support Sodium 134 L Potassium 3.3 L Chloride 99 Carbon Dioxide 24 Anion Gap 11 BUN 57 H Creatinine 6.03 H Estim Creat Clear Calc 10 Estimated GFR 9 L Glucose 102 POC Capillary Glucose 103 102 Lactic Acid Calcium 7.4 L Phosphorus 4.7 H Magnesium Total Bilirubin AST ALT Alkaline Phosphatase Total Creatine Kinase 72 Total Protein Albumin Lipase [facility] 07/02/25 15:03 WBC RBC Hgb Hct MCV MCH MCHC RDW Plt Count MPV Immature Gran % (Auto) Neut % (Auto) Lymph % (Auto) [place] % (Auto) Eos % (Auto) Baso % (Auto) Lymph # (Auto) [place] # (Auto) Eos # (Auto) Baso # (Auto) Abs Immat Gran (auto) Absolute Neuts (auto) Absolute Nucleated RBC Nucleated RBC % % Immature Plt Fraction PT INR APTT Puncture Site ABG pH ABG pCO2 ABG pO2 ABG PO2/FiO2 Ratio ABG HCO3 ABG O2 Saturation ABG O2 Content ABG Base Excess A-a Gradient Oxyhemoglobin Carboxyhemoglobin Methemoglobin Reduced Hemoglobin Total Hemoglobin O2 Delivery Device O2 Liters/Min Minute Volume Vent Rate Vent Mode FiO2 Tidal Volume PEEP Peak Inspir Pressure Pressure Support Sodium Potassium Chloride Carbon Dioxide Anion Gap BUN Creatinine Estim Creat Clear Calc Estimated GFR Glucose POC Capillary Glucose 96 Lactic Acid Calcium Phosphorus Magnesium Total Bilirubin AST ALT Alkaline Phosphatase Total Creatine Kinase Total Protein Albumin Lipase TSH Quality VTE Prophylaxis VTE prophylaxis: pharmacologic ordered Hospitalist MIPS Advance Care Plan I have confirmed that the patient's Advanced Care Plan is present, code status is documented, or surrogate decision maker is listed in patient medical record.: Yes Medication Reconciliation I have utilized all available resources to obtain, update and review the patients current medications (includes all prescriptions, OTC, herbals, cannabis, and nutritional supplements).: Yes
[2025-07-02 18:25] LABS: Creatine Kinase 60 U/L (55-170)
[2025-07-03] VITALS (53 sets, daily range): BP systolic 105–147; BP diastolic 39–79; PULSE 47–118; RESP 12–17; TEMP 35.3–37.7; O2SAT 93–100; BMI 29.8
--- NOTE | 2025-07-03 | ECHO_ITS ---
Patient Info Name: Sukhdev Lowery Age: 70 years : 1955 Gender: Male Ht: 67 in Wt: 181 lbs BSA: 1.99 m2 HR: 66 bpm BP: 105 / 39 mmHg Technical Quality: Poor, Pt on vent Exam Date: 07/03/2025 9:51 AM Patient Status: I Admit Date: 06/30/2025 Exam Type: CA echo dop color flow w con Complete two-dimensional, color flow and Doppler transthoracic echocardiogram is performed with contrast to opacify the left ventricle and to improve the deliniation of the left ventricle endocardial borders. Staff Referring Physician: Caren Guerrero MD Management Consulting: Jennifer Dubon Attending Provider: Harper Esposito MD Contrast/Agitated Saline Contrast/Ag. Saline: Definity Amount: 2.00 ml Existing IV Access: Yes IV Access Condition: patent with no signs of infiltration Reason for Poor Study: poor echocardiographic windows Summary 1. Left ventricular systolic function is hyperdynamic, estimated at >70. 2. There is mildly increased left ventricular wall thickness. 3. There is moderate aortic valve stenosis with a peak velocity of 236 cm/s, mean gradient of 14 mmHg, and aortic valve area of 1.2 cm2. 4. There is mild aortic valve calcification. 5. There is trace tricuspid valve regurgitation. 6. Moderate pulmonary hypertension, estimated pulmonary arterial systolic pressure is 49 mmHg. 7. There is trivial pericardial effusion. 8. Pleural effusion. Left Ventricle Left ventricular chamber dimension is normal. Left ventricular systolic function is hyperdynamic, estimated at >70. There is mildly increased left ventricular wall thickness. Left ventricular septal wall motion is normal. The left ventricular diastolic function is abnormal. Right Ventricle Right ventricular chamber dimension is normal. Right ventricular systolic function is normal. Left Atria Left atrial chamber dimension is normal. Right Atria Right atrial chamber dimension is normal. Aortic Valve The aortic valve is not well visualized. There is moderate aortic valve stenosis with a peak velocity of 236 cm/s, mean gradient of 14 mmHg, and aortic valve area of 1.2 cm2. There is no aortic valve regurgitation. There is mild aortic valve calcification. Pulmonic Valve The pulmonic valve is normal. There is no pulmonic valve stenosis. There is no pulmonic regurgitation. Mitral Valve The mitral valve has normal leaflets. There is no mitral valve stenosis. There is no mitral valve regurgitation. There is mild mitral valve calcification. Tricuspid Valve The tricuspid valve leaflets are normal. There is no significant tricuspid valve stenosis. There is trace tricuspid valve regurgitation. Moderate pulmonary hypertension, estimated pulmonary arterial systolic pressure is 49 mmHg. Pericardium/Pleural The pericardium appears normal. There is trivial pericardial effusion. Inferior Vena Cava Normal inferior vena cava with >50% collapse upon inspiration consistent with elevated right atrial pressure, 10 mmHg. Aorta The aortic root size at the sinus of Valsalva is normal. The prox ascending aorta size is normal. Left Ventricular Outflow Tract Name Value Normal LVOT 2D LVOT Diameter 1.7 cm LVOT Doppler LVOT Peak Velocity 121 cm/s LVOT Peak Gradient 6 mmHg LVOT Mean Gradient 3 mmHg LVOT VTI 27 cm LVOT VTI/AV VTI Ratio 0.6 LVOT Stroke Volume 59 ml LVOT CO 11.5 l/min LVOT CI 5.8 l/min/m2 Pulmonic Valve Name Value Normal PV Doppler PV Peak Velocity 123 cm/s PV Peak Gradient 6 mmHg Mitral Valve Name Value Normal MV Diastolic Function MV E Peak Velocity 99 cm/s MV A Peak Velocity 122 cm/s MV E/A 0.8 MV Decel Time (PW) 388 ms MV Annular TDI MV E/e' (Septal) 16.0 MV E/e' (Lateral) 13.1 MV E/e' (Average) 14.5 Tricuspid Valve Name Value Normal TV Regurgitation Doppler TR Peak Velocity 312 cm/s TR Peak Gradient 39 mmHg Estimated PAP/RSVP RA Pressure 10 mmHg <=5 PA Systolic Pressure 49 mmHg <36 RV Systolic Pressure 49 mmHg <36 TV Annular TDI TV Lateral Lucy s' Velocity 17.2 cm/s >=9.5 Aorta Name Value Normal Ascending Aorta Ao Root Diameter (MM) 3.0 cm Ao Root Diam Index (MM) 1.5 cm/m2 Aortic Valve Name Value Normal AV Doppler AV Peak Velocity 236 cm/s AV Peak Gradient 22 mmHg AV Mean Gradient 14 mmHg AV VTI 48 cm AV Area (Cont Eq VTI) 1.2 cm2 >=3.0 AV Area (Cont Eq Farhad) 1.1 cm2 AV DI (Farhad) 0.51 AV Regurgitation 2D LVOT Area 2.2 cm2 Ventricles Name Value Normal LV Dimensions 2D/MM IVS Diastolic Thickness (2D) 1.1 cm 0.6-1.0 LVID Diastole (2D) 4.1 cm 4.2-5.8 LVIW Diastolic Thickness (2D) 1.1 cm 0.6-1.0 LVID Systole (2D) 2.8 cm 2.5-4.0 LVOT Diameter 1.7 cm LV Mass (2D Cubed) 144.19 g 88.00-224.00 LV Mass Index (2D Cubed) 72 g/m2 49-115 Relative Wall Thickness (2D) 0.51 <=0.42 LV Fractional Shortening/Ejection Fraction 2D/MM LV Fractional Shortening (2D) 32 % 25-43 LV EF (2D Teichholz) 60 % LV Diastolic Volume (4C MOD) 109 ml LV EF (4C MOD) 72 % LV Diastolic Volume (2C MOD) 89 ml LV EF (2C MOD) 82 % LV Diastolic Volume (BP MOD) 103 ml 62-150 LV Diastolic Volume Index (BP MOD) 52 ml/m2 34-74 LV Systolic Volume (BP MOD) 22 ml 21-61 LV Systolic Volume Index (BP MOD) 11 ml/m2 11-31 LV EF (BP MOD) 78 % 52-72 LV Diastolic Length (4C) 7.5 cm LV Systolic Length (4C) 6.5 cm LV Stroke Volume (4C MOD) 78 ml RV Dimensions 2D/MM RVID Diastole (2D) 3.7 cm 2.1-3.5 Atria Name Value Normal LA Dimensions LA Dimension (MM) 3.6 cm 3.0-4.0 LA Volume (4C A-L) 41 ml LA Volume (BP A-L) 48 ml RA Dimensions RA Systolic Major [place] Length (4C) 5.5 cm 2.1-2.7 RA Area (4C) 18.6 cm2 <=18.0 Report Signatures
[2025-07-03] MEDS: VALPROATE SODIUM INJ 1,000 MG in DEXTROSE 5% IN WATER 50 ML 52.5 MG IVPB ×3 (00:02→17:16)
[2025-07-03] MEDS: metroNIDAZOLE 500 MG/ISO 100ML 500 MG/100 ML BAG 100 MG IVPB ×3 (02:58→17:16)
[2025-07-03] MEDS: PROPOFOL IV EMULSION 100 ML 7.41 MG IV CONT (04:15)
[2025-07-03 04:28] LABS: Hematocrit 23.0 % (42.0-52.0); Hemoglobin 7.7 g/dL (14.0-18.0); Immature Granulocyte Percent A 0.1 % (0-0.5); Immature Platelet Fraction Pct 2.2 % (0.9-11.2); Lymphocytes Absolute Auto 3.97 K/mm3 (0.9-3.2); Mean Corpuscular HGB Conc 33.5 g/dl (32-36); Mean Corpuscular Hemoglobin 31.7 pg (26-34); Mean Corpuscular Volume 94.7 fl (80-100); Nucleated Red Blood Cells Absolute Auto 0.000 K/mm3 (0.0-0.012); Nucleated Red Blood Cells Perc 0.0 % (0.0-0.2); Platelet Count Result 105 k/mm3 (150-375); Red Blood Count 2.43 M/mm3 (4.6-6.20); White Blood Count 8.1 K/mm3 (4.5-10.0)
[2025-07-03 04:37] LABS: Ammonia < 9 umol/L (9-30)
[2025-07-03 04:39] LABS: INR 1.4; Prothrombin Time 17.3 Seconds (11.1-14.7)
[2025-07-03 04:40] LABS: Partial Thromboplastin Time 63.2 Seconds (22.3-36.8)
[2025-07-03 04:45] LABS: Alanine Aminotransferase 188 U/L (6-50); Albumin Level 2.5 g/dL (3.5-5.1); Alkaline Phosphatase 67 U/L (38-126); Anion Gap 11 mmol/L (4-12); Aspartate Amino Transferase 106 U/L (17-59); Bilirubin,Total 0.3 mg/dL (0.2-1.3); Blood Urea Nitrogen 62 mg/dL (9-20); Calcium 7.3 mg/dL (8.4-10.2); Carbon Dioxide 23 mmol/L (22-30); Chloride 99 mmol/L (98-107); Creatine Kinase 55 U/L (55-170); Estimated CRCL calculation 9 ml/min; Estimated Glomerular Filt Rate 8; Glucose 81 mg/dL (65-110); Lipase 26 U/L (23-300); Magnesium 2.0 mg/dL (1.6-2.3); Potassium 3.4 mmol/L (3.4-5.0); Sodium 133 mmol/L (137-145); Total Protein 5.0 g/dL (6.3-8.2)
[2025-07-03 04:46] LABS: Alveolar/Arterial O2 Gradient 82.3 mmHg; Carboxyhemoglobin 1.3 % THb (0-2.0); Fractional Inspired Oxygen 30 %; HCO3 ABG 19.8 mEq/l (22.0-26.0); Methemoglobin ABG 0.3 %THb (0-1.5); Oxygen Content ABG 11.3 %vol (16.0-22.0); Oxygen Saturation ABG 97.9 % (95.0-100.0); PCO2 ABG 27.8 mmHg (35.0-45.0); PO2 ABG 98.9 mmHg (80.0-100.0); PO2 FiO2 Ratio Arterial Blood 3.30 %; Reduced Hemoglobin 3.0 %THb (0-5.0)
[2025-07-03 04:51] LABS: Arterial Blood Gas Tidal Volume 400 ml; Arterial Blood Gas Ventilator rate 12 /MIN
[2025-07-03 05:07] LABS: Site Drawn ARTLINE
[2025-07-03 05:21] LABS: Thyroid Stimulating Hormone 0.322 uIU/mL (0.465-4.680)
[2025-07-03] MEDS: CENTRAL LINE FLUSH 10 ML IV PUSH ×3 (06:14→22:31)
--- NOTE | 2025-07-03 09:25 | WPDINTPN ---
Progress Note: A&P Assessment and Plan (1) Cardiac arrest: Code(s): I46.9 - Cardiac arrest, cause unspecified Status: Acute Assessment and Plan: 06/29: 8:26 p.m. to 8:44 p.m. cardiac arrest with ACLS protocol and return of spontaneous circulation -etiology unknown, could be aspiration, arrhythmia, hypoxic -prior to that patient was last seen well at shift change which is approximately 7:00 p.m. -unknown amount of down time prior to the time he was found unresponsive -patient completed TTM and now we warm -check echocardiogram -06/30: CTA PE protocol: Negative for PE. No thoracic aortic dissection or dilatation. Large bilateral pleural effusions right greater than left (2) Acute respiratory failure with hypoxia: Code(s): J96.01 - Acute respiratory failure with hypoxia Status: Acute Assessment and Plan: Respiratory failure likely related to cardiac arrest -large bilateral pleural effusions -patient may require thoracentesis at some point once he is more stable. Will wait until neuro status assessment is more accurate -currently on CMV mode of ventilation peep of 5, 60% FiO2 with adequate O2 sats. Wean FiO2 to maintain O2 sats > 92% -chest x-ray and ABGs reviewed, ventilator adjusted -currently off sedation -increase tidal volume to 370 (3) ESRD on hemodialysis: Code(s): N18.6 - End stage renal disease; Z99.2 - Dependence on renal dialysis Status: Acute Assessment and Plan: Patient has a history of end-stage renal disease on hemodialysis which he gets at home -nephrology following and discussed the saturation equipment operator regarding dialysis today -monitor electrolytes and acid-base status (4) Diverticulitis: Code(s): K57.92 - Diverticulitis of intestine, part unspecified, without perforation or abscess without bleeding Status: Acute Assessment and Plan: 06/28: Patient presented the ED with abdominal pain, nausea vomiting, CT scan of the abdomen pelvis showed diverticulitis and discharged home on antibiotics. Pain worsened and he could not keep the antibiotics further medications down because of nausea and vomiting. 06/29: Patient presented back to the ED with similar complaints and was admitted to the medical floor with clear liquid diet, and IV antibiotics with ceftriaxone and metronidazole. -07/01/2025, switched ceftriaxone to cefepime and continue with metronidazole -GI following the patient 08/15: CT abdomen and pelvis IMPRESSION: 1. No abscess identified. No free intraperitoneal air identified. 2. Small amount of new nonspecific amount of fat stranding and fluid in the abdomen and pelvis. 3. New small right-sided pleural effusion. 4. New tiny left-sided pleural effusion. 5.There are two new moderate-sized bandlike opacities in the right lower lung and a new small bandlike opacity in the left lower lung. Differential includes atelectasis or pneumonia. Correlate clinically. Recommend follow-up to resolution. 6. Redemonstration of the mild left-sided hydronephrosis and mild left-sided hydroureter. No CT evidence for renal, ureteral or bladder calculi. 7. Slight improvement in the concentric thickening of the ramey of the bladder. Correlate clinically. 8. Redemonstration of the short segment focal thickening of the ramey of the distal descending colon and proximal sigmoid colon. Differential includes incomplete bowel wall distention, diverticulitis or mass. 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, not intractable, without status epilepticus Status: Acute Assessment and Plan: Intractable myoclonic seizures despite patient being on Versed infusion patient was given Ativan 4 mg IV x2, eventually was started on propofol -will hold propofol for neuro exam -continue Keppra and IV valproic acid, -neurology following the patient -myoclonic seizures post cardiac arrest is an ominous sign post, likely related to anoxic brain injury, patient does not have a history of seizure - will obtain EEG today -continue to monitor and treat (8) Anoxic brain injury: Code(s): G93.1 - Anoxic brain damage, not elsewhere classified Status: Acute Assessment and Plan: Suspected anoxic brain injury secondary to cardiac arrest. 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 Exam as above Will obtain EEG to rule out seizures (9) Pneumothorax: Code(s): J93.9 - Pneumothorax, unspecified Status: Acute Assessment and Plan: Radiologist reports Likely tiny left apical pneumothorax and left chest wall subcutaneous gas. Likely secondary to CPR the patient received many days ago. Will monitor closely. Hold on chest tube at this point if increase in size will consult surgery for chest tube insertion.. Plan DVT prophylaxis: Heparin subQ Stress ulcer prophylaxis: Protonix Nutrition: Start tube feeding Code Status: Full code I had long meeting with patient's daughter and other family members and updated with patient's status. I answer answered all their questions. Critical Care Time Spent: 35 minutes Due to a high probability of clinically significant, life threatening deterioration, the patient required my highest level of preparedness to intervene emergently and I personally spent this critical care time directly and personally managing the patient. This critical care time included obtaining a history; examining the patient; pulse oximetry; ordering and review of studies; arranging urgent treatment with development of a management plan; evaluation of patient's response to treatment; frequent reassessment; and discussions with other providers. It was exclusive of separately billable procedures and treating other patients and teaching time. Please see Assessment and Plan section and the rest of the note for further information on patient assessment and treatment This dictation may have been done utilizing a voice recognition system. Attempts have been made to correct errors. However, there may be uncorrected grammatical, spelling, and recognitions errors present. Subjective Date/time seen: 07/03/25 Overnight events reviewed. Patient was rewarmed yesterday and his temperature is low and he is on warming blanket Continues to be on mechanical ventilation 30% FiO2 and 8 of PEEP Levophed weaned off He was on propofol which was turned off this morning Other Vitals acceptable anuric and NPO Interval history: Reason for consult: Cardiac arrest, acute respiratory failure secondary cardiac arrest, diverticulitis, end-stage renal disease on hemodialysis, transaminitis, seizures/myoclonic jerks Review of Systems Review of Systems: ROS unobtainable: Yes unobtainable due to endotracheal tube, unobtainable due to medical condition and unobtainable due to mental status Exam Narrative: General: Intubated and on mechanical ventilation and sedated HEENT: Right pupil dilated, very sluggish, left pupil smaller and very sluggish, sclera is clear, ETT in place Neck:? Supple Respiratory:? Coarse breath sounds bilaterally, decreased at bases, no wheezing, adequate air entry Cardiac:? S1-S2 is normal, regular rate or rhythm Abdomen:? Soft, nontender, nondistended, absent bowel sounds Extremities:? Left upper ext extremity fistula with positive thrill, right BKA, 1+ edema bilateral lower extremities, palpable pedal pulses on the left foot Neuro:? Patient is intubated, is, does not open his eyes or follow simple commands, does not withdraw to pain Skin:? No skin lesions noted Psych:? Unable to assess at this time Objective Data Vital Signs Vital Signs: Vital Signs - 24 hr 07/02/25 10:00 07/02/25 10:00 07/02/25 10:00 Temperature 35.7 C L 35.7 C L Pulse Rate 48 L 47 L 48 L Respiratory Rate 12 12 12 Blood Pressure 113/41 L 106/39 L Pulse Oximetry 100 100 Oxygen Delivery Fraction of Inspired Oxygen 07/02/25 10:00 07/02/25 10:00 07/02/25 10:00 Temperature Pulse Rate 48 L 48 L 48 L Respiratory Rate 12 Blood Pressure 113/41 L Pulse Oximetry Oxygen Delivery Fraction of Inspired Oxygen 07/02/25 10:54 07/02/25 11:00 07/02/25 11:40 Temperature 35.8 C L 35.8 C L Pulse Rate 47 L 47 L 47 L Respiratory Rate 12 12 Blood Pressure 100/37 L 96/36 L Pulse Oximetry 100 100 100 Oxygen Delivery Mechanical Ventilation Fraction of Inspired Oxygen 40 07/02/25 12:00 07/02/25 12:00 07/02/25 12:00 Temperature 35.8 C L Pulse Rate 49 L 49 L 48 L Respiratory Rate 12 12 12 Blood Pressure 135/48 L Pulse Oximetry 100 Oxygen Delivery Fraction of Inspired Oxygen 07/02/25 12:00 07/02/25 12:00 07/02/25 12:00 Temperature Pulse Rate 49 L 48 L Respiratory Rate Blood Pressure 96/40 L Pulse Oximetry 100 Oxygen Delivery Mechanical Ventilation Fraction of Inspired Oxygen 40 07/02/25 12:00 07/02/25 12:15 07/02/25 13:00 Temperature 35.9 C L Pulse Rate 49 L 50 L Respiratory Rate 12 Blood Pressure 118/46 L 120/45 L Pulse Oximetry 100 Oxygen Delivery Fraction of Inspired Oxygen 40 07/02/25 14:00 07/02/25 14:00 07/02/25 14:00 Temperature 36.2 C L Pulse Rate 51 L 51 L 51 L Respiratory Rate 12 12 Blood Pressure 118/44 L Pulse Oximetry 100 Oxygen Delivery Fraction of Inspired Oxygen 07/02/25 14:00 07/02/25 14:00 07/02/25 14:34 Temperature Pulse Rate 51 L 51 L 51 L Respiratory Rate 12 Blood Pressure 118/44 L Pulse Oximetry 100 Oxygen Delivery Mechanical Ventilation Fraction of Inspired Oxygen 35 07/02/25 15:00 07/02/25 16:00 07/02/25 16:00 Temperature 36.3 C L 36.4 C Pulse Rate 52 L 54 L 53 L Respiratory Rate 12 12 Blood Pressure 122/46 L 124/50 L 122/50 L Pulse Oximetry 100 100 Oxygen Delivery Fraction of Inspired Oxygen 07/02/25 16:00 07/02/25 16:00 07/02/25 16:00 Temperature Pulse Rate 53 L 53 L Respiratory Rate 12 Blood Pressure Pulse Oximetry Oxygen Delivery Fraction of Inspired Oxygen 35 07/02/25 16:00 07/02/25 16:47 07/02/25 17:00 Temperature Pulse Rate 53 L 52 L Respiratory Rate 12 Blood Pressure Pulse Oximetry 100 100 Oxygen Delivery Mechanical Ventilation Mechanical Ventilation Fraction of Inspired Oxygen 30 30 07/02/25 17:01 07/02/25 17:30 07/02/25 17:38 Temperature Pulse Rate 52 L 53 L 52 L Respiratory Rate 12 12 12 Blood Pressure Pulse Oximetry Oxygen Delivery Fraction of Inspired Oxygen 07/02/25 18:00 07/02/25 18:00 07/02/25 18:00 Temperature 36.7 C Pulse Rate 54 L 54 L 54 L Respiratory Rate 12 12 Blood Pressure 118/39 L Pulse Oximetry 95 Oxygen Delivery Fraction of Inspired Oxygen 07/02/25 18:00 07/02/25 18:00 07/02/25 18:30 Temperature Pulse Rate 54 L 54 L 51 L Respiratory Rate 12 12 Blood Pressure 118/39 L Pulse Oximetry Oxygen Delivery Fraction of Inspired Oxygen 07/02/25 20:00 07/02/25 20:00 07/02/25 20:00 Temperature Pulse Rate 51 L 51 L 51 L Respiratory Rate 12 12 Blood Pressure 112/44 L Pulse Oximetry Oxygen Delivery Fraction of Inspired Oxygen 07/02/25 20:00 07/02/25 20:00 07/02/25 20:00 Temperature 36.5 C Pulse Rate 51 L 51 L Respiratory Rate 12 Blood Pressure 112/45 L Pulse Oximetry 100 Oxygen Delivery Fraction of Inspired Oxygen 30 07/02/25 20:00 07/02/25 20:10 07/02/25 22:00 Temperature Pulse Rate 51 L 50 L 51 L Respiratory Rate 12 Blood Pressure Pulse Oximetry 100 100 Oxygen Delivery Mechanical Ventilation Mechanical Ventilation Fraction of Inspired Oxygen 30 30 07/02/25 22:00 07/02/25 22:00 07/02/25 22:00 Temperature 36.1 C L Pulse Rate 51 L 51 L 51 L Respiratory Rate 12 12 12 Blood Pressure 116/41 L Pulse Oximetry 100 Oxygen Delivery Fraction of Inspired Oxygen 07/02/25 22:00 07/02/25 23:35 07/03/25 00:00 Temperature Pulse Rate 51 L 49 L 49 L Respiratory Rate 12 Blood Pressure 116/41 L Pulse Oximetry 100 Oxygen Delivery Mechanical Ventilation Fraction of Inspired Oxygen 30 07/03/25 00:00 07/03/25 00:00 07/03/25 00:00 Temperature 35.7 C L Pulse Rate 49 L 49 L 49 L Respiratory Rate 12 12 Blood Pressure 112/40 L 117/41 L Pulse Oximetry 100 Oxygen Delivery Fraction of Inspired Oxygen 07/03/25 00:00 07/03/25 00:00 07/03/25 00:00 Temperature Pulse Rate 49 L 49 L Respiratory Rate 12 Blood Pressure Pulse Oximetry 100 Oxygen Delivery Mechanical Ventilation Fraction of Inspired Oxygen 30 30 07/03/25 00:30 07/03/25 02:00 07/03/25 02:00 Temperature 35.5 C L Pulse Rate 49 L 49 L 49 L Respiratory Rate 12 12 Blood Pressure 115/41 L Pulse Oximetry 100 Oxygen Delivery Fraction of Inspired Oxygen 07/03/25 02:00 07/03/25 02:00 07/03/25 02:00 Temperature Pulse Rate 49 L 49 L 49 L Respiratory Rate 12 12 Blood Pressure 115/41 L Pulse Oximetry Oxygen Delivery Fraction of Inspired Oxygen 07/03/25 02:34 07/03/25 03:30 07/03/25 03:45 Temperature 35.4 C L 35.4 C L Pulse Rate 49 L Respiratory Rate Blood Pressure Pulse Oximetry 100 Oxygen Delivery Mechanical Ventilation Fraction of Inspired Oxygen 30 07/03/25 04:00 07/03/25 04:00 07/03/25 04:00 Temperature 35.4 C L Pulse Rate 47 L 47 L 47 L Respiratory Rate 12 12 12 Blood Pressure 105/69 Pulse Oximetry 100 Oxygen Delivery Fraction of Inspired Oxygen 07/03/25 04:00 07/03/25 04:00 07/03/25 04:00 Temperature Pulse Rate 47 L 47 L 47 L Respiratory Rate 12 Blood Pressure 105/39 L Pulse Oximetry 100 Oxygen Delivery Mechanical Ventilation Fraction of Inspired Oxygen 30 07/03/25 04:00 07/03/25 04:00 07/03/25 04:15 Temperature 35.4 C L Pulse Rate 47 L Respiratory Rate 12 Blood Pressure Pulse Oximetry Oxygen Delivery Fraction of Inspired Oxygen 30 07/03/25 04:15 07/03/25 04:15 07/03/25 04:30 Temperature 35.3 C L 35.3 C L Pulse Rate 47 L Respiratory Rate 12 Blood Pressure Pulse Oximetry Oxygen Delivery Fraction of Inspired Oxygen 07/03/25 04:45 07/03/25 05:00 07/03/25 05:12 Temperature 35.3 C L 35.3 C L Pulse Rate 49 L Respiratory Rate Blood Pressure Pulse Oximetry 100 Oxygen Delivery Mechanical Ventilation Fraction of Inspired Oxygen 30 07/03/25 05:15 07/03/25 05:30 07/03/25 05:45 Temperature 35.4 C L 35.4 C L 35.5 C L Pulse Rate Respiratory Rate Blood Pressure Pulse Oximetry Oxygen Delivery Fraction of Inspired Oxygen 07/03/25 06:00 07/03/25 06:00 07/03/25 06:00 Temperature Pulse Rate 51 L 51 L 51 L Respiratory Rate 12 12 Blood Pressure 113/41 L Pulse Oximetry Oxygen Delivery Fraction of Inspired Oxygen 07/03/25 06:00 07/03/25 06:00 07/03/25 06:00 Temperature 35.6 C L 35.6 C L Pulse Rate 51 L 51 L Respiratory Rate 12 Blood Pressure 113/41 L Pulse Oximetry 100 Oxygen Delivery Fraction of Inspired Oxygen 07/03/25 06:15 07/03/25 06:30 07/03/25 06:45 Temperature 35.7 C L 35.8 C L 35.9 C L Pulse Rate Respiratory Rate Blood Pressure Pulse Oximetry Oxygen Delivery Fraction of Inspired Oxygen 07/03/25 07:00 07/03/25 07:49 07/03/25 07:52 Temperature 35.9 C L Pulse Rate 57 L 57 L Respiratory Rate 12 12 Blood Pressure Pulse Oximetry 100 Oxygen Delivery Mechanical Ventilation Fraction of Inspired Oxygen 30 07/03/25 07:52 07/03/25 07:52 07/03/25 08:05 Temperature Pulse Rate 57 L 61 Respiratory Rate Blood Pressure Pulse Oximetry 100 Oxygen Delivery Mechanical Ventilation Fraction of Inspired Oxygen 30 30 Intake/Output Intake/Output: Intake & Output 06/30/25 07/01/25 07/02/25 07/03/25 23:59 23:59 23:59 23:59 Intake Total 1582.0 1198.9 1063.6 327.8 Output Total 585 432 250 Balance 1582.0 613.9 631.6 77.8 Meds/Results Medications: Active Medications Generic Name Dose Route Start Last Admin Trade Name Freq PRN Reason Stop Dose Admin Acetaminophen 650 mg 06/29/25 12:42 Acetaminophen 325 Mg Tablet PO Q6H PRN Mild Pain (1-3) or Fever Aspirin 325 mg 06/30/25 09:00 06/30/25 10:04 Aspirin 325 Mg Enteric Tablet PO 325 mg QAM SUPA Administration Dextrose 12.5 gm 06/29/25 12:50 Dextrose 50% 25 Gm/50 Ml Syringe IV PUSH PRN PRN Hypoglycemia Protocol Flecainide Acetate 100 mg 06/29/25 21:00 06/30/25 21:30 Flecainide Acetate 100 Mg Tablet PO Not Given Q12H SUPA Glucagon 1 mg 06/29/25 12:50 Glucagon For Inj 1 Mg Vial IM PRN PRN Hypoglycemia Protocol Glucagon 1 mg 07/01/25 02:06 Glucagon For Inj 1 Mg Vial IM PRN PRN Hypoglycemia Protocol Glucose 15 gm 06/29/25 12:50 Glucose Oral Gel 15 Gm Of Glucse In 37.5 Gm Tube PO PRN PRN Hypoglycemia Protocol Heparin Sodium (Porcine) 5,000 units 07/01/25 14:00 07/03/25 06:14 Heparin Sodium 5,000 Units/Ml Vial SUB-Q 5,000 units Q8HR SUPA Administration Albumin Human 50 mls @ 999 mls/hr 06/29/25 11:31 Albutein IVPB 07/29/25 11:30 Q10M PRN HYPOTENSION Metronidazole 500 mg in 100 mls @ 100 mls/hr 06/29/25 18:00 07/03/25 04:00 Flagyl 500 Mg/Iso Soln 100 Ml IVPB Infused Q8H SUPA Infusion Dextrose 1,000 mls @ 100 mls/hr 06/29/25 12:50 Dextrose 5% 1,000 Ml IVPB PRN PRN Hypoglycemia Protocol Levetiracetam 500 mg in 100 mls @ 400 mls/hr 07/01/25 09:00 07/02/25 20:40 Keppra Iv IVPB Infused Q12HR SUPA Infusion Cefepime HCl 1 gm/ Sodium 50 mls @ 100 mls/hr 07/01/25 14:00 07/02/25 15:10 Chloride IVPB Infused Q24H SUPA Infusion Valproate Sodium 1,000 mg/ 60 mls @ 52.5 mls/hr 07/01/25 17:00 07/03/25 01:15 Dextrose IVPB Infused Q8H SUPA Infusion Propofol 100 mls @ 0 mls/hr 07/01/25 12:35 07/03/25 07:49 Diprivan IV CONT 0 mcg/kg/min .Q0M SUPA 0 mls/hr Titration Protocol 0 MCG/KG/MIN Norepinephrine Bitartrate 8 mg in 250 mls @ 0 mls/hr 07/01/25 12:35 07/03/25 06:00 Levophed 8 Mg/D5w 250 Ml IV CONT 0 mcg/min .Q0M SUPA 0 mls/hr Titration Protocol Insulin Aspart 3 - 6 units 07/01/25 06:00 07/03/25 06:14 Insulin Aspart (*Bkc) 100 Units/Ml SUB-Q Not Given Q6HR SUPA Protocol Lidocaine/Prilocaine 1 each 06/29/25 11:33 06/29/25 12:57 Lidocaine/Prilocaine Cream 2.5-2.5% Tube TOPICAL 1 each WITH DIALYSIS PRN Administration for dialysis Protocol Multi-Ingred Cream/Lotion/Oil/Oint 1 applic 07/01/25 11:00 07/02/25 20:17 Mineral Oil/White Petrolatum Ointment EACH EYE 1 applic Q12HR SUPA Administration Ondansetron HCl 4 mg 06/29/25 10:42 06/30/25 17:05 Ondansetron Inj 4 Mg/2 Ml Vial IV PUSH 4 mg Q4H PRN Administration Nausea Pantoprazole Sodium 40 mg 07/02/25 09:00 07/02/25 09:19 Pantoprazole Sodium Iv 40 Mg Vial IV PUSH 40 mg QAM SUPA Administration Perflutren Lipid Microsphere 0 ml 07/01/25 11:25 Perflutren Lipid Microspheres 1.5 Ml Vial Diluted To 10 Ml Total Volume IV PUSH 07/04/25 11:25 ONCE PRN adequate visualization Protocol Polyethylene Glycol 17 gm 06/29/25 12:42 Polyethylene Glycol 3350 17 Gm Powd.Pack PO QAM PRN Constipation Sodium Chloride 10 ml 07/01/25 14:00 07/03/25 06:14 Central Line Flush IV PUSH 10 ml Q8HR SUPA Administration Sodium Chloride 20 ml 07/01/25 09:09 Central Line Flush IV PUSH PRN PRN after blood draws Tamsulosin HCl 0.4 mg 06/30/25 09:00 06/30/25 10:06 Tamsulosin Hcl 0.4 Mg Capsule PO 0.4 mg DAILY SUPA Administration Radiology Results: ITS Impressions Abdomen/Pelvis CT 06/30/25 11:54 IMPRESSION: 1. No abscess identified. No free intraperitoneal air identified. 2. Small amount of new nonspecific amount of fat stranding and fluid in the abdomen and pelvis. 3. New small right-sided pleural effusion. 4. New tiny left-sided pleural effusion. 5.There are two new moderate-sized bandlike opacities in the right lower lung and a new small bandlike opacity in the left lower lung. Differential includes atelectasis or pneumonia. Correlate clinically. Recommend follow-up to resolution. 6. Redemonstration of the mild left-sided hydronephrosis and mild left-sided hydroureter. No CT evidence for renal, ureteral or bladder calculi. 7. Slight improvement in the concentric thickening of the ramey of the bladder. Correlate clinically. 8. Redemonstration of the short segment focal thickening of the ramey of the distal descending colon and proximal sigmoid colon. Differential includes incomplete bowel wall distention, diverticulitis or mass. Chest CTA 06/30/25 22:43 IMPRESSION: No pulmonary embolus. No thoracic aortic dissection or dilatation. Large bilateral pleural effusions, right greater than left Abdomen X-Ray 07/01/25 07:07 IMPRESSION: 1. Orogastric tube in stomach. 2. Small right pleural effusion with atelectasis and/or pneumonia in the bilateral lower lung zones. Head CT 07/01/25 08:10 IMPRESSION: 1. 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 No acute intracranial process. Abdomen Ultrasound 07/01/25 13:28 IMPRESSION: 1. Common bile duct diameter of 7 mm at the upper limits of normal for age with no evident cholelithiasis, gallbladder dilation or intrahepatic biliary ductal dilation. 2. Right pleural effusion. Chest X-Ray 07/03/25 08:28 IMPRESSION: 1. Likely tiny left apical pneumothorax and left chest wall subcutaneous gas. Potential sequela of reported recent cardiac arrest. Correlate for associated CPR with chest compressions which could account for the pneumothorax. Findings were discussed with Araseli Payan, the nurse caring for the patient, at 8:40 AM. 2. Decreasing now small to moderate right and very small left pleural effusions with associated bibasilar atelectasis and/or pneumonia. Labs Labs: Laboratory Results - last 24 hr 07/02/25 07/02/25 07/02/25 10:02 11:02 11:24 WBC RBC Hgb Hct MCV MCH MCHC RDW Plt Count MPV Immature Gran % (Auto) Neut % (Auto) Lymph % (Auto) [place] % (Auto) Eos % (Auto) Baso % (Auto) Lymph # (Auto) [place] # (Auto) Eos # (Auto) Baso # (Auto) Abs Immat Gran (auto) Absolute Neuts (auto) Absolute Nucleated RBC Nucleated RBC % % Immature Plt Fraction PT INR APTT Puncture Site Artline ABG pH 7.508 H* ABG pCO2 26.9 L ABG pO2 101.2 H ABG PO2/FiO2 Ratio 2.53 ABG HCO3 20.9 L ABG O2 Saturation 98.2 ABG O2 Content 9.2 L ABG Base Excess -1.9 A-a Gradient 153.1 Oxyhemoglobin 95.2 Carboxyhemoglobin 1.7 Methemoglobin 0.3 Reduced Hemoglobin 2.8 Total Hemoglobin 6.7 L* O2 Delivery Device Ventilator O2 Liters/Min Not Reportable Minute Volume Not Reportable Vent Rate 12 Vent Mode Cmv FiO2 40 Tidal Volume 400 PEEP 8 Peak Inspir Pressure Not Reportable Pressure Support Not Reportable Sodium Potassium Chloride Carbon Dioxide Anion Gap BUN Creatinine Estim Creat Clear Calc Estimated GFR Glucose POC Capillary Glucose 106 H 108 H Lactic Acid Calcium Phosphorus Magnesium Total Bilirubin AST ALT Alkaline Phosphatase Ammonia Total Creatine Kinase Total Protein Albumin Lipase [facility] 07/02/25 07/02/25 07/02/25 11:46 12:10 13:11 WBC 7.8 RBC 2.36 L Hgb 7.6 L Hct 22.5 L MCV 95.3 MCH 32.2 MCHC 33.8 RDW 14.5 Plt Count 102 L MPV 9.8 Immature Gran % (Auto) Neut % (Auto) Lymph % (Auto) [place] % (Auto) Eos % (Auto) Baso % (Auto) Lymph # (Auto) [place] # (Auto) Eos # (Auto) Baso # (Auto) Abs Immat Gran (auto) Absolute Neuts (auto) Absolute Nucleated RBC Nucleated RBC % % Immature Plt Fraction 2.6 PT 18.5 H INR 1.5 APTT 57.9 H Puncture Site ABG pH ABG pCO2 ABG pO2 ABG PO2/FiO2 Ratio ABG HCO3 ABG O2 Saturation ABG O2 Content ABG Base Excess A-a Gradient Oxyhemoglobin Carboxyhemoglobin Methemoglobin Reduced Hemoglobin Total Hemoglobin O2 Delivery Device O2 Liters/Min Minute Volume Vent Rate Vent Mode FiO2 Tidal Volume PEEP Peak Inspir Pressure Pressure Support Sodium 134 L Potassium 3.3 L Chloride 99 Carbon Dioxide 24 Anion Gap 11 BUN 57 H Creatinine 6.03 H Estim Creat Clear Calc 10 Estimated GFR 9 L Glucose 102 POC Capillary Glucose 103 102 Lactic Acid Calcium 7.4 L Phosphorus 4.7 H Magnesium Total Bilirubin AST ALT Alkaline Phosphatase Ammonia Total Creatine Kinase 72 Total Protein Albumin Lipase [facility] 07/02/25 07/02/25 07/02/25 15:03 17:59 18:00 WBC RBC Hgb Hct MCV MCH MCHC RDW Plt Count MPV Immature Gran % (Auto) Neut % (Auto) Lymph % (Auto) [place] % (Auto) Eos % (Auto) Baso % (Auto) Lymph # (Auto) [place] # (Auto) Eos # (Auto) Baso # (Auto) Abs Immat Gran (auto) Absolute Neuts (auto) Absolute Nucleated RBC Nucleated RBC % % Immature Plt Fraction PT INR APTT Puncture Site ABG pH ABG pCO2 ABG pO2 ABG PO2/FiO2 Ratio ABG HCO3 ABG O2 Saturation ABG O2 Content ABG Base Excess A-a Gradient Oxyhemoglobin Carboxyhemoglobin Methemoglobin Reduced Hemoglobin Total Hemoglobin O2 Delivery Device O2 Liters/Min Minute Volume Vent Rate Vent Mode FiO2 Tidal Volume PEEP Peak Inspir Pressure Pressure Support Sodium Potassium Chloride Carbon Dioxide Anion Gap BUN Creatinine Estim Creat Clear Calc Estimated GFR Glucose POC Capillary Glucose 96 96 Lactic Acid Calcium Phosphorus Magnesium Total Bilirubin AST ALT Alkaline Phosphatase Ammonia Total Creatine Kinase 60 Total Protein Albumin Lipase TSH 07/02/25 07/03/25 07/03/25 23:59 04:12 04:32 WBC 8.1 RBC 2.43 L Hgb 7.7 L Hct 23.0 L MCV 94.7 MCH 31.7 MCHC 33.5 RDW 14.5 Plt Count 105 L MPV 9.6 Immature Gran % (Auto) 0.1 Neut % (Auto) 44.3 L Lymph % (Auto) 49.0 H [place] % (Auto) 3.2 Eos % (Auto) 2.7 Baso % (Auto) 0.7 Lymph # (Auto) 3.97 H [place] # (Auto) 0.3 Eos # (Auto) 0.2 Baso # (Auto) 0.1 Abs Immat Gran (auto) 0.01 Absolute Neuts (auto) 3.6 Absolute Nucleated RBC 0.000 Nucleated RBC % 0.0 % Immature Plt Fraction 2.2 PT 17.3 H INR 1.4 APTT 63.2 H Puncture Site Artline ABG pH 7.471 H ABG pCO2 27.8 L ABG pO2 98.9 ABG PO2/FiO2 Ratio 3.30 ABG HCO3 19.8 L ABG O2 Saturation 97.9 ABG O2 Content 11.3 L ABG Base Excess -3.2 A-a Gradient 82.3 Oxyhemoglobin 95.4 Carboxyhemoglobin 1.3 Methemoglobin 0.3 Reduced Hemoglobin 3.0 Total Hemoglobin 8.3 L O2 Delivery Device Ventilator O2 Liters/Min Not Reportable Minute Volume Not Reportable Vent Rate 12 Vent Mode Cmv FiO2 30 Tidal Volume 400 PEEP 8 Peak Inspir Pressure Not Reportable Pressure Support Not Reportable Sodium 133 L Potassium 3.4 Chloride 99 Carbon Dioxide 23 Anion Gap 11 BUN 62 H Creatinine 7.04 H Estim Creat Clear Calc 9 Estimated GFR 8 L Glucose 81 POC Capillary Glucose 82 Lactic Acid 0.9 Calcium 7.3 L Phosphorus 5.6 H Magnesium 2.0 Total Bilirubin 0.3 AST 106 H ALT 188 H Alkaline Phosphatase 67 Ammonia < 9 L Total Creatine Kinase 55 Total Protein 5.0 L Albumin 2.5 L Lipase 26 TSH 0.322 L Quality VTE Prophylaxis VTE prophylaxis: pharmacologic ordered
[2025-07-03 09:33] LABS: Triglycerides 286 mg/dL (<150)
[2025-07-03] MEDS: PERFLUTREN LIPID MICROSPHERES 1.5 ML VIAL DILUTED TO 10 ML TOTAL VOLUME IV PUSH (09:45)
[2025-07-03 09:53] LABS: Arterial Blood Gas Tidal Volume 450 ml; Arterial Blood Gas Ventilator rate 18 /MIN
[2025-07-03] MEDS: levETIRAcetam 500MG/NACL 100ML 500 MG/100 ML BAG 400 MG IVPB (09:54)
[2025-07-03] MEDS: POTASSIUM CHLORIDE 20 MEQ PACKET (FOR LIQUID) 40 MEQ FEED TUBE (09:54)
[2025-07-03 09:55] LABS: Arterial Blood Gas Tidal Volume 450 ml; Arterial Blood Gas Ventilator rate 18 /MIN
[2025-07-03] MEDS: PANTOPRAZOLE SODIUM IV 40 MG VIAL IV PUSH (09:56)
[2025-07-03 10:05] LABS: Arterial Blood Gas Ventilator rate 16 /MIN
[2025-07-03] MEDS: MINERAL OIL/WHITE PETROLATUM OINTMENT 1 APPLIC EACH EYE ×2 (10:05→19:58)
[2025-07-03 10:06] LABS: Arterial Blood Gas Tidal Volume 420 ml
--- NOTE | 2025-07-03 11:41 | IVDEFINITY ---
Prior to administration of IV Definity the patient was educated on the risks and benefits of the imaging enhancing agent including potential adverse side effects. The patient verbalized understanding. Allergies were verified. No exclusion criteria were identified and at least one of the following inclusion criteria were met: 1) physician request, 2) patient technically difficult to image (per the [place] [employer] guidelines of two or more segments not discernable within the apical view), or 3) questionable left ventricular function. ?
[2025-07-03] MEDS: CEFEPIME 1 GM in SODIUM CHLORIDE 0.9% IV 50 ML 100 ML IVPB (13:24)
--- NOTE | 2025-07-03 16:21 | P.PNNP_ITS ---
Progress Note: A&P Assessment and Plan (1) End stage renal disease: Code(s): N18.6 - End stage renal disease Status: Chronic Assessment and Plan: * normally does home hemodialysis 4x/week * HD today * follow electrolytes, volume status, and clearance (2) Cardiac arrest: Code(s): I46.9 - Cardiac arrest, cause unspecified Status: Acute Assessment and Plan: * as noted on 06/29 * ACLS protocol with ROSC after 18 minutes * unclear down time prior to initiation of ACLS * etiology remains unclear -- aspiration, arrhythmia, hypoxia, other(?) * s/p TTM and rewarmed * continue supportive therapy (3) Acute respiratory failure with hypoxia: Code(s): J96.01 - Acute respiratory failure with hypoxia Status: Acute Assessment and Plan: * secondary to cardiac arrest * imaging noted with large pleural effusions * remains on ventilator support * off sedation at this time - (4) Diverticulitis: Code(s): K57.92 - Diverticulitis of intestine, part unspecified, without perforation or abscess without bleeding Status: Acute Assessment and Plan: * as suspected from recent CT of A/P: * short segment focal thickening of the ramey of the distal descending colon and proximal sigmoid colon. Differential includes incomplete bowel wall distention, diverticulitis or mass...recommend follow-up to resolution. 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, not intractable, without status epilepticus Status: Acute Assessment and Plan: * noted following cardiac arrest * no previous history * present even when on versed * minimal improvement with Ativan * required use of propofol * on IV keppra and valproic acid * Neurology following * follow-up on EEG (6) Anoxic brain injury: Code(s): G93.1 - Anoxic brain damage, not elsewhere classified Status: Acute Assessment and Plan: * suspected based on evidence to date * prolonged downtime prior to ROSC * myoclonic seizures (despite no history) * remains unresponsive off all sedation * head CT without any acute pathology * follow-up on EEG (7) Anemia: Code(s): D64.9 - Anemia, unspecified Status: Acute Assessment and Plan: * due to ESRD and acute illness * getting Epogen with HD * follow trend of H/H (8) PAF (paroxysmal atrial fibrillation): Code(s): I48.0 - Paroxysmal atrial fibrillation Status: Chronic Assessment and Plan: * continue rate control strategy * holding anticoagulation (9) HTN (hypertension): Qualifiers: Hypertension type: unspecified Qualified Code(s): I10 - Essential (primary) hypertension Code(s): I10 - Essential (primary) hypertension Status: Chronic Assessment and Plan: * relatively stable * follow trend of hemodynamics (10) Diabetes: Qualifiers: Diabetes mellitus type: type 2 Diabetes mellitus fci insulin use: without fci use Diabetes mellitus complication status: with hyperglycemia Qualified Code(s): E11.65 - Type 2 diabetes mellitus with hyperglycemia Code(s): E11.9 - Type 2 diabetes mellitus without complications Status: Chronic Assessment and Plan: * follow accu-checks * appears diet control as an outpatient * glycemic control per hospitalist/meal packer Will continue to follow. L Subjective Date/time seen: 07/03/25 16:21 Interval history: Follow-up for end stage renal disease on hemodialysis. Chart reviewed since last seen -- seen earlier today and currently while on dialysis treatment (seen on HD at 4:10pm); intubated and on mechanial ventilatino; off all sedation but remains unresponsive; hemodynamically stable at this time. Exam 2 Narrative: General: elderly but WD/WN male intubated and on mechanical ventilation Heart: normal S1 and S2; no rub Lungs: decreased at bases Abdomen: soft, nontender, absent bowel sounds Extremities: no cyanosis or clubbing; 1+ edema; s/p right BKA Skin: warm and intact Objective Data Vital Signs Vital Signs: Vital Signs Temp Pulse Resp BP Pulse Ox O2 Del Method FiO2 07/03/25 16:00 99.9 F H 68 14 125/48 L 98 07/03/25 16:00 30 07/03/25 16:00 68 07/03/25 16:00 66 12 100 Mechanical Ventilation 30 07/03/25 16:00 66 122/47 L 07/03/25 15:42 63 138/48 L 07/03/25 14:00 99.9 F H 63 12 117/42 L 100 07/03/25 14:00 63 08/18/25 13:34 62 100 Mechanical Ventilation 30 07/03/25 12:00 62 119/44 L 07/03/25 12:00 99.9 F H 62 14 119/44 L 100 07/03/25 12:00 30 07/03/25 12:00 62 07/03/25 12:00 63 14 100 Mechanical Ventilation 30 07/03/25 10:56 63 100 Mechanical Ventilation 30 07/03/25 10:00 64 120/44 L 07/03/25 10:00 100 F H 64 14 120/44 L 100 07/03/25 10:00 64 07/03/25 08:05 61 100 Mechanical Ventilation 30 07/03/25 08:00 59 L 120/43 L 07/03/25 08:00 98.1 F 59 L 14 120/43 L 100 07/03/25 07:52 30 07/03/25 07:52 57 L 07/03/25 07:52 57 L 12 100 Mechanical Ventilation 07/03/25 07:49 57 L 12 07/03/25 07:00 96.7 F L 07/03/25 06:45 96.7 F L 07/03/25 06:30 96.5 F L 07/03/25 06:15 96.3 F L 07/03/25 06:00 96.1 F L 07/03/25 06:00 51 L 07/03/25 06:00 96.1 F L 51 L 12 113/41 L 100 07/03/25 06:00 51 L 113/41 L 07/03/25 06:00 51 L 12 07/03/25 06:00 51 L 12 07/03/25 05:45 95.9 F L 07/03/25 05:30 95.8 F L 07/03/25 05:15 95.7 F L 07/03/25 05:12 49 L 100 Mechanical Ventilation 07/03/25 05:00 95.6 F L 07/03/25 04:45 95.6 F L 07/03/25 04:30 95.6 F L 07/03/25 04:15 95.6 F L 07/03/25 04:15 47 L 12 07/03/25 04:15 47 L 12 07/03/25 04:00 95.7 F L 07/03/25 04:00 30 07/03/25 04:00 47 L 12 100 Mechanical Ventilation 30 07/03/25 04:00 47 L 07/03/25 04:00 47 L 105/39 L 07/03/25 04:00 47 L 12 07/03/25 04:00 47 L 12 07/03/25 04:00 95.7 F L 47 L 12 105/69 100 07/03/25 03:45 95.7 F L 07/03/25 03:30 95.7 F L 07/03/25 02:34 49 L 100 Mechanical Ventilation 30 07/03/25 02:00 49 L 115/41 L 07/03/25 02:00 49 L 12 07/03/25 02:00 49 L 12 07/03/25 02:00 95.9 F L 49 L 12 115/41 L 100 07/03/25 02:00 49 L 07/03/25 00:30 49 L 12 07/03/25 00:00 49 L 07/03/25 00:00 49 L 12 100 Mechanical Ventilation 07/03/25 00:00 30 07/03/25 00:00 96.3 F L 49 L 12 117/41 L 100 07/03/25 00:00 49 L 112/40 L 07/03/25 00:00 49 L 12 07/03/25 00:00 49 L 12 07/02/25 23:35 49 L 100 Mechanical Ventilation 07/02/25 22:00 51 L 116/41 L 07/02/25 22:00 51 L 12 07/02/25 22:00 51 L 12 07/02/25 22:00 96.9 F L 51 L 12 116/41 L 100 07/02/25 22:00 51 L 07/02/25 20:10 50 L 100 Mechanical Ventilation 30 07/02/25 20:00 51 L 12 100 Mechanical Ventilation 07/02/25 20:00 30 07/02/25 20:00 51 L 07/02/25 20:00 97.7 F 51 L 12 112/45 L 100 07/02/25 20:00 51 L 112/44 L 07/02/25 20:00 51 L 12 07/02/25 20:00 51 L 12 07/02/25 18:30 51 L 12 07/02/25 18:00 54 L 118/39 L 07/02/25 18:00 54 L 12 07/02/25 18:00 54 L 12 07/02/25 18:00 54 L 07/02/25 18:00 98.1 F 54 L 12 118/39 L 95 07/02/25 17:38 52 L 12 07/02/25 17:30 53 L 12 07/02/25 17:01 52 L 12 07/02/25 17:00 52 L 12 07/02/25 16:47 53 L 100 Mechanical Ventilation 30 Intake/Output Intake/Output: Intake & Output 06/30/25 07/01/25 07/02/25 07/03/25 23:59 23:59 23:59 23:59 Intake Total 1582.0 1198.9 1063.6 327.8 Output Total 585 432 250 Balance 1582.0 613.9 631.6 77.8 Meds/Results Medications: Active Medications Generic Name Dose Route Start Last Admin Trade Name Freq PRN Reason Stop Dose Admin Acetaminophen 650 mg 06/29/25 12:42 Acetaminophen 325 Mg Tablet PO Q6H PRN Mild Pain (1-3) or Fever Aspirin 325 mg 06/30/25 09:00 06/30/25 10:04 Aspirin 325 Mg Enteric Tablet PO 325 mg QAM SUPA Administration Dextrose 12.5 gm 06/29/25 12:50 Dextrose 50% 25 Gm/50 Ml Syringe IV PUSH PRN PRN Hypoglycemia Protocol Epoetin Christian-epbx 10,000 units 07/03/25 21:00 Epoetin Christian-Epbx 10,000 Units/Ml Vial IV PUSH 07/03/25 21:01 ONCE ONE Flecainide Acetate 100 mg 06/29/25 21:00 06/30/25 21:30 Flecainide Acetate 100 Mg Tablet PO Not Given Q12H [facility] Glucagon 1 mg 06/29/25 12:50 Glucagon For Inj 1 Mg Vial IM PRN PRN Hypoglycemia Protocol Glucagon 1 mg 07/01/25 02:06 Glucagon For Inj 1 Mg Vial IM PRN PRN Hypoglycemia Protocol Glucose 15 gm 06/29/25 12:50 Glucose Oral Gel 15 Gm Of Glucse In 37.5 Gm Tube PO PRN PRN Hypoglycemia Protocol Heparin Sodium (Porcine) 5,000 units 07/01/25 14:00 07/03/25 13:25 Heparin Sodium 5,000 Units/Ml Vial SUB-Q 5,000 units Q8HR SUPA Administration Albumin Human 50 mls @ 999 mls/hr 06/29/25 11:31 Albutein IVPB 07/29/25 11:30 Q10M PRN HYPOTENSION Metronidazole 500 mg in 100 mls @ 100 mls/hr 06/29/25 18:00 07/03/25 09:55 Flagyl 500 Mg/Iso Soln 100 Ml IVPB 100 mls/hr Q8H SUPA Administration Dextrose 1,000 mls @ 100 mls/hr 06/29/25 12:50 Dextrose 5% 1,000 Ml IVPB PRN PRN Hypoglycemia Protocol Levetiracetam 500 mg in 100 mls @ 400 mls/hr 07/01/25 09:00 07/03/25 09:54 Keppra Iv IVPB 400 mls/hr Q12HR SUPA Administration Cefepime HCl 1 gm/ Sodium 50 mls @ 100 mls/hr 07/01/25 14:00 07/03/25 13:24 Chloride IVPB 100 mls/hr Q24H SUPA Administration Valproate Sodium 1,000 mg/ 60 mls @ 52.5 mls/hr 07/01/25 17:00 07/03/25 09:55 Dextrose IVPB 52.5 mls/hr Q8H SUPA Administration Propofol 100 mls @ 0 mls/hr 07/01/25 12:35 07/03/25 07:49 Diprivan IV CONT 0 mcg/kg/min .Q0M SUPA 0 mls/hr Titration Protocol 0 MCG/KG/MIN Norepinephrine Bitartrate 8 mg in 250 mls @ 0 mls/hr 07/01/25 12:35 07/03/25 12:00 Levophed 8 Mg/D5w 250 Ml IV CONT 0 mcg/min .Q0M SUPA 0 mls/hr Titration Protocol Insulin Aspart 3 - 6 units 07/01/25 06:00 07/03/25 11:48 Insulin Aspart (*Bkc) 100 Units/Ml SUB-Q Not Given Q6HR SUPA Protocol Lidocaine/Prilocaine 1 each 06/29/25 11:33 06/29/25 12:57 Lidocaine/Prilocaine Cream 2.5-2.5% Tube TOPICAL 1 each WITH DIALYSIS PRN Administration for dialysis Protocol Multi-Ingred Cream/Lotion/Oil/Oint 1 applic 07/01/25 11:00 07/03/25 10:05 Mineral Oil/White Petrolatum Ointment EACH EYE 1 applic Q12HR SUPA Administration Ondansetron HCl 4 mg 06/29/25 10:42 06/30/25 17:05 Ondansetron Inj 4 Mg/2 Ml Vial IV PUSH 4 mg Q4H PRN Administration Nausea Pantoprazole Sodium 40 mg 07/02/25 09:00 07/03/25 09:56 Pantoprazole Sodium Iv 40 Mg Vial IV PUSH 40 mg QAM SUPA Administration Polyethylene Glycol 17 gm 06/29/25 12:42 Polyethylene Glycol 3350 17 Gm Powd.Pack PO QAM PRN Constipation Sodium Chloride 10 ml 07/01/25 14:00 07/03/25 13:25 Central Line Flush IV PUSH 10 ml Q8HR SUPA Administration Sodium Chloride 20 ml 07/01/25 09:09 Central Line Flush IV PUSH PRN PRN after blood draws Tamsulosin HCl 0.4 mg 06/30/25 09:00 06/30/25 10:06 Tamsulosin Hcl 0.4 Mg Capsule PO 0.4 mg DAILY SUPA Administration Radiology Results: ITS Impressions Abdomen/Pelvis CT 06/30/25 11:54 IMPRESSION: 1. No abscess identified. No free intraperitoneal air identified. 2. Small amount of new nonspecific amount of fat stranding and fluid in the abdomen and pelvis. 3. New small right-sided pleural effusion. 4. New tiny left-sided pleural effusion. 5.There are two new moderate-sized bandlike opacities in the right lower lung and a new small bandlike opacity in the left lower lung. Differential includes atelectasis or pneumonia. Correlate clinically. Recommend follow-up to resolution. 6. Redemonstration of the mild left-sided hydronephrosis and mild left-sided hydroureter. No CT evidence for renal, ureteral or bladder calculi. 7. Slight improvement in the concentric thickening of the ramey of the bladder. Correlate clinically. 8. Redemonstration of the short segment focal thickening of the ramey of the distal descending colon and proximal sigmoid colon. Differential includes incomplete bowel wall distention, diverticulitis or mass. Chest CTA 06/30/25 22:43 IMPRESSION: No pulmonary embolus. No thoracic aortic dissection or dilatation. Large bilateral pleural effusions, right greater than left Abdomen X-Ray 07/01/25 07:07 IMPRESSION: 1. Orogastric tube in stomach. 2. Small right pleural effusion with atelectasis and/or pneumonia in the bilateral lower lung zones. Head CT 07/01/25 08:10 IMPRESSION: 1. 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 No acute intracranial process. Abdomen Ultrasound 07/01/25 13:28 IMPRESSION: 1. Common bile duct diameter of 7 mm at the upper limits of normal for age with no evident cholelithiasis, gallbladder dilation or intrahepatic biliary ductal dilation. 2. Right pleural effusion. Chest X-Ray 07/03/25 08:28 IMPRESSION: 1. Likely tiny left apical pneumothorax and left chest wall subcutaneous gas. Potential sequela of reported recent cardiac arrest. Correlate for associated CPR with chest compressions which could account for the pneumothorax. Findings were discussed with Araseli Payan, the nurse caring for the patient, at 8:40 AM. 2. Decreasing now small to moderate right and very small left pleural effusions with associated bibasilar atelectasis and/or pneumonia. Labs Labs: Laboratory Tests 07/03/25 04:12 07/03/25 04:12 Lactic Acid 0.9 Calcium 7.3 L Phosphorus 5.6 H Magnesium 2.0 Total Bilirubin 0.3 AST 106 H ALT 188 H Alkaline Phosphatase 67 Ammonia < 9 L Total Creatine Kinase 55 Total Protein 5.0 L Albumin 2.5 L Triglycerides 286 H Lipase 26 TSH 0.322 L
[2025-07-03] MEDS: EPOETIN ALFA-EPBX 10,000 UNITS/ML VIAL 10000 UNITS IV PUSH (17:18)
--- NOTE | 2025-07-03 18:07 | WPDNEUROLOGY ---
Neurology EEG Report General Information Date of Study: 07/03/25 TEST Electroencephalogram DIAGNOSIS seizure disorder CONDITION OF RECORDING patient is intubated and in ICU. Presented with multiple seizures EEG NUMBER [id number] CLINICAL HISTORY history of seizure disorder. Patient also cardiopulmonary arrest EEG DESCRIPTION the background activity consists of periodic activity. Sharp wave transients were seen throughout the recording at a rate of approximately 1 hertz. these appear over both hemispheres.The background remains unchanged throughout the recording. Hyperventilation or photic stimulation were not performed. IMPRESSION EEG findings are suggestive of most likely electrographic seizure activity. Background activity remains unchanged throughout the recording.
[2025-07-03] MEDS: levETIRAcetam 1000MG/NACL100ML 1,000 MG/100 ML BAG 400 MG IVPB (19:57)
[2025-07-04] VITALS (12 sets, daily range): BP systolic 119–156; BP diastolic 42–62; PULSE 55–69; RESP 12–13; TEMP 35.8–37.4; O2SAT 97–100
[2025-07-04] MEDS: VALPROATE SODIUM INJ 1,000 MG in DEXTROSE 5% IN WATER 50 ML 52.5 MG IVPB ×2 (00:12→08:03)
[2025-07-04] MEDS: metroNIDAZOLE 500 MG/ISO 100ML 500 MG/100 ML BAG 100 MG IVPB ×2 (01:25→10:01)
[2025-07-04] MEDS: levETIRAcetam 1000MG/NACL100ML 1,000 MG/100 ML BAG 400 MG IVPB ×2 (03:45→10:00)
[2025-07-04 04:57] LABS: Alanine Aminotransferase 167 U/L (6-50); Albumin Level 2.8 g/dL (3.5-5.1); Alkaline Phosphatase 74 U/L (38-126); Anion Gap 8 mmol/L (4-12); Aspartate Amino Transferase 98 U/L (17-59); Bilirubin,Total 0.5 mg/dL (0.2-1.3); Blood Urea Nitrogen 34 mg/dL (9-20); Calcium 8.4 mg/dL (8.4-10.2); Carbon Dioxide 24 mmol/L (22-30); Chloride 102 mmol/L (98-107); Estimated CRCL calculation 15 ml/min; Estimated Glomerular Filt Rate 13; Glucose 85 mg/dL (65-110); Hematocrit 26.5 % (42.0-52.0); Hemoglobin 8.7 g/dL (14.0-18.0); Immature Granulocyte Percent A 0.3 % (0-0.5); Lymphocytes Absolute Auto 4.75 K/mm3 (0.9-3.2); Magnesium 2.0 mg/dL (1.6-2.3); Mean Corpuscular HGB Conc 32.8 g/dl (32-36); Mean Corpuscular Hemoglobin 32.2 pg (26-34); Mean Corpuscular Volume 98.1 fl (80-100); Nucleated Red Blood Cells Absolute Auto 0.030 K/mm3 (0.0-0.012); Nucleated Red Blood Cells Perc 0.3 % (0.0-0.2); Platelet Count Result 111 k/mm3 (150-375); Potassium 4.2 mmol/L (3.4-5.0); Red Blood Count 2.70 M/mm3 (4.6-6.20); Sodium 134 mmol/L (137-145); Total Protein 5.8 g/dL (6.3-8.2); White Blood Count 9.3 K/mm3 (4.5-10.0)
[2025-07-04 05:10] LABS: INR 1.3; Partial Thromboplastin Time 55.0 Seconds (22.3-36.8); Prothrombin Time 15.7 Seconds (11.1-14.7)
[2025-07-04 05:44] LABS: Fractional Inspired Oxygen 30 %
[2025-07-04 05:51] LABS: HCO3 ABG 21.5 mEq/l (22.0-26.0); Oxygen Saturation ABG 96.1 % (95.0-100.0); PCO2 ABG 34.1 mmHg (35.0-45.0); PO2 ABG 79.8 mmHg (80.0-100.0)
[2025-07-04 05:52] LABS: Carboxyhemoglobin 1.7 % THb (0-2.0); Methemoglobin ABG 0.3 %THb (0-1.5); Reduced Hemoglobin 4.6 %THb (0-5.0)
[2025-07-04 05:53] LABS: PO2 FiO2 Ratio Arterial Blood 2.66 %
[2025-07-04 05:55] LABS: Alveolar/Arterial O2 Gradient 94.0 mmHg; Oxygen Content ABG 11.3 %vol (16.0-22.0); Site Drawn ARTLINE
[2025-07-04 05:57] LABS: Arterial Blood Gas Tidal Volume 370 ml; Arterial Blood Gas Ventilator rate 12 /MIN
[2025-07-04] MEDS: CENTRAL LINE FLUSH 10 ML IV PUSH ×2 (06:17→14:39)
[2025-07-04] MEDS: PANTOPRAZOLE SODIUM IV 40 MG VIAL IV PUSH (08:04)
[2025-07-04] MEDS: MINERAL OIL/WHITE PETROLATUM OINTMENT 1 APPLIC EACH EYE (08:04)
--- NOTE | 2025-07-04 08:20 | WPDINTPN ---
Progress Note: A&P Assessment and Plan (1) Cardiac arrest: Code(s): I46.9 - Cardiac arrest, cause unspecified Status: Acute Assessment and Plan: 06/29: 8:26 p.m. to 8:44 p.m. cardiac arrest with ACLS protocol and return of spontaneous circulation -etiology unknown, could be aspiration, arrhythmia, hypoxic -prior to that patient was last seen well at shift change which is approximately 7:00 p.m. -unknown amount of down time prior to the time he was found unresponsive -patient completed TTM and now has been rewarming and suspected to have anoxic brain injury -echocardiogram reviewed and shows moderate pulmonary hypertension moderate aortic stenosis and LVH -06/30: CTA PE protocol: Negative for PE. No thoracic aortic dissection or dilatation. Large bilateral pleural effusions right greater than left (2) Acute respiratory failure with hypoxia: Code(s): J96.01 - Acute respiratory failure with hypoxia Status: Acute Assessment and Plan: Respiratory failure likely related to cardiac arrest -large bilateral pleural effusions -patient may require thoracentesis at some point once he is more stable. Will wait until neuro status assessment is more accurate -currently on CMV mode of ventilation peep of 5, 60% FiO2 with adequate O2 sats. Wean FiO2 to maintain O2 sats > 92% -chest x-ray and ABGs reviewed, ventilator adjusted to tidal volume 350 -currently off sedation -weaning will depend on improvement in neurological status (3) ESRD on hemodialysis: Code(s): N18.6 - End stage renal disease; Z99.2 - Dependence on renal dialysis Status: Acute Assessment and Plan: Patient has a history of end-stage renal disease on hemodialysis which he gets at home -nephrology following -patient was dialyzed 07/03 -monitor electrolytes and acid-base status (4) Diverticulitis: Code(s): K57.92 - Diverticulitis of intestine, part unspecified, without perforation or abscess without bleeding Status: Acute Assessment and Plan: 06/28: Patient presented the ED with abdominal pain, nausea vomiting, CT scan of the abdomen pelvis showed diverticulitis and discharged home on antibiotics. Pain worsened and he could not keep the antibiotics further medications down because of nausea and vomiting. 06/29: Patient presented back to the ED with similar complaints and was admitted to the medical floor with clear liquid diet, and IV antibiotics with ceftriaxone and metronidazole. -07/01/2025, switched ceftriaxone to cefepime and continue with metronidazole -GI following the patient 06/30: CT abdomen and pelvis IMPRESSION: 1. No abscess identified. No free intraperitoneal air identified. 2. Small amount of new nonspecific amount of fat stranding and fluid in the abdomen and pelvis. 3. New small right-sided pleural effusion. 4. New tiny left-sided pleural effusion. 5.There are two new moderate-sized bandlike opacities in the right lower lung and a new small bandlike opacity in the left lower lung. Differential includes atelectasis or pneumonia. Correlate clinically. Recommend follow-up to resolution. 6. Redemonstration of the mild left-sided hydronephrosis and mild left-sided hydroureter. No CT evidence for renal, ureteral or bladder calculi. 7. Slight improvement in the concentric thickening of the ramey of the bladder. Correlate clinically. 8. Redemonstration of the short segment focal thickening of the ramey of the distal descending colon and proximal sigmoid colon. Differential includes incomplete bowel wall distention, diverticulitis or mass. (5) HTN (hypertension): Qualifiers: Hypertension type: unspecified Qualified Code(s): I10 - Essential (primary) hypertension Code(s): I10 - Essential (primary) hypertension Status: Chronic Assessment and Plan: Essential hypertension, currently intubated, sedated, borderline blood pressure -will hold all antihypertensives at this time (6) Anemia: Code(s): D64.9 - Anemia, unspecified Status: Acute Assessment and Plan: History of anemia of chronic disease and chronic kidney disease, Hemoglobin stable -patient on Epogen per Nephrology (7) Anoxic brain injury: Code(s): G93.1 - Anoxic brain damage, not elsewhere classified Status: Acute Assessment and Plan: Suspected anoxic brain injury secondary to cardiac arrest. 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 Likely secondary to CPR the patient received many days ago. Will monitor closely. Hold on chest tube at this point if increase in size will consult surgery for chest tube insertion.. 07/[address] chest along with CT head (9) Seizure: Code(s): R56.9 - Unspecified convulsions Status: Acute Assessment and Plan: Patient developed seizures post cardiac arrest. Seizures continued despite patient being on Versed infusion patient was given Ativan 4 mg IV x2, eventually he was started on propofol which led to resolution -patient was also started on Keppra and IV valproic acid which will be continue -neurology following the patient -seizures was myoclonic jerking post cardiac arrest is an ominous sign post, likely related to anoxic brain injury, patient does not have a history of seizure -EEG was done yesterday 07/03 which showed electrographic seizure activity although patient does not have any clinical seizures. -I will discuss with Neurology regarding further adjusting his medications. 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 I answer answered all their questions. Critical Care Time Spent: 30 minutes Due to a high probability of clinically significant, life threatening deterioration, the patient required my highest level of preparedness to intervene emergently and I personally spent this critical care time directly and personally managing the patient. This critical care time included obtaining a history; examining the patient; pulse oximetry; ordering and review of studies; arranging urgent treatment with development of a management plan; evaluation of patient's response to treatment; frequent reassessment; and discussions with other providers. It was exclusive of separately billable procedures and treating other patients and teaching time. Please see Assessment and Plan section and the rest of the note for further information on patient assessment and treatment This dictation may have been done utilizing a voice recognition system. Attempts have been made to correct errors. However, there may be uncorrected grammatical, spelling, and recognitions errors present. Subjective Date/time seen: 07/04/25 Overnight events reviewed. Patient remains of sedation completely. He is unresponsive. He did had EEG and how a dialysis yesterday. He has anuric. He is on 30% FiO2 and afebrile. Interval history: Reason for consult: Cardiac arrest, acute respiratory failure secondary cardiac arrest, diverticulitis, end-stage renal disease on hemodialysis, transaminitis, seizures/myoclonic jerks Review of Systems Review of Systems: ROS unobtainable: Yes unobtainable due to endotracheal tube, unobtainable due to medical condition and unobtainable due to mental status Exam Narrative: General: Intubated and on mechanical ventilation and sedated HEENT: Right pupil dilated, very sluggish, left pupil smaller and very sluggish, sclera is clear, ETT in place Neck:? Supple Respiratory:? Coarse breath sounds bilaterally, decreased at bases, no wheezing, adequate air entry Cardiac:? S1-S2 is normal, regular rate or rhythm Abdomen:? Soft, nontender, nondistended, absent bowel sounds Extremities:? Left upper ext extremity fistula with positive thrill, right BKA, 1+ edema bilateral lower extremities, palpable pedal pulses on the left foot Neuro:? Patient is intubated, is, does not open his eyes or follow simple commands, does not withdraw to pain Skin:? No skin lesions noted Psych:? Unable to assess at this time Objective Data Vital Signs Vital Signs: Vital Signs - 24 hr 07/03/25 10:00 07/03/25 10:00 07/03/25 10:00 Temperature 37.7 C H Pulse Rate 64 64 64 Respiratory Rate 14 Blood Pressure 120/44 L 120/44 L Pulse Oximetry 100 Oxygen Delivery Fraction of Inspired Oxygen 07/03/25 10:56 07/03/25 12:00 07/03/25 12:00 Temperature Pulse Rate 63 63 62 Respiratory Rate 14 Blood Pressure Pulse Oximetry 100 100 Oxygen Delivery Mechanical Ventilation Mechanical Ventilation Fraction of Inspired Oxygen 30 30 07/03/25 12:00 07/03/25 12:00 07/03/25 12:00 Temperature 37.7 C H Pulse Rate 62 62 Respiratory Rate 14 Blood Pressure 119/44 L 119/44 L Pulse Oximetry 100 Oxygen Delivery Fraction of Inspired Oxygen 30 07/03/25 13:34 07/03/25 14:00 07/03/25 14:00 Temperature 37.7 C H Pulse Rate 62 63 63 Respiratory Rate 12 Blood Pressure 117/42 L Pulse Oximetry 100 100 Oxygen Delivery Mechanical Ventilation Fraction of Inspired Oxygen 30 07/03/25 14:00 07/03/25 15:30 07/03/25 15:42 Temperature 37.7 C H Pulse Rate 63 63 63 Respiratory Rate 12 Blood Pressure 117/42 L 119/43 L 138/48 L Pulse Oximetry 100 Oxygen Delivery Fraction of Inspired Oxygen 07/03/25 16:00 07/03/25 16:00 07/03/25 16:00 Temperature Pulse Rate 66 66 68 Respiratory Rate 12 Blood Pressure 122/47 L Pulse Oximetry 100 Oxygen Delivery Mechanical Ventilation Fraction of Inspired Oxygen 30 07/03/25 16:00 07/03/25 16:00 07/03/25 16:00 Temperature 37.7 C H Pulse Rate 68 65 Respiratory Rate 14 Blood Pressure 125/48 L 126/47 L Pulse Oximetry 98 Oxygen Delivery Fraction of Inspired Oxygen 30 07/03/25 16:15 07/03/25 16:30 07/03/25 16:45 Temperature Pulse Rate 70 73 76 Respiratory Rate Blood Pressure 124/49 L 126/49 L 123/47 L Pulse Oximetry Oxygen Delivery Fraction of Inspired Oxygen 07/03/25 16:53 07/03/25 17:00 07/03/25 17:15 Temperature Pulse Rate 76 77 79 Respiratory Rate Blood Pressure 125/47 L 124/47 L Pulse Oximetry 98 Oxygen Delivery Mechanical Ventilation Fraction of Inspired Oxygen 30 07/03/25 17:30 07/03/25 17:45 07/03/25 18:00 Temperature Pulse Rate 79 80 80 Respiratory Rate Blood Pressure 122/46 L 118/45 L 119/44 L Pulse Oximetry Oxygen Delivery Fraction of Inspired Oxygen 07/03/25 18:00 07/03/25 18:00 07/03/25 18:00 Temperature 37.4 C Pulse Rate 80 118 H 80 Respiratory Rate 14 Blood Pressure 147/79 H 120/45 L Pulse Oximetry 93 Oxygen Delivery Fraction of Inspired Oxygen 07/03/25 18:15 07/03/25 18:30 07/03/25 18:45 Temperature Pulse Rate 80 81 81 Respiratory Rate Blood Pressure 114/43 L 113/43 L 116/44 L Pulse Oximetry Oxygen Delivery Fraction of Inspired Oxygen 07/03/25 19:00 07/03/25 19:12 07/03/25 19:28 Temperature 37.4 C Pulse Rate 82 81 82 Respiratory Rate 17 Blood Pressure 117/43 L 123/45 L 133/47 L Pulse Oximetry 99 Oxygen Delivery Fraction of Inspired Oxygen 07/03/25 20:00 07/03/25 20:00 07/03/25 20:00 Temperature 37.6 C Pulse Rate 81 81 Respiratory Rate 16 14 Blood Pressure 135/48 L Pulse Oximetry 98 98 Oxygen Delivery Mechanical Ventilation Fraction of Inspired Oxygen 30 30 07/03/25 20:00 07/03/25 20:00 07/03/25 20:02 Temperature Pulse Rate 80 81 80 Respiratory Rate 15 Blood Pressure 136/48 L Pulse Oximetry Oxygen Delivery Fraction of Inspired Oxygen 07/03/25 20:05 07/03/25 22:00 07/03/25 22:00 Temperature 37.7 C H Pulse Rate 81 72 72 Respiratory Rate 12 Blood Pressure 128/47 L Pulse Oximetry 98 98 Oxygen Delivery Mechanical Ventilation Fraction of Inspired Oxygen 30 07/03/25 22:00 07/03/25 22:00 07/03/25 23:17 Temperature Pulse Rate 73 73 74 Respiratory Rate 12 Blood Pressure 128/47 L Pulse Oximetry 99 Oxygen Delivery Mechanical Ventilation Fraction of Inspired Oxygen 30 07/04/25 00:00 07/04/25 00:00 07/04/25 00:00 Temperature 37.4 C Pulse Rate 69 69 Respiratory Rate 12 Blood Pressure 121/45 L Pulse Oximetry 98 Oxygen Delivery Fraction of Inspired Oxygen 30 07/04/25 00:00 07/04/25 00:00 07/04/25 00:00 Temperature Pulse Rate 69 69 67 Respiratory Rate 12 12 Blood Pressure 119/45 L Pulse Oximetry 98 Oxygen Delivery Mechanical Ventilation Fraction of Inspired Oxygen 30 07/04/25 02:00 07/04/25 02:00 07/04/25 02:00 Temperature 37.0 C Pulse Rate 65 65 65 Respiratory Rate 12 12 Blood Pressure 134/47 L Pulse Oximetry 98 Oxygen Delivery Fraction of Inspired Oxygen 07/04/25 02:00 07/04/25 02:28 07/04/25 04:00 Temperature Pulse Rate 65 66 Respiratory Rate Blood Pressure 134/47 L Pulse Oximetry 100 Oxygen Delivery Mechanical Ventilation Fraction of Inspired Oxygen 30 30 07/04/25 04:00 07/04/25 04:00 07/04/25 04:00 Temperature 36.5 C Pulse Rate 65 67 63 Respiratory Rate 12 12 Blood Pressure 155/51 H Pulse Oximetry 100 98 Oxygen Delivery Mechanical Ventilation Fraction of Inspired Oxygen 30 07/04/25 05:31 07/04/25 06:00 07/04/25 06:00 Temperature 35.9 C L Pulse Rate 67 58 L 58 L Respiratory Rate 12 Blood Pressure 132/42 L Pulse Oximetry 98 98 Oxygen Delivery Mechanical Ventilation Fraction of Inspired Oxygen 30 07/04/25 07:27 Temperature Pulse Rate 55 L Respiratory Rate Blood Pressure Pulse Oximetry 99 Oxygen Delivery Mechanical Ventilation Fraction of Inspired Oxygen 30 Intake/Output Intake/Output: Intake & Output 07/01/25 07/02/25 07/03/25 07/04/25 23:59 23:59 23:59 23:59 Intake Total 1198.9 1063.6 747.8 350 Output Total 169 701 3739 470 Balance 613.9 631.6 -1002.2 -120 Meds/Results Medications: Active Medications Generic Name Dose Route Start Last Admin Trade Name Freq PRN Reason Stop Dose Admin Acetaminophen 650 mg 06/29/25 12:42 Acetaminophen 325 Mg Tablet PO Q6H PRN Mild Pain (1-3) or Fever Aspirin 325 mg 06/30/25 09:00 06/30/25 10:04 Aspirin 325 Mg Enteric Tablet PO 325 mg On Hold: 07/01/25 07:23 QAM SUPA Administration Dextrose 12.5 gm 06/29/25 12:50 Dextrose 50% 25 Gm/50 Ml Syringe IV PUSH PRN PRN Hypoglycemia Protocol Flecainide Acetate 100 mg 06/29/25 21:00 06/30/25 21:30 Flecainide Acetate 100 Mg Tablet PO Not Given On Hold: 07/01/25 07:24 Q12H SUPA Glucagon 1 mg 06/29/25 12:50 Glucagon For Inj 1 Mg Vial IM PRN PRN Hypoglycemia Protocol Glucagon 1 mg 07/01/25 02:06 Glucagon For Inj 1 Mg Vial IM PRN PRN Hypoglycemia Protocol Glucose 15 gm 06/29/25 12:50 Glucose Oral Gel 15 Gm Of Glucse In 37.5 Gm Tube PO PRN PRN Hypoglycemia Protocol Heparin Sodium (Porcine) 5,000 units 07/01/25 14:00 07/04/25 06:19 Heparin Sodium 5,000 Units/Ml Vial SUB-Q 5,000 units Q8HR SUPA Administration Albumin Human 50 mls @ 999 mls/hr 06/29/25 11:31 Albutein IVPB 07/29/25 11:30 Q10M PRN HYPOTENSION Metronidazole 500 mg in 100 mls @ 100 mls/hr 06/29/25 18:00 07/04/25 02:46 Flagyl 500 Mg/Iso Soln 100 Ml IVPB Infused Q8H SUPA Infusion Dextrose 1,000 mls @ 100 mls/hr 06/29/25 12:50 Dextrose 5% 1,000 Ml IVPB PRN PRN Hypoglycemia Protocol Cefepime HCl 1 gm/ Sodium 50 mls @ 100 mls/hr 07/01/25 14:00 07/03/25 13:24 Chloride IVPB 100 mls/hr Q24H SUPA Administration Valproate Sodium 1,000 mg/ 60 mls @ 52.5 mls/hr 07/01/25 17:00 07/04/25 08:03 Dextrose IVPB 52.5 mls/hr Q8H SUPA Administration Propofol 100 mls @ 0 mls/hr 07/01/25 12:35 07/04/25 02:00 Diprivan IV CONT 0 mcg/kg/min On Hold: 07/03/25 08:41 .Q0M SUPA 0 mls/hr Protocol Titration 0 MCG/KG/MIN Norepinephrine Bitartrate 8 mg in 250 mls @ 0 mls/hr 07/01/25 12:35 07/04/25 02:00 Levophed 8 Mg/D5w 250 Ml IV CONT 0 mcg/min .Q0M SUPA 0 mls/hr Protocol Titration Levetiracetam 1,000 mg in 100 mls @ 400 mls/hr 07/03/25 19:00 07/04/25 04:00 Keppra Iv IVPB Infused Q8H SUPA Infusion Insulin Aspart 3 - 6 units 07/01/25 06:00 07/04/25 06:17 Insulin Aspart (*Bkc) 100 Units/Ml SUB-Q Not Given Q6HR SUPA Protocol Lidocaine/Prilocaine 1 each 06/29/25 11:33 06/29/25 12:57 Lidocaine/Prilocaine Cream 2.5-2.5% Tube TOPICAL 1 each WITH DIALYSIS PRN Administration for dialysis Protocol Multi-Ingred Cream/Lotion/Oil/Oint 1 applic 07/01/25 11:00 07/04/25 08:04 Mineral Oil/White Petrolatum Ointment EACH EYE 1 applic Q12HR SUPA Administration Ondansetron HCl 4 mg 06/29/25 10:42 06/30/25 17:05 Ondansetron Inj 4 Mg/2 Ml Vial IV PUSH 4 mg Q4H PRN Administration Nausea Pantoprazole Sodium 40 mg 07/02/25 09:00 07/04/25 08:04 Pantoprazole Sodium Iv 40 Mg Vial IV PUSH 40 mg QAM SUPA Administration Polyethylene Glycol 17 gm 06/29/25 12:42 Polyethylene Glycol 3350 17 Gm Powd.Pack PO QAM PRN Constipation Sodium Chloride 10 ml 07/01/25 14:00 07/04/25 06:17 Central Line Flush IV PUSH 10 ml Q8HR SUPA Administration Sodium Chloride 20 ml 07/01/25 09:09 Central Line Flush IV PUSH PRN PRN after blood draws Tamsulosin HCl 0.4 mg 06/30/25 09:00 06/30/25 10:06 Tamsulosin Hcl 0.4 Mg Capsule PO 0.4 mg On Hold: 07/01/25 07:27 DAILY SUPA Administration Radiology Results: ITS Impressions Abdomen/Pelvis CT 06/30/25 11:54 IMPRESSION: 1. No abscess identified. No free intraperitoneal air identified. 2. Small amount of new nonspecific amount of fat stranding and fluid in the abdomen and pelvis. 3. New small right-sided pleural effusion. 4. New tiny left-sided pleural effusion. 5.There are two new moderate-sized bandlike opacities in the right lower lung and a new small bandlike opacity in the left lower lung. Differential includes atelectasis or pneumonia. Correlate clinically. Recommend follow-up to resolution. 6. Redemonstration of the mild left-sided hydronephrosis and mild left-sided hydroureter. No CT evidence for renal, ureteral or bladder calculi. 7. Slight improvement in the concentric thickening of the ramey of the bladder. Correlate clinically. 8. Redemonstration of the short segment focal thickening of the ramey of the distal descending colon and proximal sigmoid colon. Differential includes incomplete bowel wall distention, diverticulitis or mass. Chest CTA 06/30/25 22:43 IMPRESSION: No pulmonary embolus. No thoracic aortic dissection or dilatation. Large bilateral pleural effusions, right greater than left Abdomen X-Ray 07/01/25 07:07 IMPRESSION: 1. Orogastric tube in stomach. 2. Small right pleural effusion with atelectasis and/or pneumonia in the bilateral lower lung zones. Head CT 07/01/25 08:10 IMPRESSION: 1. 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 No acute intracranial process. Abdomen Ultrasound 07/01/25 13:28 IMPRESSION: 1. Common bile duct diameter of 7 mm at the upper limits of normal for age with no evident cholelithiasis, gallbladder dilation or intrahepatic biliary ductal dilation. 2. Right pleural effusion. Chest X-Ray 07/04/25 06:19 Impression: [id number] bilateral pleural effusions with bibasilar pulmonary edema/atelectasis. Support tubes, as above. Labs Labs: Laboratory Results - last 24 hr 07/01/25 07/01/25 07/01/25 05:29 07:33 15:15 WBC RBC Hgb Hct MCV MCH MCHC RDW Plt Count MPV Immature Gran % (Auto) Neut % (Auto) Lymph % (Auto) [place] % (Auto) Eos % (Auto) Baso % (Auto) Lymph # (Auto) [place] # (Auto) Eos # (Auto) Baso # (Auto) Abs Immat Gran (auto) Absolute Neuts (auto) Absolute Nucleated RBC Nucleated RBC % PT INR APTT Puncture Site ABG pH ABG pCO2 ABG pO2 ABG PO2/FiO2 Ratio Not Reportable ABG HCO3 ABG O2 Saturation Not Reportable ABG O2 Content Not Reportable ABG Base Excess A-a Gradient Not Reportable Oxyhemoglobin Carboxyhemoglobin Methemoglobin Reduced Hemoglobin Total Hemoglobin O2 Delivery Device O2 Liters/Min Minute Volume Not Reportable Not Reportable Not Reportable Vent Rate 18 18 16 Vent Mode Cmv Cmv Cmv FiO2 Tidal Volume 450 450 420 PEEP 5 5 5 Peak Inspir Pressure Not Reportable Not Reportable Not Reportable Pressure Support Not Reportable Not Reportable Not Reportable Sodium Potassium Chloride Carbon Dioxide Anion Gap BUN Creatinine Estim Creat Clear Calc Estimated GFR Glucose POC Capillary Glucose Lactic Acid Calcium Phosphorus Magnesium Total Bilirubin AST ALT Alkaline Phosphatase Total Protein Albumin Triglycerides 07/03/25 07/03/25 07/03/25 04:12 11:47 19:08 WBC RBC Hgb Hct MCV MCH MCHC RDW Plt Count MPV Immature Gran % (Auto) Neut % (Auto) Lymph % (Auto) [place] % (Auto) Eos % (Auto) Baso % (Auto) Lymph # (Auto) [place] # (Auto) Eos # (Auto) Baso # (Auto) Abs Immat Gran (auto) Absolute Neuts (auto) Absolute Nucleated RBC Nucleated RBC % PT INR APTT Puncture Site ABG pH ABG pCO2 ABG pO2 ABG PO2/FiO2 Ratio ABG HCO3 ABG O2 Saturation ABG O2 Content ABG Base Excess A-a Gradient Oxyhemoglobin Carboxyhemoglobin Methemoglobin Reduced Hemoglobin Total Hemoglobin O2 Delivery Device O2 Liters/Min Minute Volume Vent Rate Vent Mode FiO2 Tidal Volume PEEP Peak Inspir Pressure Pressure Support Sodium Potassium Chloride Carbon Dioxide Anion Gap BUN Creatinine Estim Creat Clear Calc Estimated GFR Glucose POC Capillary Glucose 78 76 Lactic Acid Calcium Phosphorus Magnesium Total Bilirubin AST ALT Alkaline Phosphatase Total Protein Albumin Triglycerides 286 H 07/04/25 07/04/25 07/04/25 00:06 03:45 04:11 WBC 9.3 RBC 2.70 L Hgb 8.7 L Hct 26.5 L MCV 98.1 MCH 32.2 MCHC 32.8 RDW 14.6 H Plt Count 111 L MPV 9.8 Immature Gran % (Auto) 0.3 Neut % (Auto) 43.1 L Lymph % (Auto) 51.2 H [place] % (Auto) 4.3 Eos % (Auto) 0.6 Baso % (Auto) 0.5 Lymph # (Auto) 4.75 H [place] # (Auto) 0.4 Eos # (Auto) 0.1 Baso # (Auto) 0.1 Abs Immat Gran (auto) 0.03 Absolute Neuts (auto) 4.0 Absolute Nucleated RBC 0.030 H Nucleated RBC % 0.3 H PT 15.7 H INR 1.3 APTT 55.0 H Puncture Site ABG pH ABG pCO2 ABG pO2 ABG PO2/FiO2 Ratio ABG HCO3 ABG O2 Saturation ABG O2 Content ABG Base Excess A-a Gradient Oxyhemoglobin Carboxyhemoglobin Methemoglobin Reduced Hemoglobin Total Hemoglobin O2 Delivery Device O2 Liters/Min Minute Volume Vent Rate Vent Mode FiO2 Tidal Volume PEEP Peak Inspir Pressure Pressure Support Sodium 134 L Potassium 4.2 Chloride 102 Carbon Dioxide 24 Anion Gap 8 BUN 34 H D Creatinine 4.59 H Estim Creat Clear Calc 15 Estimated GFR 13 L Glucose 85 POC Capillary Glucose 82 Lactic Acid 0.9 Calcium 8.4 Phosphorus 5.0 H Magnesium 2.0 Total Bilirubin 0.5 AST 98 H ALT 167 H Alkaline Phosphatase 74 Total Protein 5.8 L Albumin 2.8 L Triglycerides 07/04/25 05:11 WBC RBC Hgb Hct MCV MCH MCHC RDW Plt Count MPV Immature Gran % (Auto) Neut % (Auto) Lymph % (Auto) [place] % (Auto) Eos % (Auto) Baso % (Auto) Lymph # (Auto) [place] # (Auto) Eos # (Auto) Baso # (Auto) Abs Immat Gran (auto) Absolute Neuts (auto) Absolute Nucleated RBC Nucleated RBC % PT INR APTT Puncture Site Artline ABG pH 7.417 ABG pCO2 34.1 L ABG pO2 79.8 L ABG PO2/FiO2 Ratio 2.66 ABG HCO3 21.5 L ABG O2 Saturation 96.1 ABG O2 Content 11.3 L ABG Base Excess -2.6 A-a Gradient 94.0 Oxyhemoglobin 93.4 Carboxyhemoglobin 1.7 Methemoglobin 0.3 Reduced Hemoglobin 4.6 Total Hemoglobin 8.5 L O2 Delivery Device Ventilator O2 Liters/Min Not Reportable Minute Volume Not Reportable Vent Rate 12 Vent Mode Cmv FiO2 30 Tidal Volume 370 PEEP 8 Peak Inspir Pressure Not Reportable Pressure Support Not Reportable Sodium Potassium Chloride Carbon Dioxide Anion Gap BUN Creatinine Estim Creat Clear Calc Estimated GFR Glucose POC Capillary Glucose Lactic Acid Calcium Phosphorus Magnesium Total Bilirubin AST ALT Alkaline Phosphatase Total Protein Albumin Triglycerides Quality VTE Prophylaxis VTE prophylaxis: pharmacologic ordered
--- NOTE | 2025-07-04 09:50 | P.PNNP_ITS ---
Progress Note: A&P Assessment and Plan (1) End stage renal disease: Code(s): N18.6 - End stage renal disease Status: Chronic Assessment and Plan: * normally does home hemodialysis 4x/week * HD yesterday * follow electrolytes, volume status, and clearance (2) Cardiac arrest: Code(s): I46.9 - Cardiac arrest, cause unspecified Status: Acute Assessment and Plan: * as noted on 06/29 * ACLS protocol with ROSC after 18 minutes * unclear down time prior to initiation of ACLS * etiology remains unclear -- aspiration, arrhythmia, hypoxia, other(?) * s/p TTM and rewarmed * continue supportive therapy (3) Acute respiratory failure with hypoxia: Code(s): J96.01 - Acute respiratory failure with hypoxia Status: Acute Assessment and Plan: * secondary to cardiac arrest * imaging noted with large pleural effusions * remains on ventilator support * off sedation at this time - (4) Diverticulitis: Code(s): K57.92 - Diverticulitis of intestine, part unspecified, without perforation or abscess without bleeding Status: Acute Assessment and Plan: * as suspected from recent CT of A/P: * short segment focal thickening of the ramey of the distal descending colon and proximal sigmoid colon. Differential includes incomplete bowel wall distention, diverticulitis or mass...recommend follow-up to resolution. 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, not intractable, without status epilepticus Status: Acute Assessment and Plan: * noted following cardiac arrest * no previous history * present even when on versed * minimal improvement with Ativan * required use of propofol * on IV keppra and valproic acid * Neurology following * follow-up on EEG (6) Anoxic brain injury: Code(s): G93.1 - Anoxic brain damage, not elsewhere classified Status: Acute Assessment and Plan: * suspected based on evidence to date * prolonged downtime prior to ROSC * myoclonic seizures (despite no history) * remains unresponsive off all sedation * head CT without any acute pathology * follow-up on EEG (7) Anemia: Code(s): D64.9 - Anemia, unspecified Status: Acute Assessment and Plan: * due to ESRD and acute illness * getting Epogen with HD * follow trend of H/H (8) PAF (paroxysmal atrial fibrillation): Code(s): I48.0 - Paroxysmal atrial fibrillation Status: Chronic Assessment and Plan: * continue rate control strategy * holding anticoagulation (9) HTN (hypertension): Qualifiers: Hypertension type: unspecified Qualified Code(s): I10 - Essential (primary) hypertension Code(s): I10 - Essential (primary) hypertension Status: Chronic Assessment and Plan: * relatively stable * follow trend of hemodynamics (10) Diabetes: Qualifiers: Diabetes mellitus type: type 2 Diabetes mellitus shelter insulin use: without shelter use Diabetes mellitus complication status: with hyperglycemia Qualified Code(s): E11.65 - Type 2 diabetes mellitus with hyperglycemia Code(s): E11.9 - Type 2 diabetes mellitus without complications Status: Chronic Assessment and Plan: * follow accu-checks * appears diet control as an outpatient * glycemic control per hospitalist/coding quality coordinator Repeat imaging planned along with further discussion with family regarding level of care given no significant neurological improvement despite all interventions to date. Will continue to follow. L Subjective Date/time seen: 07/04/25 09:50 Interval history: Follow-up for end stage renal disease on hemodialysis. No significant change noted when seen -- remains intubated and on mechanical ventilation; remains off sedation and despite this along with dialysis yesterday, he remains unresponsive; stable hemodynamics noted; no other issues/events overnight or this morning; repeat imaging ordered (CT of head and chest) ordered. Exam 2 Narrative: General: elderly but WD/WN male intubated and on mechanical ventilation Heart: normal S1 and S2; no rub Lungs: decreased at bases Abdomen: soft, nontender, absent bowel sounds Extremities: no cyanosis or clubbing; 1+ edema; s/p right BKA Skin: no rash Objective Data Vital Signs Vital Signs: Vital Signs Temp Pulse Resp BP Pulse Ox O2 Del Method FiO2 07/04/25 08:00 96.5 F L 55 L 12 147/48 H 99 07/04/25 08:00 30 07/04/25 08:00 55 L 07/04/25 07:27 55 L 99 Mechanical Ventilation 30 07/04/25 06:00 58 L 07/04/25 06:00 96.7 F L 58 L 12 132/42 L 98 07/04/25 05:31 67 98 Mechanical Ventilation 30 07/04/25 04:00 63 12 98 Mechanical Ventilation 30 07/04/25 04:00 67 07/04/25 04:00 97.7 F 65 12 155/51 H 100 07/04/25 04:00 30 07/04/25 02:28 66 100 Mechanical Ventilation 30 07/04/25 02:00 65 134/47 L 07/04/25 02:00 65 12 07/04/25 02:00 98.6 F 65 12 134/47 L 98 07/04/25 02:00 65 07/04/25 00:00 67 119/45 L 07/04/25 00:00 69 12 07/04/25 00:00 69 12 98 Mechanical Ventilation 30 07/04/25 00:00 69 07/04/25 00:00 30 07/04/25 00:00 99.3 F 69 12 121/45 L 98 07/03/25 23:17 74 99 Mechanical Ventilation 30 07/03/25 22:00 73 128/47 L 07/03/25 22:00 73 12 07/03/25 22:00 99.9 F H 72 12 128/47 L 98 07/03/25 22:00 72 07/03/25 20:05 81 98 Mechanical Ventilation 30 07/03/25 20:02 80 15 07/03/25 20:00 81 136/48 L 07/03/25 20:00 80 07/03/25 20:00 81 14 98 Mechanical Ventilation 30 07/03/25 20:00 30 07/03/25 20:00 99.6 F 81 16 135/48 L 98 07/03/25 19:28 99.3 F 82 17 133/47 L 99 07/03/25 19:12 81 123/45 L 07/03/25 19:00 82 117/43 L Intake/Output Intake/Output: Intake & Output 07/01/25 07/02/25 07/03/25 07/04/25 23:59 23:59 23:59 23:59 Intake Total 1198.9 1063.6 747.8 510 Output Total 601 558 9446 470 Balance 613.9 631.6 -1002.2 40 Meds/Results Medications: Active Medications Generic Name Dose Route Start Trade Name Freq PRN Reason Stop Acetaminophen 650 mg 06/29/25 12:42 Acetaminophen 325 Mg Tablet PO Q6H PRN Mild Pain (1-3) or Fever Aspirin 325 mg 06/30/25 09:00 Aspirin 325 Mg Enteric Tablet PO QAM SUPA Dextrose 12.5 gm 06/29/25 12:50 Dextrose 50% 25 Gm/50 Ml Syringe IV PUSH PRN PRN Hypoglycemia Protocol Epoetin Christian-epbx 10,000 units 07/03/25 21:00 Epoetin Christian-Epbx 10,000 Units/Ml Vial IV PUSH 07/03/25 21:01 ONCE ONE Flecainide Acetate 100 mg 06/29/25 21:00 Flecainide Acetate 100 Mg Tablet PO Q12H SUPA Glucagon 1 mg 06/29/25 12:50 Glucagon For Inj 1 Mg Vial IM PRN PRN Hypoglycemia Protocol Glucagon 1 mg 07/01/25 02:06 Glucagon For Inj 1 Mg Vial IM PRN PRN Hypoglycemia Protocol Glucose 15 gm 06/29/25 12:50 Glucose Oral Gel 15 Gm Of Glucse In 37.5 Gm Tube PO PRN PRN Hypoglycemia Protocol Heparin Sodium (Porcine) 5,000 units 07/01/25 14:00 Heparin Sodium 5,000 Units/Ml Vial SUB-Q Q8HR [facility] Albumin Human 50 mls @ 999 mls/hr 06/29/25 11:31 Albutein IVPB 07/29/25 11:30 Q10M PRN HYPOTENSION Metronidazole 500 mg in 100 mls @ 100 mls/hr 06/29/25 18:00 Flagyl 500 Mg/Iso Soln 100 Ml IVPB Q8H SUPA Dextrose 1,000 mls @ 100 mls/hr 06/29/25 12:50 Dextrose 5% 1,000 Ml IVPB PRN PRN Hypoglycemia Protocol Levetiracetam 500 mg in 100 mls @ 400 mls/hr 07/01/25 09:00 Keppra Iv IVPB Q12HR SUPA Cefepime HCl 1 gm/ Sodium 50 mls @ 100 mls/hr 07/01/25 14:00 Chloride IVPB Q24H SUPA Valproate Sodium 1,000 mg/ 60 mls @ 52.5 mls/hr 07/01/25 17:00 Dextrose IVPB Q8H SUPA Propofol 100 mls @ 0 mls/hr 07/01/25 12:35 Diprivan IV CONT .Q0M [facility] Protocol 0 MCG/KG/MIN Norepinephrine Bitartrate 8 mg in 250 mls @ 0 mls/hr 07/01/25 12:35 Levophed 8 Mg/D5w 250 Ml IV CONT .Q0M [facility] Protocol Insulin Aspart 3 - 6 units 07/01/25 06:00 Insulin Aspart (*Bkc) 100 Units/Ml SUB-Q Q6HR [facility] Protocol Lidocaine/Prilocaine 1 each 06/29/25 11:33 Lidocaine/Prilocaine Cream 2.5-2.5% Tube TOPICAL WITH DIALYSIS PRN for dialysis Protocol Multi-Ingred Cream/Lotion/Oil/Oint 1 applic 07/01/25 11:00 Mineral Oil/White Petrolatum Ointment EACH EYE Q12HR [facility] Ondansetron HCl 4 mg 06/29/25 10:42 Ondansetron Inj 4 Mg/2 Ml Vial IV PUSH Q4H PRN Nausea Pantoprazole Sodium 40 mg 07/02/25 09:00 Pantoprazole Sodium Iv 40 Mg Vial IV PUSH QAM SUPA Polyethylene Glycol 17 gm 06/29/25 12:42 Polyethylene Glycol 3350 17 Gm Powd.Pack PO QAM PRN Constipation Sodium Chloride 10 ml 07/01/25 14:00 Central Line Flush IV PUSH Q8HR SUPA Sodium Chloride 20 ml 07/01/25 09:09 Central Line Flush IV PUSH PRN PRN after blood draws Tamsulosin HCl 0.4 mg 06/30/25 09:00 Tamsulosin Hcl 0.4 Mg Capsule PO DAILY [facility] Radiology Results: ITS Impressions Abdomen/Pelvis CT 06/30/25 11:54 IMPRESSION: 1. No abscess identified. No free intraperitoneal air identified. 2. Small amount of new nonspecific amount of fat stranding and fluid in the abdomen and pelvis. 3. New small right-sided pleural effusion. 4. New tiny left-sided pleural effusion. 5.There are two new moderate-sized bandlike opacities in the right lower lung and a new small bandlike opacity in the left lower lung. Differential includes atelectasis or pneumonia. Correlate clinically. Recommend follow-up to resolution. 6. Redemonstration of the mild left-sided hydronephrosis and mild left-sided hydroureter. No CT evidence for renal, ureteral or bladder calculi. 7. Slight improvement in the concentric thickening of the ramey of the bladder. Correlate clinically. 8. Redemonstration of the short segment focal thickening of the ramey of the distal descending colon and proximal sigmoid colon. Differential includes incomplete bowel wall distention, diverticulitis or mass. Chest CTA 06/30/25 22:43 IMPRESSION: No pulmonary embolus. No thoracic aortic dissection or dilatation. Large bilateral pleural effusions, right greater than left Abdomen X-Ray 07/01/25 07:07 IMPRESSION: 1. Orogastric tube in stomach. 2. Small right pleural effusion with atelectasis and/or pneumonia in the bilateral lower lung zones. Abdomen Ultrasound 07/01/25 13:28 IMPRESSION: 1. Common bile duct diameter of 7 mm at the upper limits of normal for age with no evident cholelithiasis, gallbladder dilation or intrahepatic biliary ductal dilation. 2. Right pleural effusion. Chest X-Ray 07/04/25 06:19 Impression: [id number] bilateral pleural effusions with bibasilar pulmonary edema/atelectasis. Support tubes, as above. Labs Labs: Laboratory Tests 07/04/25 04:11 07/04/25 04:11 Lactic Acid 0.9 Calcium 8.4 Phosphorus 5.0 H Magnesium 2.0 Total Bilirubin 0.5 AST 98 H ALT 167 H Alkaline Phosphatase 74 Total Protein 5.8 L Albumin 2.8 L
--- NOTE | 2025-07-04 11:30 | PCNFU ---
Nutrition Follow-Up Complete: Increased protein energy needs related to mechanical ventilation as evidenced by need for trophic tube feedings Goal: Meet estimated protein energy needs Patient will continue current goal. Pt current nutrition is Nepro at 20 ml/hr. Nutrition recommendation: goal rate 40 ml/hr. Last recorded weight is 83.9 kg, down from 86.5 kg on admit. Bowel Motility: No BM Labs Reviewed:Cr 4.59, BUN 34, Na 134, Hct 26.5, Hgb 8.7, Alb 2.8 Meds Noted: Keppra, Protonix Skin: WNL Additional Notes: Patient remains on mechanical vent. Tube feedings started today of Nepro at 20 ml/hr, providing 440 kcal/ 36 gm protein/320 ml water. Flush 30 ml q 4hours. Plans for CT today. EEG 07/03. Monitoring daily in ICU rounds. Checking vitals, weights, labs, output, tube feeding tolerance, meds, plan of care every Thursday/Thursday.
--- NOTE | 2025-07-04 14:27 | PM.EVENT ---
Event Note Event Note Event Note: Head CT and chest CT reports reviewed. Discussed with Dr. Loyola from neurology recommended increasing Keppra to 1.5 g IV q.8 hours I met with patient's daughter brother sister and ex-. We went over patient's current condition including no significant improvement in mental status over last 24 hours despite holding sedation and doing dialysis. I also discuss results of EEG. We discussed his other comorbidities like and super disease requiring hemodialysis. We discussed goals of care. They told me the patient did not wanted to stay on mechanical ventilation and if his prognosis was not good and he had sustained anoxic brain injury he would now want to continue on mechanical ventilation and artificial feeding support. I discussed option of palliative extubation and comfort care. I answered all their questions. They are going to discuss among themselves and other family members before making final decision.
--- NOTE | 2025-07-04 16:04 | PC.NURSE ---
HELENEA, Ana, and family have decided to withdraw care and focus on maintaining comfort in end of life care. Orders obtained.
[2025-07-04] MEDS: LORazepam INJ (*CRX) 2 MG/ML VIAL IV PUSH (16:07)
[2025-07-04] MEDS: MORPHINE SULFATE INJ (*CRX) 10 MG/ML AMP 5 MG IV PUSH (16:07)
--- NOTE | 2025-07-08 10:12 | P.DN_ITS ---
Discharge Summary Date and Time Date of : 07/04/25 Time of : 16:24 Provider Pronounced By: 2 RNs Name of First RN That Pronounced: Padmini Fernandes RN Name of Second RN That Pronounced: Adi Brewer RN Probable Cause of Probable Cause of : Anoxic brain injury, cardiac arrest, acute respiratory failure Summary Hospital Course: Patient was admitted on 06/29 with nausea vomiting and abdominal pain. Patient has history of peripheral vascular disease anemia and stated in disease on hemodialysis hypertension IBS and diabetes. Patient was diagnosed with diverticulitis and started on antibiotics. Nephrology was consulted for manage ment of dialysis. Patient was also evaluated by GI. On 07/01 patient had a cardiac arrest. Code blue was called at 8:26 p.m. patient was found by staff without pulse or spontaneous respiration. Unknown down time as lasts was seen at shift change. Patient was given multiple dose of epinephrine bicarb calcium amiodarone and 1 DC shock of 200 joules. Patient initially was asystole then went to PE a and then 1 episode of V-tach. Patient was intubated. Patient was transferred to ICU started on sedatives a CTA was done which was negative for PE. Patient was also evaluated by Cardiology. Post cardiac arrest patient exhibited signs of anoxic brain injury in the form of myoclonic jerking versus seizures. Patient was started onTTM protocol. CT scan at that time only showed left para falcine meningioma which appeared chronic. Patient was placed on mechanical ventilation. Neurology was consulted and patient was started on Keppra and later valproic acid was added. Patient was treated with propofol infusion. Patient completed hypothermia protocol and was rewarmed and on holding sedation did not show any purposeful movement. EEG was done which showed electrographic seizure activity. His anti seizure medications does was adjusted and Keppra was increased. Patient was dialyzed to remove any potential sedatives although he was just on propofol by then. Propofol was held for more than a day with no improvement in patient's neurological response he was completely unresponsive to painful stimuli with no clinical signs of seizures. During this. I had meeting with patient's daughter brother sister and ex-. We went over patient's condition including no significant improvement in mental status over 24 hours despite holding sedation and doing dialysis. I also discuss results of EEG. We discussed his other comorbidities like and end-stage renal disease requiring hemodialysis. We discussed goals of care. They told me the patient did not wanted to stay on mechanical ventilation and if his prognosis was not good and he had sustained anoxic brain injury he would not want to continue on mechanical ventilation and artificial feeding support. I discussed option of palliative extubation and comfort care. I answered all their questions. They a told me that they were going to discuss among themselves and and call other family members other family members to visit patient before making final decision. Once all the family members arrived they decided to proceed with palliative extubation and comfort care measures only as consistent with patient's expressed wishes to them. Patient was palliatively extubated and placed on comfort measures and was pronounced at 4:24 p.m. Additional Data Confirmation of as documented by pronouncing clinician: Pupillary Reflex, Palpable Pulses, Response to Stimuli, Heart Tones and Breath Sounds Name of Provider Notified: dr. agustin Time Provider Notified: 16:25 Provider Requests Autopsy: No Family Requests Autopsy: No Activities Volunteer Notified: Yes Date [facility] Notified of : 07/04/25 Time [facility] Notified of : 16:45
== END 2025-07-04 16:24 | disposition expired | DRG 391 ==
LOC: ANHED 10:42 → ANH3MEDSUR 11:35 → ANHICU 06-30 21:28
PROVIDERS: Emergency Medicine; Internal Medicine; Nurse Practitioner Adult Health; Student in an Organized Health Care Education/Training Program; Admitting Provider Family Medicine; Emergency Provider Registered Nurse; PCP Family Medicine; Visit Provider Internal Medicine
DX: K57.32 Diverticulitis of large intestine without perforation or abscess without bleeding (principal); J96.01 Acute respiratory failure with hypoxia; N18.6 End stage renal disease; I12.0 Hypertensive chronic kidney disease with stage 5 chronic kidney disease or end stage renal disease; N13.30 Unspecified hydronephrosis; I47.20 Ventricular tachycardia, unspecified; I45.2 Bifascicular block; G93.1 Anoxic brain damage, not elsewhere classified; J95.811 Postprocedural pneumothorax; G40.401 Other generalized epilepsy and epileptic syndromes, not intractable, with status epilepticus; E11.22 Type 2 diabetes mellitus with diabetic chronic kidney disease; K58.9 Irritable bowel syndrome, unspecified; I48.0 Paroxysmal atrial fibrillation; E11.65 Type 2 diabetes mellitus with hyperglycemia; I46.9 Cardiac arrest, cause unspecified; D32.0 Benign neoplasm of cerebral meninges; I27.20 Pulmonary hypertension, unspecified; E11.51 Type 2 diabetes mellitus with diabetic peripheral angiopathy without gangrene; D63.1 Anemia in chronic kidney disease; I35.0 Nonrheumatic aortic (valve) stenosis; R15.9 Full incontinence of feces; F41.9 Anxiety disorder, unspecified; F32.A Depression, unspecified; Z99.2 Dependence on renal dialysis; Z89.511 Acquired absence of right leg below knee
CPT/HCPCS: 36415; 36600; 70450; 71045; 71250; 71275; 74176; 76705; 80048; 80053; 81001; 82140; 82375; 82550; 82805; 82948; 83036; 83050; 83605; 83690; 83735; 84100; 84443; 84478; 84484; 85018; 85025; 85027; 85055; 85610; 85730; 86140; 87040; 87641; 92950; 93005; 94002; 94003; 95816; 96361; 96365; 96367; 96368; 96375; 96376; 99284; 99285; A9270; C1751; C8929; G0257; G0378; J0168; J0282; J0692; J0696; J1171; J1200; J1644; J1815; J1836; J1938; J1953; J2060; J2250; J2270; J2405; J2470; J2704; J2765; J3010; J7030; J7040; P9047; Q5105; Q9957; Q9967